=== PATIENT | male | born 1935 | race Caucasian/White ===

== ENCOUNTER → 2016-07-02 | Outpatient (CLI) | payer OTHER ==
[~2016-07-02] MED LIST: ACET-1256 PO; AMOX500C3 PO; AMOX500T PO; ASCO10003 PO; ASPI81TA28 PO; ATOR-26 PO; CALC600T9 PO; CHOL100010 PO; CHOL2000 PO; DIGO0.1267 PO; DOCU-94 PO; DOXY-300 PO; FURO-85 PO; GABA-112 PO; GABA1CAP4 PO; HMLI7525 SC; INSDGI SC; INSU50IN SC; LEVO112T4 PO; LEVO1TAB33 PO; LNX125 PO; LSN20 PO; METO1TAB70 PO; MULT-506 PO; NTRGSL/4 SL; NVLGI SC; POLY335019 PO; RIVA1.5T PO; SULF-183 PO; SULF800T23 PO; TRAM-10 PO; ULT50X PO; VITA400C15 PO; VITACAP37 PO; ZNTT/150 PO; [UNRECOGNIZED DRUG - CODE] PO
[2016-07-02 19:12] LABS: BLOOD UREA NITROGEN 65 mg/dl (7-18); BUN/CREATININE RATIO 19.7 (10-20); CALCIUM 9.1 mg/dl (8.5-10.1); CARBON DIOXIDE 27 mmol/L (21-32); CHLORIDE 98 mmol/L (98-107); GLUCOSE 299 mg/dl (70-99); POTASSIUM 4.6 mmol/L (3.5-5.1); SODIUM 136 mmol/L (136-145)
== END | disposition home or self-care (01) ==
LOC: C.LABBFT 11:56
PROVIDERS: ATTEND Internal Medicine Nephrology
DX: I12.9 Hypertensive chronic kidney disease with stage 1 through stage 4 chronic kidney disease, or unspecified chronic kidney disease (principal); R80.9 Proteinuria, unspecified; E55.9 Vitamin D deficiency, unspecified; N18.4 Chronic kidney disease, stage 4 (severe); R60.9 Edema, unspecified

== ENCOUNTER → 2016-07-29 | Outpatient (CLI) | payer OTHER ==
[2016-07-29 12:13] LABS: HEMATOCRIT 38.2 % (42-52); MEAN CORPUSCULAR HEMOGLOBIN 31.9 pg (25-34); MEAN CORPUSCULAR HGB CONC 33.2 g/dl (32-36); MEAN PLATELET VOLUME 10.5 fL (7.4-10.4); PLATELET COUNT 162 K/uL (130-400); RED BLOOD COUNT 3.98 M/uL (4.7-6.1); WHITE BLOOD COUNT 6.11 K/uL (4.8-10.8)
[2016-07-29 12:30] LABS: ESTIMATED AVERAGE GLUCOSE 246 mg/dl; HA1C FLAG Normal (Normal)
[2016-07-29 12:47] LABS: ALT/SGPT 27 U/L (12-78); BLOOD UREA NITROGEN 43 mg/dl (7-18); BUN/CREATININE RATIO 15.5 (10-20); CALCIUM 9.2 mg/dl (8.5-10.1); CARBON DIOXIDE 29 mmol/L (21-32); CHLORIDE 97 mmol/L (98-107); CHOLESTEROL 128 mg/dl (0-200); GLUCOSE 469 mg/dl (70-99); HDL CHOLESTEROL 32 mg/dl; LDL CHOLESTEROL CALCULATED 60 mg/dl; PHOSPHORUS 3.3 mg/dl (2.5-4.9); POTASSIUM 5.1 mmol/L (3.5-5.1); SODIUM 133 mmol/L (136-145); TRIGLYCERIDES 181 mg/dl (0-150); VERY LOW DENSITY LIPOPROT CALC 36 mg/dl
[2016-07-29 13:01] LABS: BETA-HYDROXYBUTYRATE 2.13 mg/dL (0.2-2.81)
== END | disposition home or self-care (01) ==
LOC: C.LAB 11:36
PROVIDERS: ATTEND Internal Medicine Endocrinology, Diabetes & Metabolism
DX: E11.9 Type 2 diabetes mellitus without complications (principal); I12.9 Hypertensive chronic kidney disease with stage 1 through stage 4 chronic kidney disease, or unspecified chronic kidney disease; I42.9 Cardiomyopathy, unspecified; E55.9 Vitamin D deficiency, unspecified; N18.4 Chronic kidney disease, stage 4 (severe); R60.9 Edema, unspecified

== ENCOUNTER → 2016-09-22 | Outpatient (CLI) | payer OTHER ==
[~2016-09-22] MED LIST changes: +CEPH500C PO; -FURO-85 PO; -INSDGI SC; +METO-648 PO; -METO1TAB70 PO
--- NOTE | 2016-09-22 15:11 | DIAGNOSTIC IMAGING REPORT ---
TEMPORAL BONE CT WITHOUT CONTRAST HISTORY: H90.5 Asymmetric SNHL (sensorineural hearing loss)PATIENT WITH L TECHNIQUE: Multiaxial CT images of the temporal bones were performed and reformatted in the coronal plane. COMPARISON STUDY: Head CT 05/19/2016. FINDINGS: On the right, the external auditory canal is patent. The middle ear cavity and mastoid air cells are clear. The ossicles are well aligned. The tympanic membrane demonstrates a normal position and thickness. The 7th cranial nerve describes a normal course. No evidence for inner ear dysplasia. The study is technically inadequate to evaluate for an internal auditory canal mass. However, no definite masses identified. On the left, the external auditory canal is patent. The middle ear cavity and mastoid air cells are clear. The ossicles are well aligned. The tympanic membrane demonstrates a normal position and thickness. The 7th cranial nerve describes a normal course. No evidence for inner ear dysplasia. The study is technically inadequate to evaluate for an internal auditory canal mass. However, no definite masses identified. Fluid level with near complete opacification of the left maxillary sinus and left anterior ethmoid air cells. Heterogeneity within the bones of the skull base may be due to osteoporosis. This remains unchanged. IMPRESSION: 1. Normal bilateral temporal bones. The study is technically inadequate to evaluate for an internal auditory canal mass. However, no definite masses identified. 2. Fluid levels within the near complete opacification of the left maxillary sinus and left anterior ethmoid air cells consistent with acute sinusitis. 3. Stable heterogeneity within the bones of the skull base. Given the stability this favors osteoporosis. Multiple myeloma could also have a similar appearance in the appropriate clinical setting. Electronically signed by: Alek Dennis M.D. 09/22/2016 3:10 PM Dictated Date/Time: 09/22/2016 2:58 PM
== END | disposition home or self-care (01) ==
LOC: C.CTS 12:50
DX: H90.5 Unspecified sensorineural hearing loss (principal); R93.0 Abnormal findings on diagnostic imaging of skull and head, not elsewhere classified

== ENCOUNTER 2016-09-27 10:23 | Emergency (ER) | payer OTHER ==
[~2016-09-27] VITALS: Ht 171.5 cm; Wt 112.1 kg
[~2016-09-27 10:23] MED LIST changes: -AMOX500T PO; -CEPH500C PO; -CHOL2000 PO; -GABA1CAP4 PO; -INSU50IN SC; -LEVO1TAB33 PO; -LNX125 PO; -SULF-183 PO; -TRAM-10 PO; -VITACAP37 PO
[2016-09-27 10:33] VITALS: TEMP 36.5; Ht 171.5 cm; Wt 112.1 kg
[2016-09-27] MEDS ORDERED: INSU50IN SC ×2 (11:16)
[2016-09-27] MEDS ORDERED: LEVO1TAB33 PO (11:16)
[2016-09-27] MEDS ORDERED: CHOL2000 PO (11:16)
[2016-09-27] MEDS ORDERED: LNX125 PO (11:16)
[2016-09-27] MEDS ORDERED: TRAM-10 PO (11:16)
[2016-09-27] MEDS ORDERED: SULF-183 PO (11:16)
[2016-09-27] MEDS ORDERED: VITACAP37 PO (11:16)
[2016-09-27] MEDS ORDERED: GABA1CAP4 PO (11:16)
--- NOTE | 2016-09-27 11:41 | DIAGNOSTIC IMAGING REPORT ---
CHEST 2 VIEWS ROUTINE CLINICAL HISTORY: Cough. COMPARISON STUDY: Chest radiograph May 09, 2014. FINDINGS: There are median sternotomy wires, mediastinal surgical clips and a left subclavian biventricular pacer/AICD. Cardiomediastinal silhouette is stable. There is no evidence of pulmonary edema. There is no consolidation to suggest pneumonia. A calcified right midlung nodule is again noted. IMPRESSION: No acute cardiopulmonary findings. Electronically signed by: Neto Aguilar M.D. 09/27/2016 11:39 AM Dictated Date/Time: 09/27/2016 11:38 AM
--- NOTE | 2016-09-27 12:32 | EMERGENCY ROOM VISIT NOTE ---
ED Visit Note First contact with patient: 10:42 81-year-old male with sinus drainage was fully evaluated by Octavio Stinson PA-C. I also independently evaluated the patient. The patient is currently on multiple antibiotics. The patient is to follow-up in wound care center tomorrow and further evaluation of the appropriate medications will be discussed at that appointment. The patient was felt safe to return home at this time.
[2016-09-27 12:50] VITALS: BP 131/69; PULSE 71; O2SAT 97
--- NOTE | 2016-10-03 07:31 | EMERGENCY ROOM VISIT NOTE ---
History First contact with patient: 10:42 Chief Complaint: COUGH Stated Complaint: COUGHING, SOB Nursing Triage Summary: Patient ambulatory to triage using cane, states he didn't sleep a wink last night due to "phlegm in my throat". Coughing but can't always clear his throat. Patient states cough began 2-3 days ago. Pt states patient has had cough intermittently x 1 month. Blood tinged sputum when he blows his nose. DM wound on right lower. Being treated. History of Present Illness The patient is a 81 year old white male who presents to the Emergency Room with complaints of persistent cough and some shortness of breath. He states he has had a cough for the last 3 days. There has been present intermittently for the last month. He has seen his PCP and was placed on an antibiotic for sinusitis. He states last night he felt as though he couldn't breathe when he laid down. This was because of thick phlegm in his throat. He complains of drainage down his throat from his sinuses. Cough is occasionally productive, but also occasionally nonproductive. He denies any chest pain. No fevers, chills, or sweats. No nausea or vomiting. No abdominal pain. He does complain of rhinorrhea that is occasionally blood-tinged. No other complaints. Of note, he is a diabetic and states he has a wound on his right lower leg that is being treated by the wound care center. He is on 2 additional antibiotics because of his leg wound. He is not seeking treatment for that here at this time. Review of Systems REVIEW OF SYSTEM: HEENT: No dizziness, visual problems, hearing loss, or tinnitus. There is no difficulty swallowing and no oral lesions are present. LYMPH: No adenopathy. PULMONARY: No hemoptysis. Positive cough, short of breath, and phlegm production. CARDIOVASCULAR: No chest pain, palpitations, or peripheral edema. GASTROINTESTINAL: No diarrhea, constipation, nausea, vomiting, or abdominal pain. GENITOURINARY: No dysuria, frequency, urgency or nocturia. NEUROLOGIC: No weakness, muscle tenderness, epilepsy or history of neurological problems. MUSCULOSKELETAL: No history of joint tenderness/swelling. Positive history of arthritis and arthralgias. SKIN: No rashes or lesions. PSYCHIATRIC: No history of depression or mental illness. ENDOCRINE: No history of thyroid disorders, or abnormal hair growth. Past Medical/Surgical History Medical Problems: (1) Coronary artery disease (2) Diabetes mellitus type 2, insulin dependent (3) Hypercholesterolemia (4) Hypertension (5) Kidney disease (6) Pacemaker (7) Prostate cancer (8) UTI (urinary tract infection) Surgical Problems: (1) H/O right knee surgery (2) Hx of CABG Family History Diabetes mellitus FHx: heart disease Hypertension Social History Smoking Status: Former Smoker Smokeless Tobacco Use: No Alcohol Use: none Drug Use: none Marital Status: Housing Status: lives with family Occupation Status: retired Current/Historical Medications Scheduled Ascorbic Acid (Vitamin C), 1,000 MG PO BID Aspirin (Aspirin Ec), 81 MG PO DAILY Atorvastatin (Lipitor), 80 MG PO DAILY Calcium Carbonate-Vitamin D (Calcium + D), 600 MG PO DAILY Cholecalciferol (Vitamin D3), 1 CAP PO DAILY Digoxin (Digoxin), 0.125 MG PO DAILY Docusate Sodium (Colace), 1 CAP PO BID Fexofenadine HCl (Aller-Ease Allergy), 1 TAB PO DAILY Gabapentin (Gabapentin), 600 MG PO BID Insulin Lispro Protamine & Lis (Humalog Mix 50/50), 100 UNITS SC QAM Insulin Lispro Protamine & Lis (Humalog Mix 50/50), 70 UNITS SC QPM Levofloxacin (Levaquin), 500 MG PO DAILY Levothyroxine Sodium (Levothyroxine Sodium), 112 MCG PO DAILY Lisinopril (Lisinopril), 20 MG PO DAILY Metoprolol Succinate (Toprol Xl), 200 MG PO DAILY Multivitamin (Multivitamin), 1 TAB PO DAILY Nitroglycerin (Nitrostat), 0.4 MG SL PRN Ranitidine (Zantac), 150 MG PO DAILY Rivaroxaban (Xarelto), 15 MG PO HS Sulfa/Trimethoprim (Bactrim Ds 800MG/160MG), 1 TAB PO BID Vitamin E (E-400), 400 UNITS PO DAILY Scheduled PRN Polyethylene Glycol 3350 (Miralax), 17 GM PO DAILY PRN for Constipation Tramadol (Ultram), 50 MG PO Q8H PRN for Pain Allergies Coded Allergies: No Known Allergies (Verified , 09/27/16) Physical Exam Vital Signs Date Time Temp Pulse Resp B/P Pulse Ox O2 Delivery O2 Flow Rate FiO2 09/27/16 12:50 71 131/69 97 4/9/17 10:33 36.5 86 17 118/66 100 Room Air Pain Rating (0-10): 0 Physical Exam Gen.: Well-developed, well-nourished, elderly white male, in no acute distress. Sitting on a bed. Alert and oriented. Skin:Warm and dry with fair turgor. No rashes or lesions. No ecchymosis or erythema. The patient is not diaphoretic. No abrasions. HEENT: Normocephalic atraumatic. Eyes PERRLA, EOMI. No conjunctiva or scleral injection. Ears TMs intact bilaterally with good light reflexes. No erythema or bulging. No hemotympanum. Canals are patent. Wax is present. Nares patent bilaterally without turbinate enlargement. Clear nasal drainage. No epistaxis. Oropharynx without erythema or exudate. Uvula midline, oral mucosa moist. No lesions present. Postnasal drip is noted. Lymphatics are palpated without anterior or posterior chain enlargement or tenderness. Heart: Heart RRR. No MGR. Peripheral pulses are 2+. Lungs: Lungs are clear to auscultation. No crackles rhonchi or wheezing. Good air movement. The patient is able to take a deep breath. Abdomen: Abdomen was inspected, auscultated, and palpated. Obese. Bowel sounds present x 4. Soft, nontender to palpation. No hepato-splenomegaly. No masses noted. Musculoskeletal: Gross motor function of the upper and lower extremities is intact and unremarkable. Medical Decision & Procedures ER Provider Diagnostic Interpretation: Chest x-ray obtained today was read by radiology as negative for acute cardiopulmonary findings. No evidence of pulmonary edema or consolidation. He does have a calcified right midlung nodule consistent with previous films. ED Course Patient and his were educated regarding today's findings. Conservative care measures were discussed. Chest x-ray was obtained. He was reassured that I do not suspect pneumonia or CHF. I'm concerned that he is on too many antibiotics and will end up with C. difficile colitis. He has an appointment with the wound care center tomorrow. I asked him to talk with them about consolidating his antibiotics. He is already on Levaquin for his sinuses. He should continue with this. A cool mist humidifier at home may improve his symptoms. He may also take a prolonged hot shower or breath steam to loosen his nasal mucus. He may require slight elevation in sleeping. He can also try a Heather pot if desired. Return to the ED for any other concerns Patient was seen in conjunction with Dr. Scales, who also evaluated the patient and concurred with today's diagnosis and treatment plan. Medical Decision Patient was reassured that I do not suspect pneumonia, CHF, strep pharyngitis, or upper airway obstruction. Impression Primary Impression: Sinusitis, acute maxillary Additional Impression: Cough Departure Information Dispostion Home / Self-Care Referrals Raymond Lara, DO Forms HOME CARE DOCUMENTATION FORM, COOL MIST HUMIDIFIER, IMPORTANT VISIT INFORMATION Patient Instructions Sinusitis Acute, My [facility] Additional Instructions Continue with your Levjesuuin Talk to the wound care center tomorrow about consolidating your antibiotics Use a cool mist humidifier at home Breathing steam or taking a prolonged hot shower may also loosen the nasal mucus Sleep with your head slightly elevated to improve breathing You may try a Heather pot to improve sinus drainage Return to the ED for any other concerns Problem Qualifiers
[2017-03-16] MEDS ORDERED: AMOX500T PO (09:52)
[2017-05-03] MEDS ORDERED: CEPH500C PO (08:57)
== END 2016-09-27 12:50 | disposition home or self-care (01) ==
LOC: C.EDB 10:24
DX: J01.00 Acute maxillary sinusitis, unspecified (principal); L97.919 Non-pressure chronic ulcer of unspecified part of right lower leg with unspecified severity; E11.9 Type 2 diabetes mellitus without complications; I25.10 Atherosclerotic heart disease of native coronary artery without angina pectoris; E78.00 Pure hypercholesterolemia, unspecified; I10 Essential (primary) hypertension; Z95.0 Presence of cardiac pacemaker; Z87.440 Personal history of urinary (tract) infections; Z80.42 Family history of malignant neoplasm of prostate; Z95.1 Presence of aortocoronary bypass graft; Z83.3 Family history of diabetes mellitus; Z82.49 Family history of ischemic heart disease and other diseases of the circulatory system; Z87.891 Personal history of nicotine dependence; Z79.82 Long term (current) use of aspirin; Z79.899 Other long term (current) drug therapy; Z79.4 Long term (current) use of insulin

== ENCOUNTER → 2016-10-28 | Outpatient (CLI) | payer OTHER ==
[~2016-10-28] MED LIST changes: -ACET-1256 PO; -AMOX500C3 PO; +AMOX500T PO; +CEPH500C PO; -CHOL100010 PO; +CHOL2000 PO; -DIGO0.1267 PO; -DOXY-300 PO; -GABA-112 PO; +GABA1CAP4 PO; -HMLI7525 SC; +INSU50IN SC; +LNX125 PO; -NVLGI SC; -SULF800T23 PO; +TRAM-10 PO; -ULT50X PO; -VITA400C15 PO; +VITACAP37 PO
[2016-10-28 14:40] LABS: ESTIMATED AVERAGE GLUCOSE 203 mg/dl; HA1C FLAG Normal (Normal)
--- NOTE | 2016-11-02 11:14 | CODING QUERY MEDICAL NECESSITY ---
CQSUPPORTING DIAGNOSIS NEEDED A supporting diagnosis is required for the test/procedure performed on this patient in order for us to be reimbursed by the patient's insurance. Please provide a supporting diagnosis for the following test/procedure listed below next to the test name along with your signature. *If there is no additional diagnosis for this patient that would support the following test/procedure please document that below next to the test/procedure. Test(s)/Procedure(s) that require a supporting diagnosis: TERRENCE 10/28/16 VITAMIN B12 TEST Provider Signature: Date: Thank you Perla Ruiz Health Information Management Once completed, please kindly fax back to [phone] For questions please call [phone]
== END | disposition home or self-care (01) ==
LOC: C.LAB1850 13:35
PROVIDERS: ATTEND Physician Assistant
DX: Z00.00 Encounter for general adult medical examination without abnormal findings (principal); R41.81 Age-related cognitive decline; E11.9 Type 2 diabetes mellitus without complications

== ENCOUNTER → 2016-12-30 | Outpatient (CLI) | payer OTHER ==
[~2016-12-30] MED LIST changes: -CEPH500C PO; -METO-648 PO; +METO1TAB70 PO
[2016-12-30 12:38] LABS: HEMATOCRIT 36.9 % (42-52); MEAN CELL VOLUME 94.6 fL (80-100); MEAN CORPUSCULAR HGB CONC 31.7 g/dl (32-36); MEAN PLATELET VOLUME 10.7 fL (7.4-10.4); PLATELET COUNT 174 K/uL (130-400); WHITE BLOOD COUNT 6.65 K/uL (4.8-10.8)
[2016-12-30 12:45] LABS: URINE APPEARANCE CLEAR (CLEAR); URINE BILIRUBIN NEG (NEG); URINE COLOR YELLOW; URINE NITRITE NEG (NEG); URINE SPECIFIC GRAVITY 1.012 (1.000-1.030); UROBILINOGEN NEG (NEG)
[2016-12-30 12:46] LABS: MANUAL MICROSCOPIC REQUIRED? NO; REVIEW REQ? NO
[2016-12-30 12:48] LABS: BLOOD UREA NITROGEN 38 mg/dl (7-18); BUN/CREATININE RATIO 13.1 (10-20); CALCIUM 8.7 mg/dl (8.5-10.1); CARBON DIOXIDE 29 mmol/L (21-32); CHLORIDE 100 mmol/L (98-107); GLUCOSE 272 mg/dl (70-99); INR 1.3 (0.9-1.1); PARTIAL THROMBOPLASTIN RATIO 1.4; POTASSIUM 4.6 mmol/L (3.5-5.1); PROTHROMBIN TIME (PATIENT) 14.2 SECONDS (9.0-12.0); SODIUM 137 mmol/L (136-145)
[2016-12-30 12:49] LABS: PHOSPHORUS 3.2 mg/dl (2.5-4.9)
[2016-12-30 13:12] LABS: URINE PROTIEN/CREAT RATIO 0.6 (0-0.2); URINE TOTAL PROTEIN 38.9 mg/dl (0-11.9)
== END | disposition home or self-care (01) ==
LOC: C.LABBFT 09:46
PROVIDERS: ATTEND Internal Medicine Nephrology
DX: Z01.818 Encounter for other preprocedural examination (principal); I12.9 Hypertensive chronic kidney disease with stage 1 through stage 4 chronic kidney disease, or unspecified chronic kidney disease; R80.9 Proteinuria, unspecified; N25.81 Secondary hyperparathyroidism of renal origin; E55.9 Vitamin D deficiency, unspecified; N18.4 Chronic kidney disease, stage 4 (severe); R60.9 Edema, unspecified; I48.91 Unspecified atrial fibrillation; Z51.81 Encounter for therapeutic drug level monitoring; Z79.899 Other long term (current) drug therapy

== ENCOUNTER → 2017-01-13 | Outpatient (CLI) | payer OTHER ==
[2017-01-13 18:15] LABS: BLOOD UREA NITROGEN 38 mg/dl (7-18); CALCIUM 8.6 mg/dl (8.5-10.1); CARBON DIOXIDE 31 mmol/L (21-32); CHLORIDE 102 mmol/L (98-107); GLUCOSE 215 mg/dl (70-99); PHOSPHORUS 3.4 mg/dl (2.5-4.9); POTASSIUM 5.1 mmol/L (3.5-5.1); SODIUM 137 mmol/L (136-145)
== END | disposition home or self-care (01) ==
LOC: C.LABBFT 16:45
PROVIDERS: ATTEND Internal Medicine Nephrology
DX: I12.9 Hypertensive chronic kidney disease with stage 1 through stage 4 chronic kidney disease, or unspecified chronic kidney disease (principal); R80.9 Proteinuria, unspecified; N18.4 Chronic kidney disease, stage 4 (severe); E55.9 Vitamin D deficiency, unspecified

== ENCOUNTER 2017-01-20 06:11 | Day surgery (SDC) | payer OTHER ==
[~2017-01-20] VITALS: Ht 171.5 cm; Wt 115.0 kg
[~2017-01-20 06:11] MED LIST changes: -AMOX500T PO; +SODIUM CHLORIDE 0.9% 1000ML IV SCH
[2017-01-20 06:50] VITALS: BP 160/84; PULSE 80; TEMP 36.5; O2SAT 96; Ht 171.5 cm; Wt 115.0 kg
--- NOTE | 2017-01-20 07:47 | Procedure Note ---
Pre-Mod Sedation Assessment General Date of Moderate Sedation: Jan 20, 2017. Vital Signs: Vital Signs Past 12 Hours Date Time Temp Pulse Resp B/P (MAP) Pulse Ox O2 Delivery O2 Flow Rate FiO2 01/20/17 06:50 36.5 80 20 160/84 (109) 96 Room Air Review Cardiovascular: regular rate, rhythm, no edema, + systolic murmur Abdomen: normal bowel sounds, non tender Lungs: chest non-tender, lungs clear Airway Class: III Pre-Sedation Airway Assessment Oral Cavity: Dentures Able to Visualize Vocal Cords: No Short Thick Neck: Yes Hx of Sleep Apnea: No Smoking Status: Former Smoker Mallampati Classification: Class III ASA Classification: Class II Procedure Planning Contraindications-for Mod Sed: None Yes Notes The planned sedation has been discussed with the patient and consent obtained. I have identified the patient, determined the appropriateness of sedation and have assessed the patient immediately prior to the procedure. All medicine(s) and interventions are by my order.
--- NOTE | 2017-01-20 07:48 | History & Physical Bridge Note ---
H&P Re-Evaluation Bridge Note: I have examined the patient, reviewed the History & Physical and in the interval since the performance of the History & Physical I have noted the following changes of clinical significance: No changes noted
[2017-01-20] MEDS ORDERED: LIDOCAINE HCL 1% 20 ML VIAL ONE (07:52)
[2017-01-20] MEDS ORDERED: LIDOCAINE/EPINEPHRINE 1% INJ 50 ML VIAL ONE (07:52)
[2017-01-20] MEDS ORDERED: FENTANYL CITRATE INJ 50 MCG/1 ML 2 ML VIAL ONE (07:53)
[2017-01-20] MEDS ORDERED: SODIUM BICARB 8.4% INJ 50 MEQ/50 ML SYR IV ONE (07:53)
[2017-01-20] MEDS ORDERED: MIDAZOLAM HCL 1 MG/ML 2ML VIAL ONE (07:53)
[2017-01-20 08:10] VITALS: BP 160/84; PULSE 80; TEMP 36.5; O2SAT 96
[2017-01-20] MEDS ORDERED: LIDOCAINE HCL 1% 20 ML VIAL INJ ONE (09:10)
--- NOTE | 2017-01-20 09:41 | Procedure Note ---
Post-Mod Sedation Assessment General Date of Moderate Sedation Jan 20, 2017. Vital Signs: Vital Signs Past 12 Hours Date Time Temp Pulse Resp B/P (MAP) Pulse Ox O2 Delivery O2 Flow Rate FiO2 01/20/17 08:10 36.5 80 20 160/84 96 Room Air 01/20/17 06:50 36.5 80 20 160/84 (109) 96 Room Air Review - Discharge Criteria Vital Signs Stable: Yes Alert/Oriented/Conversant: Yes Returned to Baseline Mental St: Yes Nausea Absent/Minimal: Yes Pain/Discomfort/Absent/Minimal: Yes Normal/Baseline Respirations: Yes Active Bleeding?: No Pt Received D/C Instructions: Yes Prescriptions Given: None Specific Proced. D/C Criteria Distal Pulses Present (Cardiac: Yes Groin site assessed-Card Cath: N/A Voided Prior To Discharge: N/A Discharged Patients Adult Escort/Transportation: Yes
[2017-01-20] MEDS ORDERED: ORM MISCELLANEOUS MED XX ONE (09:43)
--- NOTE | 2017-01-20 09:44 | [facility] Operative Report ---
Operative Report Operative Date Jan 20, 2017. Pre-Operative Diagnosis chronic venous insufficiency Post-Operative Diagnosis Chronic venous insufficiency Procedure(s) Performed Right GSV RF ablation Surgeon Dr. Owusu Tube Pusher Surgeon(s) none Estimated Blood Loss 3 ml Findings Dilated Right GSV with varicosities Specimens none Drains None Anesthesia 1% lidocaine Complication(s) None Disposition Recovery Room / PACU Indications CVI, Venous ulcers Description of Procedure US guided access Right GSV below the knee. Catheter inserted, 3cm from SFJ. Tumescent injected. US confirmed not in deep system. 3:00,10 cycles of RFA right GSV. No complications. Patient tolerated well. US confirmed no DVT post procedure. I attest to the content of the Intraoperative Record and any orders documented therein. Any exceptions are noted below.
--- NOTE | 2017-01-20 09:49 | Discharge Instructions ---
Discharge Instructions Procedure Procedure Date: Jan 20, 2017. Reason for Visit: Venous Ulcer. Discharge Discharge Date: Jan 20, 2017. Discharge Diagnosis: Chronic venous insufficiency Last Recorded Wt (Kilograms): 115 Instructions Activity Recommendations: limitations as noted below Recommended Home Diet: resume previous diet Allergies: Coded Allergies: No Known Allergies (Verified , 01/20/17) Follow Up Additional Instructions: Follow instructions on paperwork from Dr. Owusu' office Follow-up with: Follow-up ultrasound at Dr. Owusu' office on Wednesday [facility] Recommendations: Call your doctor if: * Temperature above 101 degrees * Pain not relieved by pain medicine ordered * There is increased drainage or redness from any incision * You have any unanswered questions or concerns. Your Doctors Instructions noted above were prepared by provider Juno Owusu. Patient Signature Section: Patient Instructions Signature Page Lance Holder Patient (or Guardian) Signature/Date: I have read and understand the instructions given to me by my caregivers. Caregiver/RN/Doctor Signature/Date: The above-named patient and/or guardian has received patient instructions on this date. + Original Patient Signature Page (only) stays with chart. Please make copy for patient.
[2017-01-20 09:55] VITALS: BP 159/77; PULSE 63; TEMP 36.8; O2SAT 99
[2017-01-20 10:25] VITALS: BP 170/90; PULSE 62; TEMP 36.6; O2SAT 100
[2017-01-20 10:55] VITALS: BP 154/74; PULSE 60; TEMP 36.6; O2SAT 98
[2017-03-16] MEDS ORDERED: AMOX500T PO (09:52)
== END 2017-01-20 11:15 | disposition home or self-care (01) ==
LOC: C.ACU 06:11
PROVIDERS: ATTEND Internal Medicine Interventional Cardiology
DX: I87.2 Venous insufficiency (chronic) (peripheral) (principal); L97.909 Non-pressure chronic ulcer of unspecified part of unspecified lower leg with unspecified severity; I50.22 Chronic systolic (congestive) heart failure; I48.91 Unspecified atrial fibrillation; Z79.01 Long term (current) use of anticoagulants

== ENCOUNTER → 2017-02-10 | Day surgery (SDC) | payer OTHER ==
[~2017-02-10] VITALS: Ht 171.5 cm; Wt 115.5 kg
[~2017-02-10] MED LIST changes: +AMOX500T PO; +FENTANYL CITRATE INJ 50 MCG/1 ML 2 ML VIAL ONE; +LIDOCAINE HCL 1% 20 ML VIAL INJ ONE; +LIDOCAINE HCL 1% 20 ML VIAL ONE; +LIDOCAINE/EPINEPHRINE 1% INJ 50 ML VIAL ONE; +MIDAZOLAM HCL 1 MG/ML 2ML VIAL ONE; +ORM MISCELLANEOUS MED XX ONE; +SODIUM BICARB 8.4% INJ 50 MEQ/50 ML SYR IV ONE
[2017-02-10 06:56] VITALS: BP 161/77; PULSE 84; TEMP 36.7; O2SAT 96; Ht 171.5 cm; Wt 115.5 kg
[2017-02-10 07:27] VITALS: BP 161/77; PULSE 84; TEMP 36.7; O2SAT 96
[2017-02-10 08:08] VITALS: BP 161/77; PULSE 84; TEMP 36.7; O2SAT 96
--- NOTE | 2017-02-10 08:08 | Procedure Note ---
Pre-Mod Sedation Assessment General Date of Moderate Sedation: Feb 10, 2017. Vital Signs: Vital Signs Past 12 Hours Date Time Temp Pulse Resp B/P (MAP) Pulse Ox O2 Delivery O2 Flow Rate FiO2 02/10/17 07:27 36.7 84 22 161/77 96 Room Air 02/10/17 06:56 36.7 84 22 161/77 (105) 96 Room Air Review Cardiovascular: regular rate, rhythm, no edema Abdomen: normal bowel sounds, non tender Lungs: chest non-tender, lungs clear Airway Class: III Pre-Sedation Airway Assessment Oral Cavity: Dentures Able to Visualize Vocal Cords: No Short Thick Neck: No Hx of Sleep Apnea: No Smoking Status: Former Smoker Mallampati Classification: Class III ASA Classification: Class III Procedure Planning Contraindications-for Mod Sed: None Yes Notes The planned sedation has been discussed with the patient and consent obtained. I have identified the patient, determined the appropriateness of sedation and have assessed the patient immediately prior to the procedure. All medicine(s) and interventions are by my order.
--- NOTE | 2017-02-10 08:14 | History and Physical ---
History & Physical Date Feb 10, 2017. History of Present Illness Mr. Holder is an 82-year-old male with a medical history significant for atrial fibrillation, coronary artery disease s/p CABG, cardiomyopathy, chronic systolic CHF, left bundle branch block and CKD who was followed by the wound clinic for nonhealing lower extremity ulcerations. He returns today for R SSV RF ablation Patient has had bilateral lower extremity ulceration for more than 1 year. These have been slow to heal despite advanced wound care, compression stockings , diuretics. He had recent venous reflux ultrasound study which showed a right GSV that was dilated with reflux as well as a right SSV that was dilated with reflux. He underwent successful R GSV RF ablation on 01/20/2017. Past Medical/Surgical History Medical Problems: (1) Coronary artery disease (2) Diabetes mellitus type 2, insulin dependent (3) Hypercholesterolemia (4) Hypertension (5) Kidney disease (6) Pacemaker (7) Prostate cancer (8) UTI (urinary tract infection) Surgical Problems: (1) H/O right knee surgery (2) Hx of CABG Additional History Hepatic Disease: No Endocrine Disorder: No Kidney Disease: Yes Hypertension: Yes Heart Disease: Yes Bleeding Tendencies: No Infectious Diseases: No Allergies Coded Allergies: No Known Allergies (Verified , 02/10/17) Home Medications Scheduled Ascorbic Acid (Vitamin C), 1,000 MG PO BID Aspirin (Aspirin Ec), 81 MG PO DAILY Atorvastatin (Lipitor), 80 MG PO DAILY Calcium Carbonate-Vitamin D (Calcium + D), 600 MG PO DAILY Cholecalciferol (Vitamin D3), 1 CAP PO DAILY Digoxin (Digoxin), 0.125 MG PO DAILY Docusate Sodium (Colace), 1 CAP PO BID Fexofenadine HCl (Aller-Ease Allergy), 1 TAB PO DAILY Gabapentin (Gabapentin), 600 MG PO BID Insulin Lispro Protamine & Lis (Humalog Mix 50/50), 100 UNITS SC QAM Insulin Lispro Protamine & Lis (Humalog Mix 50/50), 80 UNITS SC QPM Levothyroxine Sodium (Levothyroxine Sodium), 112 MCG PO DAILY Lisinopril (Lisinopril), 20 MG PO DAILY Metoprolol Succinate (Toprol Xl), 200 MG PO DAILY Multivitamin (Multivitamin), 1 TAB PO DAILY Nitroglycerin (Nitrostat), 0.4 MG SL PRN Ranitidine (Zantac), 150 MG PO DAILY Rivaroxaban (Xarelto), 15 MG PO HS Vitamin E (E-400), 400 UNITS PO DAILY Scheduled PRN Polyethylene Glycol 3350 (Miralax), 17 GM PO DAILY PRN for Constipation Tramadol (Ultram), 50 MG PO Q8H PRN for Pain Physical Examination Skin: warm/dry Eyes: normal inspection ENT: normal ENT inspection Neck: supple Respiratory/Chest: lungs clear Cardiovascular: regular rate, rhythm, no murmur Abdomen / GI: normal bowel sounds Back: normal inspection Extremities: + pertinent finding (edema, dressing in place) Neurologic/Psych: no motor/sensory deficits Diagnosis Chronic venous insufficiency Venous ulcerations ASA Classification: ASA Class III Plan of Treatment Right SSV RF ablation.
--- NOTE | 2017-02-10 09:32 | Procedure Note ---
Post-Mod Sedation Assessment General Date of Moderate Sedation Feb 10, 2017. Vital Signs: Vital Signs Past 12 Hours Date Time Temp Pulse Resp B/P (MAP) Pulse Ox O2 Delivery O2 Flow Rate FiO2 02/10/17 08:08 36.7 84 22 161/77 96 Room Air 02/10/17 07:27 36.7 84 22 161/77 96 Room Air 02/10/17 06:56 36.7 84 22 161/77 (105) 96 Room Air Review - Discharge Criteria Vital Signs Stable: Yes Alert/Oriented/Conversant: Yes Returned to Baseline Mental St: Yes Nausea Absent/Minimal: Yes Pain/Discomfort/Absent/Minimal: Yes Normal/Baseline Respirations: Yes Active Bleeding?: No Pt Received D/C Instructions: Yes Prescriptions Given: None Specific Proced. D/C Criteria Distal Pulses Present (Cardiac: N/A Groin site assessed-Card Cath: N/A Voided Prior To Discharge: N/A Discharged Patients Adult Escort/Transportation: Yes
--- NOTE | 2017-02-10 09:35 | [facility] Operative Report ---
Operative Report Operative Date Feb 10, 2017. Pre-Operative Diagnosis Venous insufficiency Post-Operative Diagnosis Venous insufficiency Procedure(s) Performed Right SSV RF ablation Surgeon Umer Councilperson Surgeon(s) Marivel Estimated Blood Loss 4 Findings Dilated SSV proximally Drains None Anesthesia Local Complication(s) None Disposition Recovery Room / PACU Description of Procedure US guided access Right SSV above ankle/current wound. Catheter inserted, 3cm from junction with popliteal (below the knee) Tumescent injected. US confirmed not in deep system. 1:40, 5 cycles of RFA right SSV. No complications. Patient tolerated well. US confirmed no DVT post procedure. I attest to the content of the Intraoperative Record and any orders documented therein. Any exceptions are noted below.
--- NOTE | 2017-02-10 09:37 | Discharge Instructions ---
Discharge Instructions Procedure Procedure Date: Feb 10, 2017. Reason for Visit: Right Leg Venous Ulcer. Discharge Discharge Date: Feb 10, 2017. Discharge Diagnosis: Venous insufficiency Last Recorded Wt (Kilograms): 115.5 Anesthesia Post Anesthesia Instructions: If you have had General Anesthesia or IV Sedation: * Do not drive today. * Resume driving when surgeon permits. * Do not make important decisions or sign legal documents today. * Call surgeon for: 1. Temperature elevations greater than 101 degrees F. 2. Uncontrollable pain. 3. Excessive bleeding. 4. Persistent nausea and vomiting. 5. Medication intolerance (nausea, vomiting or rash). * For nausea and vomiting use only clear liquids such as: tea, soda, bouillon until nausea subsides, then gradually increase diet as tolerated. * If you have any concerns or questions, call your surgeon's office. If physician is unavailable and it is an emergency, call 911 or go to the nearest emergency room. Instructions Activity Recommendations: resume regular activity Recommended Home Diet: resume previous diet Allergies: Coded Allergies: No Known Allergies (Verified , 02/10/17) Follow Up Additional Instructions: LINSEY wrap until Wednesday wound clinic follow-up Follow up Ultrasound as scheduled. Any severe pain, present to the emergency room concerned about DVT. Follow-up with: Dr. Lara on Wednesday Dr. Owusu as scheduled De[facility]y Recommendations: Call your doctor if: * Temperature above 101 degrees * Pain not relieved by pain medicine ordered * There is increased drainage or redness from any incision * You have any unanswered questions or concerns. Your Doctors Instructions noted above were prepared by provider Juno Owusu. Patient Signature Section: Patient Instructions Signature Page Lance Holder Patient (or Guardian) Signature/Date: I have read and understand the instructions given to me by my caregivers. Caregiver/RN/Doctor Signature/Date: The above-named patient and/or guardian has received patient instructions on this date. + Original Patient Signature Page (only) stays with chart. Please make copy for patient.
[2017-02-10 09:45] VITALS: BP 141/68; PULSE 60; TEMP 36.6; O2SAT 96
[2017-02-10 10:15] VITALS: BP 136/67; PULSE 60; TEMP 36.6; O2SAT 98
== END | disposition home or self-care (01) ==
LOC: C.ACU 06:09
PROVIDERS: ATTEND Internal Medicine Interventional Cardiology
DX: I87.2 Venous insufficiency (chronic) (peripheral) (principal); I48.91 Unspecified atrial fibrillation; I25.10 Atherosclerotic heart disease of native coronary artery without angina pectoris; I44.7 Left bundle-branch block, unspecified; I42.9 Cardiomyopathy, unspecified; E11.22 Type 2 diabetes mellitus with diabetic chronic kidney disease; I13.0 Hypertensive heart and chronic kidney disease with heart failure and stage 1 through stage 4 chronic kidney disease, or unspecified chronic kidney disease; I50.22 Chronic systolic (congestive) heart failure; N18.9 Chronic kidney disease, unspecified; E78.00 Pure hypercholesterolemia, unspecified; Z85.46 Personal history of malignant neoplasm of prostate; Z95.1 Presence of aortocoronary bypass graft; Z95.0 Presence of cardiac pacemaker; Z79.82 Long term (current) use of aspirin; Z79.4 Long term (current) use of insulin; Z79.899 Other long term (current) drug therapy

== ENCOUNTER → 2017-03-16 | Outpatient (CLI) | payer OTHER ==
[~2017-03-16] MED LIST changes: -FENTANYL CITRATE INJ 50 MCG/1 ML 2 ML VIAL ONE; -LIDOCAINE HCL 1% 20 ML VIAL INJ ONE; -LIDOCAINE HCL 1% 20 ML VIAL ONE; -LIDOCAINE/EPINEPHRINE 1% INJ 50 ML VIAL ONE; -MIDAZOLAM HCL 1 MG/ML 2ML VIAL ONE; -ORM MISCELLANEOUS MED XX ONE; -SODIUM BICARB 8.4% INJ 50 MEQ/50 ML SYR IV ONE; -SODIUM CHLORIDE 0.9% 1000ML IV SCH
[2017-03-16 18:13] LABS: BASO % 0.5 %; BASO ABS # 0.03 K/uL (0-0.2); COMPLETE YES; EOS % 2.6 %; HEMATOCRIT 33.6 % (42-52); IG% 0.9 %; LYMPH ABS # 1.12 K/uL (1.2-3.4); MEAN CELL VOLUME 93.6 fL (80-100); MEAN CORPUSCULAR HEMOGLOBIN 30.1 pg (25-34); MEAN CORPUSCULAR HGB CONC 32.1 g/dl (32-36); MEAN PLATELET VOLUME 10.8 fL (7.4-10.4); MONO % 7.9 %; NEUT % 71.1 %; PLATELET COUNT 183 K/uL (130-400); RED BLOOD COUNT 3.59 M/uL (4.7-6.1); WHITE BLOOD COUNT 6.57 K/uL (4.8-10.8)
[2017-03-16 18:44] LABS: URINE APPEARANCE CLEAR (CLEAR); URINE BILIRUBIN NEG (NEG); URINE COLOR YELLOW; URINE EPITHELIAL CELL AUTO 0-5 /lpf (0-5); URINE NITRITE NEG (NEG); URINE SPECIFIC GRAVITY 1.017 (1.000-1.030); UROBILINOGEN NEG (NEG)
[2017-03-16 18:49] LABS: MANUAL MICROSCOPIC REQUIRED? NO; REVIEW REQ? NO
[2017-03-16 18:57] LABS: URINE PROTIEN/CREAT RATIO 0.5 (0-0.2); URINE TOTAL PROTEIN 32.8 mg/dl (0-11.9)
[2017-03-16 19:20] LABS: BLOOD UREA NITROGEN 62 mg/dl (7-18); BUN/CREATININE RATIO 18.3 (10-20); CALCIUM 8.6 mg/dl (8.5-10.1); CARBON DIOXIDE 24 mmol/L (21-32); CHLORIDE 99 mmol/L (98-107); PHOSPHORUS 3.7 mg/dl (2.5-4.9); POTASSIUM 5.3 mmol/L (3.5-5.1); SODIUM 133 mmol/L (136-145)
[2017-03-16 19:21] LABS: GLUCOSE 499 mg/dl (70-99)
[2017-03-16 19:35] LABS: BETA-HYDROXYBUTYRATE 2.15 mg/dL (0.2-2.81)
[2017-03-17 06:18] LABS: ESTIMATED AVERAGE GLUCOSE 226 mg/dl; HA1C FLAG Normal (Normal)
== END | disposition home or self-care (01) ==
LOC: C.LABBFT 15:17
PROVIDERS: ATTEND Internal Medicine Nephrology
DX: I12.9 Hypertensive chronic kidney disease with stage 1 through stage 4 chronic kidney disease, or unspecified chronic kidney disease (principal); R80.9 Proteinuria, unspecified; E55.9 Vitamin D deficiency, unspecified; N18.4 Chronic kidney disease, stage 4 (severe); R60.9 Edema, unspecified; E11.9 Type 2 diabetes mellitus without complications

== ENCOUNTER → 2017-04-15 | Outpatient (CLI) | payer OTHER ==
[~2017-04-15] MED LIST changes: -AMOX500T PO; +METO-648 PO; -METO1TAB70 PO
[2017-04-15 12:37] LABS: BLOOD UREA NITROGEN 52 mg/dl (7-18); BUN/CREATININE RATIO 17.7 (10-20); CALCIUM 8.9 mg/dl (8.5-10.1); CARBON DIOXIDE 27 mmol/L (21-32); CHLORIDE 102 mmol/L (98-107); CREATININE 2.91 mg/dl (0.60-1.40); GLUCOSE 176 mg/dl (70-99); POTASSIUM 4.6 mmol/L (3.5-5.1); SODIUM 136 mmol/L (136-145)
[2017-04-15 12:38] LABS: PHOSPHORUS 3.5 mg/dl (2.5-4.9)
== END | disposition home or self-care (01) ==
LOC: C.LABBFT 11:05
PROVIDERS: ATTEND Internal Medicine Nephrology
DX: N17.9 Acute kidney failure, unspecified (principal); R80.9 Proteinuria, unspecified; N25.81 Secondary hyperparathyroidism of renal origin; R60.9 Edema, unspecified; N18.4 Chronic kidney disease, stage 4 (severe); E55.9 Vitamin D deficiency, unspecified; D64.9 Anemia, unspecified

== ENCOUNTER → 2017-07-09 | Outpatient (CLI) | payer OTHER ==
[2017-07-09 16:33] LABS: BASO % 0.4 %; BASO ABS # 0.03 K/uL (0-0.2); COMPLETE YES; EOS % 3.6 %; EOS ABS # 0.25 K/uL (0-0.5); HEMATOCRIT 37.6 % (42-52); IG# 0.02 K/uL (0.00-0.02); IG% 0.3 %; LYMPH % 14.8 %; LYMPH ABS # 1.02 K/uL (1.2-3.4); MEAN CORPUSCULAR HGB CONC 31.9 g/dl (32-36); MEAN PLATELET VOLUME 11.3 fL (7.4-10.4); MONO % 9.3 %; MONO ABS # 0.64 K/uL (0.11-0.59); NEUT % 71.6 %; NEUT ABS # 4.91 K/uL (1.4-6.5); PLATELET COUNT 156 K/uL (130-400); RED CELL DISTRIBUTION WIDTH CV 14.2 % (11.5-14.5); RED CELL DISTRIBUTION WIDTH SD 48.4 fL (36.4-46.3); WHITE BLOOD COUNT 6.87 K/uL (4.8-10.8)
[2017-07-09 16:54] LABS: ALBUMIN 3.2 gm/dl (3.4-5.0); ALT/SGPT 32 U/L (12-78); AST/SGOT 31 U/L (15-37); BLOOD UREA NITROGEN 63 mg/dl (7-18); BUN/CREATININE RATIO 19.1 (10-20); CALCIUM 8.8 mg/dl (8.5-10.1); CARBON DIOXIDE 28 mmol/L (21-32); CHLORIDE 101 mmol/L (98-107); CREATININE 3.29 mg/dl (0.60-1.40); EstGFR CKD-E AfrAm 19.3; EstGFR CKD-E NON AfrAm 16.7; POTASSIUM 4.4 mmol/L (3.5-5.1); SODIUM 135 mmol/L (136-145)
[2017-07-09 16:54] LABS: GLUCOSE 206 mg/dl (70-99)
[2017-07-09 16:58] LABS: URINE APPEARANCE CLEAR (CLEAR); URINE BACTERIA AUTO NEG (NEG); URINE BILIRUBIN NEG (NEG); URINE BLOOD HGB NEG (NEG); URINE COLOR YELLOW; URINE GLUCOSE(DIPSTICK) NEG (NEG); URINE HYALINE CAST (AUTO) 0 /lpf (0-5); URINE KETONES NEG (NEG); URINE LEUKOCYTE ESTERASE MODERATE (NEG); URINE NITRITE NEG (NEG); URINE PH 5.5 (4.5-7.5); URINE PROTEIN(DIPSTICK) 1+ (NEG); URINE RBC AUTO 0-4 /hpf (0-4); URINE SPECIFIC GRAVITY 1.015 (1.000-1.030); UROBILINOGEN NEG (NEG)
[2017-07-09 16:58] LABS: ZZUR CULT IF INDIC CLEAN CATCH YES
[2017-07-09 17:05] LABS: ALB/GLOB RATIO 0.9 (0.9-2); ALKALINE PHOSPHATASE 148 U/L (45-117); TOTAL PROTEIN 6.9 gm/dl (6.4-8.2)
[2017-07-09 17:18] LABS: MANUAL MICROSCOPIC REQUIRED? NO; REVIEW REQ? NO
[2017-07-09 17:53] LABS: VITAMIN B12** 680 pg/mL (211-911)
== END | disposition home or self-care (01) ==
LOC: C.LABBFT 11:25
DX: E11.65 Type 2 diabetes mellitus with hyperglycemia (principal); I10 Essential (primary) hypertension; D64.9 Anemia, unspecified; E03.9 Hypothyroidism, unspecified; E11.29 Type 2 diabetes mellitus with other diabetic kidney complication; Z79.01 Long term (current) use of anticoagulants; R41.81 Age-related cognitive decline

== ENCOUNTER 2017-07-12 16:14 | Emergency (ER) | payer OTHER ==
[~2017-07-12] VITALS: Ht 170.2 cm; Wt 110.0 kg
[~2017-07-12 16:14] MED LIST changes: +CEPH500C2 PO; -METO-648 PO; +METO200T31 PO
[2017-07-12 16:56] VITALS: TEMP 36.6; Ht 170.2 cm; Wt 110.0 kg
[2017-07-12] MEDS ORDERED: INSU50IN SQ (17:11)
[2017-07-12] MEDS ORDERED: OXYMETAZOLINE HCL 0.05% NA SPR 15 ML BTL ONE (17:45)
--- NOTE | 2017-07-12 19:00 | EMERGENCY ROOM VISIT NOTE ---
ED Visit Note First contact with patient: 17:12 I have seen and examined this patient with Nestor Ortega and generally agree with the treatment plan as discussed. Patient with no active bleeding on bedside exam. Additional questions answered. Patient and family comfortable with plan for discharge. Discussed symptoms to watch and return for.
[2017-07-12 19:15] VITALS: BP 135/77; PULSE 63; O2SAT 97
--- NOTE | 2017-07-13 15:52 | EMERGENCY ROOM VISIT NOTE ---
History First contact with patient: 17:12 Chief Complaint: NOSE BLEED (MINOR) Stated Complaint: NOSE BLEED History of Present Illness The patient is a 82 year old male who presents to the Emergency Room with complaints of intermittent nose bleeding off and on today. The patient does not have injury or trauma that he knows of. He is on Xarelto, and has been for several years for cardiac concerns. The patient has been using propane heat in the home, and recently turned on a humidifier because of the dryness in the house. The patient has not had fever or chills. No headache, neck pain, or chest pains. He does not have other complaints. He rates his current discomfort a 0/10. Review of Systems More than 10 systems were reviewed and otherwise negative with the exception of history of present illness. Past Medical/Surgical History Medical Problems: (1) Coronary artery disease (2) Diabetes mellitus type 2, insulin dependent (3) Hypercholesterolemia (4) Hypertension (5) Kidney disease (6) Pacemaker (7) Prostate cancer (8) UTI (urinary tract infection) Surgical Problems: (1) H/O right knee surgery (2) Hx of CABG Family History Diabetes mellitus FHx: heart disease Hypertension Social History Smoking Status: Never Smoker Alcohol Use: none Drug Use: none Marital Status: Housing Status: lives with family Occupation Status: retired Current/Historical Medications Scheduled Ascorbic Acid (Vitamin C), 1,000 MG PO BID Aspirin (Aspirin Ec), 81 MG PO DAILY Atorvastatin (Lipitor), 80 MG PO HS Calcium Carbonate-Vitamin D (Calcium + D), 600 MG PO QAM Cephalexin Monohydrate (Keflex), 500 MG PO TID Cholecalciferol (Vitamin D3), 1 CAP PO QAM Digoxin (Digoxin), 0.125 MG PO QAM Docusate Sodium (Colace), 1 CAP PO BID Fexofenadine HCl (Aller-Ease Allergy), 1 TAB PO QAM Gabapentin (Gabapentin), 600 MG PO BID Insulin Lispro Protamine & Lis (Humalog Mix 50/50), 100 UNITS SC QAM Insulin Lispro Protamine & Lis (Humalog Mix 50/50), 85 UNITS SC NOON Insulin Lispro Protamine & Lis (Humalog Mix 50/50), 0 SQ 1730 Levothyroxine Sodium (Levothyroxine Sodium), 112 MCG PO QAM Lisinopril (Lisinopril), 20 MG PO QAM Metoprolol Succinate (Toprol Xl), 200 MG PO QAM Multivitamin (Multivitamin), 1 TAB PO QAM Nitroglycerin (Nitrostat), 0.4 MG SL PRN Ranitidine (Zantac), 150 MG PO QAM Rivaroxaban (Xarelto), 15 MG PO QAM Vitamin E (E-400), 400 UNITS PO QAM Scheduled PRN Polyethylene Glycol 3350 (Miralax), 17 GM PO DAILY PRN for Constipation Tramadol (Ultram), 50 MG PO Q8H PRN for Pain Physical Exam Vital Signs Date Time Temp Pulse Resp B/P (MAP) Pulse Ox O2 Delivery O2 Flow Rate FiO2 07/12/17 19:15 63 18 135/77 97 07/12/17 16:56 36.6 63 18 135/77 97 Room Air Physical Exam VITALS: Vitals are noted on the nurse's note and reviewed by myself. Vital signs stable. GENERAL: Well-developed, well-nourished, white male, who is in no acute distress and resting comfortably. Patient is cooperative with the examination. HEAD: Normocephalic atraumatic. EARS: External ear normal. External auditory canals clear, tympanic membranes pearly edge without erythema or effusion bilaterally. EYES: Pupils equal round and reactive to light and accommodation. Conjunctivae without injection, sclerae without icterus. Extraocular movements intact. NOSE: Patent, turbinates without inflammation or discharge. There is dried blood in the right side nares anteriorly with small clot. No active bleeding noted. MOUTH: Mucous membranes moist. Tonsils are not enlarged. Pharynx without erythema, blood, or exudate. Uvula midline. Airway patent. NECK: Supple without nuchal rigidity. No lymphadenopathy. No thyromegaly. Cervical spine is nontender. HEART: Regular rate and rhythm without murmurs gallops or rubs. LUNGS: Clear to auscultation bilaterally without wheezes, rales or rhonchi. No retractions or accessory muscle use. Medical Decision & Procedures ED Course Physical exam and history were performed. Nursing notes, EMR, and Medication List were personally reviewed. Patient appears to have had intermittent episodes of epistaxis today. On examination the patient appears without active bleeding. The patient was monitored here in the ER for recurrent bleeding. The case was discussed with my attending physician, Dr. Gongora, who also evaluated the patient. The patient continued to be without symptoms here in the department and more aggressive intervention was not necessary. He is not hypertensive and is without other symptoms. The patient will be given Afrin to use at home if he has another bleed. He is also given a nasal clamp. The patient is to follow with his primary care physician or ENT. He was otherwise invited back to the ER with any new, worsening, or concerning symptoms. The chart was completed utilizing [employer] Speech Voice Recognition Software. Grammatical errors, random word insertions, pronoun errors, and incomplete sentences are an occasional consequence of this system due to software limitations, ambient noise, and hardware issues. Any formal questions or concerns about the content, text, or information contained within the body of this dictation should be directly addressed to the provider for clarification. . Medical Decision Differential diagnosis: Etiologies such as anterior epistaxis, coagulopathy, traumatic injury, fracture , septal hematoma, posterior epistaxis as well as other pathologies were entertained. Medication Reconcilliation Current Medication List: was personally reviewed by me Blood Pressure Screening Patient's blood pressure: Normal blood pressure Impression Primary Impression: Bleeding nose Departure Information Dispostion Home / Self-Care Condition GOOD Forms HOME CARE DOCUMENTATION FORM, IMPORTANT VISIT INFORMATION Patient Instructions My [facility] Additional Instructions You were seen and evaluated today on an emergency basis only. This is not a substitute for, or an effort to provide, complete comprehensive medical care. It is not possible to recognize and treat all injuries or illnesses in a single emergency department visit. For this reason it is recommended that you followup with your primary care physician in the next 2-3 days for recheck. If the nose rebleeds please use Afrin nasal spray into each nostril then apply the nasal clamp. If bleeding continues for more than 30 minutes afterwards please return to the ER. Avoid touching the inside of the nose You are welcome to return to the emergency department anytime with new, worsening, or concerning symptoms.
== END 2017-07-12 19:15 | disposition home or self-care (01) ==
LOC: C.EDB 16:15 → C.EDD 19:15
DX: R04.0 Epistaxis (principal); I25.10 Atherosclerotic heart disease of native coronary artery without angina pectoris; E11.9 Type 2 diabetes mellitus without complications; E78.00 Pure hypercholesterolemia, unspecified; I10 Essential (primary) hypertension; N28.9 Disorder of kidney and ureter, unspecified; C61 Malignant neoplasm of prostate; Z79.01 Long term (current) use of anticoagulants; Z79.82 Long term (current) use of aspirin; Z79.4 Long term (current) use of insulin; Z95.1 Presence of aortocoronary bypass graft; Z95.0 Presence of cardiac pacemaker; Z83.3 Family history of diabetes mellitus; Z82.49 Family history of ischemic heart disease and other diseases of the circulatory system

== ENCOUNTER → 2017-08-03 | Outpatient (CLI) | payer OTHER ==
[~2017-08-03] MED LIST changes: +GABA-113 PO; -GABA1CAP4 PO; +INSU50IN SQ; +RANI150T85 PO; -ZNTT/150 PO
--- NOTE | 2017-08-03 16:03 | DIAGNOSTIC IMAGING REPORT ---
HEAD WITHOUT CONTRAST (CT) CT DOSE: 800.40 mGycm HISTORY: Mental status change F09 Cognitive [id number] TECHNIQUE: Multiaxial CT images of the head were performed without the use of intravenous contrast. A dose lowering technique was utilized adhering to the principles of ALARA. Comparison: 05/19/2016 Findings: The paranasal sinuses and mastoid air cells are clear. The calvarium and skull base are intact. The ventricles and sulci are within normal limits. There is no mass, hematoma, midline shift, or acute infarct. Calcified meningioma left frontal region unchanged in size. There is no new or interval process. Impression: Chronic and age-related change. Stable left frontal meningioma. No acute or interval process. The above report was generated using voice recognition software. It may contain grammatical, syntax or spelling errors. Electronically signed by: Raymond Romero M.D. 08/03/2017 4:02 PM Dictated Date/Time: 08/03/2017 4:00 PM
== END | disposition home or self-care (01) ==
LOC: C.CTS 15:36
PROVIDERS: ATTEND Internal Medicine Geriatric Medicine
DX: F09 Unspecified mental disorder due to known physiological condition (principal)

== ENCOUNTER → 2017-08-09 | Outpatient (CLI) | payer OTHER ==
[~2017-08-09] MED LIST changes: +MUPIOIN4 NAE
[2017-08-09 12:41] LABS: HEMATOCRIT 37.3 % (42-52); HEMOGLOBIN 12.1 g/dL (14.0-18.0); MEAN CELL VOLUME 92.1 fL (80-100); MEAN CORPUSCULAR HEMOGLOBIN 29.9 pg (25-34); MEAN CORPUSCULAR HGB CONC 32.4 g/dl (32-36); MEAN PLATELET VOLUME 10.7 fL (7.4-10.4); PLATELET COUNT 167 K/uL (130-400); RED CELL DISTRIBUTION WIDTH CV 14.4 % (11.5-14.5); RED CELL DISTRIBUTION WIDTH SD 48.5 fL (36.4-46.3); WHITE BLOOD COUNT 6.63 K/uL (4.8-10.8)
[2017-08-09 13:04] LABS: HEMOGLOBIN A1C 8.9 % (4.5-5.6)
[2017-08-09 14:32] LABS: ALBUMIN 3.3 gm/dl (3.4-5.0); BLOOD UREA NITROGEN 54 mg/dl (7-18); CALCIUM 9.2 mg/dl (8.5-10.1); CARBON DIOXIDE 30 mmol/L (21-32); CREATININE 3.39 mg/dl (0.60-1.40); GLUCOSE 365 mg/dl (70-99); PHOSPHORUS 4.3 mg/dl (2.5-4.9); POTASSIUM 4.6 mmol/L (3.5-5.1); SODIUM 134 mmol/L (136-145)
== END | disposition home or self-care (01) ==
LOC: C.LABBFT 09:50
PROVIDERS: ATTEND Internal Medicine Geriatric Medicine
DX: I12.9 Hypertensive chronic kidney disease with stage 1 through stage 4 chronic kidney disease, or unspecified chronic kidney disease (principal); D64.9 Anemia, unspecified; N25.81 Secondary hyperparathyroidism of renal origin; R60.9 Edema, unspecified; N18.4 Chronic kidney disease, stage 4 (severe); E55.9 Vitamin D deficiency, unspecified; E03.9 Hypothyroidism, unspecified; I48.2 Chronic atrial fibrillation

== ENCOUNTER 2017-08-13 15:44 | Emergency (ER) | payer OTHER ==
[~2017-08-13] VITALS: Ht 170.2 cm; Wt 113.0 kg
[~2017-08-13 15:44] MED LIST changes: -MUPIOIN4 NAE
[2017-08-13 16:00] VITALS: Ht 170.2 cm; Wt 113.0 kg
--- NOTE | 2017-08-13 16:25 | EMERGENCY ROOM VISIT NOTE ---
History First contact with patient: 16:10 Chief Complaint: NOSE BLEED (MINOR) Stated Complaint: NOSE BLEED History of Present Illness The patient is a 82 year old male who presents to the Emergency Room with complaints of epistaxis that started approximately 1 hour ago. The patient reports it is coming from the left nostril. He was recently started on Xarelto for his "heart." He denies any nausea. he denies any blood in the back of his throat. No chest pain, difficulty breathing or dizziness. Review of Systems 6 system review negative. Please see pertinent positives in the history of present illness section. Past Medical/Surgical History Medical Problems: (1) Coronary artery disease (2) Diabetes mellitus type 2, insulin dependent (3) Hypercholesterolemia (4) Hypertension (5) Kidney disease (6) Pacemaker (7) Prostate cancer (8) UTI (urinary tract infection) Surgical Problems: (1) H/O right knee surgery (2) Hx of CABG Family History Diabetes mellitus FHx: heart disease Hypertension Social History Smoking Status: Former Smoker Alcohol Use: none Drug Use: none Marital Status: Housing Status: lives with family Occupation Status: retired Current/Historical Medications Scheduled Ascorbic Acid (Vitamin C), 1,000 MG PO BID Aspirin (Aspirin Ec), 81 MG PO DAILY Atorvastatin (Lipitor), 80 MG PO HS Calcium Carbonate-Vitamin D (Calcium + D), 600 MG PO QAM Cephalexin Monohydrate (Keflex), 500 MG PO TID Cholecalciferol (Vitamin D3), 1 CAP PO QAM Digoxin (Digoxin), 0.125 MG PO QAM Docusate Sodium (Colace), 1 CAP PO BID Fexofenadine HCl (Aller-Ease Allergy), 1 TAB PO QAM Gabapentin (Neurontin), 300 MG PO QAM Gabapentin (Neurontin), 600 MG PO HS Insulin Lispro Protamine & Lis (Humalog Mix 50/50), 100 UNITS SC QAM Insulin Lispro Protamine & Lis (Humalog Mix 50/50), 85 UNITS SC NOON Insulin Lispro Protamine & Lis (Humalog Mix 50/50), 0 SQ 1730 Levothyroxine Sodium (Levothyroxine Sodium), 112 MCG PO QAM Lisinopril (Lisinopril), 20 MG PO QAM Metoprolol Succinate (Toprol Xl), 200 MG PO QAM Multivitamin (Multivitamin), 1 TAB PO QAM Mupirocin Calcium (Bactroban Nasal), 1 GM CELESTINO BID Nitroglycerin (Nitrostat), 0.4 MG SL PRN Ranitidine (Zantac), 150 MG PO QAM Rivaroxaban (Xarelto), 15 MG PO QAM Vitamin E (E-400), 400 UNITS PO QAM Scheduled PRN Polyethylene Glycol 3350 (Miralax), 17 GM PO DAILY PRN for Constipation Physical Exam Vital Signs Date Time Temp Pulse Resp B/P (MAP) Pulse Ox O2 Delivery O2 Flow Rate FiO2 08/13/17 17:27 36.3 71 18 130/60 95 08/13/17 16:00 36.3 71 18 130/60 95 Room Air Physical Exam VITALS: Vitals are noted on the nurse's note and reviewed by myself. Vital signs stable. GENERAL: 82-year-old male, in no acute distress, SKIN: The skin was without rashes, erythema, edema, or bruising. HEAD: Normocephalic atraumatic. NOSE: Patent, friable area noted in the left anterior septum. No active bleeding. Nares are patent bilaterally. MOUTH: No blood noted in the oropharynx MUSCULOSKELETAL: Strength 5/5 throughout. NEURO: Patient was alert and oriented to person place and time. Normal sensation to touch. No focal neurological deficits. Medical Decision & Procedures Medications Administered Medications (Trade) Dose Ordered Sig/Danial Route Start Time Stop Time Status Last Admin Dose Admin Oxymetazoline HCl (Afrin 0.05% Nasal [place]) 1 sprays NOW ONCE NA 08/13/17 16:30 08/13/17 16:32 DC 08/13/17 16:30 1 SPRAYS ED Course The patient was seen and examined Afrin was applied to the nares bilaterally. A clip was then applied. The patient was observed for 30 minutes. The patient did not have any further bleeding. He was also seen and examined by my supervising physician who is in agreement with my plan Discharge instructions were reviewed, and the patient was discharged in good condition Medical Decision Differential diagnosis: Anterior versus posterior epistaxis, coagulopathy, hypertension This patient is an 82-year-old male that presents to emergency department with bleeding from the left nare. He is on Xarelto. On exam, he had a friable area in the anterior septum. There wasn't however any active bleeding. Afrin nasal clip was applied. He had no further bleeding. The patient was given the Afrin and nasal clip to go. He was also prescribed Bactroban to apply to the nose twice daily. I advised him to run a humidifier in his bedroom at night. He was comfortable with this plan. He will follow-up with his primary care physician, and agrees to return to the emergency department with any uncontrolled bleeding. This chart was completed in part utilizing [employer] Speech Voice Recognition software. Attempts were made to minimize the grammatical errors, random word insertions, pronoun errors and incomplete sentences. Any formal questions or concerns about the content, text or information contained within the body of this dictation should be directly addressed to the provider for clarification. Medication Reconcilliation Current Medication List: was personally reviewed by me Blood Pressure Screening Patient's blood pressure: Normal blood pressure Impression Primary Impression: Epistaxis Departure Information Dispostion Home / Self-Care Condition GOOD Prescriptions Mupirocin Calcium (BACTROBAN NASAL) 2 % Oin 1 GM CELESTINO BID, #1 TUBE Prov: Bobbi Amos PA-C 08/13/17 Referrals Yaniv Prado M.D. (PCP) Patient Instructions ED Epistaxis Ch, My [facility] Additional Instructions You had been evaluated in the emergency department for a nosebleed. This is likely due to your blood thinner. If the bleeding returns, please blow all of the clots out of your nose and immediately apply 2 sprays of Afrin to each nostril followed by the nasal clip. A sit in an upright position for 30 minutes. If this does not control the bleeding, please return to the emergency department. To help prevent further nosebleeds, please apply Bactroban ointments to the nostrils twice daily. Please also running humidifier in the house. Do not hesitate to return to the emergency department with any new or concerning symptoms It was a pleasure participating in your care today
[2017-08-13] MEDS ORDERED: OXYMETAZOLINE HCL 0.05% NA SPR 15 ML BTL ONE (16:30)
--- NOTE | 2017-08-13 17:11 | EMERGENCY ROOM VISIT NOTE ---
ED Visit Note First contact with patient: 17:10 The patient was seen and examined with PA. I agree with the history, physical and findings. Please see the note for disposition and details.
[2017-08-13] MEDS ORDERED: MUPIOIN4 NAE (17:12)
[2017-08-13 17:27] VITALS: BP 130/60; PULSE 71; TEMP 36.3; O2SAT 95
== END 2017-08-13 17:28 | disposition home or self-care (01) ==
LOC: C.EDB 15:45 → C.EDD 17:28
DX: R04.0 Epistaxis (principal); I10 Essential (primary) hypertension; I25.10 Atherosclerotic heart disease of native coronary artery without angina pectoris; E11.9 Type 2 diabetes mellitus without complications; E78.00 Pure hypercholesterolemia, unspecified; Z79.4 Long term (current) use of insulin; Z79.82 Long term (current) use of aspirin; Z95.1 Presence of aortocoronary bypass graft; Z95.0 Presence of cardiac pacemaker; Z85.46 Personal history of malignant neoplasm of prostate; Z87.891 Personal history of nicotine dependence; Z83.3 Family history of diabetes mellitus; Z82.49 Family history of ischemic heart disease and other diseases of the circulatory system

== ENCOUNTER → 2017-10-22 | Outpatient (CLI) | payer OTHER ==
[~2017-10-22] MED LIST changes: -CEPH500C2 PO; +MUPIOIN4 NAE; -TRAM-10 PO
[2017-10-22 17:07] LABS: HEMATOCRIT 36.9 % (42-52); HEMOGLOBIN 12.1 g/dL (14.0-18.0); MEAN CELL VOLUME 93.7 fL (80-100); MEAN CORPUSCULAR HEMOGLOBIN 30.7 pg (25-34); MEAN CORPUSCULAR HGB CONC 32.8 g/dl (32-36); MEAN PLATELET VOLUME 10.8 fL (7.4-10.4); PLATELET COUNT 171 K/uL (130-400); RED CELL DISTRIBUTION WIDTH CV 14.1 % (11.5-14.5); RED CELL DISTRIBUTION WIDTH SD 47.9 fL (36.4-46.3); WHITE BLOOD COUNT 8.07 K/uL (4.8-10.8)
[2017-10-22 17:18] LABS: ALBUMIN 3.4 gm/dl (3.4-5.0); ALT/SGPT 27 U/L (12-78); AST/SGOT 32 U/L (15-37); BLOOD UREA NITROGEN 56 mg/dl (7-18); CARBON DIOXIDE 26 mmol/L (21-32); CREATININE 3.13 mg/dl (0.60-1.40); GLUCOSE 249 mg/dl (70-99); POTASSIUM 3.8 mmol/L (3.5-5.1); SODIUM 134 mmol/L (136-145)
[2017-10-22 17:21] LABS: ALKALINE PHOSPHATASE 134 U/L (45-117)
== END | disposition home or self-care (01) ==
LOC: C.LABBFT 11:54
PROVIDERS: ATTEND Internal Medicine Nephrology
DX: I12.9 Hypertensive chronic kidney disease with stage 1 through stage 4 chronic kidney disease, or unspecified chronic kidney disease (principal); D64.9 Anemia, unspecified; R60.9 Edema, unspecified; N18.4 Chronic kidney disease, stage 4 (severe); I42.9 Cardiomyopathy, unspecified; E55.9 Vitamin D deficiency, unspecified; N17.9 Acute kidney failure, unspecified

== ENCOUNTER → 2018-01-11 | Outpatient (CLI) | payer OTHER ==
[~2018-01-11] MED LIST changes: +FEXO1TAB49 PO; -INSU50IN SC; -INSU50IN SQ; +INSU70IN2 SC; +LISI-726 PO; -LSN20 PO; -MUPIOIN4 NAE; -[UNRECOGNIZED DRUG - CODE] PO
[2018-01-12 06:03] LABS: HEMOGLOBIN A1C 7.2 % (4.5-5.6)
== END | disposition home or self-care (01) ==
LOC: C.LABBFT 14:39
PROVIDERS: ATTEND Physician Assistant
DX: E11.9 Type 2 diabetes mellitus without complications (principal); E03.9 Hypothyroidism, unspecified

== ENCOUNTER 2018-11-08 13:18 | Inpatient (IN) ==
--- NOTE | 2018-11-08 13:53 | XRay Report ---
XR chest 1V portable HISTORY: 83 years-old Male weakness acute weakness COMPARISON: Chest radiograph 10/31/2018 TECHNIQUE: Portable AP view of the chest FINDINGS: Cardiac silhouette is mildly enlarged, unchanged. Prior median sternotomy. Left subclavian pacer/AICD is unchanged. 5 mm calcified granuloma of the lateral right midlung again noted. No pneumothorax, pl eural effusion, focal airspace consolidation or overt pulmonary edema. Degenerative changes of the sh oulders and spine. IMPRESSION: No acute process. The above report was generated using voice recognition software. It may contain grammatical, syntax o r spelling errors. Electronically signed by: Joselo Govea M.D. 11/08/2018 1:51 PM
--- NOTE | 2018-11-08 14:27 | CT Scan Report ---
CT head/brain wo con CLINICAL HISTORY: Confusion CHANGE IN MENTAL STATUS COMPARISON STUDY: 10/31/2018 TECHNIQUE: Axial CT of the brain is performed from the vertex to the skull base. IV contrast was not administered for this examination. A dose lowering technique was utilized adhering to the principles of ALARA. CT DOSE: 614.27 mGy.cm FINDINGS: There is a stable 13 mm hyperdense left frontal dural based lesion likely representing a meningioma. There is no CT evidence of acute cortical infarction. There is no evidence of midline shift. There is no evidence of acute hemorrhage. There are patchy white matter hypodensities likely on a small vessel basis. There is no evidence of pathologic ventricular dilatation. There is no evidence of acute sinusitis IMPRESSION: 1. No acute intracranial findings 2. Stable 13 mm hyperdense left frontal dural based lesion consistent with a meningioma. Electronically signed by: Raoul Roa M.D. 11/08/2018 2:26 PM
[2018-11-08 15:02] LABS: Basophils # (auto) 0.03 K/uL (0-0.2); Basophils % (auto) 0.4 %; Eosinophils # (auto) 0.28 K/uL (0-0.5); Eosinophils % (auto) 3.4 %; Hematocrit (blood only) 32.5 % (42-52); Hemoglobin 10.1 g/dL (14.0-18.0); Immature Granulocytes # (auto) 0.03 K/uL (0.00-0.02); Immature Granulocytes % (auto) 0.4 %; Lymphocytes # (auto) 0.95 K/uL (1.2-3.4); Lymphocytes % (auto) 11.6 %; Mean Corpuscular Hgb Conc 31.1 g/dL (32-36); Mean Corpuscular Volume 89.5 fL (80-100); Mean Platelet Volume 9.3 fL (7.4-10.4); Neutrophils # (auto) 6.01 K/uL (1.4-6.5); Neutrophils % (auto) 73.2 %; Platelet Count 202 K/uL (130-400); RDW Coefficient of Variation 16.6 % (11.5-14.5); RDW Standard Deviation 54.3 fL (36.4-46.3); Red Blood Count 3.63 M/uL (4.7-6.1)
[2018-11-08 15:06] LABS: INR 1.3 (0.9-1.1); Prothrombin Time 13.2 Seconds (9.0-12.0)
[2018-11-08 15:24] LABS: Albumin Globulin Ratio 0.8 (0.9-2); BUN Creatinine Ratio 19.6 (10-20); Bilirubin,Total 0.7 mg/dl (0.2-1); Calcium 9.3 mg/dl (8.5-10.1); Creatinine Clr Calc Pharmacy 13.1 ml/min; Est GFR (African American) 10.6; Est GFR (Non-African American) 9.2; Globulin 3.9 gm/dl (2.5-4.0); Magnesium 2.7 mg/dl (1.8-2.4); Potassium 5.6 mmol/L (3.5-5.1); Total Protein 6.9 gm/dl (6.4-8.2); Troponin I 0.019 ng/ml (0-0.045)
[2018-11-08 16:50] LABS: Appearance Urine Clear (Clear); Bacteria Urine Automated Negative (Negative); Bilirubin Urine Negative (Negative); Blood Urine Negative (Negative); Color Urine Yellow; Glucose Urine UA Negative (Negative); Ketones Urine Negative (Negative); Leukocyte Esterase Urine Negative (Negative); Nitrite Urine Negative (Negative); Protein Urine 1+ (Negative); RBC Urine Automated 0-4 /hpf (0-4); Specific Gravity Urine 1.016 (1.000-1.030); Urobilinogen Urine Negative (Negative); WBC Urine Automated 0 /hpf (0-5)
[2018-11-08] MEDS ORDERED: DAPTOmycin 350 MG in SYRINGE 0 ML IV ONE (17:26)
[2018-11-08] MEDS ORDERED: PIPERACILL/TAZOBAC CONSULT ACTIVE PRN ×2 (17:26→20:03)
[2018-11-08] MEDS ORDERED: PIPERACILLIN/TAZOBACTAM 4.5 GM/120 ML BAG IV ONE (17:26)
--- NOTE | 2018-11-08 18:33 | Emergency Department Note ---
Entered by Mirta Baugh acting as a scribe for Lance Meyer MD ED Provider Note CHIEF COMPLAINT: Altered Mental Status HISTORY OF PRESENT ILLNESS: The patient is an 83 year old male who presents to the Emergency Department with complaints of an altered mental status. The patient was brought to the ED by his because he has been confused and not his normal self. She notes that the confusion has been persistent for several years now but recently it became worse. She stated that last week the patient wandered out of the house in the middle of the night saying he was going to camp. The noted that the patient was at [facility] yesterday to prepare for dialysis. She noted that the patient has skin on his leg that was peeling off, he was cleaned and wrapped but is due for a change and there has been leaking from the bandages. The patient stated that he currently has a slight headache. The notes that the patient has a pacemaker, chronic kidney disease, history of a bypass surgery, diabetes, and is chronically incontinent. Pt denies LOC, fevers, chills, diaphoresis, visual changes, neck pain, chest pain, breathing difficulties, nausea, vomiting, abdominal pain, back pain, melena, hematochezia, numbness, weakness, lymphadenopathy, rash, or other complaints. REVIEW OF SYSTEMS: See HPI for pertinent positives and negatives. A total of ten systems were reviewed and were otherwise negative. PMHx/PSHx: CAD, CABG, Prostate cancer SOCIAL HISTORY: Patient lives at home. PHYSICAL EXAM: GENERAL: Awake, alert, tired appearing. HENT: Normocephalic, atraumatic. Oropharynx unremarkable. EYES: PERRL. Normal conjunctiva. Sclera non-icteric. NECK: Inspection normal. Non-tender. Supple. No nuchal rigidity. FROM. No masses. RESPIRATORY: Clear to auscultation. No wheezes. No rales. Normal respiratory effort. CARDIAC: Normal rate. Normal rhythm. No murmurs. No rubs. Extremities warm and well perfused. Pulses equal. No JVD. GI: Soft, non-distended. No tenderness to palpation. No rebound or guarding. No masses. RECTAL: Deferred. MUSCULOSKELETAL: Atraumatic. Chest examination reveals no tenderness. The back is symmetrical on inspection without obvious abnormality. There is no CVA tenderness to palpation. No joint edema. LOWER EXTREMITIES: Lower extremity edema. The patient has wraps around both legs. NEURO: Oriented to person only. Altered sensorium. SKIN: No rash or jaundice noted. EMERGENCY DEPARTMENT COURSE: 1339: Past medical records reviewed. The patient was evaluated in room B5, and a complete history and physical examination were performed. 1725: I undressed the patient's wounds. He has significant ulcerative wounds on both of his legs, righter greater than left. They are foul-smelling, erythematous, and purulent in appearance. 1731: I discussed the patient's case with Dr. Nalini Chen who will evaluate the patient for further management. 1736: I discussed the patient's case with Dr. Celis-Nephrology. MEDICAL DECISION MAKING: Prior records/ancillary studies reviewed. Nursing notes reviewed and agree them. Additional history obtained from family. The patient's history was concerning for confusion, lower extremity wounds, pending dialysis, weakness. Differential diagnosis: Etiologies such as metabolic, infection, hypo/hyperglycemia, electrolyte abnormalities, cardiac sources, intracerebral event, toxicologic, neurologic, as well as others were entertained. Physical examination: As above. ER treatment provided: IV Lock IV daptomycin IV Zosyn On reassessment the patient felt better. Diagnostics interpretation by me: ECG: No acute ischemic change. No dysrhythmia. The labs revealed no leukocytosis but mild anemia on CBC. Lactate negative. Troponin and TSH were negative. INR was subtherapeutic at 1.3. The patient had a negative urinalysis. Chest x-ray was negative for acute disease. His chemistry panel did reveal a potassium of 5.6 and a creatinine of 5.3. These are slightly worse than prior. Wound cultures done of the lower extremities. Imaging studies: Chest x-ray done and negative. CT scan of the head negative. The patient has significant lower extremity wounds. He was started on antibiotics after cultures. His renal function is worsening. He will need further treatment. Consultation: Consultation was placed with nephrology. They recommended admission and evaluation for dialysis. A consultation was placed with the hospitalist. The case was discussed and diagnostics were reviewed. The patient was evaluated in the ER for further treatment. IMPRESSION: AMS, infected wounds lower extremities, chronic renal failure, hyperkalemia PLAN: Being evaluated by hospitalist The scribe's documentation has been prepared under my direction and personally reviewed by me in its entirety. I confirm that the note above accurately reflects all work, treatment, procedures, and medical decision making performed by me. Impression & Plan Altered mental status, Infected wound, Chronic kidney failure, Hyperkalemia Past Med/Surg History Medical History Actinic keratitis (Acute) Fistula (Acute) Spinal stenosis (Acute) Atrial fibrillation ON RIVAROXABAN (SWITCHED FROM ELIQUIS 2/2 KIDNEY DISEASE) Chronic kidney disease, stage IV (severe) PROPHYLACTIC AVF PLACEMENT FOR POTENTIAL FUTURE DIALYSIS Coronary artery disease S/P CABG X 4 (10+ YEARS AGO) DJD (degenerative joint disease) Diabetes IDDM Diabetes mellitus type 2 in nonobese GERD (gastroesophageal reflux disease) CONTROLLED H/O prostate cancer HTN (hypertension) History of kidney stones History of left bundle branch block (LBBB) PER CARDIO RECORDS Hypercholesteremia Hypothyroid ICD (implantable cardioverter-defibrillator) battery depletion PPM/ICD IMPLANTED 2013; [employer] LAST PACER CHECK 08/01/18 Ischemic cardiomyopathy Obesity Surgical History H/O cardiac pacemaker 2013 H/O four vessel coronary artery bypass graft CABG X 4 (10+ YEARS AGO) H/O total knee replacement RIGHT History of surgical removal of pilonidal cyst Hx of hemorrhoidectomy Social History Preferred Language: Chinese Communication Ability: Effective Visual Impairment: Limited Hearing Ability: Normal Beliefs That Will Affect Care: None marital status: Current Living Situation: Spouse current occupational status: retired Feels Safe at Home: Yes Smoking Status: Former smoker Tobacco Type: cigarettes Second Hand Exposure: No Hx Alcohol Use: Yes Hx Substance Use: No Results & Data Vital Signs Vital Signs - 24 hr 11/08/18 13:28 11/08/18 17:00 11/08/18 18:06 Temperature 36.4 C L Temperature Source Oral Sepsis Recent Fever Within 48 Hours No Sepsis Action Taken by Nursing No Action Required Pulse Rate - Lying 60 Pulse Rate - Sitting 68 Pulse Rate - Standing 63 Pulse Rate 63 60 Pulse Rate [Apical] 60 60 Pulse Rhythm Regular Pulse Rhythm [Apical] Regular Regular Pulse Strength [Apical] Normal Normal Respiratory Rate 18 20 20 Respiratory Effort / Characteristics Non-Labored Spontaneous Non-Labored Respiratory Depth Normal Normal Respiratory Pattern Regular Regular Blood Pressure - Lying 100/54 L Blood Pressure - Sitting 123/59 L Blood Pressure- Standing 108/55 L Blood Pressure 94/51 L Blood Pressure [Right Arm] 100/54 L 114/56 L Blood Pressure Mean 65 Blood Pressure Mean [Right Arm] 69 75 Blood Pressure Position [Right Arm] Lying Lying Pulse Oximetry 96 100 98 Oxygen Delivery Method Room Air Room Air Room Air Home Medications Current Medication List: was personally reviewed by me Laboratory Data Attestation: I reviewed the patient's lab results. Result diagrams: 11/08/18 14:34 11/08/18 14:34 Lab Results 11/08/18 11/08/18 11/08/18 Range/Units 14:34 14:34 14:34 WBC 8.20 (4.8-10.8) K/uL RBC 3.63 L (4.7-6.1) M/uL Hgb 10.1 L (14.0-18.0) g/dL Hct 32.5 L (42-52) % MCV 89.5 (80-100) fL MCH 27.8 (25-34) pg MCHC 31.1 L (32-36) g/dL RDW Std Deviation 54.3 H (36.4-46.3) fL RDW Coeff of Virginie 16.6 H (11.5-14.5) % Plt Count 202 (130-400) K/uL MPV 9.3 (7.4-10.4) fL Immature Gran % (Auto) 0.4 % Neut % (Auto) 73.2 % Lymph % (Auto) 11.6 % White % (Auto) 11.0 % Eos % (Auto) 3.4 % Baso % (Auto) 0.4 % Immature Gran # (Auto) 0.03 H (0.00-0.02) K/uL Neut # (Auto) 6.01 (1.4-6.5) K/uL Lymph # (Auto) 0.95 L (1.2-3.4) K/uL White # (Auto) 0.90 H (0.11-0.59) K/uL Eos # (Auto) 0.28 (0-0.5) K/uL Baso # (Auto) 0.03 (0-0.2) K/uL PT 13.2 H (9.0-12.0) Seconds INR 1.3 H (0.9-1.1) Sodium 138 (136-145) mmol/L Potassium 5.6 H (3.5-5.1) mmol/L Chloride 102 (98-107) mmol/L Carbon Dioxide 28 (21-32) mmol/L Anion Gap 8.0 (3-11) BUN 104 H (7-18) mg/dl Creatinine 5.35 H* (0.6-1.4) mg/dl Est Cr Clr Drug Dosing 13.1 ml/min Est GFR ( Amer) 10.6 Est GFR (Non-Af Amer) 9.2 BUN/Creatinine Ratio 19.6 (10-20) Glucose 122 H (70-99) mg/dl POC Lactic Acid Chi (0.90-1.70) mmol/L Calcium 9.3 (8.5-10.1) mg/dl Magnesium 2.7 H (1.8-2.4) mg/dl Total Bilirubin 0.7 (0.2-1) mg/dl AST 39 H (15-37) U/L ALT 33 (12-78) U/L Alkaline Phosphatase 126 H (45-117) U/L Troponin I 0.019 (0-0.045) ng/ml Total Protein 6.9 (6.4-8.2) gm/dl Albumin 3.0 L (3.4-5.0) gm/dl Globulin 3.9 (2.5-4.0) gm/dl Albumin/Globulin Ratio 0.8 L (0.9-2) TSH 2.700 (0.300-4.500) uIu/ml Urine Color Urine Appearance (Clear) Urine pH (4.5-7.5) Ur Specific [place] (1.000-1.030) Urine Protein (Negative) Urine Glucose (UA) (Negative) Urine Ketones (Negative) Urine Blood (Negative) Urine Nitrite (Negative) Urine Bilirubin (Negative) Urine Urobilinogen (Negative) Ur Leukocyte Esterase (Negative) Urine WBC (Auto) (0-5) /hpf Urine RBC (Auto) (0-4) /hpf U Hyaline Cast (Auto) (0-5) /lpf U Epithel Cells (Auto) (0-5) /lpf Urine Bacteria (Auto) (Negative) 11/08/18 11/08/18 Range/Units 14:50 Unknown WBC (4.8-10.8) K/uL RBC (4.7-6.1) M/uL Hgb (14.0-18.0) g/dL Hct (42-52) % MCV (80-100) fL MCH (25-34) pg MCHC (32-36) g/dL RDW Std Deviation (36.4-46.3) fL RDW Coeff of Virginie (11.5-14.5) % Plt Count (130-400) K/uL MPV (7.4-10.4) fL Immature Gran % (Auto) % Neut % (Auto) % Lymph % (Auto) % White % (Auto) % Eos % (Auto) % Baso % (Auto) % Immature Gran # (Auto) (0.00-0.02) K/uL Neut # (Auto) (1.4-6.5) K/uL Lymph # (Auto) (1.2-3.4) K/uL White # (Auto) (0.11-0.59) K/uL Eos # (Auto) (0-0.5) K/uL Baso # (Auto) (0-0.2) K/uL PT (9.0-12.0) Seconds INR (0.9-1.1) Sodium (136-145) mmol/L Potassium (3.5-5.1) mmol/L Chloride (98-107) mmol/L Carbon Dioxide (21-32) mmol/L Anion Gap (3-11) BUN (7-18) mg/dl Creatinine (0.6-1.4) mg/dl Est Cr Clr Drug Dosing ml/min Est GFR ( Amer) Est GFR (Non-Af Amer) BUN/Creatinine Ratio (10-20) Glucose (70-99) mg/dl POC Lactic Acid Chi 1.18 (0.90-1.70) mmol/L Calcium (8.5-10.1) mg/dl Magnesium (1.8-2.4) mg/dl Total Bilirubin (0.2-1) mg/dl AST (15-37) U/L ALT (12-78) U/L Alkaline Phosphatase (45-117) U/L Troponin I (0-0.045) ng/ml Total Protein (6.4-8.2) gm/dl Albumin (3.4-5.0) gm/dl Globulin (2.5-4.0) gm/dl Albumin/Globulin Ratio (0.9-2) TSH (0.300-4.500) uIu/ml Urine Color Yellow Urine Appearance Clear (Clear) Urine pH 5.0 (4.5-7.5) Ur Specific [place] 1.016 (1.000-1.030) Urine Protein 1+ H (Negative) Urine Glucose (UA) Negative (Negative) Urine Ketones Negative (Negative) Urine Blood Negative (Negative) Urine Nitrite Negative (Negative) Urine Bilirubin Negative (Negative) Urine Urobilinogen Negative (Negative) Ur Leukocyte Esterase Negative (Negative) Urine WBC (Auto) 0 (0-5) /hpf Urine RBC (Auto) 0-4 (0-4) /hpf U Hyaline Cast (Auto) 1-5 (0-5) /lpf U Epithel Cells (Auto) 5-10 H (0-5) /lpf Urine Bacteria (Auto) Negative (Negative) Administered Medications Discontinued Medications Piperacillin Sod/Tazobactam Sod (Zosyn) 4.5 gm in 120 mls @ 240 mls/hr IV NOW ONE Stop: 11/08/18 17:55 Last Admin: 11/08/18 18:22 Dose: 240 mls/hr Documented by: [id number] Daptomycin 350 mg/ Syringe 7 mls @ 3.5 mls/min IV NOW ONE; Protocol Stop: 11/08/18 17:27 Last Admin: 11/08/18 18:22 Dose: 3.5 mls/min Documented by: [id number] Imaging Data Radiologist's Impression: Radiology results as stated below per my review and the radiologist's interpretation: XR chest 1V portable HISTORY: 83 years-old Male weakness acute weakness COMPARISON: Chest radiograph 10/31/2018 TECHNIQUE: Portable AP view of the chest FINDINGS: Cardiac silhouette is mildly enlarged, unchanged. Prior median sternotomy. Left subclavian pacer/AICD is unchanged. 5 mm calcified granuloma of the lateral right midlung again noted. No pneumothorax, pleural effusion, focal airspace consolidation or overt pulmonary edema. Degenerative changes of the shoulders and spine. IMPRESSION: No acute process. The above report was generated using voice recognition software. It may contain grammatical, syntax or spelling errors. Electronically signed by: Joselo Govea M.D. 11/08/2018 1:[address] head/brain wo con CLINICAL HISTORY: Confusion CHANGE IN MENTAL STATUS COMPARISON STUDY: 10/31/2018 TECHNIQUE: Axial CT of the brain is performed from the vertex to the skull base. IV contrast was not administered for this examination. A dose lowering tyler hnique was utilized adhering to the principles of ALARA. CT DOSE: 614.27 mGy.cm FINDINGS: There is a stable 13 mm hyperdense left frontal dural based lesion likely representing a meningioma. There is no CT evidence of acute cortical infarction. There is no evidence of midline shift. There is no evidence of acute hemorrhage. There are patchy white matter hypodensities likely on a small vessel basis. There is no evidence of pathologic ventricular dilatation. There is no evidence of acute sinusitis IMPRESSION: 1. No acute intracranial findings 2. Stable 13 mm hyperdense left frontal dural based lesion consistent with a meningioma. Electronically signed by: Raoul Roa M.D. 11/08/2018 2:26 PM Blood Pressure Blood Pressure Findings: Low blood pressure Blood Pressure Disposition: further management by hospitalist Discharge Plan Visit Data Chief Complaint: Confusion Stated Complaint: LEG WOUNDS, RECTAL PAIN Other Complaint: Leg Injury/Pain ED Provider: Lance Meyer Discharge Problem: Altered mental status, Infected wound, Chronic kidney failure, Hyperkalemia Patient Disposition: Being Evaluated by Hospitalist Forms Stand Alone Forms: [facility] Prescriptions Prescriptions: No Action aspirin [Adult Aspirin Regimen] 81 mg tablet,delayed release (DR/EC) 81 mg PO QAM RF: 0 atorvastatin [Lipitor] 80 mg tablet 80 mg PO QDD RF: 0 docusate sodium [Colace] 100 mg capsule 100 mg PO BIDM RF: 0 gabapentin 300 mg capsule 300 mg PO BIDM RF: 0 metoprolol succinate [Toprol XL] 200 mg tablet extended release 24 hr 200 mg PO QAM RF: 0 multivitamin,[id number]-euoebcki [Complete Multivitamin] tablet 1 tab PO QAM RF: 0 nitroglycerin [Nitrostat] 0.4 mg tablet, sublingual 0.4 mg SL Q5M PRN (Reason: Chest Pain) RF: 0 polyethylene glycol 3350 [Miralax] 17 gram/dose powder 17 gm PO DAILY PRN (Reason: Constipation) RF: 0 ranitidine HCl [Zantac] 150 mg tablet 150 mg PO QAM RF: 0 cephalexin [Keflex] 500 mg capsule 500 mg PO qid Qty: 40 RF: 0 Novolin 70/30 U-100 Insulin 100 unit/mL (70-30) Suspension 90 unit SUBCUT QDD RF: 0 lisinopril 10 mg tablet 10 mg PO QAM RF: 0 ascorbic acid (vitamin C) [Vitamin C] 1,000 mg Tablet 1,000 mg PO QAM RF: 0 Novolin 70/30 U-100 Insulin 100 unit/mL (70-30) Suspension 90 units subcut QDB RF: 0 Novolin 70/30 U-100 Insulin 100 unit/mL (70-30) Suspension 19 unit SUBCUT QDL RF: 0 acetaminophen [Tylenol Extra Strength] 500 mg Tablet 1,000 mg PO TID PRN (Reason: Pain) RF: 0 Calcium 600 + D(3) 600 mg calcium- 200 unit Capsule 1 tab PO QAM RF: 0 cholecalciferol (vitamin D3) [Vitamin D3] 1,000 unit Tablet 1,000 unit PO QAM RF: 0 GenTeal Tears Mild 0.1-0.3 % Drops 1 drp ophthalmic (eye) DAILY PRN (Reason: Dry Eye(S)) RF: 0 bumetanide 1 mg tablet 2 mg PO BIDM RF: 0 levothyroxine 100 mcg Tablet 100 mcg PO DAILYBB RF: 0 Eliquis 2.5 mg Tablet 2.5 mg PO BIDM RF: 0 Referrals Referrals: Lexii Aguilar MD [Primary Care Provider] - Discharge Problem: Altered mental status Qualifiers: Altered mental status type: unspecified Qualified Code(s): R41.82 - Altered mental status, unspecified Chronic kidney failure Qualifiers: Chronic kidney disease stage: unspecified stage Qualified Code(s): N18.9 - Chronic kidney disease, unspecified The scribe's documentation has been prepared under my direction and personally reviewed by me in its entirety. I confirm that the note above accurately reflects all work, treatment, procedures, and medical decision making performed by me.
[2018-11-08] MEDS ORDERED: ARTIFICIAL TEARS OP PRN (20:03)
[2018-11-08] MEDS ORDERED: DOCUSATE SODIUM 100 MG CAP PO PRN (20:03)
[2018-11-08] MEDS ORDERED: GLUCOSE 10 TABS/TUBE PO PRN (20:03)
[2018-11-08] MEDS ORDERED: GLUCAGON FOR INJ 1 MG VIAL SQ PRN (20:03)
[2018-11-08] MEDS ORDERED: DEXTROSE 50% 50 ML SYRINGE IV PRN (20:03)
[2018-11-08] MEDS ORDERED: GLUCOSE 40% GEL 15 GM TUBE PO PRN (20:03)
[2018-11-08] MEDS ORDERED: ACETAMINOPHEN 500 MG TAB PO PRN (20:03)
[2018-11-08] MEDS ORDERED: ONDANSETRON INJ 2 MG/ML 2 ML VIAL IV PRN (20:03)
[2018-11-08] MEDS ORDERED: POLYETHYLENE (MIRALAX) 17 GM PACK PO PRN (20:03)
[2018-11-08] MEDS: INSULIN ASPART 100 UNITS/ML 3 ML PEN SC SCH (21:30)
--- NOTE | 2018-11-08 22:55 | History & Physical Report ---
Date of Service November 08, 2018 Assessment & Plan (1) Altered mental status: Somnolence, confusion. Ddx to include worsening renal function, possible infection. CT head negative -Admit to medical floor -Delirium prevention strategies Present on Admission?: Yes (2) Chronic kidney failure: Worsening renal function, ?uremia contributing to AMS -Nephrology consultation --Avoid nephrotoxic agents. Renal dosing where appropriate Present on Admission?: Yes (3) Infected wound: Bilateral LE wounds, dressing placed in ER -Daptomycin and Zosyn administered -Continue Zosyn with renal dosing -Daptomycin to be given q 48 hours d/t renal compromise -Wound care Present on Admission?: Yes (4) Left arm swelling: s/p fistula placement with subsequent fistulogram and revision at [facility] -Obtain records. -Neurovascular checks q shift Present on Admission?: Yes (5) Ischemic dilated cardiomyopathy: Patient appears euvolemic -Continue home medications (6) Hypertension: Stable, chronic -Continue home medications Present on Admission?: Yes (7) Hypercholesterolemia: Chronic, stable -Continue Lipitor (8) Diabetes mellitus type 2, insulin dependent: Lantus ISS (9) Coronary artery disease: Stable. Chronic. No CP -Continue Metoprolol, Lisinopril, ASA (10) Atrial fibrillation: Hold Eliquis for now for possible line placement, temporary HD cath, in AM Continue Metoprolol (11) Hemorrhoid: Preparation H (12) GERD (gastroesophageal reflux disease): Continue ranitidine (13) Hypothyroid: Continue Synthroid History of Present Illness Chief Complaint: AMS Primary Care Provider: Lexii Aguilar MD Mr. Holder is an 83yo C male with multiple medical problems to include CAD, HTN, HLP, DM, AF on anticoagulation with Eliquis, CKD, ICM and GERD. Patient presents to [facility] today with altered mental status, somnolence and confusion. History provided by patient as well as family at bedside. Report increased confusion for the last day. Patient also complaining of perirectal pain and hemorrhoids. Patient with chronic wounds on bilateral LE. He follows routinely at wound clinic and has been on Keflex but has had worsening of weeping wounds, foul smelling discharge. Patient with CKD nearing dialysis dependence. He had LUE AV fistula placed by Dr. Acosta in August 2018 with subsequent edema of the LUE. A fistulogram was performed on 10/07/18 with no stenosis noted and patent anastamosis. Patient had subsequent revision of the fistula at [facility] by Dr. Ly (stated that he suspects fistula will be mature and ready for use in 3-4 weeks per family). He is expected to start HD soon. Patient offers no complaints at this time. No fevers, chills, nausea, vomiting, diarrhea or constipation. He reports that he still makes an adequate amount of urine ER Course: Daptomycin, Zosyn Allergies Allergy/AdvReac Type Severity Reaction Status Date / Time No Known Allergies Allergy Verified 11/08/18 16:00 Home Medications Home Medications Medication Instructions Recorded Confirmed Type aspirin 81 mg tablet,delayed 81 mg PO QAM 06/09/18 11/08/18 History release atorvastatin 80 mg tablet 80 mg PO QDD 06/09/18 11/08/18 History docusate sodium 100 mg capsule 100 mg PO BIDM 06/09/18 11/08/18 History gabapentin 300 mg capsule 300 mg PO BIDM cap 06/09/18 11/08/18 History metoprolol succinate ER 200 mg 200 mg PO QAM 06/09/18 11/08/18 History tablet,extended release 24 hr multivitamin,[id number] 1 tab PO QAM 06/09/18 11/08/18 History tablet nitroglycerin 0.4 mg sublingual 0.4 mg SL Q5M PRN 06/09/18 11/08/18 History tablet polyethylene glycol 3350 17 17 gm PO DAILY PRN gm 06/09/18 11/08/18 History gram/dose oral powder ranitidine 150 mg tablet 150 mg PO QAM 06/09/18 11/08/18 History Calcium 600 + D(3) 1 tab PO QAM 06/16/18 11/08/18 History GenTeal Tears Mild 1 drp OPHTHALMIC (EYE) DAILY PRN 06/16/18 11/08/18 History Novolin 70/30 U-100 Insulin 19 unit SUBCUT QDL 06/16/18 11/08/18 History Novolin 70/30 U-100 Insulin 90 units SUBCUT QDB 06/16/18 11/08/18 History acetaminophen [Tylenol Extra 1,000 mg PO TID PRN 06/16/18 11/08/18 History Strength] ascorbic acid (vitamin C) [Vitamin 1,000 mg PO QAM 06/16/18 11/08/18 History C] cholecalciferol (vitamin D3) 1,000 unit PO QAM 06/16/18 11/08/18 History [Vitamin D3] lisinopril 10 mg PO QAM 06/16/18 11/08/18 History Eliquis 2.5 mg PO BIDM 09/16/18 11/08/18 History levothyroxine 100 mcg PO DAILYBB 09/16/18 11/08/18 History bumetanide 1 mg tablet 2 mg PO BIDM tab 10/04/18 11/08/18 History cephalexin 500 mg capsule 500 mg PO qid #40 cap 11/04/18 11/08/18 Rx insulin NPH and regular human 90 unit SUBCUT QDD 11/08/18 11/08/18 History [Novolin 70/30 U-100 Insulin] Past Med/Surg History Medical History Actinic keratitis (Acute) Fistula (Acute) Spinal stenosis (Acute) Atrial fibrillation ON RIVAROXABAN (SWITCHED FROM ELIQUIS 2/2 KIDNEY DISEASE) Chronic kidney disease, stage IV (severe) PROPHYLACTIC AVF PLACEMENT FOR POTENTIAL FUTURE DIALYSIS Coronary artery disease S/P CABG X 4 (10+ YEARS AGO) DJD (degenerative joint disease) Diabetes IDDM Diabetes mellitus type 2 in nonobese GERD (gastroesophageal reflux disease) CONTROLLED H/O prostate cancer HTN (hypertension) History of kidney stones History of left bundle branch block (LBBB) PER CARDIO RECORDS Hypercholesteremia Hypothyroid ICD (implantable cardioverter-defibrillator) battery depletion PPM/ICD IMPLANTED 2013; [employer] LAST PACER CHECK 08/01/18 Ischemic cardiomyopathy Obesity Surgical History H/O cardiac pacemaker 2013 H/O four vessel coronary artery bypass graft CABG X 4 (10+ YEARS AGO) H/O total knee replacement RIGHT History of surgical removal of pilonidal cyst Hx of hemorrhoidectomy Social History Preferred Language: Mongolian Communication Ability: Effective Visual Impairment: Limited Hearing Ability: Normal Rotary [employer] Operator Required: Yes Beliefs That Will Affect Care: None marital status: Current Living Situation: Spouse current occupational status: retired Other Information That Helps Us Care for You: No Feels Safe at Home: Yes Safety Concerns: Feels Safe At This Time Smoking Status: Never smoker Tobacco Type: cigarettes Second Hand Exposure: No Hx Alcohol Use: No Hx Substance Use: No Review of Systems Review of Systems: All systems reviewed & are unremarkable except as noted in HPI & below Difficult to obtain accurate ROS due to patient somnolence Physical Exam Physical Exam: General: patient somnolent but arousable, answers questions appropriately and follows commands, chronically ill in appearance, oriented x 4 Skin: warm, dry, wounds of bilateral LEs with fresh dressings in place, no foul smell appreciated HEENT: NC/AT, PERRL, EOMI, anicteric sclera, conjunctiva without injection, external ear normal to inspection and nontender, nares patent, moist mucus membranes, dentition intact, no oropharyngeal lesions, neck supple, trachea midline, no LAD, no thyromegaly, no JVD Heart: +S1/S2, regular, no m/r/g, AICD in place Lungs: equal air entry bilaterally, no rales/rhonchi/wheezes Abd: +BS, soft, NT/ND, no masses/organomegaly/ascites, +External hemorrhoids, brown stool, no tenderness Ext: LUE slightly cooler than right, pink with adequate capillary refill, 2+ pulses in UE/LE bilaterally, no clubbing/cyanosis or edema, Neuro: nonfocal, patient AA&O x 4, speech intact, no facial droop, moving all extremities on command with equal strength 5/5 Results & Data Vital Signs (Past 12 Hours) Vital Signs Temp Pulse Pulse Pulse Resp BP BP 11/08/18 20:00 36.4 C L 64 18 129/77 11/08/18 19:32 60 16 120/64 11/08/18 19:30 60 16 11/08/18 19:00 61 21 105/59 L 11/08/18 18:30 60 14 118/53 L 11/08/18 18:06 60 60 20 114/56 L 11/08/18 18:00 60 17 114/56 L 11/08/18 17:30 60 15 111/56 L 11/08/18 17:02 66 20 108/55 L 11/08/18 17:01 63 22 11/08/18 17:00 60 20 100/54 L 11/08/18 16:59 66 22 123/59 L 11/08/18 16:58 60 27 H 100/54 L 11/08/18 16:30 60 16 11/08/18 16:00 60 18 11/08/18 15:30 65 17 11/08/18 15:00 60 22 11/08/18 14:43 60 15 11/08/18 13:28 36.4 C L 63 18 94/51 L Pulse Ox 11/08/18 20:00 100 11/08/18 19:32 100 11/08/18 19:30 95 11/08/18 19:00 89 L 11/08/18 18:30 100 11/08/18 18:06 98 11/08/18 18:00 100 11/08/18 17:30 100 11/08/18 17:02 11/08/18 17:01 11/08/18 17:00 100 11/08/18 16:59 11/08/18 16:58 11/08/18 16:30 100 11/08/18 16:00 97 11/08/18 15:30 100 11/08/18 15:00 11/08/18 14:43 11/08/18 13:28 96 Laboratory Results Lab Results 11/08/18 11/08/18 11/08/18 Range/Units 14:34 14:34 14:34 WBC 8.20 (4.8-10.8) K/uL RBC 3.63 L (4.7-6.1) M/uL Hgb 10.1 L (14.0-18.0) g/dL Hct 32.5 L (42-52) % MCV 89.5 (80-100) fL MCH 27.8 (25-34) pg MCHC 31.1 L (32-36) g/dL RDW Std Deviation 54.3 H (36.4-46.3) fL RDW Coeff of Virginie 16.6 H (11.5-14.5) % Plt Count 202 (130-400) K/uL MPV 9.3 (7.4-10.4) fL Immature Gran % (Auto) 0.4 % Neut % (Auto) 73.2 % Lymph % (Auto) 11.6 % Alfalfa % (Auto) 11.0 % Eos % (Auto) 3.4 % Baso % (Auto) 0.4 % Immature Gran # (Auto) 0.03 H (0.00-0.02) K/uL Neut # (Auto) 6.01 (1.4-6.5) K/uL Lymph # (Auto) 0.95 L (1.2-3.4) K/uL Alfalfa # (Auto) 0.90 H (0.11-0.59) K/uL Eos # (Auto) 0.28 (0-0.5) K/uL Baso # (Auto) 0.03 (0-0.2) K/uL PT 13.2 H (9.0-12.0) Seconds INR 1.3 H (0.9-1.1) Sodium 138 (136-145) mmol/L Potassium 5.6 H (3.5-5.1) mmol/L Chloride 102 (98-107) mmol/L Carbon Dioxide 28 (21-32) mmol/L Anion Gap 8.0 (3-11) BUN 104 H (7-18) mg/dl Creatinine 5.35 H* (0.6-1.4) mg/dl Est Cr Clr Drug Dosing 13.1 ml/min Est GFR ( Amer) 10.6 Est GFR (Non-Af Amer) 9.2 BUN/Creatinine Ratio 19.6 (10-20) Glucose 122 H (70-99) mg/dl POC Glucose (70-99) POC Lactic Acid Chi (0.90-1.70) mmol/L Calcium 9.3 (8.5-10.1) mg/dl Phosphorus (2.5-4.9) mg/dl Magnesium 2.7 H (1.8-2.4) mg/dl Total Bilirubin 0.7 (0.2-1) mg/dl AST 39 H (15-37) U/L ALT 33 (12-78) U/L Alkaline Phosphatase 126 H (45-117) U/L Troponin I 0.019 (0-0.045) ng/ml Total Protein 6.9 (6.4-8.2) gm/dl Albumin 3.0 L (3.4-5.0) gm/dl Globulin 3.9 (2.5-4.0) gm/dl Albumin/Globulin Ratio 0.8 L (0.9-2) TSH 2.700 (0.300-4.500) uIu/ml Urine Color Urine Appearance (Clear) Urine pH (4.5-7.5) Ur Specific [place] (1.000-1.030) Urine Protein (Negative) Urine Glucose (UA) (Negative) Urine Ketones (Negative) Urine Blood (Negative) Urine Nitrite (Negative) Urine Bilirubin (Negative) Urine Urobilinogen (Negative) Ur Leukocyte Esterase (Negative) Urine WBC (Auto) (0-5) /hpf Urine RBC (Auto) (0-4) /hpf U Hyaline Cast (Auto) (0-5) /lpf U Epithel Cells (Auto) (0-5) /lpf Urine Bacteria (Auto) (Negative) 11/08/18 11/08/18 11/08/18 Range/Units 14:34 14:50 20:13 WBC (4.8-10.8) K/uL RBC (4.7-6.1) M/uL Hgb (14.0-18.0) g/dL Hct (42-52) % MCV (80-100) fL MCH (25-34) pg MCHC (32-36) g/dL RDW Std Deviation (36.4-46.3) fL RDW Coeff of Virginie (11.5-14.5) % Plt Count (130-400) K/uL MPV (7.4-10.4) fL Immature Gran % (Auto) % Neut % (Auto) % Lymph % (Auto) % Alfalfa % (Auto) % Eos % (Auto) % Baso % (Auto) % Immature Gran # (Auto) (0.00-0.02) K/uL Neut # (Auto) (1.4-6.5) K/uL Lymph # (Auto) (1.2-3.4) K/uL Alfalfa # (Auto) (0.11-0.59) K/uL Eos # (Auto) (0-0.5) K/uL Baso # (Auto) (0-0.2) K/uL PT (9.0-12.0) Seconds INR (0.9-1.1) Sodium (136-145) mmol/L Potassium (3.5-5.1) mmol/L Chloride (98-107) mmol/L Carbon Dioxide (21-32) mmol/L Anion Gap (3-11) BUN (7-18) mg/dl Creatinine (0.6-1.4) mg/dl Est Cr Clr Drug Dosing ml/min Est GFR ( Amer) Est GFR (Non-Af Amer) BUN/Creatinine Ratio (10-20) Glucose (70-99) mg/dl POC Glucose 84 (70-99) POC Lactic Acid Chi 1.18 (0.90-1.70) mmol/L Calcium (8.5-10.1) mg/dl Phosphorus 4.5 (2.5-4.9) mg/dl Magnesium (1.8-2.4) mg/dl Total Bilirubin (0.2-1) mg/dl AST (15-37) U/L ALT (12-78) U/L Alkaline Phosphatase (45-117) U/L Troponin I (0-0.045) ng/ml Total Protein (6.4-8.2) gm/dl Albumin (3.4-5.0) gm/dl Globulin (2.5-4.0) gm/dl Albumin/Globulin Ratio (0.9-2) TSH (0.300-4.500) uIu/ml Urine Color Urine Appearance (Clear) Urine pH (4.5-7.5) Ur Specific [place] (1.000-1.030) Urine Protein (Negative) Urine Glucose (UA) (Negative) Urine Ketones (Negative) Urine Blood (Negative) Urine Nitrite (Negative) Urine Bilirubin (Negative) Urine Urobilinogen (Negative) Ur Leukocyte Esterase (Negative) Urine WBC (Auto) (0-5) /hpf Urine RBC (Auto) (0-4) /hpf U Hyaline Cast (Auto) (0-5) /lpf U Epithel Cells (Auto) (0-5) /lpf Urine Bacteria (Auto) (Negative) 11/08/18 Range/Units Unknown WBC (4.8-10.8) K/uL RBC (4.7-6.1) M/uL Hgb (14.0-18.0) g/dL Hct (42-52) % MCV (80-100) fL MCH (25-34) pg MCHC (32-36) g/dL RDW Std Deviation (36.4-46.3) fL RDW Coeff of Virginie (11.5-14.5) % Plt Count (130-400) K/uL MPV (7.4-10.4) fL Immature Gran % (Auto) % Neut % (Auto) % Lymph % (Auto) % Alfalfa % (Auto) % Eos % (Auto) % Baso % (Auto) % Immature Gran # (Auto) (0.00-0.02) K/uL Neut # (Auto) (1.4-6.5) K/uL Lymph # (Auto) (1.2-3.4) K/uL Alfalfa # (Auto) (0.11-0.59) K/uL Eos # (Auto) (0-0.5) K/uL Baso # (Auto) (0-0.2) K/uL PT (9.0-12.0) Seconds INR (0.9-1.1) Sodium (136-145) mmol/L Potassium (3.5-5.1) mmol/L Chloride (98-107) mmol/L Carbon Dioxide (21-32) mmol/L Anion Gap (3-11) BUN (7-18) mg/dl Creatinine (0.6-1.4) mg/dl Est Cr Clr Drug Dosing ml/min Est GFR ( Amer) Est GFR (Non-Af Amer) BUN/Creatinine Ratio (10-20) Glucose (70-99) mg/dl POC Glucose (70-99) POC Lactic Acid Chi (0.90-1.70) mmol/L Calcium (8.5-10.1) mg/dl Phosphorus (2.5-4.9) mg/dl Magnesium (1.8-2.4) mg/dl Total Bilirubin (0.2-1) mg/dl AST (15-37) U/L ALT (12-78) U/L Alkaline Phosphatase (45-117) U/L Troponin I (0-0.045) ng/ml Total Protein (6.4-8.2) gm/dl Albumin (3.4-5.0) gm/dl Globulin (2.5-4.0) gm/dl Albumin/Globulin Ratio (0.9-2) TSH (0.300-4.500) uIu/ml Urine Color Yellow Urine Appearance Clear (Clear) Urine pH 5.0 (4.5-7.5) Ur Specific [place] 1.016 (1.000-1.030) Urine Protein 1+ H (Negative) Urine Glucose (UA) Negative (Negative) Urine Ketones Negative (Negative) Urine Blood Negative (Negative) Urine Nitrite Negative (Negative) Urine Bilirubin Negative (Negative) Urine Urobilinogen Negative (Negative) Ur Leukocyte Esterase Negative (Negative) Urine WBC (Auto) 0 (0-5) /hpf Urine RBC (Auto) 0-4 (0-4) /hpf U Hyaline Cast (Auto) 1-5 (0-5) /lpf U Epithel Cells (Auto) 5-10 H (0-5) /lpf Urine Bacteria (Auto) Negative (Negative) Diagnostic Findings CT head/brain wo con CLINICAL HISTORY: Confusion CHANGE IN MENTAL STATUS COMPARISON STUDY: 10/31/2018 TECHNIQUE: Axial CT of the brain is performed from the vertex to the skull base. IV contrast was not administered for this examination. A dose lowering technique was utilized adhering to the principles of ALARA. CT DOSE: 614.27 mGy.cm FINDINGS: There is a stable 13 mm hyperdense left frontal dural based lesion likely representing a meningioma. There is no CT evidence of acute cortical infarction. There is no evidence of midline shift. There is no evidence of acute hemorrhage. There are patchy white matter hypodensities likely on a small vessel basis. There is no evidence of pathologic ventricular dilatation. There is no evidence of acute sinusitis IMPRESSION: 1. No acute intracranial findings 2. Stable 13 mm hyperdense left frontal dural based lesion consistent with a meningioma. Electronically signed by: Raoul Roa M.D. 11/08/2018 2:26 PM Dictated: 11/08/18 1424 Transcribed: 11/08/18 1424 XR chest 1V portable HISTORY: 83 years-old Male weakness acute weakness COMPARISON: Chest radiograph 10/31/2018 TECHNIQUE: Portable AP view of the chest FINDINGS: Cardiac silhouette is mildly enlarged, unchanged. Prior median sternotomy. Left subclavian pacer/AICD is unchanged. 5 mm calcified granuloma of the lateral right midlung again noted. No pneumothorax, pleural effusion, focal airspace consolidation or overt pulmonary edema. Degenerative changes of the shoulders and spine. IMPRESSION: No acute process. The above report was generated using voice recognition software. It may contain grammatical, syntax or spelling errors. Electronically signed by: Joselo Govea M.D. 11/08/2018 1:51 PM Dictated: 11/08/18 1349 Transcribed: 11/08/18 1349 ECG Additional Comments: V-paced, no ischemia Code Status & VTE Plan Code Status full VTE Prophylaxis Plan VTE Prophylaxis will be ordered: Yes Critical Care Time Critical Care Time: No (1) Chronic kidney failure Chronic kidney disease stage: unspecified stage Qualified Code(s): N18.9 - Chronic kidney disease, unspecified (2) Altered mental status Altered mental status type: unspecified Qualified Code(s): R41.82 - Altered mental status, unspecified
[2018-11-08] MEDS ORDERED: ANUSOL SUPP 1 EA PR PRN (23:22)
[2018-11-09] MEDS ORDERED: PIPERACILLIN/TAZOBACTAM 3.375 GM in DEXTROSE 5% 100 ML IV SCH (02:00)
[2018-11-09] MEDS: LEVOTHYROXINE SODIUM 100 MCG TABLET PO SCH (05:48)
[2018-11-09 06:12] LABS: Estimated Average Glucose 177 mg/dl; Hemoglobin A1C 7.8 % (4.5-5.6)
[2018-11-09] MEDS: CARBOHYDRATES FOR HYPOGLYCEMIA PO PRN ×2 (07:30→07:45)
[2018-11-09 07:47] LABS: Basophils # (auto) 0.03 K/uL (0-0.2); Basophils % (auto) 0.4 %; Eosinophils # (auto) 0.29 K/uL (0-0.5); Eosinophils % (auto) 3.7 %; Hematocrit (blood only) 31.4 % (42-52); Hemoglobin 9.8 g/dL (14.0-18.0); Immature Granulocytes # (auto) 0.02 K/uL (0.00-0.02); Immature Granulocytes % (auto) 0.3 %; Lymphocytes # (auto) 0.93 K/uL (1.2-3.4); Lymphocytes % (auto) 11.7 %; Mean Corpuscular Hgb Conc 31.2 g/dL (32-36); Mean Platelet Volume 9.8 fL (7.4-10.4); Monocytes # (auto) 0.85 K/uL (0.11-0.59); Monocytes % (auto) 10.7 %; Neutrophils # (auto) 5.82 K/uL (1.4-6.5); Neutrophils % (auto) 73.2 %; Platelet Count 203 K/uL (130-400); RDW Coefficient of Variation 16.8 % (11.5-14.5); RDW Standard Deviation 54.6 fL (36.4-46.3); Red Blood Count 3.53 M/uL (4.7-6.1); White Blood Count 7.94 K/uL (4.8-10.8)
[2018-11-09] MEDS: ASPIRIN 81 MG ECTAB PO SCH (08:15)
[2018-11-09] MEDS: INSULIN ASPART 100 UNITS/ML 3 ML PEN SC SCH ×4 (08:15→20:53)
[2018-11-09] MEDS: METOPROLOL SUCC 50MG EXT REL TAB PO SCH (08:15)
[2018-11-09] MEDS: DOCUSATE SODIUM 100 MG CAP PO SCH ×2 (08:16→16:02)
[2018-11-09] MEDS: CALCIUM 600MG + VIT D 400 IU TAB PO SCH (08:16)
[2018-11-09] MEDS: BUMETANIDE 1 MG TAB PO SCH ×2 (08:16→16:02)
[2018-11-09 08:37] LABS: BUN Creatinine Ratio 19.4 (10-20); Calcium 8.8 mg/dl (8.5-10.1); Creatinine Clr Calc Pharmacy 13.1 ml/min; Est GFR (African American) 10.9; Est GFR (Non-African American) 9.4
[2018-11-09] MEDS ORDERED: LISINOPRIL 10 MG TAB PO SCH (09:00)
--- NOTE | 2018-11-09 10:08 | Nephrology Consultation ---
Date of Consultation November 09, 2018 Assessment & Plan (1) TASHA (acute kidney injury): 83 y o Male with baseline stage 5 CKD, getting close to needing dialysis, baseline creatinine 4.0-4.5. 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 Admitted to the hospital with change in mental status and found to have acute kidney injury and hyperkalemia. Received IV normal saline which currently stopped. Hyperkalemia resolved and kidney function staying relatively stable. Has chronic bilateral lower extremity venous insufficiency ulcer currently wrapped in dressing and started on Zosyn and daptomycin empirically. Blood pressure well control, volume status acceptable, non-oliguric. Change in mental status could be due to underlying chronic infection, advanced CKD and acute kidney injury. --no acute indication for dialysis at this time as electrolyte abnormality resolved and renal function staying relatively stable, volume status acceptable --monitor renal function closely while fistula resting and wait for swelling to improve --dose medications for GFR <10 --check PTH, phos, iron panel Will follow Thank you for allowing me to participate in your patient's care. It was a pleasure to see Lance (2) Stage 5 chronic kidney disease: (3) Hyperkalemia: (4) Acute confusion: (5) Left arm swelling: (6) Secondary hyperparathyroidism of renal origin: (7) Anemia: History of Present Illness Reason for Consultation: Tasha, hyperkalemia with history of advanced CKD. Attending Physician: Adali Arrington MD History of Present Illness Lance Holder is a 83-year-old male past medical history significant for stage IV CKD hypertension, diabetes, CAD s/p CABG CHF, history of prostate cancer admitted to the hospital with change in mental status contacted kidney injury and hyperkalemia and bilateral lower extremity chronic wound. Nephrology consult was requested to manage acute kidney injury and hyperkalemia and assess for need for urgent dialysis. Lance has stage V CKD with baseline creatinine has been around 4-4.5 has proteinuria 1 g per 24 urine. Chronic kidney disease most likely secondary to diabetic nephropathy and microvascular and had left brachiocephalic AV fistula placed in August 2018, now mature and ready to be used soon. However he has been having left upper extremity swelling and had a fistulogram on 09/27/2018 showing good blood flow without any stenosis. Was seen by vascular surgery on 10/26/2018 for possible fistulogram as left upper extremity swelling has been worsening since last fistulogram. Was brought to the emergency room yesterday by family with change in mental status over last 3 days. There was also report of increased somnolence over last few weeks. The patient was found to have acute kidney injury creatinine was 5.4 with hyper[address]. On admission CT head was unremarkable. Chest x-ray was unremarkable. Has chronic bilateral lower extremity venous insufficiency ulcer, follows with wound center, currently wrapped in dressing and started on Zosyn and daptomycin empirically. He was on IV normal saline since admission which is currently stopped. Blood pressure stable. Currently he denies any symptoms but still seem to be somewhat confused. Has been having decent urine output. Allergies Allergy/AdvReac Type Severity Reaction Status Date / Time No Known Allergies Allergy Verified 11/08/18 16:00 Home Medications Home Medications Medication Instructions Recorded Confirmed Type aspirin 81 mg tablet,delayed 81 mg PO QAM 06/09/18 11/08/18 History release atorvastatin 80 mg tablet 80 mg PO QDD 06/09/18 11/08/18 History docusate sodium 100 mg capsule 100 mg PO BIDM 06/09/18 11/08/18 History gabapentin 300 mg capsule 300 mg PO BIDM cap 06/09/18 11/08/18 History metoprolol succinate ER 200 mg 200 mg PO QAM 06/09/18 11/08/18 History tablet,extended release 24 hr multivitamin,[id number] 1 tab PO QAM 06/09/18 11/08/18 History tablet nitroglycerin 0.4 mg sublingual 0.4 mg SL Q5M PRN 06/09/18 11/08/18 History tablet polyethylene glycol 3350 17 17 gm PO DAILY PRN gm 06/09/18 11/08/18 History gram/dose oral powder ranitidine 150 mg tablet 150 mg PO QAM 06/09/18 11/08/18 History Calcium 600 + D(3) 1 tab PO QAM 06/16/18 11/08/18 History GenTeal Tears Mild 1 drp OPHTHALMIC (EYE) DAILY PRN 06/16/18 11/08/18 History Novolin 70/30 U-100 Insulin 19 unit SUBCUT QDL 06/16/18 11/08/18 History Novolin 70/30 U-100 Insulin 90 units SUBCUT QDB 06/16/18 11/08/18 History acetaminophen [Tylenol Extra 1,000 mg PO TID PRN 06/16/18 11/08/18 History Strength] ascorbic acid (vitamin C) [Vitamin 1,000 mg PO QAM 06/16/18 11/08/18 History C] cholecalciferol (vitamin D3) 1,000 unit PO QAM 06/16/18 11/08/18 History [Vitamin D3] lisinopril 10 mg PO QAM 06/16/18 11/08/18 History Eliquis 2.5 mg PO BIDM 09/16/18 11/08/18 History levothyroxine 100 mcg PO DAILYBB 09/16/18 11/08/18 History bumetanide 1 mg tablet 2 mg PO BIDM tab 10/04/18 11/08/18 History cephalexin 500 mg capsule 500 mg PO qid #40 cap 11/04/18 11/08/18 Rx insulin NPH and regular human 90 unit SUBCUT QDD 11/08/18 11/08/18 History [Novolin 70/30 U-100 Insulin] Patient History Medical History Actinic keratitis (Acute) Fistula (Acute) Spinal stenosis (Acute) Atrial fibrillation ON RIVAROXABAN (SWITCHED FROM ELIQUIS 2/2 KIDNEY DISEASE) Chronic kidney disease, stage IV (severe) PROPHYLACTIC AVF PLACEMENT FOR POTENTIAL FUTURE DIALYSIS Coronary artery disease S/P CABG X 4 (10+ YEARS AGO) DJD (degenerative joint disease) Diabetes IDDM Diabetes mellitus type 2 in nonobese GERD (gastroesophageal reflux disease) CONTROLLED H/O prostate cancer HTN (hypertension) History of kidney stones History of left bundle branch block (LBBB) PER CARDIO RECORDS Hypercholesteremia Hypothyroid ICD (implantable cardioverter-defibrillator) battery depletion PPM/ICD IMPLANTED 2013; [employer] LAST PACER CHECK 08/01/18 Ischemic cardiomyopathy Obesity Surgical History H/O cardiac pacemaker 2013 H/O four vessel coronary artery bypass graft CABG X 4 (10+ YEARS AGO) H/O total knee replacement RIGHT History of surgical removal of pilonidal cyst Hx of hemorrhoidectomy Social History Preferred Language: Vietnamese Communication Ability: Effective Visual Impairment: Limited Hearing Ability: Normal Music Engineer Required: Yes Beliefs That Will Affect Care: None marital status: Current Living Situation: Spouse current occupational status: retired Other Information That Helps Us Care for You: No Feels Safe at Home: Yes Safety Concerns: Feels Safe At This Time Smoking Status: Never smoker Tobacco Type: cigarettes Second Hand Exposure: No Hx Alcohol Use: No Hx Substance Use: No Physical Exam Physical Exam: GENERAL: elderly male, Awake, alert, not in any distress. HEENT: Atraumatic, normocephalic. NECK: Supple, no JVD, no carotid bruit appreciated. ENT: No sinus tenderness MOUTH and THROAT: Moist oral mucosa, RESPIRATORY: Normal breathing efforts, clear to auscultation bilaterally, no wheezes or rales. CARDIOVASCULAR: S1, S2 normal, rate rhythm regular. ABDOMEN: Soft, nontender, positive bowel sound. MUSCULOSKELETAL: No CVA tenderness. No joint swelling, erythema or tenderness. Normal range of motion. SKIN: No skin rash EXTREMITY: b/l lower extremity wrapped in dressing, left upper extremity swelling, brachiocephalic AV fistula with decent thrill and bruit. NEURO: No gross focal neurological deficit, speech fluent, somewhat confused. PSYCHIATRY: Normal mood Results & Data Vital Signs (Past 12 Hours) Vital Signs Temp Pulse Pulse Resp BP Pulse Ox 11/09/18 07:18 36.8 C 60 18 102/62 98 11/09/18 04:09 36.9 C 58 L 18 123/67 98 11/08/18 23:35 61 11/08/18 23:00 36.5 C 62 20 112/69 99
[2018-11-09] MEDS ORDERED: PHARMACY GLYCEMIC MGMT CONSULT PRN (12:44)
[2018-11-09] MEDS ORDERED: DAPTOMYCIN CONSULT ACTIVE PRN (12:45)
--- NOTE | 2018-11-09 13:02 | Hospitalist Progress Note ---
Date of Service November 09, 2018 Assessment & Plan (1) Altered mental status: Somnolence, confusion. Likely secondary to uremia and infection of the legs. CT head negative -Following renal function and no urgent dialysis needed today -Delirium prevention strategies -Treating infection as below (2) Chronic kidney failure: CKD stage 5 with acute kidney injury superimposed -Nephrology consultation --Avoid nephrotoxic agents. Renal dosing where appropriate -Hold lisinopril -Continue Bumex to encourage urine output Follow daily BMP Planning on dialysis-no urgent dialysis needed today, has AV fistula in left upper extremity that should be mature in the next few weeks (3) Infected wound: Bilateral LE wounds, dressings changed today by wound care He basically has denuded skin for a large portion of the anterior right tibia according to wound pictures, and a wound in the left distal tibia medially as well as a toe wound Afebrile here -Continue daptomycin and Zosyn for broad-spectrum coverage, renally dosed -Wound care consult appreciated (4) Left arm swelling: s/p fistula placement with subsequent fistulogram and revision at [facility] -Obtain records. -Neurovascular checks q shift -Elevate with pillow and will place orthotics consult for compression wrap as per patient's 's request which was recommended to her by vascular surgeon (5) Ischemic dilated cardiomyopathy: Patient appears euvolemic -Continue home medications (6) Hypertension: Stable, chronic -Continue home medications of metoprolol succinate 2 mg daily -Holding lisinopril due to acute kidney injury (7) Hypercholesterolemia: Chronic, stable -Continue Lipitor (8) Diabetes mellitus type 2, insulin dependent: Hemoglobin A1c 7.1% [id number] With hypoglycemia this morning, secondary to significantly high home doses of insulin in the setting of acute kidney injury Hypoglycemia may have also been contributing to his mental status changes at home Holding all insulin from home -Sliding scale insulin only right now is recommended by me-apparently a pharmacy consult was placed under my name and they gave him NPH 40 units this evening -Caution with long-acting insulin at this time (9) Coronary artery disease: Stable. Chronic. No CP, history of ischemic cardiomyopathy, CABG -Continue Metoprolol, ASA (10) Atrial fibrillation: Eliquis was on hold upon admission for possible line placement, temporary HD cath but no plans for this currently -Restart Eliquis Continue Metoprolol (11) Hemorrhoid: Preparation H-no longer complaining of pain from this (12) GERD (gastroesophageal reflux disease): Continue ranitidine (13) Hypothyroid: TSH normal here at 2.7 Continue Synthroid (14) Hyperkalemia: Potassium 5.6 on admission and now improved to 5.0 -Low potassium diet -Follow lytes carefully -No need for urgent dialysis at this time (15) Pacemaker: Noted, paced rhythm on telemetry (16) Anemia: Anemia of chronic renal disease, hemoglobin stable at 9.8 -Checking iron studies in the morning (17) DVT prophylaxis: Restarting Eliquis, has compression wraps on legs Disposition-remain hospitalized Subjective Patient still confused, but knows he is at [facility]. reports he has been very sleepy the last week or so but the real reason she brought him to the hospital yesterday was because his leg wounds were looking worse. He has been steadily declining from a mental status standpoint she says over the last 6 months but worse in the last couple of weeks. Patient is barely eating she said. He complains of pain in the legs. He had his compression wraps redone today by wound care. Telemetry with paced rhythm with PVCs with rates in the 60s. He did have a 5 beat run of V. tach. Review of Systems Review of Systems: All systems reviewed & are unremarkable except as noted in HPI & below (Denies chest pain or shortness of breath, denies headache or lightheadedness, denies abdominal pain.) Physical Exam Constitutional: + ill appearing and + obese; no acute distress Eyes: PERRL, conjunctivae normal, anicteric sclerae ENMT: external ear and nose normal, oropharynx normal Neck: trachea midline, no thyromegaly Respiratory: normal respiratory effort, lungs clear to auscultation Cardiovascular: Rate/Rhythm: regular rate and regular rhythm Extremities: + edema (Trace pitting edema of the feet, compression wraps in place to the knees and not removed) and + AV fistula (Left brachiocephalic with dressing in place, mild edema in left upper extremity into the hand) Gastrointestinal (Abdomen): normal bowel sounds, soft, nontender, no hepatosplenomegaly Musculoskeletal: Extremities: no cyanosis and no clubbing Skin: no rashes, warm and dry Neurologic: moves all extremities and awake; no focal motor deficits Psychiatric: Orientation: oriented to person, oriented to place and cooperative; + not alert (Drowsy but does wake up and answer questions) and + not oriented to time Eye Contact: + fair eye contact Results & Data Vital Signs (Past 12 Hours) Vital Signs Temp Pulse Resp BP Pulse Ox 11/09/18 11:21 36.4 C L 65 18 131/74 99 11/09/18 07:18 36.8 C 60 18 102/62 98 11/09/18 04:09 36.9 C 58 L 18 123/67 98 Laboratory Results 11/09/18 11/09/18 11/09/18 Range/Units 20:21 16:25 11:19 WBC (4.8-10.8) K/uL RBC (4.7-6.1) M/uL Hgb (14.0-18.0) g/dL Hct (42-52) % MCV (80-100) fL MCH (25-34) pg MCHC (32-36) g/dL RDW Std Deviation (36.4-46.3) fL RDW Coeff of Virginie (11.5-14.5) % Plt Count (130-400) K/uL MPV (7.4-10.4) fL Immature Gran % (Auto) % Neut % (Auto) % Lymph % (Auto) % Davis % (Auto) % Eos % (Auto) % Baso % (Auto) % Immature Gran # (Auto) (0.00-0.02) K/uL Neut # (Auto) (1.4-6.5) K/uL Lymph # (Auto) (1.2-3.4) K/uL Davis # (Auto) (0.11-0.59) K/uL Eos # (Auto) (0-0.5) K/uL Baso # (Auto) (0-0.2) K/uL Sodium (136-145) mmol/L Potassium (3.5-5.1) mmol/L Chloride (98-107) mmol/L Carbon Dioxide (21-32) mmol/L Anion Gap (3-11) BUN (7-18) mg/dl Creatinine (0.6-1.4) mg/dl Est Cr Clr Drug Dosing ml/min Est GFR ( Amer) Est GFR (Non-Af Amer) BUN/Creatinine Ratio (10-20) Glucose (70-99) mg/dl POC Glucose 135 H 160 H 197 H (70-99) Calcium (8.5-10.1) mg/dl 11/09/18 11/09/18 11/09/18 Range/Units 08:04 07:45 07:45 WBC (4.8-10.8) K/uL RBC (4.7-6.1) M/uL Hgb (14.0-18.0) g/dL Hct (42-52) % MCV (80-100) fL MCH (25-34) pg MCHC (32-36) g/dL RDW Std Deviation (36.4-46.3) fL RDW Coeff of Virginie (11.5-14.5) % Plt Count (130-400) K/uL MPV (7.4-10.4) fL Immature Gran % (Auto) % Neut % (Auto) % Lymph % (Auto) % Davis % (Auto) % Eos % (Auto) % Baso % (Auto) % Immature Gran # (Auto) (0.00-0.02) K/uL Neut # (Auto) (1.4-6.5) K/uL Lymph # (Auto) (1.2-3.4) K/uL Davis # (Auto) (0.11-0.59) K/uL Eos # (Auto) (0-0.5) K/uL Baso # (Auto) (0-0.2) K/uL Sodium (136-145) mmol/L Potassium (3.5-5.1) mmol/L Chloride (98-107) mmol/L Carbon Dioxide (21-32) mmol/L Anion Gap (3-11) BUN (7-18) mg/dl Creatinine (0.6-1.4) mg/dl Est Cr Clr Drug Dosing ml/min Est GFR ( Amer) Est GFR (Non-Af Amer) BUN/Creatinine Ratio (10-20) Glucose (70-99) mg/dl POC Glucose 70 58 L* 61 L* (70-99) Calcium (8.5-10.1) mg/dl 11/09/18 11/09/18 11/09/18 Range/Units 07:30 07:29 07:11 WBC (4.8-10.8) K/uL RBC (4.7-6.1) M/uL Hgb (14.0-18.0) g/dL Hct (42-52) % MCV (80-100) fL MCH (25-34) pg MCHC (32-36) g/dL RDW Std Deviation (36.4-46.3) fL RDW Coeff of Virginie (11.5-14.5) % Plt Count (130-400) K/uL MPV (7.4-10.4) fL Immature Gran % (Auto) % Neut % (Auto) % Lymph % (Auto) % Davis % (Auto) % Eos % (Auto) % Baso % (Auto) % Immature Gran # (Auto) (0.00-0.02) K/uL Neut # (Auto) (1.4-6.5) K/uL Lymph # (Auto) (1.2-3.4) K/uL Davis # (Auto) (0.11-0.59) K/uL Eos # (Auto) (0-0.5) K/uL Baso # (Auto) (0-0.2) K/uL Sodium 138 (136-145) mmol/L Potassium 5.0 (3.5-5.1) mmol/L Chloride 105 (98-107) mmol/L Carbon Dioxide 25 (21-32) mmol/L Anion Gap 8.0 (3-11) BUN 102 H (7-18) mg/dl Creatinine 5.25 H* (0.6-1.4) mg/dl Est Cr Clr Drug Dosing 13.1 ml/min Est GFR ( Amer) 10.9 Est GFR (Non-Af Amer) 9.4 BUN/Creatinine Ratio 19.4 (10-20) Glucose 50 L* (70-99) mg/dl POC Glucose 68 L* 65 L* (70-99) Calcium 8.8 (8.5-10.1) mg/dl 11/09/18 Range/Units 07:11 WBC 7.94 (4.8-10.8) K/uL RBC 3.53 L (4.7-6.1) M/uL Hgb 9.8 L (14.0-18.0) g/dL Hct 31.4 L (42-52) % MCV 89.0 (80-100) fL MCH 27.8 (25-34) pg MCHC 31.2 L (32-36) g/dL RDW Std Deviation 54.6 H (36.4-46.3) fL RDW Coeff of Virginie 16.8 H (11.5-14.5) % Plt Count 203 (130-400) K/uL MPV 9.8 (7.4-10.4) fL Immature Gran % (Auto) 0.3 % Neut % (Auto) 73.2 % Lymph % (Auto) 11.7 % Davis % (Auto) 10.7 % Eos % (Auto) 3.7 % Baso % (Auto) 0.4 % Immature Gran # (Auto) 0.02 (0.00-0.02) K/uL Neut # (Auto) 5.82 (1.4-6.5) K/uL Lymph # (Auto) 0.93 L (1.2-3.4) K/uL Davis # (Auto) 0.85 H (0.11-0.59) K/uL Eos # (Auto) 0.29 (0-0.5) K/uL Baso # (Auto) 0.03 (0-0.2) K/uL Sodium (136-145) mmol/L Potassium (3.5-5.1) mmol/L Chloride (98-107) mmol/L Carbon Dioxide (21-32) mmol/L Anion Gap (3-11) BUN (7-18) mg/dl Creatinine (0.6-1.4) mg/dl Est Cr Clr Drug Dosing ml/min Est GFR ( Amer) Est GFR (Non-Af Amer) BUN/Creatinine Ratio (10-20) Glucose (70-99) mg/dl POC Glucose (70-99) Calcium (8.5-10.1) mg/dl (1) Altered mental status Altered mental status type: unspecified Qualified Code(s): R41.82 - Altered mental status, unspecified (2) Chronic kidney failure Chronic kidney disease stage: unspecified stage Qualified Code(s): N18.9 - Chronic kidney disease, unspecified
[2018-11-09] MEDS: PIPERACILLIN/TAZOBACTAM 4.5 GM in DEXTROSE 5% 100 ML IV SCH (13:31)
--- NOTE | 2018-11-09 14:05 | Pharmacy Report ---
Glycemic Control Consultation - Date of Service November 09, 2018 - Scope Scope: Glycemic Pharmacist consulted by Dr. Arrington on 11/09/18 for glycemic control and to write orders per [facility] inpatient glycemic control protocol - Objective Weight: 114.3 kg Accuchecks BSG (last 24hrs): 11/08/18 11/08/18 11/09/18 14:34 20:13 07:11 Glucose 122 H 50 L* POC Glucose 84 11/09/18 11/09/18 11/09/18 07:29 07:30 07:45 Glucose POC Glucose 65 L* 68 L* 61 L* 11/09/18 11/09/18 11/09/18 07:45 08:04 11:19 Glucose POC Glucose 58 L* 70 197 H Laboratory Data (last 24hrs): 11/08/18 11/09/18 14:34 07:11 Potassium 5.6 H 5.0 Carbon Dioxide 28 25 Anion Gap 8.0 8.0 Creatinine 5.35 H* 5.25 H* Est Cr Clr Drug Dosing 13.1 13.1 HbA1c: 7.8 % (4.5-5.6) H 11/08/18 14:34 - Recent Pertinent Medications Outpatient Anti-diabetic Regimen: * Novolin 70/30: 90 units with breakfast, 19 units with lunch and 90 units with dinner. Regimen confirmed with who is responsible for managing outpatient regimen. * A1c = 7.8 % 11/08/18 The patient is currently receiving: * Basal insulin: None * Correctional Insulin: Novolog Correction per scale ACHS Goal Range: Low 80 mg/dL - High 140 mg/dL Correction Factor: 15 mg/dL/unit * Prandial insulin: Per carb ratio of 1 unit per 7 grams CHO consumed Risk Factors for Insulin Resistance: * Infection: Receiving Zosyn and Vancomycin for bilateral LE wounds * Diet: T2DM - Assessment & Plan Assessment & Plan: ASSESSMENT: * Mr. Holder is a 83 yo M admitted to [facility] on 11/08 with an altered mental status * PMH includes type II diabetes. Last A1c 7.8% (11/08). * Patient follows with Dr. Pelayo as an outpatient. states that patient's Novolin 70/30 dose was decreased approximately two weeks ago due to AM hypoglycemia. * Per [employer], patient's diet at home is carb heavy. Would expect the patient's overall insulin needs to be lower while inpatient due to change in diet. PLAN FOR INPATIENT GLYCEMIC CONTROL * Basal insulin - will give ~70% of home dose as needs are expected to be less * NPH with dinner per following scale: * 40 units if BSG below 200 mg/dl * 50 units if BSG 200 mg/dl or greater * Bolus insulin -tightened * NovoLog per scale ACHS or Q6hrs while NPO * Goal Range: Low 110 mg/dL - High 140 mg/dL * Correction Factor: 12 mg/dL/unit * Nutritional / Prandial insulin per carb ratio of 1 unit per 4 grams CHO consumed * Please note that the plan above was derived based on current level of insulin resistance and hospital stress. These recommendations are appropriate for inpatient admission only. Plan of care upon discharge will need to be reassessed to avoid potential outpatient hypo/hyperglycemia. Thank you.
[2018-11-09] MEDS: ATORVASTATIN 40 MG TAB PO SCH (16:01)
[2018-11-09] MEDS: TRAMADOL HCL 50 MG TABLET PO PRN (16:19)
[2018-11-09] MEDS ORDERED: INSULIN HUMAN NPH SC SCH (17:00)
[2018-11-09] MEDS ORDERED: MICONAZOLE NITRATE POWDER 43 GM EXT PRN (19:18)
[2018-11-10] MEDS: PIPERACILLIN/TAZOBACTAM 4.5 GM in DEXTROSE 5% 100 ML IV SCH ×2 (04:11→14:23)
[2018-11-10] MEDS: LEVOTHYROXINE SODIUM 100 MCG TABLET PO SCH (05:28)
[2018-11-10] MEDS: CARBOHYDRATES FOR HYPOGLYCEMIA PO PRN (07:49)
[2018-11-10] MEDS: CALCIUM 600MG + VIT D 400 IU TAB PO SCH (07:52)
[2018-11-10] MEDS: DOCUSATE SODIUM 100 MG CAP PO SCH ×2 (07:52→16:41)
[2018-11-10] MEDS: BUMETANIDE 1 MG TAB PO SCH ×2 (07:52→16:42)
[2018-11-10] MEDS: ASPIRIN 81 MG ECTAB PO SCH (07:52)
[2018-11-10] MEDS: METOPROLOL SUCC 50MG EXT REL TAB PO SCH (07:52)
[2018-11-10 07:57] LABS: Albumin Level 2.6 gm/dl (3.4-5.0); BUN Creatinine Ratio 20.4 (10-20); Calcium 8.4 mg/dl (8.5-10.1); Creatinine Clr Calc Pharmacy 13.1 ml/min; Est GFR (African American) 10.9; Est GFR (Non-African American) 9.4; Ferritin 35.6 ng/ml (8-388); Phosphorus 4.7 mg/dl (2.5-4.9); Potassium 4.5 mmol/L (3.5-5.1)
[2018-11-10] MEDS ORDERED: INSULIN HUMAN NPH SC SCH ×3 (08:00→16:30)
[2018-11-10] MEDS: GABAPENTIN 300 MG CAP PO SCH (08:36)
[2018-11-10] MEDS: APIXABAN 2.5 MG TAB PO SCH ×2 (08:36→16:41)
[2018-11-10] MEDS: INSULIN ASPART 100 UNITS/ML 3 ML PEN SC SCH ×4 (09:07→20:36)
[2018-11-10] MEDS: CALCITRIOL 0.25 MCG CAPSULE PO SCH (09:43)
--- NOTE | 2018-11-10 09:52 | Nephrology Progress Note ---
Date of Service November 10, 2018 Assessment & Plan (1) TASHA (acute kidney injury): 83 y o Male with baseline stage 5 CKD, getting close to needing dialysis, baseline creatinine 4.0-4.5. 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 Admitted to the hospital with change in mental status and found to have acute kidney injury and hyperkalemia. Received IV normal saline which currently stopped. Hyperkalemia resolved and kidney function staying relatively stable. Has chronic bilateral lower extremity venous insufficiency ulcer currently wrapped in dressing and started on Zosyn and daptomycin empirically. Blood pressure well controlled, volume status acceptable, non-oliguric. Change in mental status could be due to underlying chronic infection, azotemia or others -- electrolyte abnormality resolved ,, volume status acceptable, however BUN has been rising, unclear whether dialyis will help improve mental status --monitor renal function closely , if BUN continues to rise, will consider starting on HD tomorrow --dose medications for GFR <10 --start venofer and calcitriol Will follow Thank you for allowing me to participate in your patient's care. It was a pleasure to see Lance (2) Stage 5 chronic kidney disease: (3) Hyperkalemia: (4) Acute confusion: (5) Left arm swelling: (6) Secondary hyperparathyroidism of renal origin: (7) Anemia: Subjective Damien was seen examined his room this morning. He continues to be confused however, awake, alert, otherwise asymptomatic. Blood pressure has been stable. Remain non-oliguric, volume status acceptable. Electrolyte acceptable although no further improvement in renal function, BUN 107 Physical Exam Constitutional: WD/WN, vitals as above awake, alert, confused. Respiratory: normal respiratory effort, lungs clear to auscultation Cardiovascular: RRR, no murmur, no edema Extremities: + pedal edema (b/l LE wrapped in dressing) Neurologic: moves all extremities and awake Psychiatric: A+Ox3, euthymic affect Results & Data Vital Signs (Past 12 Hours) Vital Signs Temp Pulse Pulse Resp BP Pulse Ox 11/10/18 08:00 65 11/10/18 07:00 36.4 C L 60 19 120/70 97 11/10/18 04:00 36.6 C 60 20 115/63 96 11/09/18 23:42 36.6 C 71 20 120/70 98
[2018-11-10] MEDS: IRON SUCROSE 200 MG in 0.9 % SODIUM CHLORIDE 100 ML IV SCH (11:13)
--- NOTE | 2018-11-10 14:03 | Pharmacy Report ---
Glycemic Control Progress Note - Date of Service November 10, 2018 - Scope Glycemic Pharmacist consulted for glycemic control to write orders per [facility] inpatient glycemic control protocol. - Objective Accuchecks BSG(last 24 hours):: 11/09/18 11/09/18 11/10/18 16:25 20:21 06:31 Glucose 47 L* POC Glucose 160 H 135 H 11/10/18 11/10/18 11/10/18 07:34 07:36 08:08 Glucose POC Glucose 58 L* 56 L* 71 11/10/18 11/10/18 09:05 11:17 Glucose POC Glucose 96 97 HbA1c:: 7.8 % (4.5-5.6) H 11/08/18 14:34 - Recent Pertinent Medications The patient is currently receiving: * Basal insulin: NPH 40 units x 1 at dinner units * Correctional Insulin: Novolog Correction per scale ACHS Goal Range: Low 110 mg/dL - High 140 mg/dL Correction Factor: 12 mg/dL/unit * Prandial insulin: Per carb ratio of 1 unit per 4 grams CHO consumed - Outpatient Anti-Diabetic Meds Novolin 70/30 - 90 units with breakfast and dinner; 17 units with lunch - Assessment & Plan ASSESSMENT: * See progress note from 11/09/18 for more background info, in short: * Pt receiving SQ basal bolus insulin regimen for hyperglycemia secondary to baseline DM (outpatient regimen on hold). * Patient is currently receiving an average of 53 units of insulin per day * 40 units of basal insulin * 13 units of prandial/correctional insulin * BSGs ranging 65 - 197 mg/dl over the past 24hrs * Changes needed to insulin regimen: * AM Fasting BSG = 47 mg/dl. This is below goal range for patient based on inpatient targets and co-morbidities. Therefore Basal insulin will be decreased. NPH 40 units was already a decreased dose for the patient. HOWEVER, it appears that he is very lethargic and has a drastically different diet. Therefore reduced to 20 units this morning. Have a 10 unit dose if patient is above 200 mg/dL at dinner. * Post-prandial BSGs are lower. Loosen to weight-based stress of 1-2. * Total daily dose = <50 units. PLAN FOR INPATIENT GLYCEMIC CONTROL: * Decreasing NPH to 10 units if above 140 mg/dl and 10 units with dinner if above 200 mg/dL * LOOSENING correction factor to 30 mg/dl/unit * LOOSENING carb ratio to 1 unit per 10 grams CHO consumed * Continuing goal range to Low 110 mg/dL - High 140 mg/dL RECOMMENDATIONS FOR DISCHARGE: * Awaiting to see hospital course. * Please note that the plan above was derived based on current level of insulin resistance and hospital stress. These recommendations are appropriate for inpatient admission only. Plan of care upon discharge will need to be reassessed to avoid potential outpatient hypo/hyperglycemia. Thank you.
[2018-11-10] MEDS: ATORVASTATIN 40 MG TAB PO SCH (16:41)
[2018-11-10] MEDS ORDERED: DAPTOmycin 350 MG in SYRINGE 0 ML IV SCH (18:00)
--- NOTE | 2018-11-10 19:51 | Hospitalist Progress Note ---
Date of Service November 10, 2018 Assessment & Plan (1) Altered mental status: Acute metabolic encephalopathy with somnolence, confusion worsening over the 1 to 2 weeks prior to admission. Likely secondary to uremia and infection of the legs. CT head negative Mildly improved today which may be a reflection of treating the leg wound infections as below -renal function stable and making urine-no urgent dialysis needed today -Delirium prevention strategies -Treating infection as below (2) Chronic kidney failure: CKD stage 5 with acute kidney injury superimposed-renal function stable today, continues to make urine Is uremic, with encephalopathy as above -Nephrology consultation appreciated-considering starting dialysis perhaps tomorrow --Avoid nephrotoxic agents. Renal dosing where appropriate -Holding lisinopril -Continue Bumex to encourage urine output Follow daily BMP -has AV fistula in left upper extremity that should be mature in the next few weeks -Started on calcitriol today by nephrology (3) Infected wound: Bilateral LE wounds, dressings changed on 11/09 by wound care He basically has denuded skin for a large portion of the anterior right tibia according to wound pictures, and a wound in the left distal tibia medially as well as a toe wound Afebrile here Wound care nurse says that the legs look improved from previous Left leg wound is growing Proteus-sensitivities pending Right wound culture is growing MSSA -Continue daptomycin and Zosyn for broad-spectrum coverage, renally dosed-can likely switch to oral antibiotics in the next 1 to 2 days -Wound care consult appreciated -Continue tramadol as needed for pain in the legs (4) Left arm swelling: s/p fistula placement with [place] [facility] [place] fistula has good thrill on examination -Elevate with pillow and orthotics consult appreciated for compression wrap of left upper extremity which was recommended by vascular surgery as per (5) Ischemic dilated cardiomyopathy: Patient appears euvolemic -Continue home medications with Bumex, metoprolol succinate 200 mg once daily -DC'd lisinopril due to acute kidney injury (6) Hypertension: Stable, chronic -Continue home medications of metoprolol succinate, Bumex -Holding lisinopril due to acute kidney injury (7) Hypercholesterolemia: Chronic, stable -Will hold Lipitor while on daptomycin (8) Diabetes mellitus type 2, insulin dependent: Hemoglobin A1c 7.1% [id number] as an outpatient With persistent severe morning hypoglycemia into the 40s-50s for the last 2 days, secondary to significantly high doses of insulin in the setting of acute kidney injury Hypoglycemia may have also been contributing to his mental status changes at home Holding all insulin from home -Sliding scale insulin only right now unless blood sugar greater than 200-we will give NPH 10 units in the evening and 10 units in the morning if blood sugar greater than 140 -Caution with long-acting insulin at this time (9) Coronary artery disease: Stable. Chronic. No CP, history of ischemic cardiomyopathy, CABG -Continue Metoprolol, ASA -Holding Lipitor while on daptomycin (10) Atrial fibrillation: -Continue Eliquis for anticoagulation-would hold if is going to have temporary dialysis catheter placed Continue Metoprolol -He is mostly in paced rhythm on telemetry (11) Hemorrhoid: Preparation H-no longer complaining of pain from this (12) GERD (gastroesophageal reflux disease): Continue ranitidine (13) Hypothyroid: TSH normal here at 2.7 Continue Synthroid (14) Hyperkalemia: Potassium 5.6 on admission and now improved to 4.5 -Continue low potassium diet -Follow lytes carefully -No need for urgent dialysis at this time (15) Pacemaker: Noted, paced rhythm on telemetry (16) Anemia: Anemia of chronic renal disease, hemoglobin stable at 9.8 -Iron studies show significant iron deficiency with ferritin 35, serum iron 32, iron saturation 9% -Started IV Venofer as per nephrology (17) DVT prophylaxis: [place], has compression wraps on legs Disposition-remain hospitalized Subjective Patient more alert and conversational when I saw him this evening. Denies pain in the legs. Denies chest pain or shortness of breath. He was again severely hypoglycemic this morning. Insulin has been adjusted and discussed the case with the pharmacist who is managing his blood glucose. Telemetry with paced rhythm in the 60s Review of Systems Review of Systems: All systems reviewed & are unremarkable except as noted in HPI & below Physical Exam Constitutional: + ill appearing and + obese; no acute distress Eyes: PERRL, conjunctivae normal, anicteric sclerae ENMT: external ear and nose normal, oropharynx normal Neck: trachea midline, no thyromegaly Respiratory: normal respiratory effort, lungs clear to auscultation Cardiovascular: Rate/Rhythm: regular rate and regular rhythm Extremities: + edema (Trace pitting edema of the feet, compression wraps in place to the knees and not removed) and + AV fistula (Left brachiocephalic with dressing in place, mild edema in left upper extremity into the hand) Gastrointestinal (Abdomen): normal bowel sounds, soft, nontender, no hepatosplenomegaly Musculoskeletal: Extremities: no cyanosis and no clubbing Skin: no rashes, warm and dry Neurologic: moves all extremities and awake; no focal motor deficits Psychiatric: Orientation: alert, oriented to person, oriented to place and cooperative Results & Data Vital Signs (Past 12 Hours) Vital Signs Temp Pulse Pulse Resp BP Pulse Ox 11/10/18 19:17 36.6 C 61 20 141/70 H 95 11/10/18 14:55 36.6 C 79 21 133/77 92 11/10/18 11:37 36.5 C 60 18 139/66 100 11/10/18 08:00 65 Laboratory Results 11/11/18 11/11/18 11/10/18 Range/Units 05:17 01:56 20:20 Sodium 137 (136-145) mmol/L Potassium 4.7 (3.5-5.1) mmol/L Chloride 103 (98-107) mmol/L Carbon Dioxide 26 (21-32) mmol/L Anion Gap 9.0 (3-11) BUN 108 H (7-18) mg/dl Creatinine 5.30 H* (0.6-1.4) mg/dl Est Cr Clr Drug Dosing 13.0 ml/min Est GFR ( Amer) 10.8 Est GFR (Non-Af Amer) 9.3 BUN/Creatinine Ratio 19.6 (10-20) Glucose 102 H (70-99) mg/dl POC Glucose 136 H 95 (70-99) Calcium 8.7 (8.5-10.1) mg/dl Phosphorus 4.8 (2.5-4.9) mg/dl Iron (35-175) mcg/dl Transferrin (200-360) mg/dl Transferrin % Sat (20-50) % Ferritin (8-388) ng/ml Total Creatine Kinase (39-308) U/L Albumin 2.4 L (3.4-5.0) gm/dl PTH Intact (18.4-80.1) pg/ml 11/10/18 11/10/18 11/10/18 Range/Units 16:13 11:17 09:05 Sodium (136-145) mmol/L Potassium (3.5-5.1) mmol/L Chloride (98-107) mmol/L Carbon Dioxide (21-32) mmol/L Anion Gap (3-11) BUN (7-18) mg/dl Creatinine (0.6-1.4) mg/dl Est Cr Clr Drug Dosing ml/min Est GFR ( Amer) Est GFR (Non-Af Amer) BUN/Creatinine Ratio (10-20) Glucose (70-99) mg/dl POC Glucose 100 H 97 96 (70-99) Calcium (8.5-10.1) mg/dl Phosphorus (2.5-4.9) mg/dl Iron (35-175) mcg/dl Transferrin (200-360) mg/dl Transferrin % Sat (20-50) % Ferritin (8-388) ng/ml Total Creatine Kinase (39-308) U/L Albumin (3.4-5.0) gm/dl PTH Intact (18.4-80.1) pg/ml 11/10/18 11/10/18 11/10/18 Range/Units 08:08 07:36 07:34 Sodium (136-145) mmol/L Potassium (3.5-5.1) mmol/L Chloride (98-107) mmol/L Carbon Dioxide (21-32) mmol/L Anion Gap (3-11) BUN (7-18) mg/dl Creatinine (0.6-1.4) mg/dl Est Cr Clr Drug Dosing ml/min Est GFR ( Amer) Est GFR (Non-Af Amer) BUN/Creatinine Ratio (10-20) Glucose (70-99) mg/dl POC Glucose 71 56 L* 58 L* (70-99) Calcium (8.5-10.1) mg/dl Phosphorus (2.5-4.9) mg/dl Iron (35-175) mcg/dl Transferrin (200-360) mg/dl Transferrin % Sat (20-50) % Ferritin (8-388) ng/ml Total Creatine Kinase (39-308) U/L Albumin (3.4-5.0) gm/dl PTH Intact (18.4-80.1) pg/ml 11/10/18 11/10/18 Range/Units 06:31 06:31 Sodium 137 (136-145) mmol/L Potassium 4.5 (3.5-5.1) mmol/L Chloride 104 (98-107) mmol/L Carbon Dioxide 26 (21-32) mmol/L Anion Gap 7.0 (3-11) BUN 108 H (7-18) mg/dl Creatinine 5.26 H* (0.6-1.4) mg/dl Est Cr Clr Drug Dosing 13.1 ml/min Est GFR ( Amer) 10.9 Est GFR (Non-Af Amer) 9.4 BUN/Creatinine Ratio 20.4 H (10-20) Glucose 47 L* (70-99) mg/dl POC Glucose (70-99) Calcium 8.4 L (8.5-10.1) mg/dl Phosphorus 4.7 (2.5-4.9) mg/dl Iron 32 L (35-175) mcg/dl Transferrin 248 (200-360) mg/dl Transferrin % Sat 9 L (20-50) % Ferritin 35.6 (8-388) ng/ml Total Creatine Kinase 172 (39-308) U/L Albumin 2.6 L (3.4-5.0) gm/dl PTH Intact 167.3 H (18.4-80.1) pg/ml (1) Altered mental status Altered mental status type: unspecified Qualified Code(s): R41.82 - Altered mental status, unspecified (2) Chronic kidney failure Chronic kidney disease stage: unspecified stage Qualified Code(s): N18.9 - Chronic kidney disease, unspecified
[2018-11-11] MEDS ORDERED: INSULIN ASPART 100 UNITS/ML 3 ML PEN SC SCH (02:00)
[2018-11-11] MEDS: PIPERACILLIN/TAZOBACTAM 4.5 GM in DEXTROSE 5% 100 ML IV SCH (02:12)
[2018-11-11] MEDS: LEVOTHYROXINE SODIUM 100 MCG TABLET PO SCH (05:42)
[2018-11-11 06:27] LABS: Albumin Level 2.4 gm/dl (3.4-5.0); BUN Creatinine Ratio 19.6 (10-20); Calcium 8.7 mg/dl (8.5-10.1); Est GFR (African American) 10.8; Est GFR (Non-African American) 9.3; Phosphorus 4.8 mg/dl (2.5-4.9); Potassium 4.7 mmol/L (3.5-5.1)
[2018-11-11] MEDS ORDERED: INSULIN HUMAN NPH SC SCH ×3 (07:30→13:30)
[2018-11-11] MEDS: DOCUSATE SODIUM 100 MG CAP PO SCH ×2 (07:55→16:45)
[2018-11-11] MEDS: GABAPENTIN 300 MG CAP PO SCH (07:55)
[2018-11-11] MEDS: METOPROLOL SUCC 50MG EXT REL TAB PO SCH (07:56)
[2018-11-11] MEDS: CALCITRIOL 0.25 MCG CAPSULE PO SCH (07:56)
[2018-11-11] MEDS: APIXABAN 2.5 MG TAB PO SCH ×2 (07:56→16:45)
[2018-11-11] MEDS: ASPIRIN 81 MG ECTAB PO SCH (07:56)
[2018-11-11] MEDS: BUMETANIDE 1 MG TAB PO SCH ×2 (07:56→16:45)
[2018-11-11] MEDS: CALCIUM 600MG + VIT D 400 IU TAB PO SCH (07:56)
[2018-11-11] MEDS: INSULIN ASPART 100 UNITS/ML 3 ML PEN SC SCH ×4 (07:58→20:50)
--- NOTE | 2018-11-11 08:28 | Nephrology Progress Note ---
Date of Service November 11, 2018 Assessment & Plan (1) TASHA (acute kidney injury): 83 y o Male with baseline stage 5 CKD, getting close to needing dialysis, baseline creatinine 4.0-4.5. 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 Admitted to the hospital with change in mental status and found to have acute kidney injury and hyperkalemia. Received IV normal saline which currently stopped. Hyperkalemia resolved and kidney function staying relatively stable. Has chronic bilateral lower extremity venous insufficiency ulcer currently wrapped in dressing and started on Zosyn and daptomycin empirically. Blood pressure well controlled, volume status acceptable, non-oliguric. Change in mental status could be due to underlying chronic infection, azotemia or others -- electrolyte abnormality resolved ,, volume status acceptable, BUN/creatinine remained elevated without any further changes unclear whether dialyis will help improve mental status. AV fistula has decent thrill and bruit but not mature enough to be Used yet --monitor renal function closely, no acute indication for dialysis today. if dialysis is needed in next few days, we may have to get a temporary access for dialysis --dose medications for GFR <10 --start venofer and calcitriol Will follow Thank you for allowing me to participate in your patient's care. It was a pleasure to see Lance (2) Stage 5 chronic kidney disease: (3) Hyperkalemia: (4) Acute confusion: (5) Left arm swelling: (6) Secondary hyperparathyroidism of renal origin: (7) Anemia: Lidia Quezada was seen and examined this morning, he is awake, alert but continues to be somewhat confused. Renal function electrolyte remain stable without any significant changes. Blood pressure well control, has decent urine output. Denies shortness of breath or chest pain. Physical Exam Constitutional: WD/WN, vitals as above Respiratory: normal respiratory effort, lungs clear to auscultation Cardiovascular: RRR, no murmur, no edema Extremities: + pedal edema (b/l LE wrapped in dressing) and + AV fistula (Left brachiocephalic AV fistula with thrill and bruit, some edema) Neurologic: moves all extremities and awake Psychiatric: A+Ox3, euthymic affect Results & Data Vital Signs (Past 12 Hours) Vital Signs Temp Pulse Pulse Resp BP Pulse Ox 11/11/18 07:19 36.4 C L 61 18 125/76 100 05/24/19 04:00 36.8 C 57 L 20 120/67 98 11/10/18 23:30 62 11/10/18 23:00 36.7 C 60 20 112/67 98
[2018-11-11] MEDS: cephALEXin 250 MG CAP PO SCH (09:22)
[2018-11-11] MEDS: TRAMADOL HCL 50 MG TABLET PO PRN (12:38)
--- NOTE | 2018-11-11 13:49 | Pharmacy Report ---
Pharmacy Glycemic Short Note 2 - Date of Service November 11, 2018 - Glycemic Short BSG Results (Last 24 hours): 11/10/18 11/10/18 11/11/18 16:13 20:20 01:56 Glucose POC Glucose 100 H 95 136 H 11/11/18 11/11/18 11/11/18 05:17 07:50 12:15 Glucose 102 H POC Glucose 89 208 H OUTPATIENT ANTIDIABETIC REGIMEN: * Novolin 70/30 - 90 units with breakfast and dinner; 19 units with lunch * Total daily outpatient dose: 199 units/day ASSESSMENT: 11/11: * AM fasting BSG = 89 mg/dl. Patient did not receive NPH last evening. * Patient remains confused and lethargic; most likely due to uremia * Patient received 23 units of insulin yesterday; this is a 50% decrease from day prior due to AM hypoglycemia on 11/10 * 20 units of basal insulin * 3 units of prandial/correctional insulin * Changes needed to insulin regimen: * Eliminate NPH administration in the evening due to patient's AM hypoglycemia PLAN FOR INPATIENT GLYCEMIC CONTROL: * Basal insulin - decreased * NPH units 10 units x1 today @1330 in response to 208 mg/dl BSG at lunch * Initiate 10 units QAM starting tomorrow 11/12 * Bolus insulin * NovoLog per scale ACHS or Q6hrs while NPO * Goal Range: Low 120 mg/dL - High 160 mg/dL * Correction Factor: 30 mg/dL/unit * Nutritional / Prandial insulin per carb ratio of 1 unit per 10 grams CHO consumed PLAN FOR DISCHARGE: *
--- NOTE | 2018-11-11 15:25 | Hospitalist Progress Note ---
Date of Service November 11, 2018 Assessment & Plan (1) Altered mental status: Acute metabolic encephalopathy with somnolence, confusion worsening over the 1 to 2 weeks prior to admission. Likely secondary to uremia and infection of the legs. CT head negative Now much improved which may be a reflection of treating the leg wound infections as below Obviously, some of his alteration is due to uremia and worsening renal function -renal function stable and continues to be making urine-no urgent dialysis needed today -Delirium prevention strategies -Treating infection as below (2) Chronic kidney failure: CKD stage 5 with acute kidney injury superimposed-renal function stable today, continues to make urine Is uremic, with encephalopathy as above -Nephrology consultation appreciated-no dialysis at this time, but will continue to follow through the weekend -If dialysis is needed, would need temporary dialysis catheter-vascular surgery is unavailable here but critical care doctor could place dialysis line if urgent --Avoid nephrotoxic agents. Renal dosing where appropriate -Holding lisinopril -Continue Bumex to encourage urine output Follow daily BMP -has AV fistula in left upper extremity that should be mature in the next few weeks -Started on calcitriol by nephrology (3) Infected wound: Bilateral LE wounds, dressings changed on 11/11 by wound care He basically has denuded skin for a large portion of the anterior right tibia according to wound pictures, and a wound in the left distal tibia medially as well as a toe wound Afebrile here Wound care nurse says that the legs look improved from previous Left leg wound is growing Proteus-pansensitive Right wound culture is growing MSSA -Received daptomycin and Zosyn for broad-spectrum coverage, today we will switch to Keflex renally dosed -Wound care consult appreciated -Continue tramadol and Tylenol as needed for pain in the legs (4) Left arm swelling: s/p fistula placement with [place] [facility] [place] AV fistula has good thrill on examination -Elevate with pillow and orthotics consult appreciated for compression wrap of left upper extremity which was recommended by vascular surgery as per (5) Ischemic dilated cardiomyopathy: Patient appears euvolemic -Continue home medications with Bumex, metoprolol succinate 200 mg once daily -DC'd lisinopril due to acute kidney injury (6) Hypertension: Stable, chronic -Continue home medications of metoprolol succinate, Bumex -Holding lisinopril due to acute kidney injury (7) Hypercholesterolemia: Chronic, stable -Okay to restart Lipitor now that off daptomycin (8) Diabetes mellitus type 2, insulin dependent: Hemoglobin A1c 7.1% [id number] as an outpatient With persistent severe morning hypoglycemia into the 40s-50s for the first 2 days of admission, secondary to significantly high doses of insulin in the setting of acute kidney injury This morning blood sugar improved to 100 Hypoglycemia may have also been contributing to his mental status changes at home Holding all insulin from home -Sliding scale insulin only right now unless blood sugar greater than 200-we will give NPH 10 units in the evening and 10 units in the morning if blood sugar greater than 140 -Caution with long-acting insulin at this time -Continue gabapentin 300 mg once daily for neuropathy (9) Coronary artery disease: Stable. Chronic. No CP, history of ischemic cardiomyopathy, CABG -Continue Metoprolol, ASA -Restarting Lipitor as above (10) Atrial fibrillation: -Continue Eliquis for anticoagulation-would hold if is going to have temporary dialysis catheter placed Continue Metoprolol -He is mostly in paced rhythm on telemetry (11) Hemorrhoid: Preparation H-no longer complaining of pain from this (12) GERD (gastroesophageal reflux disease): Continue ranitidine (13) Hypothyroid: TSH normal here at 2.7 Continue Synthroid (14) Hyperkalemia: Potassium 5.6 on admission and now improved -Continue low potassium diet -Follow lytes carefully -No need for urgent dialysis at this time (15) Pacemaker: Noted, paced rhythm on telemetry (16) Anemia: Anemia of chronic renal disease, hemoglobin stable at 9.8 -Iron studies show significant iron deficiency with ferritin 35, serum iron 32, iron saturation 9% -Started IV Venofer as per nephrology every 2 days with first dose on 11/10 (17) DVT prophylaxis: Bob, has compression wraps on legs Disposition-remain hospitalized likely through the weekend to continue to closely monitor his renal function PT/OT consults placed Will likely need rehab placement Subjective Patient more alert and interactive today. His and [id number] are at the bedside and report improved but not yet back to baseline with his mental status. They report he is joking around today more which is more his norm. He denies chest pain or shortness of breath, denies abdominal pain. Reports he has some pain in the right leg but not severe. I discussed his case with nephrology today. Telemetry with paced rhythm with rates in the 60s. Review of Systems Review of Systems: All systems reviewed & are unremarkable except as noted in HPI & below Physical Exam Constitutional: + ill appearing and + obese; no acute distress Eyes: PERRL, conjunctivae normal, anicteric sclerae Neck: trachea midline, no thyromegaly Respiratory: normal respiratory effort, lungs clear to auscultation Cardiovascular: Rate/Rhythm: regular rate and regular rhythm Extremities: + edema (Trace pitting edema of the feet, compression wraps in place to the knees and not removed) and + AV fistula (Left brachiocephalic with palpable thrill) Gastrointestinal (Abdomen): normal bowel sounds, soft, nontender, no hepatosplenomegaly Musculoskeletal: Extremities: no cyanosis and no clubbing Neurologic: moves all extremities and awake; no focal motor deficits Psychiatric: Orientation: alert, oriented to person, oriented to place and cooperative Results & Data Vital Signs (Past 12 Hours) Vital Signs Temp Pulse Pulse Resp BP Pulse Ox 11/11/18 12:00 36.8 C 60 18 108/55 L 97 11/11/18 08:00 64 11/11/18 07:19 36.4 C L 61 18 125/76 100 11/11/18 04:00 36.8 C 57 L 20 120/67 98 Laboratory Results 11/11/18 11/11/18 11/11/18 Range/Units 20:10 16:18 12:15 Sodium (136-145) mmol/L Potassium (3.5-5.1) mmol/L Chloride (98-107) mmol/L Carbon Dioxide (21-32) mmol/L Anion Gap (3-11) BUN (7-18) mg/dl Creatinine (0.6-1.4) mg/dl Est Cr Clr Drug Dosing ml/min Est GFR ( Amer) Est GFR (Non-Af Amer) BUN/Creatinine Ratio (10-20) Glucose (70-99) mg/dl POC Glucose 169 H 152 H 208 H (70-99) Calcium (8.5-10.1) mg/dl Phosphorus (2.5-4.9) mg/dl Albumin (3.4-5.0) gm/dl 11/11/18 11/11/18 11/11/18 Range/Units 07:50 05:17 01:56 Sodium 137 (136-145) mmol/L Potassium 4.7 (3.5-5.1) mmol/L Chloride 103 (98-107) mmol/L Carbon Dioxide 26 (21-32) mmol/L Anion Gap 9.0 (3-11) BUN 108 H (7-18) mg/dl Creatinine 5.30 H* (0.6-1.4) mg/dl Est Cr Clr Drug Dosing 13.0 ml/min Est GFR ( Amer) 10.8 Est GFR (Non-Af Amer) 9.3 BUN/Creatinine Ratio 19.6 (10-20) Glucose 102 H (70-99) mg/dl POC Glucose 89 136 H (70-99) Calcium 8.7 (8.5-10.1) mg/dl Phosphorus 4.8 (2.5-4.9) mg/dl Albumin 2.4 L (3.4-5.0) gm/dl (1) Altered mental status Altered mental status type: unspecified Qualified Code(s): R41.82 - Altered mental status, unspecified (2) Chronic kidney failure Chronic kidney disease stage: unspecified stage Qualified Code(s): N18.9 - Chronic kidney disease, unspecified
[2018-11-11] MEDS: ATORVASTATIN 40 MG TAB PO SCH (16:45)
--- NOTE | 2018-11-12 04:23 | Progress Note ---
Date of Service November 12, 2018 Subjective RN called around 1:15am with concern of pt's pacer spike being in QRS complex twice on telemetry Pt is confused as baseline, not complaining of any symptoms per RN Dr. Velez called - advised to obtain EKG as sometimes an artifact 12 lead EKG unchanged from EKG on 11/08 and pacer spikes in proper placement Results & Data Vital Signs (Past 12 Hours) Vital Signs Temp Pulse Pulse Pulse Resp BP Pulse Ox 11/12/18 04:09 36.5 C 60 18 138/82 97 11/11/18 23:26 67 11/11/18 23:19 36.6 C 61 18 131/79 98 11/11/18 19:05 36.6 C 92 H 19 124/74 91 Resident Activity Tracking Resident Involvement: Resident Care Provided Care Provided: Adult Hospital Medicine
[2018-11-12] MEDS: LEVOTHYROXINE SODIUM 100 MCG TABLET PO SCH (06:20)
[2018-11-12 07:06] LABS: Basophils # (auto) 0.07 K/uL (0-0.2); Basophils % (auto) 0.9 %; Eosinophils # (auto) 0.28 K/uL (0-0.5); Eosinophils % (auto) 3.5 %; Hematocrit (blood only) 30.8 % (42-52); Immature Granulocytes # (auto) 0.07 K/uL (0.00-0.02); Immature Granulocytes % (auto) 0.9 %; Lymphocytes # (auto) 1.41 K/uL (1.2-3.4); Lymphocytes % (auto) 17.8 %; Mean Corpuscular Hgb Conc 32.5 g/dL (32-36); Mean Corpuscular Volume 87.7 fL (80-100); Mean Platelet Volume 9.3 fL (7.4-10.4); Monocytes # (auto) 0.82 K/uL (0.11-0.59); Monocytes % (auto) 10.4 %; Neutrophils # (auto) 5.27 K/uL (1.4-6.5); Neutrophils % (auto) 66.5 %; Platelet Count 206 K/uL (130-400); RDW Coefficient of Variation 16.7 % (11.5-14.5); RDW Standard Deviation 53.5 fL (36.4-46.3); Red Blood Count 3.51 M/uL (4.7-6.1); White Blood Count 7.92 K/uL (4.8-10.8)
[2018-11-12 08:02] LABS: Albumin Level 2.7 gm/dl (3.4-5.0); BUN Creatinine Ratio 20.1 (10-20); Calcium 9.1 mg/dl (8.5-10.1); Creatinine Clr Calc Pharmacy 12.9 ml/min; Est GFR (African American) 10.8; Est GFR (Non-African American) 9.3; Phosphorus 4.3 mg/dl (2.5-4.9); Potassium 4.6 mmol/L (3.5-5.1)
[2018-11-12] MEDS: BUMETANIDE 1 MG TAB PO SCH ×2 (08:53→17:26)
[2018-11-12] MEDS: ASPIRIN 81 MG ECTAB PO SCH (08:54)
[2018-11-12] MEDS: DOCUSATE SODIUM 100 MG CAP PO SCH ×2 (08:54→17:27)
[2018-11-12] MEDS: METOPROLOL SUCC 50MG EXT REL TAB PO SCH (08:54)
[2018-11-12] MEDS: GABAPENTIN 300 MG CAP PO SCH (08:54)
[2018-11-12] MEDS: CALCIUM 600MG + VIT D 400 IU TAB PO SCH (08:54)
[2018-11-12] MEDS: cephALEXin 250 MG CAP PO SCH (08:54)
[2018-11-12] MEDS: APIXABAN 2.5 MG TAB PO SCH ×2 (08:54→17:27)
[2018-11-12] MEDS: INSULIN ASPART 100 UNITS/ML 3 ML PEN SC SCH ×4 (08:58→20:15)
[2018-11-12] MEDS ORDERED: INSULIN HUMAN NPH SC SCH ×2 (09:00)
--- NOTE | 2018-11-12 10:29 | Nephrology Progress Note ---
Date of Service November 12, 2018 Assessment & Plan (1) TASHA (acute kidney injury): -- Creatinine stable at 5.3 mg/dL -- Non-oliguric -- Electrolytes acceptable -- Suspect rise in creatinine maybe associated with progression of CKD (2) Stage 5 chronic kidney disease: -- No absolute indication to start dialysis at this time: electrolytes acceptable and volume status appropriate -- Patient will likely benefit from [employer]ODUCTION [employer]ODUCTION [employer] in the near future -- Unfortunately, AVF has not matured for appropriate use -- AVF was placed in July by Dr. Acosta -- Dr. Ly at [facility] performed fistulogram and venoplasty of the L subclavian vein on 11/07 -- L arm edema has been attributed in part to increased venous pressures associated with pacer wires -- Unfortunately, I do not believe that we have a surgeon at [facility] to place an HD permcath -- I do not feel strongly that Lance's mental status will improve with dialysis but we need a plan for moving -- I will have the dialysis nurse re-evaluate the AVF today -- If AVF does not mature, the patient will likely need the fistula ligated and a new AVF placed -- I would suggest that the compression stocking be removed from the arm, the arm should be kept elevated to assist with edema, Lance should be provided an exercise ball to help with maturation (3) Hyperkalemia: -- Low K diet -- Improved with medical management -- Tolerating loop diuretic therapy (4) Acute confusion: -- Azotemic but not clearly uremic -- Baseline mental status unknown to me (5) Left arm swelling: (6) Secondary hyperparathyroidism of renal origin: -- Calcitriol 0.25 mcg QMEF (7) Anemia: -- Venofer 200 mg daily x 5 doses ordered for DILCIA (8) Atrial fibrillation: -- Elquis dose appropriate for kidney dysfunction (9) Pacemaker: (10) Diabetic ulcer of toe of right foot associated with type 2 diabetes mellitus: -- Remains on Keflex Subjective Lance was sitting comfortably in his bedside chair this morning. He did not recall why he was in the hospital. When I asked about his kidney function, he told me that he is planning to start dialysis. He is oriented to person. He was not able to tell me the day, month, or year. He was able to tell me that he is in the hospital but could not recall the name of the hospital. I asked Lance where he lives and he told me, "put me on a bus and send me that way." He ate ~50% of his breakfast. He states that his appetite is good and he denies GI symptoms. Lance denies dyspnea or pain. He denies fevers or chills. He has a compression sleeve on his left arm. There is an IV in the left arm. The legs are wrapped. Review of Systems Review of Systems: All systems reviewed & are unremarkable except as noted in HPI & below Physical Exam Constitutional: well developed and + obese; no acute distress Eyes: no scleral abnormality and no corneal abnormality ENMT: Mouth: no oral mucosal abnormality and oral mucous membranes not dry Neck: normal visual inspection and trachea midline Respiratory: normal respiratory effort Auscultation: lungs clear to auscultation bilaterally and + rales (few basilar) Cardiovascular: RRR, no murmur, no edema Extremities: + pedal edema (b/l LE wrapped in dressing) and + AV fistula (Left brachiocephalic AV fistula with thrill and bruit, some edema) Gastrointestinal (Abdomen): Inspection/Auscultation: + abdomen distended Percussion/Palpation: abdomen soft; abdomen nontender Musculoskeletal: Extremities: no cyanosis and no clubbing Skin: no rashes Neurologic: Motor/Sensory: no tremor and no asterixis Psychiatric: slightly confused: able to recall Dr. Bah. Not able to recall Dr. Patel. Not aware of the reason for hospitalization. Not clearly oriented to place or time (this is different from A&Ox3 documentation noted yestserday). Baseline is unclear to me. Results & Data Vital Signs (Past 12 Hours) Vital Signs Temp Pulse Pulse Pulse Resp BP Pulse Ox 11/12/18 08:00 60 11/12/18 07:42 36.3 C L 63 20 147/81 H 94 11/12/18 04:09 36.5 C 60 18 138/82 97 11/11/18 23:26 67 11/11/18 23:19 36.6 C 61 18 131/79 98 Laboratory Results Laboratory Results - last 24 hr 11/11/18 11/11/18 11/11/18 12:15 16:18 20:10 WBC RBC Hgb Hct MCV MCH MCHC RDW Std Deviation RDW Coeff of Virginie Plt Count MPV Immature Gran % (Auto) Neut % (Auto) Lymph % (Auto) [place] % (Auto) Eos % (Auto) Baso % (Auto) Immature Gran # (Auto) Neut # (Auto) Lymph # (Auto) [place] # (Auto) Eos # (Auto) Baso # (Auto) Sodium Potassium Chloride Carbon Dioxide Anion Gap BUN Creatinine Est Cr Clr Drug Dosing Est GFR ( Amer) Est GFR (Non-Af Amer) BUN/Creatinine Ratio Glucose POC Glucose 208 H 152 H 169 H Calcium Phosphorus Albumin 11/12/18 11/12/18 11/12/18 06:54 06:54 07:54 WBC 7.92 RBC 3.51 L Hgb 10.0 L Hct 30.8 L MCV 87.7 MCH 28.5 MCHC 32.5 RDW Std Deviation 53.5 H RDW Coeff of Virginie 16.7 H Plt Count 206 MPV 9.3 Immature Gran % (Auto) 0.9 Neut % (Auto) 66.5 Lymph % (Auto) 17.8 [place] % (Auto) 10.4 Eos % (Auto) 3.5 Baso % (Auto) 0.9 Immature Gran # (Auto) 0.07 H Neut # (Auto) 5.27 Lymph # (Auto) 1.41 [place] # (Auto) 0.82 H Eos # (Auto) 0.28 Baso # (Auto) 0.07 Sodium 137 Potassium 4.6 Chloride 102 Carbon Dioxide 25 Anion Gap 10.0 BUN 108 H Creatinine 5.30 H* Est Cr Clr Drug Dosing 12.9 Est GFR ( Amer) 10.8 Est GFR (Non-Af Amer) 9.3 BUN/Creatinine Ratio 20.1 H Glucose 133 H POC Glucose 143 H Calcium 9.1 Phosphorus 4.3 Albumin 2.7 L
[2018-11-12] MEDS: IRON SUCROSE 200 MG in 0.9 % SODIUM CHLORIDE 100 ML IV SCH (12:02)
--- NOTE | 2018-11-12 14:24 | Hospitalist Progress Note ---
Date of Service November 12, 2018 Assessment & Plan (1) Altered mental status: Acute metabolic encephalopathy with somnolence, confusion worsening over the 1 to 2 weeks prior to admission. Likely secondary to uremia and infection of the legs. CT head negative Now moderately improved which may be a reflection of treating the leg wound infections as below Obviously, some of his alteration is due to uremia and worsening renal function -renal function stable and continues to be making urine-no urgent dialysis needed today -Delirium prevention strategies -Treating infection as below (2) Chronic kidney failure: CKD stage 5 with acute kidney injury superimposed-renal function continues to be stable today, continues to make urine Is azotemic and likely uremic, with encephalopathy as above -Nephrology consultation appreciated-no dialysis at this time, but will continue to follow through the weekend-dialysis nurse to assess his AV fistula today to see if usable-if not, need to make plans to transfer somewhere for permanent dialysis catheter placement as no vascular surgery is available at this time here -If dialysis is needed emergently, critical care doctor could place temporary dialysis catheter --Avoid nephrotoxic agents. Renal dosing where appropriate -Holding lisinopril -Continue Bumex to encourage urine output Follow daily BMP -has AV fistula in left upper extremity that should be mature in the next few weeks -Started on calcitriol by nephrology (3) Infected wound: Bilateral LE wounds, dressings changed on 11/11 by wound care He basically has denuded skin for a large portion of the anterior right tibia according to wound pictures, and a wound in the left distal tibia medially as well as a toe wound Afebrile here Wound care nurse says that the legs look improved from previous Left leg wound is growing Proteus-pansensitive Right wound culture is growing MSSA -Received daptomycin and Zosyn for broad-spectrum coverage, then switched to Keflex renally dosed on 11/11 -Wound care consult appreciated -Continue tramadol and Tylenol as needed for pain in the legs (4) Left arm swelling: s/p fistula placement with subsequent fistulogram and revision at [facility]. AV fistula has good thrill on examination -Elevate with pillow and nephrology today recommends removal of compression wrap which was placed for upper extremity edema previously (5) Ischemic dilated cardiomyopathy: Patient appears euvolemic -Continue home medications with Bumex, metoprolol succinate 200 mg once daily -DC'd lisinopril due to acute kidney injury (6) Hypertension: Stable, chronic, mildly elevated here -Continue home medications of metoprolol succinate, Bumex -Holding lisinopril due to acute kidney injury -Consider adding amlodipine or hydralazine as needed for better blood pressure control (7) Hypercholesterolemia: Chronic, stable -Continue Lipitor (8) Diabetes mellitus type 2, insulin dependent: Hemoglobin A1c 7.1% [id number] as an outpatient With persistent severe morning hypoglycemia into the 40s-50s for the first 2 days of admission, secondary to significantly high doses of insulin in the setting of acute kidney injury Hypoglycemia may have also been contributing to his mental status changes at home Hypoglycemia is finally improving today without any long-acting insulin for several days. He is receiving NovoLog with meals and at bedtime Holding all insulin from home -Continue sliding scale insulin only right now unless blood sugar greater than 200-we will give NPH 10 units in the evening and 10 units in the morning if blood sugar greater than 140 -Caution with long-acting insulin at this time -Continue gabapentin 300 mg once daily for neuropathy (9) Coronary artery disease: Stable. Chronic. No CP, history of ischemic cardiomyopathy, CABG -Continue Metoprolol, ASA -Continue Lipitor (10) Atrial fibrillation: -Continue Eliquis for anticoagulation-would hold if is going to have temporary dialysis catheter placed Continue Metoprolol -He is mostly in paced rhythm on telemetry (11) Hemorrhoid: Preparation H-no longer complaining of pain from this (12) GERD (gastroesophageal reflux disease): Continue ranitidine (13) Hypothyroid: TSH normal here at 2.7 Continue Synthroid (14) Hyperkalemia: Potassium 5.6 on admission and now improved and stable -Continue low potassium diet -Follow lytes carefully -No need for urgent dialysis at this time (15) Pacemaker: Noted, paced rhythm on telemetry (16) Anemia: Anemia of chronic renal disease, hemoglobin stable at 10.0 -Iron studies show significant iron deficiency with ferritin 35, serum iron 32, iron saturation 9% -Started IV Venofer as per nephrology every 2 days with first dose on 11/10 (17) DVT prophylaxis: Eliquis, has compression wraps on legs Disposition-remain hospitalized likely through the weekend to continue to closely monitor his renal function and possible transition to starting hemodialysis PT/OT consults placed Will likely need rehab placement versus transfer to another outside facility for permanent dialysis catheter placement Subjective Patient is complaint of feeling like air is flowing in his right ear. Otherwise denies shortness of breath or chest pain. Family reports he did eat his whole hamburger last night, but not eating as much today. He denies abdominal pain or leg pain. Telemetry with paced rhythm with rates in the 60s Review of Systems Review of Systems: All systems reviewed & are unremarkable except as noted in HPI & below Physical Exam Constitutional: + ill appearing and + obese; no acute distress Eyes: PERRL, conjunctivae normal, anicteric sclerae ENMT: external ear and nose normal, oropharynx normal Ears: + hearing impairment and + EAC abnormality (Right EAC completely occluded with impacted cerumen, left EAC with some cerumen but TM visualized and is normal) Neck: trachea midline, no thyromegaly Respiratory: normal respiratory effort, lungs clear to auscultation Cardiovascular: Rate/Rhythm: regular rate and regular rhythm Extremities: + edema (Trace pitting edema of the feet, compression wraps in place to the knees and not removed) and + AV fistula (Left brachiocephalic with palpable thrill) Gastrointestinal (Abdomen): normal bowel sounds, soft, nontender, no hepatosplenomegaly Musculoskeletal: Extremities: no cyanosis and no clubbing Skin: no rashes, warm and dry Neurologic: moves all extremities and awake; no focal motor deficits Psychiatric: Orientation: alert, oriented to person, oriented to place and cooperative Results & Data Vital Signs (Past 12 Hours) Vital Signs Temp Pulse Pulse Pulse Resp BP Pulse Ox 11/12/18 11:00 36.4 C L 62 20 160/79 H 99 11/12/18 08:00 60 11/12/18 07:42 36.3 C L 63 20 147/81 H 94 11/12/18 04:09 36.5 C 60 18 138/82 97 Laboratory Results 11/12/18 11/12/18 11/12/18 Range/Units 12:05 07:54 06:54 WBC 7.92 (4.8-10.8) K/uL RBC 3.51 L (4.7-6.1) M/uL Hgb 10.0 L (14.0-18.0) g/dL Hct 30.8 L (42-52) % MCV 87.7 (80-100) fL MCH 28.5 (25-34) pg MCHC 32.5 (32-36) g/dL RDW Std Deviation 53.5 H (36.4-46.3) fL RDW Coeff of Virginie 16.7 H (11.5-14.5) % Plt Count 206 (130-400) K/uL MPV 9.3 (7.4-10.4) fL Immature Gran % (Auto) 0.9 % Neut % (Auto) 66.5 % Lymph % (Auto) 17.8 % [place] % (Auto) 10.4 % Eos % (Auto) 3.5 % Baso % (Auto) 0.9 % Immature Gran # (Auto) 0.07 H (0.00-0.02) K/uL Neut # (Auto) 5.27 (1.4-6.5) K/uL Lymph # (Auto) 1.41 (1.2-3.4) K/uL [place] # (Auto) 0.82 H (0.11-0.59) K/uL Eos # (Auto) 0.28 (0-0.5) K/uL Baso # (Auto) 0.07 (0-0.2) K/uL Sodium (136-145) mmol/L Potassium (3.5-5.1) mmol/L Chloride (98-107) mmol/L Carbon Dioxide (21-32) mmol/L Anion Gap (3-11) BUN (7-18) mg/dl Creatinine (0.6-1.4) mg/dl Est Cr Clr Drug Dosing ml/min Est GFR ( Amer) Est GFR (Non-Af Amer) BUN/Creatinine Ratio (10-20) Glucose (70-99) mg/dl POC Glucose 164 H 143 H (70-99) Calcium (8.5-10.1) mg/dl Phosphorus (2.5-4.9) mg/dl Albumin (3.4-5.0) gm/dl 11/12/18 11/11/18 11/11/18 Range/Units 06:54 20:10 16:18 WBC (4.8-10.8) K/uL RBC (4.7-6.1) M/uL Hgb (14.0-18.0) g/dL Hct (42-52) % MCV (80-100) fL MCH (25-34) pg MCHC (32-36) g/dL RDW Std Deviation (36.4-46.3) fL RDW Coeff of Virginie (11.5-14.5) % Plt Count (130-400) K/uL MPV (7.4-10.4) fL Immature Gran % (Auto) % Neut % (Auto) % Lymph % (Auto) % [place] % (Auto) % Eos % (Auto) % Baso % (Auto) % Immature Gran # (Auto) (0.00-0.02) K/uL Neut # (Auto) (1.4-6.5) K/uL Lymph # (Auto) (1.2-3.4) K/uL [place] # (Auto) (0.11-0.59) K/uL Eos # (Auto) (0-0.5) K/uL Baso # (Auto) (0-0.2) K/uL Sodium 137 (136-145) mmol/L Potassium 4.6 (3.5-5.1) mmol/L Chloride 102 (98-107) mmol/L Carbon Dioxide 25 (21-32) mmol/L Anion Gap 10.0 (3-11) BUN 108 H (7-18) mg/dl Creatinine 5.30 H* (0.6-1.4) mg/dl Est Cr Clr Drug Dosing 12.9 ml/min Est GFR ( Amer) 10.8 Est GFR (Non-Af Amer) 9.3 BUN/Creatinine Ratio 20.1 H (10-20) Glucose 133 H (70-99) mg/dl POC Glucose 169 H 152 H (70-99) Calcium 9.1 (8.5-10.1) mg/dl Phosphorus 4.3 (2.5-4.9) mg/dl Albumin 2.7 L (3.4-5.0) gm/dl (1) Altered mental status Altered mental status type: unspecified Qualified Code(s): R41.82 - Altered mental status, unspecified (2) Chronic kidney failure Chronic kidney disease stage: unspecified stage Qualified Code(s): N18.9 - Chronic kidney disease, unspecified
[2018-11-12] MEDS: CARBAMIDE PEROXIDE 6.5% 15 ML BTL OT SCH (17:25)
[2018-11-12] MEDS: ATORVASTATIN 40 MG TAB PO SCH (17:26)
[2018-11-13] MEDS: LEVOTHYROXINE SODIUM 100 MCG TABLET PO SCH (06:08)
[2018-11-13 07:23] LABS: Albumin Level 2.7 gm/dl (3.4-5.0); BUN Creatinine Ratio 20.8 (10-20); Calcium 9.1 mg/dl (8.5-10.1); Creatinine Clr Calc Pharmacy 13.7 ml/min; Est GFR (African American) 11.7; Est GFR (Non-African American) 10.1; Phosphorus 4.4 mg/dl (2.5-4.9); Potassium 4.3 mmol/L (3.5-5.1)
[2018-11-13] MEDS: GABAPENTIN 300 MG CAP PO SCH (08:40)
[2018-11-13] MEDS: BUMETANIDE 1 MG TAB PO SCH ×2 (08:40→17:17)
[2018-11-13] MEDS: DOCUSATE SODIUM 100 MG CAP PO SCH ×2 (08:40→17:17)
[2018-11-13] MEDS: APIXABAN 2.5 MG TAB PO SCH ×2 (08:40→17:18)
[2018-11-13] MEDS: METOPROLOL SUCC 50MG EXT REL TAB PO SCH (08:40)
[2018-11-13] MEDS: CARBAMIDE PEROXIDE 6.5% 15 ML BTL OT SCH (08:41)
[2018-11-13] MEDS: ASPIRIN 81 MG ECTAB PO SCH (08:41)
[2018-11-13] MEDS: CALCIUM 600MG + VIT D 400 IU TAB PO SCH (08:41)
[2018-11-13] MEDS: cephALEXin 250 MG CAP PO SCH (08:41)
[2018-11-13] MEDS: INSULIN HUMAN NPH SC SCH ×2 (08:47→17:26)
[2018-11-13] MEDS: INSULIN ASPART 100 UNITS/ML 3 ML PEN SC SCH ×4 (08:49→20:32)
--- NOTE | 2018-11-13 10:40 | Nephrology Progress Note ---
Date of Service November 13, 2018 Assessment & Plan (1) TASHA (acute kidney injury): -- Creatinine stable, significant recovery is not expected -- Non-oliguric -- Electrolytes acceptable -- No emergent need for dialysis (2) Stage 5 chronic kidney disease: -- LUE edema has improved, AVF evaluated by myself and HD nurse yesterday (2nd nurse to evaluate this admission): bruit is good but unfortunately the vessel has not matured to a caliber sufficient for hemodialysis -- At this time, I suggest HD permcath placement be arranged within the next week -- Unfortunately, permcath placement at [facility] is not possible at this time -- Plan of care discussed with Dr. Arrington -- Dr. Ly at [facility] performed fistulogram and venoplasty of the L subclavian vein on 11/07: AVF placed by Dr. Acosta in July -- L arm edema has been attributed in part to increased venous pressures associated with pacer wires -- If AVF does not mature, the patient will likely need the fistula ligated and a new AVF placed: certainly vascular surgery follow up will be necessary in the near future -- The left arm should be kept elevated to assist with edema, Lance should be provided an exercise ball to help with maturation (3) Hyperkalemia: -- Low K diet -- Improved with medical management -- Tolerating loop diuretic therapy (4) Acute confusion: -- Azotemic but not clearly uremic -- Baseline mental status unknown to me (5) Left arm swelling: (6) Secondary hyperparathyroidism of renal origin: -- Calcitriol 0.25 mcg QMWF (7) Anemia: -- Venofer 200 mg daily x 5 doses ordered for DILCIA (8) Atrial fibrillation: -- Elquis dose appropriate for kidney dysfunction (9) Pacemaker: (10) Diabetic ulcer of toe of right foot associated with type 2 diabetes mellitus: -- Remains on Keflex Subjective Lance was sitting comfortably in his bedside chair this morning. He did tell me that he is in the hospital because of "not thinking clearly." When I asked about his kidney function, he told me that he is planning to start dialysis. However, he could not recall any specifics of what dialysis is. He is oriented to person. He again was not able to tell me the day, month, or year. Appetite remains fair. Lance denies dyspnea or pain. He denies fevers or chills. He has a compression sleeve on his left arm. There is an IV in the left arm. The legs are wrapped. Review of Systems Review of Systems: All systems reviewed & are unremarkable except as noted in HPI & below Physical Exam Constitutional: well developed and + obese; no acute distress Eyes: no scleral abnormality and no corneal abnormality ENMT: Mouth: no oral mucosal abnormality and oral mucous membranes not dry Neck: normal visual inspection and trachea midline Respiratory: normal respiratory effort Auscultation: lungs clear to auscultation bilaterally Cardiovascular: RRR, no murmur, no edema Extremities: + pedal edema (b/l LE wrapped in dressing) and + AV fistula (Left brachiocephalic AV fistula with thrill and bruit, some edema) Gastrointestinal (Abdomen): Inspection/Auscultation: + abdomen distended Percussion/Palpation: abdomen soft; abdomen nontender Musculoskeletal: Extremities: no cyanosis and no clubbing Skin: no rashes Neurologic: Motor/Sensory: no tremor and no asterixis Psychiatric: Apperance: appropriately groomed Results & Data Vital Signs (Past 12 Hours) Vital Signs Temp Pulse Pulse Resp BP Pulse Ox 11/13/18 08:53 36.4 C L 60 16 152/69 H 98 11/13/18 04:40 36.4 C L 60 18 133/73 99 11/12/18 23:47 36.4 C L 60 20 147/82 H 98 11/12/18 23:22 60 Laboratory Results Laboratory Results - last 24 hr 11/12/18 11/12/18 11/12/18 12:05 16:55 20:11 Sodium Potassium Chloride Carbon Dioxide Anion Gap BUN Creatinine Est Cr Clr Drug Dosing Est GFR ( Amer) Est GFR (Non-Af Amer) BUN/Creatinine Ratio Glucose POC Glucose 164 H 173 H 176 H Calcium Phosphorus Albumin 11/13/18 11/13/18 06:26 07:52 Sodium 136 Potassium 4.3 Chloride 100 Carbon Dioxide 26 Anion Gap 10.0 BUN 103 H Creatinine 4.96 H* D Est Cr Clr Drug Dosing 13.7 Est GFR ( Amer) 11.7 Est GFR (Non-Af Amer) 10.1 BUN/Creatinine Ratio 20.8 H Glucose 162 H POC Glucose 180 H Calcium 9.1 Phosphorus 4.4 Albumin 2.7 L
--- NOTE | 2018-11-13 14:55 | Pharmacy Report ---
Pharmacy Glycemic Short Note 2 - Date of Service November 13, 2018 - Glycemic Short BSG Results (Last 24 hours): 11/12/18 11/12/18 11/13/18 16:55 20:11 06:26 Glucose 162 H POC Glucose 173 H 176 H 11/13/18 11/13/18 07:52 11:40 Glucose POC Glucose 180 H 281 H OUTPATIENT ANTIDIABETIC REGIMEN: * Novolin 70/30 - 90 units with breakfast and dinner; 19 units with lunch * Total daily outpatient dose: 199 units/day ASSESSMENT: * Patient has been receiving significantly reduced outpatient insulin dosing for admission. Pt uses ~200 units of insulin per day at home and has been only requiring ~ 20 units/day for admission. BSGs starting to trend upwards now as insulin has been held/reduced. Will continue to titrate upwards conservatively. * AM fasting BSG = 180 mg/dl -> will increase AM NPH slightly and add conservative PM scale of NPH as pt takes NPH 3x daily at home (increasing to BID today) * Post-prandial BSGs elevated @ 281mg/dl --> will tighten CR PLAN FOR INPATIENT GLYCEMIC CONTROL: * Basal insulin - increase * Increase AM NPH from 13 units to 16 units * Add PM dose of NPH - dose based on BSG * BSG below 140 mg/dl --> 0 units * BSG 140-180mg/dl --> 10 units * BSG above 180mg/dl --> 15 units * Bolus insulin: tighten CR * NovoLog per scale ACHS or Q6hrs while NPO * Goal Range: Low 120 mg/dL - High 160 mg/dL * Correction Factor: 30 mg/dL/unit * Nutritional / Prandial insulin per carb ratio of 1 unit per 6 grams CHO consumed PLAN FOR DISCHARGE: * [place] with [facility] [place]. Patient can continue to have insulin titrated by their office, but I would recommend a significant dose reduction upon discharge.
--- NOTE | 2018-11-13 16:47 | Hospitalist Progress Note ---
Date of Service November 13, 2018 Assessment & Plan (1) Altered mental status: Acute metabolic encephalopathy with somnolence, confusion worsening over the 1 to 2 weeks prior to admission but overall gradual decline in mentation over 6 months as per . Likely secondary to uremia and infection of the legs contributing CT head negative Now mild-moderately improved which may be a reflection of treating the leg wound infections as below Some of his AMS is due to uremia and worsening renal function -renal function stable now for several days and continues to be making urine-no urgent dialysis needed today -Delirium prevention strategies -continue treating infection as below (2) Chronic kidney failure: CKD stage 5 with acute kidney injury superimposed-renal function continues to be stable today, continues to make urine Is azotemic and likely uremic, with encephalopathy as above -Nephrology consultation appreciated-no dialysis at this time, but will continue to follow through the weekend His LUE edema has improved, AVF evaluated by Nephrology and HD nurse and report that the bruit is good but the vessel has not matured to a caliber sufficient for hemodialysis -needs HD permcath placement be arranged within the next week as an outpatient as Vascular Surgery not available here at this time -- Dr. Ly at [facility] [place] performed fistulogram and venoplasty of the L subclavian vein on 11/07: AVF placed by Dr. Acosta in July -- L arm edema has been attributed in part to increased venous pressures associated with pacer wires -- If AVF does not mature, the patient will likely need the fistula ligated and a new AVF placed: certainly vascular surgery follow up will be necessary in the near future -- The left arm should be kept elevated to assist with edema,Nephro recommends an exercise ball to help with maturation-ordered --Avoid nephrotoxic agents. Renal dosing where appropriate -continue holding lisinopril -Continue Bumex to encourage urine output -Follow daily BMP -Started on calcitriol by nephrology (3) Infected wound: Bilateral LE wounds, dressings changed on 11/11 by wound care and reported as stable from previous, with granulation tissue, no surrounding erythema, with serous drainage He basically has denuded skin for a large portion of the anterior right tibia according to wound pictures, and a wound in the left distal tibia medially as well as a toe wound Remains afebrile here Wound care nurse says that the legs look improved from previous Left leg wound is growing Proteus-pansensitive Right wound culture is growing MSSA -Received daptomycin and Zosyn for broad-spectrum coverage, then switched to Keflex renally dosed on 11/11-would continue for total 10 days-last dose 11/18/18 -Wound care consult appreciated-recommends ONLY [employer] change dressings/compression wraps and dressings on leg wounds 2-3x/week -Continue tramadol and Tylenol as needed for pain in the legs (4) Left arm swelling: s/p fistula placement with subsequent fistulogram and revision at [facility] [place]. AV fistula has good thrill on examination Edema is improved from previous Is secondary increased venous pressures associated with pacer wires -Elevate with pillow (5) Ischemic dilated cardiomyopathy: Patient appears euvolemic -Continue home medications with Bumex, metoprolol succinate 200 mg once daily -DC'd lisinopril due to acute kidney injury (6) Hypertension: BPs improved today -Continue home medications of metoprolol succinate, Bumex -Holding lisinopril due to acute kidney injury (7) Hypercholesterolemia: Chronic, stable -Continue Lipitor (8) Diabetes mellitus type 2, insulin dependent: Hemoglobin A1c 7.1% [id number] as an outpatient With persistent severe morning hypoglycemia into the 40s-50s for the first 2 days of admission, secondary to significantly high doses of insulin in the setting of acute kidney injury Hypoglycemia may have also been contributing to his mental status changes at home Hypoglycemia now resolved after not getting long-acting insulin for several days. Now developing hyperglycemia Holding all insulin from home (NPH 90/19/90 units) Pharmacy managing--> added on NPH 16 units AM and sliding scale NPH at bedtime, continue SSI -Continue gabapentin 300 mg once daily for neuropathy (9) Coronary artery disease: Stable. Chronic. No CP, history of ischemic cardiomyopathy, CABG -Continue Metoprolol, ASA -Continue Lipitor (10) Atrial fibrillation: -Continue Eliquis for anticoagulation-would hold for at least 24 hours prior if is going to have dialysis catheter placed Continue Metoprolol -He is mostly in paced rhythm on telemetry (11) Hemorrhoid: Preparation H-no longer complaining of pain from this (12) GERD (gastroesophageal reflux disease): Continue ranitidine (13) Hypothyroid: TSH normal here at 2.7 Continue Synthroid (14) Hyperkalemia: Potassium 5.6 on admission and now improved and stable -Continue low potassium diet -Follow lytes carefully -No need for urgent dialysis at this time (15) Pacemaker: Noted, paced rhythm on telemetry (16) Anemia: Anemia of chronic renal disease, hemoglobin stable at 10.0 -Iron studies show significant iron deficiency with ferritin 35, serum iron 32, iron saturation 9% -Started IV Venofer as per nephrology every 2 days with first dose on 11/10-now s/p receiving 2 doses (17) DVT prophylaxis: Bob, has compression wraps on legs Disposition-remain hospitalized likely through the weekend to continue to closely monitor his renal function and possible transition to starting hemodialysis PT/OT consults placed Will likely need rehab placement on Wednesday if insurance auth approved--> will then need close outpt f/u of renal function and arrangements for Perm cath placement as outpt perhaps at [place] or [facility] Pt had to be shaken gently and with loud verbal stimulus to get him to wake up today. After he woke, he continued to be fairly confused and was not answering questions appropriately. His family apparently left early today because he was confused and it was upsetting to them. He was incontinent of large amount of urine on the floor last night as per RN notes. Continues to set off bed alarm by trying ot get out of bed without ringing for RN. Denies pain in legs Tele with paced rhythm, rates in the 60s Review of Systems Review of Systems: Unobtainable due to cognitive status Physical Exam Constitutional: + ill appearing, + obese and + lethargic; no acute distress Eyes: + anicteric sclerae ENMT: Ears: + hearing impairment Neck: trachea midline, no thyromegaly Respiratory: normal respiratory effort, lungs clear to auscultation Cardiovascular: Rate/Rhythm: regular rate and regular rhythm Extremities: + edema (Trace pitting edema of the feet, compression wraps in place to the knees and not removed) and + AV fistula (Left brachiocephalic with palpable thrill) Gastrointestinal (Abdomen): normal bowel sounds, soft, nontender, no hep atosplenomegaly Musculoskeletal: Extremities: no cyanosis and no clubbing Skin: no rashes, warm and dry Neurologic: moves all extremities Psychiatric: Eye Contact: + fair eye contact Results & Data Vital Signs (Past 12 Hours) Vital Signs Temp Pulse Resp BP Pulse Ox 11/13/18 15:57 36.6 C 61 20 101/54 L 98 11/13/18 08:53 36.4 C L 60 16 152/69 H 98 Laboratory Results 11/13/18 11/13/18 11/13/18 Range/Units 20:15 16:59 11:40 Sodium (136-145) mmol/L Potassium (3.5-5.1) mmol/L Chloride (98-107) mmol/L Carbon Dioxide (21-32) mmol/L Anion Gap (3-11) BUN (7-18) mg/dl Creatinine (0.6-1.4) mg/dl Est Cr Clr Drug Dosing ml/min Est GFR ( Amer) Est GFR (Non-Af Amer) BUN/Creatinine Ratio (10-20) Glucose (70-99) mg/dl POC Glucose 276 H 230 H 281 H (70-99) Calcium (8.5-10.1) mg/dl Phosphorus (2.5-4.9) mg/dl Albumin (3.4-5.0) gm/dl 11/13/18 11/13/18 Range/Units 07:52 06:26 Sodium 136 (136-145) mmol/L Potassium 4.3 (3.5-5.1) mmol/L Chloride 100 (98-107) mmol/L Carbon Dioxide 26 (21-32) mmol/L Anion Gap 10.0 (3-11) BUN 103 H (7-18) mg/dl Creatinine 4.96 H* D (0.6-1.4) mg/dl Est Cr Clr Drug Dosing 13.7 ml/min Est GFR ( Amer) 11.7 Est GFR (Non-Af Amer) 10.1 BUN/Creatinine Ratio 20.8 H (10-20) Glucose 162 H (70-99) mg/dl POC Glucose 180 H (70-99) Calcium 9.1 (8.5-10.1) mg/dl Phosphorus 4.4 (2.5-4.9) mg/dl Albumin 2.7 L (3.4-5.0) gm/dl (1) Altered mental status Altered mental status type: unspecified Qualified Code(s): R41.82 - Altered mental status, unspecified (2) Chronic kidney failure Chronic kidney disease stage: unspecified stage Qualified Code(s): N18.9 - Chronic kidney disease, unspecified
[2018-11-13] MEDS: ATORVASTATIN 40 MG TAB PO SCH (17:17)
[2018-11-14] MEDS: LEVOTHYROXINE SODIUM 100 MCG TABLET PO SCH (06:16)
[2018-11-14 06:31] LABS: Albumin Level 2.6 gm/dl (3.4-5.0); BUN Creatinine Ratio 23.7 (10-20); Calcium 8.8 mg/dl (8.5-10.1); Creatinine Clr Calc Pharmacy 14.5 ml/min; Est GFR (African American) 12.5; Est GFR (Non-African American) 10.7; Phosphorus 4.1 mg/dl (2.5-4.9); Potassium 4.1 mmol/L (3.5-5.1)
[2018-11-14] MEDS: METOPROLOL SUCC 50MG EXT REL TAB PO SCH (08:16)
[2018-11-14] MEDS: cephALEXin 250 MG CAP PO SCH (08:16)
[2018-11-14] MEDS: GABAPENTIN 300 MG CAP PO SCH (08:17)
[2018-11-14] MEDS: DOCUSATE SODIUM 100 MG CAP PO SCH ×2 (08:17→17:23)
[2018-11-14] MEDS: BUMETANIDE 1 MG TAB PO SCH ×2 (08:17→17:23)
[2018-11-14] MEDS: CARBAMIDE PEROXIDE 6.5% 15 ML BTL OT SCH (08:18)
[2018-11-14] MEDS: CALCIUM 600MG + VIT D 400 IU TAB PO SCH (08:19)
[2018-11-14] MEDS: CALCITRIOL 0.25 MCG CAPSULE PO SCH (08:19)
[2018-11-14] MEDS: APIXABAN 2.5 MG TAB PO SCH ×2 (08:19→17:24)
[2018-11-14] MEDS: INSULIN ASPART 100 UNITS/ML 3 ML PEN SC SCH ×5 (08:21→21:30)
[2018-11-14] MEDS: INSULIN HUMAN NPH SC SCH ×2 (08:21→17:21)
[2018-11-14] MEDS: ASPIRIN 81 MG ECTAB PO SCH (08:25)
--- NOTE | 2018-11-14 09:07 | Pharmacy Report ---
Pharmacy Glycemic Short Note 2 - Date of Service November 14, 2018 - Glycemic Short BSG Results (Last 24 hours): 11/13/18 11/13/18 11/13/18 11:40 16:59 20:15 Glucose POC Glucose 281 H 230 H 276 H 11/14/18 11/14/18 05: 07:40 Glucose 134 H POC Glucose 151 H OUTPATIENT ANTIDIABETIC REGIMEN: * Novolin 70/30 - 90 units with breakfast and dinner; 19 units with lunch * Total daily outpatient dose: 199 units/day ASSESSMENT: 11/14 * Mr. Holder received 57 units of insulin yesterday (31 of this was basal) * Fasting BSG is much improved with additional basal on board. I'm hesitant to adjust the PM scale of NPH until we get a better idea of true needs. * Postprandial BSGs were increased yesterday; however, CR was just tightened with dinner last night so I would like to see how well this works before adjusting further. Since pre-lunch was elevated at 224 mg/dL today, will tighten CR just slightly. We may eventually see improvement with the higher basal doses on board and this can be backed off. 11/13 * Patient has been receiving significantly reduced outpatient insulin dosing for admission. Pt uses ~200 units of insulin per day at home and has been only requiring ~ 20 units/day for admission. BSGs starting to trend upwards now as insulin has been held/reduced. Will continue to titrate upwards conservatively. * AM fasting BSG = 180 mg/dl -> will increase AM NPH slightly and add conservative PM scale of NPH as pt takes NPH 3x daily at home (increasing to BID today) * Post-prandial BSGs elevated @ 281mg/dl --> will tighten CR PLAN FOR INPATIENT GLYCEMIC CONTROL: * Basal insulin - no change * Continue AM NPH dose of 16 units * Continue PM dose of NPH - dose based on BSG * BSG below 140 mg/dl --> 0 units * BSG 140-180mg/dl --> 10 units * BSG above 180mg/dl --> 15 units * Bolus insulin: tighten CR * NovoLog per scale ACHS or Q6hrs while NPO * Goal Range: Low 120 mg/dL - High 160 mg/dL * Correction Factor: 30 mg/dL/unit * Nutritional / Prandial insulin per carb ratio of 1 unit per 5 grams CHO consumed
--- NOTE | 2018-11-14 10:19 | Nephrology Progress Note ---
Date of Service November 14, 2018 Assessment & Plan (1) TASHA (acute kidney injury): -- Creatinine stable, significant recovery is not expected -- Non-oliguric -- Electrolytes acceptable -- No emergent need for dialysis (2) Stage 5 chronic kidney disease: -- AVF not mature for use -- Lance will require permcath placement while waiting for vascular surgery follow up -- Unfortunately, permcath placement at [facility] is not possible at this time -- The left arm should be kept elevated to assist with edema, Lance should be provided an exercise ball to help with maturation (3) Hyperkalemia: -- Low K diet -- Improved with medical management -- Tolerating loop diuretic therapy (4) Acute confusion: -- Baseline mental status unknown to me but patient remains altered (5) Left arm swelling: (6) Secondary hyperparathyroidism of renal origin: -- Calcitriol 0.25 mcg QMWF (7) Anemia: -- Venofer 200 mg daily x 5 doses ordered for DILCIA (8) Atrial fibrillation: -- Elquis dose appropriate for kidney dysfunction (9) Pacemaker: (10) Diabetic ulcer of toe of right foot associated with type 2 diabetes mellitus: -- Remains on Keflex Subjective Lance is sitting comfortably in his bedside chair this morning. Appetite remains good. Lance remains significantly confused. He denies pain. He denies dyspnea. No fevers or chills. Not oriented to place or time. Lance does not remember me. He does not recall prior discussions regarding hemodialysis. Review of Systems Review of Systems: All systems reviewed & are unremarkable except as noted in HPI & below Physical Exam Constitutional: well developed and + obese; no acute distress Eyes: no scleral abnormality and no corneal abnormality ENMT: Mouth: no oral mucosal abnormality and oral mucous membranes not dry Neck: normal visual inspection and trachea midline Respiratory: normal respiratory effort Auscultation: lungs clear to auscultation bilaterally Cardiovascular: RRR, no murmur, no edema Extremities: + pedal edema (b/l LE wrapped in dressing) and + AV fistula (Left brachiocephalic AV fistula with thrill and bruit, some edema) Gastrointestinal (Abdomen): Inspection/Auscultation: + abdomen distended Percussion/Palpation: abdomen soft; abdomen nontender Musculoskeletal: Extremities: no cyanosis and no clubbing Skin: no rashes Neurologic: Motor/Sensory: no tremor and no asterixis Psychiatric: Cognition: + recent memory not intact Insight: + poor insight Results & Data Vital Signs (Past 12 Hours) Vital Signs Temp Pulse Pulse Resp BP Pulse Ox 11/14/18 07:22 60 11/14/18 04:46 36.6 C 61 18 121/66 98 11/13/18 23:58 36.7 C 62 18 129/71 97 11/13/18 23:36 60 Laboratory Results Laboratory Results - last 24 hr 11/13/18 11/13/18 11/13/18 11:40 16:59 20:15 Sodium Potassium Chloride Carbon Dioxide Anion Gap BUN Creatinine Est Cr Clr Drug Dosing Est GFR ( Amer) Est GFR (Non-Af Amer) BUN/Creatinine Ratio Glucose POC Glucose 281 H 230 H 276 H Calcium Phosphorus Albumin 11/14/18 11/14/18 05:27 07:40 Sodium 137 Potassium 4.1 Chloride 100 Carbon Dioxide 30 Anion Gap 7.0 BUN 112 H Creatinine 4.70 H* Est Cr Clr Drug Dosing 14.5 Est GFR ( Amer) 12.5 Est GFR (Non-Af Amer) 10.7 BUN/Creatinine Ratio 23.7 H Glucose 134 H POC Glucose 151 H Calcium 8.8 Phosphorus 4.1 Albumin 2.6 L
[2018-11-14] MEDS: IRON SUCROSE 200 MG in 0.9 % SODIUM CHLORIDE 100 ML IV SCH (11:16)
--- NOTE | 2018-11-14 12:17 | Hospitalist Progress Note ---
Date of Service November 14, 2018 Assessment & Plan (1) Altered mental status: Confusion worsening over the 1 to 2 weeks prior to admission but overall gradual decline in mentation over 6 months as per . - Likely dementia with possibly some amount secondary to uremia and infection of the legs. - Continue delirium prevention strategies (2) Chronic kidney failure: CKD stage 5 with baseline Cr ~5 and eGFR ~10. - Continues to make urine - Nephrology consultation appreciated - no urgent dialysis at this time, but will need it in medium term. - Plan for outpatient Permacath placement & waiting for AV fistula to mature. - Dr. Ly at [facility] [place] performed fistulogram and venoplasty of the L subclavian vein on 11/07: AVF placed by Dr. Acosta in July - L arm edema has been attributed in part to increased venous pressures associated with pacer wires - If AVF does not mature, the patient will likely need the fistula ligated and a new AVF placed: certainly vascular surgery follow up will be necessary in the near future - The left arm should be kept elevated to assist with edema. Nephro recommends an exercise ball to help with maturation. - Continue Bumex to encourage urine output - Started on calcitriol by nephrology (3) Infected wound: Bilateral LE wounds, dressings changed on 11/11 by wound care and reported as stable from previous, with granulation tissue, no surrounding erythema, with serous drainage. 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 AV fistula has good thrill on examination. - Is secondary increased venous pressures associated with pacer wires. - Elevate with pillow - Improving (5) Ischemic dilated cardiomyopathy: Patient appears euvolemic. - Continue home medications with Bumex, metoprolol succinate 200 mg once daily - Holding lisinopril due to acute kidney injury (6) Hypertension: BPs within acceptable range in the last 24 hours. - Continue home medications of metoprolol succinate, Bumex - Holding lisinopril due to acute kidney injury (7) Hypercholesterolemia: Chronic, stable. - Continue Lipitor (8) Diabetes mellitus type 2, insulin dependent: Hemoglobin A1c 7.1% [id number] as an outpatient. He had persistent severe morning hypoglycemia into the 40s-50s for the first 2 days of admission, secondary to significantly high doses of insulin in the setting of acute kidney injury. Hypoglycemia may have also been contributing to his mental status changes at home. Hypoglycemia now resolved after not getting long-acting insulin for several days. - Holding all insulin from home (NPH 90/19/90 units) - Pharmacy managing--> added on NPH 16 units AM and sliding scale NPH at bedtime, continue SSI. - Continue gabapentin 300 mg once daily for neuropathy (9) Coronary artery disease: Stable. Chronic. No CP, history of ischemic cardiomyopathy, CABG. - Continue Metoprolol, ASA - Continue Lipitor (10) Atrial fibrillation: Permanent. He is mostly in paced rhythm on telemetry. - Continue Eliquis for anticoagulation - would hold for at least 24 hours prior if is going to have dialysis catheter placed - Continue Metoprolol for rate control (11) GERD (gastroesophageal reflux disease): Continue ranitidine (12) Hypothyroid: TSH normal here at 2.7. - Continue Synthroid (13) Pacemaker: Noted, paced rhythm on telemetry (14) Anemia: Anemia of chronic renal disease, hemoglobin stable at 10.0. - Iron studies show significant iron deficiency with ferritin 35, serum iron 32, iron saturation 9% - Started IV Venofer as per nephrology every 2 days with first dose on 11/10-now s/p receiving 2 doses (15) DVT prophylaxis: Bob, has compression wraps on legs. Subjective Feels well today. No complaints. Does not know why he's in the hospital. Review of Systems Review of Systems: All systems reviewed & are unremarkable except as noted in HPI & below Physical Exam Constitutional: WD/WN, vitals as above Eyes: EOM intact bilaterally; no conjunctival abnormality ENMT: external ear and nose normal, oropharynx normal Neck: trachea midline, no thyromegaly normal visual inspection Respiratory: normal respiratory effort, lungs clear to auscultation no respiratory distress Cardiovascular: RRR, no murmur, no edema Gastrointestinal (Abdomen): Inspection/Auscultation: abdomen normal to inspection; abdomen not distended Musculoskeletal: no cyanosis or clubbing, extremities motor strength 5/5 Skin: no rashes, warm and dry Neurologic: moves all extremities and awake Psychiatric: Orientation: alert, oriented to person and cooperative; + not oriented to place and + not oriented to time Results & Data Vital Signs (Past 12 Hours) Vital Signs Temp Pulse Pulse Resp BP Pulse Ox 11/14/18 07:22 60 11/14/18 04:46 36.6 C 61 18 121/66 98 (1) Altered mental status Altered mental status type: unspecified Qualified Code(s): R41.82 - Altered mental status, unspecified (2) Chronic kidney failure Chronic kidney disease stage: unspecified stage Qualified Code(s): N18.9 - Chronic kidney disease, unspecified
[2018-11-14] MEDS: ATORVASTATIN 40 MG TAB PO SCH (17:22)
[2018-11-15] MEDS: LEVOTHYROXINE SODIUM 100 MCG TABLET PO SCH (06:10)
[2018-11-15 06:37] LABS: Albumin Level 2.7 gm/dl (3.4-5.0); BUN Creatinine Ratio 22.1 (10-20); Calcium 9.2 mg/dl (8.5-10.1); Creatinine Clr Calc Pharmacy 13.7 ml/min; Est GFR (African American) 11.8; Est GFR (Non-African American) 10.1; Phosphorus 4.2 mg/dl (2.5-4.9); Potassium 4.2 mmol/L (3.5-5.1)
[2018-11-15] MEDS: INSULIN ASPART 100 UNITS/ML 3 ML PEN SC SCH ×4 (08:15→21:25)
[2018-11-15] MEDS: INSULIN HUMAN NPH SC SCH ×2 (08:16→17:46)
[2018-11-15] MEDS: APIXABAN 2.5 MG TAB PO SCH ×2 (08:19→17:45)
[2018-11-15] MEDS: METOPROLOL SUCC 50MG EXT REL TAB PO SCH (08:19)
[2018-11-15] MEDS: DOCUSATE SODIUM 100 MG CAP PO SCH ×2 (08:19→17:45)
[2018-11-15] MEDS: BUMETANIDE 1 MG TAB PO SCH ×2 (08:19→17:44)
[2018-11-15] MEDS: cephALEXin 250 MG CAP PO SCH (08:19)
[2018-11-15] MEDS: GABAPENTIN 300 MG CAP PO SCH (08:20)
[2018-11-15] MEDS: CARBAMIDE PEROXIDE 6.5% 15 ML BTL OT SCH (08:20)
[2018-11-15] MEDS: ASPIRIN 81 MG ECTAB PO SCH (08:20)
[2018-11-15] MEDS: CALCIUM 600MG + VIT D 400 IU TAB PO SCH (08:20)
[2018-11-15] MEDS ORDERED: INSULIN HUMAN NPH SC ONE (08:30)
--- NOTE | 2018-11-15 10:05 | Nephrology Progress Note ---
Date of Service November 15, 2018 Assessment & Plan (1) TASHA (acute kidney injury): -- Significant renal recovery is not expected -- Non-oliguric -- Electrolytes acceptable (2) Stage 5 chronic kidney disease: -- AVF not mature for use -- Discussed with Dr. Salgado this morning: will try to coordinate tunneled dialysis catheter placement at an outside facility while inpatient -- Once dialysis catheter has been placed, will start hemodialysis (3) Hyperkalemia: -- Low potassium diet (4) Acute confusion: -- Baseline mental status unknown to me but patient remains altered (5) Left arm swelling: (6) Secondary hyperparathyroidism of renal origin: -- Calcitriol 0.25 mcg QMWF (7) Anemia: -- Venofer provided for DILCIA (8) Atrial fibrillation: -- Elquis dose appropriate for kidney dysfunction (9) Pacemaker: (10) Diabetic ulcer of toe of right foot associated with type 2 diabetes mellitus: -- Remains on Keflex Subjective Lance remains confused. He was sleeping when I evaluated him this morning. He denies any pain. No fevers or chills. He is breathing comfortably. Review of Systems Review of Systems: All systems reviewed & are unremarkable except as noted in HPI & below Physical Exam Constitutional: well developed and + obese; no acute distress Eyes: no scleral abnormality and no corneal abnormality ENMT: Mouth: no oral mucosal abnormality and oral mucous membranes not dry Neck: normal visual inspection and trachea midline Respiratory: normal respiratory effort Auscultation: lungs clear to auscultation bilaterally Cardiovascular: RRR, no murmur, no edema Extremities: + pedal edema (b/l LE wrapped in dressing) and + AV fistula (Left brachiocephalic AV fistula with thrill and bruit, some edema) Gastrointestinal (Abdomen): Inspection/Auscultation: + abdomen distended Percussion/Palpation: abdomen soft; abdomen nontender Musculoskeletal: Extremities: no cyanosis and no clubbing Skin: no rashes Neurologic: Motor/Sensory: no tremor and no asterixis Psychiatric: Apperance: appropriately groomed Cognition: + recent memory not intact Insight: + poor insight Results & Data Vital Signs (Past 12 Hours) Vital Signs Temp Pulse Resp BP Pulse Ox 11/15/18 07:37 36.5 C 60 16 134/77 96 11/15/18 04:20 36.8 C 63 20 136/75 97 11/14/18 23:52 36.7 C 59 L 20 99/59 L 99 Laboratory Results Laboratory Results - last 24 hr 11/14/18 11/14/18 11/14/18 11:51 16:35 20:44 Sodium Potassium Chloride Carbon Dioxide Anion Gap BUN Creatinine Est Cr Clr Drug Dosing Est GFR ( Amer) Est GFR (Non-Af Amer) BUN/Creatinine Ratio Glucose POC Glucose 224 H 204 H 233 H Calcium Phosphorus Albumin 11/15/18 11/15/18 05:33 07:50 Sodium 139 Potassium 4.2 Chloride 100 Carbon Dioxide 28 Anion Gap 11.0 BUN 109 H Creatinine 4.93 H* Est Cr Clr Drug Dosing 13.7 Est GFR ( Amer) 11.8 Est GFR (Non-Af Amer) 10.1 BUN/Creatinine Ratio 22.1 H Glucose 200 H POC Glucose 227 H Calcium 9.2 Phosphorus 4.2 Albumin 2.7 L
--- NOTE | 2018-11-15 13:45 | Hospitalist Progress Note ---
Date of Service November 15, 2018 Assessment & Plan (1) Altered mental status: Confusion worsening over the 1 to 2 weeks prior to admission but overall gradual decline in mentation over 6 months as per . - Likely dementia with possibly some amount secondary to uremia and infection of the legs. - Continue delirium prevention strategies (2) Chronic kidney failure: CKD stage 5 with baseline Cr ~5 and eGFR ~10. - Continues to make urine - Nephrology consultation appreciated - no urgent dialysis at this time, but will need it in medium term. - Dr. Ly at [facility] performed fistulogram and venoplasty of the L subclavian vein on 11/07: AVF placed by Dr. Acosta in July - L arm edema has been attributed in part to increased venous pressures associated with pacer wires - If AVF does not mature, the patient will likely need the fistula ligated and a new AVF placed: certainly vascular surgery follow up will be necessary in the near future - The left arm should be kept elevated to assist with edema. Nephro recommends an exercise ball to help with maturation. - Continue Bumex to encourage urine output - Started on calcitriol by nephrology - Attempting to get Permacath placed as Dr. Celis believes HD while inpatient is important. Attempting transfer to [place] vs. providers here in the hospital. (3) Infected wound: Bilateral LE wounds, dressings changed on 11/11 by wound care and reported as stable from previous, with granulation tissue, no surrounding erythema, with serous drainage. He basically has denuded skin for a large portion of the anterior right tibia according to wound pictures, and a wound in the left distal tibia medially as well as a toe wound. - Left leg wound is growing Proteus-pansensitive - Right wound culture is growing MSSA - Received daptomycin and Zosyn for broad-spectrum coverage, then switched to Keflex renally dosed on 11/11 - would continue for total 10 days-last dose 11/18/18 - Wound care consult appreciated-recommends ONLY CHEMI[employer] MEMBER change dressings/compression wraps and dressings on leg wounds 2-3x/week - Continue tramadol and Tylenol as needed for pain in the legs (4) Left arm swelling: S/p fistula placement with subsequent fistulogram and revision at [facility]. AV fistula has good thrill on examination. - Is secondary to increased venous pressures associated with pacer wires. - Elevate with pillow - Improving (5) Ischemic dilated cardiomyopathy: Patient appears euvolemic. - Continue home medications with Bumex, metoprolol succinate 200 mg once daily - Holding lisinopril due to acute kidney injury (6) Hypertension: BPs within acceptable range in the last 24 hours. - Continue home medications of metoprolol succinate, Bumex - Holding lisinopril due to acute kidney injury (7) Hypercholesterolemia: Chronic, stable. - Continue Lipitor (8) Diabetes mellitus type 2, insulin dependent: Hemoglobin A1c 7.1% [id number] as an outpatient. He had persistent severe morning hypoglycemia into the 40s-50s for the first 2 days of admission, secondary to significantly high doses of insulin in the setting of acute kidney injury. Hypoglycemia may have also been contributing to his mental status changes at home. Hypoglycemia now resolved after not getting long-acting insulin for several days. - Holding all insulin from home (NPH 90/19/90 units) - Pharmacy managing--> added on NPH 16 units AM and sliding scale NPH at bedtime, continue SSI. - Continue gabapentin 300 mg once daily for neuropathy (9) Coronary artery disease: Stable. Chronic. No CP, history of ischemic cardiomyopathy, CABG. - Continue Metoprolol, ASA - Continue Lipitor (10) Atrial fibrillation: Permanent. He is mostly in paced rhythm on telemetry. - Continue Eliquis for anticoagulation - would hold for at least 24 hours prior if is going to have dialysis catheter placed - Continue Metoprolol for rate control (11) GERD (gastroesophageal reflux disease): Continue ranitidine (12) Hypothyroid: TSH normal here at 2.7. - Continue Synthroid (13) Pacemaker: Noted, paced rhythm on telemetry (14) Anemia: Anemia of chronic renal disease, hemoglobin stable at 10.0. - Iron studies show significant iron deficiency with ferritin 35, serum iron 32, iron saturation 9% - Started IV Venofer as per nephrology every 2 days with first dose on 11/10-now s/p receiving 2 doses (15) DVT prophylaxis: Bob, has compression wraps on legs. Subjective In worse mood today. Says no one comes to see him and that he is just rotting here. Does not remember his family's visit or my visit yesterday. Review of Systems Review of Systems: All systems reviewed & are unremarkable except as noted in HPI & below Physical Exam Constitutional: WD/WN, vitals as above Eyes: EOM intact bilaterally; no conjunctival abnormality ENMT: external ear and nose normal, oropharynx normal Neck: trachea midline, no thyromegaly normal visual inspection Respiratory: normal respiratory effort, lungs clear to auscultation no respiratory distress Cardiovascular: RRR, no murmur, no edema Gastrointestinal (Abdomen): Inspection/Auscultation: abdomen normal to inspection; abdomen not distended Musculoskeletal: no cyanosis or clubbing, extremities motor strength 5/5 Skin: + wound (Bilateral greene wounds. Seen with wound RN.) Neurologic: moves all extremities and awake Psychiatric: Orientation: alert, oriented to person and cooperative Results & Data Vital Signs (Past 12 Hours) Vital Signs Temp Pulse Resp BP Pulse Ox 11/15/18 07:37 36.5 C 60 16 134/77 96 11/15/18 04:20 36.8 C 63 20 136/75 97 (1) Altered mental status Altered mental status type: unspecified Qualified Code(s): R41.82 - Altered mental status, unspecified (2) Chronic kidney failure Chronic kidney disease stage: unspecified stage Qualified Code(s): N18.9 - Chronic kidney disease, unspecified
--- NOTE | 2018-11-15 15:35 | Pharmacy Report ---
Pharmacy Glycemic Short Note 2 - Date of Service November 15, 2018 - Glycemic Short BSG Results (Last 24 hours): 11/14/18 11/14/18 11/15/18 16:35 20:44 05:33 Glucose 200 H POC Glucose 204 H 233 H 11/15/18 11/15/18 07:50 11:58 Glucose POC Glucose 227 H 267 H OUTPATIENT ANTIDIABETIC REGIMEN: * Novolin 70/30 - 90 units with breakfast and dinner; 19 units with lunch * Total daily outpatient dose: 199 units/day ASSESSMENT: 11/15 * Patient received a total of 63 units yesterday (31 was basal) * Morning [id number]. Another 10 units of NPH was ordered in addition to the 16 units already given. Nurse delayed administration for over 4 hours, so patient's lunch BSG was elevated at 267. * Postprandial BSGs still elevated, so CF tightened to 20 and an overnight check at 0200 was added. * Lantus HS scale almost doubled from previous evening to hopefully get BSGs below 200s. 11/14 * Mr. Holder received 57 units of insulin yesterday (31 of this was basal) * Fasting BSG is much improved with additional basal on board. I'm hesitant to adjust the PM scale of NPH until we get a better idea of true needs. * Postprandial BSGs were increased yesterday; however, CR was just tightened with dinner last night so I would like to see how well this works before adjusting further. Since pre-lunch was elevated at 224 mg/dL today, will tighten CR just slightly. We may eventually see improvement with the higher basal doses on board and this can be backed off. 11/13 * Patient has been receiving significantly reduced outpatient insulin dosing for admission. Pt uses ~200 units of insulin per day at home and has been only requiring ~ 20 units/day for admission. BSGs starting to trend upwards now as insulin has been held/reduced. Will continue to titrate upwards conservatively. * AM fasting BSG = 180 mg/dl -> will increase AM NPH slightly and add conservative PM scale of NPH as pt takes NPH 3x daily at home (increasing to BID today) * Post-prandial BSGs elevated @ 281mg/dl --> will tighten CR PLAN FOR INPATIENT GLYCEMIC CONTROL: * Basal insulin - * Continue AM NPH dose of 16 units * Change scale for PM dose of NPH - dose based on BSG * BSG below 140 mg/dl --> 15 units * BSG 140-180mg/dl --> 20 units * BSG above 180mg/dl --> 25 units * Bolus insulin: tighten CR * NovoLog per scale ACHS or Q6hrs while NPO * Goal Range: Low 120 mg/dL - High 160 mg/dL * Correction Factor: 20 mg/dL/unit * Nutritional / Prandial insulin per carb ratio of 1 unit per 5 grams CHO consumed
[2018-11-15] MEDS: ATORVASTATIN 40 MG TAB PO SCH (17:42)
[2018-11-16] MEDS ORDERED: INSULIN ASPART 100 UNITS/ML 3 ML PEN SC SCH (02:00)
[2018-11-16] MEDS: LEVOTHYROXINE SODIUM 100 MCG TABLET PO SCH (05:41)
[2018-11-16 06:53] LABS: Albumin Level 2.8 gm/dl (3.4-5.0); BUN Creatinine Ratio 22.8 (10-20); Calcium 9.4 mg/dl (8.5-10.1); Creatinine Clr Calc Pharmacy 14.7 ml/min; Est GFR (African American) 12.8; Phosphorus 3.9 mg/dl (2.5-4.9); Potassium 3.8 mmol/L (3.5-5.1)
[2018-11-16] MEDS ORDERED: INSULIN HUMAN NPH SC SCH ×2 (08:00→17:00)
[2018-11-16] MEDS: INSULIN ASPART 100 UNITS/ML 3 ML PEN SC SCH ×4 (08:30→21:01)
[2018-11-16] MEDS: BUMETANIDE 1 MG TAB PO SCH ×2 (08:40→17:59)
[2018-11-16] MEDS: METOPROLOL SUCC 50MG EXT REL TAB PO SCH (08:45)
[2018-11-16] MEDS: ASPIRIN 81 MG ECTAB PO SCH (08:46)
[2018-11-16] MEDS: GABAPENTIN 300 MG CAP PO SCH (08:46)
[2018-11-16] MEDS: CARBAMIDE PEROXIDE 6.5% 15 ML BTL OT SCH (08:47)
[2018-11-16] MEDS: APIXABAN 2.5 MG TAB PO SCH ×2 (08:47→17:30)
[2018-11-16] MEDS: CALCITRIOL 0.25 MCG CAPSULE PO SCH (08:48)
[2018-11-16] MEDS: cephALEXin 250 MG CAP PO SCH (08:48)
[2018-11-16] MEDS: IRON SUCROSE 200 MG in 0.9 % SODIUM CHLORIDE 100 ML IV SCH (09:18)
--- NOTE | 2018-11-16 10:07 | Nephrology Progress Note ---
Date of Service November 16, 2018 Assessment & Plan (1) TASHA (acute kidney injury): -- Significant renal recovery is not expected -- Non-oliguric -- Electrolytes acceptable (2) Stage 5 chronic kidney disease: -- AVF not mature for use -- Tunneled dialysis catheter to be coordinated possibly at [facility] -- Once dialysis catheter has been placed, will start hemodialysis (3) Hyperkalemia: -- Low potassium diet (4) Acute confusion: -- Baseline mental status unknown to me but patient remains altered (5) Left arm swelling: (6) Secondary hyperparathyroidism of renal origin: -- Calcitriol 0.25 mcg QMWF (7) Anemia: -- Venofer provided for DILCIA (8) Atrial fibrillation: -- Elquis held for dialysis catheter placement (9) Pacemaker: (10) Diabetic ulcer of toe of right foot associated with type 2 diabetes mellitus: -- Remains on Keflex Subjective Lance remains confused. No acute events overnight. Breathing comfortably. Appetite fair. No fevers or chills. Review of Systems Review of Systems: All systems reviewed & are unremarkable except as noted in HPI & below Physical Exam Constitutional: well developed and + obese; no acute distress Eyes: no scleral abnormality and no corneal abnormality ENMT: Mouth: no oral mucosal abnormality and oral mucous membranes not dry Neck: normal visual inspection and trachea midline Respiratory: normal respiratory effort Auscultation: lungs clear to auscultation bilaterally Cardiovascular: RRR, no murmur, no edema Extremities: + pedal edema (b/l LE wrapped in dressing) and + AV fistula (Left brachiocephalic AV fistula with thrill and bruit, some edema) Gastrointestinal (Abdomen): Inspection/Auscultation: + abdomen distended Percussion/Palpation: abdomen soft; abdomen nontender Musculoskeletal: Extremities: no cyanosis and no clubbing Skin: no rashes Neurologic: Motor/Sensory: no tremor and no asterixis Psychiatric: Apperance: appropriately groomed Cognition: + recent memory not intact Insight: + poor insight Results & Data Vital Signs (Past 12 Hours) Vital Signs Temp Pulse Resp BP Pulse Ox 11/16/18 07:52 36.4 C L 60 18 112/69 97 11/15/18 23:49 36.4 C L 63 18 135/72 97 Laboratory Results Laboratory Results - last 24 hr 11/15/18 11/15/1811/15/19 11:58 16:40 20:40 Sodium Potassium Chloride Carbon Dioxide Anion Gap BUN Creatinine Est Cr Clr Drug Dosing Est GFR ( Amer) Est GFR (Non-Af Amer) BUN/Creatinine Ratio Glucose POC Glucose 267 H 196 H 203 H Calcium Phosphorus Albumin 11/16/18 11/16/18 11/16/18 01:40 05:45 07:32 Sodium 139 Potassium 3.8 Chloride 100 Carbon Dioxide 28 Anion Gap 10.0 BUN 105 H Creatinine 4.60 H* D Est Cr Clr Drug Dosing 14.7 Est GFR ( Amer) 12.8 Est GFR (Non-Af Amer) 11.0 BUN/Creatinine Ratio 22.8 H Glucose 153 H POC Glucose 172 H 174 H Calcium 9.4 Phosphorus 3.9 Albumin 2.8 L 11/16/18 08:42 Sodium Potassium Chloride Carbon Dioxide Anion Gap BUN Creatinine Est Cr Clr Drug Dosing Est GFR ( Amer) Est GFR (Non-Af Amer) BUN/Creatinine Ratio Glucose POC Glucose 158 H Calcium Phosphorus Albumin
--- NOTE | 2018-11-16 12:30 | Hospitalist Progress Note ---
Date of Service November 16, 2018 Assessment & Plan (1) Chronic kidney failure: CKD stage 5 with baseline Cr ~5 and eGFR ~10. - Continues to make urine - Dr. Ly at [facility] performed fistulogram and venoplasty of the L subclavian vein on 11/07: AVF placed by Dr. Acosta in July - L arm edema has been attributed in part to increased venous pressures associated with pacer wires - If AVF does not mature, the patient will likely need the fistula ligated and a new AVF placed: certainly vascular surgery follow up will be necessary in the near future - The left arm should be kept elevated to assist with edema. Nephro recommends an exercise ball to help with maturation. - Continue Bumex to encourage urine output - Started on calcitriol by nephrology - Will go to [facility] today for Permacath. Will discuss with Dr. Celis HD needs after. (2) Altered mental status: Confusion worsening over the 1 to 2 weeks prior to admission but overall gradual decline in mentation over 6 months as per . - Likely dementia with possibly some amount secondary to uremia and infection of the legs. - Continue delirium prevention strategies (3) Infected wound: Bilateral LE wounds, dressings changed on 11/11 by wound care and reported as stable from previous, with granulation tissue, no surrounding erythema, with serous drainage. He basically has denuded skin for a large portion of the anterior right tibia according to wound pictures, and a wound in the left distal tibia medially as well as a toe wound. - Left leg wound is growing Proteus-pansensitive - Right wound culture is growing MSSA - Wound care consult appreciated-recommends ONLY PT SITTER change dressings/compression wraps and dressings on leg wounds 2-3x/week - Continue tramadol and Tylenol as needed for pain in the legs - Legs examined on 11/15 with Ms. Cervantes. Significantly improving with some bleeding, but no infectious signs and small islands of normal tissue growing. - Received daptomycin and Zosyn for broad-spectrum coverage, then switched to Keflex renally dosed on 11/11 - would continue for total 10 days-last dose 11/18/18 (4) Left arm swelling: S/p fistula placement with subsequent fistulogram and revision at [facility]. AV fistula has good thrill on examination. - Is secondary to increased venous pressures associated with pacer wires. - Elevate with pillow - Improving - Per notes, AVF will be matured ~December 19 and could potentially be used after that. (5) Ischemic dilated cardiomyopathy: Patient appears euvolemic. - Continue home medications with Bumex, metoprolol succinate 200 mg once daily - Holding lisinopril due to acute kidney injury - Will restart once he's on HD (6) Hypertension: BPs within acceptable range in the last 24 hours. - Continue home medications of metoprolol succinate, Bumex - Holding lisinopril due to acute kidney injury (7) Hypercholesterolemia: Chronic, stable. - Continue Lipitor (8) Diabetes mellitus type 2, insulin dependent: Hemoglobin A1c 7.1% [id number] as an outpatient. He had persistent severe morning hypoglycemia into the 40s-50s for the first 2 days of admission, secondary to significantly high doses of insulin in the setting of acute kidney injury. Hypoglycemia may have also been contributing to his mental status changes at home. Hypoglycemia now resolved after not getting long-acting insulin for several days. - Holding all insulin from home (NPH 90/19/90 units) - Pharmacy managing--> added on NPH 16 units AM and sliding scale NPH at bedtime, continue SSI. - Continue gabapentin 300 mg once daily for neuropathy (9) Coronary artery disease: Stable. Chronic. No CP, history of ischemic cardiomyopathy, CABG. - Continue Metoprolol, ASA - Continue Lipitor (10) Atrial fibrillation: Permanent. He is mostly in paced rhythm on telemetry. - Continue Eliquis for anticoagulation - would hold for at least 24 hours prior if is going to have dialysis catheter placed - Continue Metoprolol for rate control (11) GERD (gastroesophageal reflux disease): Continue ranitidine (12) Hypothyroid: TSH normal here at 2.7. - Continue Synthroid (13) Pacemaker: Noted, paced rhythm on telemetry (14) Anemia: Anemia of chronic renal disease, hemoglobin stable at 10.0. - Iron studies show significant iron deficiency with ferritin 35, serum iron 32, iron saturation 9% - Started IV Venofer as per nephrology every 2 days with first dose on 11/10-now s/p receiving 2 doses (15) DVT prophylaxis: Eliquis, has compression wraps on legs. Subjective Feels ok today. Awoke from sleep. Does not recall our prior conversations about a Permacath or hemodialysis. Review of Systems Review of Systems: Unobtainable due to cognitive status Physical Exam Constitutional: WD/WN, vitals as above Eyes: EOM intact bilaterally; no conjunctival abnormality ENMT: external ear and nose normal, oropharynx normal Neck: trachea midline, no thyromegaly normal visual inspection Respiratory: normal respiratory effort, lungs clear to auscultation no respiratory distress Cardiovascular: RRR, no murmur, no edema Gastrointestinal (Abdomen): Inspection/Auscultation: abdomen normal to inspection; abdomen not distended Musculoskeletal: no cyanosis or clubbing, extremities motor strength 5/5 Skin: no rashes, warm and dry + wound (Bilateral greene wounds under compression stockings.) Neurologic: moves all extremities and awake Psychiatric: Orientation: alert, oriented to person and cooperative; + not oriented to place and + not oriented to time Results & Data Vital Signs (Past 12 Hours) Vital Signs Temp Pulse Resp BP Pulse Ox 11/16/18 11:52 36.3 C L 74 20 119/74 100 11/16/18 07:52 36.4 C L 60 18 112/69 97 (1) Altered mental status Altered mental status type: unspecified Qualified Code(s): R41.82 - Altered mental status, unspecified (2) Chronic kidney failure Chronic kidney disease stage: unspecified stage Qualified Code(s): N18.9 - Chronic kidney disease, unspecified
[2018-11-16] MEDS: CALCIUM 600MG + VIT D 400 IU TAB PO SCH (14:24)
[2018-11-16] MEDS: DOCUSATE SODIUM 100 MG CAP PO SCH ×2 (14:24→17:31)
--- NOTE | 2018-11-16 14:32 | Pharmacy Report ---
Pharmacy Glycemic Short Note 2 - Date of Service November 16, 2018 - Glycemic Short BSG Results (Last 24 hours): 11/15/18 11/15/18 11/16/18 16:40 20:40 01:40 Glucose POC Glucose 196 H 203 H 172 H 11/16/18 11/16/18 11/16/18 05:45 07:32 08:42 Glucose 153 H POC Glucose 174 H 158 H 11/16/18 10:58 Glucose POC Glucose 190 H OUTPATIENT ANTIDIABETIC REGIMEN: * Novolin 70/30 - 90 units with breakfast and dinner; 19 units with lunch * Total daily outpatient dose: 199 units/day ASSESSMENT: 11/16 * Patient to temporarily go to [place] for permacath placement today per RN (Unique). Dr. Salgado noted to hold AM NPH for NPO/procedure * Patient anticipated back prior to dinner, and po diet / T2DM ordered with dinner. OK to resume NPH at that time * Per Dr. Salgado, earliest anticipated HD will be tomorrow. Patient will require significant adjustment in regimen when HD initiated therefore will not schedule basal insulin for tomorrow 11/15 * Patient received a total of 63 units yesterday (31 was basal) * Morning [id number]. Another 10 units of NPH was ordered in addition to the 16 units already given but administration was delayed, so patient's lunch BSG was elevated at 267 * Postprandial BSGs still elevated, so CF tightened to 20 and an overnight check at 0200 was added. * Lantus HS scale almost doubled from previous evening to hopefully get BSGs below 200s. PLAN FOR INPATIENT GLYCEMIC CONTROL: * Basal insulin - * AM NPH dose was held for NPO/procedure * Change scale for PM dose of NPH - dose based on BSG * BSG below 140 mg/dl --> 20 units * BSG 140-180mg/dl --> 25 units * BSG above 180mg/dl --> 30 units * Bolus insulin: tighten CR * NovoLog per scale ACHS or Q6hrs while NPO * Goal Range: Low 120 mg/dL - High 160 mg/dL * Correction Factor: 20 mg/dL/unit * Nutritional / Prandial insulin per carb ratio of 1 unit per 5 grams CHO consumed
[2018-11-16] MEDS: ATORVASTATIN 40 MG TAB PO SCH (17:59)
[2018-11-17] MEDS ORDERED: INSULIN ASPART 100 UNITS/ML 3 ML PEN SC ONE (02:00)
[2018-11-17] MEDS: LEVOTHYROXINE SODIUM 100 MCG TABLET PO SCH (06:13)
[2018-11-17 06:15] LABS: Hematocrit (blood only) 33.7 % (42-52); Hemoglobin 10.7 g/dL (14.0-18.0); Mean Corpuscular Hgb Conc 31.8 g/dL (32-36); Mean Corpuscular Volume 89.6 fL (80-100); Mean Platelet Volume 9.3 fL (7.4-10.4); Platelet Count 196 K/uL (130-400); RDW Coefficient of Variation 17.4 % (11.5-14.5); RDW Standard Deviation 55.4 fL (36.4-46.3); Red Blood Count 3.76 M/uL (4.7-6.1); White Blood Count 8.45 K/uL (4.8-10.8)
[2018-11-17 07:00] LABS: Albumin Level 2.8 gm/dl (3.4-5.0); BUN Creatinine Ratio 25.3 (10-20); Calcium 9.1 mg/dl (8.5-10.1); Creatinine Clr Calc Pharmacy 13.9 ml/min; Est GFR (African American) 12.7; Magnesium 2.3 mg/dl (1.8-2.4); Phosphorus 4.1 mg/dl (2.5-4.9); Potassium 3.9 mmol/L (3.5-5.1)
[2018-11-17] MEDS: BUMETANIDE 1 MG TAB PO SCH ×2 (07:36→18:19)
[2018-11-17] MEDS: ASPIRIN 81 MG ECTAB PO SCH (07:36)
[2018-11-17] MEDS: CALCIUM 600MG + VIT D 400 IU TAB PO SCH (07:36)
[2018-11-17] MEDS: METOPROLOL SUCC 50MG EXT REL TAB PO SCH (08:16)
[2018-11-17] MEDS: cephALEXin 250 MG CAP PO SCH (08:16)
[2018-11-17] MEDS: GABAPENTIN 300 MG CAP PO SCH (08:16)
[2018-11-17] MEDS: INSULIN ASPART 100 UNITS/ML 3 ML PEN SC SCH ×4 (08:25→21:05)
[2018-11-17] MEDS ORDERED: INSULIN HUMAN NPH SC SCH ×2 (09:00→16:30)
--- NOTE | 2018-11-17 11:40 | Nephrology Progress Note ---
Date of Service November 17, 2018 Assessment & Plan (1) Stage 5 chronic kidney disease: -- AVF not mature for use -- Tunneled dialysis catheter to be coordinated at another facility -- Once dialysis catheter has been placed, will start hemodialysis (2) Left arm swelling: (3) Secondary hyperparathyroidism of renal origin: -- Calcitriol 0.25 mcg QMWF (4) Anemia: -- Venofer provided for DILCIA Subjective Lance remains confused. No acute events overnight. Breathing comfortably. Appetite fair. No fevers or chills. Review of Systems Review of Systems: All systems reviewed & are unremarkable except as noted in HPI & below Physical Exam Constitutional: well developed and + obese; no acute distress Eyes: no scleral abnormality and no corneal abnormality ENMT: Mouth: no oral mucosal abnormality and oral mucous membranes not dry Neck: normal visual inspection and trachea midline Respiratory: normal respiratory effort Auscultation: lungs clear to auscultation bilaterally Cardiovascular: RRR, no murmur, no edema Extremities: + pedal edema (b/l LE wrapped in dressing) and + AV fistula (Left brachiocephalic AV fistula with thrill and bruit, some edema) Gastrointestinal (Abdomen): Inspection/Auscultation: + abdomen distended Percussion/Palpation: abdomen soft; abdomen nontender Musculoskeletal: Extremities: no cyanosis and no clubbing Skin: no rashes Neurologic: Motor/Sensory: no tremor and no asterixis Psychiatric: Apperance: appropriately groomed Cognition: + recent memory not intact Insight: + poor insight Results & Data Vital Signs (Past 12 Hours) Vital Signs Temp Pulse Resp BP Pulse Ox 11/17/18 07:46 36.4 C L 60 20 127/73 99 11/17/18 00:00 36.7 C 61 20 118/69 94
[2018-11-17] MEDS: DOCUSATE SODIUM 100 MG CAP PO SCH ×2 (11:42→18:37)
[2018-11-17] MEDS: APIXABAN 2.5 MG TAB PO SCH ×2 (11:42→18:29)
--- NOTE | 2018-11-17 12:02 | Pharmacy Report ---
Pharmacy Glycemic Short Note 2 - Date of Service November 17, 2018 - Glycemic Short BSG Results (Last 24 hours): 11/16/18 11/16/18 11/16/18 10:58 16:15 20:31 Glucose POC Glucose 190 H 198 H 206 H 11/17/18 11/17/18 11/17/18 01:25 05:46 08:09 Glucose 113 H POC Glucose 171 H 131 H OUTPATIENT ANTIDIABETIC REGIMEN: * Novolin 70/30 - 90 units with breakfast and dinner; 19 units with lunch * Total daily outpatient dose: 199 units/day ASSESSMENT: 11/17: * Patient received total of 42 units of insulin yesterday, of which 30 units were NPH (he was NPO for part of the day) * Fasting BSG 113 mg/dL - per nurse plan yesterday had been to try an place permacath, however were unsuccessful with placement. Not clear if they will try again - Will give NPH 20 units this morning x 1. Days prior required about 70 units of insulin which appeared to not be enough since BSGs still elevated. Anticipate total daily units closer to 80 units. Decided with 20 units this morning as plan for another permcath not clear yet and concern for BSGs to trend down with dialysis. * Lunchtime BSG trending up to 273 mg/dL - will tighten CF/CR for lunchtime. Had discussion with provider and plan is to have palliative care talk with patient this afternoon to discuss goals. If plan is to continue and proceed with dialysis patient will likely need to be transferred to [place]. * Will add scale for Lantus on for dinner time based upon BSG 11/16 * Patient to temporarily go to [place] for permacath placement today per RN (Unique). Dr. Salgado noted to hold AM NPH for NPO/procedure * Patient anticipated back prior to dinner, and po diet / T2DM ordered with dinner. OK to resume NPH at that time * Per Dr. Salgado, earliest anticipated HD will be tomorrow. Patient will require significant adjustment in regimen when HD initiated therefore will not schedule basal insulin for tomorrow 11/15 * Patient received a total of 63 units yesterday (31 was basal) * Morning [id number]. Another 10 units of NPH was ordered in addition to the 16 units already given but administration was delayed, so patient's lunch BSG was elevated at 267 * Postprandial BSGs still elevated, so CF tightened to 20 and an overnight check at 0200 was added. * Lantus HS scale almost doubled from previous evening to hopefully get BSGs below 200s. PLAN FOR INPATIENT GLYCEMIC CONTROL: * Basal insulin - * 20 units QAM * Change scale for PM dose of NPH - dose based on BSG * BSG below 140 mg/dl --> 15 units * BSG 140-180mg/dl --> 20 units * BSG above 180mg/dl --> 25 units * Bolus insulin: tighten * NovoLog per scale ACHS or Q6hrs while NPO * Goal Range: Low 120 mg/dL - High 160 mg/dL * Correction Factor: 15 mg/dL/unit * Nutritional / Prandial insulin per carb ratio of 1 unit per 4 grams CHO consumed
--- NOTE | 2018-11-17 16:37 | Palliative Care Consultation ---
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 fib on Eliquis, and a history of prostate cancer who presented to the hospital on 11/08 with altered mental status. Patient's potassium on admission was 5.6 and his creatinine was 5.35. Patient has been medically managed by nephrology with improvement in his creatinine to 4.62 and his potassium to 3.9. Patient also has mild dementia. Patient with significant lower extremity edema-weeping -improved with aggressive diuresis and compression wraps. Met with family including patient's , daughter and [id number] along with attending physician Dr. Salgado and gut cleaner Dr. Celis to discuss options at this point. Patient had an AV fistula placed in the left upper extremity-the fistula is not adequate to use for dialysis. Patient was sent to [facility] to look for other access-was not successful. Presented options to the family including transfer to [place] [facility] to see if vascular access can be obtained as well as medical management with goal to return home. Patient has been having incre ased weakness, is unable to care for him at home at this time, family and patient are interested in some rehab to see if he can regain some strength and return home with his as his primary caregiver. Also discussed that if access cannot be obtained, having patient return home under hospice care. Dr. Celis to contact [facility] regarding possible transfer. -CKD stage V-patient will likely require dialysis to manage fluid as well as electrolytes-no adequate vascular access at this time. Patient will be referred to [facility] to see if they can establish access. Patient and family would like to continue to pursue aggressive care if possible. Family understands that access may be difficult, risky or even not obtainable. -CAD-status post CABG x4-atherosclerosis contributing to difficult vascular access -Diabetes with neuropathy-recent A1c was 7.8-continue on insulin and Neurontin -CHF-NYHA class III-patient did respond to aggressive diuresis-but will require dialysis to further manage -Atrial fib-metoprolol for rate control, pacemaker Will continue to follow and assist with medical decision making and provide support to both patient and family. (2) Stage 5 chronic kidney disease: -Patient's current fistula not adequate for dialysis-in order to receive dialysis patient would require vascular access Patient and family aware of the increased risk in obtaining vascular access- wants to give him that chance. (3) Altered mental status: Underlying dementia, slightly improved with treatment of electrolyte imbalance Altered mental status type: unspecified Qualified Code(s): R41.82 - Altered mental status, unspecified (4) Coronary artery disease: -Atherosclerosis-contributing to difficult vascular access (5) CHF (congestive heart failure), NYHA class III: -Patient aggressively diuresed, will likely require dialysis to help manage fluid status (6) Diabetes mellitus type 2, insulin dependent: -Fair control, continue current insulin (7) Atrial fibrillation: -On high-dose metoprolol for rate control, primarily paced rhythm History of Present Illness Reason for Consultation: Discussed goals of care with patient and family Requesting Physician: Dr. 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 fib on Eliquis, and a history of prostate cancer who presented to the hospital on 11/08 with altered mental status. Patient's potassium on admission was 5.6 and his creatinine was 5.35. Patient has been medically managed by nephrology with improvement in his creatinine to 4.62 and his potassium to 3.9. Patient also has mild dementia. Patient with significant lower extremity edema-weeping -improved with aggressive diuresis and compression wraps. Met with family including patient's , daughter and [id number] along with attending physician Dr. Salgado and gut cleaner Dr. Celis to discuss options at this point. Patient had an AV fistula placed in the left upper extremity-the fistula is not adequate to use for dialysis. Patient was sent to [facility] to look for other access-was not successful. Presented options to the family including transfer to [facility] to see if vascular access can be obtained as well as medical management with goal to return home. Patient has been having increased weakness, is unable to care for him at home at this time, family and patient are interested in some rehab to see if he can regain some strength and return home with his as his primary caregiver. Also discussed that if access cannot be obtained, having patient return home under hospice care. Dr. Celis to contact [facility] regarding possible transfer. Allergies Allergy/AdvReac Type Severity Reaction Status Date / Time No Known Allergies Allergy Verified 11/08/18 16:00 Home Medications Home Medications Medication Instructions Recorded Confirmed Type aspirin 81 mg tablet,delayed 81 mg PO QAM 06/09/18 11/08/18 History release atorvastatin 80 mg tablet 80 mg PO QDD 06/09/18 11/08/18 History docusate sodium 100 mg capsule 100 mg PO BIDM 06/09/18 11/08/18 History gabapentin 300 mg capsule 300 mg PO BIDM cap 06/09/18 11/08/18 History metoprolol succinate ER 200 mg 200 mg PO QAM 06/09/18 11/08/18 History tablet,extended release 24 hr multivitamin,[id number]-[id number] 1 tab PO QAM 06/09/18 11/08/18 History tablet nitroglycerin 0.4 mg sublingual 0.4 mg SL Q5M PRN 06/09/18 11/08/18 History tablet polyethylene glycol 3350 17 17 gm PO DAILY PRN gm 06/09/18 11/08/18 History gram/dose oral powder ranitidine 150 mg tablet 150 mg PO QAM 06/09/18 11/08/18 History Calcium 600 + D(3) 1 tab PO QAM 06/16/18 11/08/18 History GenTeal Tears Mild 1 drp OPHTHALMIC (EYE) DAILY PRN 06/16/18 11/08/18 History Novolin 70/30 U-100 Insulin 19 unit SUBCUT QDL 06/16/18 11/08/18 History Novolin 70/30 U-100 Insulin 90 units SUBCUT QDB 06/16/18 11/08/18 History acetaminophen [Tylenol Extra 1,000 mg PO TID PRN 06/16/18 11/08/18 History Strength] ascorbic acid (vitamin C) [Vitamin 1,000 mg PO QAM 06/16/18 11/08/18 History C] cholecalciferol (vitamin D3) 1,000 unit PO QAM 06/16/18 11/08/18 History [Vitamin D3] lisinopril 10 mg PO QAM 06/16/18 11/08/18 History Eliquis 2.5 mg PO BIDM 09/16/18 11/08/18 History levothyroxine 100 mcg PO DAILYBB 09/16/18 11/08/18 History bumetanide 1 mg tablet 2 mg PO BIDM tab 10/04/18 11/08/18 History cephalexin 500 mg capsule 500 mg PO qid #40 cap 11/04/18 11/08/18 Rx insulin NPH and regular human 90 unit SUBCUT QDD 11/08/18 11/08/18 History [Novolin 70/30 U-100 Insulin] Patient History Medical History Actinic keratitis (Acute) Fistula (Acute) Spinal stenosis (Acute) Atrial fibrillation ON RIVAROXABAN (SWITCHED FROM ELIQUIS 2/2 KIDNEY DISEASE) Chronic kidney disease, stage IV (severe) PROPHYLACTIC AVF PLACEMENT FOR POTENTIAL FUTURE DIALYSIS Coronary artery disease S/P CABG X 4 (10+ YEARS AGO) DJD (degenerative joint disease) Diabetes IDDM Diabetes mellitus type 2 in nonobese GERD (gastroesophageal reflux disease) CONTROLLED H/O prostate cancer HTN (hypertension) History of kidney stones History of left bundle branch block (LBBB) PER CARDIO RECORDS Hypercholesteremia Hypothyroid ICD (implantable cardioverter-defibrillator) battery depletion PPM/ICD IMPLANTED 2013; [employer] LAST PACER CHECK 08/01/18 Ischemic cardiomyopathy Obesity Surgical History H/O cardiac pacemaker 2013 H/O four vessel coronary artery bypass graft CABG X 4 (10+ YEARS AGO) H/O total knee replacement RIGHT History of surgical removal of pilonidal cyst Hx of hemorrhoidectomy Social History Preferred Language: Zimbabwean Communication Ability: sleeping Visual Impairment: Limited Hearing Ability: Normal Delivery Professional Required: Yes Beliefs That Will Affect Care: None marital status: Current Living Situation: Spouse current occupational status: retired Other Information That Helps Us Care for You: No Feels Safe at Home: Yes Safety Concerns: Feels Safe At This Time Smoking Status: Never smoker Tobacco Type: cigarettes Second Hand Exposure: No Hx Alcohol Use: No Hx Substance Use: No Review of Systems Review of Systems: Patient denies pain, fever, chills, increased shortness of breath or abdominal pain Physical Exam Physical Exam: PE: No acute distress HEENT: EOMI, mild [place] Respiratory: Unlabored CV: Paced rhythm, rate controlled Abdomen: Distended, soft Extremities: 3+ edema-compression wraps in place Neuro: Mild cognitive deficits, able to participate in contribute to conversation and decision-making. Results & Data Vital Signs (Past 12 Hours) Vital Signs Temp Pulse Resp BP Pulse Ox 11/17/18 16:13 97.3 F L 60 18 151/89 H 98 11/17/18 07:46 97.5 F L 60 20 127/73 99 Time Spent Attending Total time spent 100 minutes with greater than 50% of the time spent at bedside discussing with patient and family treatment options, risks associated with different options as well as goals of care
--- NOTE | 2018-11-17 17:27 | Hospitalist Progress Note ---
Date of Service November 17, 2018 Assessment & Plan (1) Chronic kidney failure: CKD stage 5 with baseline Cr ~5 and eGFR ~10. - Continues to make urine - Dr. Ly at [facility] performed fistulogram and venoplasty of the L. subclavian vein on 11/07: AVF placed by Dr. Acosta in July. - L. arm edema has been attributed in part to increased venous pressures associated with pacer wires - If AVF does not mature, the patient will likely need the fistula ligated and a new AVF placed: certainly vascular surgery follow up will be necessary in the near future - The left arm should be kept elevated to assist with edema. Nephro recommends an exercise ball to help with maturation. - Continued Bumex to encourage urine output - Started on calcitriol by nephrology - Went to [facility] on 11/16 for Permacath, but could not be placed by IR. Transfer to [facility]. (2) Altered mental status: Confusion worsening over the 1 to 2 weeks prior to admission but overall gradual decline in mentation over 6 months as per . - Likely dementia with possibly some amount secondary to uremia and infection of the legs. - Continue delirium prevention strategies (3) Infected wound: Bilateral LE wounds, dressings changed on 11/11 by wound care and reported as stable from previous, with granulation tissue, no surrounding erythema, with serous drainage. He basically has denuded skin for a large portion of the anterior right tibia according to wound pictures, and a wound in the left distal tibia medially as well as a toe wound. - Wound care consult appreciated-recommends ONLY INTAKE COORDINATOR change dressings/compression wraps and dressings on leg wounds 2-3x/week - Continue tramadol and Tylenol as needed for pain in the legs - Legs examined on 11/15 with Ms. Cervantes (java development manager). Significantly improving with some bleeding, but no infectious signs and small islands of normal tissue growing. - Received daptomycin and Zosyn for broad-spectrum coverage, then switched to Keflex renally dosed on 11/11 - would continue for total 10 days-last dose 11/18/18. - Left leg wound is growing Proteus-pansensitive - Right wound culture is growing MSSA - As of 11/17, legs still improving. No erythema, purulence, or other infectious signs. (4) Left arm swelling: S/p fistula placement with subsequent fistulogram and revision at [facility]. AV fistula has good thrill on examination. - Is secondary to increased venous pressures associated with pacer wires. - Elevate with pillow - Improving - Per notes, AVF will be matured ~December 19 and could potentially be used after that. (5) Ischemic dilated cardiomyopathy: Patient appears euvolemic. - Continue home medications with Bumex, metoprolol succinate 200 mg once daily - Holding lisinopril due to acute kidney injury & hyperkalemia - Will restart once he's on HD (6) Hypertension: BPs within acceptable range in the last 24 hours. - Continue home medications of metoprolol succinate, Bumex - Holding lisinopril due to acute kidney injury & hyperkalemia (7) Hypercholesterolemia: Chronic, stable. - Continue Lipitor (8) Diabetes mellitus type 2, insulin dependent: Hemoglobin A1c 7.1% [id number] as an outpatient. He had persistent severe morning hypoglycemia into the 40s-50s for the first 2 days of admission, secondary to significantly high doses of insulin in the setting of acute kidney injury. Hypoglycemia may have also been contributing to his mental status changes at home. Hypoglycemia now resolved after not getting long-acting insulin for several days. - Holding all insulin from home (NPH 90/19/90 units) - Pharmacy managing--> added on NPH 20 units AM and sliding scale NPH at bedtime, continue SSI. - Continue gabapentin 300 mg once daily for neuropathy (9) Coronary artery disease: Stable. Chronic. No CP, history of ischemic cardiomyopathy, CABG. - Continue Metoprolol, ASA - Continue Lipitor (10) Atrial fibrillation: Permanent. He is mostly in paced rhythm on telemetry. - Continue Eliquis for anticoagulation - would hold for at least 24 hours prior if is going to have dialysis catheter placed - Continue Metoprolol for rate control (11) GERD (gastroesophageal reflux disease): Continue ranitidine (12) Hypothyroid: TSH normal here at 2.7. - Continue Synthroid (13) Pacemaker: Noted, paced rhythm on telemetry (14) Anemia: Anemia of chronic renal disease, hemoglobin stable at 10.0. - Iron studies show significant iron deficiency with ferritin 35, serum iron 32, iron saturation 9% - Started IV Venofer as per nephrology every 2 days with first dose on 11/10 (15) DVT prophylaxis: Eliquis, has compression wraps on legs. Subjective Pleasant today. No major pain or complaints. Review of Systems Review of Systems: All systems reviewed & are unremarkable except as noted in HPI & below Physical Exam Constitutional: WD/WN, vitals as above Eyes: EOM intact bilaterally; no conjunctival abnormality ENMT: external ear and nose normal, oropharynx normal Neck: trachea midline, no thyromegaly normal visual inspection Respiratory: normal respiratory effort, lungs clear to auscultation no respiratory distress Cardiovascular: RRR, no murmur, no edema Gastrointestinal (Abdomen): Inspection/Auscultation: abdomen normal to inspection; abdomen not distended Musculoskeletal: no cyanosis or clubbing, extremities motor strength 5/5 Skin: no rashes, warm and dry + wound (Bilateral greene wounds under compression stockings.) Neurologic: moves all extremities and awake Psychiatric: Orientation: alert, oriented to person and cooperative; + not oriented to place and + not oriented to time Results & Data Vital Signs (Past 12 Hours) Vital Signs Temp Pulse Resp BP Pulse Ox 11/17/18 16:13 36.3 C L 60 18 151/89 H 98 11/17/18 07:46 36.4 C L 60 20 127/73 99 (1) Chronic kidney failure Chronic kidney disease stage: unspecified stage Qualified Code(s): N18.9 - Chronic kidney disease, unspecified (2) Altered mental status Altered mental status type: unspecified Qualified Code(s): R41.82 - Altered mental status, unspecified
[2018-11-17] MEDS: ATORVASTATIN 40 MG TAB PO SCH (18:23)
[2018-11-18] MEDS ORDERED: INSULIN ASPART 100 UNITS/ML 3 ML PEN SC SCH
[2018-11-18] MEDS: LEVOTHYROXINE SODIUM 100 MCG TABLET PO SCH (06:26)
[2018-11-18] MEDS: cephALEXin 250 MG CAP PO SCH (07:46)
[2018-11-18] MEDS: ASPIRIN 81 MG ECTAB PO SCH (07:46)
[2018-11-18] MEDS: BUMETANIDE 1 MG TAB PO SCH ×2 (07:46→17:52)
[2018-11-18] MEDS: APIXABAN 2.5 MG TAB PO SCH ×2 (07:46→17:53)
[2018-11-18] MEDS: CALCIUM 600MG + VIT D 400 IU TAB PO SCH (07:46)
[2018-11-18] MEDS: GABAPENTIN 300 MG CAP PO SCH (07:47)
[2018-11-18] MEDS: CALCITRIOL 0.25 MCG CAPSULE PO SCH (07:47)
[2018-11-18] MEDS: METOPROLOL SUCC 50MG EXT REL TAB PO SCH (07:47)
[2018-11-18 07:52] LABS: Hematocrit (blood only) 34.1 % (42-52); Hemoglobin 10.9 g/dL (14.0-18.0); Mean Corpuscular Volume 88.8 fL (80-100); Mean Platelet Volume 9.4 fL (7.4-10.4); Platelet Count 175 K/uL (130-400); RDW Coefficient of Variation 17.7 % (11.5-14.5); RDW Standard Deviation 56.7 fL (36.4-46.3); Red Blood Count 3.84 M/uL (4.7-6.1); White Blood Count 7.83 K/uL (4.8-10.8)
[2018-11-18] MEDS ORDERED: INSULIN HUMAN NPH SC SCH ×3 (08:15→17:00)
[2018-11-18 08:25] LABS: Albumin Level 2.8 gm/dl (3.4-5.0); BUN Creatinine Ratio 24.6 (10-20); Calcium 9.1 mg/dl (8.5-10.1); Creatinine Clr Calc Pharmacy 15.5 ml/min; Est GFR (African American) 13.8; Est GFR (Non-African American) 11.9; Magnesium 2.2 mg/dl (1.8-2.4); Phosphorus 4.2 mg/dl (2.5-4.9); Potassium 3.8 mmol/L (3.5-5.1)
[2018-11-18] MEDS: INSULIN ASPART 100 UNITS/ML 3 ML PEN SC SCH ×4 (08:45→21:36)
--- NOTE | 2018-11-18 09:24 | Pharmacy Report ---
Pharmacy Glycemic Short Note 2 - Date of Service November 18, 2018 - Glycemic Short BSG Results (Last 24 hours): 11/17/18 11/17/18 11/17/18 11:34 16:53 20:30 Glucose POC Glucose 273 H 190 H 203 H 11/17/18 11/18/18 11/18/18 23:59 07:37 07:45 Glucose 132 H POC Glucose 149 H 136 H OUTPATIENT ANTIDIABETIC REGIMEN: * Novolin 70/30 - 90 units with breakfast and dinner; 19 units with lunch * Total daily outpatient dose: 199 units/day ASSESSMENT: 11/18: * Mr. Holder received 77 units of insulin yesterday (40 of which were basal) * Fasting = 132 mg/dL; this is comparable to yesterday and he received more NPH yesterday compared to the day prior so I initially did not plan to change basal. * Postprandial BSGs improved on 11/17 after Novolog parameters were tightened. These are fairly aggressive so I planned to continue but adjust goal range to allow for correctional to be given once BSG above 150 mg/dL instead of above 160 mg/dL. * Pre-lunch BSG was significantly higher today compared to yesterday and this was with tightened Novolog parameters. I tightened the CR further and had a recheck ~1400 -> only down to 221 mg/dL after 21 units of Novolog. * At this point, it seems like overall insulin needs are increasing due to improving SCr. Novolog parameters have already been adjusted today and are aggressive so will provide a scale for the NPH and get an overnight check to see if additional basal will need added in the morning. * Of note, patient has an impending [place] [facility] [place] 11/17: * Patient received total of 42 units of insulin yesterday, of which 30 units were NPH (he was NPO for part of the day) * Fasting BSG 113 mg/dL - per nurse plan yesterday had been to try an place permacath, however were unsuccessful with placement. Not clear if they will try again - Will give NPH 20 units this morning x 1. Days prior required about 70 units of insulin which appeared to not be enough since BSGs still elevated. Anticipate total daily units closer to 80 units. Decided with 20 units this morning as plan for another permcath not clear yet and concern for BSGs to trend down with dialysis. * Lunchtime BSG trending up to 273 mg/dL - will tighten CF/CR for lunchtime. Had discussion with provider and plan is to have palliative care talk with patient this afternoon to discuss goals. If plan is to continue and proceed with dial ysis patient will likely need to be transferred to [place]. * Will add scale for Lantus on for dinner time based upon BSG 11/16 * Patient to temporarily go to [place] for permacath placement today per RN ([facility]). Dr. Salgado noted to hold AM NPH for NPO/procedure * Patient anticipated back prior to dinner, and po diet / T2DM ordered with dinner. OK to resume NPH at that time * Per Dr. Salgado, earliest anticipated HD will be tomorrow. Patient will require significant adjustment in regimen when HD initiated therefore will not schedule basal insulin for tomorrow 11/15 * Patient received a total of 63 units yesterday (31 was basal) * Morning [id number]. Another 10 units of NPH was ordered in addition to the 16 units already given but administration was delayed, so patient's lunch BSG was elevated at 267 * Postprandial BSGs still elevated, so CF tightened to 20 and an overnight check at 0200 was added. * Lantus HS scale almost doubled from previous evening to hopefully get BSGs below 200s. PLAN FOR INPATIENT GLYCEMIC CONTROL: * Basal insulin - increase by 25% if BSG remains > 160 * NPH BID per the following scale: * 20 units for BSG < 160 * 25 units for BSG 160 or above * Bolus insulin: tighten goal range and carb ratio, may need to loosen once more basal on board * NovoLog per scale ACHS or Q6hrs while NPO * Goal Range: Low 110 mg/dL - High 150 mg/dL * Correction Factor: 15 mg/dL/unit * Nutritional / Prandial insulin per carb ratio of 1 unit per 4 grams CHO consumed Discharge Recommendations: * Expect insulin requirements to continue to change with changing renal function and plans for dialysis. Patient will still require reduced insulin doses compared to outpatient regimen of 199 units/day but more concrete plan will need to be determined after dialysis has been [place] at [facility]
--- NOTE | 2018-11-18 11:38 | Nephrology Progress Note ---
Date of Service November 18, 2018 Assessment & Plan (1) Stage 5 chronic kidney disease: -- I spoke to Dr. Ly (vascular surgeon at [facility]) yesterday, patient is awaiting transfer for evaluation of dialysis access -- BP and volume status remain appropriate -- Once dialysis catheter has been placed, will start hemodialysis -- Lance is expected to begin hemodialysis in the outpatient setting at [facility] post hospital discharge (2) Left arm swelling: (3) Secondary hyperparathyroidism of renal origin: -- Calcitriol 0.25 mcg QMWF (4) Anemia: -- Venofer provided for DILCIA Subjective No acute events overnight. Lance does not recall our meeting yesterday. He is not aware of the details of his care. Wound care wrapped his legs this morning. He believes they are looking better. Review of Systems Review of Systems: All systems reviewed & are unremarkable except as noted in HPI & below Physical Exam Constitutional: well developed and + obese; no acute distress Eyes: no scleral abnormality and no corneal abnormality ENMT: Mouth: no oral mucosal abnormality and oral mucous membranes not dry Neck: normal visual inspection and trachea midline Respiratory: normal respiratory effort Auscultation: lungs clear to auscultation bilaterally Cardiovascular: RRR, no murmur, no edema Extremities: + pedal edema (b/l LE wrapped in dressing) and + AV fistula (Left brachiocephalic AV fistula with thrill and bruit, some edema) Gastrointestinal (Abdomen): Inspection/Auscultation: + abdomen distended Percussion/Palpation: abdomen soft; abdomen nontender Musculoskeletal: Extremities: no cyanosis and no clubbing Skin: no rashes Neurologic: Motor/Sensory: no tremor and no asterixis Psychiatric: Apperance: appropriately groomed Cognition: + recent memory not intact Insight: + poor insight Results & Data Vital Signs (Past 12 Hours) Vital Signs Temp Pulse Resp BP Pulse Ox 11/18/18 07:30 36.4 C L 60 18 129/71 98 Laboratory Results Laboratory Results - last 24 hr 11/17/18 11/17/18 11/17/18 11:34 16:53 20:30 WBC RBC Hgb Hct MCV MCH MCHC RDW Std Deviation RDW Coeff of Virginie Plt Count MPV Sodium Potassium Chloride Carbon Dioxide Anion Gap BUN Creatinine Est Cr Clr Drug Dosing Est GFR ( Amer) Est GFR (Non-Af Amer) BUN/Creatinine Ratio Glucose POC Glucose 273 H 190 H 203 H Calcium Phosphorus Magnesium Albumin 11/17/18 11/18/18 11/18/18 23:59 07:37 07:37 WBC 7.83 RBC 3.84 L Hgb 10.9 L Hct 34.1 L MCV 88.8 MCH 28.4 MCHC 32.0 RDW Std Deviation 56.7 H RDW Coeff of Virginie 17.7 H Plt Count 175 MPV 9.4 Sodium 137 Potassium 3.8 Chloride 98 Carbon Dioxide 27 Anion Gap 12.0 H BUN 106 H Creatinine 4.32 H D Est Cr Clr Drug Dosing 15.5 Est GFR ( Amer) 13.8 Est GFR (Non-Af Amer) 11.9 BUN/Creatinine Ratio 24.6 H Glucose 132 H POC Glucose 149 H Calcium 9.1 Phosphorus 4.2 Magnesium 2.2 Albumin 2.8 L 11/18/18 07:45 WBC RBC Hgb Hct MCV MCH MCHC RDW Std Deviation RDW Coeff of Virginie Plt Count MPV Sodium Potassium Chloride Carbon Dioxide Anion Gap BUN Creatinine Est Cr Clr Drug Dosing Est GFR ( Amer) Est GFR (Non-Af Amer) BUN/Creatinine Ratio Glucose POC Glucose 136 H Calcium Phosphorus Magnesium Albumin
[2018-11-18] MEDS: IRON SUCROSE 200 MG in 0.9 % SODIUM CHLORIDE 100 ML IV SCH (12:02)
[2018-11-18] MEDS: DOCUSATE SODIUM 100 MG CAP PO SCH ×2 (12:02→17:51)
--- NOTE | 2018-11-18 15:31 | Discharge Summary ---
Date of Service November 18, 2018 Admission HPI Per Admitting Provider Mr. Holder is an 83yo C male with multiple medical problems to include CAD, HTN, HLP, DM, AF on anticoagulation with Eliquis, CKD, ICM and GERD. Patient presents to [facility] today with altered mental status, somnolence and confusion. History provided by patient as well as family at bedside. Report increased confusion for the last day. Patient also complaining of perirectal pain and hemorrhoids. Patient with chronic wounds on bilateral LE. He follows routinely at wound clinic and has been on Keflex but has had worsening of weeping wounds, foul smelling discharge. Patient with CKD nearing dialysis dependence. He had LUE AV fistula placed by Dr. Acosta in August 2018 with subsequent edema of the LUE. A fistulogram was performed on 10/07/18 with no stenosis noted and patent anastamosis. Patient had subsequent revision of the fistula at [facility] [place] Ly (stated that he suspects fistula will be mature and ready for use in 3-4 weeks per family). He is expected to start HD soon. Patient offers no complaints at this time. No fevers, chills, nausea, vomiting, diarrhea or constipation. He reports that he still makes an adequate amount of urine ER Course: Daptomycin, Zosyn Principal Diagnosis Hypervolemia and hyperkalemia due to CKD/ESRD Discharge Exam Constitutional WD/WN, vitals as above Eyes EOM intact bilaterally; no conjunctival abnormality ENMT external ear and nose normal, oropharynx normal Neck trachea midline, no thyromegaly normal visual inspection Respiratory normal respiratory effort, lungs clear to auscultation no respiratory distress Cardiovascular RRR, no murmur, no edema Gastrointestinal (Abdomen) Inspection/Auscultation: abdomen normal to inspection; abdomen not distended Musculoskeletal no cyanosis or clubbing, extremities motor strength 5/5 Skin no rashes, warm and dry + wound (Bilateral greene wounds under compression stockings.) Neurologic moves all extremities and awake Psychiatric Orientation: alert, oriented to person and cooperative; + not oriented to place and + not oriented to time Discharge Data Allergies Allergy/AdvReac Type Severity Reaction Status Date / Time No Known Allergies Allergy Verified 11/08/18 16:00 Consultations 11/08/18 17:26 ED Decision to Admit Stat 11/08/18 20:03 Consult Nephrology Routine 11/09/18 07:49 Consult Case Management - Discharge Planning Routine 11/17/18 08:06 Consult Palliative Care Routine Ordered Studies 11/08/18 13:40 CT head/brain wo con Stat Hospital Course (1) Chronic kidney failure: CKD stage 5 with baseline Cr ~5 and eGFR ~10. - Dr. Ly at [facility] performed fistulogram and venoplasty of the L. subclavian vein on 11/07: AVF placed by Dr. Acosta in July. - L. arm edema has been attributed in part to increased venous pressures associated with pacer wires - The left arm should be kept elevated to assist with edema. Nephro recommends an exercise ball to help with maturation. - Continued Bumex to encourage urine output - Continues to make small amounts of urine - Started on calcitriol by nephrology - It was decided by nephrology that the patient should initial hemodialysis as he was unlikely to be able to maintain volume status and electrolyte balance over the course of the next days/weeks without hemodialysis. - Went to [facility] on 11/16 for Permacath, but could not be placed by IR. - On 11/17, nephrology, palliative, and primary team had an extended discussion with , daughter, and d-i-l about whether to pursue dialysis at all given his age, comorbidities, and dementia. decided to pursue transfer to [place] for further evaluation and recs. (2) Altered mental status: Confusion worsening over the 1 to 2 weeks prior to admission but overall gradual decline in mentation over 6 months as per . - Likely dementia with possibly some amount secondary to uremia and infection of the legs. - Continue delirium prevention strategies (3) Infected wound: Has large areas of superficial skin deterioration from PVD. On admission, concern for wound infection. - Received daptomycin and Zosyn for broad-spectrum coverage, then switched to Keflex renally dosed on 11/11 - would continue for total 10 days-last dose 11/18/18. - Left leg wound is growing Proteus-pansensitive - Right wound culture is growing MSSA - Bilateral LE wounds, dressings changed on 11/11 by wound care and reported as stable from previous, with granulation tissue, no surrounding erythema, with serous drainage. - Legs examined on 11/15 with Ms. Cervantes (superintendent water and sewer systems). Significantly improving with some bleeding, but no infectious signs and small islands of normal tissue growing. - Continue tramadol and Tylenol as needed for pain in the legs - As of 11/18, legs still improving. No erythema, purulence, or other infectious signs. (4) Left arm swelling: S/p fistula placement with subsequent fistulogram and revision at [facility]. AV fistula has good thrill on examination. - Has some LUE edema secondary to increased venous pressures associated with pacer wires; improved since venoplasty by Dr. Ly. - Elevate with pillow - Per notes, AVF will be matured ~December 19 and could potentially be used after that. (5) Ischemic dilated cardiomyopathy: Patient appears euvolemic. - Continue Bumex, metoprolol succinate 200 mg once daily - Holding lisinopril due to acute kidney injury & hyperkalemia - Will restart once he's on HD (6) Hypertension: BPs within acceptable range in the last 24 hours. (~130/70). - Continue home medications of metoprolol succinate, Bumex - Holding lisinopril due to acute kidney injury & hyperkalemia (7) Hypercholesterolemia: Chronic, stable. - Continue Lipitor (8) Diabetes mellitus type 2, insulin dependent: Hemoglobin A1c 7.1% [id number] as an outpatient. He had persistent severe morning hypoglycemia into the 40s-50s for the first 2 days of admission, secondary to significantly high doses of insulin in the setting of acute kidney injury. Hypoglycemia may have also been contributing to his mental status changes at home. Hypoglycemia now resolved after not getting long-acting insulin for several days. - Holding all insulin from home (NPH 90/19/90 units) - Pharmacy managing--> added on NPH 20 units AM and sliding scale NPH at bedtime, continue SSI. - Continue gabapentin 300 mg once daily for neuropathy (9) Coronary artery disease: Stable. Chronic. No CP, history of ischemic cardiomyopathy, CABG. - Continue Metoprolol, ASA - Continue Lipitor (10) Atrial fibrillation: Permanent. He is mostly in paced rhythm on telemetry. - Continue Eliquis for anticoagulation - would hold for at least 24 hours prior if is going to have dialysis catheter placed - Continue Metoprolol for rate control (11) GERD (gastroesophageal reflux disease): Continue ranitidine (12) Hypothyroid: TSH normal here at 2.7. - Continue Synthroid (13) Pacemaker: Noted, paced rhythm on telemetry (14) Anemia: Anemia of chronic renal disease, hemoglobin stable at 10.0. - Iron studies show significant iron deficiency with ferritin 35, serum iron 32, iron saturation 9% - Started IV Venofer as per nephrology every 2 days with first dose on 11/10 (15) DVT prophylaxis: Eliquis, has compression wraps on legs. Total Time Total Time Spent Total Time Spent (In Minutes): 60 Total Time Includes: Examination of the Patient, Discharge Planning, Medication Reconciliation and Communication With Other Providers Discharge Plan Discharge Items Patient Disposition: Transfer Acute Care Hospital Reason For Visit: AMS Discharge Diagnosis: CKD merging into ESRD Discharge Goals: Decrease discomfort Activity: Resume your previous activity Non-emergency contact: Primary Care Provider Call non-emergency contact if: your symptoms worsen Follow-up/Referrals: Johan Bah MD [Physician] - Lexii Aguilar MD [Primary Care Provider] - Diet: Carb Consistent or DM2 and Dialysis Renal Addtl Provider Instructions: Prescriptions: New tramadol 50 mg Tablet 50 mg PO Q4H PRN (Reason: pain) Qty: 1 RF: 0 Novolog Flexpen U-100 Insulin 100 unit/mL (3 mL) Insulin Pen 1 unit SC ACHS Qty: 1 RF: 0 calcitriol 0.25 mcg Capsule 0.25 mcg PO MoWeFr@0900 Qty: 1 RF: 0 Continued aspirin [Adult Aspirin Regimen] 81 mg tablet,delayed release (DR/EC) 81 mg PO QAM RF: 0 atorvastatin [Lipitor] 80 mg tablet 80 mg PO QDD RF: 0 docusate sodium [Colace] 100 mg capsule 100 mg PO BIDM RF: 0 gabapentin 300 mg capsule 300 mg PO BIDM RF: 0 metoprolol succinate [Toprol XL] 200 mg tablet extended release 24 hr 200 mg PO QAM RF: 0 multivitamin,[id number]-ailsdlto [Complete Multivitamin] tablet 1 tab PO QAM RF: 0 polyethylene glycol 3350 [Miralax] 17 gram/dose powder 17 gm PO DAILY PRN (Reason: Constipation) RF: 0 ranitidine HCl [Zantac] 150 mg tablet 150 mg PO QAM RF: 0 cephalexin [Keflex] 500 mg capsule 500 mg PO qid Qty: 40 RF: 0 ascorbic acid (vitamin C) [Vitamin C] 1,000 mg Tablet 1,000 mg PO QAM RF: 0 acetaminophen [Tylenol Extra Strength] 500 mg Tablet 1,000 mg PO TID PRN (Reason: Pain) RF: 0 Calcium 600 + D(3) 600 mg calcium- 200 unit Capsule 1 tab PO QAM RF: 0 cholecalciferol (vitamin D3) [Vitamin D3] 1,000 unit Tablet 1,000 unit PO QAM RF: 0 GenTeal Tears Mild 0.1-0.3 % Drops 1 drp ophthalmic (eye) DAILY PRN (Reason: Dry Eye(S)) RF: 0 bumetanide 1 mg tablet 2 mg PO BIDM RF: 0 levothyroxine 100 mcg Tablet 100 mcg PO DAILYBB RF: 0 Eliquis 2.5 mg Tablet 2.5 mg PO BIDM RF: 0 Discontinued nitroglycerin [Nitrostat] 0.4 mg tablet, sublingual 0.4 mg SL Q5M PRN (Reason: Chest Pain) RF: 0 Novolin 70/30 U-100 Insulin 100 unit/mL (70-30) Suspension 90 unit SUBCUT QDD RF: 0 lisinopril 10 mg tablet 10 mg PO QAM RF: 0 Novolin 70/30 U-100 Insulin 100 unit/mL (70-30) Suspension 90 units subcut QDB RF: 0 Novolin 70/30 U-100 Insulin 100 unit/mL (70-30) Suspension 19 unit SUBCUT QDL RF: 0 Stand-Alone Forms: [facility] Discharge Orders: Discharge Order (Routine); Ordered 11/18/18 Ordered By: Floyd Salgado Admission Data Admit Date/Time: 11/08/18 19:22 Attending Provider: Floyd Salgado Admit Provider: Anika Garcia Primary Care Provider: Lexii Aguilar Other Providers: Anika Garcia ; Johan Bah ; Cristopher Oliver ; Lydia Fountain ; Aliza Patel ; Homar Celis ; IRB Approved Study,No ; Serena Morgan Service: Medical
[2018-11-18] MEDS: ATORVASTATIN 40 MG TAB PO SCH (17:53)
[2018-11-19] MEDS ORDERED: INSULIN ASPART 100 UNITS/ML 3 ML PEN SC ONE (02:00)
== END 2018-11-19 01:15 | disposition short-term general hospital (02) | DRG 682 ==
LOC: ED 13:18 → 2N 19:22 → SUATTDRO 19:22 → 2N 19:48 → 4E 11-17 03:30

== ENCOUNTER 2019-05-25 12:31 | Inpatient (IN) ==
--- NOTE | 2019-05-25 09:12 | History & Physical Report ---
Date of Service May 25, 2019 History of Present Illness Primary Care Provider: Lexii Aguilar MD View Report History Print [facility] [address] History & Physical Report Signed Patient: ANSHUL STERN Admit Date: 04/27/19 MR#: [id number] Att Phy: Rex Acosta M.D. Acct ID:[id number] Liz Phy: Lexii Aguilar MD Date: 1935 Fam Phy: Age: 84 Location: U Sex: M Room/Bed: cc: ~ *NOTICE TO RECEIVING LIBERTARIAN/AGENCY This information is strictly Confidential and protected under [place] law. [place] law prohibits you from making any further disclosure of this information unless further disclosure is expressly permitted by the written consent of the person to whom it pertains or is authorized by law. A general authorization for the release of medical or other information is not sufficient for this purpose. Hospital accepts no responsibility if the information is made available to any other person, INCLUDING THE PATIENT. Date of Service May 07, 2019 Assessment & Plan (1) Dialysis AV fistula malfunction: Patient is admitted at this time for fistulogram with possible intervention. I have discussed the risks options and benefits of the procedure with the patient. The patient understands the risks options and benefits and agrees to the procedure. History of Present Illness Chief Complaint: Malfunctioning left arm fistula. Primary Care Provider: Lexii Aguilar MD Patient is an 84-year-old male with a left arm fistula in place. There have difficulty in running the fistula. Fistulogram was recommended. Patient admitted this time for fistulogram and possible intervention. Allergies Allergy/AdvReac Type Severity Reaction Status Date / Time clindamycin Allergy Mild Nausea Verified 05/05/19 10:44 Home Medications Home Medications Medication Instructions Recorded Confirmed Type aspirin 81 mg tablet,delayed 81 mg PO QAM 06/09/18 05/05/19 History release atorvastatin 80 mg tablet 0 mg PO QDD 06/09/18 05/05/19 History docusate sodium 100 mg capsule 100 mg PO BIDM 06/09/18 05/05/19 History metoprolol succinate 200 mg 200 mg PO QAM 06/09/18 05/05/19 History tablet,extended release 24 hr multivitamin,ga-szzu-wnwxrkwb 1 tab PO QAM 06/09/18 05/05/19 History polyethylene glycol 3350 17 17 gm PO DAILY PRN gm 06/09/18 05/05/19 History gram/dose oral powder Calcium 600 + D(3) 1 tab PO QAM 06/16/18 05/05/19 History GenTeal Tears Mild 1 drp OPHTHALMIC (EYE) DAILY PRN 06/16/18 05/05/19 History acetaminophen [Tylenol Extra 1,000 mg PO TID PRN 06/16/18 05/05/19 History Strength] ascorbic acid (vitamin C) [Vitamin 1,000 mg PO QAM 06/16/18 05/05/19 History C] Eliquis 2.5 mg PO BIDM 09/16/18 05/05/19 History nitroglycerin 0.4 mg sublingual 0.4 mg SL UD PRN #25 tab 01/02/19 05/05/19 History tablet capsaicin 0.025 % topical cream 1 appln TOPICAL QID #1 gm 01/11/19 05/05/19 History cholecalciferol (vitamin D3) 25 1,000 units PO QAM 01/11/19 05/05/19 History mcg (1,000 unit) tablet gabapentin 300 mg capsule 300 mg PO BID cap 01/11/19 05/05/19 History insulin human U-100 NPH-regulr 0 units SUBCUT DIRECTED ml 01/23/19 05/05/19 History 70-30 mix 100 unit/mL subcutaneous susp insulin NPH and regular human 0 unit SUBCUT DAILYBD 03/01/19 05/05/19 History insulin NPH and regular human 0 unit SUBCUT DAILYBL 03/01/19 05/05/19 History lisinopril 0 mg PO QAM 03/01/19 05/05/19 History levothyroxine 100 mcg tablet 100 mcg PO DAILY #90 tab 03/10/19 05/05/19 Rx bumetanide 1 mg tablet 2 mg PO BID #360 tab 03/29/19 05/05/19 Rx famotidine 10 mg tablet 10 mg PO DAILY #30 tab 04/13/19 05/05/19 Rx mupirocin 2 % topical ointment 1 appln TOP BID #15 gm 05/05/19 05/05/19 Rx Past Med/Surg History Medical History Actinic keratitis ARMS - SCALY; LEGS DEVELOPED OPEN WOUNDS STILL HAS SOME OPEN AREAS ON LEGS Age-related cognitive decline Chronic kidney disease, stage IV (severe) [facility] Compression fracture of lumbar vertebra Coronary artery disease S/P CABG X 4 (~2002) Dementia Diabetes IDDM DJD (degenerative joint disease) GERD (gastroesophageal reflux disease) CONTROLLED H/O prostate cancer brachytherapy treatment. Hemodialysis patient FISTULA LEFT ARM. receiving diaylsis Wednesday, & Wednesday @ [facility]ney [facility] History of brachytherapy History of kidney stones History of left bundle branch block (LBBB) HTN (hypertension) Hypercholesteremia Hypothyroid Ischemic cardiomyopathy s/p insertion of pacer/icd 2013. Stable. EF 55-60% 09/2017 echo. Obesity Permanent atrial fibrillation Asymptomatic per cardio 10/24/18. Rate controlled on BB, anticoagulated with Eliquis. Secondary hyperparathyroidism Sleep apnea NO LONGER USES CPAP Spinal stenosis Venous stasis Surgical History H/O four vessel coronary artery bypass graft CABG X 4 (~2002) H/O total knee replacement RIGHT History of cardioversion unsuccessful History of colonoscopy History of surgical removal of pilonidal cyst Hx of hemorrhoidectomy Presence of implantable cardioverter-defibrillator (ICD) PPM/ICD IMPLANTED 2013; [employer] LAST PACER CHECK S/P arteriovenous (AV) fistula creation left arm. Needs to start dialysis, but fistula swollen and unusable currently. Family History Sister Kidney stones Son Kidney stones Mother Diabetes Hypertension Heart disease Aunt Colon cancer Social History Preferred Language: Sami Communication Ability: Effective Visual Impairment: Limited Hearing Ability: Normal Professor Of Philosophy Required: No Beliefs That Will Affect Care: None marital status: Current Living Situation: Spouse current occupational status: retired Feels Safe at Home: Yes Smoking Status: Former smoker Tobacco Type: cigarettes ; Second Hand Exposure: No ; Hx Alcohol Use: No Hx Substance Use: No Review of Systems All systems reviewed & are unremarkable except as noted in HPI & below Physical Exam Physical Exam: The patient is awake, alert, oriented, follows command, does not appear to be in distress. The patient has no swelling in his left upper extremity. Left arm fistula has a good thrill and bruit. The patient does have a well-healed scar over his left chest wall where his pacemaker was implanted. Lungs are clear. Cor had a RRR. Abdominal exam is benign. The patient has a palpable radial and brachial pulse in the left upper extremity. The patient has weakness in his left index finger and is unable to completely flex it. The patient has some numbness and tingling at the tips of the left hand. No open wounds or ulcers are noted on his hands. Signed By: <Electronically signed by Rex Acosta MD> 05/07/19 0858 Created: 05/07/19 0850 The status of this report is Signed. Draft = Not yet reviewed or approved by Medical Physician. Signed = Reviewed and approved by Medical Physician. Allergies Allergy/AdvReac Type Severity Reaction Status Date / Time clindamycin AdvReac Mild Nausea Verified 05/24/19 14:24 Home Medications Home Medications Medication Instructions Recorded Confirmed Type aspirin 81 mg tablet,delayed 81 mg PO QAM 06/09/18 05/25/19 History release docusate sodium 100 mg capsule 100 mg PO BIDM 06/09/18 05/25/19 History metoprolol succinate 200 mg 200 mg PO QAM 06/09/18 05/25/19 History tablet,extended release 24 hr multivitamin,cl-zbpw-yrwirjrt 1 tab PO QAM 06/09/18 05/25/19 History polyethylene glycol 3350 17 17 gm PO DAILY PRN gm 06/09/18 05/25/19 History gram/dose oral powder Calcium 600 + D(3) 1 tab PO QAM 06/16/18 05/25/19 History GenTeal Tears Mild 1 drp OPHTHALMIC (EYE) DAILY PRN 06/16/18 05/25/19 History acetaminophen [Tylenol Extra 1,000 mg PO TID PRN 06/16/18 05/25/19 History Strength] ascorbic acid (vitamin C) [Vitamin 1,000 mg PO QAM 06/16/18 05/25/19 History C] nitroglycerin 0.4 mg sublingual 0.4 mg SL UD PRN #25 tab 01/02/19 05/25/19 History tablet cholecalciferol (vitamin D3) 25 1,000 units PO QAM 01/11/19 05/25/19 History mcg (1,000 unit) tablet gabapentin 300 mg capsule 300 mg PO BID cap 01/11/19 05/25/19 History insulin human U-100 NPH-regulr 50 units SUBCUT BID ml 01/23/19 05/25/19 History 70-30 mix 100 unit/mL subcutaneous susp bumetanide 1 mg tablet 2 mg PO BID #360 tab 03/29/19 05/25/19 Rx apixaban 2.5 mg tablet 2.5 mg PO BIDM #180 tab 05/17/19 05/25/19 Rx atorvastatin [Lipitor] 80 mg PO QPM 05/24/19 05/25/19 History levothyroxine 100 mcg PO QAM 05/24/19 05/25/19 History ranitidine HCl 150 mg PO QAM 05/24/19 05/25/19 History Past Med/Surg History Social History Preferred Language: Sami Communication Ability: Effective Visual Impairment: Limited Hearing Ability: Normal Professor Of Philosophy Required: No Beliefs That Will Affect Care: None marital status: Current Living Situation: Spouse current occupational status: retired Other Information That Helps Us Care for You: No Feels Safe at Home: Yes Safety Concerns: Feels Safe At This Time Smoking Status: Former smoker Tobacco Type: cigarettes ; Second Hand Exposure: No ; Hx Alcohol Use: No Hx Substance Use: No
[2019-05-25] MEDS ORDERED: CLINDAMYCIN 600 MG/54 ML BAG IV SCH (13:00)
[2019-05-25] MEDS ORDERED: CLINDAMYCIN 600 MG/54 ML D5W IV ONE (13:03)
[2019-05-25] MEDS ORDERED: D5W AND 1/4NSS 1,000 ML IV SCH (13:25)
[2019-05-25] MEDS ORDERED: CEFAZOLIN 2000MG 2,000 MG/15 ML SYR IV SCH (15:30)
--- NOTE | 2019-05-25 15:36 | History & Physical Bridge Note ---
Date of Service May 25, 2019 History & Physical Bridge Note Patient has infiltration of his left arm fistula yesterday and now can not be used for dialysis due to the swelling. Will need a permcath placed today. I have discussed the risks options and benefits of the procedure with the patient. The patient understands the risks options and benefits and agrees to the procedure. I have examined the patient, reviewed the History & Physical and in the interval since the performance of the History & Physical I have noted the following changes of clinical significance: no changes noted
[2019-05-25] MEDS ORDERED: fentaNYL citrate 100 MCG/2 ML VIAL ONE (15:38)
[2019-05-25] MEDS ORDERED: MIDAZOLAM HCL 1 MG/ML 2ML VIAL ONE (15:39)
--- NOTE | 2019-05-25 15:40 | Pre Anesthesia Assessment ---
Date of Service May 25, 2019 Pre Sedation Assessment Vital Signs Temp Pulse Resp BP Pulse Ox 05/25/19 13:06 36.6 C 86 20 125/89 95 Cardiovascular RRR, no murmur, no edema Respiratory normal respiratory effort, lungs clear to auscultation Pre-Sedation Airway Assessment Smoking Status: Former smoker Hx Sleep Apnea: Yes (does not use cpap) Short, Thick Neck: No Thyromental Distance: > or= 3.5 Finger Breadths Oral Cavity: + WNL Mallampati Class: II ASA: ASA3 NPO Status Date of Last Intake of Fluids: 05/24/19 Time of Last Intake of Fluids: 20:00 Date of Last Intake of Solid Food: 05/24/19 Time of Last Intake of Solid Foods: 20:00 Procedure Planning Contraindications for Sedation: none Current Medications Reviewed: Yes Notes The planned sedation has been discussed with the patient. Informed Consent was obtained. I have identified the patient, determined the appropriateness of sedation and have assessed the patient immediately prior to the procedure. All medicine(s) and interventions are by my order.
[2019-05-25] MEDS ORDERED: LIDOCAINE HCL 1% 20 ML VIAL ONE (15:44)
[2019-05-25] MEDS ORDERED: HEPARIN SOD (PORCINE) 5,000 UNITS/ML VIAL ONE ×2 (15:44→15:57)
--- NOTE | 2019-05-25 16:21 | Procedure Note ---
Angiogram Post Procedure Fluoroscopy Time (minutes): 0.1 Conscious Sedation Time (minutes): 15.53 Radiation (mGy): 2 Contrast: 0 Post Operative Report Pre & Post Diagnosis Operation Date: 05/25/19 13:50 Pre-Op Diagnosis: Malfunctioning Fistula Post-Op Diagnosis: Malfunctioning Fistula Procedure Operation Date: 05/25/19 13:50 Actual Procedures p Insertion of Perm Catheter, Right Internal Jugular Approach, Ultrasound Localization of Right Internal Jugular Vein, Fluoroscopy for Positioning; Moderate Sedation From 1353 to (Right) - Rex Acosta MD Surgeon Rex Acosta MD Nonprofit Director Radha Morrow MD Estimated Blood Loss 5 Findings Consistent with Post-Op Diagnosis Specimens none Drains none Anesthesia Type RN Sedation Complications none Disposition Accompanied Patient To Recovery: No Disposition: Recovery Room Indications Need for HD access Description of Procedure Patient was taken to the angio suite and placed in the supine position. The right IJ was examined using ultrasound and noted to be diminutive and inadequate. Thus we chose to place the Permcath in the right groin. The right groin was prepped and draped in a sterile manner. The patient was identified and a timeout performed. Local anesthesia was then administered to the appropriate areas of the right groin. Ultrasound was then used to locate the right femoral vein. The vein compressed easily, had no filing defects, and was patent. The vein was then punctured under direct ultrasound imaging. A guidewire was then passed centrally under fluoroscopic imaging. A stab wound was then made in the right anterior thigh and a 35 cm permcath was passed from the stab wound on the thigh to the puncture site in the groin. The puncture site was then dilated till the 14Fr peel away sheath was inserted. The permcath was then inserted through the sheath to a central position in the inferior vena cava. The peel away sheath was then removed. The catheter was then sutured in place using nylon sutures. The puncture was then closed using a 4-0 Vicryl subcuticular suture. Dermabond was used for a dressing on the puncture site. Both ports aspirated and flushed easily and were then packed with heparin. A sterile dress ing was applied to the catheter. The patient left the angio suite in good condition and tolerated the procedure well. Dr. Acosta was present and scrubbed for the entire procedure. I attest to the content of the Intraoperative Record and any orders documented therein. Any exceptions are noted below.
--- NOTE | 2019-05-25 16:24 | Post Operative Brief Note ---
Immediate Post Op Note v1 Date of Surgery May 25, 2019 Pre & Post Diagnosis Operation Date: 05/25/19 13:50 Pre-Op Diagnosis: Malfunctioning Fistula Post-Op Diagnosis: Malfunctioning Fistula I identified the patient and participated in the time-out.: Yes Procedure Operation Date: 05/25/19 13:50 Actual Procedures p Insertion of Perm Catheter, Right Femoral Approach, Ultrasound Localization of Right Femoral Vein, Fluoroscopy for Positioning; Moderate Sedation From 1553 to 1626(Right) - Rex Acosta MD Surgeon Rex Acosta MD Paint Mixer Hand MD Santiago Estimated Blood Loss 5 Findings Consistent with Post-Op Diagnosis Anesthesia Type RN Sedation Complications none Disposition Accompanied Patient To Recovery: No Disposition: Recovery Room
--- NOTE | 2019-05-25 16:29 | Post Anesthesia Assessment ---
Date of Service May 25, 2019 Post Sedation Assessment Vital Signs Temp Pulse Pulse Resp BP Pulse Ox 05/25/19 16:26 72 20 126/74 93 05/25/19 16:21 106 H 20 126/85 94 05/25/19 16:20 97 H 20 126/85 100 05/25/19 16:15 112 H 24 139/75 100 05/25/19 16:10 82 20 157/73 H 100 05/25/19 16:05 85 20 142/60 H 100 05/25/19 15:55 78 28 H 121/73 100 05/25/19 15:52 86 28 H 142/61 H 100 05/25/19 13:06 36.6 C 86 20 125/89 95 Recovery Score Activity: Moves 4 extremities Respiration: Deep Breath/Cough Circulation: +/-20% PreAnes Value Consciousness: Fully Awake Oxygen Saturation: > 92% On Room Air Post Anesthesia Score: 10 Discharge Sedation Level of Care: Fast Track Phase II Post Sedation Plan On clinical assessment, the patient appears to have tolerated the sedation without complications. Patient is recovering as anticipated. Patient will continue to be monitored by nursing and may be discharged when sedation discharge criteria are met per below protocol. Upon Completions of procedure up to 15 minutes continue every 5 minute vital signs and the P.A.R. score; then discharge to a Phase I or Fast Track to Phase II per the following guidelines: * Discharge Patient to appropriate Phase II area if PAR is 8 or greater or return to pre- procedure baseline. The post - procedure orders will be as directed. * If PAR score is less than 8 or not return to pre-procedure baseline then patient will follow Phase I monitoring till PAR is reached for Phase II. The Phase I may be done in procedure room or may call to secure a Phase I area. * If naloxone or flumazenil are used for reversal, hold in Phase I for continued monitoring from when last reversal dose was given for a minimum of 60 minutes or longer pending the nurse and/or physician discretion of patient condition before discharge to Phase II. Please call the Sedation Physician to re-evaluate and complete post-note for discharge to Phase II area. Do NOT discharge from procedure sedation or Phase 1 until post- sedation evaluation note is complete by procedure /sedation MD Sedation Discharge Instructions to be given to the patient at discharge to home.
--- NOTE | 2019-05-25 17:16 | History & Physical Report ---
Date of Service May 25, 2019 Assessment & Plan (1) Chronic kidney disease, stage IV (severe): -Admit to [facility] for observation -Dialysis scheduled for tomorrow, nephro consulted, will ensure permacath functions properly (2) Central venous catheter in place: -Right femoral (3) Hematoma: -Secondary to IV dialysis, puncture of AV fistula (4) Hemorrhage of arteriovenous fistula: -S/P permacath insertion by Dr. Acosta completed today -Vascular surgery on board -US of aVF reviewed from 05/24/2019, no active hemorrhage at this time. -Continue Eliquis 2.5 BID, ASA 81 mg (5) Coronary artery disease: -Continue antihypertensives including metoprolol succinate 200 daily, ASA 81 mg daily, Bumex 2 mg BID -BP well controlled at 126/74 (6) Atrial fibrillation: -Anticoagulated with Eliquis (7) Ischemic dilated cardiomyopathy: (8) Pacemaker: (9) Hypertension: - Antihypertensives as above (10) Hypercholesterolemia: - Not on statin therapy (11) Diabetes mellitus type 2, insulin dependent: - ISS with accuchecks ACHS - Hold NPH 70/30 while impatient - A1c = 8.3 on 03/22/2019, no need to recheck (12) Diabetic ulcer of toe of right foot associated with type 2 diabetes mellitus: -Consult wound (13) Chronic venous insufficiency: (14) LBBB (left bundle branch block): - Stable, will (15) Anemia: -Chronic, hemoglobin was 9.0 as of 05/24/2019. -Follow a.m. CBC (16) Hypothyroid: -Continue levothyroxine 100 mcg every morning (17) GERD (gastroesophageal reflux disease): -Holding ranitidine secondary to recall and limited hospital supply. (18) Obesity (BMI 30-39.9): -Diet and exercise to be encouraged upon discharge -BMI = 37.8 (19) Sleep apnea: -Patient noncompliant, does not wear CPAP (20) DVT prophylaxis: -Bob Harrell CODE STATUS: Full code Disposition: Patient from home, PT/OT, CM to assist with discharge planning, likely discharge tomorrow morning History of Present Illness Primary Care Provider: Lexii Aguilar MD This is a 84 yo M with PMHx of CAD, afib on eliquis, HTN, HLD, CKD stage V on hemodialysis (T//WED), chronic anemia, Alzheimer's dementia, osteoarthritis, GERD, hypothyroidism, peripheral neuropathy. The patient was evaluated and underwent permacath placement today, by Dr. Acosta on 05/25/2019 as patient had previously had aVF hematoma formed due to puncture during dialysis. Patient has left upper extremity fistula, significant arm swelling and ecchymosis. His notes that he took about 1 hour to get into the car early this morning before his permacath placement. He denies any pain currently. Patient has difficulty providing specific regarding his health due to dementia and is intermittently joking during our conversation. His , daughter and [id number] are present at bedside, they are requesting referral be made to [facility] if rehab is required. Allergies Allergy/AdvReac Type Severity Reaction Status Date / Time clindamycin AdvReac Mild Nausea Verified 05/25/19 12:53 Home Medications Home Medications Medication Instructions Recorded Confirmed Type aspirin 81 mg tablet,delayed 81 mg PO QAM 06/09/18 05/25/19 History release docusate sodium 100 mg capsule 100 mg PO BIDM 06/09/18 05/25/19 History metoprolol succinate 200 mg 200 mg PO QAM 06/09/18 05/25/19 History tablet,extended release 24 hr multivitamin,pb-jywc-[id number] 1 tab PO QAM 06/09/18 05/25/19 History polyethylene glycol 3350 17 17 gm PO DAILY PRN gm 06/09/18 05/25/19 History gram/dose oral powder Calcium 600 + D(3) 1 tab PO QAM 06/16/18 05/25/19 History GenTeal Tears Mild 1 drp OPHTHALMIC (EYE) DAILY PRN 06/16/18 05/25/19 History acetaminophen [Tylenol Extra 1,000 mg PO TID PRN 06/16/18 05/25/19 History Strength] ascorbic acid (vitamin C) [Vitamin 1,000 mg PO QAM 06/16/18 05/25/19 History C] nitroglycerin 0.4 mg sublingual 0.4 mg SL UD PRN #25 tab 01/02/19 05/25/19 History tablet cholecalciferol (vitamin D3) 25 1,000 units PO QAM 01/11/19 05/25/19 History mcg (1,000 unit) tablet gabapentin 300 mg capsule 600 mg PO BID cap 01/11/19 05/25/19 History insulin human U-100 NPH-regulr 50 units SUBCUT BID ml 01/23/19 05/25/19 History 70-30 mix 100 unit/mL subcutaneous susp bumetanide 1 mg tablet 2 mg PO BID #360 tab 03/29/19 05/25/19 Rx apixaban 2.5 mg tablet 2.5 mg PO BIDM #180 tab 05/17/19 05/25/19 Rx atorvastatin [Lipitor] 80 mg PO QPM 05/24/19 05/25/19 History levothyroxine 100 mcg PO QAM 05/24/19 05/25/19 History ranitidine HCl 150 mg PO QAM 05/24/19 05/25/19 History Past Med/Surg History Social History Preferred Language: [place] Communication Ability: Effective Visual Impairment: Limited Hearing Ability: Normal Digital Strategist Required: No Beliefs That Will Affect Care: None marital status: Current Living Situation: Spouse current occupational status: retired Other Information That Helps Us Care for You: No Feels Safe at Home: Yes Safety Concerns: Feels Safe At This Time Smoking Status: Former smoker Tobacco Type: cigarettes ; Do You Dip or Chew Tobacco: No ; Second Hand Exposure: No ; Tobacco Cessation Education Requested by Patient: No Hx Alcohol Use: No Hx Substance Use: No Review of Systems Review of Systems: Constitutional: No fever, sweats or chills Eyes: No diplopia, no worsening or blurred vision ENT: normal hearing, no trouble swallowing Respiratory: No cough, sputum, dyspnea at rest or on exertion Cardiovascular: No chest pain, tightness or palpitations Abdomen: No pain, nausea, vomiting, diarrhea or constipation Musculoskeletal: + Left upper arm swelling and bruising, otherwise no joint pain, calf pain, swelling Neurologic: No weakness, numbness/tingling, or balance problems Psychiatric: No anxiety or depression Skin: No rash or itch Physical Exam Physical Exam: General: awake, alert, no apparent distress, + obese Head: Normocephalic, atraumatic ENT: PERRL, EOMI, no pharyngeal exudate, mucous membranes moist Chest: Clear to auscultation, on room air, no adventitious breath sounds Cardiac: Regular rate and rhythm, no murmur, no JVD, normal peripheral pulses, good capillary refill Abdominal: NABS x 4 quadrants, soft, nondistended, nontender to palpation, no rebound, guarding or tenderness Extremities: Left upper extremity with ecchymosis and edema, permacath insertion right femoral, + multiple ulcerations over BLE, erythema BLE, chronic venous insufficiency BLE, + dry skin, + 1+ pitting peripheral edema BLE, calfs nontender to palpation Psych: Normal mood and affect Neuro: AAO x 3, no gross motor deficits, speech is clear, no peripheral sensory deficits Results & Data Vital Signs (Past 12 Hours) Vital Signs Temp Pulse Pulse Resp BP Pulse Ox 05/25/19 16:26 72 20 126/74 93 05/25/19 16:21 106 H 20 126/85 94 05/25/19 16:20 97 H 20 126/85 100 05/25/19 16:15 112 H 24 139/75 100 05/25/19 16:10 82 20 157/73 H 100 05/25/19 16:05 85 20 142/60 H 100 05/25/19 15:55 78 28 H 121/73 100 05/25/19 15:52 86 28 H 142/61 H 100 05/25/19 13:06 36.6 C 86 20 125/89 95 Supervising Physician Co-Signing Physician Notes Patient seen and examined, chart reviewed, case discussed with CATHIE Peace and I agree with her assessment and plan as documented above. PG Care Time/CCT Total # of Minutes Spent Total Time Spent with Patient: Total time spent is greater than 50% in coordination of care (as documented) at patient's floor/unit and/or counseling patient: (1) Hemorrhage of arteriovenous fistula Encounter type: initial encounter Qualified Code(s): T82.838A - Hemorrhage due to vascular prosthetic devices, implants and grafts, initial encounter
[2019-05-25] MEDS ORDERED: ONDANSETRON INJ 2 MG/ML 2 ML VIAL IV PRN (19:35)
[2019-05-25] MEDS ORDERED: GLUCAGON FOR INJ 1 MG VIAL SQ PRN (19:35)
[2019-05-25] MEDS ORDERED: GLUCOSE 10 TABS/TUBE PO PRN (19:35)
[2019-05-25] MEDS ORDERED: ACETAMINOPHEN 500 MG TAB PO PRN (19:35)
[2019-05-25] MEDS ORDERED: NITROGLYCERIN SL 0.4 MG/TAB TAB SL PRN (19:35)
[2019-05-25] MEDS ORDERED: GLUCOSE 40% GEL 15 GM TUBE PO PRN (19:35)
[2019-05-25] MEDS ORDERED: POLYETHYLENE (MIRALAX) 17 GM PACK PO PRN (19:35)
[2019-05-25] MEDS ORDERED: DEXTROSE 50% 50 ML SYRINGE IV PRN (19:35)
[2019-05-25] MEDS ORDERED: CARBOHYDRATES FOR HYPOGLYCEMIA PO PRN (19:35)
[2019-05-25] MEDS ORDERED: ARTIFICIAL TEARS OP PRN (19:55)
[2019-05-25] MEDS: GABAPENTIN 600 MG TAB PO SCH (20:22)
[2019-05-25] MEDS: ATORVASTATIN 40 MG TAB PO SCH (20:22)
[2019-05-25] MEDS: INSULIN ASPART 100 UNITS/ML 3 ML PEN SC SCH (21:00)
[2019-05-25] MEDS ORDERED: SODIUM POLYSTYRENE SULFONATE 15G/60ML SUSP PO STA (21:57)
[2019-05-26] MEDS: LEVOTHYROXINE SODIUM 100 MCG TABLET PO SCH (05:45)
[2019-05-26] MEDS ORDERED: SODIUM CHLORIDE 0.9% 1000ML 1,000 ML IV PRN (07:00)
[2019-05-26 07:26] LABS: Hematocrit (blood only) 26.4 % (42-52); Hemoglobin 8.5 g/dL (14.0-18.0); Mean Corpuscular Hemoglobin 34.4 pg (25-34); Mean Corpuscular Hgb Conc 32.2 g/dL (32-36); Mean Corpuscular Volume 106.9 fL (80-100); Mean Platelet Volume 10.3 fL (7.4-10.4); Nucleated RBC # (auto) 0.06 K/uL (0-0); Nucleated RBC % (auto) 0.7 %; Platelet Count 167 K/uL (130-400); RDW Coefficient of Variation 15.2 % (11.5-14.5); RDW Standard Deviation 58.5 fL (36.4-46.3); Red Blood Count 2.47 M/uL (4.7-6.1); White Blood Count 8.05 K/uL (4.8-10.8)
[2019-05-26] MEDS: CHOLECALCIFEROL 1,000 UNITS TAB PO SCH (07:33)
[2019-05-26] MEDS: ASCORBIC ACID 500 MG TAB PO SCH (07:33)
[2019-05-26] MEDS: GABAPENTIN 600 MG TAB PO SCH ×2 (07:34→21:06)
[2019-05-26] MEDS: MULTIVITAMIN TAB PO SCH (07:34)
[2019-05-26] MEDS: METOPROLOL SUCC 50MG EXT REL TAB PO SCH (07:34)
[2019-05-26] MEDS: ASPIRIN 81 MG ECTAB PO SCH (07:34)
[2019-05-26] MEDS: BUMETANIDE 1 MG TAB PO SCH ×2 (07:34→18:18)
[2019-05-26] MEDS: CALCIUM 600MG + VIT D 400 IU TAB PO SCH (07:34)
[2019-05-26] MEDS: DOCUSATE SODIUM 100 MG CAP PO SCH ×2 (07:35→18:19)
[2019-05-26] MEDS: APIXABAN 2.5 MG TAB PO SCH ×2 (07:35→18:19)
[2019-05-26] MEDS: INSULIN ASPART 100 UNITS/ML 3 ML PEN SC SCH ×4 (08:32→21:06)
[2019-05-26 08:34] LABS: Albumin Globulin Ratio 0.8 (0.9-2); Albumin Level 2.7 gm/dl (3.4-5.0); BUN Creatinine Ratio 11.3 (10-20); Bilirubin,Total 1.2 mg/dl (0.2-1); Calcium 8.5 mg/dl (8.5-10.1); Est GFR (African American) 10.1; Est GFR (Non-African American) 8.7; Globulin 3.3 gm/dl (2.5-4.0); Potassium 5.1 mmol/L (3.5-5.1)
--- NOTE | 2019-05-26 13:41 | Nephrology Consultation ---
Date of Consultation May 26, 2019 Assessment & Plan (1) Central venous catheter in place: -Right femoral (2) Hemorrhage of arteriovenous fistula: Patient is on chronic anticoagulation. Hemato the stoma and extravasation do not appear to be extending at this time. Ultrasound was reviewed the plan of care at this point is to rest the fistula for the next 2 weeks and I will edema to improve before using for dialysis. The femoral dialysis catheter will be used in the interim. (3) Coronary artery disease: (4) Ischemic dilated cardiomyopathy: (5) Hypertension: (6) Diabetes mellitus type 2, insulin dependent: (7) Anemia: Iron will be provided with his dialysis treatment. The patient is maintained on [facility] as an outpatient. His hemoglobin was 10.5 at the end of April. He has had acute blood loss. This will be closely monitored with perspective labs. (8) ESRD (end stage renal disease) on dialysis: TTS schedule as an outpatient. The patient missed his scheduled treatment yesterday. For management of his volume status as well as hyperkalemia hemodialysis will be provided today. Orders were entered into the EMR discussed with the dialysis nurse donor center technician. The patient's prescription is 4 hours on a 180 Optiflux. He maintained a blood flow 450 with his fistula. His estimated dry weight is 108 kg. He typically dialyzes on a 3 potassium bath. Recent complications with dialysis include progressive dementia requiring frequent reorientation and Lance often moving his arm during treatment. It appears that Lance can become confused which likely resulted in infiltration of his fistula which was complicated by his anticoagulation. Overall this is a difficult situation. I discussed this at length with the patient's the risks and benefits of anticoagulation moving forward need to be considered. Additionally it is questionable whether or not the patient is going to be able to return home. At this point given his limited ability to walk and as well as his limited use of his left arm I suspect he will at least need at least some short- term placement for assistance. Patient's is understanding of this. History of Present Illness Reason for Consultation: ESRD Requesting Physician: Adali Arrington MD Attending Physician: Adali Arrington MD History of Present Illness Lance Holder is an 84-year-old male with end-stage renal disease attributed to diabetic nephropathy and hypertensive nephrosclerosis. Lance is on hemodialysis in center at [facility]. He dialyzes on a Wednesday schedule. The patient was evaluated during dialysis by Dr. Bah on May 23. Unfortunately during this treatment the patient moved his arm and infiltrated his left brachiocephalic AV fistula. When he returned to the dialysis unit for his treatment yesterday the arm was significantly edematous with a large hematoma. Staff were unable to use the arm for dialysis and the patient was brought in for dialysis catheter placement by Dr. Acosta yesterday. A right femoral tunneled catheter was placed without complications. Potassium was noted to be slightly elevated. Patient was then admitted for observation. It is noted that the patient's has concerns about her ability to take care of Lance at home. His functional status has been declining. His dementia seems to be worsening. He has use of his left arm is now significantly limited. He is having difficulty sitting up in bed due to some discomfort from the newly placed dialysis catheter. I saw and evaluated the patient this morning with his at the bedside. We coordinated a dialysis treatment for him as an inpatient today. The patient's hemoglobin is noted to be low. It had been 10.5 on May 15 as an outpatient. There are no current signs of active bleeding. There is notable ecchymosis and a large hematoma as well as significant swelling of the left upper extremity. Lance denies significant pain in the arm. The Due to dementia the patient's ability to provide medical history is limited and we obtain much of the history from review of his records as well as discussion with his . Allergies Allergy/AdvReac Type Severity Reaction Status Date / Time clindamycin AdvReac Mild Nausea Verified 05/25/19 12:53 Home Medications Home Medications Medication Instructions Recorded Confirmed Type aspirin 81 mg tablet,delayed 81 mg PO QAM 06/09/18 05/25/19 History release docusate sodium 100 mg capsule 100 mg PO BIDM 06/09/18 05/25/19 History metoprolol succinate 200 mg 200 mg PO QAM 06/09/18 05/25/19 History tablet,extended release 24 hr multivitamin,ih-[id number] 1 tab PO QAM 06/09/18 05/25/19 History polyethylene glycol 3350 17 17 gm PO DAILY PRN gm 06/09/18 05/25/19 History gram/dose oral powder Calcium 600 + D(3) 1 tab PO QAM 06/16/18 05/25/19 History GenTeal Tears Mild 1 drp OPHTHALMIC (EYE) DAILY PRN 06/16/18 05/25/19 History acetaminophen [Tylenol Extra 1,000 mg PO TID PRN 06/16/18 05/25/19 History Strength] ascorbic acid (vitamin C) [Vitamin 1,000 mg PO QAM 06/16/18 05/25/19 History C] nitroglycerin 0.4 mg sublingual 0.4 mg SL UD PRN #25 tab 01/02/19 05/25/19 History tablet cholecalciferol (vitamin D3) 25 1,000 units PO QAM 01/11/19 05/25/19 History mcg (1,000 unit) tablet gabapentin 300 mg capsule 600 mg PO BID cap 01/11/19 05/25/19 History insulin human U-100 NPH-regulr 50 units SUBCUT BID ml 01/23/19 05/25/19 History 70-30 mix 100 unit/mL subcutaneous susp bumetanide 1 mg tablet 2 mg PO BID #360 tab 03/29/19 05/25/19 Rx apixaban 2.5 mg tablet 2.5 mg PO BIDM #180 tab 05/17/19 05/25/19 Rx atorvastatin [Lipitor] 80 mg PO QPM 05/24/19 05/25/19 History levothyroxine 100 mcg PO QAM 05/24/19 05/25/19 History ranitidine HCl 150 mg PO QAM 05/24/19 05/25/19 History Patient History Medical History Actinic keratitis ARMS - SCALY; LEGS DEVELOPED OPEN WOUNDS STILL HAS SOME OPEN AREAS ON LEGS Age-related cognitive decline Broken shoulder (Acute) left shoulder feb 2019 Chronic kidney disease, stage IV (severe) [facility] ([place]) Compression fracture of lumbar vertebra Coronary artery disease S/P CABG X 4 (~2002) Dementia Diabetes IDDM DJD (degenerative joint disease) GERD (gastroesophageal reflux disease) CONTROLLED H/O prostate cancer brachytherapy treatment. Hemodialysis patient FISTULA LEFT ARM. receiving diaylsis Wednesday, & Wednesday @ [facility] History of brachytherapy History of kidney stones History of left bundle branch block (LBBB) HTN (hypertension) Hypercholesteremia Hypothyroid Ischemic cardiomyopathy s/p insertion of pacer/icd 2013. Stable. EF 55-60% 09/2017 echo. Obesity Permanent atrial fibrillation Asymptomatic per cardio 10/24/18. Rate controlled on BB, anticoagulated with Eliquis. Secondary hyperparathyroidism Sleep apnea NO LONGER USES CPAP Spinal stenosis Venous stasis Surgical History H/O four vessel coronary artery bypass graft CABG X 4 (~2002) H/O total knee replacement RIGHT History of cardioversion unsuccessful History of colonoscopy History of surgical removal of pilonidal cyst Hx of hemorrhoidectomy Presence of implantable cardioverter-defibrillator (ICD) PPM/ICD IMPLANTED 2013; [employer] LAST PACER CHECK S/P arteriovenous (AV) fistula creation left arm. Needs to start dialysis, but fistula swollen and unusable currently. Family History Sister Kidney stones Son Kidney stones Mother Diabetes Hypertension Heart disease Aunt Colon cancer Social History Preferred Language: [place] Communication Ability: Effective Visual Impairment: Limited Hearing Ability: Normal Hat Block Maker Required: No Beliefs That Will Affect Care: None marital status: Current Living Situation: Spouse current occupational status: retired Other Information That Helps Us Care for You: No Feels Safe at Home: Yes Safety Concerns: Feels Safe At This Time Smoking Status: Former smoker Tobacco Type: cigarettes ; Do You Dip or Chew Tobacco: No ; Second Hand Exposure: No ; Tobacco Cessation Education Requested by Patient: No Hx Alcohol Use: No Hx Substance Use: No Review of Systems Review of Systems: All systems reviewed & are unremarkable except as noted in HPI & below Physical Exam Constitutional: + obese and + disheveled; no acute distress Eyes: no scleral abnormality and no corneal abnormality ENMT: Mouth: no oral mucosal abnormality and oral mucous membranes not dry Neck: normal visual inspection and trachea midline Respiratory: normal respiratory effort Auscultation: lungs clear to auscultation bilaterally and + rales Cardiovascular: Rate/Rhythm: regular rate Heart Sounds: normal S1 and normal S2 Extremities: + AV fistula; no edema Musculoskeletal: Extremities: no cyanosis and no clubbing Noted ecchymosis and edema of the left upper extremity. Skin: normal turgor; no lesions Neurologic: Motor/Sensory: no tremor and no asterixis Psychiatric: Orientation: alert and oriented x 3 Results & Data Vital Signs (Past 12 Hours) Vital Signs Temp Pulse Pulse Pulse Resp BP BP 05/26/19 13:20 81 112/55 L 05/26/19 13:05 36.9 C 74 05/26/19 11:32 36.7 C 73 16 113/58 L 05/26/19 07:19 37.0 C 71 16 94/47 L 05/26/19 03:49 37.2 C 76 17 109/56 L Pulse Ox 05/26/19 13:20 05/26/19 13:05 05/26/19 11:32 96 05/26/19 07:19 95 05/26/19 03:49 95 Laboratory Results Laboratory Results - last 24 hr 05/25/19 05/25/19 05/26/19 16:45 20:54 07:02 WBC 8.05 RBC 2.47 L Hgb 8.5 L Hct 26.4 L MCV 106.9 H MCH 34.4 H MCHC 32.2 RDW Std Deviation 58.5 H RDW Coeff of Virginie 15.2 H Plt Count 167 MPV 10.3 Absolute Nucleated RBC 0.06 H Nucleated RBC % (auto) 0.7 Sodium Potassium Chloride Carbon Dioxide Anion Gap BUN Creatinine Est Cr Clr Drug Dosing Est GFR ( Amer) Est GFR (Non-Af Amer) BUN/Creatinine Ratio Glucose POC Glucose 276 H 271 H Calcium Total Bilirubin AST ALT Alkaline Phosphatase Total Protein Albumin Globulin Albumin/Globulin Ratio 05/26/19 05/26/19 05/26/19 07:02 07:29 11:48 WBC RBC Hgb Hct MCV MCH MCHC RDW Std Deviation RDW Coeff of Virginie Plt Count MPV Absolute Nucleated RBC Nucleated RBC % (auto) Sodium 136 Potassium 5.1 Chloride 100 Carbon Dioxide 26 Anion Gap 10.0 BUN 64 H D Creatinine 5.55 H* D Est Cr Clr Drug Dosing 12.0 Est GFR ( Amer) 10.1 Est GFR (Non-Af Amer) 8.7 BUN/Creatinine Ratio 11.3 Glucose 251 H POC Glucose 268 H 250 H Calcium 8.5 Total Bilirubin 1.2 H AST 23 ALT 17 Alkaline Phosphatase 163 H Total Protein 6.0 L Albumin 2.7 L Globulin 3.3 Albumin/Globulin Ratio 0.8 L PG Care Time/CCT Total # of Minutes Spent Total Time Spent with Patient: Total time spent is greater than 50% in coordination of care (as documented) at patient's floor/unit and/or counseling patient: (1) Hemorrhage of arteriovenous fistula Encounter type: initial encounter Qualified Code(s): T82.838A - Hemorrhage due to vascular prosthetic devices, implants and grafts, initial encounter
--- NOTE | 2019-05-26 16:44 | Hospitalist Progress Note ---
Date of Service May 26, 2019 Assessment & Plan (1) Chronic kidney disease, stage IV (severe): - Stage IV CKD requiring hemodialysis (ESRD) - HD on //Sat at home; last session on Wednesday. - S/p permacath placement on 05/[address] cAosta. - Nephro consulted, received HD today. - Monitor renal function daily. - Continue home Bumex 2 mg PO BID. (2) Central venous catheter in place: - Right femoral; placed on 05/[address] Acosta. - Monitor for bleeding. (3) Hemorrhage of arteriovenous fistula: - S/p permacath insertion by Dr. Acosta on 05/25. - US of aVF reviewed from 05/24/2019, no active hemorrhage at this time. - Continue Eliquis 2.5 BID, ASA 81 mg. (4) Coronary artery disease: - Continue Metoprolol, Eliquis, statin and ASA as prescribed. (5) Atrial fibrillation: - Continue Eliquis and beta alice as prescribed. (6) Ischemic dilated cardiomyopathy: - Monitored; continue home meds. (7) Pacemaker: - Followed as outpt, no indication for interrogation. (8) Hypertension: - Continue Metoprolol 200 mg qAM, Bumex 2 mg PO BID as prescribed. - BP has been intermittently low -- held beta alice this morning. (9) Hypercholesterolemia: - Continue statin as prescribed. (10) Diabetes mellitus type 2, insulin dependent: - A1C 8.3 in Mar 2019. - SSI coverage; will also add Lantus 11 units qhs due to uncontrolled levels. (11) Diabetic ulcer of toe of right foot associated with type 2 diabetes mellitus: - Consulted wound care. (12) Chronic venous insufficiency: - Continue home meds. - Followed as outpatient. (13) LBBB (left bundle branch block): - Monitored by cardiology. (14) Anemia: - Hgb trending down, was 8.5 this morning. - Continue to trend daily. (15) Hypothyroid: - Continue levothyroxine 100 mcg daily. - TSH was 1.59. (16) GERD (gastroesophageal reflux disease): - Holding Ranitidine. (17) Obesity (BMI 30-39.9): - BMI 38; encourage weight loss and exercise. (18) Sleep apnea: - Does not wear CPAP. (19) DVT prophylaxis: - Continue home Eliquis. Dispo: Med/surg with tele; discharge to rehab pending placement. Supervising Physician Co-Signing Physician Notes PA Supervision Note: I did not personally see or examine the patient today, but I verified all harris points of CATHIE Sun's assessment and plan with the following exceptions/additions: None Subjective Pt. is very weak, has difficulty ambulating. Does c/o SOB with exertion, mild non productive cough over last 3-4 days. Denies chest pain, N/V, diarrhea or constipation. Family has requested placement at discharge, would prefer [facility]. Review of Systems Review of Systems: All systems reviewed & are unremarkable except as noted in HPI & below Constitutional: + fatigue, + weakness and + anorexia; no fever and no chills Respiratory: + cough, + dyspnea, + dyspnea on exertion and + sputum production; no wheezing Cardiovascular: no chest pain, no palpitations and no edema Gastrointestinal: no abdominal pain, no nausea and no constipation Genitourinary: no difficulty urinating Musculoskeletal: no back pain and no joint pain Integumentary: no non-healing lesions Physical Exam Physical Exam: General: Resting comfortably HEENT: NC/AT; PERRLA with EOMI; [place] conjunctiva, MMM. No erythema of posterior pharynx Neck: Supple and nontender Cardiac: RRR Lungs: on room air; mild crackles and rhonchi noted in bilat lower lung moreno. Abdomen: Bowel normoactive X 4; Nontender to palpation Extremities: Warm. No edema present Neuro: No focal weakness Skin: Ecchymosis noted on LUE with mild edema. Results & Data Vital Signs (Past 12 Hours) Vital Signs Temp Pulse Pulse Pulse Resp BP BP 05/26/19 16:20 77 122/63 05/26/19 16:00 78 118/42 L 05/26/19 15:40 76 112/59 L 05/26/19 15:20 78 119/69 05/26/19 15:00 79 129/50 L 05/26/19 14:40 76 114/45 L 05/26/19 14:20 81 110/60 05/26/19 14:00 78 105/60 05/26/19 13:40 77 104/57 L 05/26/19 13:20 81 112/55 L 05/26/19 13:05 36.9 C 74 05/26/19 11:32 36.7 C 73 16 113/58 L 05/26/19 07:19 37.0 C 71 16 94/47 L Pulse Ox 05/26/19 16:20 05/26/19 16:00 05/26/19 15:40 05/26/19 15:20 05/26/19 15:00 05/26/19 14:40 05/26/19 14:20 05/26/19 14:00 05/26/19 13:40 05/26/19 13:20 05/26/19 13:05 05/26/19 11:32 96 05/26/19 07:19 95 Laboratory Results 05/26/19 05/26/19 05/26/19 Range/Units 11:48 07:29 07:02 WBC (4.8-10.8) K/uL RBC (4.7-6.1) M/uL Hgb (14.0-18.0) g/dL Hct (42-52) % MCV (80-100) fL MCH (25-34) pg MCHC (32-36) g/dL RDW Std Deviation (36.4-46.3) fL RDW Coeff of Virginie (11.5-14.5) % Plt Count (130-400) K/uL MPV (7.4-10.4) fL Absolute Nucleated RBC (0-0) K/uL Nucleated RBC % (auto) % Sodium 136 (136-145) mmol/L Potassium 5.1 (3.5-5.1) mmol/L Chloride 100 (98-107) mmol/L Carbon Dioxide 26 (21-32) mmol/L Anion Gap 10.0 (3-11) BUN 64 H D (7-18) mg/dl Creatinine 5.55 H* D (0.6-1.4) mg/dl Est Cr Clr Drug Dosing 12.0 ml/min Est GFR ( Amer) 10.1 Est GFR (Non-Af Amer) 8.7 BUN/Creatinine Ratio 11.3 (10-20) Glucose 251 H (70-99) mg/dl POC Glucose 250 H 268 H (70-99) Calcium 8.5 (8.5-10.1) mg/dl Total Bilirubin 1.2 H (0.2-1) mg/dl AST 23 (15-37) U/L ALT 17 (12-78) U/L Alkaline Phosphatase 163 H (45-117) U/L Total Protein 6.0 L (6.4-8.2) gm/dl Albumin 2.7 L (3.4-5.0) gm/dl Globulin 3.3 (2.5-4.0) gm/dl Albumin/Globulin Ratio 0.8 L (0.9-2) 05/26/19 05/25/19 05/25/19 Range/Units 07:02 20:54 16:45 WBC 8.05 (4.8-10.8) K/uL RBC 2.47 L (4.7-6.1) M/uL Hgb 8.5 L (14.0-18.0) g/dL Hct 26.4 L (42-52) % MCV 106.9 H (80-100) fL MCH 34.4 H (25-34) pg MCHC 32.2 (32-36) g/dL RDW Std Deviation 58.5 H (36.4-46.3) fL RDW Coeff of Virginie 15.2 H (11.5-14.5) % Plt Count 167 (130-400) K/uL MPV 10.3 (7.4-10.4) fL Absolute Nucleated RBC 0.06 H (0-0) K/uL Nucleated RBC % (auto) 0.7 % Sodium (136-145) mmol/L Potassium (3.5-5.1) mmol/L Chloride (98-107) mmol/L Carbon Dioxide (21-32) mmol/L Anion Gap (3-11) BUN (7-18) mg/dl Creatinine (0.6-1.4) mg/dl Est Cr Clr Drug Dosing ml/min Est GFR ( Amer) Est GFR (Non-Af Amer) BUN/Creatinine Ratio (10-20) Glucose (70-99) mg/dl POC Glucose 271 H 276 H (70-99) Calcium (8.5-10.1) mg/dl Total Bilirubin (0.2-1) mg/dl AST (15-37) U/L ALT (12-78) U/L Alkaline Phosphatase (45-117) U/L Total Protein (6.4-8.2) gm/dl Albumin (3.4-5.0) gm/dl Globulin (2.5-4.0) gm/dl Albumin/Globulin Ratio (0.9-2) PG Care Time/CCT Total # of Minutes Spent Total Time Spent with Patient: Total time spent is greater than 50% in coordination of care (as documented) at patient's floor/unit and/or counseling patient: (1) Hemorrhage of arteriovenous fistula Encounter type: initial encounter Qualified Code(s): T82.838A - Hemorrhage due to vascular prosthetic devices, implants and grafts, initial encounter
[2019-05-26] MEDS: INSULIN GLARGINE SOLOSTAR 100 UNITS/ML 3 ML PEN SC SCH (21:05)
[2019-05-26] MEDS: ATORVASTATIN 40 MG TAB PO SCH (21:07)
[2019-05-27] MEDS: LEVOTHYROXINE SODIUM 100 MCG TABLET PO SCH (05:25)
[2019-05-27] MEDS ORDERED: SODIUM CHLORIDE 0.9% 1000ML 1,000 ML IV PRN (07:00)
[2019-05-27 07:35] LABS: Hematocrit (blood only) 28.5 % (42-52); Hemoglobin 9.2 g/dL (14.0-18.0); Mean Corpuscular Hemoglobin 34.2 pg (25-34); Mean Corpuscular Hgb Conc 32.3 g/dL (32-36); Mean Corpuscular Volume 105.9 fL (80-100); Mean Platelet Volume 10.3 fL (7.4-10.4); Platelet Count 139 K/uL (130-400); RDW Coefficient of Variation 15.4 % (11.5-14.5); RDW Standard Deviation 57.7 fL (36.4-46.3); Red Blood Count 2.69 M/uL (4.7-6.1); White Blood Count 8.92 K/uL (4.8-10.8)
[2019-05-27] MEDS: DOCUSATE SODIUM 100 MG CAP PO SCH ×2 (07:58→18:00)
[2019-05-27] MEDS: CALCIUM 600MG + VIT D 400 IU TAB PO SCH (07:59)
[2019-05-27] MEDS: APIXABAN 2.5 MG TAB PO SCH ×2 (07:59→18:01)
[2019-05-27] MEDS: METOPROLOL SUCC 50MG EXT REL TAB PO SCH (07:59)
[2019-05-27] MEDS: GABAPENTIN 600 MG TAB PO SCH ×2 (07:59→21:45)
[2019-05-27] MEDS: BUMETANIDE 1 MG TAB PO SCH ×2 (07:59→18:01)
[2019-05-27] MEDS: MULTIVITAMIN TAB PO SCH (07:59)
[2019-05-27] MEDS: ASPIRIN 81 MG ECTAB PO SCH (07:59)
[2019-05-27] MEDS: ASCORBIC ACID 500 MG TAB PO SCH (08:00)
[2019-05-27] MEDS: CHOLECALCIFEROL 1,000 UNITS TAB PO SCH (08:00)
[2019-05-27] MEDS: INSULIN ASPART 100 UNITS/ML 3 ML PEN SC SCH ×4 (08:04→21:43)
[2019-05-27 08:11] LABS: Albumin Globulin Ratio 0.8 (0.9-2); Albumin Level 2.7 gm/dl (3.4-5.0); BUN Creatinine Ratio 10.3 (10-20); Bilirubin,Total 1.6 mg/dl (0.2-1); Calcium 8.8 mg/dl (8.5-10.1); Creatinine Clr Calc Pharmacy 16.5 ml/min; Est GFR (African American) 15.2; Est GFR (Non-African American) 13.1; Globulin 3.6 gm/dl (2.5-4.0); Potassium 4.3 mmol/L (3.5-5.1); Total Protein 6.3 gm/dl (6.4-8.2)
--- NOTE | 2019-05-27 12:29 | Dialysis Progress Note ---
Date of Service May 27, 2019 Assessment & Plan (1) Central venous catheter in place: -Right femoral (2) Hemorrhage of arteriovenous fistula: Patient is on chronic anticoagulation. Hemato the stoma and extravasation do not appear to be extending at this time. Ultrasound was reviewed the plan of care at this point is to rest the fistula for the next 2 weeks and I will edema to improve before using for dialysis. The femoral dialysis catheter will be used in the interim. (3) Coronary artery disease: (4) Ischemic dilated cardiomyopathy: (5) Hypertension: (6) Diabetes mellitus type 2, insulin dependent: (7) Anemia: Iron will be provided with his dialysis treatment. The patient is maintained on [facility] as an [facility]. His hemoglobin was 10.5 at the end of April. He has had acute blood loss. This will be closely monitored with perspective labs. (8) ESRD (end stage renal disease) on dialysis: End-stage renal disease on hemodialysis TTS schedule as an outpatient. Currently has a tunneled catheter for dialysis while left upper extremity is resting from recent infiltration and significant swelling. He has a baseline and dimension confusion which lately seems to be worsening and he will possibly need placement to a long-term care facility. --will plan for dialysis today as his regular schedule and then continue on a Wednesday schedule --dose meds for GFR < 10 --continue on Epogen and phosphate binder Will follow Subjective Lance was seen and examined during dialysis this morning. Denies any shortness breath or chest pain. Blood pressure relatively low but asymptomatic. Continues to have significant left upper extremity swelling. Review of Systems Review of Systems: All systems reviewed & are unremarkable except as noted in HPI & below Physical Exam Constitutional: well developed and well nourished; no acute distress Respiratory: normal respiratory effort, lungs clear to auscultation Cardiovascular: Rate/Rhythm: regular rate and regular rhythm Heart Sounds: normal S1 and normal S2 Extremities: + edema (Bilateral lower extremity and left upper extremity) Neurologic: moves all extremities and awake; not confused Psychiatric: A+Ox3, euthymic affect Results & Data Vital Signs (Past 12 Hours) Vital Signs Temp Pulse Pulse Pulse Resp BP BP 05/27/19 12:00 84 92/53 L 05/27/19 11:40 82 114/60 05/27/19 11:20 69 91/39 L 05/27/19 11:00 80 110/61 05/27/19 10:40 73 105/49 L 05/27/19 10:20 78 103/60 05/27/19 10:11 79 05/27/19 10:00 76 86/57 L 05/27/19 09:40 80 127/61 05/27/19 09:18 36.9 C 84 84 104/48 L 05/27/19 07:24 36.7 C 86 18 128/62 05/27/19 04:09 36.7 C 71 18 126/88 05/27/19 03:06 87 Pulse Ox 05/27/19 12:00 05/27/19 11:40 05/27/19 11:20 05/27/19 11:00 05/27/19 10:40 05/27/19 10:20 05/27/19 10:11 05/27/19 10:00 05/27/19 09:40 05/27/19 09:18 05/27/19 07:24 97 05/27/19 04:09 98 05/27/19 03:06 (1) Hemorrhage of arteriovenous fistula Encounter type: initial encounter Qualified Code(s): T82.838A - Hemorrhage due to vascular prosthetic devices, implants and grafts, initial encounter
--- NOTE | 2019-05-27 15:09 | Hospitalist Progress Note ---
Date of Service May 27, 2019 Assessment & Plan (1) Chronic kidney disease, stage IV (severe): - Stage IV CKD requiring hemodialysis (ESRD) - HD on //Sat at home; received HD today, continue current schedule. - S/p permacath placement on 05/[address] cAosta. Will need to rest fistula for ~2 weeks.. - Nephro consulted, appreciate input. - Monitor renal function daily. - Continue home Bumex 2 mg PO BID. (2) Central venous catheter in place: - Right femoral; placed on 05/[address] Acosta. - Monitor for bleeding. (3) Hemorrhage of arteriovenous fistula: - S/p permacath insertion by Dr. Acosta on 05/25. - US of aVF reviewed from 05/24/2019, no active hemorrhage at this time. - Continue Eliquis 2.5 BID, ASA 81 mg. (4) Elevated bilirubin: - T. bili trending up, was 1.6 today (acute elevation). - Alk phos also elevated, was 179 (chronically elevated at home) - Will continue to monitor LFTs - consider RUQ US for evaluation. (5) Coronary artery disease: - Continue Metoprolol, Eliquis, statin and ASA as prescribed. (6) Atrial fibrillation: - Continue Eliquis and beta alice as prescribed. (7) Ischemic dilated cardiomyopathy: - Monitored; continue home meds. (8) Pacemaker: - Followed as outpt, no indication for interrogation. (9) Hypertension: - Continue Metoprolol 200 mg qAM, Bumex 2 mg PO BID as prescribed. (10) Hypercholesterolemia: - Continue statin as prescribed. (11) Diabetes mellitus type 2, insulin dependent: - A1C 8.3 in Mar 2019. - SSI coverage; added Lantus 11 units qhs, titrate if needed for hyperglycemia. (12) Diabetic ulcer of toe of right foot associated with type 2 diabetes mellitus: - Consulted wound care. (13) Chronic venous insufficiency: - Continue home meds. - Followed as outpatient. (14) LBBB (left bundle branch block): - Monitored by cardiology. (15) Anemia: - Hgb is currently at baseline, monitor intermittently. (16) Hypothyroid: - Continue levothyroxine 100 mcg daily. - TSH was 1.59. (17) GERD (gastroesophageal reflux disease): - Holding Ranitidine. (18) Obesity (BMI 30-39.9): - BMI 38; encourage weight loss and exercise. (19) Sleep apnea: - Does not wear CPAP. (20) DVT prophylaxis: - Continue home Eliquis. Dispo: Med/surg with tele; discharge to rehab pending placement - family has [facility]. Supervising Physician Co-Signing Physician Notes PA Supervision Note: I did not personally see or examine the patient today, but I verified all harris points of CATHIE Sun's assessment and plan with the following exceptions/additions: None Subjective Pt. reports being fatigued and weak -- PT/OT recommending rehab. Denies chest pain, SOB, or LE edema. LUE swelling/bruising is improving. Review of Systems Review of Systems: All systems reviewed & are unremarkable except as noted in HPI & below Constitutional: + fatigue and + weakness; no fever, no chills and no anorexia Respiratory: no cough, no dyspnea, no dyspnea on exertion and no wheezing Cardiovascular: no chest pain and no palpitations Gastrointestinal: no abdominal pain, no nausea and no constipation Genitourinary: no difficulty urinating Physical Exam Physical Exam: General: Resting comfortably HEENT: NC/AT; PERRLA with EOMI; [place] conjunctiva, MMM. No erythema of posterior pharynx Neck: Supple and nontender Cardiac: RRR Lungs: on room air; CTA throughout. Abdomen: Bowel normoactive X 4; Nontender to palpation Extremities: Warm. No edema present Neuro: No focal weakness Skin: Ecchymosis and mild LUE edema. Results & Data Vital Signs (Past 12 Hours) Vital Signs Temp Pulse Pulse Pulse Resp BP BP 05/27/19 14:55 36.7 C 88 20 124/72 05/27/19 13:18 37.1 C 69 114/68 05/27/19 13:00 92 H 101/68 05/27/19 12:40 67 140/98 05/27/19 12:20 81 110/60 05/27/19 12:00 84 92/53 L 05/27/19 11:40 82 114/60 05/27/19 11:20 69 91/39 L 05/27/19 11:00 80 110/61 05/27/19 10:40 73 105/49 L 05/27/19 10:20 78 103/60 05/27/19 10:11 79 05/27/19 10:00 76 86/57 L 05/27/19 09:40 80 127/61 05/27/19 09:18 36.9 C 84 84 104/48 L 05/27/19 07:24 36.7 C 86 18 128/62 05/27/19 04:09 36.7 C 71 18 126/88 05/27/19 03:06 87 Pulse Ox 05/27/19 14:55 94 05/27/19 13:18 05/27/19 13:00 05/27/19 12:40 05/27/19 12:20 05/27/19 12:00 05/27/19 11:40 05/27/19 11:20 05/27/19 11:00 05/27/19 10:40 05/27/19 10:20 05/27/19 10:11 05/27/19 10:00 05/27/19 09:40 05/27/19 09:18 05/27/19 07:24 97 05/27/19 04:09 98 05/27/19 03:06 Laboratory Results 05/27/19 05/27/19 05/27/19 Range/Units 13:21 07:19 07:19 WBC 8.92 (4.8-10.8) K/uL RBC 2.69 L (4.7-6.1) M/uL Hgb 9.2 L (14.0-18.0) g/dL Hct 28.5 L (42-52) % MCV 105.9 H (80-100) fL MCH 34.2 H (25-34) pg MCHC 32.3 (32-36) g/dL RDW Std Deviation 57.7 H (36.4-46.3) fL RDW Coeff of Virginie 15.4 H (11.5-14.5) % Plt Count 139 (130-400) K/uL MPV 10.3 (7.4-10.4) fL Sodium 136 (136-145) mmol/L Potassium 4.3 D (3.5-5.1) mmol/L Chloride 102 (98-107) mmol/L Carbon Dioxide 25 (21-32) mmol/L Anion Gap 9.0 (3-11) BUN 41 H (7-18) mg/dl Creatinine 3.97 H D (0.6-1.4) mg/dl Est Cr Clr Drug Dosing 16.5 ml/min Est GFR ( Amer) 15.2 Est GFR (Non-Af Amer) 13.1 BUN/Creatinine Ratio 10.3 (10-20) Glucose 197 H (70-99) mg/dl POC Glucose 176 H (70-99) Calcium 8.8 (8.5-10.1) mg/dl Total Bilirubin 1.6 H (0.2-1) mg/dl AST 32 (15-37) U/L ALT 16 (12-78) U/L Alkaline Phosphatase 179 H (45-117) U/L Total Protein 6.3 L (6.4-8.2) gm/dl Albumin 2.7 L (3.4-5.0) gm/dl Globulin 3.6 (2.5-4.0) gm/dl Albumin/Globulin Ratio 0.8 L (0.9-2) 05/27/19 05/26/19 05/26/19 Range/Units 07:18 20:52 18:15 WBC (4.8-10.8) K/uL RBC (4.7-6.1) M/uL Hgb (14.0-18.0) g/dL Hct (42-52) % MCV (80-100) fL MCH (25-34) pg MCHC (32-36) g/dL RDW Std Deviation (36.4-46.3) fL RDW Coeff of Virginie (11.5-14.5) % Plt Count (130-400) K/uL MPV (7.4-10.4) fL Sodium (136-145) mmol/L Potassium (3.5-5.1) mmol/L Chloride (98-107) mmol/L Carbon Dioxide (21-32) mmol/L Anion Gap (3-11) BUN (7-18) mg/dl Creatinine (0.6-1.4) mg/dl Est Cr Clr Drug Dosing ml/min Est GFR ( Amer) Est GFR (Non-Af Amer) BUN/Creatinine Ratio (10-20) Glucose (70-99) mg/dl POC Glucose 191 H 213 H 181 H (70-99) Calcium (8.5-10.1) mg/dl Total Bilirubin (0.2-1) mg/dl AST (15-37) U/L ALT (12-78) U/L Alkaline Phosphatase (45-117) U/L Total Protein (6.4-8.2) gm/dl Albumin (3.4-5.0) gm/dl Globulin (2.5-4.0) gm/dl Albumin/Globulin Ratio (0.9-2) PG Care Time/CCT Total # of Minutes Spent Total Time Spent with Patient: Total time spent is greater than 50% in coordination of care (as documented) at patient's floor/unit and/or counseling patient: (1) Hemorrhage of arteriovenous fistula Encounter type: initial encounter Qualified Code(s): T82.838A - Hemorrhage due to vascular prosthetic devices, implants and grafts, initial encounter
--- NOTE | 2019-05-27 18:17 | Communication Note ---
Date of Service: May 27, 2019 Pt. fell this evening -- he is confused, cannot recall falling but was found at bedside by nursing staff. Bedside nurse reports she found patient lying supine on the ground, his legs underneath the bed. The patient states he was "trying to move furniture", thus the reason he was getting out of bed. He denies hitting his head but his history is not completely accurate. Pt. has developed increased confusion during this admission, likely related to hospital delirium. Physical exam was benign for acute injuries with exception of abrasion on left knee with mild bleeding. Plan: Will order CT head without contrast to evaluate for acute hemorrhage in setting of fall on anticoagulation. U/a also pending in setting of acute confusion to rule out infection.
--- NOTE | 2019-05-27 18:41 | CT Scan Report ---
CT head/brain wo con CLINICAL HISTORY: 84 years-old Male with Fall, on anticoagulation. Acute head injury status post fal l TECHNIQUE: Multiple axial CT images of the head were obtained without contrast. A dose lowering tech nique was utilized adhering to the principles of ALARA. CT DOSE: 1621.66 mGy.cm COMPARISON: Head CT 03/01/2019 FINDINGS: No acute intracranial hemorrhage, midline shift, intra-axial mass, hydrocephalus, territorial ischemi a or abnormal extra-axial collection. Unchanged 1.3 cm calcified extra-axial mass adjacent to left fr ontal lobe suggestive of a meningioma. Age-related involutional changes redemonstrated. Cerebral vasc ular calcifications are noted. The calvarium is intact. Mastoid air cells are clear. Minimal mucosal thickening of the left maxilla ry sinus. Prior bilateral cataract repair. Soft tissues are within normal limits. IMPRESSION: No acute intracranial abnormality or calvarial fracture. The above report was generated using voice recognition software. It may contain grammatical, syntax o r spelling errors. Electronically signed by: Joselo Govea M.D. 05/27/2019 6:40 PM
[2019-05-27] MEDS: INSULIN GLARGINE SOLOSTAR 100 UNITS/ML 3 ML PEN SC SCH (21:44)
[2019-05-27] MEDS: ATORVASTATIN 40 MG TAB PO SCH (21:45)
[2019-05-27 22:43] LABS: Appearance Urine Clear (Clear); Bacteria Urine Automated Negative (Negative); Bilirubin Urine Negative (Negative); Blood Urine Trace (Negative); Color Urine Dark Yellow; Glucose Urine UA Negative (Negative); Ketones Urine Trace (Negative); Leukocyte Esterase Urine Trace (Negative); Nitrite Urine Negative (Negative); Protein Urine 1+ (Negative); Specific Gravity Urine 1.015 (1.000-1.030); Urobilinogen Urine Negative (Negative)
[2019-05-28] MEDS: LEVOTHYROXINE SODIUM 100 MCG TABLET PO SCH (06:04)
[2019-05-28 06:45] LABS: Hemoglobin 8.8 g/dL (14.0-18.0); Mean Corpuscular Hemoglobin 33.8 pg (25-34); Mean Corpuscular Hgb Conc 32.6 g/dL (32-36); Mean Corpuscular Volume 103.8 fL (80-100); Mean Platelet Volume 10.1 fL (7.4-10.4); Nucleated RBC # (auto) 0.05 K/uL (0-0); Nucleated RBC % (auto) 0.5 %; Platelet Count 143 K/uL (130-400); RDW Coefficient of Variation 15.4 % (11.5-14.5); RDW Standard Deviation 55.2 fL (36.4-46.3); White Blood Count 9.38 K/uL (4.8-10.8)
[2019-05-28 07:22] LABS: Albumin Level 2.5 gm/dl (3.4-5.0); BUN Creatinine Ratio 11.2 (10-20); Bilirubin Direct 0.5 mg/dl (0-0.2); Calcium 8.3 mg/dl (8.5-10.1); Creatinine Clr Calc Pharmacy 18.8 ml/min; Est GFR (African American) 17.7; Est GFR (Non-African American) 15.2; Potassium 3.8 mmol/L (3.5-5.1)
[2019-05-28 07:25] LABS: Albumin Globulin Ratio 0.7 (0.9-2); Bilirubin,Total 1.4 mg/dl (0.2-1); Globulin 3.4 gm/dl (2.5-4.0); Total Protein 5.9 gm/dl (6.4-8.2)
[2019-05-28] MEDS: GABAPENTIN 600 MG TAB PO SCH ×2 (07:27→21:58)
[2019-05-28] MEDS: ASPIRIN 81 MG ECTAB PO SCH (07:27)
[2019-05-28] MEDS: CHOLECALCIFEROL 1,000 UNITS TAB PO SCH (07:27)
[2019-05-28] MEDS: BUMETANIDE 1 MG TAB PO SCH ×2 (07:27→17:26)
[2019-05-28] MEDS: METOPROLOL SUCC 50MG EXT REL TAB PO SCH (07:27)
[2019-05-28] MEDS: ASCORBIC ACID 500 MG TAB PO SCH (07:27)
[2019-05-28] MEDS: MULTIVITAMIN TAB PO SCH (07:27)
[2019-05-28] MEDS: CALCIUM 600MG + VIT D 400 IU TAB PO SCH (07:27)
[2019-05-28] MEDS: DOCUSATE SODIUM 100 MG CAP PO SCH ×2 (07:28→17:26)
[2019-05-28] MEDS: APIXABAN 2.5 MG TAB PO SCH ×2 (07:28→17:26)
[2019-05-28] MEDS: INSULIN ASPART 100 UNITS/ML 3 ML PEN SC SCH ×4 (08:13→21:54)
[2019-05-28] MEDS: INSULIN GLARGINE SOLOSTAR 100 UNITS/ML 3 ML PEN SC SCH ×2 (08:14→21:56)
--- NOTE | 2019-05-28 10:46 | Hospitalist Progress Note ---
Date of Service May 28, 2019 Assessment & Plan (1) Chronic kidney disease, stage IV (severe): - Stage IV CKD requiring hemodialysis (ESRD) - HD on //Sat at home; most recent treatment on Wednesday, continue current schedule. - S/p permacath placement on 05/[address] Acosta. Will need to rest fistula for ~2 weeks.. - Nephro consulted, appreciate input. - Monitor renal function daily. - Continue home Bumex 2 mg PO BID - monitor volume status, has been intermitttently hypotensive. (2) Fall: - Pt. fell last evening - reports he was "trying to move furniture" and was found at bedside lying supine with his legs under the bed. - Minor knee abrasion noted, otherwise no acute injuries. - Head CT was negative for acute hemorrhage; does have acute confusion likely related to hospital delirium. - PT/OT -- recommending inpatient rehab at discharge. - Fall precautions. (3) Dementia: - Memory loss issues at home; has increasing confusion during this admission. - U/a negative; CT head on 05/27 following fall was also negative. - Acute issues likely related to hospital delirium. - Re-orient patient frequently. (4) Central venous catheter in place: - Right femoral; placed on 05/[address] Acosta. - No evidence of acute bleeding noted at this time. (5) Hemorrhage of arteriovenous fistula: - S/p permacath insertion by Dr. Acosta on 05/25. - US of aVF reviewed from 05/24/2019, no active hemorrhage at this time. - Continue Eliquis 2.5 BID, ASA 81 mg. (6) Elevated bilirubin: - T. bili trending up, peaked at 1.6 and now trending down. - Alk phos also elevated (chronically elevated at home) - Will continue to monitor LFTs; denies abd pain. Will hold RUQ US imaging. (7) Coronary artery disease: - Continue Metoprolol, Eliquis, statin and ASA as prescribed. (8) Atrial fibrillation: - Continue Eliquis and beta alice as prescribed. (9) Ischemic dilated cardiomyopathy: - Most recent echo showed normal EF, now resolved. (10) Pacemaker: - Followed as outpt, no indication for interrogation. (11) Hypertension: - Continue Metoprolol 200 mg qAM, Bumex 2 mg PO BID as prescribed. - Has been intermittently hypotensive, will monitor. (12) Hypercholesterolemia: - Continue statin as prescribed. 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 - SSI coverage; BG >200's, convert to Lantus to 6 mg BID and titrate as needed. (14) Diabetic ulcer of toe of right foot associated with type 2 diabetes mellitus: - Consulted wound care. (15) Chronic venous insufficiency: - Continue home meds. - Followed as outpatient. (16) LBBB (left bundle branch block): - Monitored by cardiology. (17) Anemia: - Hgb is currently at baseline, monitor frequently. - Receives iron infusions during HD. (18) Hypothyroid: - Continue levothyroxine 100 mcg daily. - TSH was 1.59. (19) GERD (gastroesophageal reflux disease): - Holding Ranitidine. (20) Obesity (BMI 30-39.9): - BMI 38; encourage weight loss and exercise. (21) Sleep apnea: - Does not wear CPAP. (22) DVT prophylaxis: - Continue home Eliquis. Dispo: Med/surg with tele; discharge to rehab pending placement - family has requested [facility]. Supervising Physician Co-Signing Physician Notes PA Supervision Note: I did not personally see or examine the patient today, but I verified all harris points of CATHIE Sun's assessment and plan with the following exceptions/additions: None Subjective Pt. is confused this morning, does not remember events from last evening (falling to ground, knee abrasion). Does have chronic memory issues, likely dementia, and is developing acute hospital delirium. U/a was negative for infection. Head CT post fall also negative. He denies chest pain, SOB. Plan for placement pending acceptance, hopefully over next 24-48 hours. Review of Systems Review of Systems: All systems reviewed & are unremarkable except as noted in HPI & below Constitutional: + fatigue and + weakness; no fever, no chills and no anorexia Respiratory: no cough, no dyspnea, no dyspnea on exertion and no wheezing Cardiovascular: no chest pain, no palpitations and no edema Gastrointestinal: + constipation; no abdominal pain and no nausea Genitourinary: no difficulty urinating Musculoskeletal: no back pain and no joint pain Integumentary: + wounds (Left knee abrasion) Physical Exam Physical Exam: General: Resting comfortably, no acute distress. HEENT: NC/AT; PERRLA with EOMI; Sumrall conjunctiva, MMM. No erythema of posterior pharynx Neck: Supple and nontender Cardiac: RRR Lungs: on room air; CTA throughout. Abdomen: Bowel normoactive X 4; Nontender to palpation Extremities: Warm. Edema in LUE as noted below. Neuro: Periods of confusion but is alert to person and place, remainder of neuro exam is benign. Skin: Ecchymosis and edema noted in LUE 2/2 fistula/hemorrhage. Results & Data Vital Signs (Past 12 Hours) Vital Signs Temp Pulse Pulse Resp BP Pulse Ox 05/28/19 07:49 36.5 C 80 18 115/62 98 05/28/19 04:01 36.8 C 74 18 112/58 L 95 05/28/19 02:21 82 05/28/19 00:24 36.4 C L 78 17 152/76 H 93 Laboratory Results 05/28/19 05/28/19 05/28/19 Range/Units 07:32 06:21 06:21 WBC 9.38 (4.8-10.8) K/uL RBC 2.60 L (4.7-6.1) M/uL Hgb 8.8 L (14.0-18.0) g/dL Hct 27.0 L (42-52) % MCV 103.8 H (80-100) fL MCH 33.8 (25-34) pg MCHC 32.6 (32-36) g/dL RDW Std Deviation 55.2 H (36.4-46.3) fL RDW Coeff of Virginie 15.4 H (11.5-14.5) % Plt Count 143 (130-400) K/uL MPV 10.1 (7.4-10.4) fL Absolute Nucleated RBC 0.05 H (0-0) K/uL Nucleated RBC % (auto) 0.5 % Sodium 134 L (136-145) mmol/L Potassium 3.8 (3.5-5.1) mmol/L Chloride 100 (98-107) mmol/L Carbon Dioxide 29 (21-32) mmol/L Anion Gap 5.0 (3-11) BUN 39 H (7-18) mg/dl Creatinine 3.50 H D (0.6-1.4) mg/dl Est Cr Clr Drug Dosing 18.8 ml/min Est GFR ( Amer) 17.7 Est GFR (Non-Af Amer) 15.2 BUN/Creatinine Ratio 11.2 (10-20) Glucose 164 H (70-99) mg/dl POC Glucose 183 H (70-99) Calcium 8.3 L (8.5-10.1) mg/dl Total Bilirubin 1.4 H (0.2-1) mg/dl Direct Bilirubin 0.5 H (0-0.2) mg/dl AST 35 (15-37) U/L ALT 19 (12-78) U/L Alkaline Phosphatase 170 H (45-117) U/L Total Protein 5.9 L (6.4-8.2) gm/dl Albumin 2.5 L (3.4-5.0) gm/dl Globulin 3.4 (2.5-4.0) gm/dl Albumin/Globulin Ratio 0.7 L (0.9-2) Urine Color Urine Appearance (Clear) Urine pH (4.5-7.5) Ur Specific Melvin (1.000-1.030) Urine Protein (Negative) Urine Glucose (UA) (Negative) Urine Ketones (Negative) Urine Blood (Negative) Urine Nitrite (Negative) Urine Bilirubin (Negative) Urine Urobilinogen (Negative) Ur Leukocyte Esterase (Negative) Urine WBC (Auto) (0-5) /hpf Urine RBC (Auto) (0-4) /hpf U Hyaline Cast (Auto) (0-5) /lpf U Epithel Cells (Auto) (0-5) /lpf Urine Bacteria (Auto) (Negative) 05/27/19 05/27/19 05/27/19 Range/Units 21:52 20:37 16:17 WBC (4.8-10.8) K/uL RBC (4.7-6.1) M/uL Hgb (14.0-18.0) g/dL Hct (42-52) % MCV (80-100) fL MCH (25-34) pg MCHC (32-36) g/dL RDW Std Deviation (36.4-46.3) fL RDW Coeff of Virginie (11.5-14.5) % Plt Count (130-400) K/uL MPV (7.4-10.4) fL Absolute Nucleated RBC (0-0) K/uL Nucleated RBC % (auto) % Sodium (136-145) mmol/L Potassium (3.5-5.1) mmol/L Chloride (98-107) mmol/L Carbon Dioxide (21-32) mmol/L Anion Gap (3-11) BUN (7-18) mg/dl Creatinine (0.6-1.4) mg/dl Est Cr Clr Drug Dosing ml/min Est GFR ( Amer) Est GFR (Non-Af Amer) BUN/Creatinine Ratio (10-20) Glucose (70-99) mg/dl POC Glucose 273 H 242 H (70-99) Calcium (8.5-10.1) mg/dl Total Bilirubin (0.2-1) mg/dl Direct Bilirubin (0-0.2) mg/dl AST (15-37) U/L ALT (12-78) U/L Alkaline Phosphatase (45-117) U/L Total Protein (6.4-8.2) gm/dl Albumin (3.4-5.0) gm/dl Globulin (2.5-4.0) gm/dl Albumin/Globulin Ratio (0.9-2) Urine Color Dark Yellow Urine Appearance Clear (Clear) Urine pH 5.0 (4.5-7.5) Ur Specific Melvin 1.015 (1.000-1.030) Urine Protein 1+ H (Negative) Urine Glucose (UA) Negative (Negative) Urine Ketones Trace H (Negative) Urine Blood Trace H (Negative) Urine Nitrite Negative (Negative) Urine Bilirubin Negative (Negative) Urine Urobilinogen Negative (Negative) Ur Leukocyte Esterase Trace H (Negative) Urine WBC (Auto) 1-5 (0-5) /hpf Urine RBC (Auto) 5-10 H (0-4) /hpf U Hyaline Cast (Auto) 5-10 H (0-5) /lpf U Epithel Cells (Auto) 5-10 H (0-5) /lpf Urine Bacteria (Auto) Negative (Negative) 05/27/19 Range/Units 13:21 WBC (4.8-10.8) K/uL RBC (4.7-6.1) M/uL Hgb (14.0-18.0) g/dL Hct (42-52) % MCV (80-100) fL MCH (25-34) pg MCHC (32-36) g/dL RDW Std Deviation (36.4-46.3) fL RDW Coeff of Virginie (11.5-14.5) % Plt Count (130-400) K/uL MPV (7.4-10.4) fL Absolute Nucleated RBC (0-0) K/uL Nucleated RBC % (auto) % Sodium (136-145) mmol/L Potassium (3.5-5.1) mmol/L Chloride (98-107) mmol/L Carbon Dioxide (21-32) mmol/L Anion Gap (3-11) BUN (7-18) mg/dl Creatinine (0.6-1.4) mg/dl Est Cr Clr Drug Dosing ml/min Est GFR ( Amer) Est GFR (Non-Af Amer) BUN/Creatinine Ratio (10-20) Glucose (70-99) mg/dl POC Glucose 176 H (70-99) Calcium (8.5-10.1) mg/dl Total Bilirubin (0.2-1) mg/dl Direct Bilirubin (0-0.2) mg/dl AST (15-37) U/L ALT (12-78) U/L Alkaline Phosphatase (45-117) U/L Total Protein (6.4-8.2) gm/dl Albumin (3.4-5.0) gm/dl Globulin (2.5-4.0) gm/dl Albumin/Globulin Ratio (0.9-2) Urine Color Urine Appearance (Clear) Urine pH (4.5-7.5) Ur Specific Melvin (1.000-1.030) Urine Protein (Negative) Urine Glucose (UA) (Negative) Urine Ketones (Negative) Urine Blood (Negative) Urine Nitrite (Negative) Urine Bilirubin (Negative) Urine Urobilinogen (Negative) Ur Leukocyte Esterase (Negative) Urine WBC (Auto) (0-5) /hpf Urine RBC (Auto) (0-4) /hpf U Hyaline Cast (Auto) (0-5) /lpf U Epithel Cells (Auto) (0-5) /lpf Urine Bacteria (Auto) (Negative) PG Care Time/CCT Total # of Minutes Spent Total Time Spent with Patient: Total time spent is greater than 50% in coordination of care (as documented) at patient's floor/unit and/or counseling patient: (1) Hemorrhage of arteriovenous fistula Encounter type: initial encounter Qualified Code(s): T82.838A - Hemorrhage due to vascular prosthetic devices, implants and grafts, initial encounter
--- NOTE | 2019-05-28 11:01 | Nephrology Progress Note ---
Date of Service May 28, 2019 Assessment & Plan (1) Central venous catheter in place: -Right femoral (2) Hemorrhage of arteriovenous fistula: Patient is on chronic anticoagulation. Hemato the stoma and extravasation do not appear to be extending at this time. Ultrasound was reviewed the plan of care at this point is to rest the fistula for the next 2 weeks and I will edema to improve before using for dialysis. The femoral dialysis catheter will be used in the interim. (3) Coronary artery disease: (4) Ischemic dilated cardiomyopathy: (5) Hypertension: (6) Diabetes mellitus type 2, insulin dependent: (7) Anemia: Iron will be provided with his dialysis treatment. The patient is maintained on [facility] as an outpatient. His hemoglobin was 10.5 at the end of April. He has had acute blood loss. This will be closely monitored with perspective labs. (8) ESRD (end stage renal disease) on dialysis: End-stage renal disease on hemodialysis TTS schedule as an outpatient. Currently has a tunneled catheter for dialysis while left upper extremity is resting from recent infiltration and significant swelling. He has a baseline and dimension confusion which lately seems to be worsening and he will possibly need placement to a long-term care facility. Waiting for snf placement to [facility] Currently blood pressure, volume status and electrolyte acceptable. Had dialysis yesterday. --next dialysis Wednesday as his regular schedule via tunneled dialysis catheter while AV fistula being rested for recent infiltration and swelling. --dose meds for GFR < 10 --continue on Epogen and phosphate binder Will follow Subjective Lance was seen and examined this morning. He was sleepy but easily arousable however continues to be somewhat confused. Denies any shortness breath or chest pain. Blood pressure well controlled.. Continues to have significant left upper extremity swelling. Review of Systems Review of Systems: Unobtainable due to mental health condition Physical Exam Constitutional: well developed and well nourished; no acute distress Respiratory: normal respiratory effort, lungs clear to auscultation Cardiovascular: Rate/Rhythm: regular rate and regular rhythm Heart Sounds: normal S1 and normal S2 Extremities: + edema (Bilateral lower extremity and left upper extremity) Neurologic: moves all extremities and awake; not confused Psychiatric: A+Ox3, euthymic affect Results & Data Vital Signs (Past 12 Hours) Vital Signs Temp Pulse Pulse Resp BP Pulse Ox 05/28/19 10:44 36.7 C 68 18 124/75 96 05/28/19 07:49 36.5 C 80 18 115/62 98 05/28/19 04:01 36.8 C 74 18 112/58 L 95 05/28/19 02:21 82 05/28/19 00:24 36.4 C L 78 17 152/76 H 93 PG Care Time/CCT Total # of Minutes Spent Total Time Spent with Patient: Total time spent is greater than 50% in coordination of care (as documented) at patient's floor/unit and/or counseling patient: (1) Hemorrhage of arteriovenous fistula Encounter type: initial encounter Qualified Code(s): T82.838A - Hemorrhage due to vascular prosthetic devices, implants and grafts, initial encounter
[2019-05-28] MEDS: ATORVASTATIN 40 MG TAB PO SCH (21:58)
[2019-05-29] MEDS: LEVOTHYROXINE SODIUM 100 MCG TABLET PO SCH (06:20)
[2019-05-29 07:19] LABS: Hematocrit (blood only) 27.7 % (42-52); Hemoglobin 9.1 g/dL (14.0-18.0); Mean Corpuscular Hemoglobin 34.5 pg (25-34); Mean Corpuscular Hgb Conc 32.9 g/dL (32-36); Mean Corpuscular Volume 104.9 fL (80-100); Mean Platelet Volume 9.6 fL (7.4-10.4); Nucleated RBC # (auto) 0.04 K/uL (0-0); Nucleated RBC % (auto) 0.5 %; Platelet Count 165 K/uL (130-400); RDW Coefficient of Variation 15.5 % (11.5-14.5); RDW Standard Deviation 57.2 fL (36.4-46.3); Red Blood Count 2.64 M/uL (4.7-6.1); White Blood Count 8.71 K/uL (4.8-10.8)
[2019-05-29] MEDS: APIXABAN 2.5 MG TAB PO SCH ×2 (07:47→18:15)
[2019-05-29] MEDS: DOCUSATE SODIUM 100 MG CAP PO SCH ×2 (07:47→18:16)
[2019-05-29] MEDS: CALCIUM 600MG + VIT D 400 IU TAB PO SCH (07:48)
[2019-05-29] MEDS: MULTIVITAMIN TAB PO SCH (07:48)
[2019-05-29] MEDS: ASPIRIN 81 MG ECTAB PO SCH (07:48)
[2019-05-29] MEDS: ASCORBIC ACID 500 MG TAB PO SCH (07:49)
[2019-05-29] MEDS: GABAPENTIN 600 MG TAB PO SCH ×2 (07:49→21:19)
[2019-05-29] MEDS: BUMETANIDE 1 MG TAB PO SCH ×2 (07:50→18:15)
[2019-05-29] MEDS: CHOLECALCIFEROL 1,000 UNITS TAB PO SCH (07:50)
[2019-05-29] MEDS: METOPROLOL SUCC 50MG EXT REL TAB PO SCH (07:51)
[2019-05-29 08:09] LABS: BUN Creatinine Ratio 13.9 (10-20); Calcium 8.3 mg/dl (8.5-10.1); Creatinine Clr Calc Pharmacy 13.7 ml/min; Est GFR (African American) 12.1; Est GFR (Non-African American) 10.4
[2019-05-29 08:10] LABS: Albumin Level 2.4 gm/dl (3.4-5.0)
[2019-05-29] MEDS: INSULIN ASPART 100 UNITS/ML 3 ML PEN SC SCH ×4 (08:14→21:20)
[2019-05-29] MEDS: INSULIN GLARGINE SOLOSTAR 100 UNITS/ML 3 ML PEN SC SCH ×2 (08:15→21:20)
--- NOTE | 2019-05-29 11:18 | Nephrology Progress Note ---
Date of Service May 29, 2019 Assessment & Plan (1) ESRD (end stage renal disease) on dialysis: End-stage renal disease on hemodialysis TTS schedule as an outpatient. Currently has a tunneled catheter for dialysis while left upper extremity is resting from recent infiltration and significant swelling. He has a baseline and dimension confusion which lately seems to be worsening and he will possibly need placement to a long-term care facility. Waiting for snf placement to [facility] -- Volume status and electrolyte balance acceptable at this time. No acute indication for HD today -- Will schedule next HD for am using femoral catheter (2) Central venous catheter in place: -- R femoral THC in place (3) Hemorrhage of arteriovenous fistula: -- Patient is on chronic anticoagulation due to atrial fibrillation (4) Anemia: -- Will provide DERRICK w/ HD (5) Ischemic dilated cardiomyopathy: (6) Hypertension: (7) Diabetes mellitus type 2, insulin dependent: Subjective Mr. Holder was seen & examined in his hospital room this morning. He was alert and oriented to self and place but not month. He voiced no medical concerns. Review of Systems Constitutional: + weakness; no fever Eyes: no worsening vision and no problem reported Ear, Nose, Mouth, Throat: no problem reported Respiratory: no cough and no dyspnea Cardiovascular: no chest pain, no palpitations and no edema Gastrointestinal: no abdominal pain, no nausea, no vomiting and no diarrhea/loose stools Genitourinary: no hematuria Musculoskeletal: no back pain Integumentary: no rash Neurologic: + confusion Physical Exam Constitutional: + frail appearing Eyes: PERRL, conjunctivae normal, anicteric sclerae ENMT: external ear and nose normal, oropharynx normal Neck: trachea midline, no thyromegaly Respiratory: normal respiratory effort, lungs clear to auscultation Cardiovascular: Rate/Rhythm: regular rate and regular rhythm Extremities: + edema (L arm w/ large hematoma surrounding AVF. Fistula has + bruit) Gastrointestinal (Abdomen): normal bowel sounds, soft, nontender, no hepatosplenomegaly Skin: no rashes, warm and dry Neurologic: awake and + confused Results & Data Vital Signs (Past 12 Hours) Vital Signs Temp Pulse Pulse Resp BP Pulse Ox 05/29/19 07:56 37.0 C 73 18 115/65 98 05/29/19 07:54 82 173/50 H 12/09/19 04:01 36.8 C 88 20 127/62 93 05/29/19 03:40 74 05/29/19 00:18 36.8 C 90 19 159/72 H 90 Laboratory Results Laboratory Tests 05/29/19 05/29/19 07:07 07:07 WBC 8.71 Hgb 9.1 L Hct 27.7 L Plt Count 165 Sodium 134 L Potassium 4.0 Chloride 100 Carbon Dioxide 24 BUN 67 H D Creatinine 4.80 H* D Glucose 178 H PG Care Time/CCT Total # of Minutes Spent Total Time Spent with Patient: Total time spent is greater than 50% in coordination of care (as documented) at patient's floor/unit and/or counseling patient: (1) Hemorrhage of arteriovenous fistula Encounter type: initial encounter Qualified Code(s): T82.838A - Hemorrhage due to vascular prosthetic devices, implants and grafts, initial encounter
--- NOTE | 2019-05-29 17:12 | Hospitalist Progress Note ---
Date of Service May 29, 2019 Assessment & Plan (1) Chronic kidney disease, stage IV (severe): - Stage IV CKD requiring hemodialysis (ESRD) - HD on //Sat at home; most recent treatment on Wednesday, continue current schedule. - S/p permacath placement on 05/[address] Acosta. Will need to rest fistula for ~2 weeks.. - Nephro consulted, appreciate input. - Monitor renal function daily. - Continue home Bumex 2 mg PO BID - monitor volume status, hypotension episodes have improved (2) Fall: - Pt. fell 05/27 - reports he was "trying to move furniture" and was found at bedside lying supine with his legs under the bed. - Minor knee abrasion noted, otherwise no acute injuries. - Head CT was negative for acute hemorrhage; does have acute confusion likely related to hospital delirium - oriented x 3 today with confusion - PT/OT -- recommending inpatient rehab at discharge. - Fall precautions. (3) Dementia: - Memory loss issues at home; has increasing confusion during this admission. - U/a negative; CT head on 05/27 following fall was also negative. - Acute issues likely related to hospital delirium. - Re-orient patient frequently. (4) Central venous catheter in place: - Right femoral; placed on 05/[address] Acosta. - No evidence of acute bleeding noted at this time. (5) Hemorrhage of arteriovenous fistula: - S/p permacath insertion by Dr. Acosta on 05/25. - US of aVF reviewed from 05/24/2019, no active hemorrhage at this time, hgb has been stable - Continue Eliquis 2.5 BID, ASA 81 mg. - keep arm elevated due to edema - discussed case with [facility] - generally these type of hematomas are not drained unless patient is having undue pain as chances of infection and access point scarring increase with intervention. This type of hematoma is usually allowed to drain on it's own. Will continue to evaluate patient's comfort level but at this point he is not having pain and is not having difficulty with range of motion so will not pursue intervention (6) Elevated bilirubin: - T. bili peaked at 1.6 and now trending down. - Alk phos also elevated (chronically elevated at home) - Will continue to monitor LFTs; denies abd pain. Will hold RUQ US imaging. (7) Coronary artery disease: - Continue Metoprolol, Eliquis, statin and ASA as prescribed. (8) Atrial fibrillation: - Continue Eliquis and beta alice as prescribed. (9) Ischemic dilated cardiomyopathy: - Most recent echo showed normal EF, now resolved. (10) Pacemaker: - Followed as outpt, no indication for interrogation. (11) Hypertension: - Continue Metoprolol 200 mg qAM, Bumex 2 mg PO BID as prescribed. (12) Hypercholesterolemia: - Continue statin as prescribed. 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 - SSI coverage; BG >200's, increase Lantus to 8 mg BID for elevated bsgs (14) Diabetic ulcer of toe of right foot associated with type 2 diabetes mellitus: - Consulted wound care. (15) Chronic venous insufficiency: - Continue home meds. - Followed as outpatient. (16) LBBB (left bundle branch block): - Monitored by cardiology. (17) Anemia: - Hgb is currently at baseline, monitor frequently. - Receives iron infusions during HD. (18) Hypothyroid: - Continue levothyroxine 100 mcg daily. - TSH was 1.59. (19) GERD (gastroesophageal reflux disease): - Holding Ranitidine. (20) Obesity (BMI 30-39.9): - BMI 38; encourage weight loss and exercise. (21) Sleep apnea: - Does not wear CPAP. (22) DVT prophylaxis: - Continue home Eliquis. Dispo: Med/surg with tele; discharge to rehab pending placement - family has requested [facility]. Subjective Mr. Holder has no complaints. Per nursing the edema in his left arm is improving though still quite swollen. ROS Constitutional: no chills, aches, sweats or fever Respiratory: no sob,cough, sputum, or wheezing Cardiac: no chest pain, palpitations, edema, orthopnea or lightheadedness GI: no abdominal pain, nausea, vomiting, diarrhea or constipation : no dysuria or hesitancy Extremities: no joint pain or weakness Skin: no rash All other systems reviewed and negative Physical Exam Physical Exam: General: no distress Eyes: normal inspection, PERLL Respiratory: chest non tender, clear to auscultation, normal breath sounds, no respiratory distress, no accessory muscle use Cardiac: regular rate and rhythm, no rub or gallop, no murmur, left arm edematous hand to shoulder GI/: active bowel sounds, no abd pain or tenderness, soft, non distended Extremities: normal range of motion, normal strength, non tender Neuro/Psych: alert and oriented x 3 with some confusion, normal mood and affect Skin: normal color, dry Results & Data Vital Signs (Past 12 Hours) Vital Signs Temp Pulse Pulse Resp BP Pulse Ox 05/29/19 16:23 69 05/29/19 15:29 36.8 C 75 19 122/66 97 05/29/19 11:42 36.7 C 69 17 102/72 98 05/29/19 07:56 37.0 C 73 18 115/65 98 05/29/19 07:54 82 173/50 H PG Care Time/CCT Total # of Minutes Spent Total Time Spent with Patient: Total time spent is greater than 50% in coordina tion of care (as documented) at patient's floor/unit and/or counseling patient: (1) Hemorrhage of arteriovenous fistula Encounter type: initial encounter Qualified Code(s): T82.838A - Hemorrhage due to vascular prosthetic devices, implants and grafts, initial encounter
[2019-05-29] MEDS: ATORVASTATIN 40 MG TAB PO SCH (21:19)
[2019-05-30] MEDS: LEVOTHYROXINE SODIUM 100 MCG TABLET PO SCH (05:43)
[2019-05-30] MEDS ORDERED: EPOETIN ALFA 10,000 UNITS/ML VIAL IV ONE (07:00)
[2019-05-30] MEDS ORDERED: SODIUM CHLORIDE 0.9% 1000ML 1,000 ML IV PRN (07:00)
[2019-05-30 07:34] LABS: Hematocrit (blood only) 27.7 % (42-52); Hemoglobin 9.1 g/dL (14.0-18.0); Mean Corpuscular Hgb Conc 32.9 g/dL (32-36); Mean Corpuscular Volume 103.4 fL (80-100); Mean Platelet Volume 9.8 fL (7.4-10.4); Nucleated RBC # (auto) 0.04 K/uL (0-0); Nucleated RBC % (auto) 0.5 %; Platelet Count 185 K/uL (130-400); RDW Coefficient of Variation 15.8 % (11.5-14.5); RDW Standard Deviation 56.6 fL (36.4-46.3); Red Blood Count 2.68 M/uL (4.7-6.1); White Blood Count 8.58 K/uL (4.8-10.8)
[2019-05-30 08:19] LABS: Albumin Globulin Ratio 0.7 (0.9-2); Albumin Level 2.5 gm/dl (3.4-5.0); BUN Creatinine Ratio 16.6 (10-20); Calcium 8.3 mg/dl (8.5-10.1); Creatinine Clr Calc Pharmacy 12.6 ml/min; Est GFR (African American) 10.9; Est GFR (Non-African American) 9.4; Globulin 3.5 gm/dl (2.5-4.0)
[2019-05-30] MEDS: APIXABAN 2.5 MG TAB PO SCH (08:32)
[2019-05-30] MEDS: METOPROLOL SUCC 50MG EXT REL TAB PO SCH (08:32)
[2019-05-30] MEDS: CALCIUM 600MG + VIT D 400 IU TAB PO SCH (08:32)
[2019-05-30] MEDS: BUMETANIDE 1 MG TAB PO SCH (08:32)
[2019-05-30] MEDS: ASPIRIN 81 MG ECTAB PO SCH (08:32)
[2019-05-30] MEDS: DOCUSATE SODIUM 100 MG CAP PO SCH (08:32)
[2019-05-30] MEDS: GABAPENTIN 600 MG TAB PO SCH (08:32)
[2019-05-30] MEDS: MULTIVITAMIN TAB PO SCH (08:32)
[2019-05-30] MEDS: ASCORBIC ACID 500 MG TAB PO SCH (08:32)
[2019-05-30] MEDS: CHOLECALCIFEROL 1,000 UNITS TAB PO SCH (08:32)
[2019-05-30] MEDS: INSULIN GLARGINE SOLOSTAR 100 UNITS/ML 3 ML PEN SC SCH (08:33)
[2019-05-30] MEDS: INSULIN ASPART 100 UNITS/ML 3 ML PEN SC SCH ×2 (08:33→14:21)
--- NOTE | 2019-05-30 11:01 | Nephrology Progress Note ---
Date of Service May 30, 2019 Assessment & Plan (1) ESRD (end stage renal disease) on dialysis: End-stage renal disease on hemodialysis TTS schedule as an outpatient. Currently has a tunneled catheter for dialysis while left upper extremity is resting from recent infiltration and significant swelling. He has a baseline and dimension confusion which lately seems to be worsening and he will possibly need placement to a long-term care facility. Waiting for snf placement to [facility] -- Volume status and electrolyte balance acceptable at this time. Orders for HD today placed in EMR and HD RN notified -- Plan to rest AVF and use femoral tunneled catheter for access x 2weeks (2) Central venous catheter in place: -- R femoral THC in place (3) Hemorrhage of arteriovenous fistula: -- Patient is on chronic anticoagulation due to atrial fibrillation (4) Anemia: -- Will provide DERRICK w/ HD (5) Ischemic dilated cardiomyopathy: (6) Hypertension: (7) Diabetes mellitus type 2, insulin dependent: Subjective Mr. Holder was seen & examined in his hospital room this morning. He is alert and oriented to self and place only. He voices no new medical concerns. Review of Systems Constitutional: + weakness; no fever Eyes: no worsening vision and no problem reported Ear, Nose, Mouth, Throat: no problem reported Respiratory: no cough and no dyspnea Cardiovascular: no chest pain, no palpitations and no edema Gastrointestinal: no abdominal pain, no nausea, no vomiting and no diarrhea/loose stools Genitourinary: no dysuria, no urinary hesitancy and no hematuria Musculoskeletal: no back pain Integumentary: no rash Neurologic: + confusion Physical Exam Constitutional: + frail appearing Eyes: PERRL, conjunctivae normal, anicteric sclerae ENMT: external ear and nose normal, oropharynx normal Neck: trachea midline, no thyromegaly Respiratory: normal respiratory effort, lungs clear to auscultation Cardiovascular: Rate/Rhythm: regular rate and regular rhythm Extremities: + edema (L arm w/ large hematoma surrounding AVF. Fistula has + bruit) Gastrointestinal (Abdomen): normal bowel sounds, soft, nontender, no hepatosplenomegaly Skin: no rashes, warm and dry Neurologic: awake and + confused Results & Data Vital Signs (Past 12 Hours) Vital Signs Temp Pulse Pulse Pulse Resp BP BP 05/30/19 10:40 61 114/52 L 05/30/19 10:20 65 118/54 L 05/30/19 10:00 63 117/53 L 05/30/19 09:40 64 118/52 L 05/30/19 09:26 36.5 C 61 61 120/56 L 05/30/19 07:15 36.8 C 75 16 99/59 L 05/30/19 03:06 36.2 C L 67 18 122/83 Pulse Ox 05/30/19 10:40 05/30/19 10:20 05/30/19 10:00 05/30/19 09:40 05/30/19 09:26 05/30/19 07:15 94 05/30/19 03:06 98 Laboratory Results Laboratory Tests 05/30/19 05/30/19 07:05 07:05 WBC 8.58 Hgb 9.1 L Hct 27.7 L Plt Count 185 Sodium 132 L Potassium 4.0 Chloride 98 Carbon Dioxide 22 BUN 89 H Creatinine 5.22 H* D Glucose 167 H PG Care Time/CCT Total # of Minutes Spent Total Time Spent with Patient: Total time spent is greater than 50% in coordination of care (as documented) at patient's floor/unit and/or counseling patient: (1) Hemorrhage of arteriovenous fistula Encounter type: initial encounter Qualified Code(s): T82.838A - Hemorrhage due to vascular prosthetic devices, implants and grafts, initial encounter
--- NOTE | 2019-05-30 13:20 | Discharge Summary ---
Date of Service May 30, 2019 Admission HPI Per Admitting Provider This is a 84 yo M with PMHx of CAD, afib on eliquis, HTN, HLD, CKD stage V on hemodialysis (//WED), chronic anemia, Alzheimer's dementia, osteoarthritis, GERD, hypothyroidism, peripheral neuropathy. The patient was evaluated and underwent permacath placement today, by Dr. Acosta on 05/25/2019 as patient had previously had aVF hematoma formed due to puncture during dialysis. Patient has left upper extremity fistula, significant arm swelling and ecchymosis. His notes that he took about 1 hour to get into the car early this morning before his permacath placement. He denies any pain currently. Patient has difficulty providing specific regarding his health due to dementia and is intermittently joking during our conversation. His , daughter and [id number] are present at bedside, they are requesting referral be made to [facility] if rehab is required. Principal Diagnosis AV fistual hemorrhage Discharge Exam Constitutional WD/WN, vitals as above Respiratory normal respiratory effort, lungs clear to auscultation Cardiovascular Rate/Rhythm: regular rate and regular rhythm Heart Sounds: normal S1 and normal S2 left arm edema Gastrointestinal (Abdomen) Inspection/Auscultation: abdomen normal to inspection and normal bowel sounds; abdomen not distended Percussion/Palpation: abdomen soft; abdomen nontender Musculoskeletal no cyanosis or clubbing, extremities motor strength 5/5 left fingers able to go through rom, no pain Skin no rashes, warm and dry Neurologic moves all extremities and awake Psychiatric Orientation: alert and oriented to person Discharge Data Allergies Allergy/AdvReac Type Severity Reaction Status Date / Time clindamycin AdvReac Mild Nausea Verified 05/25/19 12:53 Consultations 05/25/19 16:16 Consult Hospitalist Routine 05/25/19 17:49 Consult Nephrology Routine 05/25/19 19:35 Consult Case Management - Discharge Planning Routine Procedures Performed Operation Date: 05/25/19 13:50 Actual Procedures p Insertion of Perm Catheter, Right Internal Jugular Approach, Ultrasound Localization of Right Internal Jugular Vein, Fluoroscopy for Positioning; Moderate Sedation From 1553 to 1626.(Right) - Rex Acosta MD Ordered Studies 05/25/19 12:50 EV cvc insrt tunnel wo prt/volunteer services manager Routine 05/27/19 17:49 CT head/brain wo con Urgent Hospital Course (1) Chronic kidney disease, stage IV (severe): - Stage IV CKD requiring hemodialysis (ESRD) - HD on //Sat at home; most recent treatment on Wednesday, continue current schedule. - S/p permacath placement on 05/[address] Acosta. Will need to rest fistula for ~2 weeks.. - Nephro consulted, appreciate input. - Monitor renal function daily. - Continue home Bumex 2 mg PO BID - monitor volume status, hypotension episodes have improved (2) Fall: - Pt. fell 05/27 - reports he was "trying to move furniture" and was found at bedside lying supine with his legs under the bed. - Minor knee abrasion noted, otherwise no acute injuries. - Head CT was negative for acute hemorrhage; does have acute confusion likely related to hospital delirium - PT/OT - Fall precautions. (3) Dementia: - Memory loss issues at home; has increasing confusion during this admission. - U/a negative; CT head on 05/27 following fall was also negative. - Acute issues likely related to hospital delirium. - Re-orient patient frequently. (4) Central venous catheter in place: - Right femoral; placed on 05/[address] Acosta. - No evidence of acute bleeding noted at this time. (5) Hemorrhage of arteriovenous fistula: - S/p permacath insertion by Dr. Acosta on 05/25. - US of aVF reviewed from 05/24/2019, no active hemorrhage at this time, hgb has been stable - Continue Eliquis 2.5 BID, ASA 81 mg. - keep arm elevated due to edema - discussed case with [facility] - generally these type of hematomas are not drained unless patient is having undue pain as chances of infection and access point scarring increase with intervention. This type of hematoma is usually allowed to drain on it's own. Will continue to evaluate patient's comfort level but at this point he is not having pain and is not having difficulty with range of motion so will not pursue intervention (6) Elevated bilirubin: - T. bili peaked at 1.6 and now resolved - Alk phos also elevated (chronically elevated at home) (7) Coronary artery disease: - Continue Metoprolol, Eliquis, statin and ASA as prescribed. (8) Atrial fibrillation: - Continue Eliquis and beta alice as prescribed. (9) Ischemic dilated cardiomyopathy: - Most recent echo showed normal EF, now resolved. (10) Pacemaker: - Followed as outpt, no indication for interrogation. (11) Hypertension: - Continue Metoprolol 200 mg qAM, Bumex 2 mg PO BID as prescribed. (12) Hypercholesterolemia: - Continue statin as prescribed. 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 - SSI coverage; BG >200's, increase Lantus to 8 mg BID for elevated bsgs - will resume home dosing at discharge but may need further titrating outpatient (14) Diabetic ulcer of toe of right foot associated with type 2 diabetes mellitus: - Consulted wound care. (15) Chronic venous insufficiency: - Continue home meds. - Followed as outpatient. (16) LBBB (left bundle branch block): - Monitored by cardiology. (17) Anemia: - Hgb is currently at baseline, monitor frequently. - Receives iron infusions during HD. (18) Hypothyroid: - Continue levothyroxine 100 mcg daily. - TSH was 1.59. (19) GERD (gastroesophageal reflux disease): - Holding Ranitidine. (20) Obesity (BMI 30-39.9): - BMI 38; encourage weight loss and exercise. (21) Sleep apnea: - Does not wear CPAP. (22) DVT prophylaxis: - Continue home Eliquis. Dispo: Med/surg with tele; discharge to rehab pending placement - family has requested [facility] [employer]. Total Time Total Time Spent Total Time Spent (In Minutes): greater than 30 minutes Discharge Plan Discharge Items Patient Disposition: Transfer [facility] Reason For Visit: AVF HEMATOMA,S/P PERMACATH PLACEMENT Discharge Diagnosis: AVF hematoma, s/p perm cath placement Activity: Resume your previous activity Non-emergency contact: Primary Care Provider Call non-emergency contact if: you have any medication questions Follow-up/Referrals: Lexii Aguilar MD [Primary Care Provider] - Diet: Carb Consistent or DM2 Addtl Attending Provider Instructions: (1) Chronic kidney disease, stage IV (severe): - Stage IV CKD requiring hemodialysis (ESRD) - hemodialysis on //Sat at home; most recent treatment on today 05/30 - S/p permacath placement on 05/[address] Acosta. Will need to rest fistula for about 2 weeks.. - Continue home Bumex 2 mg PO BID (2) Fall: - Pt. fell 05/27 inpatient - Minor knee abrasion noted, otherwise no acute injuries. - Head CT was negative for acute hemorrhage - PT/OT - Fall precautions. (3) Cognitive Decline - Memory loss issues at home; has had increasing confusion during this admission. - Urinalysis negative; CT head on 05/27 following fall was also negative. - Acute issues likely related to hospital delirium. - Re-orient patient frequently. (4) Hemorrhage of arteriovenous fistula: - An ultrasound of the arterovenous fisutal was reviewed on 05/24 with no active hemorrhage,hemoglobin has been stable - Continue Eliquis 2.5 BID, ASA 81 mg. - keep arm elevated due to edema (5) Elevated bilirubin: - T. bili peaked at 1.6 and trended back to within normal limits - Alk phos also elevated (chronically elevated at home) (6) Coronary artery disease, atrial fibrillation, ischemic dilated cardiomyopathy, pacemaker, hypertension, hypercholesterolemia: - Continue Metoprolol, Eliquis, statin, Bumex, and aspirin as prescribed. (7) Diabetes mellitus type 2, insulin dependent: - A1C 8.3 in Mar 2019. - continue home regimen (8) Diabetic ulcer of toe of right foot associated with type 2 diabetes mellitus: - Consulted wound care - cleanse daily and cover with optifoam (9) Anemia: - Hgb is currently at baseline - Receives iron infusions during HD. (10) Hypothyroid: - Continue levothyroxine 100 mcg daily. - TSH was 1.59. Pending Studies at Discharge: No Stand-Alone Forms: [facility] Skilled Items Patient informed of condition?: Yes DNR: No Discharge Level of Care: Skilled Communicable Disease: No Discharge Prognosis: Stable Lines: None Urinary Catheter: No Medications and DC Order Prescriptions: Continued aspirin [Adult Aspirin Regimen] 81 mg tablet,delayed release (DR/EC) 81 mg PO QAM RF: 0 docusate sodium [Colace] 100 mg capsule 100 mg PO BIDM RF: 0 metoprolol succinate [Toprol XL] 200 mg tablet extended release 24 hr 200 mg PO QAM RF: 0 multivitamin,[id number] [Complete Multivitamin] tablet 1 tab PO QAM RF: 0 polyethylene glycol 3350 [Miralax] 17 gram/dose powder 17 gm PO DAILY PRN (Reason: Constipation) RF: 0 bumetanide 1 mg tablet 2 mg PO BID Qty: 360 RF: 3 Eliquis 2.5 mg tablet 2.5 mg PO BIDM Qty: 180 RF: 3 nitroglycerin 0.4 mg tablet, sublingual 0.4 mg SL UD PRN (Reason: Chest Pain) Qty: 25 RF: 0 cholecalciferol (vitamin D3) 1,000 unit tablet 1,000 units PO QAM RF: 0 gabapentin 300 mg capsule 600 mg PO BID RF: 0 ranitidine HCl 150 mg tablet 150 mg PO QAM RF: 0 atorvastatin [Lipitor] 80 mg tablet 80 mg PO QPM RF: 0 levothyroxine 100 mcg tablet 100 mcg PO QAM RF: 0 ascorbic acid (vitamin C) [Vitamin C] 1,000 mg Tablet 1,000 mg PO QAM RF: 0 acetaminophen [Tylenol Extra Strength] 500 mg Tablet 1,000 mg PO TID PRN (Reason: Pain) RF: 0 Calcium 600 + D(3) 600 mg calcium- 200 unit Capsule 1 tab PO QAM RF: 0 GenTeal Tears Mild 0.1-0.3 % Drops 1 drp ophthalmic (eye) DAILY PRN (Reason: Dry Eye(S)) RF: 0 Novolin 70/30 U-100 Insulin 100 unit/mL (70-30) suspension 50 units SUBCUT BID RF: 0 Discharge Orders: Discharge Order (Routine); Ordered 05/30/19 Ordered By: Eliana Prado Admission Data Admit Date/Time: 05/25/19 17:41 Attending Provider: Floyd Salgado Admit Provider: Anika Garcia Primary Care Provider: Lexii Aguilar Other Providers: Macario Padilla ; Ava Birch ; Margo Gupta ; Yousuf Yuen ; Lv Block ; Danita García Thomas E. ; Victorino Lynn ; Bill Das ; Adali Arrington ; Keke Velazquez ; Lissy Peace ; Karsten Sanchez ; Anika Garcia ; Floyd Salgado ; Rios Flores ; Ava Orellana ; Francesco Erickson ; Eliana Prado ; Suman Pisano ; Juno Alatorre ; Yousuf Davies ; Nu Mcdonald ; Peace Rebolledo ; Dano Haley ; Brian Walter ; Ajay Payan ; Donald Pastor ; Sid Ansari ; Johan Bah ; Cari Brewer at [place] ; [place] Other Interventions: Discharge Summary Assessment (RN) Last Done: 05/30/19 14:08 DC Date/Time DO NOT enter until pt leaves facility: 05/30/19 17:20 Supervising Physician Co-Signing Physician Notes I supervised Eliana Prado NP on this patient's care. I examined the patient today independently of her. I discussed the plan of care with her with the plan being as written in her note except for any following changes/exceptions: None. No pain in the left arm, though still swollen. Overall, doing well.
== END 2019-05-30 17:20 | DRG 314 ==
LOC: ASU 12:31 → SUATTDRO 17:41 → 2N 17:41

== ENCOUNTER 2019-09-21 21:02 | Inpatient (IN) ==
[2019-09-21 21:32] LABS: Basophils # (auto) 0.02 K/uL (0-0.2); Basophils % (auto) 0.3 %; Eosinophils # (auto) 0.12 K/uL (0-0.5); Eosinophils % (auto) 1.9 %; Hematocrit (blood only) 32.7 % (42-52); Immature Granulocytes # (auto) 0.11 K/uL (0.00-0.02); Immature Granulocytes % (auto) 1.7 %; Lymphocytes # (auto) 0.82 K/uL (1.2-3.4); Mean Corpuscular Hemoglobin 32.5 pg (25-34); Mean Corpuscular Hgb Conc 30.6 g/dL (32-36); Mean Corpuscular Volume 106.2 fL (80-100); Mean Platelet Volume 10.1 fL (7.4-10.4); Monocytes # (auto) 0.66 K/uL (0.11-0.59); Monocytes % (auto) 10.5 %; Neutrophils # (auto) 4.57 K/uL (1.4-6.5); Neutrophils % (auto) 72.6 %; Nucleated RBC # (auto) 0.03 K/uL (0-0); Nucleated RBC % (auto) 0.5 %; Platelet Count 145 K/uL (130-400); RDW Standard Deviation 67.2 fL (36.4-46.3); Red Blood Count 3.08 M/uL (4.7-6.1)
--- NOTE | 2019-09-21 21:33 | XRay Report ---
XR chest 1V portable CLINICAL HISTORY: ams dyspnea COMPARISON STUDY: 2018 FINDINGS: Catheters and bipolar cardiac pacemaker unchanged. Lungs are considered clear. Diaphragms a re smooth. IMPRESSION: No acute process. ACT 112: Negative or not required by law. The above report was generated using voice recognition software. It may contain grammatical, syntax or spelling errors. Electronically signed by: Raymond Romero M.D. 09/21/2019 9:31 PM
--- NOTE | 2019-09-21 21:34 | XRay Report ---
XR pelvis 1-2V routine CLINICAL HISTORY: fall trauma. Pain. COMPARISON: 08/08/2015 DISCUSSION: Generalized degenerative change. Right femoral catheter is in position. No well-defined acute bony abnormality. There is no evidence for soft tissue swelling. IMPRESSION: Degenerative and postoperative change. No acute process. ACT 112: Negative or not required by law. The above report was generated using voice recognition software. It may contain grammatical, syntax or spelling errors. Electronically signed by: Raymond Romero M.D. 09/21/2019 9:32 PM
--- NOTE | 2019-09-21 21:42 | CT Scan Report ---
CT head/brain wo con CT DOSE: 537.48 mGy.cm HISTORY: Mental status change ams TECHNIQUE: Multiaxial CT images of the head were performed without the use of intravenous contrast. A dose lowering technique was utilized adhering to the principles of ALARA. Comparison: 05/27/2019 Findings: The paranasal sinuses and mastoid air cells are clear. The calvarium and skull base are int act. The ventricles and sulci are within normal limits. There is no mass, hematoma, midline shift, or acute infarct. There is a stable 1.3 cm calcified left frontal meningioma. Impression: No acute intracranial abnormality. ACT 112: Negative or not required by law. The above report was generated using voice recognition software. It may contain grammatical, syntax or spelling errors. Electronically signed by: Raymond Romero M.D. 09/21/2019 9:41 PM
[2019-09-21 21:43] LABS: INR 1.3 (0.9-1.1); Partial Thromboplastin Ratio 1.4; Partial Thromboplastin Time 40.4 Seconds (21.0-31.0); Prothrombin Time 13.3 Seconds (9.0-12.0)
[2019-09-21 21:49] LABS: Alanine Aminotransferase 27 U/L (12-78); Albumin Level 2.6 gm/dl (3.4-5.0); Aspartate Aminotransferase 31 U/L (15-37); BUN Creatinine Ratio 9.4 (10-20); Bilirubin Direct < 0.1 mg/dl (0-0.2); Blood Urea Nitrogen 36 mg/dl (7-18); Calcium 8.2 mg/dl (8.5-10.1); Carbon Dioxide 31 mmol/L (21-32); Chloride 100 mmol/L (98-107); Est GFR (African American) 15.8; Est GFR (Non-African American) 13.7; Glucose 299 mg/dl (70-99); Lipase 274 U/L (73-393); Magnesium 2.3 mg/dl (1.8-2.4); Potassium 5.4 mmol/L (3.5-5.1); Sodium 136 mmol/L (136-145)
[2019-09-21 21:54] LABS: Alkaline Phosphatase 149 U/L (45-117); Bilirubin,Total 0.4 mg/dl (0.2-1); NT Pro B Type Natriuretic Pept 7110 pg/ml (0-1800); Total Protein 6.5 gm/dl (6.4-8.2); Troponin I < 0.015 ng/ml (0-0.045)
[2019-09-21] MEDS ORDERED: SODIUM CHLORIDE 0.9% 1000ML 250 ML IV ONE (22:31)
[2019-09-21] MEDS ORDERED: SODIUM CHLORIDE 0.9% 1000ML 500 ML IV ONE (22:32)
[2019-09-21 22:44] LABS: Appearance Urine Clear (Clear); Bacteria Urine Automated Negative (Negative); Bilirubin Urine Negative (Negative); Blood Urine 2+ (Negative); Color Urine Dark Yellow; Epithelial Cell Urine Auto 0-5 /lpf (0-5); Glucose Urine UA Negative (Negative); Ketones Urine Trace (Negative); Leukocyte Esterase Urine Trace (Negative); Nitrite Urine Negative (Negative); Protein Urine Trace (Negative); RBC Urine Automated 0-4 /hpf (0-4); Specific Gravity Urine 1.019 (1.000-1.030); Urobilinogen Urine Negative (Negative)
[2019-09-21 22:51] LABS: Influenza A virus by PCR Neg for Influ A (Neg); Influenza B virus by PCR Neg for Influ B (Neg)
[2019-09-21 22:54] LABS: Base Excess VBG 2.6 mEq/L; HCO3 VBG 30 mmol/L; PCO2 VBG 63 mmHg (38-50); PO2 VBG 21 mmHg
[2019-09-21 22:57] LABS: Oxygen Saturation VBG < 60.0 %
[2019-09-21] MEDS ORDERED: VANCOMYCIN HCL 2,250 MG in SODIUM CHLORIDE 0.9% 500 ML IV ONE (23:20)
[2019-09-21] MEDS ORDERED: VANCOMYCIN CONSULT ACTIVE PRN (23:20)
[2019-09-21] MEDS ORDERED: CEFEPIME 2,000 MG/20 ML VIAL IV STA (23:20)
--- NOTE | 2019-09-22 00:06 | Emergency Department Note ---
History of Present Illness General Chief complaint: Altered Mental Status Time Seen by Provider: 09/21/19 21:05 History of Present Illness Provider complaint: Altered mental status Onset (ago): hour(s) 7 84-year-old Wednesday hemodialysis patient from half-way presents to the emergency department for altered mental status. Per EMS the half-way staff stated the patient's altered mental status began at about 2 PM after dialysis. They state he is normally alert and oriented and talking. Patient is currently confused and arousable to noxious stimuli. Patient is a full code. Home Medications Home Medications Medication Instructions Recorded Confirmed Type acetaminophen [Tylenol Extra 1,000 mg PO Q8 PRN 09/21/19 09/21/19 History Strength] acetaminophen [Tylenol] 650 mg PO Q4 PRN 09/21/19 09/21/19 History amino ac-protein hydr-whey pro 1 ea PO BID 09/21/19 09/21/19 History [ProSource] apixaban [Eliquis] 2.5 mg PO BID 09/21/19 09/21/19 History ascorbic acid (vitamin C) [Vitamin 1,000 mg PO QAM 09/21/19 09/21/19 History C] aspirin [Aspir-81] 81 mg PO DAILY 09/21/19 09/21/19 History atorvastatin [Lipitor] 80 mg PO HS 09/21/19 09/21/19 History bumetanide 2 mg PO BID 09/21/19 09/21/19 History calcium carbonate-vitamin D3 1 cap PO DAILY 09/21/19 09/21/19 History [Calcium 600 + D(3)] cephalexin 500 mg PO DAILY 09/21/19 09/21/19 History cholecalciferol (vitamin D3) 25 mcg PO DAILY 09/21/19 09/21/19 History [Vitamin D3] dextran 70-hypromellose [GenTeal 1 drp OPHTHALMIC (EYE) DAILY 09/21/19 09/21/19 History Tears Mild] docusate sodium [Colace] 100 mg PO BID 09/21/19 09/21/19 History escitalopram oxalate [Lexapro] 7.5 mg PO QAM 09/21/19 09/21/19 History famotidine 10 mg PO 3XWK 09/21/19 09/21/19 History gabapentin [Neurontin] 600 mg PO BID 09/21/19 09/21/19 History insulin aspart U-100 [Novolog 5 unit SUBCUT TIDM 09/21/19 09/21/19 History U-100 Insulin aspart] insulin glargine [Basaglar KwikPen 25 unit SUBCUT Q12 09/21/19 09/21/19 History U-100 Insulin] ipratropium-albuterol 3 ml INHALATION Q6 PRN 09/21/19 09/21/19 History levofloxacin [Levaquin] 500 mg PO Q OTHER DAY 09/21/19 09/21/19 History levothyroxine 100 mcg PO DAILY 09/21/19 09/21/19 History metoprolol succinate [Toprol XL] 100 mg PO BID 09/21/19 09/21/19 History multivitamin 1 tab PO DAILY 09/21/19 09/21/19 History nitroglycerin [Nitrostat] 0.4 mg SUBLINGUAL UD PRN 09/21/19 09/21/19 History oxymetazoline [Afrin Sinus 2 spray INTRANASAL Q8 PRN 09/21/19 09/21/19 History (oxymetazoline)] polyethylene glycol 3350 [Miralax] 17 g PO DAILY PRN 09/21/19 09/21/19 History Allergies Allergy/AdvReac Type Severity Reaction Status Date / Time clindamycin AdvReac Mild Nausea Verified 09/21/19 22:06 Past Med/Surg History Medical History Actinic keratitis ARMS - SCALY; LEGS DEVELOPED OPEN WOUNDS STILL HAS SOME OPEN AREAS ON LEGS Age-related cognitive decline Alzheimer's dementia Broken shoulder (Acute) left shoulder feb 2019 Chronic kidney disease, stage IV (severe) [facility] Compression fracture of lumbar vertebra Coronary artery disease S/P CABG X 4 (~2002) Dementia Diabetes IDDM DJD (degenerative joint disease) GERD (gastroesophageal reflux disease) CONTROLLED H/O prostate cancer brachytherapy treatment. Hemodialysis patient FISTULA LEFT ARM. [facility] Wednesday[facility] History of brachytherapy History of kidney stones History of left bundle branch block (LBBB) HTN (hypertension) Hypercholesteremia Hypothyroid Ischemic cardiomyopathy s/p insertion of pacer/icd 2013. Stable. EF 55-60% 09/2017 echo. Obesity Permanent atrial fibrillation Asymptomatic per cardio 10/24/18. Rate controlled on BB, anticoagulated with Eliquis. Secondary hyperparathyroidism Sleep apnea NO LONGER USES CPAP Spinal stenosis Venous stasis Surgical History H/O four vessel coronary artery bypass graft CABG X 4 (~2002) H/O total knee replacement RIGHT History of cardioversion unsuccessful History of colonoscopy History of surgical removal of pilonidal cyst Hx of hemorrhoidectomy Presence of implantable cardioverter-defibrillator (ICD) PPM/ICD IMPLANTED 2013; [employer] LAST PACER CHECK S/P arteriovenous (AV) fistula creation left arm. Needs to start dialysis, but fistula swollen and unusable currently. Family History Sister Kidney stones Son Kidney stones Mother Diabetes Hypertension Heart disease Aunt Colon cancer Denies family history of Ovarian cancer Prostate cancer Myocardial infarction Breast cancer Social History Preferred Language: Tamazight Communication Ability: Effective Visual Impairment: Limited Hearing Ability: Normal Manager Compensation Required: No Beliefs That Will Affect Care: None marital status: Current Living Situation: [facility] current occupational status: retired Feels Safe at Home: Yes Smoking Status: Former smoker Tobacco Type: cigarettes ; Second Hand Exposure: No ; Hx Alcohol Use: No Hx Substance Use: No Review of Systems Unobtainable due to cognitive status Physical Exam Vital Signs Vital Signs - 24 hr 09/21/19 21:06 09/21/19 21:16 09/21/19 21:22 Temperature 36.3 C L Temperature Source Rectal Pulse Rate 72 76 71 Pulse Rate [Right Finger] Pulse Rate from SpO2 Sensor 71 69 Pulse Rhythm Regular Pulse Rhythm [Right Finger] Pulse Strength Normal Pulse Strength [Right Finger] Respiratory Rate 17 17 15 Respiratory Effort / Characteristics Non-Labored SOB on Exertion Respiratory Depth Normal Blood Pressure 93/47 L 96/72 L 81/39 L Blood Pressure [Right Arm] Blood Pressure Mean 62 77 48 Blood Pressure Mean [Right Arm] Blood Pressure Position Lying Blood Pressure Position [Right Arm] Pulse Oximetry 97 90 99 Oxygen Delivery Method Room Air Room Air Room Air Sepsis Recent Fever Within 48 Hours No Sepsis Action Taken by Nursing No Action Required 09/21/19 21:40 09/21/19 21:45 09/21/19 22:03 Temperature Temperature Source Pulse Rate 107 H 69 60 Pulse Rate [Right Finger] Pulse Rate from SpO2 Sensor 77 65 60 Pulse Rhythm Pulse Rhythm [Right Finger] Pulse Strength Pulse Strength [Right Finger] Respiratory Rate 21 15 16 Respiratory Effort / Characteristics Respiratory Depth Blood Pressure 79/52 L 92/50 L 101/63 Blood Pressure [Right Arm] Blood Pressure Mean 57 59 80 Blood Pressure Mean [Right Arm] Blood Pressure Position Blood Pressure Position [Right Arm] Pulse Oximetry 94 100 100 Oxygen Delivery Method Room Air Room Air Room Air Sepsis Recent Fever Within 48 Hours Sepsis Action Taken by Nursing 09/21/19 22:15 09/21/19 22:26 09/21/19 22:30 Temperature Temperature Source Pulse Rate 67 70 63 Pulse Rate [Right Finger] Pulse Rate from SpO2 Sensor 67 70 68 Pulse Rhythm Pulse Rhythm [Right Finger] Pulse Strength Pulse Strength [Right Finger] Respiratory Rate 24 21 21 Respiratory Effort / Characteristics Respiratory Depth Blood Pressure 106/64 104/52 L Blood Pressure [Right Arm] Blood Pressure Mean 72 61 Blood Pressure Mean [Right Arm] Blood Pressure Position Blood Pressure Position [Right Arm] Pulse Oximetry 98 97 91 Oxygen Delivery Method Sepsis Recent Fever Within 48 Hours Sepsis Action Taken by Nursing 09/21/19 23:15 Temperature Temperature Source Pulse Rate Pulse Rate [Right Finger] 60 Pulse Rate from SpO2 Sensor Pulse Rhythm Pulse Rhythm [Right Finger] Regular Pulse Strength Pulse Strength [Right Finger] Normal Respiratory Rate 18 Respiratory Effort / Characteristics Respiratory Depth Normal Blood Pressure Blood Pressure [Right Arm] 104/47 L Blood Pressure Mean Blood Pressure Mean [Right Arm] 66 Blood Pressure Position Blood Pressure Position [Right Arm] Lying Pulse Oximetry 98 Oxygen Delivery Method Room Air Sepsis Recent Fever Within 48 Hours Sepsis Action Taken by Nursing Physical Exam EYES: Conjunctivae and EOM are normal. Pupils are equal, round, and reactive to light. Right eye exhibits no discharge. Left eye exhibits no discharge. No scleral icterus. NECK: Neck supple. CV: Normal rate, regular rhythm, normal heart sounds and intact distal pulses. There is no peripheral edema. Palpable radial pulses bue. PULM/CHEST: Rhonchi bilaterally. ABD: The abdomen is soft. Extremities: Left upper extremity AV fistula with palpable thrill. NEURO: GCS eye subscore is 3. GCS verbal subscore is 4. GCS motor subscore is 5. SKIN: Multiple healing wounds of the bilateral lower extremities. Permacath in the right groin PSYCH: He has a normal mood and affect. Behavior is normal. Judgment and thought content normal. Course Course 2100: The patient was evaluated in room A1. A complete history and physical exam was performed. 0: Patient hypotensive. Will give judicious small fluid boluses given the patient is a dialysis patient. 2300: Vital signs improved status post fluid boluses. Labs show mild lactic acidemia of 2.3. Patient will be treated for presumed empiric line sepsis which would explain the patient's altered mental status and hypotension. Broad- spectrum antibiotics given in the emergency department. Patient will be admitted to the [facility] system Dr. Parker notified. Administered Medications Vancomycin HCl 2,250 mg/ (Sodium Chloride) 545 mls @ 200 mls/hr IV NOW ONE Stop: 09/22/19 02:03 Last Admin: 09/21/19 23:37 Dose: 200 mls/hr Documented by: [id number] Discontinued Medications Sodium Chloride (Nss 1000ml) 250 mls @ 999 mls/hr IV .Q16M ONE Stop: 09/21/19 22:46 Last Infusion: 09/21/19 21:31 Dose: 0 mls/hr Documented by: [id number] Admin: 09/21/19 21:15 Dose: 999 mls/hr Documented by: [id number] Sodium Chloride (Nss 1000ml) 500 mls @ 999 mls/hr IV .Q31M ONE Stop: 09/21/19 23:02 Last Infusion: 09/21/19 22:35 Dose: 0 mls/hr Documented by: [id number] Admin: 09/21/19 21:45 Dose: 999 mls/hr Documented by: [id number] Cefepime HCl (Maxipime) 2,000 mg in 20 mls @ 5 mls/min IV NOW STA; Protocol Stop: 09/21/19 23:23 Last Admin: 09/21/19 23:26 Dose: 5 mls/min Documented by: [id number] Critical Care Time Critical Care Time: Yes Total Critical Care Time: 61 I have personally spent greater than 61 minutes of critical care time in the direct management of this patient. This includes bedside care, interpretation of diagnostic studies, and testing, discussion with consultants, patient, and family members, and other required patient management activities. This 61 minutes is in excess of all separately billable procedures. Medical Decision Making Laboratory Data Result diagrams: 09/21/19 20:50 09/21/19 20:50 Lab Results 09/21/19 09/21/19 09/21/19 Range/Units 20:50 20:50 20:50 WBC 6.30 (4.8-10.8) K/uL RBC 3.08 L (4.7-6.1) M/uL Hgb 10.0 L (14.0-18.0) g/dL Hct 32.7 L (42-52) % MCV 106.2 H (80-100) fL MCH 32.5 (25-34) pg MCHC 30.6 L (32-36) g/dL RDW Std Deviation 67.2 H (36.4-46.3) fL RDW Coeff of Virginie 18.0 H (11.5-14.5) % Plt Count 145 (130-400) K/uL MPV 10.1 (7.4-10.4) fL Immature Gran % (Auto) 1.7 % Neut % (Auto) 72.6 % Lymph % (Auto) 13.0 % Brule % (Auto) 10.5 % Eos % (Auto) 1.9 % Baso % (Auto) 0.3 % Immature Gran # (Auto) 0.11 H (0.00-0.02) K/uL Neut # (Auto) 4.57 (1.4-6.5) K/uL Lymph # (Auto) 0.82 L (1.2-3.4) K/uL Brule # (Auto) 0.66 H (0.11-0.59) K/uL Eos # (Auto) 0.12 (0-0.5) K/uL Baso # (Auto) 0.02 (0-0.2) K/uL Absolute Nucleated RBC 0.03 H (0-0) K/uL Nucleated RBC % (auto) 0.5 % PT 13.3 H (9.0-12.0) Seconds INR 1.3 H (0.9-1.1) APTT 40.4 H (21.0-31.0) Seconds PTT Ratio 1.4 VBG pH (7.36-7.41) VBG pCO2 (38-50) mmHg VBG pO2 mmHg VBG HCO3 mmol/L VBG O2 Saturation % VBG Base Excess mEq/L Barometric Pressure mm/Hg Sodium 136 (136-145) mmol/L Potassium 5.4 H (3.5-5.1) mmol/L Chloride 100 (98-107) mmol/L Carbon Dioxide 31 (21-32) mmol/L Anion Gap 5.0 (3-11) BUN 36 H (7-18) mg/dl Creatinine 3.83 H (0.6-1.4) mg/dl Est Cr Clr Drug Dosing Not Reportable Est GFR ( Amer) 15.8 Est GFR (Non-Af Amer) 13.7 BUN/Creatinine Ratio 9.4 L (10-20) Glucose 299 H (70-99) mg/dl POC Glucose (70-99) mg/dl Lactate (0.4-2.0) mmol/L Calcium 8.2 L (8.5-10.1) mg/dl Magnesium 2.3 (1.8-2.4) mg/dl Total Bilirubin 0.4 (0.2-1) mg/dl Direct Bilirubin < 0.1 (0-0.2) mg/dl AST 31 (15-37) U/L ALT 27 (12-78) U/L Alkaline Phosphatase 149 H (45-117) U/L Ammonia (11-32) umol/L Troponin I < 0.015 (0-0.045) ng/ml NT-Pro-B Natriuret Pep 7110 H (0-1800) pg/ml Total Protein 6.5 (6.4-8.2) gm/dl Albumin 2.6 L (3.4-5.0) gm/dl Lipase 274 (73-393) U/L Urine Color Urine Appearance (Clear) Urine pH (4.5-7.5) Ur Specific [place] (1.000-1.030) Urine Protein (Negative) Urine Glucose (UA) (Negative) Urine Ketones (Negative) Urine Blood (Negative) Urine Nitrite (Negative) Urine Bilirubin (Negative) Urine Urobilinogen (Negative) Ur Leukocyte Esterase (Negative) Urine WBC (Auto) (0-5) /hpf Urine RBC (Auto) (0-4) /hpf U Hyaline Cast (Auto) (0-5) /lpf U Epithel Cells (Auto) (0-5) /lpf Urine Bacteria (Auto) (Negative) Influenza Type A (PCR) (Neg) Influenza Type B (PCR) (Neg) 09/21/19 09/21/19 09/21/19 Range/Units 21:44 22:00 22:09 WBC (4.8-10.8) K/uL RBC (4.7-6.1) M/uL Hgb (14.0-18.0) g/dL Hct (42-52) % MCV (80-100) fL MCH (25-34) pg MCHC (32-36) g/dL RDW Std Deviation (36.4-46.3) fL RDW Coeff of Virginie (11.5-14.5) % Plt Count (130-400) K/uL MPV (7.4-10.4) fL Immature Gran % (Auto) % Neut % (Auto) % Lymph % (Auto) % Brule % (Auto) % Eos % (Auto) % Baso % (Auto) % Immature Gran # (Auto) (0.00-0.02) K/uL Neut # (Auto) (1.4-6.5) K/uL Lymph # (Auto) (1.2-3.4) K/uL Brule # (Auto) (0.11-0.59) K/uL Eos # (Auto) (0-0.5) K/uL Baso # (Auto) (0-0.2) K/uL Absolute Nucleated RBC (0-0) K/uL Nucleated RBC % (auto) % PT (9.0-12.0) Seconds INR (0.9-1.1) APTT (21.0-31.0) Seconds PTT Ratio VBG pH (7.36-7.41) VBG pCO2 (38-50) mmHg VBG pO2 mmHg VBG HCO3 mmol/L VBG O2 Saturation % VBG Base Excess mEq/L Barometric Pressure mm/Hg Sodium (136-145) mmol/L Potassium (3.5-5.1) mmol/L Chloride (98-107) mmol/L Carbon Dioxide (21-32) mmol/L Anion Gap (3-11) BUN (7-18) mg/dl Creatinine (0.6-1.4) mg/dl Est Cr Clr Drug Dosing Est GFR ( Amer) Est GFR (Non-Af Amer) BUN/Creatinine Ratio (10-20) Glucose (70-99) mg/dl POC Glucose 306 H* (70-99) mg/dl Lactate (0.4-2.0) mmol/L Calcium (8.5-10.1) mg/dl Magnesium (1.8-2.4) mg/dl Total Bilirubin (0.2-1) mg/dl Direct Bilirubin (0-0.2) mg/dl AST (15-37) U/L ALT (12-78) U/L Alkaline Phosphatase (45-117) U/L Ammonia 33.1 H (11-32) umol/L Troponin I (0-0.045) ng/ml NT-Pro-B Natriuret Pep (0-1800) pg/ml Total Protein (6.4-8.2) gm/dl Albumin (3.4-5.0) gm/dl Lipase (73-393) U/L Urine Color Urine Appearance (Clear) Urine pH (4.5-7.5) Ur Specific [place] (1.000-1.030) Urine Protein (Negative) Urine Glucose (UA) (Negative) Urine Ketones (Negative) Urine Blood (Negative) Urine Nitrite (Negative) Urine Bilirubin (Negative) Urine Urobilinogen (Negative) Ur Leukocyte Esterase (Negative) Urine WBC (Auto) (0-5) /hpf Urine RBC (Auto) (0-4) /hpf U Hyaline Cast (Auto) (0-5) /lpf U Epithel Cells (Auto) (0-5) /lpf Urine Bacteria (Auto) (Negative) Influenza Type A (PCR) Neg for Influ A (Neg) Influenza Type B (PCR) Neg for Influ B (Neg) 09/21/19 09/21/19 09/21/19 Range/Units 22:09 22:15 22:41 WBC (4.8-10.8) K/uL RBC (4.7-6.1) M/uL Hgb (14.0-18.0) g/dL Hct (42-52) % MCV (80-100) fL MCH (25-34) pg MCHC (32-36) g/dL RDW Std Deviation (36.4-46.3) fL RDW Coeff of Virginie (11.5-14.5) % Plt Count (130-400) K/uL MPV (7.4-10.4) fL Immature Gran % (Auto) % Neut % (Auto) % Lymph % (Auto) % Brule % (Auto) % Eos % (Auto) % Baso % (Auto) % Immature Gran # (Auto) (0.00-0.02) K/uL Neut # (Auto) (1.4-6.5) K/uL Lymph # (Auto) (1.2-3.4) K/uL Brule # (Auto) (0.11-0.59) K/uL Eos # (Auto) (0-0.5) K/uL Baso # (Auto) (0-0.2) K/uL Absolute Nucleated RBC (0-0) K/uL Nucleated RBC % (auto) % PT (9.0-12.0) Seconds INR (0.9-1.1) APTT (21.0-31.0) Seconds PTT Ratio VBG pH 7.30 L (7.36-7.41) VBG pCO2 63 H (38-50) mmHg VBG pO2 21 mmHg VBG HCO3 30 mmol/L VBG O2 Saturation < 60.0 % VBG Base Excess 2.6 mEq/L Barometric Pressure 728.9 mm/Hg Sodium (136-145) mmol/L Potassium (3.5-5.1) mmol/L Chloride (98-107) mmol/L Carbon Dioxide (21-32) mmol/L Anion Gap (3-11) BUN (7-18) mg/dl Creatinine (0.6-1.4) mg/dl Est Cr Clr Drug Dosing Est GFR ( Amer) Est GFR (Non-Af Amer) BUN/Creatinine Ratio (10-20) Glucose (70-99) mg/dl POC Glucose (70-99) mg/dl Lactate 2.3 H* (0.4-2.0) mmol/L Calcium (8.5-10.1) mg/dl Magnesium (1.8-2.4) mg/dl Total Bilirubin (0.2-1) mg/dl Direct Bilirubin (0-0.2) mg/dl AST (15-37) U/L ALT (12-78) U/L Alkaline Phosphatase (45-117) U/L Ammonia (11-32) umol/L Troponin I (0-0.045) ng/ml NT-Pro-B Natriuret Pep (0-1800) pg/ml Total Protein (6.4-8.2) gm/dl Albumin (3.4-5.0) gm/dl Lipase (73-393) U/L Urine Color Dark Yellow Urine Appearance Clear (Clear) Urine pH 5.0 (4.5-7.5) Ur Specific [place] 1.019 (1.000-1.030) Urine Protein Trace H (Negative) Urine Glucose (UA) Negative (Negative) Urine Ketones Trace H (Negative) Urine Blood 2+ H (Negative) Urine Nitrite Negative (Negative) Urine Bilirubin Negative (Negative) Urine Urobilinogen Negative (Negative) Ur Leukocyte Esterase Trace H (Negative) Urine WBC (Auto) 1-5 (0-5) /hpf Urine RBC (Auto) 0-4 (0-4) /hpf U Hyaline Cast (Auto) 1-5 (0-5) /lpf U Epithel Cells (Auto) 0-5 (0-5) /lpf Urine Bacteria (Auto) Negative (Negative) Influenza Type A (PCR) (Neg) Influenza Type B (PCR) (Neg) Imaging Data Radiologist's Impression: XR pelvis 1-2V routine CLINICAL HISTORY: fall trauma. Pain. COMPARISON: 08/08/2015 DISCUSSION: Generalized degenerative change. Right femoral catheter is in position. No well-defined acute bony abnormality. There is no evidence for soft tissue swelling. IMPRESSION: Degenerative and postoperative change. No acute process. ACT 112: Negative or not required by law. The above report was generated using voice recognition software. It may contain grammatical, syntax or spelling errors. Electronically signed by: Raymond Romero M.D. 09/21/2019 9:32 PM Dictated: 09/21/192131 Transcribed: 09/21/192131 CT head/brain wo con CT DOSE: 537.48 mGy.cm HISTORY: Mental status change ams TECHNIQUE: Multiaxial CT images of the head were performed without the use of intravenous contrast. A dose lowering technique was utilized adhering to the principles of ALARA. Comparison: 05/27/2019 Findings: The paranasal sinuses and mastoid air cells are clear. The calvarium and skull base are intact. The ventricles and sulci are within normal limits. There is no mass, hematoma, midline shift, or acute infarct. There is a stable 1.3 cm calcified left frontal meningioma. Impression: No acute intracranial abnormality. ACT 112: Negative or not required by law. The above report was generated using voice recognition software. It may contain grammatical, syntax or spelling errors. Electronically signed by: Raymond Romero M.D. 09/21/2019 9:41 PM Dictated: 09/21/192138 Transcribed: 09/21/192138 XR chest 1V portable CLINICAL HISTORY: ams dyspnea COMPARISON STUDY: 2018 FINDINGS: Catheters and bipolar cardiac pacemaker unchanged. Lungs are considered clear. Diaphragms are smooth. IMPRESSION: No acute process. ACT 112: Negative or not required by law. The above report was generated using voice recognition software. It may contain grammatical, syntax or spelling errors. Electronically signed by: Raymond Romero M.D. 09/21/2019 9:31 PM Dictated: 09/21/192129 Transcribed: 09/21/192129 ECG Data Additional Comments: Paced rhythm with a rate of 76. QRS interval 146. QTc 508. No ectopy. MDM Narrative 2100: The patient was evaluated in room A1. A complete history and physical exam was performed. 2129: Patient hypotensive. Will give judicious small fluid boluses given the patient is a dialysis patient. 2299: Vital signs improved status post fluid boluses. Labs show mild lactic acidemia of 2.3. Patient will be treated for presumed empiric line sepsis which would explain the patient's altered mental status and hypotension. Broad- spectrum antibiotics given in the emergency department. Patient will be admitted to the [facility] system Dr. Parker notified. Impression & Plan Sepsis associated hypotension Discharge Plan Visit Data Chief Complaint: Altered Mental Status ED Provider: Jorge Alberto Garrett Discharge Problem: Sepsis associated hypotension Forms Stand Alone Forms: My [facility] Prescriptions Prescriptions: No Action atorvastatin [Lipitor] 80 mg tablet 80 mg PO HS RF: 0 ascorbic acid (vitamin C) [Vitamin C] 1,000 mg Tablet 1,000 mg PO QAM RF: 0 acetaminophen [Tylenol] 325 mg Tablet 650 mg PO Q4 PRN (Reason: ALL LEVELS OF PAIN/TEMP>100) RF: 0 gabapentin [Neurontin] 600 mg tablet 600 mg PO BID RF: 0 ipratropium-albuterol 0.5 mg-3 mg(2.5 mg base)/3 mL solution for nebulization 3 ml INHALATION Q6 PRN (Reason: COUGH, WHEEZING , DYSPENIA) RF: 0 bumetanide 2 mg tablet 2 mg PO BID RF: 0 famotidine 10 mg Tablet 10 mg PO 3XWK RF: 0 polyethylene glycol 3350 [Miralax] 17 gram Powder In Packet 17 g PO DAILY PRN (Reason: Constipation) RF: 0 metoprolol succinate [Toprol XL] 100 mg tablet extended release 24 hr 100 mg PO BID RF: 0 aspirin [Aspir-81] 81 mg Tablet,Delayed Release (Dr/Ec) 81 mg PO DAILY RF: 0 levothyroxine 100 mcg tablet 100 mcg PO DAILY RF: 0 insulin aspart U-100 [Novolog U-100 Insulin aspart] 100 unit/mL solution 5 unit subcut TIDM RF: 0 cephalexin 500 mg capsule 500 mg PO DAILY RF: 0 nitroglycerin [Nitrostat] 0.4 mg Tablet, Sublingual 0.4 mg sublingual UD PRN (Reason: Chest Pain) RF: 0 docusate sodium [Colace] 100 mg Capsule 100 mg PO BID RF: 0 levofloxacin [Levaquin] 500 mg tablet 500 mg PO Q OTHER DAY RF: 0 oxymetazoline [Afrin Sinus (oxymetazoline)] 0.05 % Virgil,Non-Aerosol 2 spray INTRANASAL Q8 PRN (Reason: Nasal Congestion) RF: 0 escitalopram oxalate [Lexapro] 5 mg tablet 7.5 mg PO QAM RF: 0 multivitamin Tablet,Chewable 1 tab PO DAILY RF: 0 Calcium 600 + D(3) 600 mg calcium- 200 unit Capsule 1 cap PO DAILY RF: 0 Basaglar KwikPen U-100 Insulin 100 unit/mL (3 mL) insulin pen 25 unit SUBCUT Q12 RF: 0 GenTeal Tears Mild 0.1-0.3 % Drops 1 drp OPHTHALMIC (EYE) DAILY RF: 0 ProSource 10-100 gram-kcal/30 mL Liquid 1 ea PO BID RF: 0 Eliquis 2.5 mg tablet 2.5 mg PO BID RF: 0 acetaminophen [Tylenol Extra Strength] 500 mg Tablet 1,000 mg PO Q8 PRN (Reason: Pain) RF: 0 cholecalciferol (vitamin D3) [Vitamin D3] 25 mcg (1,000 unit) Tablet 25 mcg PO DAILY RF: 0 Referrals Referrals: Cari Brewer at [place] [Primary Care Provider] -
--- NOTE | 2019-09-22 00:40 | History & Physical Report ---
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 Presumed Line Sepsis -likely explaining pt's AMS and hypotension -Cont IV Vanc/Zosyn -blood cx pending. Holding off on ID consult until results -LA on admission 2.3. Repeat 2.2, 1.5 -Careful IVF bolus as this is a HD pt. Received 750 cc in ED. Will give Albumin and cont with judicious small fluid boluses as needed -Will additionally order ECHO over concern for possible endocarditis CKD IV -requiring hemodialysis (ESRD) on //Wed at [facility]; most recent treatment today on -pt with permacath placement on 05/25/[address] Acosta -Daily BMP -Holding home Bumex 2 mg PO BID for now as we monitor volume status -Nephro consult appreciated AMS/Alzheimer's Dementia -baseline memory loss issues. Noted increasing confusion after dialysis today likely 2/2 being volume depleted -U/A without concern for acute UTI. Ammonia high end normal. CXR with no acute process. Head CT with no acute intracranial abnormality. Flu neg -history of hospital associated delirium. Will re-orient patient frequently. 1:1 sitter ordered. Fall precautions ordered 2/2 history of falls -will order speech eval. Start off with pureed diet. Aspiration precautions CAD/Afib/HTN/HLD -Cont Eliquis, statin and ASA as prescribed -holding Metoprolol, Bumex until BP improves Insulin Dependent DM 2/Diabetic Ulcers/Neuropathy -Last A1C 8.3 in Mar 2019. Will repeat in AM -Hold home regimen. SSI. Appreciate pharmacy glycemic management consult -Consulted wound care for ongoing management. Last visit 09/04/19 with Margo Gupta -pt on Keflex and Levaquin from Dr. Manuel, will hold for now -cont Gabapentin Hypothyroidism -TSH pending -Cont levothyroxine 100 mcg daily Anemia -hgb 10 on admit, currently at baseline -Receives iron infusions during HD -daily CBC FEN/GI: Pureed Diet, pending Speech Eval. DVT Prophylaxis: Eliquis Full Code Dispo: Med Tele. Pt from [facility]. CM consulted to assist in d/c planning. PT/OT while here. 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 History limited 2/2 pt's cognitive status, no family present at time of my evaluation. AMS started earlier in day around 2PM, occurred after pt had finished dialysis. At baseline, pt is normally A&O and very talkative. When EMS picked pt up, noted to be hypotensive and confused. CXR: No acute process. Head CT: No acute intracranial abnormality. Pelvis XR: Degenerative and postoperative change. No acute process. Pertinent Labs: hgb 10, K 5.4, Cr 3.83, Cvb511, LA 2.3, Alk Phos 149, BNP 7110, Albumin 2.6, Flu A/B neg. UA w/o concern for UTI. VBG: pH 7.3, CO2 63 ER Course: IV Cefepime/Vanc, NSS 250+500ml Allergies Allergy/AdvReac Type Severity Reaction Status Date / Time clindamycin AdvReac Mild Nausea Verified 09/21/19 22:06 Home Medications Home Medications Medication Instructions Recorded Confirmed Type Calcium 600 + D(3) 1 cap PO DAILY 09/21/19 09/21/19 History Eliquis 2.5 mg PO BID 09/21/19 09/21/19 History GenTeal Tears Mild 1 drp OPHTHALMIC (EYE) DAILY 09/21/19 09/21/19 History ProSource 1 ea PO BID 09/21/19 09/21/19 History acetaminophen [Tylenol Extra 1,000 mg PO Q8 PRN 09/21/19 09/21/19 History Strength] acetaminophen [Tylenol] 650 mg PO Q4 PRN 09/21/19 09/21/19 History ascorbic acid (vitamin C) [Vitamin 1,000 mg PO QAM 09/21/19 09/21/19 History C] aspirin [Aspir-81] 81 mg PO DAILY 09/21/19 09/21/19 History atorvastatin [Lipitor] 80 mg PO HS 09/21/19 09/21/19 History bumetanide 2 mg PO BID 09/21/19 09/21/19 History cephalexin 500 mg PO DAILY 09/21/19 09/21/19 History cholecalciferol (vitamin D3) 25 mcg PO DAILY 09/21/19 09/21/19 History [Vitamin D3] docusate sodium [Colace] 100 mg PO BID 09/21/19 09/21/19 History escitalopram oxalate [Lexapro] 7.5 mg PO QAM 09/21/19 09/21/19 History famotidine 10 mg PO 3XWK 09/21/19 09/21/19 History gabapentin [Neurontin] 600 mg PO BID 09/21/19 09/21/19 History insulin aspart U-100 [Novolog 5 unit SUBCUT TIDM 09/21/19 09/21/19 History U-100 Insulin aspart] ipratropium-albuterol 3 ml INHALATION Q6 PRN 09/21/19 09/21/19 History levofloxacin [Levaquin] 500 mg PO Q OTHER DAY 09/21/19 09/21/19 History levothyroxine 100 mcg PO DAILY 09/21/19 09/21/19 History metoprolol succinate [Toprol XL] 100 mg PO BID 09/21/19 09/21/19 History multivitamin 1 tab PO DAILY 09/21/19 09/21/19 History nitroglycerin [Nitrostat] 0.4 mg SUBLINGUAL UD PRN 09/21/19 09/21/19 History oxymetazoline [Afrin Sinus 2 spray INTRANASAL Q8 PRN 09/21/19 09/21/19 History (oxymetazoline)] polyethylene glycol 3350 [Miralax] 17 g PO DAILY PRN 09/21/19 09/21/19 History midodrine 10 mg PO UD #30 tab 09/24/19 Rx insulin glargine [Lantus Solostar 35 units SQ QPM #15 ml 09/25/19 Rx U-100 Insulin] Past Med/Surg History Medical History (Updated 09/24/19 @ 15:15 by Yousuf Davies MD) Actinic keratitis ARMS - SCALY; LEGS DEVELOPED OPEN WOUNDS STILL HAS SOME OPEN AREAS ON LEGS Age-related cognitive decline Alzheimer's dementia Anemia in chronic kidney disease (CKD) Broken shoulder (Acute) left shoulder feb 2019 Chronic kidney disease, stage IV (severe) [facility] ([place]) Compression fracture of lumbar vertebra Coronary artery disease S/P CABG X 4 (~2002) Dementia Diabetes IDDM DJD (degenerative joint disease) GERD (gastroesophageal reflux disease) CONTROLLED H/O prostate cancer brachytherapy treatment. Hemodialysis patient FISTULA LEFT ARM. receiving diaylsis Wednesday, & Wednesday @ [facility] History of brachytherapy History of kidney stones History of left bundle branch block (LBBB) HTN (hypertension) Hypercholesteremia Hypothyroid Ischemic cardiomyopathy s/p insertion of pacer/icd 2013. Stable. EF 55-60% 09/2017 echo. Obesity Permanent atrial fibrillation Asymptomatic per cardio 10/24/18. Rate controlled on BB, anticoagulated with Eliquis. Secondary hyperparathyroidism Sleep apnea NO LONGER USES CPAP Spinal stenosis Venous stasis Surgical History H/O four vessel coronary artery bypass graft CABG X 4 (~2002) H/O total knee replacement RIGHT History of cardioversion unsuccessful History of colonoscopy History of surgical removal of pilonidal cyst Hx of hemorrhoidectomy Presence of implantable cardioverter-defibrillator (ICD) PPM/ICD IMPLANTED 2013; [employer] LAST PACER CHECK S/P arteriovenous (AV) fistula creation left arm. Needs to start dialysis, but fistula swollen and unusable currently. Family History Sister Kidney stones Son Kidney stones Mother Diabetes Hypertension Heart disease Aunt Colon cancer Denies family history of Ovarian cancer Prostate cancer Myocardial infarction Breast cancer Social History Preferred Language: Macedonian Communication Ability: Impaired Visual Impairment: Limited Hearing Ability: Normal Flask Cleaner Required: No Beliefs That Will Affect Care: None marital status: Current Living Situation: Longterm current occupational status: retired Feels Safe at Home: Yes Smoking Status: Former smoker Tobacco Type: cigarettes ; Second Hand Exposure: No ; Hx Alcohol Use: No Hx Substance Use: No Review of Systems Review of Systems: Unobtainable due to cognitive status Physical Exam Constitutional: WD/WN, vitals as above + obese and + altered mental status (h/o dementia at baseline) Eyes: PERRL, conjunctivae normal, anicteric sclerae Respiratory: normal respiratory effort; no respiratory distress Auscultation: + rhonchi (diffuse throughout) Cardiovascular: RRR, no murmur, no edema Gastrointestinal (Abdomen): normal bowel sounds, soft, nontender, no hepatosplenomegaly Skin: + ulcer (lcer of right, left heel) diffuse ecchymosis UE Venous stasis ulcers of both lower extremities AVF LUE, bandaged over Permacath in the right groin Psychiatric: Orientation: alert (oriented to name only) Results & Data Results & Data ([facility]) Vital Signs (Past 12 Hours) Vital Signs Temp Pulse Pulse Resp BP BP Pulse Ox 09/21/19 23:15 60 18 104/47 L 98 09/21/19 22:30 63 21 91 09/21/19 22:26 70 21 104/52 L 97 09/21/19 22:15 67 24 106/64 98 09/21/19 22:03 60 16 101/63 100 09/21/19 21:45 69 15 92/50 L 100 09/21/19 21:40 107 H 21 79/52 L 94 09/21/19 21:22 71 15 81/39 L 99 09/21/19 21:16 76 17 96/72 L 90 09/21/19 21:06 36.3 C L 72 17 93/47 L 97 Code Status & VTE Plan Code Status FULL Supervising Physician Co-Signing Physician Notes Attending addendum: I have physically seen this patient, have supervised the medical residents activities, and agree with the H&P unless as otherwise noted. Assessment and Plan: Altered mental status/metabolic encephalopathy/presumed line sepsis/hypotension improved after 750 cc of normal saline in the ED- Vancomycin IV and Zosyn IV per pharmacokinetic monitoring. Gentle IV fluid rehydration. Echocardiogram to assess for endocarditis and position of line. CAD/hypertension/A. fib- Hold metoprolol and Bumex due to low blood pressure. Continue Eliquis and aspirin. CKD on HD on Wednesday//Wednesday- Consult nephrology. Follow serial BMP and magnesium levels. Remainder of orders and notations as noted. Resident Activity Tracking Resident Involvement: Resident Care Provided Care Provided: Adult Hospital Medicine
[2019-09-22] MEDS ORDERED: PIPERACILL/TAZOBAC CONSULT ACTIVE PRN (02:28)
[2019-09-22] MEDS ORDERED: GLUCOSE 10 TABS/TUBE PO PRN (02:28)
[2019-09-22] MEDS ORDERED: GLUCAGON FOR INJ 1 MG VIAL SQ PRN (02:28)
[2019-09-22] MEDS ORDERED: OXYMETAZOLINE 0.05% 30 ML BTL PRN (02:28)
[2019-09-22] MEDS ORDERED: GLUCOSE 40% GEL 15 GM TUBE PO PRN (02:28)
[2019-09-22] MEDS ORDERED: ALBUMIN 25% 50 ML IV ONE (02:28)
[2019-09-22] MEDS ORDERED: CARBOHYDRATES FOR HYPOGLYCEMIA PO PRN (02:28)
[2019-09-22] MEDS ORDERED: ACETAMINOPHEN 500 MG TAB PO PRN (02:28)
[2019-09-22] MEDS ORDERED: ACETAMINOPHEN 325 MG TAB PO PRN (02:28)
[2019-09-22] MEDS ORDERED: POLYETHYLENE (MIRALAX) 17 GM PACK PO PRN (02:28)
[2019-09-22] MEDS ORDERED: ONDANSETRON INJ 2 MG/ML 2 ML VIAL IV PRN (02:28)
[2019-09-22] MEDS ORDERED: VANCOMYCIN CONSULT ACTIVE PRN (02:28)
[2019-09-22] MEDS ORDERED: VANCOMYCIN HCL 1,000 MG in SODIUM CHLORIDE 0.9% 250 ML IV SCH (02:28)
[2019-09-22] MEDS ORDERED: ALUMINUM/MAGNESIUM SUSP 30 ML UDC PO PRN (02:28)
[2019-09-22] MEDS ORDERED: DEXTROSE 50% 50 ML SYRINGE IV PRN (02:28)
[2019-09-22] MEDS ORDERED: PHARMACY GLYCEMIC MGMT CONSULT PRN (03:24)
[2019-09-22] MEDS ORDERED: SODIUM CHLORIDE 0.9% 1000ML 250 ML IV ONE ×2 (03:31→06:23)
[2019-09-22] MEDS ORDERED: PIPERACILLIN/TAZOBACTAM 3.375 GM in DEXTROSE 5% 100 ML IV ONE (04:00)
[2019-09-22] MEDS ORDERED: PIPERACILLIN/TAZOBACTAM 4.5 GM in DEXTROSE 5% 100 ML IV ONE (04:00)
[2019-09-22] MEDS ORDERED: ALBUMIN 5% 250 ML IV ONE (04:49)
[2019-09-22] MEDS: INSULIN ASPART 100 UNITS/ML 3 ML PEN SC SCH ×5 (04:55→22:22)
[2019-09-22 05:32] LABS: Basophils # (auto) 0.03 K/uL (0-0.2); Basophils % (auto) 0.4 %; Eosinophils # (auto) 0.19 K/uL (0-0.5); Eosinophils % (auto) 2.6 %; Hematocrit (blood only) 31.2 % (42-52); Hemoglobin 9.6 g/dL (14.0-18.0); Immature Granulocytes # (auto) 0.13 K/uL (0.00-0.02); Immature Granulocytes % (auto) 1.8 %; Lymphocytes % (auto) 13.9 %; Mean Corpuscular Hemoglobin 32.8 pg (25-34); Mean Corpuscular Hgb Conc 30.8 g/dL (32-36); Mean Corpuscular Volume 106.5 fL (80-100); Mean Platelet Volume 9.7 fL (7.4-10.4); Monocytes # (auto) 0.69 K/uL (0.11-0.59); Monocytes % (auto) 9.6 %; Neutrophils # (auto) 5.14 K/uL (1.4-6.5); Neutrophils % (auto) 71.7 %; Nucleated RBC # (auto) 0.06 K/uL (0-0); Nucleated RBC % (auto) 0.8 %; Platelet Count 123 K/uL (130-400); RDW Standard Deviation 69.1 fL (36.4-46.3); Red Blood Count 2.93 M/uL (4.7-6.1); White Blood Count 7.18 K/uL (4.8-10.8)
[2019-09-22] MEDS: LEVOTHYROXINE SODIUM 100 MCG TABLET PO SCH (05:35)
[2019-09-22 05:51] LABS: BUN Creatinine Ratio 10.5 (10-20); Calcium 8.2 mg/dl (8.5-10.1); Creatinine Clr Calc Pharmacy 15.8 ml/min; Est GFR (African American) 14.3; Est GFR (Non-African American) 12.4; Estimated Average Glucose 126 mg/dl; Potassium 5.5 mmol/L (3.5-5.1)
[2019-09-22 06:01] LABS: Thyroid Stimulating Hormone 3.17 uIu/ml (0.300-4.500)
[2019-09-22] MEDS: ARTIFICIAL TEARS OP SCH (08:17)
[2019-09-22] MEDS: CALCIUM 600MG + VIT D 400 IU TAB PO SCH (08:17)
[2019-09-22] MEDS: DOCUSATE SODIUM 100 MG CAP PO SCH ×2 (08:18→19:58)
[2019-09-22] MEDS: ASPIRIN 81 MG ECTAB PO SCH (08:18)
[2019-09-22] MEDS: APIXABAN 2.5 MG TAB PO SCH ×2 (08:18→19:54)
[2019-09-22] MEDS: INSULIN GLARGINE SOLOSTAR 100 UNITS/ML 3 ML PEN SC SCH ×2 (08:19→22:23)
[2019-09-22] MEDS: ESCITALOPRAM OXALATE ORAL SOLN 5 MG/5 ML PO SCH (08:19)
[2019-09-22] MEDS: MULTIVITAMIN TAB PO SCH (08:20)
[2019-09-22] MEDS: GABAPENTIN 600 MG TAB PO SCH ×2 (08:20→19:55)
[2019-09-22] MEDS: CHOLECALCIFEROL 1,000 UNITS 25 MCG TAB PO SCH (08:21)
[2019-09-22] MEDS: ASCORBIC ACID 500 MG TAB PO SCH (08:21)
[2019-09-22] MEDS ORDERED: PROSOURCE NO CARB 30 ML/PKT PO SCH (09:00)
[2019-09-22] MEDS ORDERED: INSULIN GLARGINE SOLOSTAR 100 UNITS/ML 3 ML PEN SC SCH (09:00)
[2019-09-22] MEDS ORDERED: SODIUM POLYSTYRENE SULFONATE 15G/60ML SUSP PO ONE (09:30)
--- NOTE | 2019-09-22 10:39 | Nephrology Consultation ---
Date of Consultation September 22, 2019 Assessment & Plan (1) ESRD (end stage renal disease) on dialysis: ESRD On hemodialysis Wednesday, , Wednesday. Admitted with change in mental status, unclear etiology as workup otherwise unremarkable. No sign of sepsis, no fever, leukocytosis. Blood culture was drawn which is currently pending and started empirically on vancomycin and Zosyn. Given gentle hydration on admission and clinically improved. Potassium remains slightly elevated. --low-potassium diet, avoid any potassium supplement, give Kayexalate 30 grams p.o. x 1 dose --plan for dialysis tomorrow, if patient remain inpatient, will do dialysis here however, if patient clinically otherwise stable and plan to discharge this afternoon, he can have dialysis at outpatient dialysis facility tomorrow as his regular schedule. --dose medications for GFR less than 10 Will follow Thank you for allowing me to participate in your patient's care. It was a pleasure to see Lance (2) AMS (altered mental status): (3) Anemia in chronic kidney disease (CKD): History of Present Illness Reason for Consultation: End-stage renal disease on hemodialysis. Attending Physician: Yousuf Davies MD History of Present Illness Lance Holder is an 84-year-old male with end-stage renal disease on hemodialysis, admitted to the hospital yesterday with change in mental status. Nephrology consult was requested to manage hemodialysis while inpatient. Electronic medical records including labs and imaging are reviewed in detail during patient's visit. 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 He had hemodialysis yesterday as his regular schedule and dialysis session was uneventful. After dialysis he [place] [facility]. Later in the afternoon at the [place] [facility] he was found to have some change in mental status and was sent to ER for further evaluation. In ER he was hemodynamically stable, blood pressure was slightly low which is not unusual for him and he was given some gentle hydration with improvement in his clinical status. Workup including chest x-ray, CT scan of head was otherwise unremarkable. Potassium was noted to be slightly elevated at 5.7 which slightly improved to 5.5 this morning. No fever, chills or leukocytosis. Blood culture was drawn which is currently pending. He was empirically started on vancomycin and Zosyn. He is feeling much better today, seems to be at his baseline, awake, alert and having breakfast. He denied any symptom or concern. Potassium remained elevated at 5.5. Volume status, blood pressure acceptable. Allergies Allergy/AdvReac Type Severity Reaction Status Date / Time clindamycin AdvReac Mild Nausea Verified 09/21/19 22:06 Home Medications Home Medications Medication Instructions Recorded Confirmed Type acetaminophen [Tylenol Extra 1,000 mg PO Q8 PRN 09/21/19 09/21/19 History Strength] acetaminophen [Tylenol] 650 mg PO Q4 PRN 09/21/19 09/21/19 History amino ac-protein hydr-whey pro 1 ea PO BID 09/21/19 09/21/19 History [ProSource] apixaban [Eliquis] 2.5 mg PO BID 09/21/19 09/21/19 History ascorbic acid (vitamin C) [Vitamin 1,000 mg PO QAM 09/21/19 09/21/19 History C] aspirin [Aspir-81] 81 mg PO DAILY 09/21/19 09/21/19 History atorvastatin [Lipitor] 80 mg PO HS 09/21/19 09/21/19 History bumetanide 2 mg PO BID 09/21/19 09/21/19 History calcium carbonate-vitamin D3 1 cap PO DAILY 09/21/19 09/21/19 History [Calcium 600 + D(3)] cephalexin 500 mg PO DAILY 09/21/19 09/21/19 History cholecalciferol (vitamin D3) 25 mcg PO DAILY 09/21/19 09/21/19 History [Vitamin D3] dextran 70-hypromellose [GenTeal 1 drp OPHTHALMIC (EYE) DAILY 09/21/19 09/21/19 History Tears Mild] docusate sodium [Colace] 100 mg PO BID 09/21/19 09/21/19 History escitalopram oxalate [Lexapro] 7.5 mg PO QAM 09/21/19 09/21/19 History famotidine 10 mg PO 3XWK 09/21/19 09/21/19 History gabapentin [Neurontin] 600 mg PO BID 09/21/19 09/21/19 History insulin aspart U-100 [Novolog 5 unit SUBCUT TIDM 09/21/19 09/21/19 History U-100 Insulin aspart] insulin glargine [Basaglar KwikPen 25 unit SUBCUT Q12 09/21/19 09/21/19 History U-100 Insulin] ipratropium-albuterol 3 ml INHALATION Q6 PRN 09/21/19 09/21/19 History levofloxacin [Levaquin] 500 mg PO Q OTHER DAY 09/21/19 09/21/19 History levothyroxine 100 mcg PO DAILY 09/21/19 09/21/19 History metoprolol succinate [Toprol XL] 100 mg PO BID 09/21/19 09/21/19 History multivitamin 1 tab PO DAILY 09/21/19 09/21/19 History nitroglycerin [Nitrostat] 0.4 mg SUBLINGUAL UD PRN 09/21/19 09/21/19 History oxymetazoline [Afrin Sinus 2 spray INTRANASAL Q8 PRN 09/21/19 09/21/19 History (oxymetazoline)] polyethylene glycol 3350 [Miralax] 17 g PO DAILY PRN 09/21/19 09/21/19 History Patient History Medical History Actinic keratitis ARMS - SCALY; LEGS DEVELOPED OPEN WOUNDS STILL HAS SOME OPEN AREAS ON LEGS Age-related cognitive decline Alzheimer's dementia Broken shoulder (Acute) left shoulder feb 2019 Chronic kidney disease, stage IV (severe) [facility] [place] ([place]) Compression fracture of lumbar vertebra Coronary artery disease S/P CABG X 4 (~2002) Dementia Diabetes IDDM DJD (degenerative joint disease) GERD (gastroesophageal reflux disease) CONTROLLED H/O prostate cancer brachytherapy treatment. Hemodialysis patient FISTULA LEFT ARM. receiving diaylsis Wednesday, & Wednesday @ [facility] [place] History of brachytherapy History of kidney stones History of left bundle branch block (LBBB) HTN (hypertension) Hypercholesteremia Hypothyroid Ischemic cardiomyopathy s/p insertion of pacer/icd 2013. Stable. EF 55-60% 09/2017 echo. Obesity Permanent atrial fibrillation Asymptomatic per cardio 10/24/18. Rate controlled on BB, anticoagulated with Eliquis. Secondary hyperparathyroidism Sleep apnea NO LONGER USES CPAP Spinal stenosis Venous stasis Surgical History H/O four vessel coronary artery bypass graft CABG X 4 (~2002) H/O total knee replacement RIGHT History of cardioversion unsuccessful History of colonoscopy History of surgical removal of pilonidal cyst Hx of hemorrhoidectomy Presence of implantable cardioverter-defibrillator (ICD) PPM/ICD IMPLANTED 2013; [employer] LAST PACER CHECK S/P arteriovenous (AV) fistula creation left arm. Needs to start dialysis, but fistula swollen and unusable currently. Family History Sister Kidney stones Son Kidney stones Mother Diabetes Hypertension Heart disease Aunt Colon cancer Denies family history of Ovarian cancer Prostate cancer Myocardial infarction Breast cancer Social History Preferred Language: Mauritanian Communication Ability: Impaired Communication Ability Comment: pt lives at [facility] at this time Visual Impairment: Limited Hearing Ability: Normal Historiography Teacher Required: No Beliefs That Will Affect Care: None marital status: Current Living Situation: [employer] current occupational status: retired Other Information That Helps Us Care for You: No Feels Safe at Home: Yes Safety Concerns: Feels Safe At This Time Smoking Status: Former smoker Tobacco Type: cigarettes ; Second Hand Exposure: No ; Hx Alcohol Use: No Hx Substance Use: No Review of Systems Review of Systems: All systems reviewed & are unremarkable except as noted in HPI & below Physical Exam Constitutional: WD/WN, vitals as above well developed and well nourished; no acute distress Eyes: PERRL, conjunctivae normal, anicteric sclerae ENMT: external ear and nose normal, oropharynx normal Ears: no hearing impairment Neck: trachea midline Respiratory: normal respiratory effort, lungs clear to auscultation no cough Auscultation: no crackles, no rales and no wheezes Cardiovascular: RRR, no murmur, no edema Gastrointestinal (Abdomen): normal bowel sounds, soft, nontender, no hepatosplenomegaly Percussion/Palpation: abdomen nontender, no guarding and abdomen not rigid Musculoskeletal: Extremities: extremities normal to inspection Gait: normal gait Skin: no rashes, warm and dry Neurologic: awake; no focal motor deficits and not confused Psychiatric: A+Ox3, euthymic affect Results & Data Vital Signs (Past 12 Hours) Vital Signs Temp Pulse Pulse Resp BP BP Pulse Ox 09/22/19 08:00 36.5 C 61 20 102/66 100 09/22/19 06:13 59 L 90/55 L 04/03/20 04:47 36.4 C L 69 18 94/49 L 99 09/22/19 02:42 36.9 C 62 20 99/49 L 98 09/22/19 01:49 60 16 97/47 L 100 09/22/19 00:51 66 16 97/55 L 99 09/21/19 23:15 60 18 104/47 L 98 PG Care Time/CCT Total # of Minutes Spent Total Time Spent with Patient: Total time spent is greater than 50% in coordination of care (as documented) at patient's floor/unit and/or counseling patient: Coding Level of Care Code 08699 Inpt Consult Level 5 Diagnoses ESRD (end stage renal disease) on dialysis N18.6; Z99.2 AMS (altered mental status) R41.82 Anemia in chronic kidney disease (CKD) N18.9; D63.1
--- NOTE | 2019-09-22 11:59 | Pharmacy Report ---
Pharmacy Abx Initial Consult - Date of Service September 22, 2019 - Pharmacy Dosing Scope Date of Consult: 09/21/19 Consultation requested by: Dr. Correa Pharmacy is consulted to initiate Vancomycin + Zosyn IV dosing therapy, order appropriate labs and adjust drug dose/frequency. - Subjective The patient is a 84 year old M admitted on 09/22/19 01:24. - Objective Height: 5 ft 7 in Weight: 108 kg Vital Signs (Past 12hrs): Vital Signs Temp Pulse Pulse Resp BP BP Pulse Ox 09/22/19 11:34 36.3 C L 60 18 93/54 L 100 09/22/19 08:00 36.5 C 61 20 102/66 100 09/22/19 06:13 59 L 90/55 L 09/22/19 04:47 36.4 C L 69 18 94/49 L 99 09/22/19 02:42 36.9 C 62 20 99/49 L 98 09/22/19 01:49 60 16 97/47 L 100 09/22/19 00:51 66 16 97/55 L 99 Lab Results (24hrs): Laboratory Tests (24 Hours) 09/22/19 09/22/19 09/21/19 05:23 05:23 20:50 WBC 7.18 Neut # (Auto) 5.14 Creatinine 4.16 H D 3.83 H Est Cr Clr Drug Dosing 15.8 Not Reportable 09/21/19 20:50 WBC 6.30 Neut # (Auto) 4.57 Creatinine Est Cr Clr Drug Dosing Micro Results: 09/21/19 22:45 Aerobic Blood Culture - Pending Blood Anaerobic Blood Culture - Pending 09/21/19 22:09 Aerobic Blood Culture - Pending Blood Anaerobic Blood Culture - Pending - Risk Factors for Resistance * Resident in a alf or extended-care facility * Chronic dialysis within the past 30 days * Antimicrobial use within the last 90 days Levaquin & Keflex for DM ulcers - Assessment & Plan Assessment 84 year old M adm for AMS - presumed line sepsis vs endocarditis 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 Plan Vancomycin IV * Estimated PK Parameters: N/A; on HD. * Loading dose: 2250 mg (20 mg/kg) * Maintenance dose: 500-1000 mg IV based on pre-HD level per protocol * Goal trough level for Bacteremia/Endocarditis : 15 to 20 mcg/mL * Random level ordered for 09/23/19 prior to HD * Will dose based on pre-HD level to maintain random levels in goal trough range Piperacillin/tazobactam * 4.5 g bolus administered over 30 minutes, then 4.5 g IV extended infusion hunter ry12 hours for CrCl 20 mL/min or less and dialysis. * Aggressive dosing selected due to BMI 35 or more Pharmacy will continue to follow and will adjust dose/frequency as necessary. Thank you.
--- NOTE | 2019-09-22 13:04 | Pharmacy Report ---
Glycemic Control Consultation - Date of Service September 22, 2019 - Scope Scope: Glycemic Pharmacist consulted for glycemic control and to write orders per [facility] inpatient glycemic control protocol. - Objective Weight: 108 kg Accuchecks BSG (last 24hrs): 09/21/19 09/21/19 09/22/19 20:50 21:44 03:12 Glucose 299 H POC Glucose 306 H* 180 H 09/22/19 09/22/19 09/22/19 05:23 07:44 11:32 Glucose 160 H POC Glucose 165 H 246 H Laboratory Data (last 24hrs): 09/21/19 09/22/19 20:50 05:23 Potassium 5.4 H 5.5 H Carbon Dioxide 31 26 Anion Gap 5.0 4.0 Creatinine 3.83 H 4.16 H D Est Cr Clr Drug Dosing Not Reportable 15.8 HbA1c: Hemoglobin A1c 6.0 % (4.5-5.6) H 09/22/19 05:23 * However, this result is likely somewhat unreliable in ESRD patients d/t interactions between the A1c analyzing technique and high levels of urea in ESRD, reduced RBC life span, iron deficiency anemia, and EPO administration. HbA1c > 7.5% in ESRD patient may overestimate the extent of hyperglycemia in ESRD patients. - Recent Pertinent Medications Outpatient Anti-diabetic Regimen: * Lantus 25 units SQ BID * NovoLog 5 units SQ TIDM Risk Factors for Insulin Resistance: * Infection * Diet - Assessment & Plan Assessment & Plan: ASSESSMENT: * 84yo T2DM male admitted for possible line sepsis; r/o endocarditis? * Pt with DM related complications including: Chronic Diabetic Ulcers, Neuropathy, Nephropathy/CKD/HD 2x/week (, , ) * A1c difficult to interpret d/t CKD/HD * Pt is maintained on SQ basal bolus insulin dosing regimen as an outpatient. However, outpatient dosing is heavily weighted towards basal insulin (total daily dose 65 units; 50 units of that is basal) * Will attempt to re-distribute regimen more equally for inpatient use - that way hypoglycemia does not occur with changes in PO intake and too much basal insulin on board. * Goal is to maintain BSGs <200 mg/dl (ideally <150 mg/dl) to prevent infectious complications * Chronic DM Ulcers: Could consider any of the treatment modalities below to promote wound healing * Zinc: 50 mg elemental zinc (e.g., 220 mg zinc sulfate) PO three times per day until wound healed. * Vitamin C: 500-3000mg/day depending on whether it causes soft stool, then back off * Protein: may consult dietary for protein supplement recommendation. Could consider boost glucose control supplement PLAN FOR INPATIENT GLYCEMIC CONTROL: re-distribute outpatient regimen to even distribution of basal:prandial and titrate based on BSG trends * Basal insulin * Start with Lantus 18 units SQ BID , then titrate based on BSG trends * BSG below 140 mg/dl --> 10 units * BSG 140 - 180 mg/dl--> 18 units * BSG > 180 mg/dl --> 27 units * Bolus insulin * NovoLog per scale ACHS or Q6hrs while NPO * Goal Range: Low 120 mg/dL - High 150 mg/dL * Correction Factor: 20 mg/dL/unit * Nutritional / Prandial insulin per carb ratio of 1 unit per 7 grams CHO consumed * Please note that the plan above was derived based on current level of insulin resistance and hospital stress. These recommendations are appropriate for inpatient admission only. Plan of care upon discharge will need to be reassessed to avoid potential outpatient hypo/hyperglycemia. Thank you.
[2019-09-22] MEDS: PIPERACILLIN/TAZOBACTAM 4.5 GM in DEXTROSE 5% 100 ML IV SCH (13:25)
--- NOTE | 2019-09-22 14:35 | XCELERA ---
[id number] [id number]
--- NOTE | 2019-09-22 14:46 | Electrocardiogram Report ---
Test Reason : Blood Pressure : / mmHG Vent. Rate : 076 BPM Atrial Rate : 090 BPM P-R Int : 000 ms QRS Dur : 146 ms QT Int : 452 ms P-R-T Axes : 000 245 063 degrees QTc Int : 508 ms Ventricular-paced rhythm with occasional supraventricular complexes Abnormal ECG When compared with ECG of 21-APR-2019 12:15, Vent. rate has increased BY 16 BPM Confirmed by Vladimir Combs ([id number]) on 09/22/2019 2:45:55 PM Referred By: Cari waters [facility] Confirmed By:Vladimir Combs
--- NOTE | 2019-09-22 19:53 | Hospitalist Progress Note ---
Date of Service September 22, 2019 Assessment & Plan (1) AMS (altered mental status): GCS 12 in ER. Currently 15 although remains confused as per family discussion this is likely his baseline. Unclear altered mental state but given after dialysis suspect just hypotension related. However BP normal provided on [facility] documentation and asymptomatic with low blood pressures in the office from prior documentation.Will restart on home meds to make sure he is able to tolerate home medication regimen prior to discharge. Unclear diagnosis made of sepsis on admission as patient did not have a WBC, HR 72 and was afebrile. Will continue on broad spectrum antibiotics given improvement until blood cultures negative although unclear if this really resolved his symptoms. By history has similar episodes with high and low glucose levels and glucose 306 on admission. Although he is a high risk of infection with his foot ulcers they do not appear to be acutely worse than previous pictures. Multiple prior organisms grown which were reviewed. Last BM may be contributing although none recorded since and he appears to be back to his baseline. Kayexalate should help with this. TTE unremarkable, U/A without concern for acute UTI. Ammonia high end normal - unlikely contributory. CXR with no acute process. Head CT with no acute intracranial abnormality. Flu neg (2) Dementia: baseline confusion history of delirium (3) Hyperkalemia: Secondary to ESRD on dialysis. Management by nephrology with dialysis planned for tomorrow. Kayexalate as prescribed by nephrology (4) ESRD (end stage renal disease) on dialysis: ESRD On hemodialysis Wednesday, , Wednesday. Appreciate nephrology management of this. (5) Anemia in chronic kidney disease (CKD): Stable. Management by nephrology. (6) Peripheral arterial disease: Not for vascular interventions as per recent vascular outpatient note. (7) Diabetic ulcer of left heel: Chronic ulcers looked after by wound clinic. Currently on Keflex and Levaquin as per prior cultures. 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 HbA1C 6.0 suggesting overtreatment although not particularly accurate in dialysis patients (11) Hypothyroid: TSH WNL. Continue levothyroxine 100 mcg PO daily (12) DVT prophylaxis: Continue home dose of Eliquis Admission and Anticipated Discharge Date Admission Date: September 22, 2019 Unable to contact KENNETH today to discuss discharge planning. Will try again tomorrow. Subjective Unable to get history from patient. Clear dementia/delirium but sitting calmly in the chair; just wants to argue with me whether he is in hospital or not and asks how I am going to joaquin him. Reviewed records from [facility]. He denies any pain but questionable comprehension. Tried calling his (KENNETH) but engaged on multiple occasions. Called his daughter ?in-law Nya and updated over the phone. She reports he is mostly at his baseline at this time. Gets more confused when moved from [facility] to the hospital. Argues a lot when he is more confused. He currently lives at [facility] but had planned to transfer to [facility] but delayed due to current pandemic. She confirms that his is KENNETH and wants him to be full code. She reports he is usually confused when his glucose low or very high. Review of Systems Review of Systems: Unobtainable due to cognitive status Physical Exam Constitutional: well developed, + obese and + altered mental status (h/o dementia at baseline); + not well nourished and no acute distress Eyes: EOM intact bilaterally (grossly normal) and + pinpoint pupils; sclerae not anicteric ENMT: Ears: no hearing impairment Neck: trachea midline; no tracheal deviation Respiratory: normal respiratory effort; no respiratory distress and no cough Auscultation: + rhonchi (mild throughout); no crackles, no rales and no wheezes Cardiovascular: Rate/Rhythm: regular rate and regular rhythm Heart Sounds: no murmur Vessels: no JVD Extremities: normal capillary refill and + pedal edema (1+ equal b/l); no calf tenderness Gastrointestinal (Abdomen): Inspection/Auscultation: normal bowel sounds Percussion/Palpation: abdomen soft; abdomen nontender, no guarding and abdomen not rigid Skin: + ulcer (bilateral heel ulcers with odor, no pus, no surrounding cellulitis) Neurologic: awake; not confused Psychiatric: Orientation: alert and oriented to person (self); + not oriented to place, + not oriented to time and + uncooperative Eye Contact: good eye contact Results & Data Results & Data ([facility]) Vital Signs (Past 12 Hours) Vital Signs Temp Pulse Resp BP Pulse Ox 09/22/19 15:39 36.6 C 62 20 114/61 95 09/22/19 11:34 36.3 C L 60 18 93/54 L 100 09/22/19 08:00 36.5 C 61 20 102/66 100 PG Care Time/CCT Total # of Minutes Spent Total Time Spent with Patient: Total time spent is greater than 50% in coordination of care (as documented) at patient's floor/unit and/or counseling patient: Coding Level of Care Code 63118 Subseq Hosp Care Lvl 3 Diagnoses AMS (altered mental status) R40.4 Altered mental status type: transient alteration of awareness Dementia F03.91 Dementia behavioral disturbance: with behavioral disturbance Dementia type: unspecified type Hyperkalemia E87.5 ESRD (end stage renal disease) on dialysis N18.6; Z99.2 Anemia in chronic kidney disease (CKD) N18.9; D63.1 Peripheral arterial disease I73.9 Diabetic ulcer of left heel E11.621; L97.429 Diabetes mellitus type: type 2 Non-pressure ulcer stage: unspecified non-pressure ulcer stage Diabetic ulcer of right heel E11.621; L97.419 Diabetes mellitus type: type 2 Non-pressure ulcer stage: unspecified non-pressure ulcer stage Coronary artery disease I25.10 Diabetes mellitus type 2, insulin dependent E11.9; Z79.4 Hypothyroid E03.9 Hypothyroidism type: unspecified DVT prophylaxis Z29.9 (1) Dementia Dementia behavioral disturbance: with behavioral disturbance Dementia type: unspecified type Qualified Code(s): F03.91 - Unspecified dementia with behavioral disturbance (2) Hypothyroid Hypothyroidism type: unspecified Qualified Code(s): E03.9 - Hypothyroidism, unspecified (3) AMS (altered mental status) Altered mental status type: transient alteration of awareness Qualified Code(s): R40.4 - Transient alteration of awareness (4) Diabetic ulcer of right heel Diabetes mellitus type: type 2 Non-pressure ulcer stage: unspecified non- pressure ulcer stage Qualified Code(s): E11.621 - Type 2 diabetes mellitus with foot ulcer; L97.419 - Non-pressure chronic ulcer of right heel and midfoot with unspecified severity (5) Diabetic ulcer of left heel Diabetes mellitus type: type 2 Non-pressure ulcer stage: unspecified non- pressure ulcer stage Qualified Code(s): E11.621 - Type 2 diabetes mellitus with foot ulcer; L97.429 - Non-pressure chronic ulcer of left heel and midfoot with unspecified severity
[2019-09-22] MEDS: PROSOURCE NO CARB 30 ML/PKT PO SCH (19:57)
[2019-09-22] MEDS: ATORVASTATIN 40 MG TAB PO SCH (19:58)
[2019-09-22] MEDS ORDERED: FAMOTIDINE 10 MG TABLET PO SCH (21:00)
[2019-09-22] MEDS: METOPROLOL SUCC 50MG EXT REL TAB PO SCH (22:24)
[2019-09-22] MEDS: BUMETANIDE 1 MG TAB PO SCH (22:24)
[2019-09-23] MEDS: PIPERACILLIN/TAZOBACTAM 4.5 GM in DEXTROSE 5% 100 ML IV SCH ×2 (01:56→15:06)
[2019-09-23] MEDS: LEVOTHYROXINE SODIUM 100 MCG TABLET PO SCH (05:46)
[2019-09-23 06:27] LABS: Basophils # (auto) 0.02 K/uL (0-0.2); Basophils % (auto) 0.2 %; Eosinophils % (auto) 2.5 %; Hematocrit (blood only) 28.7 % (42-52); Hemoglobin 8.9 g/dL (14.0-18.0); Immature Granulocytes # (auto) 0.09 K/uL (0.00-0.02); Immature Granulocytes % (auto) 1.1 %; Lymphocytes # (auto) 1.04 K/uL (1.2-3.4); Lymphocytes % (auto) 12.9 %; Mean Corpuscular Hemoglobin 32.6 pg (25-34); Mean Corpuscular Volume 105.1 fL (80-100); Mean Platelet Volume 9.5 fL (7.4-10.4); Monocytes % (auto) 12.4 %; Neutrophils # (auto) 5.73 K/uL (1.4-6.5); Neutrophils % (auto) 70.9 %; Platelet Count 114 K/uL (130-400); RDW Coefficient of Variation 17.8 % (11.5-14.5); RDW Standard Deviation 67.8 fL (36.4-46.3); Red Blood Count 2.73 M/uL (4.7-6.1); White Blood Count 8.08 K/uL (4.8-10.8)
[2019-09-23] MEDS ORDERED: SODIUM CHLORIDE 0.9% 1000ML 1,000 ML IV PRN (07:00)
[2019-09-23 07:23] LABS: Albumin Globulin Ratio 0.8 (0.9-2); Albumin Level 2.6 gm/dl (3.4-5.0); BUN Creatinine Ratio 11.1 (10-20); Bilirubin,Total 0.6 mg/dl (0.2-1); Calcium 7.9 mg/dl (8.5-10.1); Creatinine Clr Calc Pharmacy 12.3 ml/min; Est GFR (African American) 10.4; Globulin 3.4 gm/dl (2.5-4.0); Potassium 5.3 mmol/L (3.5-5.1)
[2019-09-23] MEDS: ARTIFICIAL TEARS OP SCH (09:11)
[2019-09-23] MEDS: INSULIN ASPART 100 UNITS/ML 3 ML PEN SC SCH ×4 (09:11→21:52)
[2019-09-23] MEDS: BUMETANIDE 1 MG TAB PO SCH ×2 (09:11→21:50)
[2019-09-23] MEDS: ASPIRIN 81 MG ECTAB PO SCH (09:12)
[2019-09-23] MEDS: MULTIVITAMIN TAB PO SCH (09:12)
[2019-09-23] MEDS: APIXABAN 2.5 MG TAB PO SCH ×2 (09:12→21:50)
[2019-09-23] MEDS: CALCIUM 600MG + VIT D 400 IU TAB PO SCH (09:12)
[2019-09-23] MEDS: DOCUSATE SODIUM 100 MG CAP PO SCH ×2 (09:12→21:50)
[2019-09-23] MEDS: ESCITALOPRAM OXALATE ORAL SOLN 5 MG/5 ML PO SCH (09:12)
[2019-09-23] MEDS: ASCORBIC ACID 500 MG TAB PO SCH (09:13)
[2019-09-23] MEDS: GABAPENTIN 600 MG TAB PO SCH ×2 (09:13→21:49)
[2019-09-23] MEDS: PROSOURCE NO CARB 30 ML/PKT PO SCH ×2 (09:13→21:49)
[2019-09-23] MEDS: CHOLECALCIFEROL 1,000 UNITS 25 MCG TAB PO SCH (09:13)
[2019-09-23] MEDS: METOPROLOL SUCC 50MG EXT REL TAB PO SCH ×2 (09:13→21:52)
[2019-09-23] MEDS ORDERED: MIDODRINE HCL 10 MG TAB PO STA (09:21)
[2019-09-23 09:36] LABS: Folate (Folic Acid) 18.63 ng/ml (>5.38)
--- NOTE | 2019-09-23 12:59 | Nephrology Progress Note ---
Date of Service September 23, 2019 Assessment & Plan (1) ESRD (end stage renal disease) on dialysis: TTS schedule. Qb adequate A via femoral TDC and return via UE AVF. 2K bath for hyperkalemia. Adequate clearance. Orders reviewed with nurse. I discussed the patient's status with the dialysis nurse from [facility] as well. 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 UF limited, current goal 2 L. He is breathing comfortably. He has some chronic LE and dependent edema. Fluid restriction is being enforced. BP chronically low during treatment. Midodrine provided per Rx. Renal diet enforced. No additional changes at this time. BP and volume status overall appear acceptable. (2) AMS (altered mental status): Mental status appears to have returned to baseline. Afebrile. Blood cultures no growth to date. Urine microscopy acellular on admission. Gross hematuria via Bad[place] currently. Maintained on Eliquis. Heparin held with HD. (3) Anemia in chronic kidney disease (CKD): Will monitor. Maintained on Micera as outpatient. Subjective Lance was seen and evaluate during hemodialysis today. He was tolerating HD well. No fevers noted. Lance responds to questions. He is oriented to person but does not demonstrate the ability to process new information. Current mental status consistent with baseline that I have seen as an outpatient at the dialysis unit. Oozing noted around arterial needle. No infiltration noted. Switched to femoral catheter. Review of Systems Review of Systems: Unobtainable due to cognitive status Lance denies pain or dyspnea. No fevers. Physical Exam Constitutional: well developed, no ill appearing, no acute distress Cardiovascular: Extremities: + AV fistula Femoral catheter set for arterial pull, Qb adequate. Access and return pressures acceptable, some oozing from AVF noted as well as chronic ecchymosis Genitourinary: Badillo draining gross hematuria with clots Results & Data Vital Signs (Past 12 Hours) Vital Signs Temp Pulse Pulse Pulse Resp BP BP 09/23/19 12:20 63 70/39 L 09/23/19 12:00 64 75/38 L 09/23/19 11:40 56 L 71/43 L 09/23/19 11:33 62 69/38 L 09/23/19 11:28 62 68/36 L 09/23/19 11:00 63 82/41 L 09/23/19 10:40 61 85/49 L 09/23/19 10:26 63 85/48 L 09/23/19 10:20 52 L 68/45 L 09/23/19 10:14 60 88/30 L 09/23/19 10:03 36.6 C 62 09/23/19 07:50 36.4 C L 60 20 96/61 L 09/23/19 06:13 91/54 L 09/23/19 04:34 36.7 C 64 18 76/42 L Pulse Ox 09/23/19 12:20 09/23/19 12:00 09/23/19 11:40 09/23/19 11:33 09/23/19 11:28 09/23/19 11:00 09/23/19 10:40 09/23/19 10:26 09/23/19 10:20 09/23/19 10:14 09/23/19 10:03 09/23/19 07:50 97 09/23/19 06:13 09/23/19 04:34 100 PG Care Time/CCT Total # of Minutes Spent Total Time Spent with Patient: Total time spent is greater than 50% in coordination of care (as documented) at patient's floor/unit and/or counseling patient: Coding Level of Care Code 48361 Subseq Hosp Care Lvl 3 Diagnoses ESRD (end stage renal disease) on dialysis N18.6; Z99.2 AMS (altered mental status) R40.4 Altered mental status type: transient alteration of awareness Anemia in chronic kidney disease (CKD) N18.9; D63.1 (1) AMS (altered mental status) Altered mental status type: transient alteration of awareness Qualified Code(s): R40.4 - Transient alteration of awareness
--- NOTE | 2019-09-23 14:50 | Pharmacy Report ---
Pharmacy Glycemic Short Note 2 - Date of Service September 23, 2019 - Glycemic Short BSG Results (Last 24 hours): 09/22/19 09/22/19 09/23/19 16:24 21:00 06:07 Glucose 68 L POC Glucose 144 H 148 H 09/23/19 09/23/19 09/23/19 07:16 07:18 07:48 Glucose POC Glucose 66 L* 62 L* 120 H 09/23/19 09/23/19 08:33 08:57 Glucose POC Glucose 93 95 OUTPATIENT ANTIDIABETIC REGIMEN: * Lantus 25 units SQ BID * Novolog 5 units TID with meals * A1c = 6% (09/22/19) ASSESSMENT: * 84 yo T2DM with chronic Diabetic Ulcers, Neuropathy, Nephropathy/CKD/HD 2x/week (, , ) * Goal is to maintain BSGs <200 mg/dl (ideally <150 mg/dl) to prevent infectious complications * Pt received 54 units of insulin yesterday * 36 units of basal and 18 units of bolus * BSGs ranged from 144 - 246 mg/dL * AM hypoglycemia despite decrease in basal insulin compared to home usage. Held Lantus this morning. Decrease Lantus scale for this evening. * No changes to Novolog orders PLAN FOR INPATIENT GLYCEMIC CONTROL: * Basal insulin - decrease * Hold 4/ AM, then: * Lantus 10-18 units SQ BID 10 units for BSG < 140 14 units for BSG 140-180 18 units for BSG > 180 * Bolus insulin * NovoLog per scale ACHS or Q6hrs while NPO * Goal Range: Low 120 mg/dL - High 150 mg/dL * Correction Factor: 20 mg/dL/unit * Nutritional / Prandial insulin per carb ratio of 1 unit per 6 grams CHO consumed PLAN FOR DISCHARGE: * A1c = 6% * However, this result is likely somewhat unreliable in ESRD patients d/t interactions between the A1c analyzing technique and high levels of urea in ESRD, reduced RBC life span, iron deficiency anemia, and EPO administration. HbA1c > 7.5% in ESRD patient may overestimate the extent of hyperglycemia in ESRD patients. Chronic DM Ulcers: Could consider any of the treatment modalities below to promo te wound healing * Zinc: 50 mg elemental zinc (e.g., 220 mg zinc sulfate) PO three times per day until wound healed. * Vitamin C: 500-3000mg/day depending on whether it causes soft stool, then back off * Protein: may consult dietary for protein supplement recommendation. Could consider boost glucose control supplement Thank you.
[2019-09-23] MEDS ORDERED: VANCOMYCIN HCL 500 MG in SODIUM CHLORIDE 0.9% 250 ML IV SCH (16:00)
--- NOTE | 2019-09-23 17:43 | Hospitalist Progress Note ---
Date of Service September 23, 2019 Assessment & Plan (1) AMS (altered mental status): GCS 12 in ER. Main presentation at halfway was really unresponsiveness. Currently 15 although remains confused as per family discussion this is likely his baseline. Unclear etiology of decreased mental state although his glucose readings here being labile suggests this may have been the cause. Unclear diagnosis made of sepsis on admission as patient did not have a WBC, HR 72 and was afebrile. Will continue on broad spectrum antibiotics given improvement until blood cultures negative although unclear if this really resolved his symptoms. Although he is a high risk of infection with his foot ulcers they do not appear to be acutely worse than previous pictures. Multiple prior organisms grown which were reviewed. Last BM may be contributing although none recorded since and he appears to be back to his baseline. Kayexalate should help with this. TTE unremarkable, U/A without concern for acute UTI. Ammonia high end normal - unlikely contributory. CXR with no acute process. Head CT with no acute intracranial abnormality. Flu neg (2) Hypoglycemia: Possible cause of above. Will likely need insulin adjustments on discharge. (3) Dementia: baseline confusion history of delirium (4) Hyperkalemia: Secondary to ESRD on dialysis. Management by nephrology with dialysis planned for tomorrow. Kayexalate as prescribed by nephrology (5) ESRD (end stage renal disease) on dialysis: ESRD On hemodialysis Wednesday, , Wednesday. Dialysis performed today. Appreciate nephrology management of this. (6) Anemia in chronic kidney disease (CKD): Stable. Management by nephrology. (7) Peripheral arterial disease: Not for vascular interventions as per recent vascular outpatient note. (8) Diabetic ulcer of left heel: Chronic ulcers looked after by wound clinic. Currently on Keflex and Levaquin as per prior cultures. Appreciate wound care management of this (9) Diabetic ulcer of right heel: as above (10) Coronary artery disease: - Cont Eliquis, statin and ASA as prescribed - restarted on home meds bumex and metoprolol after discussion with Dr Celis (11) Diabetes mellitus type 2, insulin dependent: Appreciate pharmacy glycemic control. HbA1C 6.0 suggesting overtreatment although not particularly accurate in dialysis patients (12) Hypothyroid: TSH WNL. Continue levothyroxine 100 mcg PO daily (13) DVT prophylaxis: Continue home dose of Eliquis Admission and Anticipated Discharge Date Admission Date: September 22, 2019 Plan for discharge back to [facility] if blood cultures after 48 hours negative, will switch back to outpatient antibiotics. Anticipated date of discharge: 09/24/19 Subjective Patient seen after dialysis. He remains about the same amount of confusion as yesterday. Unaware he is in hospital. Had hypoglycemic episode this morning but apparently was awake at that time. Discussed with his over the phone and she reports Daniella were unable to wake the patient up. Unknown glucose level but Discussed with Dr Celis who reports concern from his dialysis nurses that he has been deteriorating for some time and generally not doing well with dialysis. Planned for family meeting next week with Dr Bah. Review of Systems Review of Systems: Unobtainable due to cognitive status Physical Exam Constitutional: well developed, + obese and + altered mental status (h/o dementia, suspected to be at baseline); + not well nourished and no acute distress Eyes: EOM intact bilaterally (grossly normal) and + pinpoint pupils; sclerae not anicteric ENMT: Ears: no hearing impairment Neck: trachea midline; no tracheal deviation Respiratory: normal respiratory effort; no respiratory distress and no cough Auscultation: + rhonchi (mild throughout); no crackles, no rales and no wheezes Cardiovascular: Rate/Rhythm: regular rate and regular rhythm Heart Sounds: no murmur Vessels: no JVD Extremities: normal capillary refill and + pedal edema (1+ equal b/l); no calf tenderness Gastrointestinal (Abdomen): Inspection/Auscultation: normal bowel sounds Percussion/Palpation: abdomen soft; abdomen nontender, no guarding and abdomen not rigid Skin: No cellulitis around permacath site Neurologic: awake; not confused Psychiatric: Orientation: alert and oriented to person (self); + not oriented to place, + not oriented to time and + uncooperative Eye Contact: good eye contact Results & Data Results & Data ([facility]) Vital Signs (Past 12 Hours) Vital Signs Temp Pulse Pulse Pulse Resp BP BP 09/23/19 15:11 36.4 C L 61 20 87/50 L 09/23/19 14:50 36.8 C 60 80/46 L 09/23/19 14:20 61 83/38 L 09/23/19 14:00 60 71/50 L 09/23/19 13:40 60 83/44 L 09/23/19 13:20 64 80/41 L 09/23/19 13:00 61 79/39 L 09/23/19 12:40 58 L 65/48 L 09/23/19 12:20 63 70/39 L 09/23/19 12:00 64 75/38 L 09/23/19 11:40 56 L 71/43 L 09/23/19 11:33 62 69/38 L 09/23/19 11:28 62 68/36 L 09/23/19 11:00 63 82/41 L 09/23/19 10:40 61 85/49 L 09/23/19 10:26 63 85/48 L 09/23/19 10:20 52 L 68/45 L 09/23/19 10:14 60 88/30 L 09/23/19 10:03 36.6 C 62 09/23/19 07:50 36.4 C L 60 20 96/61 L 09/23/19 06:13 91/54 L Pulse Ox 09/23/19 15:11 99 09/23/19 14:50 09/23/19 14:20 09/23/19 14:00 09/23/19 13:40 09/23/19 13:20 09/23/19 13:00 09/23/19 12:40 09/23/19 12:20 09/23/19 12:00 09/23/19 11:40 09/23/19 11:33 09/23/19 11:28 09/23/19 11:00 09/23/19 10:40 09/23/19 10:26 09/23/19 10:20 09/23/19 10:14 09/23/19 10:03 09/23/19 07:50 97 09/23/19 06:13 PG Care Time/CCT Total # of Minutes Spent Total Time Spent with Patient: Total time spent is greater than 50% in coordination of care (as documented) at patient's floor/unit and/or counseling patient: Coding Level of Care Code 98790 Subseq Hosp Care Lvl 2 Diagnoses AMS (altered mental status) R40.4 Altered mental status type: transient alteration of awareness Hypoglycemia E16.2 Dementia F03.91 Dementia behavioral disturbance: with behavioral disturbance Dementia type: unspecified type Hyperkalemia E87.5 ESRD (end stage renal disease) on dialysis N18.6; Z99.2 Anemia in chronic kidney disease (CKD) N18.9; D63.1 Peripheral arterial disease I73.9 Diabetic ulcer of left heel E11.621; L97.429 Diabetes mellitus type: type 2 Non-pressure ulcer stage: unspecified non-pressure ulcer stage Diabetic ulcer of right heel E11.621; L97.419 Diabetes mellitus type: type 2 Non-pressure ulcer stage: unspecified non-pressure ulcer stage Coronary artery disease I25.10 Diabetes mellitus type 2, insulin dependent E11.9; Z79.4 Hypothyroid E03.9 Hypothyroidism type: unspecified DVT prophylaxis Z29.9 (1) Dementia Dementia behavioral disturbance: with behavioral disturbance Dementia type: unspecified type Qualified Code(s): F03.91 - Unspecified dementia with behavioral disturbance (2) Hypothyroid Hypothyroidism type: unspecified Qualified Code(s): E03.9 - Hypothyroidism, unspecified (3) AMS (altered mental status) Altered mental status type: transient alteration of awareness Qualified Code(s): R40.4 - Transient alteration of awareness (4) Diabetic ulcer of right heel Diabetes mellitus type: type 2 Non-pressure ulcer stage: unspecified non- pressure ulcer stage Qualified Code(s): E11.621 - Type 2 diabetes mellitus with foot ulcer; L97.419 - Non-pressure chronic ulcer of right heel and midfoot with unspecified severity (5) Diabetic ulcer of left heel Diabetes mellitus type: type 2 Non-pressure ulcer stage: unspecified non- pressure ulcer stage Qualified Code(s): E11.621 - Type 2 diabetes mellitus with foot ulcer; L97.429 - Non-pressure chronic ulcer of left heel and midfoot with unspecified severity
[2019-09-23] MEDS: INSULIN GLARGINE SOLOSTAR 100 UNITS/ML 3 ML PEN SC SCH (21:50)
[2019-09-23] MEDS: ATORVASTATIN 40 MG TAB PO SCH (21:50)
[2019-09-24] MEDS: PIPERACILLIN/TAZOBACTAM 4.5 GM in DEXTROSE 5% 100 ML IV SCH (01:51)
[2019-09-24] MEDS: LEVOTHYROXINE SODIUM 100 MCG TABLET PO SCH (06:31)
[2019-09-24] MEDS: ASPIRIN 81 MG ECTAB PO SCH (08:10)
[2019-09-24] MEDS: ASCORBIC ACID 500 MG TAB PO SCH (08:11)
[2019-09-24] MEDS: CALCIUM 600MG + VIT D 400 IU TAB PO SCH (08:11)
[2019-09-24] MEDS: PROSOURCE NO CARB 30 ML/PKT PO SCH ×2 (08:11→20:19)
[2019-09-24] MEDS: GABAPENTIN 600 MG TAB PO SCH ×2 (08:11→20:19)
[2019-09-24] MEDS: DOCUSATE SODIUM 100 MG CAP PO SCH ×2 (08:11→20:20)
[2019-09-24] MEDS: METOPROLOL SUCC 50MG EXT REL TAB PO SCH ×2 (08:11→20:21)
[2019-09-24] MEDS: APIXABAN 2.5 MG TAB PO SCH ×2 (08:11→20:20)
[2019-09-24] MEDS: ESCITALOPRAM OXALATE ORAL SOLN 5 MG/5 ML PO SCH (08:11)
[2019-09-24] MEDS: MULTIVITAMIN TAB PO SCH (08:11)
[2019-09-24] MEDS: CHOLECALCIFEROL 1,000 UNITS 25 MCG TAB PO SCH (08:11)
[2019-09-24] MEDS: BUMETANIDE 1 MG TAB PO SCH ×2 (08:12→20:19)
[2019-09-24] MEDS: ARTIFICIAL TEARS OP SCH (08:13)
[2019-09-24] MEDS: INSULIN ASPART 100 UNITS/ML 3 ML PEN SC SCH ×4 (08:16→20:22)
[2019-09-24] MEDS ORDERED: levoFLOXacin 500 MG TAB PO ONE (11:00)
--- NOTE | 2019-09-24 11:09 | Pharmacy Report ---
Pharmacy Glycemic Short Note 2 - Date of Service September 24, 2019 - Glycemic Short BSG Results (Last 24 hours): 09/23/19 09/23/19 09/23/19 16:22 16:23 16:46 POC Glucose 54 L* 59 L* 79 09/23/19 09/24/19 20:36 07:09 POC Glucose 117 H 87 OUTPATIENT ANTIDIABETIC REGIMEN: * Lantus 25 units SQ BID * Novolog 5 units TID with meals * A1c = 6% (09/22/19) ASSESSMENT: * 84 yo T2DM with chronic Diabetic Ulcers, Neuropathy, Nephropathy/CKD/HD 2x/week (, , ) * Goal is to maintain BSGs <200 mg/dl (ideally <150 mg/dl) to prevent infectious complications * Pt received 0 units of insulin yesterday (decreased from 54 units on 09/21) * BSGs ranged from 54- 117 mg/dL * Fasting BSG remains below goal (last dose of Lantus was 09/21 PM) * I contacted Daniella at [facility] to confirm insulin doses prior to admission. Per Nae, documentation shows that patient was getting Lantus 25 units q12h plus Novolog TID with meals in addition to SS. Fasting BSGs around 100 mg/dL and post prandials in the 200s. * Cause of decreased inpatient insulin needs are unknown. Patient did not eat much on 09/22 (only 20 grams of carbs all day). This may be contributing to decreased needs. I will resume basal insulin at very conservative doses. PLAN FOR INPATIENT GLYCEMIC CONTROL: * Basal insulin - decrease * Lantus 5 units x 1, then SQ BID per scale: 0 units for BSG < 140 5 units for BSG 140-180 10 units for BSG > 180 * Bolus insulin - decrease * NovoLog per scale ACHS or Q6hrs while NPO * Goal Range: Low 120 mg/dL - High 150 mg/dL * Correction Factor: 25 mg/dL/unit * Nutritional / Prandial insulin per carb ratio of 1 unit per 7 grams CHO consumed PLAN FOR DISCHARGE: * A1c = 6% * However, this result is likely somewhat unreliable in ESRD patients d/t interactions between the A1c analyzing technique and high levels of urea in ESRD, reduced RBC life span, iron deficiency anemia, and EPO administration. HbA1c > 7.5% in ESRD patient may overestimate the extent of hyperglycemia in ESRD patients. * 09/23: Uncertain of insulin needs at this point per patient received no insulin over the past 24 hours. May have a better idea on 09/24 once Lantus is resumed. Chronic DM Ulcers: Could consider any of the treatment modalities below to promote wound healing * Zinc: 50 mg elemental zinc (e.g., 220 mg zinc sulfate) PO three times per day until wound healed. * Vitamin C: 500-3000mg/day depending on whether it causes soft stool, then back off * Protein: may consult dietary for protein supplement recommendation. Could consider boost glucose control supplement Thank you.
[2019-09-24] MEDS: INSULIN GLARGINE SOLOSTAR 100 UNITS/ML 3 ML PEN SC SCH ×2 (12:04→20:21)
--- NOTE | 2019-09-24 13:59 | Nephrology Progress Note ---
Date of Service September 24, 2019 Assessment & Plan (1) ESRD (end stage renal disease) on dialysis: TTS schedule. BP and volume status acceptable. Tolerated HD reasonably well yesterday. No complications with treatment. UF 1.4 L with permissive hypotension. Midodrine continued for BP support. Clearance acceptable. TDC remains intact. AVF with good thrill and bruit. Will continue to use AVF as able. Plan next treatment for Wednesday and resume outpatient Rx without changes post discharge. No changes at this time. Subjective No acute events overnight. Lance was resting comfortably in bed this morning. Tolerated HD well yesterday. No dyspnea. No fevers or chills. Review of Systems Review of Systems: Unobtainable due to cognitive status limited but patient denies pain. no fevers or chills. Physical Exam Physical Exam: Direct exam deferred due to COVID pandemic. Lance was comfortable and in no distress. Breathing unlabored. AVF with adequate thrill and bruit per report. Results & Data Vital Signs (Past 12 Hours) Vital Signs Temp Pulse Pulse Resp BP Pulse Ox 09/24/19 12:09 36.7 C 82 20 94/59 L 95 09/24/19 07:49 36.5 C 71 22 99/64 L 96 09/24/19 04:17 37.2 C 72 20 84/50 L 97 PG Care Time/CCT Total # of Minutes Spent Total Time Spent with Patient: Total time spent is greater than 50% in coordination of care (as documented) at patient's floor/unit and/or counseling patient: Coding Level of Care Code 89048 Subseq Hosp Care Lvl 3 Diagnoses ESRD (end stage renal disease) on dialysis N18.6; Z99.2
[2019-09-24] MEDS ORDERED: INSULIN GLARGINE SOLOSTAR 100 UNITS/ML 3 ML PEN SC ONE (14:00)
--- NOTE | 2019-09-24 15:23 | Hospitalist Progress Note ---
Date of Service September 24, 2019 Assessment & Plan (1) AMS (altered mental status): GCS 12 in ER. [facility]. Currently 15 although remains confused as per family discussion this is likely his baseline. Suspect cause from glucose lability (elevated when EMS arrived) and hypotension (although no significantly different from his usual). Unclear diagnosis made of sepsis on admission as patient did not have a WBC, HR 72 and was afebrile. Blood cultures negative @ 48 hours therefore antibiotics switched back to his usual oral chronic suppression with levaquin and keflex. TTE unremarkable, U/A without concern for acute UTI. Ammonia high end normal - unlikely contributory. CXR with no acute process. Head CT with no acute intracranial abnormality. Flu neg (2) Hypoglycemia: Lability of glucose as possible cause of above. Will likely need insulin adjustments on discharge but will defer this until discharge tomorrow. Likely lability due Appreciate pharmacy glycemic control and discussed ongoing regimen with PharmD Danita Lackey (3) Dementia: baseline confusion history of delirium (4) Hyperkalemia: Secondary to ESRD on dialysis. Management by nephrology with dialysis and Kayexalate PRN. (5) ESRD (end stage renal disease) on dialysis: ESRD On hemodialysis Wednesday, , Wednesday. Wednesday dialysis performed here. Appreciate nephrology management of this. (6) Anemia in chronic kidney disease (CKD): Stable. Management by nephrology. (7) Peripheral arterial disease: Not for vascular interventions as per recent vascular outpatient note. Continue Eliquis and atorvastatin (8) Diabetic ulcer of left heel: Chronic ulcers looked after by wound clinic. Currently on Keflex and Levaquin as per prior cultures. Appreciate wound care management of this (9) Diabetic ulcer of right heel: as above (10) Coronary artery disease: - Cont Eliquis, statin and ASA as prescribed - Continue home meds bumex and metoprolol after discussion with Dr Celis (11) Diabetes mellitus type 2, insulin dependent: Appreciate pharmacy glycemic control. Very labile glucose levels suspect due to changes in his diet. Changes in altered mental state likely related to these labile glucose values. HbA1C not accurate in dialysis patients. (12) Hypothyroid: TSH WNL. Continue levothyroxine 100 mcg PO daily (13) DVT prophylaxis: Continue home dose of Eliquis (14) Goals of care, counseling/discussion: Patient to remain full resuscitation while admitted. Goals of care discussion planned with Dr Bah next week as outpatient. Admission and Anticipated Discharge Date Admission Date: September 22, 2019 Planned discharge today however [facility] unable to accept transfer at this time. He is medically stable for discharge. Insulin adjustments on discharge to be made tomorrow pending further information from glucose values. Anticipated date of discharge: 09/25/19 Subjective No acute events overnight. Discussed going back to [facility]iella today and patient is keen to be discharged. No concerns or questions at this time. Continues to not be orientated to time, place or person other than self. Poorly attempts to confabulate. No lethargy, reduced GCS episodes for which he was admitted have occurred while inpatient. Discussed with his in more detail regarding his full code status. Patient continues to lack capacity into any of his medical issues therefore his currently making medical decisions as POA. I expressed my concern that resuscitation at the end of his life would likely just cause pain and would be almost certainly futile given his extensive medical issues. Encouraged further discussions with his PCP. As per discussion with Dr Celis yesterday he has an upcoming goals meeting with Dr Bah in the near future. He will remain for full resuscitation while admitted as per his 's wishes. Given his labile blood pressures and glucose with lack of reversible etiology I also expressed my concern that he is very likely to keep coming back to hospital which given his increased confusion when he is moved may also be something to consider in the future. Review of Systems Review of Systems: Unobtainable due to cognitive status Physical Exam Constitutional: well developed, + obese and + altered mental status (h/o dementia, suspected to be at baseline); + not well nourished and no acute distress Eyes: EOM intact bilaterally (grossly normal) and + pinpoint pupils; sclerae not anicteric ENMT: Ears: no hearing impairment Neck: trachea midline; no tracheal deviation Respiratory: normal respiratory effort; no respiratory distress and no cough Auscultation: + rhonchi (mild throughout); no crackles, no rales and no wheezes Cardiovascular: Rate/Rhythm: regular rate and regular rhythm Heart Sounds: no murmur Vessels: no JVD Extremities: normal capillary refill and + pedal edema (1+ equal b/l); no calf tenderness Gastrointestinal (Abdomen): Inspection/Auscultation: normal bowel sounds Percussion/Palpation: abdomen soft; abdomen nontender, no guarding and abdomen not rigid Skin: Ulcers not inspected. [facility] C/D/I Neurologic: awake; not confused Psychiatric: Orientation: alert and oriented to person (self); + not oriented to place, + not oriented to time and + uncooperative Eye Contact: good eye contact Results & Data Results & Data ([facility]) Vital Signs (Past 12 Hours) Vital Signs Temp Pulse Pulse Resp BP Pulse Ox 09/24/19 15:02 36.7 C 74 16 91/54 L 98 09/24/19 12:09 36.7 C 82 20 94/59 L 95 09/24/19 07:49 36.5 C 71 22 99/64 L 96 09/24/19 04:17 37.2 C 72 20 84/50 L 97 PG Care Time/CCT Total # of Minutes Spent Total Time Spent with Patient: Total time spent is greater than 50% in coordination of care (as documented) at patient's floor/unit and/or counseling patient: Coding Level of Care Code 35615 Subseq Hosp Care Lvl 2 Diagnoses AMS (altered mental status) R40.4 Altered mental status type: transient alteration of awareness Hypoglycemia E16.2 Dementia F03.91 Dementia type: unspecified type Dementia behavioral disturbance: with behavioral disturbance Hyperkalemia E87.5 ESRD (end stage renal disease) on dialysis N18.6; Z99.2 Anemia in chronic kidney disease (CKD) N18.9; D63.1 Peripheral arterial disease I73.9 Diabetic ulcer of left heel E11.621; L97.429 Diabetes mellitus type: type 2 Non-pressure ulcer stage: unspecified non-pressure ulcer stage Diabetic ulcer of right heel E11.621; L97.419 Diabetes mellitus type: type 2 Non-pressure ulcer stage: unspecified non-pressure ulcer stage Coronary artery disease I25.10 Diabetes mellitus type 2, insulin dependent E11.9; Z79.4 Hypothyroid E03.9 Hypothyroidism type: unspecified DVT prophylaxis Z29.9 Goals of care, counseling/discussion Z71.89 (1) AMS (altered mental status) Altered mental status type: transient alteration of awareness Qualified Code(s): R40.4 - Transient alteration of awareness (2) Dementia Dementia type: unspecified type Dementia behavioral disturbance: with behavioral disturbance Qualified Code(s): F03.91 - Unspecified dementia with be havioral disturbance (3) Diabetic ulcer of left heel Diabetes mellitus type: type 2 Non-pressure ulcer stage: unspecified non- pressure ulcer stage Qualified Code(s): E11.621 - Type 2 diabetes mellitus with foot ulcer; L97.429 - Non-pressure chronic ulcer of left heel and midfoot with unspecified severity (4) Diabetic ulcer of right heel Diabetes mellitus type: type 2 Non-pressure ulcer stage: unspecified non- pressure ulcer stage Qualified Code(s): E11.621 - Type 2 diabetes mellitus with foot ulcer; L97.419 - Non-pressure chronic ulcer of right heel and midfoot with unspecified severity (5) Hypothyroid Hypothyroidism type: unspecified Qualified Code(s): E03.9 - Hypothyroidism, unspecified
[2019-09-24] MEDS: ATORVASTATIN 40 MG TAB PO SCH (20:20)
[2019-09-25 06:05] LABS: Hematocrit (blood only) 28.7 % (42-52); Hemoglobin 8.9 g/dL (14.0-18.0); Mean Corpuscular Hemoglobin 32.6 pg (25-34); Mean Corpuscular Volume 105.1 fL (80-100); Mean Platelet Volume 9.7 fL (7.4-10.4); Nucleated RBC # (auto) 0.02 K/uL (0-0); Nucleated RBC % (auto) 0.2 %; Platelet Count 109 K/uL (130-400); RDW Coefficient of Variation 17.4 % (11.5-14.5); RDW Standard Deviation 67.3 fL (36.4-46.3); Red Blood Count 2.73 M/uL (4.7-6.1); White Blood Count 6.83 K/uL (4.8-10.8)
[2019-09-25] MEDS: LEVOTHYROXINE SODIUM 100 MCG TABLET PO SCH (06:09)
[2019-09-25 06:45] LABS: BUN Creatinine Ratio 9.6 (10-20); Creatinine Clr Calc Pharmacy 11.3 ml/min; Est GFR (African American) 9.4; Est GFR (Non-African American) 8.1; Potassium 4.7 mmol/L (3.5-5.1)
[2019-09-25] MEDS: ASPIRIN 81 MG ECTAB PO SCH (09:13)
[2019-09-25] MEDS: DOCUSATE SODIUM 100 MG CAP PO SCH (09:13)
[2019-09-25] MEDS: GABAPENTIN 600 MG TAB PO SCH (09:14)
[2019-09-25] MEDS: CHOLECALCIFEROL 1,000 UNITS 25 MCG TAB PO SCH (09:14)
[2019-09-25] MEDS: ASCORBIC ACID 500 MG TAB PO SCH (09:14)
[2019-09-25] MEDS: PROSOURCE NO CARB 30 ML/PKT PO SCH (09:15)
[2019-09-25] MEDS: MULTIVITAMIN TAB PO SCH (09:15)
[2019-09-25] MEDS: CALCIUM 600MG + VIT D 400 IU TAB PO SCH (09:15)
[2019-09-25] MEDS: APIXABAN 2.5 MG TAB PO SCH (09:15)
[2019-09-25] MEDS: METOPROLOL SUCC 50MG EXT REL TAB PO SCH (09:15)
[2019-09-25] MEDS: ESCITALOPRAM OXALATE ORAL SOLN 5 MG/5 ML PO SCH (09:15)
[2019-09-25] MEDS: INSULIN ASPART 100 UNITS/ML 3 ML PEN SC SCH ×2 (09:16→13:15)
[2019-09-25] MEDS: BUMETANIDE 1 MG TAB PO SCH (09:16)
[2019-09-25] MEDS: INSULIN GLARGINE SOLOSTAR 100 UNITS/ML 3 ML PEN SC SCH (09:16)
[2019-09-25] MEDS: ARTIFICIAL TEARS OP SCH (09:17)
--- NOTE | 2019-09-25 10:26 | Pharmacy Report ---
Pharmacy Glycemic Short Note 2 - Date of Service September 25, 2019 - Glycemic Short BSG Results (Last 24 hours): 09/24/19 09/24/19 09/24/19 11:16 16:23 20:17 Glucose POC Glucose 220 H 181 H 181 H 09/25/19 09/25/19 05:44 07:13 Glucose 129 H POC Glucose 131 H OUTPATIENT ANTIDIABETIC REGIMEN: * Lantus 25 units SQ BID * Novolog 5 units TID with meals * A1c = 6% (09/22/19) ASSESSMENT: 09/24: * Patient received 27 units of insulin yesterday, 10 units basal & 17 units bolus * BSGs yesterday ranging 87-220 mg/dL * Fasting BSG this AM was 131 mg/dL * Not scheduled for HD until tomorrow, SCr 5.89 mg/dL today * Will increase basal insulin slightly given improvement in eating 09/23: * 84 yo T2DM with chronic Diabetic Ulcers, Neuropathy, Nephropathy/CKD/HD 2x/week (, , ) * Goal is to maintain BSGs <200 mg/dl (ideally <150 mg/dl) to prevent infectious complications * Pt received 0 units of insulin yesterday (decreased from 54 units on 09/21) * BSGs ranged from 54- 117 mg/dL * Fasting BSG remains below goal (last dose of Lantus was 09/21 PM) PLAN FOR INPATIENT GLYCEMIC CONTROL: * Basal insulin - increase * Lantus SQ BID per scale: 5 units for BSG < 140 10 units for BSG 140 or above * Bolus insulin - no change * NovoLog per scale ACHS or Q6hrs while NPO * Goal Range: Low 120 mg/dL - High 150 mg/dL * Correction Factor: 25 mg/dL/unit * Nutritional / Prandial insulin per carb ratio of 1 unit per 7 grams CHO consumed PLAN FOR DISCHARGE: * A1c = 6% * However, this result is likely somewhat unreliable in ESRD patients d/t interactions between the A1c analyzing technique and high levels of urea in ESRD, reduced RBC life span, iron deficiency anemia, and EPO administration. HbA1c > 7.5% in ESRD patient may overestimate the extent of hyperglycemia in ESRD patients. * 09/24: Believe patient will require a decrease in outpatient insulin needs. Would consider once daily Lantus administration as an outpatient given renal function and HD on , , Sa. Would consider a 30% reduction in outpatient Lantus dose to 35 units SQ once daily. Continue Novolog 5 units SQ TIDM with accuchecks ACHS. Chronic DM Ulcers: Could consider any of the treatment modalities below to promote wound healing * Zinc: 50 mg elemental zinc (e.g., 220 mg zinc sulfate) PO three times per day until wound healed. * Vitamin C: 500-3000mg/day depending on whether it causes soft stool, then back off * Protein: may consult dietary for protein supplement recommendation. Could consider boost glucose control supplement Thank you.
--- NOTE | 2019-09-25 11:21 | Nephrology Progress Note ---
Date of Service September 25, 2019 Assessment & Plan (1) ESRD (end stage renal disease) on dialysis: TTS schedule. BP and volume status appear to remain acceptable. Discharge anticipated to [facility] today. Lance will resume his prior outpatient Rx at [facility] post discharge. We will continue to provide monitoring and adjust plan of care as needed in the outpatient setting. If Lance remains inpatient, dialysis will be coordinated as inpatient for tomorrow. Midodrine continued for BP support. Femoral TDC remains intact. AVF has worked well in the outpatient setting. If AVF functions well for future treatments, Dr. Acosta will be notified for removal of catheter. If Lance remains inpatient, this could be coordinated as needed. If Lance is discharged, Dr. Acosta is able to schedule as indicated as an outpatient. Medications are appropriate for kidney function. No changes at this time. Subjective No acute events overnight. No fevers or chills. No respiratory concerns. I discussed the patient's status with the bedside nurse, Dr. Acosta, and Dr. Haley this morning. Review of Systems Review of Systems: Unobtainable due to cognitive status Limited due to mental status. Physical Exam Physical Exam: physical exam was deferred due to COVID 19 pandemic Cardiovascular: Extremities: + AV fistula Results & Data Vital Signs (Past 12 Hours) Vital Signs Temp Pulse Pulse Resp BP Pulse Ox 09/25/19 07:00 36.5 C 62 16 108/68 94 09/25/19 03:10 36.5 C 70 19 90/57 L 96 Laboratory Results Laboratory Results - last 24 hr 09/24/19 09/24/19 09/25/19 16:23 20:17 05:44 WBC 6.83 RBC 2.73 L Hgb 8.9 L Hct 28.7 L MCV 105.1 H MCH 32.6 MCHC 31.0 L RDW Std Deviation 67.3 H RDW Coeff of Virginie 17.4 H Plt Count 109 L MPV 9.7 Absolute Nucleated RBC 0.02 H Nucleated RBC % (auto) 0.2 Sodium Potassium Chloride Carbon Dioxide Anion Gap BUN Creatinine Est Cr Clr Drug Dosing Est GFR ( Amer) Est GFR (Non-Af Amer) BUN/Creatinine Ratio Glucose POC Glucose 181 H 181 H Calcium 09/25/19 09/25/19 05:44 07:13 WBC RBC Hgb Hct MCV MCH MCHC RDW Std Deviation RDW Coeff of Virginie Plt Count MPV Absolute Nucleated RBC Nucleated RBC % (auto) Sodium 136 Potassium 4.7 Chloride 100 Carbon Dioxide 27 Anion Gap 9.0 BUN 57 H Creatinine 5.89 H* D Est Cr Clr Drug Dosing 11.3 Est GFR ( Amer) 9.4 Est GFR (Non-Af Amer) 8.1 BUN/Creatinine Ratio 9.6 L Glucose 129 H POC Glucose 131 H Calcium 8.0 L PG Care Time/CCT Total # of Minutes Spent Total Time Spent with Patient: Total time spent is greater than 50% in coordination of care (as documented) at patient's floor/unit and/or counseling patient: Coding Level of Care Code 69337 Subseq Hosp Care Lvl 3 Diagnoses ESRD (end stage renal disease) on dialysis N18.6; Z99.2
--- NOTE | 2019-09-25 12:45 | Discharge Summary ---
Date of Service September 25, 2019 Admission HPI Per Admitting Provider 84 yo M with PMH of CAD, Afib on eliquis, HTN, HLD, CHF, Pacemaker, CKD IV on hemodialysis (//WED), chronic anemia, Alzheimer's dementia, osteoarthritis, GERD, hypothyroidism, DM2 w/ peripheral neuropathy presents from [facility] with concerns of AMS and hypotension. History limited 2/2 pt's cognitive status, no family present at time of my evaluation. AMS started earlier in day around 2PM, occurred after pt had finished dialysis. At baseline, pt is normally A&O and very talkative. When EMS picked pt up, noted to be hypotensive and confused. CXR: No acute process. Head CT: No acute intracranial abnormality. Pelvis XR: Degenerative and postoperative change. No acute process. Pertinent Labs: hgb 10, K 5.4, Cr 3.83, Fra208, LA 2.3, Alk Phos 149, BNP 7110, Albumin 2.6, Flu A/B neg. UA w/o concern for UTI. VBG: pH 7.3, CO2 63 ER Course: IV Cefepime/Vanc, NSS 250+500ml Principal Diagnosis Altered mental status Discharge Exam Constitutional: well developed, + obese and + altered mental status (h/o dementia, suspected to be at baseline); + not well nourished and no acute distress Eyes: EOM intact bilaterally (grossly normal) and + pinpoint pupils; sclerae not anicteric ENMT: Ears: no hearing impairment Neck: trachea midline; no tracheal deviation Respiratory: normal respiratory effort; no respiratory distress and no cough Auscultation: no crackles, no rales and no wheezes Cardiovascular: Rate/Rhythm: regular rate and regular rhythm Heart Sounds: no murmur Vessels: no JVD Extremities: normal capillary refill and + pedal edema (1+ equal b/l); no calf tenderness Gastrointestinal (Abdomen): Inspection/Auscultation: normal bowel sounds Percussion/Palpation: abdomen soft; abdomen nontender, no guarding and abdomen not rigid Skin: Ulcers not inspected. [facility] site C/D/I Neurologic: awake; not confused Psychiatric: Orientation: alert and oriented to person (self); + not oriented to place, + not oriented to time and + uncooperative Eye Contact: good eye contact Discharge Data Allergies Allergy/AdvReac Type Severity Reaction Status Date / Time clindamycin AdvReac Mild Nausea Verified 09/21/19 22:06 Consultations 09/21/19 23:04 ED Decision to Admit Stat 09/22/19 02:28 Consult Case Management - Discharge Planning Routine Consult Nephrology Routine Ordered Studies 09/21/19 21:06 CT head/brain wo con Stat Hospital Course (1) AMS (altered mental status): GCS 12 in ER. Main presentation at group home was really unresponsiveness. Currently 15 although remains confused as per family discussion this is likely his baseline. Suspect cause from glucose lability (elevated when EMS arrived) and hypotension (although no significantly different from his usual). Unclear diagnosis made of sepsis on admission as patient did not have a WBC, HR 72 and was afebrile. Blood cultures negative @ 48 hours therefore antibiotics switched back to his usual oral chronic suppression with levaquin and keflex. TTE unremarkable, U/A without concern for acute UTI. Ammonia high end normal - unlikely contributory. CXR with no acute process. Head CT with no acute intracranial abnormality. Flu neg Family was updated. Patient has returned to his baseline or close to it. Will have patient discharged to a SNF. (2) Hypoglycemia: Lability of glucose as possible cause of above. Will likely need insulin adjustments on discharge but will defer this until discharge tomorrow. Likely lability due Appreciate pharmacy glycemic control and discussed ongoing regimen with PharmD Danita Lackey (3) Dementia: baseline confusion history of delirium (4) Hyperkalemia: Secondary to ESRD on dialysis. Management by nephrology with dialysis and Kayexalate PRN. (5) ESRD (end stage renal disease) on dialysis: ESRD On hemodialysis Wednesday, , Wednesday. Wednesday dialysis performed here. Appreciate nephrology management of this. (6) Anemia in chronic kidney disease (CKD): Stable. Management by nephrology. (7) Peripheral arterial disease: Not for vascular interventions as per recent vascular outpatient note. Continue Eliquis and atorvastatin (8) Diabetic ulcer of left heel: Chronic ulcers looked after by wound clinic. Currently on Keflex and Levaquin as per prior cultures. Appreciate wound care management of this (9) Diabetic ulcer of right heel: as above (10) Coronary artery disease: - Cont Eliquis, statin and ASA as prescribed - Continue home meds bumex and metoprolol after discussion with Dr Celis (11) Diabetes mellitus type 2, insulin dependent: Appreciate pharmacy glycemic control. Very labile glucose levels suspect due to changes in his diet. Changes in altered mental state likely related to these labile glucose values. HbA1C not accurate in dialysis patients. (12) Hypothyroid: TSH WNL. Continue levothyroxine 100 mcg PO daily (13) DVT prophylaxis: Continue home dose of Eliquis (14) Goals of care, counseling/discussion: Patient to remain full resuscitation while admitted. Goals of care discussion planned with Dr Bah next week as outpatient. Total Time Total Time Spent Total Time Spent (In Minutes): 35 Discharge Plan Discharge Items Patient Disposition: Transfer Shelter Fac Reason For Visit: Altered mental state Discharge Diagnosis: Altered mental state Hypoglycemia Activity: Resume your previous activity Non-emergency contact: Primary Care Provider Call non-emergency contact if: you have any medication questions, your symptoms worsen and you have a fever Follow-up/Referrals: Cari Brewer [place] [Primary Care Provider] - Diet: Carb Consistent or DM2 and Low Potassium (2gm) Addtl Attending Provider Instructions: Will get femoral cath removed this week by Dr. Gold. Will go back to [facility] TOMORROW. You were admitted to [facility] from September 21 to2019 due to altered mental state and difficulty to wake up after dialysis that day. On admission there was concern for infection causing his symptoms due to hypotension, immunocompromised state and chronic ulcers on heels. He was initially treated with IV broad spectrum antibiotics however these were discontinued after blood cultures were negative at 48 hours and no new source of infection found. He has had a problem with labile glucose values and required much less insulin during his inpatient stay. However on admission his glucose values were elevated. Unknown exact etiology for altered mental state but suspect most likely combination low blood pressure after dialysis of post prandial fatigue with rapid change of glucose. This is likely to reoccur as discussed with his . To try and help with the low blood pressure after dialysis however recommend using midodrine 1-3 hours prior to dialysis. Given peripheral artery disease with non healing ulcers He received his routine dialysis here on Wednesday and should resume his usual schedule on discharge. I did discuss his resuscitation status with his over the phone. She notes her has always said he would like everything done. However certainly when assessed here he does not have the capacity to make this decision and I am unsure if this would be his decision knowing his multiple co-morbidities. Any attempt at resuscitation would likely be futile or at best temporary before further cardiac arrests. I recommended to his to discuss this further with his primary care physician and understand a family meeting is to take place with Dr Bah in approximately 1 week. I emphasized to his that do not resuscitate is different from withdrawal of care and would just be in the circumstance of a cardiac or respiratory arrest. He remains for full resuscitation as per his 's wishes at present. Pending Studies at Discharge: No Stand-Alone Forms: My [facility] Skilled Items Patient informed of condition?: Yes DNR: No (given patient ongoing decline recommend discussed in family meeting) Discharge Level of Care: Skilled Communicable Disease: No Discharge Prognosis: Stable Lines: None Urinary Catheter: No Medications and DC Order Prescriptions: New midodrine 10 mg tablet 10 mg PO UD Qty: 30 RF: 0 Lantus Solostar U-100 Insulin 100 unit/mL (3 mL) insulin pen 35 units SQ QPM Qty: 15 RF: 0 Continued atorvastatin [Lipitor] 80 mg tablet 80 mg PO HS RF: 0 ascorbic acid (vitamin C) [Vitamin C] 1,000 mg Tablet 1,000 mg PO QAM RF: 0 acetaminophen [Tylenol] 325 mg Tablet 650 mg PO Q4 PRN (Reason: ALL LEVELS OF PAIN/TEMP>100) RF: 0 gabapentin [Neurontin] 600 mg tablet 600 mg PO BID RF: 0 ipratropium-albuterol 0.5 mg-3 mg(2.5 mg base)/3 mL solution for nebulization 3 ml INHALATION Q6 PRN (Reason: COUGH, WHEEZING , DYSPENIA) RF: 0 bumetanide 2 mg tablet 2 mg PO BID RF: 0 famotidine 10 mg Tablet 10 mg PO 3XWK RF: 0 polyethylene glycol 3350 [Miralax] 17 gram Powder In Packet 17 g PO DAILY PRN (Reason: Constipation) RF: 0 metoprolol succinate [Toprol XL] 100 mg tablet extended release 24 hr 100 mg PO BID RF: 0 aspirin [Aspir-81] 81 mg Tablet,Delayed Release (Dr/Ec) 81 mg PO DAILY RF: 0 levothyroxine 100 mcg tablet 100 mcg PO DAILY RF: 0 insulin aspart U-100 [Novolog U-100 Insulin aspart] 100 unit/mL solution 5 unit subcut TIDM RF: 0 cephalexin 500 mg capsule 500 mg PO DAILY RF: 0 nitroglycerin [Nitrostat] 0.4 mg Tablet, Sublingual 0.4 mg sublingual UD PRN (Reason: Chest Pain) RF: 0 docusate sodium [Colace] 100 mg Capsule 100 mg PO BID RF: 0 levofloxacin [Levaquin] 500 mg tablet 500 mg PO Q OTHER DAY RF: 0 oxymetazoline [Afrin Sinus (oxymetazoline)] 0.05 % Mcbrides,Non-Aerosol 2 spray INTRANASAL Q8 PRN (Reason: Nasal Congestion) RF: 0 escitalopram oxalate [Lexapro] 5 mg tablet 7.5 mg PO QAM RF: 0 multivitamin Tablet,Chewable 1 tab PO DAILY RF: 0 Calcium 600 + D(3) 600 mg calcium- 200 unit Capsule 1 cap PO DAILY RF: 0 GenTeal Tears Mild 0.1-0.3 % Drops 1 drp OPHTHALMIC (EYE) DAILY RF: 0 ProSource 10-100 gram-kcal/30 mL Liquid 1 ea PO BID RF: 0 Eliquis 2.5 mg tablet 2.5 mg PO BID RF: 0 acetaminophen [Tylenol Extra Strength] 500 mg Tablet 1,000 mg PO Q8 PRN (Reason: Pain) RF: 0 cholecalciferol (vitamin D3) [Vitamin D3] 25 mcg (1,000 unit) Tablet 25 mcg PO DAILY RF: 0 Discontinued Basaglar KwikPen U-100 Insulin 100 unit/mL (3 mL) insulin pen 25 unit SUBCUT Q12 RF: 0 Discharge Orders: Discharge Order (Routine); Ordered 09/25/19 Ordered By: Dano Haley Admission Data Admit Date/Time: 09/22/19 01:24 Attending Provider: Dano Haley Admit Provider: Issac Correa Primary Care Provider: Cari Brewer [place] Other Providers: Aliza Patel Kevin C. Other Interventions: Discharge Summary Assessment (RN) Last Done: 09/25/19 15:21 DC Date/Time DO NOT enter until pt leaves facility: 09/25/19 16:08 Coding Level of Care Code D/C Day Management >30 mins Diagnoses AMS (altered mental status) R40.4 Altered mental status type: transient alteration of awareness Hypoglycemia E16.2 Dementia F03.91 Dementia behavioral disturbance: with behavioral disturbance Dementia type: unspecified type Hyperkalemia E87.5 ESRD (end stage renal disease) on dialysis N18.6; Z99.2 Anemia in chronic kidney disease (CKD) N18.9; D63.1 Peripheral arterial disease I73.9 Diabetic ulcer of left heel E11.621; L97.429 Diabetes mellitus type: type 2 Non-pressure ulcer stage: unspecified non-pressure ulcer stage Diabetic ulcer of right heel E11.621; L97.419 Diabetes mellitus type: type 2 Non-pressure ulcer stage: unspecified non-pressure ulcer stage Coronary artery disease I25.10 Diabetes mellitus type 2, insulin dependent E11.9; Z79.4 Hypothyroid E03.9 Hypothyroidism type: unspecified DVT prophylaxis Z29.9 Goals of care, counseling/discussion Z71.89 Time Spent (min) 35
--- NOTE | 2019-09-26 02:34 | Billing Data ---
Date of Service September 26, 2019 Coding Level of Care Code 63189 Initial Inpt Care Lvl 3
== END 2019-09-25 16:08 | DRG 638 ==
LOC: ED 21:02 → 2S 09-22 01:24 → SUATTDRO 09-22 01:24 → 2S 09-22 01:49
DX: E03.9 Hypothyroidism, unspecified; E11.649 Type 2 diabetes mellitus with hypoglycemia without coma; E11.22 Type 2 diabetes mellitus with diabetic chronic kidney disease; I48.91 Unspecified atrial fibrillation; Z79.4 Long term (current) use of insulin; Z79.899 Other long term (current) drug therapy; F02.80 Dementia in other diseases classified elsewhere, unspecified severity, without behavioral disturbance, psychotic disturbance, mood disturbance, and anxiety; Z83.3 Family history of diabetes mellitus; M19.90 Unspecified osteoarthritis, unspecified site; Z82.49 Family history of ischemic heart disease and other diseases of the circulatory system; E87.5 Hyperkalemia; I50.9 Heart failure, unspecified; Z79.2 Long term (current) use of antibiotics; R31.0 Gross hematuria; Z99.2 Dependence on renal dialysis; L97.419 Non-pressure chronic ulcer of right heel and midfoot with unspecified severity; I95.3 Hypotension of hemodialysis; G30.9 Alzheimer's disease, unspecified; Z79.01 Long term (current) use of anticoagulants; D63.1 Anemia in chronic kidney disease; Z88.1 Allergy status to other antibiotic agents; E11.42 Type 2 diabetes mellitus with diabetic polyneuropathy; N18.6 End stage renal disease; E11.621 Type 2 diabetes mellitus with foot ulcer; Z79.82 Long term (current) use of aspirin; L97.429 Non-pressure chronic ulcer of left heel and midfoot with unspecified severity; I13.2 Hypertensive heart and chronic kidney disease with heart failure and with stage 5 chronic kidney disease, or end stage renal disease; E11.51 Type 2 diabetes mellitus with diabetic peripheral angiopathy without gangrene; E78.5 Hyperlipidemia, unspecified; Z95.0 Presence of cardiac pacemaker; I25.10 Atherosclerotic heart disease of native coronary artery without angina pectoris; Z87.891 Personal history of nicotine dependence; K21.9 Gastro-esophageal reflux disease without esophagitis

== ENCOUNTER 2019-11-24 23:30 | Observation (INO) ==
[2019-11-25 00:15] LABS: Basophils # (auto) 0.01 K/uL (0-0.2); Basophils % (auto) 0.2 %; Eosinophils # (auto) 0.12 K/uL (0-0.5); Eosinophils % (auto) 2.1 %; Hematocrit (blood only) 37.3 % (42-52); Hemoglobin 11.6 g/dL (14.0-18.0); Immature Granulocytes # (auto) 0.05 K/uL (0.00-0.02); Immature Granulocytes % (auto) 0.9 %; Lymphocytes # (auto) 1.17 K/uL (1.2-3.4); Lymphocytes % (auto) 20.2 %; Mean Corpuscular Hemoglobin 31.8 pg (25-34); Mean Corpuscular Hgb Conc 31.1 g/dL (32-36); Mean Corpuscular Volume 102.2 fL (80-100); Mean Platelet Volume 10.6 fL (7.4-10.4); Monocytes # (auto) 0.56 K/uL (0.11-0.59); Monocytes % (auto) 9.7 %; Neutrophils # (auto) 3.88 K/uL (1.4-6.5); Neutrophils % (auto) 66.9 %; Platelet Count 118 K/uL (130-400); RDW Coefficient of Variation 16.2 % (11.5-14.5); RDW Standard Deviation 60.1 fL (36.4-46.3); Red Blood Count 3.65 M/uL (4.7-6.1); White Blood Count 5.79 K/uL (4.8-10.8)
[2019-11-25] MEDS ORDERED: SODIUM CHLORIDE 0.9% 500 ML IV ONE (00:24)
[2019-11-25 00:26] LABS: INR 1.3 (0.9-1.1); Partial Thromboplastin Ratio 1.4; Prothrombin Time 13.3 Seconds (9.0-12.0)
[2019-11-25 00:56] LABS: Albumin Globulin Ratio 0.7 (0.9-2); Albumin Level 2.5 gm/dl (3.4-5.0); BUN Creatinine Ratio 11.6 (10-20); Bilirubin,Total 0.4 mg/dl (0.2-1); Calcium 8.7 mg/dl (8.5-10.1); Creatinine Clr Calc Pharmacy 7.6 ml/min; Est GFR (African American) 6.7; Est GFR (Non-African American) 5.7; Globulin 3.7 gm/dl (2.5-4.0); Magnesium 2.7 mg/dl (1.8-2.4); Potassium 5.5 mmol/L (3.5-5.1); Total Protein 6.2 gm/dl (6.4-8.2)
[2019-11-25 01:02] LABS: Appearance Urine Cloudy (Clear); Bacteria Urine Automated Negative (Negative); Blood Urine 2+ (Negative); Cast Urine Automated 0 /lpf (0-5); Color Urine Orange; Epithelial Cell Urine Auto 0-5 /lpf (0-5); Glucose Urine UA Trace (Negative); Ketones Urine Trace (Negative); Leukocyte Esterase Urine 2+ (Negative); Nitrite Urine Positive (Negative); Protein Urine Trace (Negative); Specific Gravity Urine 1.023 (1.000-1.030); Urobilinogen Urine Negative (Negative)
[2019-11-25 01:08] LABS: Bilirubin Urine Negative (Negative); Ictotest Urine Negative (Negative)
[2019-11-25 01:25] LABS: RBC Urine Automated >30 /hpf (0-4)
[2019-11-25] MEDS ORDERED: IMIPENEM/CILASTATIN SODIUM 500 MG in DEXTROSE 5% 100 ML IV STA (02:17)
[2019-11-25] MEDS ORDERED: DAPTOMYCIN CONSULT ACTIVE PRN ×2 (02:17→02:31)
[2019-11-25] MEDS ORDERED: IMIPENEM/CILASTATIN CONSULT ACTIVE PRN (02:17)
[2019-11-25] MEDS ORDERED: DAPTOmycin 500 MG VIAL IV STA (02:18)
[2019-11-25] MEDS ORDERED: DAPTOmycin 400 MG in SYRINGE 0 ML IV ONE (02:31)
--- NOTE | 2019-11-25 02:51 | Emergency Department Note ---
Impression & Plan Acute UTI, Altered mental status ED Provider Note NAME: ANSHUL STERN AGE: 84 SEX: M ARRIVES VIA: Ambulance INFORMANT: EMS ED PROVIDER(S): Emerita Nava DO CHIEF COMPLAINT: Altered mental status; positive blood cultures PLAN: [facility] Condition: Fair MEDICAL DECISION MAKING: This is an 84-year-old male patient from [facility] who was sent to the emergency department tonight for an altered mental status and positive blood cultures. Initially, the patient was thought to be septic. He was somewhat hypotensive and was bolused with normal saline solution. His urine was infected. He was empirically treated with daptomycin and Primaxin. Information was received from [facility] that his mental status had changed at dialysis and they had sent laboratory studies and blood cultures which had returned with gram-positive cocci is a preliminary finding he will need empiric treatment for this. This is passed along to the admitting team. The patient does suffer from dementia but seems at his mental status seems be worse than usual. This could be secondary to the urinary tract infection. Triage Nursing notes reviewed and agree them. Additional history obtained from staff from [facility] and EMS Prior medical records reviewed Vital Signs: reviewed and remarkable for hypotension Differential diagnosis: Sepsis, altered mental status, septic shock, bacteremia, UTI, pneumonia, wound infections ER treatment provided: IV normal saline bolus-500 mL IV daptomycin IV Primaxin Diagnostics interpreted by me: ECG: Ventricular paced rhythm at 87. No obvious ischemia or ectopy unchanged from previous EKGs. Cardiac Monitoring: Ventricular paced rhythm at 80 Laboratory studies: See below Imaging studies: No obvious pulmonary infiltrates or consolidations as per my interpretation HPI: 84/M arrives for evaluation of altered mental status. The patient suffers from dementia. The patient has wounds about his lower extremities and this was thought to be possibly a source of infection. The patient comes from [facility]. Apparently earlier today at dialysis, the patient was noted to have an altered mental status. At that time, laboratory studies were drawn and sent to the lab including blood cultures. The staff at [facility] were notified tonight that the patient has preliminary positive blood cultures for gram- positive cocci. ROS: See above HPI for pertinent positives & negatives. A total of 10 systems reviewed and were otherwise negative. PAST MEDICAL HISTORY:See Below PAST SURGICAL HISTORY:See Below FAMILY HISTORY:See Below SOCIAL HISTORY:See Below HOME MEDICATIONS:See Below ALLERGIES:See Below VITALS:See Below PHYSICAL EXAMINATION: General: The patient suffers from dementia but was able to answer some questions appropriately. HEENT: Head - normocephalic and atraumatic. Pupils are equal, round, and reactive to light. Extraocular eye muscles are intact, and sclera are anicteri c. Nose -dry nasal mucosa without discharge. Mouth -extremely dry buccal mucosa. Oropharynx is nonerythematous and there is no tonsillar exudate or edema noted. Neck: Supple; no JVD, nuchal rigidity, cervical lymphadenopathy. Heart: Regular rate and rhythm. There is a normal S1 and S2 with no murmurs, clicks, or gallops appreciated. Lungs: Clear to auscultation bilaterally with no wheezes, rales, or rhonchi. Abdomen: Soft, completely nontender but moderately distended with hypoactive bowel sounds. There are no palpable pulsatile masses or hepatosplenomegaly. There is no guarding, rigidity, or rebound noted. Extremities: The patient has wraps on his lower extremities. There is a dialys is catheter in his right mid thigh. There is a fistula in his left upper extremity. There is significant bruising to both upper extremities. Skin: Extremely dry with poor turgor ED COURSE: Times/Reassessments: [id number]: The patient was evaluated in room C9. A complete septic protocol was performed. An order was placed for continuous cardiac monitoring. The patient was in a normal sinus rhythm at a rate of 79. A twelve-lead EKG was obtained. Urine specimen was obtained appear to be infected. He was bolused with normal saline solution as he was thought to be septic. Blood cultures were obtained. He was treated empirically with Primaxin and daptomycin. Nursing staff were able to obtain additional information from the staff of [facility]. Apparently blood cultures from earlier today came back with a preliminary result of gram-positive cocci. This information was relayed to the admitting team. Emerita Nava DO Past Med/Surg History Medical History Actinic keratitis ARMS - SCALY; LEGS DEVELOPED OPEN WOUNDS STILL HAS SOME OPEN AREAS ON LEGS Age-related cognitive decline Alzheimer's dementia Anemia in chronic kidney disease (CKD) Broken shoulder left shoulder feb 2019 Chronic kidney disease, stage IV (severe) [facility] ([place]) Compression fracture of lumbar vertebra Coronary artery disease S/P CABG X 4 (~2002) Diabetes IDDM Dry eye syndrome of bilateral lacrimal glands GERD (gastroesophageal reflux disease) CONTROLLED H/O prostate cancer brachytherapy treatment. Hemodialysis patient FISTULA LEFT ARM. receiving diaylsis Wednesday, & Wednesday @ [facility] History of kidney stones History of left bundle branch block (LBBB) HTN (hypertension) Hypercholesteremia Hypothyroid Ischemic cardiomyopathy s/p insertion of pacer/icd 2013. Stable. EF 65-70% on 09/2019 echo. Lipoprotein deficiency Obesity Permanent atrial fibrillation Asymptomatic per cardio 10/24/18. Rate controlled on BB, anticoagulated with Eliquis. Secondary hyperparathyroidism Sleep apnea NO LONGER USES CPAP Spinal stenosis Venous stasis Surgical History H/O four vessel coronary artery bypass graft CABG X 4 (~2002) H/O total knee replacement RIGHT Hematoma LEFT ARM FISTULA History of brachytherapy History of cardioversion unsuccessful History of colonoscopy History of surgical removal of pilonidal cyst Hx of hemorrhoidectomy Presence of implantable cardioverter-defibrillator (ICD) PPM/ICD IMPLANTED 2013; [employer] LAST PACER CHECK S/P arteriovenous (AV) fistula creation LUE S/P dialysis catheter insertion Family History Sister Kidney stones Son Kidney stones Mother Diabetes Hypertension Heart disease Aunt Colon cancer Denies family history of Ovarian cancer Prostate cancer Myocardial infarction Breast cancer Social History Preferred Language: Beninese Communication Ability: Impaired Visual Impairment: Limited Hearing Ability: Normal Applications Support Lead Required: No Beliefs That Will Affect Care: None marital status: Current Living Situation: Care Home [facility] current occupational status: retired Feels Safe at Home: Yes Smoking Status: Unknown if ever smoked Hx Alcohol Use: No Hx Substance Use: No (unknown) Allergies Allergies Allergy/AdvReac Type Severity Reaction Status Date / Time clindamycin AdvReac Mild Nausea Verified 11/25/19 00:09 Home Meds Home Medications Medication Instructions Recorded Confirmed Calcium 600 + D(3) 1 cap PO QAM 09/21/19 11/25/19 acetaminophen [Tylenol Extra 1,000 mg PO Q8 PRN 09/21/19 11/25/19 Strength] acetaminophen [Tylenol] 650 mg PO Q4 PRN 09/21/19 11/25/19 ascorbic acid (vitamin C) [Vitamin 1,000 mg PO QAM 09/21/19 11/25/19 C] atorvastatin [Lipitor] 80 mg PO HS 09/21/19 11/25/19 bumetanide 2 mg PO BID 09/21/19 11/25/19 cholecalciferol (vitamin D3) 25 mcg PO QAM 09/21/19 11/25/19 [Vitamin D3] docusate sodium [Colace] 100 mg PO DAILY 09/21/19 11/25/19 escitalopram oxalate [Lexapro] 7.5 mg PO QAM 09/21/19 11/25/19 famotidine 10 mg PO 4XWK 09/21/19 11/25/19 insulin aspart U-100 [Novolog 5 unit SUBCUT TIDM 09/21/19 11/25/19 U-100 Insulin aspart] ipratropium-albuterol 3 ml INHALATION Q6 PRN 09/21/19 11/25/19 levothyroxine 100 mcg PO DAILY@0700 09/21/19 11/25/19 nitroglycerin [Nitrostat] 0.4 mg SUBLINGUAL UD PRN 09/21/19 11/25/19 oxymetazoline [Afrin Sinus 2 spray INTRANASAL Q8 PRN 09/21/19 11/25/19 (oxymetazoline)] polyethylene glycol 3350 [Miralax] 17 g PO DAILY PRN 09/21/19 11/25/19 Basaglar KwikPen U-100 Insulin 25 unit SUBCUT Q12 10/04/19 11/25/19 apixaban [Eliquis] 2.5 mg PO BID 11/16/19 11/25/19 cephalexin 500 mg PO DAILY 11/16/19 11/25/19 epoetin beta, methoxy peg [Mircera] 100 mcg IV UD 11/16/19 11/25/19 gabapentin 600 mg PO BID 11/16/19 11/25/19 iron sucrose 50 mg IV WK 11/16/19 11/25/19 bisacodyl [Dulcolax (bisacodyl)] 10 mg AK DIRECTED PRN 11/25/19 11/25/19 hydrocodone-acetaminophen [[place]] 1 tab PO Q6H PRN 11/25/19 11/25/19 insulin aspart U-100 5 unit SUBCUT 3XWK 11/25/19 11/25/19 ketoconazole 1 applic TOPICAL DAILY 11/25/19 11/25/19 metoprolol succinate 50 mg PO 3XWK 11/25/19 11/25/19 pediatric multivitamin 1 tab PO DAILY 11/25/19 11/25/19 sodium polystyrene sulfonate 120 ml PO DAILY 11/25/19 11/25/19 Results & Data (ED) Vital Signs Vital Signs - 24 hr 11/24/19 23:40 11/25/19 00:05 11/25/19 00:17 Temperature 37.7 C H Temperature Source Rectal Pulse Rate 85 77 Respiratory Rate 22 24 Respiratory Effort / Characteristics Non-Labored Spontaneous Respiratory Depth Normal Blood Pressure 90/58 L 98/56 L Blood Pressure Mean 68 73 Pulse Oximetry 98 98 100 Oxygen Delivery Method Room Air Room Air Sepsis Recent Fever Within 48 Hours No Sepsis New/Unexplained Change in Mental Status Yes Sepsis Action Taken by Nursing No Action Required 11/25/19 00:30 11/25/19 01:00 11/25/19 01:31 Temperature Temperature Source Pulse Rate 82 80 72 Respiratory Rate 22 18 18 Respiratory Effort / Characteristics Respiratory Depth Blood Pressure 91/62 L 93/53 L 100/50 L Blood Pressure Mean 82 67 57 Pulse Oximetry 97 96 99 Oxygen Delivery Method Sepsis Recent Fever Within 48 Hours Sepsis New/Unexplained Change in Mental Status Sepsis Action Taken by Nursing 11/25/19 02:00 11/25/19 02:30 11/25/19 03:00 Temperature Temperature Source Pulse Rate 75 79 105 H Respiratory Rate 22 18 20 Respiratory Effort / Characteristics Respiratory Depth Blood Pressure 96/59 L 107/49 L 92/50 L Blood Pressure Mean 72 68 61 Pulse Oximetry 97 97 97 Oxygen Delivery Method Sepsis Recent Fever Within 48 Hours Sepsis New/Unexplained Change in Mental Status Sepsis Action Taken by Nursing Laboratory Data Result diagrams: 11/25/19 00:00 11/25/19 00:00 Lab Results 11/24/19 11/25/19 11/25/19 Range/Units 23:54 00:00 00:00 WBC 5.79 (4.8-10.8) K/uL RBC 3.65 L (4.7-6.1) M/uL Hgb 11.6 L (14.0-18.0) g/dL Hct 37.3 L (42-52) % MCV 102.2 H (80-100) fL MCH 31.8 (25-34) pg MCHC 31.1 L (32-36) g/dL RDW Std Deviation 60.1 H (36.4-46.3) fL RDW Coeff of Virginie 16.2 H (11.5-14.5) % Plt Count 118 L (130-400) K/uL MPV 10.6 H (7.4-10.4) fL Immature Gran % (Auto) 0.9 % Neut % (Auto) 66.9 % Lymph % (Auto) 20.2 % [place] % (Auto) 9.7 % Eos % (Auto) 2.1 % Baso % (Auto) 0.2 % Immature Gran # (Auto) 0.05 H (0.00-0.02) K/uL Neut # (Auto) 3.88 (1.4-6.5) K/uL Lymph # (Auto) 1.17 L (1.2-3.4) K/uL Grainger # (Auto) 0.56 (0.11-0.59) K/uL Eos # (Auto) 0.12 (0-0.5) K/uL Baso # (Auto) 0.01 (0-0.2) K/uL PT 13.3 H (9.0-12.0) Seconds INR 1.3 H (0.9-1.1) APTT 38.0 H (21.0-31.0) Seconds PTT Ratio 1.4 Sodium (136-145) mmol/L Potassium (3.5-5.1) mmol/L Chloride (98-107) mmol/L Carbon Dioxide (21-32) mmol/L Anion Gap (3-11) BUN (7-18) mg/dl Creatinine (0.6-1.4) mg/dl Est Cr Clr Drug Dosing ml/min Est GFR ( Amer) Est GFR (Non-Af Amer) BUN/Creatinine Ratio (10-20) Glucose (70-99) mg/dl POC Glucose 201 H (70-99) mg/dl Lactate (0.4-2.0) mmol/L Calcium (8.5-10.1) mg/dl Magnesium (1.8-2.4) mg/dl Total Bilirubin (0.2-1) mg/dl AST (15-37) U/L ALT (12-78) U/L Alkaline Phosphatase (45-117) U/L Total Protein (6.4-8.2) gm/dl Albumin (3.4-5.0) gm/dl Globulin (2.5-4.0) gm/dl Albumin/Globulin Ratio (0.9-2) Urine Color Urine Appearance (Clear) Urine pH (4.5-7.5) Ur Specific [place] (1.000-1.030) Urine Protein (Negative) Urine Glucose (UA) (Negative) Urine Ketones (Negative) Urine Blood (Negative) Urine Nitrite (Negative) Urine Bilirubin (Negative) Urine Urobilinogen (Negative) Ur Leukocyte Esterase (Negative) Urine WBC (Auto) (0-5) /hpf Urine RBC (Auto) (0-4) /hpf U Hyaline Cast (Auto) (0-5) /lpf U Epithel Cells (Auto) (0-5) /lpf Urine Bacteria (Auto) (Negative) Urine Yeast 11/25/19 11/25/19 11/25/19 Range/Units 00:00 00:30 00:50 WBC (4.8-10.8) K/uL RBC (4.7-6.1) M/uL Hgb (14.0-18.0) g/dL Hct (42-52) % MCV (80-100) fL MCH (25-34) pg MCHC (32-36) g/dL RDW Std Deviation (36.4-46.3) fL RDW Coeff of Virginie (11.5-14.5) % Plt Count (130-400) K/uL MPV (7.4-10.4) fL Immature Gran % (Auto) % Neut % (Auto) % Lymph % (Auto) % Grainger % (Auto) % Eos % (Auto) % Baso % (Auto) % Immature Gran # (Auto) (0.00-0.02) K/uL Neut # (Auto) (1.4-6.5) K/uL Lymph # (Auto) (1.2-3.4) K/uL Grainger # (Auto) (0.11-0.59) K/uL Eos # (Auto) (0-0.5) K/uL Baso # (Auto) (0-0.2) K/uL PT (9.0-12.0) Seconds INR (0.9-1.1) APTT (21.0-31.0) Seconds PTT Ratio Sodium 136 (136-145) mmol/L Potassium 5.5 H (3.5-5.1) mmol/L Chloride 102 (98-107) mmol/L Carbon Dioxide 25 (21-32) mmol/L Anion Gap 10.0 (3-11) BUN 91 H (7-18) mg/dl Creatinine 7.85 H* (0.6-1.4) mg/dl Est Cr Clr Drug Dosing 7.6 ml/min Est GFR ( Amer) 6.7 Est GFR (Non-Af Amer) 5.7 BUN/Creatinine Ratio 11.6 (10-20) Glucose 157 H (70-99) mg/dl POC Glucose (70-99) mg/dl Lactate 1.5 (0.4-2.0) mmol/L Calcium 8.7 (8.5-10.1) mg/dl Magnesium 2.7 H (1.8-2.4) mg/dl Total Bilirubin 0.4 (0.2-1) mg/dl AST 60 H (15-37) U/L ALT 32 (12-78) U/L Alkaline Phosphatase 137 H (45-117) U/L Total Protein 6.2 L (6.4-8.2) gm/dl Albumin 2.5 L (3.4-5.0) gm/dl Globulin 3.7 (2.5-4.0) gm/dl Albumin/Globulin Ratio 0.7 L (0.9-2) Urine Color [place] Urine Appearance Cloudy A (Clear) Urine pH 5.0 (4.5-7.5) Ur Specific [place] 1.023 (1.000-1.030) Urine Protein Trace H (Negative) Urine Glucose (UA) Trace H (Negative) Urine Ketones Trace H (Negative) Urine Blood 2+ H (Negative) Urine Nitrite Positive A (Negative) Urine Bilirubin Negative (Negative) Urine Urobilinogen Negative (Negative) Ur Leukocyte Esterase 2+ H (Negative) Urine WBC (Auto) 1-5 (0-5) /hpf Urine RBC (Auto) >30 H (0-4) /hpf U Hyaline Cast (Auto) 0 (0-5) /lpf U Epithel Cells (Auto) 0-5 (0-5) /lpf Urine Bacteria (Auto) Negative (Negative) Urine Yeast Not Reportable Administered Medications Apixaban (Eliquis) 2.5 mg PO BID [facility] Stop: 12/25/19 08:59 Last Admin: 11/25/19 20:42 Dose: 2.5 mg Documented by: [id number] Admin: 11/25/19 09:43 Dose: 2.5 mg Documented by: [id number] Atorvastatin Calcium (Lipitor) 80 mg PO HS DANA Stop: 12/25/19 20:59 Last Admin: 11/25/19 20:42 Dose: 80 mg Documented by: [id number] Bumetanide (Bumex) 2 mg PO BID17 DANA Stop: 12/25/19 08:59 Last Admin: 11/25/19 17:13 Dose: 2 mg Documented by: [id number] Admin: 11/25/19 09:43 Dose: 2 mg Documented by: [id number] Docusate Sodium (Colace) 100 mg PO DAILY [facility] Stop: 12/25/19 08:59 Last Admin: 11/25/19 09:43 Dose: 100 mg Documented by: [id number] Escitalopram Oxalate (Lexapro Soln) 7.5 mg PO DAILY [facility] Stop: 12/25/19 08:59 Last Admin: 11/25/19 09:43 Dose: 7.5 mg Documented by: [id number] Gabapentin (Neurontin) 600 mg PO BID [facility] Stop: 12/25/19 08:59 Last Admin: 11/25/19 20:42 Dose: 600 mg Documented by: [id number] Admin: 11/25/19 09:43 Dose: 600 mg Documented by: [id number] Ceftriaxone Sodium 2,000 mg/ (Dextrose) 70 mls @ 100 mls/hr IV Q24H [facility]; Protocol Stop: 11/27/19 07:59 Last Infusion: 11/25/19 10:43 Dose: 0 mls/hr Documented by: [id number] Admin: 11/25/19 09:43 Dose: 100 mls/hr Documented by: [id number] Insulin Aspart (Novolog Flexpen) 0 units SC ACHS [facility] Stop: 12/25/19 07:29 Last Admin: 11/25/19 20:42 Dose: Not Given Documented by: [id number] Cosigned by: [id number] Admin: 11/25/19 16:59 Dose: Not Given Documented by: [id number] Cosigned by: [id number] Admin: 11/25/19 14:09 Dose: Not Given Documented by: [id number] Cosigned by: [id number] Admin: 11/25/19 10:42 Dose: Not Given Documented by: [id number] Cosigned by: [id number] Insulin Glargine (Lantus Solostar Pen) 18 units SQ Q12 [facility] Stop: 12/25/19 08:59 Last Admin: 11/25/19 20:41 Dose: 18 units Documented by: [id number] Cosigned by: [id number] Admin: 11/25/19 09:45 Dose: 18 units Documented by: [id number] Cosigned by: [id number] Ketoconazole (Nizoral 2%) 1 appln EXT DAILY DANA Stop: 12/05/19 08:59 Last Admin: 11/25/19 09:46 Dose: 1 appln Documented by: [id number] Levothyroxine Sodium (Synthroid) 100 mcg PO DAILY@0700 [facility] Stop: 12/25/19 06:59 Last Admin: 11/25/19 09:44 Dose: 100 mcg Documented by: [id number] Discontinued Medications Sodium Chloride (Nss) 500 mls @ 999 mls/hr IV .Q31M ONE Stop: 11/25/19 00:54 Last Infusion: 11/25/19 01:13 Dose: 0 mls/hr Documented by: [id number] Admin: 11/25/19 00:37 Dose: 999 mls/hr Documented by: [id number] Imipenem/Cilastatin Sodium 500 (mg/ Dextrose) 110 mls @ 100 mls/hr IV NOW STA Stop: 11/25/19 03:22 Last Infusion: 11/25/19 04:16 Dose: 0 mls/hr Documented by: [id number] Admin: 11/25/19 02:43 Dose: 100 mls/hr Documented by: [id number] Daptomycin 400 mg/ Syringe 8 mls @ 4 mls/min IV NOW ONE; Protocol Stop: 11/25/19 02:32 Last Admin: 11/25/19 03:45 Dose: 4 mls/min Documented by: [id number] Vancomycin HCl 2,000 mg/ (Sodium Chloride) 540 mls @ 200 mls/hr IV ONE ONE; Protocol Stop: 11/25/19 18:41 Last Infusion: 11/25/19 19:52 Dose: 0 mls/hr Documented by: [id number] Admin: 11/25/19 17:10 Dose: 200 mls/hr Documented by: [id number] Sodium Polystyrene Sulfonate (Kayexalate) 30 gm PO DAILY DANA Stop: 12/25/19 08:59 Last Admin: 11/25/19 09:45 Dose: 30 gm Documented by: [id number] Discharge Plan Visit Data *Final* Discharge Date/Time: 11/25/19 06:10 Chief Complaint: Altered Mental Status Stated Complaint: Mental status changes, septic ED Provider: Emerita Nava Discharge Problem: Acute UTI, Altered mental status Patient Disposition: Admitted As Inpatient Discharge Instructions Interventions: ED Discharge Assessment Last Done: 11/25/19 06:10 Discharge Problem: Altered mental status Qualifiers: Altered mental status type: unspecified Qualified Code(s): R41.82 - Altered mental status, unspecified
--- NOTE | 2019-11-25 03:58 | History & Physical Report ---
Date of Service November 25, 2019 Assessment & Plan (1) Bacteremia: Bacteremia with GPC reported from outside lab. Patient with elevated temperature, hypotensive on arrival, concern for developing sepsis -Admit to medical floor with telemetry -Follow cultures, concern for infection of HD catheter as source of bacteremia -Vancomycin for empiric coverage -MRSA nasal swab -Ceftriaxone -(pt with +UA, could be source as well) Present on Admission?: Yes (2) End-stage renal disease (ESRD): On HD through Perm cath right thigh. Mildly hyperkalemic at 5.5 now otherwise no indication for urgent HD. Last treatment today -Nephrology consultation -Repeat labs in AM -Renal dosing where needed Present on Admission?: Yes (3) Confusion: Most likely metabolic encephalopathy in setting of acute infection -Treatment of underlying medical conditions as appropriate -Frequent orientation for delirium prevention Present on Admission?: Yes (4) Nonischemic cardiomyopathy: Patient appears euvolemic at this time -Hold Metoprolol in setting of borderline hypotension -Continue Atorvastatin, Bumex Present on Admission?: Yes (5) Hyperkalemia: Repeat labs in AM, medical management if elevated -ESRD diet Present on Admission?: Yes (6) Hypothyroid: Chronic -Continue Synthroid Present on Admission?: Yes (7) GERD (gastroesophageal reflux disease): Chronic. -Continue Famotidine Present on Admission?: Yes (8) Coronary artery disease: Chronic. No evidence of active ischemia -Holding BB -Continue Atorvastatin Present on Admission?: Yes (9) Hypertension: Hypotension on arrival -Monitor, holding medications Present on Admission?: Yes (10) Hypercholesterolemia: Chronic -Continue Statin Present on Admission?: Yes (11) Atrial fibrillation: Rate controlled, anticoagulated on Eliquis -Holding BB as above -Continue Eliquis Present on Admission?: Yes (12) Diabetes mellitus type 2, insulin dependent: -Decrease Lantus to 18u BID -ISS -Continue to monitor F/E/N - [place]. Monitor electrolytes. Renal diet Ppx - Apixaban Code - DNR/DNI Dispo - Admit to med/tele Present on Admission?: Yes Admission and Anticipated Discharge Date Admission Date: 11/25/19 Anticipated date of discharge: 11/27/19 History of Present Illness Chief Complaint: lethargy Primary Care Provider: Daniella Alcala at [place] Lance Holder is an 84yo C male with history of ESRD on HD, Dementia, CHF presenting from [facility] with reports of lethargy. Patient unable to provide details of history due to underlying dementia and AMS - details obtained through review of chart and discussion with ER staff. Mr. Holder had HD performed today and was reportedly acting strange and lethargic and had a syncopal episode. Labs were sent from dialysis which suggested sepsis, blood cultures positive for GPC. VS from [facility] records with T=99.1, IS=884, BP=90/50. ER Course: Daptomycin, Imipenem, NSS x 500mL Allergies Allergy/AdvReac Type Severity Reaction Status Date / Time clindamycin AdvReac Mild Nausea Verified 11/25/19 00:09 Home Medications Home Medications Medication Instructions Recorded Confirmed Type Calcium 600 + D(3) 1 cap PO QAM 09/21/19 11/25/19 History acetaminophen [Tylenol Extra 1,000 mg PO Q8 PRN 09/21/19 11/25/19 History Strength] acetaminophen [Tylenol] 650 mg PO Q4 PRN 09/21/19 11/25/19 History ascorbic acid (vitamin C) [Vitamin 1,000 mg PO QAM 09/21/19 11/25/19 History C] atorvastatin [Lipitor] 80 mg PO HS 09/21/19 11/25/19 History bumetanide 2 mg PO BID 09/21/19 11/25/19 History cholecalciferol (vitamin D3) 25 mcg PO QAM 09/21/19 11/25/19 History [Vitamin D3] docusate sodium [Colace] 100 mg PO DAILY 09/21/19 11/25/19 History escitalopram oxalate [Lexapro] 7.5 mg PO QAM 09/21/19 11/25/19 History famotidine 10 mg PO 4XWK 09/21/19 11/25/19 History insulin aspart U-100 [Novolog 5 unit SUBCUT TIDM 09/21/19 11/25/19 History U-100 Insulin aspart] ipratropium-albuterol 3 ml INHALATION Q6 PRN 09/21/19 11/25/19 History levothyroxine 100 mcg PO DAILY@0700 09/21/19 11/25/19 History nitroglycerin [Nitrostat] 0.4 mg SUBLINGUAL UD PRN 09/21/19 11/25/19 History oxymetazoline [Afrin Sinus 2 spray INTRANASAL Q8 PRN 09/21/19 11/25/19 History (oxymetazoline)] polyethylene glycol 3350 [Miralax] 17 g PO DAILY PRN 09/21/19 11/25/19 History Basaglar KwikPen U-100 Insulin 25 unit SUBCUT Q12 10/04/19 11/25/19 History apixaban [Eliquis] 2.5 mg PO BID 11/16/19 11/25/19 History cephalexin 500 mg PO DAILY 11/16/19 11/25/19 History epoetin beta, methoxy peg [Mircera] 100 mcg IV UD 11/16/19 11/25/19 History gabapentin 600 mg PO BID 11/16/19 11/25/19 History iron sucrose 50 mg IV WK 11/16/19 11/25/19 History bisacodyl [Dulcolax (bisacodyl)] 10 mg GA DIRECTED PRN 11/25/19 11/25/19 History hydrocodone-acetaminophen [[place]] 1 tab PO Q6H PRN 11/25/19 11/25/19 History insulin aspart U-100 5 unit SUBCUT 3XWK 11/25/19 11/25/19 History ketoconazole 1 applic TOPICAL DAILY 11/25/19 11/25/19 History metoprolol succinate 50 mg PO 3XWK 11/25/19 11/25/19 History pediatric multivitamin 1 tab PO DAILY 11/25/19 11/25/19 History sodium polystyrene sulfonate 120 ml PO DAILY 11/25/19 11/25/19 History Past Med/Surg History Social History Preferred Language: Uz[place] Communication Ability: Impaired Visual Impairment: Limited Hearing Ability: Normal Nut Sorter Required: No Beliefs That Will Affect Care: None marital status: Current Living Situation: Half-Way Current Living Situation Comment: UNABLE TO ASSESS AT THIS TIME current occupational status: retired Feels Safe at Home: Yes Smoking Status: Unknown if ever smoked Hx Alcohol Use: No Hx Substance Use: No Review of Systems Review of Systems: Unobtainable due to cognitive status Physical Exam Physical Exam: General: patient somnolent, arousable, answers some questions, oriented to self only, follows commands Skin: warm, dry, multiple areas of dry skin, flaking, skin tears on forearms HEENT: NC/AT, pupils small, reactive bilaterally,anicteric sclera, conjunctiva without injection, external ear normal to inspection and nontender, nares patent, moist mucus membranes, dentition intact, no oropharyngeal lesions, neck supple, trachea midline, no LAD, no thyromegaly, no JVD Heart: +S1/S2, regular, no m/r/g Lungs: equal air entry bilaterally, no rales/rhonchi/wheezes Abd: +BS, soft, NT/ND, no masses/organomegaly/ascites Ext: warm, 2+ pulses in UE/LE bilaterally, no clubbing/cyanosis or edema, HD catheter in place right anterior thigh Neuro:somnolent, arousable, oriented x 1, moving all extremities Results & Data Results & Data ([facility]) Vital Signs (Past 12 Hours) Vital Signs Temp Pulse Resp BP Pulse Ox 11/25/19 02:30 79 18 107/49 L 97 11/25/19 02:00 75 22 96/59 L 97 11/25/19 01:31 72 18 100/50 L 99 11/25/19 01:00 80 18 93/53 L 96 11/25/19 00:30 82 22 91/62 L 97 11/25/19 00:17 77 24 98/56 L 100 11/25/19 00:05 98 11/24/19 23:40 37.7 C H 85 22 90/58 L 98 Laboratory Results Lab Results 11/24/19 11/25/19 11/25/19 Range/Units 23:54 00:00 00:00 WBC 5.79 (4.8-10.8) K/uL RBC 3.65 L (4.7-6.1) M/uL Hgb 11.6 L (14.0-18.0) g/dL Hct 37.3 L (42-52) % MCV 102.2 H (80-100) fL MCH 31.8 (25-34) pg MCHC 31.1 L (32-36) g/dL RDW Std Deviation 60.1 H (36.4-46.3) fL RDW Coeff of Virginie 16.2 H (11.5-14.5) % Plt Count 118 L (130-400) K/uL MPV 10.6 H (7.4-10.4) fL Immature Gran % (Auto) 0.9 % Neut % (Auto) 66.9 % Lymph % (Auto) 20.2 % [place] % (Auto) 9.7 % Eos % (Auto) 2.1 % Baso % (Auto) 0.2 % Immature Gran # (Auto) 0.05 H (0.00-0.02) K/uL Neut # (Auto) 3.88 (1.4-6.5) K/uL Lymph # (Auto) 1.17 L (1.2-3.4) K/uL [place] # (Auto) 0.56 (0.11-0.59) K/uL Eos # (Auto) 0.12 (0-0.5) K/uL Baso # (Auto) 0.01 (0-0.2) K/uL PT 13.3 H (9.0-12.0) Seconds INR 1.3 H (0.9-1.1) APTT 38.0 H (21.0-31.0) Seconds PTT Ratio 1.4 Sodium (136-145) mmol/L Potassium (3.5-5.1) mmol/L Chloride (98-107) mmol/L Carbon Dioxide (21-32) mmol/L Anion Gap (3-11) BUN (7-18) mg/dl Creatinine (0.6-1.4) mg/dl Est Cr Clr Drug Dosing ml/min Est GFR ( Amer) Est GFR (Non-Af Amer) BUN/Creatinine Ratio (10-20) Glucose (70-99) mg/dl POC Glucose 201 H (70-99) mg/dl Lactate (0.4-2.0) mmol/L Calcium (8.5-10.1) mg/dl Magnesium (1.8-2.4) mg/dl Total Bilirubin (0.2-1) mg/dl AST (15-37) U/L ALT (12-78) U/L Alkaline Phosphatase (45-117) U/L Total Protein (6.4-8.2) gm/dl Albumin (3.4-5.0) gm/dl Globulin (2.5-4.0) gm/dl Albumin/Globulin Ratio (0.9-2) Urine Color Urine Appearance (Clear) Urine pH (4.5-7.5) Ur Specific [place] (1.000-1.030) Urine Protein (Negative) Urine Glucose (UA) (Negative) Urine Ketones (Negative) Urine Blood (Negative) Urine Nitrite (Negative) Urine Bilirubin (Negative) Urine Urobilinogen (Negative) Ur Leukocyte Esterase (Negative) Urine WBC (Auto) (0-5) /hpf Urine RBC (Auto) (0-4) /hpf U Hyaline Cast (Auto) (0-5) /lpf U Epithel Cells (Auto) (0-5) /lpf Urine Bacteria (Auto) (Negative) Urine Yeast 11/25/19 11/25/19 11/25/19 Range/Units 00:00 00:30 00:50 WBC (4.8-10.8) K/uL RBC (4.7-6.1) M/uL Hgb (14.0-18.0) g/dL Hct (42-52) % MCV (80-100) fL MCH (25-34) pg MCHC (32-36) g/dL RDW Std Deviation (36.4-46.3) fL RDW Coeff of Virginie (11.5-14.5) % Plt Count (130-400) K/uL MPV (7.4-10.4) fL Immature Gran % (Auto) % Neut % (Auto) % Lymph % (Auto) % [place] % (Auto) % Eos % (Auto) % Baso % (Auto) % Immature Gran # (Auto) (0.00-0.02) K/uL Neut # (Auto) (1.4-6.5) K/uL Lymph # (Auto) (1.2-3.4) K/uL [place] # (Auto) (0.11-0.59) K/uL Eos # (Auto) (0-0.5) K/uL Baso # (Auto) (0-0.2) K/uL PT (9.0-12.0) Seconds INR (0.9-1.1) APTT (21.0-31.0) Seconds PTT Ratio Sodium 136 (136-145) mmol/L Potassium 5.5 H (3.5-5.1) mmol/L Chloride 102 (98-107) mmol/L Carbon Dioxide 25 (21-32) mmol/L Anion Gap 10.0 (3-11) BUN 91 H (7-18) mg/dl Creatinine 7.85 H* (0.6-1.4) mg/dl Est Cr Clr Drug Dosing 7.6 ml/min Est GFR ( Amer) 6.7 Est GFR (Non-Af Amer) 5.7 BUN/Creatinine Ratio 11.6 (10-20) Glucose 157 H (70-99) mg/dl POC Glucose (70-99) mg/dl Lactate 1.5 (0.4-2.0) mmol/L Calcium 8.7 (8.5-10.1) mg/dl Magnesium 2.7 H (1.8-2.4) mg/dl Total Bilirubin 0.4 (0.2-1) mg/dl AST 60 H (15-37) U/L ALT 32 (12-78) U/L Alkaline Phosphatase 137 H (45-117) U/L Total Protein 6.2 L (6.4-8.2) gm/dl Albumin 2.5 L (3.4-5.0) gm/dl Globulin 3.7 (2.5-4.0) gm/dl Albumin/Globulin Ratio 0.7 L (0.9-2) Urine Color [place] Urine Appearance Cloudy A (Clear) Urine pH 5.0 (4.5-7.5) Ur Specific [place] 1.023 (1.000-1.030) Urine Protein Trace H (Negative) Urine Glucose (UA) Trace H (Negative) Urine Ketones Trace H (Negative) Urine Blood 2+ H (Negative) Urine Nitrite Positive A (Negative) Urine Bilirubin Negative (Negative) Urine Urobilinogen Negative (Negative) Ur Leukocyte Esterase 2+ H (Negative) Urine WBC (Auto) 1-5 (0-5) /hpf Urine RBC (Auto) >30 H (0-4) /hpf U Hyaline Cast (Auto) 0 (0-5) /lpf U Epithel Cells (Auto) 0-5 (0-5) /lpf Urine Bacteria (Auto) Negative (Negative) Urine Yeast Not Reportable Diagnostic Findings CXR with ICD in place ECG Additional Comments: EKG V paced, 87bpm, no acute ischemic changes Code Status & VTE Plan Code Status DNR/DNI VTE Prophylaxis Plan VTE Prophylaxis will be ordered: Yes PG Care Time/CCT Total # of Minutes Spent Total Time Spent with Patient: Total time spent is greater than 50% in coordination of care (as documented) at patient's floor/unit and/or counseling patient: Coding Level of Care Code 22006 Initial Inpt Care Lvl 3 Diagnoses Bacteremia R78.81 End-stage renal disease (ESRD) N18.6 Confusion R41.0 Nonischemic cardiomyopathy I42.8 Hyperkalemia E87.5 Hypothyroid E03.9 Hypothyroidism type: unspecified GERD (gastroesophageal reflux disease) K21.9 Esophagitis presence: esophagitis presence not specified Coronary artery disease I25.10 Coronary Disease-Associated Artery/Lesion type: [place] artery [place] vs. transplanted heart: [place] heart Associated angina: without angina Hypertension I10 Hypertension type: unspecified Hypercholesterolemia E78.00 Atrial fibrillation I48.91 Atrial fibrillation type: unspecified Diabetes mellitus type 2, insulin dependent E11.9; Z79.4 (1) Hypothyroid Hypothyroidism type: unspecified Qualified Code(s): E03.9 - Hypothyroidism, unspecified (2) GERD (gastroesophageal reflux disease) Esophagitis presence: esophagitis presence not specified Qualified Code(s): K21.9 - Gastro-esophageal reflux disease without esophagitis (3) Coronary artery disease Coronary Disease-Associated Artery/Lesion type: [place] artery [place] vs. transplanted heart: [place] heart Associated angina: without angina Qualified Code(s): I25.10 - Atherosclerotic heart disease of [place] coronary artery without angina pectoris (4) Hypertension Hypertension type: unspecified Qualified Code(s): I10 - Essential (primary) hypertension (5) Atrial fibrillation Atrial fibrillation type: unspecified Qualified Code(s): I48.91 - Unspecified atrial fibrillation
[2019-11-25] MEDS ORDERED: VANCOMYCIN CONSULT ACTIVE PRN (06:38)
[2019-11-25] MEDS ORDERED: ACETAMINOPHEN 325 MG TAB PO PRN (06:38)
[2019-11-25] MEDS ORDERED: bisacodyL 10 MG SUPP PR PRN (06:38)
[2019-11-25] MEDS ORDERED: POLYETHYLENE (MIRALAX) 17 GM PACK PO PRN (06:38)
[2019-11-25] MEDS ORDERED: ALBUT/IPRATROP 3MG/0.5MG NEB 3 ML VIAL INH PRN (06:38)
--- NOTE | 2019-11-25 07:19 | XRay Report ---
XR chest 1V portable CLINICAL HISTORY: SEPSIS COMPARISON STUDY: 11/08/2019 FINDINGS: The heart is the upper limits of normal in size. There is a left subclavian pacer/defibrill ator. There is a left-sided central venous catheter. There is no failure. There is no focal pulmonary consolidation. There are no pleural effusions.[ IMPRESSION: No active disease in the chest. ACT 112: Negative or not required by law. Electronically signed by: Raoul Roa M.D. 11/25/2019 7:18 AM
[2019-11-25] MEDS ORDERED: SODIUM CHLORIDE 0.9% 1000ML 1,000 ML IV PRN (07:59)
[2019-11-25] MEDS ORDERED: SODIUM POLYSTYRENE SULFONATE 15G/60ML SUSP PO SCH (09:00)
--- NOTE | 2019-11-25 09:06 | Pharmacy Report ---
Pharmacy Abx Initial Consult - Date of Service November 25, 2019 - Pharmacy Dosing Scope Date of Consult: 11/25/19 Consultation requested by: Dr. Garcia Pharmacy is consulted to initiate Vancomycin IV dosing therapy, order appropriate labs and adjust drug dose/frequency. - Subjective The patient is a 84 year old M admitted on 11/25/19 03:15. - Objective Height: 5 ft 8 in Weight: 105 kg Vital Signs (Past 12hrs): Vital Signs Temp Pulse Pulse Pulse Resp BP BP 11/25/19 07:00 36.8 C 80 22 112/69 11/25/19 06:38 36.5 C 78 18 106/67 11/25/19 06:03 75 16 92/58 L 11/25/19 05:00 37.2 C 88 20 93/53 L 11/25/19 04:30 72 20 96/54 L 11/25/19 04:00 74 18 95/56 L 11/25/19 03:44 80 16 99/49 L 11/25/19 03:00 105 H 20 92/50 L 11/25/19 02:30 79 18 107/49 L 11/25/19 02:00 75 22 96/59 L 11/25/19 01:31 72 18 100/50 L 11/25/19 01:00 80 18 93/53 L 11/25/19 00:30 82 22 91/62 L 11/25/19 00:17 77 24 98/56 L 11/25/19 00:05 11/24/19 23:40 37.7 C H 85 22 90/58 L Pulse Ox 11/25/19 07:00 93 11/25/19 06:38 97 11/25/19 06:03 97 11/25/19 05:00 97 11/25/19 04:30 97 11/25/19 04:00 98 11/25/19 03:44 97 11/25/19 03:00 97 11/25/19 02:30 97 11/25/19 02:00 97 11/25/19 01:31 99 11/25/19 01:00 96 11/25/19 00:30 97 11/25/19 00:17 100 11/25/19 00:05 98 11/24/19 23:40 98 Lab Results (24hrs): Laboratory Tests (24 Hours) 11/25/19 11/25/19 00:00 00:00 WBC 5.79 Neut # (Auto) 3.88 Creatinine 7.85 H* Est Cr Clr Drug Dosing 7.6 Micro Results: 11/25/19 00:50 Urine Culture - Pending Urine,Straight Cath 11/25/19 00:30 Aerobic Blood Culture - Pending Blood Anaerobic Blood Culture - Pending 11/25/19 00:00 Aerobic Blood Culture - Pending Blood Anaerobic Blood Culture - Pending - Risk Factors for Resistance * Resident in a custodial or extended-care facility - [facility] * Hospitalization for 48 hours or more within the past 90 days - 09/21-09/25/19 * Chronic dialysis within the past 30 days - last dialysis was 11/23; HD ordered for *today* 11/24 * 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 Therefore, will give Vancomycin ~12 hours from last Daptomycin dose to make up for lower dose Plan Vancomycin IV * Loading dose: 2000 mg (~20 mg/kg) x 1 today this afternoon *after* dialysis * Goal trough level for bacteremia : 15 to 20 mcg/mL * Random level ordered for 11/26/19 with AM labs * Given ESRD on HD status, Vancomycin will be dosed prn random levels Pharmacy will continue to follow and will adjust dose/frequency as necessary. Thank you.
[2019-11-25] MEDS: cefTRIAXone SODIUM 2,000 MG in DEXTROSE 5% 50 ML IV SCH (09:43)
[2019-11-25] MEDS: DOCUSATE SODIUM 100 MG CAP PO SCH (09:43)
[2019-11-25] MEDS: BUMETANIDE 1 MG TAB PO SCH ×2 (09:43→17:13)
[2019-11-25] MEDS: APIXABAN 2.5 MG TAB PO SCH ×2 (09:43→20:42)
[2019-11-25] MEDS: GABAPENTIN 300 MG CAP PO SCH ×2 (09:43→20:42)
[2019-11-25] MEDS: ESCITALOPRAM OXALATE ORAL SOLN 5 MG/5 ML PO SCH (09:43)
[2019-11-25] MEDS: LEVOTHYROXINE SODIUM 100 MCG TABLET PO SCH (09:44)
[2019-11-25] MEDS: INSULIN GLARGINE SOLOSTAR 100 UNITS/ML 3 ML PEN SQ SCH ×2 (09:45→20:41)
[2019-11-25] MEDS: KETOCONAZOLE 2% CR 15 GM TUBE EXT SCH (09:46)
[2019-11-25] MEDS ORDERED: MICONAZOLE NITRATE POWDER 43 GM EXT PRN (10:22)
[2019-11-25] MEDS: INSULIN ASPART 100 UNITS/ML 3 ML PEN SC SCH ×4 (10:42→20:42)
--- NOTE | 2019-11-25 12:21 | Hospitalist Progress Note ---
Date of Service November 25, 2019 Assessment & Plan (1) Bacteremia: Lance Holder 84y/o M with PMH significant for dementia, ESRD on dialysis //Wednesday, and CHF; who presented to the hospital from [facility] Bacteremia of uncertain origin: - following hemodialysis on , blood is reported to have grown either gram-negative rods or gram-positive cocci from outside lab report - will await copy of final report for antibiotic narrowing - initially elevated temperature, hypotensive on arrival - Blood cultures x2 pending - urinalysis demonstrated trace protein, 2+ blood, + nitrite, and 2+ leuk esterase - Urine culture pending - concern for infection of HD catheter as source of bacteremia - continue vancomycin and Ceftriaxone - consider Palliative care for GOC discussion with family ESRD: - On HD //Wednesday through [facility] cath right thigh. - Mildly hyperkalemic at 5.5 now otherwise no indication for urgent HD. Last treatment ended an hour early - Nephrology consult: plan on HD again today - COVID-19 testing pending; patient is not a PUI Altered mental status: - patient with h/o dementia; baseline mental status is oriented to person - previous reported obtundation while at [facility] no longer present this AM - ?etiology 2/2 metabolic encephalopathy in setting of acute infection vs delirium - Frequent orientation for delirium prevention - treatment of underlying infection to be continued Nonischemic Cardiomyopathy: - continue to hold metoprolol at this time - continue home bumex Coronary Artery Disease: - continue to hold metoprolol at this time - continue home atorvastatin - continue to monitor on telemetry HTN: - holding home regimen in setting of hypotension on arrival and borderline low BP overnight with concern of bacteremia A. Fib: - h/o rate controlled A. fib, HR maintained between 72-103 overnight despite holding of metoprolol - continue holding metoprolol at this time - Continue Eliquis T2DM: - Lantus to 18u BID with SSI for continued correction - Continue to monitor Diet: Heart Healthy/Renal diet DVT PPx - Apixaban Code - DNR/DNI (2) End-stage renal disease (ESRD): (3) Confusion: (4) Nonischemic cardiomyopathy: (5) Hyperkalemia: (6) Hypothyroid: (7) GERD (gastroesophageal reflux disease): (8) Coronary artery disease: (9) Hypertension: (10) Hypercholesterolemia: (11) Atrial fibrillation: (12) Diabetes mellitus type 2, insulin dependent: Admission and Anticipated Discharge Date Admission Date: November 25, 2019 Anticipated date of discharge: 11/27/19 Supervising Physician Co-Signing Physician Notes Resident Physician Supervision Note: I independently interviewed and examined the patient and verified the harris history and physical, reviewed labs and image studies, discussed the case with the resident Dr. Santos and agree with the findings and care plan. Subjective Patient is awake and alert this morning, pleasantly unaware of current location or recent events. Able to express that he's hungry to nursing staff. Lab reports detailing blood cultures from previous hemodialysis appointment on have not arrived as of this morning. Review of Systems Review of Systems: Unobtainable due to cognitive status Physical Exam Constitutional: WD/WN, vitals as above Eyes: PERRL, conjunctivae normal, anicteric sclerae Respiratory: normal respiratory effort, lungs clear to auscultation Cardiovascular: Rate/Rhythm: regular rate Heart Sounds: no gallop, no murmur and no cardiac rub Vessels: no JVD Extremities: no edema Gastrointestinal (Abdomen): normal bowel sounds, soft, nontender, no hepatosplenomegaly Skin: + ulcer (chronic appearing venous stasis ulcers of extremities) and + wound (numerous punctate wounds over ) Neurologic: moves all extremities; no focal motor deficits Psychiatric: Orientation: alert, oriented to person and cooperative; + not oriented to place and + not oriented to time Eye Contact: good eye contact Motor Behavior: + abnormal motor movements Results & Data Results & Data ([facility]) Vital Signs (Past 12 Hours) Vital Signs Temp Pulse Pulse Pulse Resp BP BP 11/25/19 07:00 36.8 C 80 22 112/69 11/25/19 06:38 36.5 C 78 18 106/67 11/25/19 06:03 75 16 92/58 L 11/25/19 05:00 37.2 C 88 20 93/53 L 11/25/19 04:30 72 20 96/54 L 11/25/19 04:00 74 18 95/56 L 11/25/19 03:44 80 16 99/49 L 11/25/19 03:00 105 H 20 92/50 L 11/25/19 02:30 79 18 107/49 L 11/25/19 02:00 75 22 96/59 L 11/25/19 01:31 72 18 100/50 L 11/25/19 01:00 80 18 93/53 L 11/25/19 00:30 82 22 91/62 L 11/25/19 00:17 77 24 98/56 L 11/25/19 00:05 Pulse Ox 11/25/19 07:00 93 11/25/19 06:38 97 11/25/19 06:03 97 11/25/19 05:00 97 11/25/19 04:30 97 11/25/19 04:00 98 11/25/19 03:44 97 11/25/19 03:00 97 11/25/19 02:30 97 11/25/19 02:00 97 11/25/19 01:31 99 11/25/19 01:00 96 11/25/19 00:30 97 11/25/19 00:17 100 11/25/19 00:05 98 Laboratory Results 11/25/19 11/25/19 11/25/19 Range/Units 10:15 10:15 07:41 WBC (4.8-10.8) K/uL RBC (4.7-6.1) M/uL Hgb (14.0-18.0) g/dL Hct (42-52) % MCV (80-100) fL MCH (25-34) pg MCHC (32-36) g/dL RDW Std Deviation (36.4-46.3) fL RDW Coeff of Virginie (11.5-14.5) % Plt Count (130-400) K/uL MPV (7.4-10.4) fL Immature Gran % (Auto) % Neut % (Auto) % Lymph % (Auto) % [place] % (Auto) % Eos % (Auto) % Baso % (Auto) % Immature Gran # (Auto) (0.00-0.02) K/uL Neut # (Auto) (1.4-6.5) K/uL Lymph # (Auto) (1.2-3.4) K/uL [place] # (Auto) (0.11-0.59) K/uL Eos # (Auto) (0-0.5) K/uL Baso # (Auto) (0-0.2) K/uL PT (9.0-12.0) Seconds INR (0.9-1.1) APTT (21.0-31.0) Seconds PTT Ratio Sodium (136-145) mmol/L Potassium (3.5-5.1) mmol/L Chloride (98-107) mmol/L Carbon Dioxide (21-32) mmol/L Anion Gap (3-11) BUN (7-18) mg/dl Creatinine (0.6-1.4) mg/dl Est Cr Clr Drug Dosing ml/min Est GFR ( Amer) Est GFR (Non-Af Amer) BUN/Creatinine Ratio (10-20) Glucose (70-99) mg/dl POC Glucose 123 H (70-99) mg/dl Lactate (0.4-2.0) mmol/L Calcium (8.5-10.1) mg/dl Magnesium (1.8-2.4) mg/dl Total Bilirubin (0.2-1) mg/dl AST (15-37) U/L ALT (12-78) U/L Alkaline Phosphatase (45-117) U/L Total Protein (6.4-8.2) gm/dl Albumin (3.4-5.0) gm/dl Globulin (2.5-4.0) gm/dl Albumin/Globulin Ratio (0.9-2) Urine Color Urine Appearance (Clear) Urine pH (4.5-7.5) Ur Specific [place] (1.000-1.030) Urine Protein (Negative) Urine Glucose (UA) (Negative) Urine Ketones (Negative) Urine Blood (Negative) Urine Nitrite (Negative) Urine Bilirubin (Negative) Urine Urobilinogen (Negative) Ur Leukocyte Esterase (Negative) Urine WBC (Auto) (0-5) /hpf Urine RBC (Auto) (0-4) /hpf U Hyaline Cast (Auto) (0-5) /lpf U Epithel Cells (Auto) (0-5) /lpf Urine Bacteria (Auto) (Negative) Urine Yeast Nasal Screen MRSA (PCR) Negative (Negative) SARS-CoV-2 RNA (RT-PCR) Pending 11/25/19 11/25/19 11/25/19 Range/Units 00:50 00:30 00:00 WBC (4.8-10.8) K/uL RBC (4.7-6.1) M/uL Hgb (14.0-18.0) g/dL Hct (42-52) % MCV (80-100) fL MCH (25-34) pg MCHC (32-36) g/dL RDW Std Deviation (36.4-46.3) fL RDW Coeff of Virginie (11.5-14.5) % Plt Count (130-400) K/uL MPV (7.4-10.4) fL Immature Gran % (Auto) % Neut % (Auto) % Lymph % (Auto) % [place] % (Auto) % Eos % (Auto) % Baso % (Auto) % Immature Gran # (Auto) (0.00-0.02) K/uL Neut # (Auto) (1.4-6.5) K/uL Lymph # (Auto) (1.2-3.4) K/uL [place] # (Auto) (0.11-0.59) K/uL Eos # (Auto) (0-0.5) K/uL Baso # (Auto) (0-0.2) K/uL PT (9.0-12.0) Seconds INR (0.9-1.1) APTT (21.0-31.0) Seconds PTT Ratio Sodium 136 (136-145) mmol/L Potassium 5.5 H (3.5-5.1) mmol/L Chloride 102 (98-107) mmol/L Carbon Dioxide 25 (21-32) mmol/L Anion Gap 10.0 (3-11) BUN 91 H (7-18) mg/dl Creatinine 7.85 H* (0.6-1.4) mg/dl Est Cr Clr Drug Dosing 7.6 ml/min Est GFR ( Amer) 6.7 Est GFR (Non-Af Amer) 5.7 BUN/Creatinine Ratio 11.6 (10-20) Glucose 157 H (70-99) mg/dl POC Glucose (70-99) mg/dl Lactate 1.5 (0.4-2.0) mmol/L Calcium 8.7 (8.5-10.1) mg/dl Magnesium 2.7 H (1.8-2.4) mg/dl Total Bilirubin 0.4 (0.2-1) mg/dl AST 60 H (15-37) U/L ALT 32 (12-78) U/L Alkaline Phosphatase 137 H (45-117) U/L Total Protein 6.2 L (6.4-8.2) gm/dl Albumin 2.5 L (3.4-5.0) gm/dl Globulin 3.7 (2.5-4.0) gm/dl Albumin/Globulin Ratio 0.7 L (0.9-2) Urine Color [place] Urine Appearance Cloudy A (Clear) Urine pH 5.0 (4.5-7.5) Ur Specific [place] 1.023 (1.000-1.030) Urine Protein Trace H (Negative) Urine Glucose (UA) Trace H (Negative) Urine Ketones Trace H (Negative) Urine Blood 2+ H (Negative) Urine Nitrite Positive A (Negative) Urine Bilirubin Negative (Negative) Urine Urobilinogen Negative (Negative) Ur Leukocyte Esterase 2+ H (Negative) Urine WBC (Auto) 1-5 (0-5) /hpf Urine RBC (Auto) >30 H (0-4) /hpf U Hyaline Cast (Auto) 0 (0-5) /lpf U Epithel Cells (Auto) 0-5 (0-5) /lpf Urine Bacteria (Auto) Negative (Negative) Urine Yeast Not Reportable Nasal Screen MRSA (PCR) (Negative) SARS-CoV-2 RNA (RT-PCR) 11/25/19 11/25/19 11/24/19 Range/Units 00:00 00:00 23:54 WBC 5.79 (4.8-10.8) K/uL RBC 3.65 L (4.7-6.1) M/uL Hgb 11.6 L (14.0-18.0) g/dL Hct 37.3 L (42-52) % MCV 102.2 H (80-100) fL MCH 31.8 (25-34) pg MCHC 31.1 L (32-36) g/dL RDW Std Deviation 60.1 H (36.4-46.3) fL RDW Coeff of Virginie 16.2 H (11.5-14.5) % Plt Count 118 L (130-400) K/uL MPV 10.6 H (7.4-10.4) fL Immature Gran % (Auto) 0.9 % Neut % (Auto) 66.9 % Lymph % (Auto) 20.2 % [place] % (Auto) 9.7 % Eos % (Auto) 2.1 % Baso % (Auto) 0.2 % Immature Gran # (Auto) 0.05 H (0.00-0.02) K/uL Neut # (Auto) 3.88 (1.4-6.5) K/uL Lymph # (Auto) 1.17 L (1.2-3.4) K/uL [place] # (Auto) 0.56 (0.11-0.59) K/uL Eos # (Auto) 0.12 (0-0.5) K/uL Baso # (Auto) 0.01 (0-0.2) K/uL PT 13.3 H (9.0-12.0) Seconds INR 1.3 H (0.9-1.1) APTT 38.0 H (21.0-31.0) Seconds PTT Ratio 1.4 Sodium (136-145) mmol/L Potassium (3.5-5.1) mmol/L Chloride (98-107) mmol/L Carbon Dioxide (21-32) mmol/L Anion Gap (3-11) BUN (7-18) mg/dl Creatinine (0.6-1.4) mg/dl Est Cr Clr Drug Dosing ml/min Est GFR ( Amer) Est GFR (Non-Af Amer) BUN/Creatinine Ratio (10-20) Glucose (70-99) mg/dl POC Glucose 201 H (70-99) mg/dl Lactate (0.4-2.0) mmol/L Calcium (8.5-10.1) mg/dl Magnesium (1.8-2.4) mg/dl Total Bilirubin (0.2-1) mg/dl AST (15-37) U/L ALT (12-78) U/L Alkaline Phosphatase (45-117) U/L Total Protein (6.4-8.2) gm/dl Albumin (3.4-5.0) gm/dl Globulin (2.5-4.0) gm/dl Albumin/Globulin Ratio (0.9-2) Urine Color Urine Appearance (Clear) Urine pH (4.5-7.5) Ur Specific [place] (1.000-1.030) Urine Protein (Negative) Urine Glucose (UA) (Negative) Urine Ketones (Negative) Urine Blood (Negative) Urine Nitrite (Negative) Urine Bilirubin (Negative) Urine Urobilinogen (Negative) Ur Leukocyte Esterase (Negative) Urine WBC (Auto) (0-5) /hpf Urine RBC (Auto) (0-4) /hpf U Hyaline Cast (Auto) (0-5) /lpf U Epithel Cells (Auto) (0-5) /lpf Urine Bacteria (Auto) (Negative) Urine Yeast Nasal Screen MRSA (PCR) (Negative) SARS-CoV-2 RNA (RT-PCR) Medications Administered Current Inpatient Medications Acetaminophen (Tylenol) 650 mg PO Q4H PRN PRN Reason: pain/fever Stop: 12/25/19 06:37 Albuterol (Duoneb) 3 ml INH Q6 PRN PRN Reason: COUGH, WHEEZING , DYSPENIA Stop: 12/25/19 06:37 Apixaban (Eliquis) 2.5 mg PO BID [facility] Stop: 12/25/19 08:59 Last Admin: 11/25/19 09:43 Dose: 2.5 mg Documented by: Atorvastatin Calcium (Lipitor) 80 mg PO HS [facility] Stop: 12/25/19 20:59 Bisacodyl (Dulcolax) 10 mg [place] DAILY PRN PRN Reason: Constipation Stop: 12/25/19 06:37 Bumetanide (Bumex) 2 mg PO BID17 [facility] Stop: 12/25/19 08:59 Last Admin: 11/25/19 09:43 Dose: 2 mg Documented by: Docusate Sodium (Colace) 100 mg PO DAILY [facility] Stop: 12/25/19 08:59 Last Admin: 11/25/19 09:43 Dose: 100 mg Documented by: Escitalopram Oxalate (Lexapro Soln) 7.5 mg PO DAILY [facility] Stop: 12/25/19 08:59 Last Admin: 11/25/19 09:43 Dose: 7.5 mg Documented by: Famotidine (Pepcid) 10 mg PO SuMoWeFr@0900 [facility] Stop: 12/26/19 08:59 Gabapentin (Neurontin) 600 mg PO BID [facility] Stop: 12/25/19 08:59 Last Admin: 11/25/19 09:43 Dose: 600 mg Documented by: Vancomycin HCl 2,000 mg/ (Sodium Chloride) 540 mls @ 200 mls/hr IV ONE ONE; Protocol Stop: 11/25/19 18:41 Ceftriaxone Sodium 2,000 mg/ (Dextrose) 70 mls @ 100 mls/hr IV Q24H [facility]; Protocol Stop: 11/27/19 07:59 Last Infusion: 11/25/19 10:43 Dose: Infused Documented by: Sodium Chloride (Nss 1000ml) 1,000 mls @ 0 mls/hr IV .Q0M PRN PRN Reason: For Hemodialysis Use ONLY Stop: 11/25/19 13:58 Insulin Aspart (Novolog Flexpen) 0 units SC ACHS [facility] Stop: 12/25/19 07:29 Last Admin: 11/25/19 10:42 Dose: Not Given Documented by: Insulin Glargine (Lantus Solostar Pen) 18 units SQ Q12 DANA Stop: 12/25/19 08:59 Last Admin: 11/25/19 09:45 Dose: 18 units Documented by: Ketoconazole (Nizoral 2%) 1 appln EXT DAILY [facility] Stop: 12/05/19 08:59 Last Admin: 11/25/19 09:46 Dose: 1 appln Documented by: Levothyroxine Sodium (Synthroid) 100 mcg PO DAILY@0700 [facility] Stop: 12/25/19 06:59 Last Admin: 11/25/19 09:44 Dose: 100 mcg Documented by: Miconazole Nitrate (Desenex) 1 appln EXT PRN PRN PRN Reason: Affected Skin Folds Stop: 12/25/19 10:21 Miscellaneous Information (Consult) 1 ea N/A UD PRN PRN Reason: Consult Stop: 12/25/19 06:37 Polyethylene Glycol (Miralax Powder Packet) 17 gm PO DAILY PRN PRN Reason: Constipation Stop: 12/25/19 06:37 Sodium Polystyrene Sulfonate (Kayexalate) 30 gm PO DAILY [facility] Stop: 12/25/19 08:59 Last Admin: 11/25/19 09:45 Dose: 30 gm Documented by: Resident Activity Tracking Resident Involvement: Resident Care Provided Care Provided: Adult Hospital Medicine (1) Coronary artery disease Associated angina: without angina Coronary Disease-Associated Artery/Lesion type: [place] artery [place] vs. transplanted heart: [place] heart Qualified Code(s): I25.10 - Atherosclerotic heart disease of [place] coronary artery without angina pectoris (2) Atrial fibrillation Atrial fibrillation type: unspecified Qualified Code(s): I48.91 - Unspecified atrial fibrillation (3) Hypothyroid Hypothyroidism type: unspecified Qualified Code(s): E03.9 - Hypothyroidism, unspecified (4) GERD (gastroesophageal reflux disease) Esophagitis presence: esophagitis presence not specified Qualified Code(s): K21.9 - Gastro-esophageal reflux disease without esophagitis (5) Hypertension Hypertension type: unspecified Qualified Code(s): I10 - Essential (primary) hypertension
--- NOTE | 2019-11-25 12:40 | Nephrology Consultation ---
Date of Consultation November 25, 2019 Assessment & Plan (1) Bacteremia: Preliminary cultures obtained at [facility] on 11/23/19 have grown gram negative rods. I have requested a culture report to be sent to the patient's fci as well as [facility]. Follow up cultures pending. Currently on treatment with ceftriaxone and vancomycin. Abx dosed appropriately for kidney function. Vanco level may be checked pre-HD and redose as needed per pharmacy consult. Source of infection unclear. Multiple wounds, no GI symptoms, Femoral dialysis catheter. Will attempt to access AVF for HD today. Hopefully, if AVF functions well, TDC may be able to be removed within the next few days. (2) End-stage renal disease (ESRD): TTS at [facility] under the care of Dr. Bah as outpatient. Lance is at his EDW. Last treatment . Orders for HD today have been entered into the EMR and reviewed with the dialysis nurse. Low K bath for hyperkalemia. The patient's prescription is 4 hours on a 180 Optiflux. Today, we will try to use his fistula with a Qb goal of 400. His estimated dry weight is 105 kg. This is continually adjusted in accordance with recent weight loss. EDW had been 108 kg 1 month ago. He typically dialyzes on a 3 potassium bath. Recent complications with dialysis include progressive dementia requiring frequent reorientation and inability to express concerns during treatment. It appears that confusion likely resulted in infiltration of his fistula which was complicated by his anticoagulation. Overall this is a difficult situation. During a recent admission, I discussed this at length with the patient's the risks and benefits of anticoagulation moving forward need to be considered as well as overall goals of care. Dr. Bah had a follow up conversation regarding goals of care and overall prognosis yesterday. History of Present Illness Reason for Consultation: ESRD on HD Requesting Physician: Peace Rebolledo MD Attending Physician: Peace Rebolledo MD History of Present Illness Lance Holder is an 84-year-old male with end-stage renal disease attributed to diabetic nephropathy and hypertensive nephrosclerosis. Lance is on hemodialysis in center at [facility]. Dr. Bah is his primary product engineering manager. He dialyzes on a Wednesday schedule. The patient was evaluated during dialysis on . He presented to HD on 11/23/2019 with profound weakness and mental status changes. Symptoms noted for at least 24 hours pre report from the [facility] where [facility] resides. He had acute on chronic hypotension and a low grade fever of 99. Blood cultures were obtained during the dialysis. Late yesterday evening, I was contacted and informed that the preliminary culture findings demonstrated gram negative rods. Daniella Alcala was alerted and Lance was sent to [facility] for additional evaluation and management. He has been started on treatment with vanco and ceftriaxone. He is afebrile. Medical history is notable for dementia, ischemic cardiomyopathy, peripheral arterial disease, atrial fibrillation, diabetes mellitus II, and ESRD. Lance has multiple healing wounds for which he follows in the wound care clinic. He has been dialyzing through a left femoral TDC. Movement during dialysis recently infiltrated his left brachiocephalic AV fistula. The arm has head but swelling and pain limited use of the AVF. Due to dementia the patient's ability to provide medical history is limited and we obtain much of the history from review of his records as well as discussion with his . It is noted that Dr. Bah had a conversation reviewing goals of care with the patient's daughter (Bridgett) yesterday. Acknowledging Lance's multiple medical comorbidities and unfortunate declining health and overall poor prognosis, they had decided to continue with dialysis. Lance is a DNR/DNI. Allergies Allergy/AdvReac Type Severity Reaction Status Date / Time clindamycin AdvReac Mild Nausea Verified 11/25/19 00:09 Home Medications Home Medications Medication Instructions Recorded Confirmed Type Calcium 600 + D(3) 1 cap PO QAM 09/21/19 11/25/19 History acetaminophen [Tylenol Extra 1,000 mg PO Q8 PRN 09/21/19 11/25/19 History Strength] acetaminophen [Tylenol] 650 mg PO Q4 PRN 09/21/19 11/25/19 History ascorbic acid (vitamin C) [Vitamin 1,000 mg PO QAM 09/21/19 11/25/19 History C] atorvastatin [Lipitor] 80 mg PO HS 09/21/19 11/25/19 History bumetanide 2 mg PO BID 09/21/19 11/25/19 History cholecalciferol (vitamin D3) 25 mcg PO QAM 09/21/19 11/25/19 History [Vitamin D3] docusate sodium [Colace] 100 mg PO DAILY 09/21/19 11/25/19 History escitalopram oxalate [Lexapro] 7.5 mg PO QAM 09/21/19 11/25/19 History famotidine 10 mg PO 4XWK 09/21/19 11/25/19 History insulin aspart U-100 [Novolog 5 unit SUBCUT TIDM 09/21/19 11/25/19 History U-100 Insulin aspart] ipratropium-albuterol 3 ml INHALATION Q6 PRN 09/21/19 11/25/19 History levothyroxine 100 mcg PO DAILY@0700 09/21/19 11/25/19 History nitroglycerin [Nitrostat] 0.4 mg SUBLINGUAL UD PRN 09/21/19 11/25/19 History oxymetazoline [Afrin Sinus 2 spray INTRANASAL Q8 PRN 09/21/19 11/25/19 History (oxymetazoline)] polyethylene glycol 3350 [Miralax] 17 g PO DAILY PRN 09/21/19 11/25/19 History Basaglar KwikPen U-100 Insulin 25 unit SUBCUT Q12 10/04/19 11/25/19 History apixaban [Eliquis] 2.5 mg PO BID 11/16/19 11/25/19 History cephalexin 500 mg PO DAILY 11/16/19 11/25/19 History epoetin beta, methoxy peg [Mircera] 100 mcg IV UD 11/16/19 11/25/19 History gabapentin 600 mg PO BID 11/16/19 11/25/19 History iron sucrose 50 mg IV WK 11/16/19 11/25/19 History bisacodyl [Dulcolax (bisacodyl)] 10 mg UT DIRECTED PRN 11/25/19 11/25/19 History hydrocodone-acetaminophen [Quinter] 1 tab PO Q6H PRN 11/25/19 11/25/19 History insulin aspart U-100 5 unit SUBCUT 3XWK 11/25/19 11/25/19 History ketoconazole 1 applic TOPICAL DAILY 11/25/19 11/25/19 History metoprolol succinate 50 mg PO 3XWK 11/25/19 11/25/19 History pediatric multivitamin 1 tab PO DAILY 11/25/19 11/25/19 History sodium polystyrene sulfonate 120 ml PO DAILY 11/25/19 11/25/19 History Patient History Medical History Actinic keratitis ARMS - SCALY; LEGS DEVELOPED OPEN WOUNDS STILL HAS SOME OPEN AREAS ON LEGS Age-related cognitive decline Alzheimer's dementia Anemia in chronic kidney disease (CKD) Broken shoulder left shoulder feb 2019 Chronic kidney disease, stage IV (severe) [facility] Compression fracture of lumbar vertebra Coronary artery disease S/P CABG X 4 (~2002) Diabetes IDDM Dry eye syndrome of bilateral lacrimal glands GERD (gastroesophageal reflux disease) CONTROLLED H/O prostate cancer brachytherapy treatment. Hemodialysis patient FISTULA LEFT ARM. receiving diaylsis Wednesday, & Wednesday @ [facility] [place] [facility] History of kidney stones History of left bundle branch block (LBBB) HTN (hypertension) Hypercholesteremia Hypothyroid Ischemic cardiomyopathy s/p insertion of pacer/icd 2013. Stable. EF 65-70% on 09/2019 echo. Lipoprotein deficiency Obesity Permanent atrial fibrillation Asymptomatic per cardio 10/24/18. Rate controlled on BB, anticoagulated with Eliquis. Secondary hyperparathyroidism Sleep apnea NO LONGER USES CPAP Spinal stenosis Venous stasis Surgical History H/O four vessel coronary artery bypass graft CABG X 4 (~2002) H/O total knee replacement RIGHT Hematoma LEFT ARM FISTULA History of brachytherapy History of cardioversion unsuccessful History of colonoscopy History of surgical removal of pilonidal cyst Hx of hemorrhoidectomy Presence of implantable cardioverter-defibrillator (ICD) PPM/ICD IMPLANTED 2013; [employer] LAST PACER CHECK S/P arteriovenous (AV) fistula creation LUE S/P dialysis catheter insertion Family History Sister Kidney stones Son Kidney stones Mother Diabetes Hypertension Heart disease Aunt Colon cancer Denies family history of Ovarian cancer Prostate cancer Myocardial infarction Breast cancer Social History Preferred Language: Belarusian Communication Ability: Impaired Visual Impairment: Limited Hearing Ability: Normal Bulk Receiver Required: No Beliefs That Will Affect Care: None marital status: Current Living Situation: [facility] Current Living Situation Comment: [facility] current occupational status: retired Feels Safe at Home: Yes Smoking Status: Unknown if ever smoked Hx Alcohol Use: No Hx Substance Use: No (unknown) Review of Systems Review of Systems: Unobtainable due to cognitive status Physical Exam Constitutional: + ill appearing and + frail appearing; no acute distress Eyes: + anicteric sclerae ENMT: Mouth: + dry oral mucous membranes; no oral mucosal abnormality Neck: normal visual inspection and trachea midline Respiratory: normal respiratory effort Auscultation: + crackles Cardiovascular: Heart Sounds: normal S1, normal S2 and + murmur Extremities: + AV fistula L BC with thrill and bruit Gastrointestinal (Abdomen): Percussion/Palpation: abdomen soft; abdomen nontender Musculoskeletal: Extremities: no cyanosis and no clubbing R femoral HD catheter Skin: + wound, + ecchymosis and + excoriations Results & Data Vital Signs (Past 12 Hours) Vital Signs Temp Pulse Pulse Pulse Resp BP BP 11/25/19 07:00 36.8 C 80 22 112/69 11/25/19 06:38 36.5 C 78 18 106/67 11/25/19 06:03 75 16 92/58 L 11/25/19 05:00 37.2 C 88 20 93/53 L 11/25/19 04:30 72 20 96/54 L 11/25/19 04:00 74 18 95/56 L 11/25/19 03:44 80 16 99/49 L 11/25/19 03:00 105 H 20 92/50 L 11/25/19 02:30 79 18 107/49 L 11/25/19 02:00 75 22 96/59 L 11/25/19 01:31 72 18 100/50 L 11/25/19 01:00 80 18 93/53 L Pulse Ox 11/25/19 07:00 93 11/25/19 06:38 97 11/25/19 06:03 97 11/25/19 05:00 97 11/25/19 04:30 97 11/25/19 04:00 98 11/25/19 03:44 97 11/25/19 03:00 97 11/25/19 02:30 97 11/25/19 02:00 97 11/25/19 01:31 99 11/25/19 01:00 96 Laboratory Results Laboratory Results - last 24 hr 11/24/19 11/25/19 11/25/19 23:54 00:00 00:00 WBC 5.79 RBC 3.65 L Hgb 11.6 L Hct 37.3 L MCV 102.2 H MCH 31.8 MCHC 31.1 L RDW Std Deviation 60.1 H RDW Coeff of Virginie 16.2 H Plt Count 118 L MPV 10.6 H Immature Gran % (Auto) 0.9 Neut % (Auto) 66.9 Lymph % (Auto) 20.2 [place] % (Auto) 9.7 Eos % (Auto) 2.1 Baso % (Auto) 0.2 Immature Gran # (Auto) 0.05 H Neut # (Auto) 3.88 Lymph # (Auto) 1.17 L [place] # (Auto) 0.56 Eos # (Auto) 0.12 Baso # (Auto) 0.01 PT 13.3 H INR 1.3 H APTT 38.0 H PTT Ratio 1.4 Sodium Potassium Chloride Carbon Dioxide Anion Gap BUN Creatinine Est Cr Clr Drug Dosing Est GFR ( Amer) Est GFR (Non-Af Amer) BUN/Creatinine Ratio Glucose POC Glucose 201 H Lactate Calcium Magnesium Total Bilirubin AST ALT Alkaline Phosphatase Total Protein Albumin Globulin Albumin/Globulin Ratio Urine Color Urine Appearance Urine pH Ur Specific [place] Urine Protein Urine Glucose (UA) Urine Ketones Urine Blood Urine Nitrite Urine Bilirubin Urine Urobilinogen Ur Leukocyte Esterase Urine WBC (Auto) Urine RBC (Auto) U Hyaline Cast (Auto) U Epithel Cells (Auto) Urine Bacteria (Auto) Urine Yeast Nasal Screen MRSA (PCR) SARS-CoV-2 RNA (RT-PCR) 11/25/19 11/25/19 11/25/19 00:00 00:30 00:50 WBC RBC Hgb Hct MCV MCH MCHC RDW Std Deviation RDW Coeff of Virginie Plt Count MPV Immature Gran % (Auto) Neut % (Auto) Lymph % (Auto) [place] % (Auto) Eos % (Auto) Baso % (Auto) Immature Gran # (Auto) Neut # (Auto) Lymph # (Auto) [place] # (Auto) Eos # (Auto) Baso # (Auto) PT INR APTT PTT Ratio Sodium 136 Potassium 5.5 H Chloride 102 Carbon Dioxide 25 Anion Gap 10.0 BUN 91 H Creatinine 7.85 H* Est Cr Clr Drug Dosing 7.6 Est GFR ( Amer) 6.7 Est GFR (Non-Af Amer) 5.7 BUN/Creatinine Ratio 11.6 Glucose 157 H POC Glucose Lactate 1.5 Calcium 8.7 Magnesium 2.7 H Total Bilirubin 0.4 AST 60 H ALT 32 Alkaline Phosphatase 137 H Total Protein 6.2 L Albumin 2.5 L Globulin 3.7 Albumin/Globulin Ratio 0.7 L Urine Color [place] Urine Appearance Cloudy A Urine pH 5.0 Ur Specific [place] 1.023 Urine Protein Trace H Urine Glucose (UA) Trace H Urine Ketones Trace H Urine Blood 2+ H Urine Nitrite Positive A Urine Bilirubin Negative Urine Urobilinogen Negative Ur Leukocyte Esterase 2+ H Urine WBC (Auto) 1-5 Urine RBC (Auto) >30 H U Hyaline Cast (Auto) 0 U Epithel Cells (Auto) 0-5 Urine Bacteria (Auto) Negative Urine Yeast Not Reportable Nasal Screen MRSA (PCR) SARS-CoV-2 RNA (RT-PCR) 11/25/19 11/25/19 11/25/19 07:41 10:15 10:15 WBC RBC Hgb Hct MCV MCH MCHC RDW Std Deviation RDW Coeff of Virginie Plt Count MPV Immature Gran % (Auto) Neut % (Auto) Lymph % (Auto) [place] % (Auto) Eos % (Auto) Baso % (Auto) Immature Gran # (Auto) Neut # (Auto) Lymph # (Auto) [place] # (Auto) Eos # (Auto) Baso # (Auto) PT INR APTT PTT Ratio Sodium Potassium Chloride Carbon Dioxide Anion Gap BUN Creatinine Est Cr Clr Drug Dosing Est GFR ( Amer) Est GFR (Non-Af Amer) BUN/Creatinine Ratio Glucose POC Glucose 123 H Lactate Calcium Magnesium Total Bilirubin AST ALT Alkaline Phosphatase Total Protein Albumin Globulin Albumin/Globulin Ratio Urine Color Urine Appearance Urine pH Ur Specific [place] Urine Protein Urine Glucose (UA) Urine Ketones Urine Blood Urine Nitrite Urine Bilirubin Urine Urobilinogen Ur Leukocyte Esterase Urine WBC (Auto) Urine RBC (Auto) U Hyaline Cast (Auto) U Epithel Cells (Auto) Urine Bacteria (Auto) Urine Yeast Nasal Screen MRSA (PCR) Negative SARS-CoV-2 RNA (RT-PCR) Pending 11/25/19 12:42 WBC RBC Hgb Hct MCV MCH MCHC RDW Std Deviation RDW Coeff of Virginie Plt Count MPV Immature Gran % (Auto) Neut % (Auto) Lymph % (Auto) [place] % (Auto) Eos % (Auto) Baso % (Auto) Immature Gran # (Auto) Neut # (Auto) Lymph # (Auto) [place] # (Auto) Eos # (Auto) Baso # (Auto) PT INR APTT PTT Ratio Sodium Potassium Chloride Carbon Dioxide Anion Gap BUN Creatinine Est Cr Clr Drug Dosing Est GFR ( Amer) Est GFR (Non-Af Amer) BUN/Creatinine Ratio Glucose POC Glucose 145 H Lactate Calcium Magnesium Total Bilirubin AST ALT Alkaline Phosphatase Total Protein Albumin Globulin Albumin/Globulin Ratio Urine Color Urine Appearance Urine pH Ur Specific [place] Urine Protein Urine Glucose (UA) Urine Ketones Urine Blood Urine Nitrite Urine Bilirubin Urine Urobilinogen Ur Leukocyte Esterase Urine WBC (Auto) Urine RBC (Auto) U Hyaline Cast (Auto) U Epithel Cells (Auto) Urine Bacteria (Auto) Urine Yeast Nasal Screen MRSA (PCR) SARS-CoV-2 RNA (RT-PCR) PG Care Time/CCT Total # of Minutes Spent Total Time Spent with Patient: Total time spent is greater than 50% in coordination of care (as documented) at patient's floor/unit and/or counseling patient: Coding Level of Care Code 66612 Inpt Consult Level 4 Diagnoses Bacteremia R78.81 End-stage renal disease (ESRD) N18.6
[2019-11-25] MEDS ORDERED: VANCOMYCIN HCL 2,000 MG in SODIUM CHLORIDE 0.9% 500 ML IV ONE (16:00)
[2019-11-25] MEDS: ATORVASTATIN 40 MG TAB PO SCH (20:42)
--- NOTE | 2019-11-25 22:03 | Electrocardiogram Report ---
Test Reason : Blood Pressure : / mmHG Vent. Rate : 087 BPM Atrial Rate : 065 BPM P-R Int : 000 ms QRS Dur : 124 ms QT Int : 398 ms P-R-T Axes : 000 076 253 degrees QTc Int : 478 ms Ventricular-paced rhythm Atrial fibrillation Abnormal ECG When compared with ECG of 16-NOV-2019 13:44, Vent. rate has decreased BY 2 BPM Confirmed by Jeff Leonard ([id number]) on 11/25/2019 10:03:16 PM Referred By: [facility] Confirmed By:Jeff Leonard
[2019-11-26 06:07] LABS: Basophils # (auto) 0.01 K/uL (0-0.2); Basophils % (auto) 0.2 %; Eosinophils # (auto) 0.19 K/uL (0-0.5); Eosinophils % (auto) 3.5 %; Immature Granulocytes # (auto) 0.03 K/uL (0.00-0.02); Immature Granulocytes % (auto) 0.6 %; Lymphocytes # (auto) 0.95 K/uL (1.2-3.4); Lymphocytes % (auto) 17.5 %; Mean Corpuscular Hemoglobin 32.1 pg (25-34); Mean Corpuscular Hgb Conc 31.4 g/dL (32-36); Mean Platelet Volume 10.3 fL (7.4-10.4); Monocytes # (auto) 1.05 K/uL (0.11-0.59); Monocytes % (auto) 19.3 %; Neutrophils % (auto) 58.9 %; Platelet Count 126 K/uL (130-400); RDW Coefficient of Variation 16.2 % (11.5-14.5); RDW Standard Deviation 59.6 fL (36.4-46.3); Red Blood Count 3.43 M/uL (4.7-6.1); White Blood Count 5.43 K/uL (4.8-10.8)
[2019-11-26] MEDS: LEVOTHYROXINE SODIUM 100 MCG TABLET PO SCH (06:10)
[2019-11-26 06:50] LABS: BUN Creatinine Ratio 8.5 (10-20); Bilirubin Direct 0.1 mg/dl (0-0.2); Bilirubin,Total 0.5 mg/dl (0.2-1); Calcium 7.9 mg/dl (8.5-10.1); Creatinine Clr Calc Pharmacy 11.2 ml/min; Est GFR (African American) 9.4; Est GFR (Non-African American) 8.1; Phosphorus 5.2 mg/dl (2.5-4.9); Total Protein 5.5 gm/dl (6.4-8.2)
[2019-11-26] MEDS: KETOCONAZOLE 2% CR 15 GM TUBE EXT SCH (08:44)
[2019-11-26] MEDS: GABAPENTIN 300 MG CAP PO SCH ×2 (08:44→21:22)
[2019-11-26] MEDS: ESCITALOPRAM OXALATE ORAL SOLN 5 MG/5 ML PO SCH (08:44)
[2019-11-26] MEDS: FAMOTIDINE 10 MG TABLET PO SCH (08:44)
[2019-11-26] MEDS: APIXABAN 2.5 MG TAB PO SCH ×2 (08:44→21:20)
[2019-11-26] MEDS: BUMETANIDE 1 MG TAB PO SCH ×2 (08:44→17:51)
[2019-11-26] MEDS: DOCUSATE SODIUM 100 MG CAP PO SCH (08:44)
[2019-11-26] MEDS: INSULIN GLARGINE SOLOSTAR 100 UNITS/ML 3 ML PEN SQ SCH ×2 (08:45→21:24)
[2019-11-26] MEDS: INSULIN ASPART 100 UNITS/ML 3 ML PEN SC SCH ×4 (08:46→21:24)
[2019-11-26] MEDS: cefTRIAXone SODIUM 2,000 MG in DEXTROSE 5% 50 ML IV SCH (09:02)
--- NOTE | 2019-11-26 11:27 | Hospitalist Progress Note ---
Date of Service November 26, 2019 Assessment & Plan (1) Bacteremia: Lance Holder 84y/o M with PMH significant for dementia, ESRD on dialysis //Wednesday, and CHF; who presented to the hospital from [facility] Bacteremia of uncertain origin: - following hemodialysis on , blood is reported to have grown either gram-negative rods or gram-positive cocci from outside lab report - will await copy of final report for antibiotic narrowing; outpatient dialysis clinic closed on weekend so unable to receive records - Blood cultures x2 with no growth at 24hrs - urinalysis demonstrated trace protein, 2+ blood, + nitrite, and 2+ leuk esterase - Urine culture no growth at 24hrs - concern for infection of HD catheter as source of bacteremia; consulting vascular surgery for removal - continue vancomycin and Ceftriaxone ESRD: - On HD //Wednesday through Perm cath right thigh. - Mildly hyperkalemic at 4.0 now Last treatment ended an hour early - Nephrology consult: improved following completed dialysis from fistula, do not feel two access points needed at this point given concern for bacteremia - COVID-19 testing pending; patient is not a PUI Altered mental status: - patient with h/o dementia; continued improvement following completion of dialysis - previous reported obtundation while at [facility] - ?etiology 2/2 metabolic encephalopathy in setting of acute infection vs de lirium - Frequent orientation for delirium prevention - treatment of underlying infection to be continued Nonischemic Cardiomyopathy: - continue to hold metoprolol at this time - continue home bumex Coronary Artery Disease: - continue to hold metoprolol at this time - continue home atorvastatin - continue to monitor on telemetry HTN: - holding home regimen in setting of hypotension on arrival and borderline low BP overnight with concern of bacteremia A. Fib: - h/o rate controlled A. fib, HR maintained between 72-103 overnight despite holding of metoprolol - continue holding metoprolol at this time - Continue Eliquis T2DM: - Lantus to 18u BID with SSI for continued correction - Continue to monitor Diet: Heart Healthy/Renal diet DVT PPx: Apixaban Code: DNR/DNI Admission and Anticipated Discharge Date Admission Date: November 25, 2019 Anticipated date of discharge: 11/27/19 Supervising Physician Co-Signing Physician Notes Resident Physician Supervision Note: I independently interviewed and examined the patient and verified the harris history and physical, reviewed labs and image studies, discussed the case with the resident Dr. Santos and agree with the findings and care plan. Subjective Patient is awake and alert this morning, pleasantly unaware of recent events leading to being in the hospital. Able to express that he's hungry to nursing staff, and working with staff to eat. Denies fevers, chills, sweats, headaches, nausea, and vomiting. Review of Systems Review of Systems: All systems reviewed & are unremarkable except as noted in Subjective Physical Exam Constitutional: WD/WN, vitals as above Eyes: PERRL, conjunctivae normal, anicteric sclerae ENMT: external ear and nose normal, oropharynx normal Respiratory: normal respiratory effort, lungs clear to auscultation Cardiovascular: Rate/Rhythm: regular rate Heart Sounds: no gallop, no murmur and no cardiac rub Vessels: no JVD Extremities: no edema Gastrointestinal (Abdomen): normal bowel sounds, soft, nontender, no hepatosplenomegaly Skin: + ulcer (chronic appearing venous stasis ulcers of extremities) and + wound (numerous punctate wounds over ) Neurologic: moves all extremities; no focal motor deficits Psychiatric: Orientation: alert, oriented to person, oriented to place and cooperative; + not oriented to time Eye Contact: good eye contact Motor Behavior: + abnormal motor movements Results & Data Results & Data ([facility]) Vital Signs (Past 12 Hours) Vital Signs Temp Pulse Pulse Resp BP Pulse Ox 11/26/19 08:00 81 11/26/19 07:27 36.8 C 86 20 97/59 L 96 11/26/19 03:00 36.7 C 86 18 103/64 95 11/26/19 00:00 82 Laboratory Results 11/26/19 11/26/19 11/26/19 Range/Units 07:22 05:46 05:46 WBC (4.8-10.8) K/uL RBC (4.7-6.1) M/uL Hgb (14.0-18.0) g/dL Hct (42-52) % MCV (80-100) fL MCH (25-34) pg MCHC (32-36) g/dL RDW Std Deviation (36.4-46.3) fL RDW Coeff of Virginie (11.5-14.5) % Plt Count (130-400) K/uL MPV (7.4-10.4) fL Immature Gran % (Auto) % Neut % (Auto) % Lymph % (Auto) % [place] % (Auto) % Eos % (Auto) % Baso % (Auto) % Immature Gran # (Auto) (0.00-0.02) K/uL Neut # (Auto) (1.4-6.5) K/uL Lymph # (Auto) (1.2-3.4) K/uL [place] # (Auto) (0.11-0.59) K/uL Eos # (Auto) (0-0.5) K/uL Baso # (Auto) (0-0.2) K/uL Sodium 139 (136-145) mmol/L Potassium 4.0 D (3.5-5.1) mmol/L Chloride 103 (98-107) mmol/L Carbon Dioxide 27 (21-32) mmol/L Anion Gap 9.0 (3-11) BUN 50 H (7-18) mg/dl Creatinine 5.89 H* D (0.6-1.4) mg/dl Est Cr Clr Drug Dosing 11.2 ml/min Est GFR ( Amer) 9.4 Est GFR (Non-Af Amer) 8.1 BUN/Creatinine Ratio 8.5 L (10-20) Glucose 72 (70-99) mg/dl POC Glucose 84 (70-99) mg/dl Calcium 7.9 L (8.5-10.1) mg/dl Phosphorus 5.2 H (2.5-4.9) mg/dl Total Bilirubin 0.5 (0.2-1) mg/dl Direct Bilirubin 0.1 (0-0.2) mg/dl AST 57 H (15-37) U/L ALT 31 (12-78) U/L Alkaline Phosphatase 119 H (45-117) U/L Total Protein 5.5 L (6.4-8.2) gm/dl Albumin 2.0 L (3.4-5.0) gm/dl Nasal Screen MRSA (PCR) (Negative) Random Vancomycin 20.1 mcg/ml 11/26/19 11/25/19 11/25/19 Range/Units 05:46 20:04 16:37 WBC 5.43 (4.8-10.8) K/uL RBC 3.43 L (4.7-6.1) M/uL Hgb 11.0 L (14.0-18.0) g/dL Hct 35.0 L (42-52) % MCV 102.0 H (80-100) fL MCH 32.1 (25-34) pg MCHC 31.4 L (32-36) g/dL RDW Std Deviation 59.6 H (36.4-46.3) fL RDW Coeff of Virginie 16.2 H (11.5-14.5) % Plt Count 126 L (130-400) K/uL MPV 10.3 (7.4-10.4) fL Immature Gran % (Auto) 0.6 % Neut % (Auto) 58.9 % Lymph % (Auto) 17.5 % [place] % (Auto) 19.3 % Eos % (Auto) 3.5 % Baso % (Auto) 0.2 % Immature Gran # (Auto) 0.03 H (0.00-0.02) K/uL Neut # (Auto) 3.20 (1.4-6.5) K/uL Lymph # (Auto) 0.95 L (1.2-3.4) K/uL [place] # (Auto) 1.05 H (0.11-0.59) K/uL Eos # (Auto) 0.19 (0-0.5) K/uL Baso # (Auto) 0.01 (0-0.2) K/uL Sodium (136-145) mmol/L Potassium (3.5-5.1) mmol/L Chloride (98-107) mmol/L Carbon Dioxide (21-32) mmol/L Anion Gap (3-11) BUN (7-18) mg/dl Creatinine (0.6-1.4) mg/dl Est Cr Clr Drug Dosing ml/min Est GFR ( Amer) Est GFR (Non-Af Amer) BUN/Creatinine Ratio (10-20) Glucose (70-99) mg/dl POC Glucose 127 H 97 (70-99) mg/dl Calcium (8.5-10.1) mg/dl Phosphorus (2.5-4.9) mg/dl Total Bilirubin (0.2-1) mg/dl Direct Bilirubin (0-0.2) mg/dl AST (15-37) U/L ALT (12-78) U/L Alkaline Phosphatase (45-117) U/L Total Protein (6.4-8.2) gm/dl Albumin (3.4-5.0) gm/dl Nasal Screen MRSA (PCR) (Negative) Random Vancomycin mcg/ml 11/25/19 11/25/19 Range/Units 12:42 10:15 WBC (4.8-10.8) K/uL RBC (4.7-6.1) M/uL Hgb (14.0-18.0) g/dL Hct (42-52) % MCV (80-100) fL MCH (25-34) pg MCHC (32-36) g/dL RDW Std Deviation (36.4-46.3) fL RDW Coeff of Virginie (11.5-14.5) % Plt Count (130-400) K/uL MPV (7.4-10.4) fL Immature Gran % (Auto) % Neut % (Auto) % Lymph % (Auto) % [place] % (Auto) % Eos % (Auto) % Baso % (Auto) % Immature Gran # (Auto) (0.00-0.02) K/uL Neut # (Auto) (1.4-6.5) K/uL Lymph # (Auto) (1.2-3.4) K/uL [place] # (Auto) (0.11-0.59) K/uL Eos # (Auto) (0-0.5) K/uL Baso # (Auto) (0-0.2) K/uL Sodium (136-145) mmol/L Potassium (3.5-5.1) mmol/L Chloride (98-107) mmol/L Carbon Dioxide (21-32) mmol/L Anion Gap (3-11) BUN (7-18) mg/dl Creatinine (0.6-1.4) mg/dl Est Cr Clr Drug Dosing ml/min Est GFR ( Amer) Est GFR (Non-Af Amer) BUN/Creatinine Ratio (10-20) Glucose (70-99) mg/dl POC Glucose 145 H (70-99) mg/dl Calcium (8.5-10.1) mg/dl Phosphorus (2.5-4.9) mg/dl Total Bilirubin (0.2-1) mg/dl Direct Bilirubin (0-0.2) mg/dl AST (15-37) U/L ALT (12-78) U/L Alkaline Phosphatase (45-117) U/L Total Protein (6.4-8.2) gm/dl Albumin (3.4-5.0) gm/dl Nasal Screen MRSA (PCR) Negative (Negative) Random Vancomycin mcg/ml Medications Administered Current Inpatient Medications Acetaminophen (Tylenol) 650 mg PO Q4H PRN PRN Reason: pain/fever Stop: 12/25/19 06:37 Albuterol (Duoneb) 3 ml INH Q6 PRN PRN Reason: COUGH, WHEEZING , DYSPENIA Stop: 12/25/19 06:37 Apixaban (Eliquis) 2.5 mg PO BID DANA Stop: 12/25/19 08:59 Last Admin: 11/26/19 08:44 Dose: 2.5 mg Documented by: Atorvastatin Calcium (Lipitor) 80 mg PO HS [facility] Stop: 12/25/19 20:59 Last Admin: 11/25/19 20:42 Dose: 80 mg Documented by: Bisacodyl (Dulcolax) 10 mg CA DAILY PRN PRN Reason: Constipation Stop: 12/25/19 06:37 Bumetanide (Bumex) 2 mg PO BID17 [facility] Stop: 12/25/19 08:59 Last Admin: 11/26/19 08:44 Dose: 2 mg Documented by: Docusate Sodium (Colace) 100 mg PO DAILY [facility] Stop: 12/25/19 08:59 Last Admin: 11/26/19 08:44 Dose: 100 mg Documented by: Escitalopram Oxalate (Lexapro Soln) 7.5 mg PO DAILY [facility] Stop: 12/25/19 08:59 Last Admin: 11/26/19 08:44 Dose: 7.5 mg Documented by: Famotidine (Pepcid) 10 mg PO SuMoWeFr@0900 DANA Stop: 12/26/19 08:59 Last Admin: 11/26/19 08:44 Dose: 10 mg Documented by: Gabapentin (Neurontin) 600 mg PO BID [facility] Stop: 12/25/19 08:59 Last Admin: 11/26/19 08:44 Dose: 600 mg Documented by: Ceftriaxone Sodium 2,000 mg/ (Dextrose) 70 mls @ 100 mls/hr IV Q24H [facility]; Protocol Stop: 11/27/19 07:59 Last Infusion: 11/26/19 10:16 Dose: Infused Documented by: Insulin Aspart (Novolog Flexpen) 0 units SC ACHS [facility] Stop: 12/25/19 07:29 Last Admin: 11/26/19 08:46 Dose: Not Given Documented by: Insulin Glargine (Lantus Solostar Pen) 18 units SQ Q12 [facility] Stop: 12/25/19 08:59 Last Admin: 11/26/19 08:45 Dose: 18 units Documented by: Ketoconazole (Nizoral 2%) 1 appln EXT DAILY [facility] Stop: 12/05/19 08:59 Last Admin: 11/26/19 08:44 Dose: Not Given Documented by: Levothyroxine Sodium (Synthroid) 100 mcg PO DAILY@0700 [facility] Stop: 12/25/19 06:59 Last Admin: 11/26/19 06:10 Dose: 100 mcg Documented by: Miconazole Nitrate (Desenex) 1 appln EXT PRN PRN PRN Reason: Affected Skin Folds Stop: 12/25/19 10:21 Miscellaneous Information (Consult) 1 ea N/A UD PRN PRN Reason: Consult Stop: 12/25/19 06:37 Polyethylene Glycol (Miralax Powder Packet) 17 gm PO DAILY PRN PRN Reason: Constipation Stop: 12/25/19 06:37 Resident Activity Tracking Resident Involvement: Resident Care Provided Care Provided: Adult Hospital Medicine
--- NOTE | 2019-11-26 12:35 | Nephrology Progress Note ---
Date of Service November 26, 2019 Assessment & Plan (1) Bacteremia: Preliminary cultures obtained from the HD catheter at [facility] on 11/23/19 have grown gram negative rods. Unfortunately, micro results are not otherwise available at this time from [employer] labs. Hopefully speciation will be available tomorrow. Interestingly, cultures obtained at [facility] from peripheral draw were negative. AVF is functioning well. Ideally, I would like to have the dialysis catheter removed as soon as possible. Vascular surgery consulted. Lance remains on treatment with ceftriaxone and vancomycin. Wound culture +MRSA. Abx dosed appropriately for kidney function. Vanco level may be checked pre-HD. Source of infection unclear. Multiple wounds, no GI symptoms, Femoral dialysis catheter. Will attempt to access AVF for HD today. Hopefully, if AVF functions well, TDC may be able to be removed within the next few days. (2) End-stage renal disease (ESRD): TTS at [facility] under the care of Dr. Bah. EDW 105 kg. Tolerated a complete treatment yesterday. Volume status is acceptable. Recent complications with dialysis include progressive dementia requiring frequent reorientation and inability to express concerns during treatment. It appears that confusion likely resulted in infiltration of his fistula which was complicated by his anticoagulation. Overall this is a difficult situation. During a recent admission, I discussed this at length with the patient's the risks and benefits of anticoagulation moving forward need to be considered as well as overall goals of care. Dr. Bah had a follow up conversation regarding goals of care and overall prognosis yesterday. Admission and Anticipated Discharge Date Admission Date: November 25, 2019 Subjective Lance was much more awake this morning. Mental status appears to have returned to baseline. No fevers or chills. Tolerated HD well yesterday without com plications. AVF with excellent blood flow. General catheter exit site care provided. Review of Systems Review of Systems: All systems reviewed & are unremarkable except as noted in HPI & below Physical Exam Constitutional: + frail appearing; no acute distress and not ill appearing Eyes: + anicteric sclerae ENMT: Mouth: + dry oral mucous membranes; no oral mucosal abnormality Neck: normal visual inspection and trachea midline Respiratory: normal respiratory effort Cardiovascular: Extremities: + AV fistula R femoral HD catheter Gastrointestinal (Abdomen): Percussion/Palpation: abdomen soft; abdomen nontender Musculoskeletal: Extremities: no cyanosis and no clubbing Skin: + wound, + ecchymosis and + excoriations Results & Data ([facility]) Vital Signs (Past 12 Hours) Vital Signs Temp Pulse Pulse Pulse Resp BP Pulse Ox 11/26/19 11:35 36.3 C L 69 20 98/61 L 94 11/26/19 08:00 81 11/26/19 07:27 36.8 C 86 20 97/59 L 96 11/26/19 03:00 36.7 C 86 18 103/64 95 Laboratory Results Laboratory Results - last 24 hr 11/25/19 11/25/19 11/25/19 12:42 16:37 20:04 WBC RBC Hgb Hct MCV MCH MCHC RDW Std Deviation RDW Coeff of Virginie Plt Count MPV Immature Gran % (Auto) Neut % (Auto) Lymph % (Auto) [place] % (Auto) Eos % (Auto) Baso % (Auto) Immature Gran # (Auto) Neut # (Auto) Lymph # (Auto) [place] # (Auto) Eos # (Auto) Baso # (Auto) Sodium Potassium Chloride Carbon Dioxide Anion Gap BUN Creatinine Est Cr Clr Drug Dosing Est GFR ( Amer) Est GFR (Non-Af Amer) BUN/Creatinine Ratio Glucose POC Glucose 145 H 97 127 H Calcium Phosphorus Total Bilirubin Direct Bilirubin AST ALT Alkaline Phosphatase Total Protein Albumin Random Vancomycin 11/26/19 11/26/19 11/26/19 05:46 05:46 05:46 WBC 5.43 RBC 3.43 L Hgb 11.0 L Hct 35.0 L MCV 102.0 H MCH 32.1 MCHC 31.4 L RDW Std Deviation 59.6 H RDW Coeff of Virginie 16.2 H Plt Count 126 L MPV 10.3 Immature Gran % (Auto) 0.6 Neut % (Auto) 58.9 Lymph % (Auto) 17.5 [place] % (Auto) 19.3 Eos % (Auto) 3.5 Baso % (Auto) 0.2 Immature Gran # (Auto) 0.03 H Neut # (Auto) 3.20 Lymph # (Auto) 0.95 L [place] # (Auto) 1.05 H Eos # (Auto) 0.19 Baso # (Auto) 0.01 Sodium 139 Potassium 4.0 D Chloride 103 Carbon Dioxide 27 Anion Gap 9.0 BUN 50 H Creatinine 5.89 H* D Est Cr Clr Drug Dosing 11.2 Est GFR ( Amer) 9.4 Est GFR (Non-Af Amer) 8.1 BUN/Creatinine Ratio 8.5 L Glucose 72 POC Glucose Calcium 7.9 L Phosphorus 5.2 H Total Bilirubin 0.5 Direct Bilirubin 0.1 AST 57 H ALT 31 Alkaline Phosphatase 119 H Total Protein 5.5 L Albumin 2.0 L Random Vancomycin 20.1 11/26/19 11/26/19 07:22 11:28 WBC RBC Hgb Hct MCV MCH MCHC RDW Std Deviation RDW Coeff of Virginie Plt Count MPV Immature Gran % (Auto) Neut % (Auto) Lymph % (Auto) [place] % (Auto) Eos % (Auto) Baso % (Auto) Immature Gran # (Auto) Neut # (Auto) Lymph # (Auto) [place] # (Auto) Eos # (Auto) Baso # (Auto) Sodium Potassium Chloride Carbon Dioxide Anion Gap BUN Creatinine Est Cr Clr Drug Dosing Est GFR ( Amer) Est GFR (Non-Af Amer) BUN/Creatinine Ratio Glucose POC Glucose 84 118 H Calcium Phosphorus Total Bilirubin Direct Bilirubin AST ALT Alkaline Phosphatase Total Protein Albumin Random Vancomycin PG Care Time/CCT Total # of Minutes Spent Total Time Spent with Patient: Total time spent is greater than 50% in coordination of care (as documented) at patient's floor/unit and/or counseling patient: Coding Level of Care Code 85841 Subseq Hosp Care Lvl 3 Diagnoses Bacteremia R78.81 End-stage renal disease (ESRD) N18.6
--- NOTE | 2019-11-26 13:21 | Pharmacy Report ---
Pharmacy Abx Dose Short Note - Date of Service November 26, 2019 - Assessment & Plan Assessment 84 year old M receiving IV Vancomycin and Ceftriaxone (not a consult) for treatment of bacteremia (per lab at [facility] - Gram positive cocci) Day # 2 of antimicrobial therapy. * Received Vancomycin 2000mg (~20mg/kg) IV x 1 yesterday, 11/24 @ 1710 * Vancomycin being dosed prn random levels due to ESRD on HD status * Awaiting copy of outpatient microbiology; no growth in blood culture drawn at [facility]. 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 Plan Vancomycin * Random level of 20.1 mcg/mL is slightly above upper end of therapeutic range. Next HD not yet ordered, but likely will be Monday 11/27. It appears patient is producing a small amount of urine (250 mL was recorded yesterday). It is possible that he may clear some Vancomycin. Therefore, will recheck random level with labs tomorrow to determine if another dose is needed given severity of infection. *No repeat dose today as do not anticipate level will significantly drop to subtherapeutic range* * Goal trough level for bacteremia : 15 to 20 mcg/mL * Random level ordered for: 11/27/19 with AM labs Pharmacy will continue to follow and will adjust dose/frequency as necessary. Thank you.
[2019-11-26] MEDS: ATORVASTATIN 40 MG TAB PO SCH (21:21)
[2019-11-27] MEDS: LEVOTHYROXINE SODIUM 100 MCG TABLET PO SCH (06:35)
[2019-11-27 08:06] LABS: Basophils # (auto) 0.02 K/uL (0-0.2); Basophils % (auto) 0.3 %; Eosinophils # (auto) 0.28 K/uL (0-0.5); Eosinophils % (auto) 4.8 %; Hematocrit (blood only) 37.7 % (42-52); Hemoglobin 11.6 g/dL (14.0-18.0); Immature Granulocytes # (auto) 0.03 K/uL (0.00-0.02); Immature Granulocytes % (auto) 0.5 %; Lymphocytes # (auto) 1.07 K/uL (1.2-3.4); Lymphocytes % (auto) 18.2 %; Mean Corpuscular Hemoglobin 31.2 pg (25-34); Mean Corpuscular Hgb Conc 30.8 g/dL (32-36); Mean Corpuscular Volume 101.3 fL (80-100); Mean Platelet Volume 10.5 fL (7.4-10.4); Monocytes # (auto) 1.12 K/uL (0.11-0.59); Monocytes % (auto) 19.1 %; Neutrophils # (auto) 3.35 K/uL (1.4-6.5); Neutrophils % (auto) 57.1 %; Platelet Count 139 K/uL (130-400); RDW Coefficient of Variation 15.9 % (11.5-14.5); RDW Standard Deviation 58.5 fL (36.4-46.3); Red Blood Count 3.72 M/uL (4.7-6.1); White Blood Count 5.87 K/uL (4.8-10.8)
[2019-11-27] MEDS ORDERED: GABAPENTIN 300 MG CAP PO SCH (09:00)
[2019-11-27] MEDS: FAMOTIDINE 10 MG TABLET PO SCH (09:20)
[2019-11-27] MEDS: INSULIN ASPART 100 UNITS/ML 3 ML PEN SC SCH ×2 (09:20→13:15)
[2019-11-27] MEDS: DOCUSATE SODIUM 100 MG CAP PO SCH (09:22)
[2019-11-27] MEDS: BUMETANIDE 1 MG TAB PO SCH ×2 (09:22→17:01)
[2019-11-27] MEDS: KETOCONAZOLE 2% CR 15 GM TUBE EXT SCH (09:23)
--- NOTE | 2019-11-27 09:23 | Consultation ---
Date of Consultation November 27, 2019 Assessment & Plan (1) Bacteremia: Pt currently with bacteremia and R femoral permcath in place. Pt scheduled for permcath removal later this AM. His LUE AVF is functioning and is usable for access. Patient was seen, examined, and chart reviewed. Agree with exam and treatment plan of the Vascular PA. We will plan on PermCath removal today. I have discussed the risks options and benefits of the procedure with the patient's . The patient's understands the risks options and benefits and agrees to the procedure. History of Present Illness Reason for Consultation: infected permcath Attending Physician: Victorino Lynn DO History of Present Illness 84 yo m with multiple chronic medical problems, including ESRD on HD, dementia, A fib, cardiomyopathy, CAD, CHF, DMII, HTN, hypercholesterolemia, prostate ca, venous stasis, GERD, anemia, admitted with sepsis and found to have klebsiella bacteremia, seen in consultation today for removal of his permcath. Pt known to Dr Acosta's vascular practice for HD access, currently with a functioning LUE HeRO graft. This was infiltrated approx 3 months ago and pt developed a large hematoma which eventually required evacuation d/t necrosis, so he was undergoing HD through R femoral permcath in meantime. Pt with dementia and unable to give relevant hx. Denies any complaints. Allergies Allergy/AdvReac Type Severity Reaction Status Date / Time clindamycin AdvReac Mild Nausea Verified 11/25/19 00:09 Home Medications Home Medications Medication Instructions Recorded Confirmed Type Calcium 600 + D(3) 1 cap PO QAM 09/21/19 11/25/19 History acetaminophen [Tylenol Extra 1,000 mg PO Q8 PRN 09/21/19 11/25/19 History Strength] acetaminophen [Tylenol] 650 mg PO Q4 PRN 09/21/19 11/25/19 History ascorbic acid (vitamin C) [Vitamin 1,000 mg PO QAM 09/21/19 11/25/19 History C] atorvastatin [Lipitor] 80 mg PO HS 09/21/19 11/25/19 History bumetanide 2 mg PO BID 09/21/19 11/25/19 History cholecalciferol (vitamin D3) 25 mcg PO QAM 09/21/19 11/25/19 History [Vitamin D3] docusate sodium [Colace] 100 mg PO DAILY 09/21/19 11/25/19 History escitalopram oxalate [Lexapro] 7.5 mg PO QAM 09/21/19 11/25/19 History famotidine 10 mg PO 4XWK 09/21/19 11/25/19 History insulin aspart U-100 [Novolog 5 unit SUBCUT TIDM 09/21/19 11/25/19 History U-100 Insulin aspart] ipratropium-albuterol 3 ml INHALATION Q6 PRN 09/21/19 11/25/19 History levothyroxine 100 mcg PO DAILY@0700 09/21/19 11/25/19 History nitroglycerin [Nitrostat] 0.4 mg SUBLINGUAL UD PRN 09/21/19 11/25/19 History oxymetazoline [Afrin Sinus 2 spray INTRANASAL Q8 PRN 09/21/19 11/25/19 History (oxymetazoline)] polyethylene glycol 3350 [Miralax] 17 g PO DAILY PRN 09/21/19 11/25/19 History Basaglar KwikPen U-100 Insulin 25 unit SUBCUT Q12 10/04/19 11/25/19 History apixaban [Eliquis] 2.5 mg PO BID 11/16/19 11/25/19 History cephalexin 500 mg PO DAILY 11/16/19 11/25/19 History epoetin beta, methoxy peg [Mircera] 100 mcg IV UD 11/16/19 11/25/19 History gabapentin 600 mg PO BID 11/16/19 11/25/19 History iron sucrose 50 mg IV WK 11/16/19 11/25/19 History bisacodyl [Dulcolax (bisacodyl)] 10 mg GA DIRECTED PRN 11/25/19 11/25/19 History hydrocodone-acetaminophen [Trenary] 1 tab PO Q6H PRN 11/25/19 11/25/19 History insulin aspart U-100 5 unit SUBCUT 3XWK 11/25/19 11/25/19 History ketoconazole 1 applic TOPICAL DAILY 11/25/19 11/25/19 History metoprolol succinate 50 mg PO 3XWK 11/25/19 11/25/19 History pediatric multivitamin 1 tab PO DAILY 11/25/19 11/25/19 History sodium polystyrene sulfonate 120 ml PO DAILY 11/25/19 11/25/19 History Patient History Medical History Actinic keratitis ARMS - SCALY; LEGS DEVELOPED OPEN WOUNDS STILL HAS SOME OPEN AREAS ON LEGS Age-related cognitive decline Alzheimer's dementia Anemia in chronic kidney disease (CKD) Broken shoulder left shoulder feb 2019 Chronic kidney disease, stage IV (severe) [facility]) Compression fracture of lumbar vertebra Coronary artery disease S/P CABG X 4 (~2002) Diabetes IDDM Dry eye syndrome of bilateral lacrimal glands GERD (gastroesophageal reflux disease) CONTROLLED H/O prostate cancer brachytherapy treatment. Hemodialysis patient FISTULA LEFT ARM. receiving diaylsis Wednesday, & Wednesday @ [facility] History of kidney stones History of left bundle branch block (LBBB) HTN (hypertension) Hypercholesteremia Hypothyroid Ischemic cardiomyopathy s/p insertion of pacer/icd 2013. Stable. EF 65-70% on 09/2019 echo. Lipoprotein deficiency Obesity Permanent atrial fibrillation Asymptomatic per cardio 10/24/18. Rate controlled on BB, anticoagulated with Eliquis. Secondary hyperparathyroidism Sleep apnea NO LONGER USES CPAP Spinal stenosis Venous stasis Surgical History H/O four vessel coronary artery bypass graft CABG X 4 (~2002) H/O total knee replacement RIGHT Hematoma LEFT ARM FISTULA History of brachytherapy History of cardioversion unsuccessful History of colonoscopy History of surgical removal of pilonidal cyst Hx of hemorrhoidectomy Presence of implantable cardioverter-defibrillator (ICD) PPM/ICD IMPLANTED 2013; [employer] LAST PACER CHECK S/P arteriovenous (AV) fistula creation LUE S/P dialysis catheter insertion Family History Sister Kidney stones Son Kidney stones Mother Diabetes Hypertension Heart disease Aunt Colon cancer Denies family history of Ovarian cancer Prostate cancer Myocardial infarction Breast cancer Social History Preferred Language: Indonesian Communication Ability: Impaired Visual Impairment: Limited Hearing Ability: Normal Fire Protection Equipment Technician Required: No Beliefs That Will Affect Care: None marital status: Current Living Situation: Correction Current Living Situation Comment: [facility] current occupational status: retired Feels Safe at Home: Yes Smoking Status: Unknown if ever smoked Hx Alcohol Use: No Hx Substance Use: No (unknown) Review of Systems Review of Systems: Unobtainable due to cognitive status Physical Exam Constitutional: WD/WN, vitals as above + ill appearing, + obese, + disheveled and cooperative; not in distress Neck: trachea midline, no thyromegaly Respiratory: normal respiratory effort Auscultation: + diminished lung sounds Cardiovascular: Rate/Rhythm: + irregularly irregular Vessels: femoral pulses present and radial pulses present; + abnormal peripheral pulses, + posterior tibial pulses abnormal and + dorsalis pedis pulses abnormal Extremities: normal capillary refill, + pedal edema, + edema, + vascular access device (R thigh, nontender, no erythema) and + AV fistula (+thrill/bruit LUE) Gastrointestinal (Abdomen): normal bowel sounds, soft, nontender, no hepatosplenomegaly Musculoskeletal: Extremities: + abnormal strength (general weakness, nothing focal) Skin: no rashes, warm and dry + wound (L arm with shallow open wound, good granulation noted. no odor or erythema) Neurologic: moves all extremities and + confused; no focal motor deficits Psychiatric: Orientation: alert, oriented to person and cooperative; + not oriented to place and + not oriented to time Affect: euthymic affect Results & Data Vital Signs (Past 12 Hours) Vital Signs Temp Pulse Pulse Resp BP Pulse Ox 11/27/19 07:00 36.4 C L 68 20 117/71 100 11/27/19 03:00 36.5 C 73 20 109/62 100 11/26/19 22:49 36.4 C L 74 20 111/66 98
[2019-11-27] MEDS: ESCITALOPRAM OXALATE ORAL SOLN 5 MG/5 ML PO SCH (09:24)
[2019-11-27] MEDS: INSULIN GLARGINE SOLOSTAR 100 UNITS/ML 3 ML PEN SQ SCH (09:30)
[2019-11-27 09:36] LABS: Albumin Globulin Ratio 0.6 (0.9-2); Albumin Level 2.1 gm/dl (3.4-5.0); BUN Creatinine Ratio 9.4 (10-20); Bilirubin,Total 0.4 mg/dl (0.2-1); Calcium 7.8 mg/dl (8.5-10.1); Creatinine Clr Calc Pharmacy 8.6 ml/min; Est GFR (African American) 6.8; Est GFR (Non-African American) 5.8; Globulin 3.5 gm/dl (2.5-4.0); Potassium 4.2 mmol/L (3.5-5.1); Total Protein 5.6 gm/dl (6.4-8.2)
--- NOTE | 2019-11-27 10:36 | Nephrology Progress Note ---
Date of Service November 27, 2019 Assessment & Plan (1) Bacteremia: Cultures from HD catheter at [facility] on 11/23/19 have grown multidrug resistant klebesiella pneumonia. Intermediate susceptibility to gentamicin. Catheter to be removed today. Plan of care discussed with vascular surgery. Leathaquis held pending catheter removal. Lance remains on treatment with ceftriaxone and vancomycin. Wound culture +MRSA. Consider ID consultation regarding continued antibiotic therapy. AVF is functioning well at last HD. Abx dosed appropriately for kidney function. Vanco level may be checked pre-HD. Next HD tomorrow. (2) End-stage renal disease (ESRD): TTS at [facility]. EDW 105 kg. Volume status is acceptable. BP appropriate. Recent complications with dialysis include progressive dementia requiring frequent reorientation and inability to express concerns during treatment. It appears that confusion likely resulted in infiltration of his fistula which was complicated by his anticoagulation. Overall this is a difficult situation. Du ring a recent admission, I discussed this at length with the patient's the risks and benefits of anticoagulation moving forward need to be considered as well as overall goals of care. Dr. Bah had a follow up conversation regarding goals of care and overall prognosis last week. Admission and Anticipated Discharge Date Admission Date: November 25, 2019 Subjective No acute events overnight. Lance was more awake today. He denies any pain. No fevers or chills. Breathing comfortably. Review of Systems Review of Systems: Unobtainable due to mental health condition Physical Exam Constitutional: + frail appearing; no acute distress and not ill appearing Eyes: + anicteric sclerae ENMT: Mouth: + dry oral mucous membranes; no oral mucosal abnormality Neck: normal visual inspection and trachea midline Respiratory: normal respiratory effort Auscultation: + crackles Cardiovascular: Heart Sounds: normal S1, normal S2 and + murmur Extremities: + AV fistula Gastrointestinal (Abdomen): Percussion/Palpation: abdomen soft; abdomen nontender Musculoskeletal: Extremities: no cyanosis and no clubbing Skin: + wound, + ecchymosis and + excoriations Results & Data ([facility]) Vital Signs (Past 12 Hours) Vital Signs Temp Pulse Pulse Resp BP Pulse Ox 11/27/19 07:00 36.4 C L 68 20 117/71 100 11/27/19 03:00 36.5 C 73 20 109/62 100 11/26/19 22:49 36.4 C L 74 20 111/66 98 Laboratory Results Laboratory Results - last 24 hr 11/25/19 11/26/19 11/26/19 10:15 11:28 16:29 WBC RBC Hgb Hct MCV MCH MCHC RDW Std Deviation RDW Coeff of Virginie Plt Count MPV Immature Gran % (Auto) Neut % (Auto) Lymph % (Auto) Gilliam % (Auto) Eos % (Auto) Baso % (Auto) Immature Gran # (Auto) Neut # (Auto) Lymph # (Auto) Gilliam # (Auto) Eos # (Auto) Baso # (Auto) Sodium Potassium Chloride Carbon Dioxide Anion Gap BUN Creatinine Est Cr Clr Drug Dosing Est GFR ( Amer) Est GFR (Non-Af Amer) BUN/Creatinine Ratio Glucose POC Glucose 118 H 131 H Calcium Total Bilirubin AST ALT Alkaline Phosphatase Total Protein Albumin Globulin Albumin/Globulin Ratio Random Vancomycin COVID-19 PCR SARS-CoV-2 RNA (RT-PCR) NEGATIVE 11/26/19 11/27/19 11/27/19 20:18 05:53 06:00 WBC 5.87 RBC 3.72 L Hgb 11.6 L Hct 37.7 L MCV 101.3 H MCH 31.2 MCHC 30.8 L RDW Std Deviation 58.5 H RDW Coeff of Virginie 15.9 H Plt Count 139 MPV 10.5 H Immature Gran % (Auto) 0.5 Neut % (Auto) 57.1 Lymph % (Auto) 18.2 Gilliam % (Auto) 19.1 Eos % (Auto) 4.8 Baso % (Auto) 0.3 Immature Gran # (Auto) 0.03 H Neut # (Auto) 3.35 Lymph # (Auto) 1.07 L Gilliam # (Auto) 1.12 H Eos # (Auto) 0.28 Baso # (Auto) 0.02 Sodium Potassium Chloride Carbon Dioxide Anion Gap BUN Creatinine Est Cr Clr Drug Dosing Est GFR ( Amer) Est GFR (Non-Af Amer) BUN/Creatinine Ratio Glucose POC Glucose 213 H Calcium Total Bilirubin AST ALT Alkaline Phosphatase Total Protein Albumin Globulin Albumin/Globulin Ratio Random Vancomycin 15.9 COVID-19 PCR SARS-CoV-2 RNA (RT-PCR) 11/27/19 11/27/19 11/27/19 06:00 07:32 09:35 WBC RBC Hgb Hct MCV MCH MCHC RDW Std Deviation RDW Coeff of Virginie Plt Count MPV Immature Gran % (Auto) Neut % (Auto) Lymph % (Auto) Gilliam % (Auto) Eos % (Auto) Baso % (Auto) Immature Gran # (Auto) Neut # (Auto) Lymph # (Auto) Gilliam # (Auto) Eos # (Auto) Baso # (Auto) Sodium 134 L Potassium 4.2 Chloride 99 Carbon Dioxide 24 Anion Gap 11.0 BUN 72 H Creatinine 7.74 H* D Est Cr Clr Drug Dosing 8.6 Est GFR ( Amer) 6.8 Est GFR (Non-Af Amer) 5.8 BUN/Creatinine Ratio 9.4 L Glucose 121 H POC Glucose 114 H Calcium 7.8 L Total Bilirubin 0.4 AST 58 H ALT 40 Alkaline Phosphatase 121 H Total Protein 5.6 L Albumin 2.1 L Globulin 3.5 Albumin/Globulin Ratio 0.6 L Random Vancomycin COVID-19 PCR Pending SARS-CoV-2 RNA (RT-PCR) PG Care Time/CCT Total # of Minutes Spent Total Time Spent with Patient: Total time spent is greater than 50% in c oordination of care (as documented) at patient's floor/unit and/or counseling patient: Coding Level of Care Code 58741 Subseq Hosp Care Lvl 3 Diagnoses Bacteremia R78.81 End-stage renal disease (ESRD) N18.6
--- NOTE | 2019-11-27 11:39 | Operative Report ---
Post Operative Report Pre & Post Diagnosis Operation Date: 11/27/19 09:20 Pre-Op Diagnosis: Infected Perm Catheter Post-Op Diagnosis: Infected Perm Catheter I identified the patient and participated in the time-out.: Yes Procedure Operation Date: 11/27/19 09:20 Actual Procedures p Perm Catheter Removal - Rex Acosta MD Surgeon Rex Acosta MD Die Casting Machine Operator None Estimated Blood Loss 0 Findings Consistent with Post-Op Diagnosis Specimens Tip was sent for culture Complications none Disposition Accompanied Patient To Recovery: No Disposition: Recovery Room Indications This is an 84-year-old gentleman with an infected PermCath. He does have a functioning fistula in his arm. Remove the PermCath was recommended. I have discussed the risks options and benefits of the procedure with the patient's . The patient's understands the risks options and benefits and agrees to the procedure. Description of Procedure The patient was taken to the angio suite and placed in the supine position. The patient was identified and a timeout performed. The right groin and catheter were prepped and draped in a sterile manner. The permcath and cuff were completely removed. It slid out very easily due to the infection. Pressure was then applied and adequate hemostasis was obtained. A sterile dressing was then applied. The patient left the operation room in satisfactory condition and tolerated the procedure well. All needle and sponge counts were correct at the end of the procedure. I attest to the content of the Intraoperative Record and any orders documented therein. Any exceptions are noted below.
[2019-11-27] MEDS ORDERED: GENTAMICIN CONSULT ACTIVE PRN (12:32)
[2019-11-27] MEDS ORDERED: GENTAMICIN SULFATE 420 MG in DEXTROSE 5% 100 ML IV SCH (12:45)
[2019-11-27] MEDS ORDERED: [UNRECOGNIZED DRUG - REMARK] PRN (13:11)
[2019-11-27] MEDS ORDERED: SODIUM CHLORIDE 0.9% IV SCH (14:00)
[2019-11-27] MEDS ORDERED: CEFTAZIDIME AVIBACTAM IV SCH (14:00)
--- NOTE | 2019-11-27 14:19 | Pharmacy Report ---
Pharmacy Abx Dose Short Note - Date of Service November 27, 2019 - Assessment & Plan Assessment 84 year old M receiving Vancomycin and Avycaz for treatment of Skin & Soft Tissue infection and Bacteremia * R foot wound culture from 11/24/2019 grew MRSA with Vanc PANFILO = 1. * Although not viewable yet, Blood cultures from [facility] are growing Klebsiella pneumoniae which is resistant to all antibiotics; therefore, patient was started on avycaz this afternoon * Patient is afebrile and does not have any leukocytosis. Patient has ESRD on IHD Tue,Thur,Sat. Next scheduled HD session is tomorrow (11/27). Patient was taken to OR today to have dialysis catheter replaced. Catheter cultures are pending. * Following a 2000 mg Loading dose on 11/25/2019 at 1710, the patient had a random level of 20.1 mcg/mL on 11/26/2019 at 0546. Plan Vancomycin * Random level of 15.9 mcg/mL is therapeutic. Spoke with RN who states patient is anuric. Next HD session is scheduled for tomorrow and via patient specific kinetic calculations, I believe the trough will be < 15 mcg/mL by 1400 today. Will give a one time dose of 750 mg at 1430 today to ensure trough is maintained at > 15 mcg/mL given MRSA infection. * Goal trough remains 15 - 20 mcg/mL * Random level ordered for tomorrow AM as pre-HD level Avycaz * 0.94 gm IV every 24 hours is appropriate per renal function and indication Pharmacy will continue to follow and will adjust dose/frequency as necessary. Shawn orjas.
[2019-11-27] MEDS ORDERED: VANCOMYCIN HCL 750 MG in SODIUM CHLORIDE 0.9% 250 ML IV ONE (14:30)
--- NOTE | 2019-11-27 16:36 | Discharge Summary ---
Date of Service November 27, 2019 Admission HPI Per Admitting Provider Lance Holder is an 84yo C male with history of ESRD on HD, Dementia, CHF presenting from [facility] with reports of lethargy. Patient unable to provide details of history due to underlying dementia and AMS - details obtained through review of chart and discussion with ER staff. Mr. Holder had HD performed today and was reportedly acting strange and lethargic and had a syncopal episode. Labs were sent from dialysis which suggested sepsis, blood cultures positive for GPC. VS from [facility] records with T=99.1, PZ=283, BP=90/50. ER Course: Daptomycin, Imipenem, NSS x 500mL Admission Exam Per Admitting Provider General: patient somnolent, arousable, answers some questions, oriented to self only, follows commands Skin: warm, dry, multiple areas of dry skin, flaking, skin tears on forearms HEENT: NC/AT, pupils small, reactive bilaterally,anicteric sclera, conjunctiva without injection, external ear normal to inspection and nontender, nares patent, moist mucus membranes, dentition intact, no oropharyngeal lesions, neck supple, trachea midline, no LAD, no thyromegaly, no JVD Heart: +S1/S2, regular, no m/r/g Lungs: equal air entry bilaterally, no rales/rhonchi/wheezes Abd: +BS, soft, NT/ND, no masses/organomegaly/ascites Ext: warm, 2+ pulses in UE/LE bilaterally, no clubbing/cyanosis or edema, HD catheter in place right anterior thigh Neuro:somnolent, arousable, oriented x 1, moving all extremities Principal Diagnosis positive blood culture for MDR klebsiella Discharge Exam Constitutional WD/WN, vitals as above Eyes PERRL, conjunctivae normal, anicteric sclerae ENMT external ear and nose normal, oropharynx normal Neck normal visual inspection Respiratory normal respiratory effort, lungs clear to auscultation Cardiovascular Heart Sounds: no murmur and no cardiac rub Vessels: no JVD Gastrointestinal (Abdomen) normal bowel sounds, soft, nontender, no hepatosplenomegaly Skin + wound (lower extremity wounds with bandages that were c/d/i) Psychiatric Orientation: oriented to person; + not oriented to place and + not oriented to time Eye Contact: + fair eye contact Affect: euthymic affect Discharge Data Allergies Allergy/AdvReac Type Severity Reaction Status Date / Time clindamycin AdvReac Mild Nausea Verified 11/25/19 00:09 Consultations 11/25/19 02:38 ED Decision to Admit Stat 11/25/19 06:38 Consult Nephrology Routine 11/26/19 11:25 Consult Vascular Surgery Routine Procedures Performed Operation Date: 11/27/19 09:20 Actual Procedures p Perm Catheter Removal - Rex Acosta MD Hospital Course (1) AMS (altered mental status): GCS 12 in ER. Main presentation at retirement was really unresponsiveness. Currently 15 although remains confused as per family discussion this is likely his baseline. Suspect cause from glucose lability (elevated when EMS arrived) and hypotension (although no significantly different from his usual). Unclear diagnosis made of sepsis on admission as patient did not have a WBC, HR 72 and was afebrile. Blood cultures negative @ 48 hours therefore antibiotics switched back to his usual oral chronic suppression with levaquin and keflex. TTE unremarkable, U/A without concern for acute UTI. Ammonia high end normal - unlikely contributory. CXR with no acute process. Head CT with no acute intracranial abnormality. Flu neg Family was updated. Patient has returned to his baseline or close to it. Will have patient discharged to a SNF. (2) Hypoglycemia: Lability of glucose as possible cause of above. Will likely need insulin adjustments on discharge but will defer this until discharge tomorrow. Likely lability due Appreciate pharmacy glycemic control and discussed ongoing regimen with PharmD Danita Lackey (3) Dementia: baseline confusion history of delirium (4) Hyperkalemia: Secondary to ESRD on dialysis. Management by nephrology with dialysis and Kayexalate PRN. (5) ESRD (end stage renal disease) on dialysis: ESRD On hemodialysis Wednesday, , Wednesday. Wednesday dialysis performed here. Appreciate nephrology management of this. (6) Anemia in chronic kidney disease (CKD): Stable. Management by nephrology. (7) Peripheral arterial disease: Not for vascular interventions as per recent vascular outpatient note. Continue Eliquis and atorvastatin (8) Diabetic ulcer of left heel: Chronic ulcers looked after by wound clinic. Currently on Keflex and Levaquin as per prior cultures. Appreciate wound care management of this (9) Diabetic ulcer of right heel: as above (10) Coronary artery disease: - Cont Eliquis, statin and ASA as prescribed - Continue home meds bumex and metoprolol after discussion with Dr Celis (11) Diabetes mellitus type 2, insulin dependent: Appreciate pharmacy glycemic control. Very labile glucose levels suspect due to changes in his diet. Changes in altered mental state likely related to these labile glucose values. HbA1C not accurate in dialysis patients. (12) Hypothyroid: TSH WNL. Continue levothyroxine 100 mcg PO daily (13) DVT prophylaxis: Continue home dose of Eliquis (14) Goals of care, counseling/discussion: Patient to remain full resuscitation while admitted. Goals of care discussion planned with Dr Bah next week as outpatient. (15) Bacteremia: Lance Holder 84y/o M with PMH significant for dementia, ESRD on dialysis //Wednesday, with CHF; who presented to the hospital from [facility] with Bacteremia of uncertain origin, afebrile, normal heart rate, and no elevated WBC. Bacteremia - MDR Klebsiella - following hemodialysis on , blood is reported to have grown klebsiella pneumonia griffin resistant, patient was on empiric vancomycin and ceftriaxone these were discontinued since they were not covering for the klebsiella and he was clinically improving. - Blood cultures x2 with no growth at 48 hrs - concern for infection of HD catheter as source of bacteremia; consulted vascular surgery and catheter was removed on 11/26 - urinalysis demonstrated trace protein, 2+ blood, + nitrite, and 2+ leuk esterase - Urine culture no growth ESRD - On HD //Wednesday through left arm fistula. - Mildly hyperkalemic at 4.0 now - Nephrology consulted: improved following completed dialysis from fistula - patient will need dialysis tomorrow Wednesday11/28/2019 Altered mental status - patient with h/o dementia; continued improvement following completion of dialysis - previous reported obtundation while at [facility] - Frequent orientation for delirium prevention Nonischemic Cardiomyopathy - continue home bumex - Metoprolol was held due to hypotension during inpatient stay, reinitiate as an outpatient Coronary Artery Disease - continue home Metoprolol and Atorvastatin HTN - continue home medications Atrial fibrillation - h/o rate controlled A. fib, HR maintained between 70's-100's - restart Metoprolol - Continue Eliquis T2DM - continue home medications Total Time Total Time Spent Total Time Spent (In Minutes): >30 Discharge Plan Discharge Items Patient Disposition: Trans Resident Long-Term Care Reason For Visit: BACTEREMIA Discharge Diagnosis: Bacteremia Activity: Per Instructions section Non-emergency contact: Primary Care Provider Call non-emergency contact if: your symptoms worsen Follow-up/Referrals: Cari Brewer at [place] [Primary Care Provider] - Diet: Regular Addtl Attending Provider Instructions: Lance Holder 84y/o M with PMH significant for dementia, ESRD on dialysis //Wednesday, with CHF; who presented to the hospital from [facility] with Bacteremia of uncertain origin, afebrile, normal heart rate, and no elevated WBC. - following hemodialysis on , blood is reported to have grown klebsiella pneumonia griffin resistant, patient was on empiric vancomycin and ceftriaxone these were discontinued since they were not covering for the klebsiella and he was clinically improving. - Blood cultures x2 with no growth at 48 hrs - concern for infection of HD catheter as source of bacteremia; consulted vascular surgery and catheter was removed - urinalysis demonstrated trace protein, 2+ blood, + nitrite, and 2+ leuk esterase - Urine culture no growth ESRD: - On HD //Wednesday through left arm fistula. - Mildly hyperkalemic at 4.0 now - Nephrology consulted: improved following completed dialysis from fistula - patient will need dialysis tomorrow Wednesday11/28/2019 Altered mental status: - patient with h/o dementia; continued improvement following completion of dialysis - previous reported obtundation while at [facility] - Frequent orientation for delirium prevention Nonischemic Cardiomyopathy: - continue home bumex and metoprolol Coronary Artery Disease: - continue home Metoprolol and Atorvastatin HTN: - continue home medications A. Fib: - h/o rate controlled A. fib, HR maintained between 70's-100's - restart Metoprolol - Continue Eliquis T2DM: - continue home medications Pending Studies at Discharge: Yes Studies:: blood cultures Stand-Alone Forms: My [employer] Skilled Items Patient informed of condition?: Yes DNR: Yes Discharge Level of Care: Skilled Communicable Disease: No Discharge Prognosis: Improving Lines: None Urinary Catheter: No Medications and DC Order Prescriptions: Continued Basaglar KwikPen U-100 Insulin 100 unit/mL (3 mL) insulin pen 25 unit SUBCUT Q12 RF: 0 metoprolol succinate 50 mg Tablet Extended Release 24 Hr 50 mg PO 3XWK RF: 0 sodium polystyrene sulfonate 15 gram/60 mL Suspension 120 ml PO DAILY RF: 0 hydrocodone-acetaminophen [Gail] 5-325 mg Tablet 1 tab PO Q6H PRN (Reason: pain 7-10) RF: 0 insulin aspart U-100 100 unit/mL (3 mL) Insulin Pen 5 unit SUBCUT 3XWK RF: 0 ketoconazole 2 % Cream 1 applic TOPICAL DAILY RF: 0 bisacodyl [Dulcolax (bisacodyl)] 10 mg Suppository 10 mg SD DIRECTED PRN (Reason: Constipation) RF: 0 pediatric multivitamin Tablet,Chewable 1 tab PO DAILY RF: 0 atorvastatin [Lipitor] 80 mg tablet 80 mg PO HS RF: 0 ascorbic acid (vitamin C) [Vitamin C] 1,000 mg Tablet 1,000 mg PO QAM RF: 0 acetaminophen [Tylenol] 325 mg Tablet 650 mg PO Q4 PRN (Reason: ALL LEVELS OF PAIN/TEMP>100) RF: 0 ipratropium-albuterol 0.5 mg-3 mg(2.5 mg base)/3 mL solution for nebulization 3 ml INHALATION Q6 PRN (Reason: COUGH, WHEEZING , DYSPENIA) RF: 0 bumetanide 2 mg tablet 2 mg PO BID RF: 0 famotidine 10 mg Tablet 10 mg PO 4XWK RF: 0 polyethylene glycol 3350 [Miralax] 17 gram Powder In Packet 17 g PO DAILY PRN (Reason: Constipation) RF: 0 levothyroxine 100 mcg tablet 100 mcg PO DAILY@0700 RF: 0 insulin aspart U-100 [Novolog U-100 Insulin aspart] 100 unit/mL solution 5 unit subcut TIDM RF: 0 nitroglycerin [Nitrostat] 0.4 mg Tablet, Sublingual 0.4 mg sublingual UD PRN (Reason: Chest Pain) RF: 0 docusate sodium [Colace] 100 mg Capsule 100 mg PO DAILY RF: 0 oxymetazoline [Afrin Sinus (oxymetazoline)] 0.05 % [place],Non-Aerosol 2 spray INTRANASAL Q8 PRN (Reason: Nasal Congestion) RF: 0 escitalopram oxalate [Lexapro] 5 mg tablet 7.5 mg PO QAM RF: 0 Calcium 600 + D(3) 600 mg calcium- 200 unit Capsule 1 cap PO QAM RF: 0 acetaminophen [Tylenol Extra Strength] 500 mg Tablet 1,000 mg PO Q8 PRN (Reason: Pain) RF: 0 cholecalciferol (vitamin D3) [Vitamin D3] 25 mcg (1,000 unit) Tablet 25 mcg PO QAM RF: 0 cephalexin 500 mg Capsule 500 mg PO DAILY RF: 0 gabapentin 300 mg Capsule 600 mg PO BID RF: 0 iron sucrose 50 mg iron/2.5 mL Solution 50 mg IV WK RF: 0 Mircera 100 mcg/0.3 mL Syringe 100 mcg IV UD RF: 0 Eliquis 2.5 mg tablet 2.5 mg PO BID RF: 0 Discharge Orders: Discharge Order (Routine); Ordered 11/27/19 Ordered By: Jeremias Berger Admission Data Admit Date/Time: 11/25/19 03:15 Attending Provider: Victorino Lynn Admit Provider: Anika Garcia Primary Care Provider: Cari Brewer [place] Other Providers: Anika Garcia ; Homar Celis ; Rex Acosta Other Interventions: Discharge Summary Assessment (RN) Last Done: 11/27/19 16:51 DC Date/Time DO NOT enter until pt leaves facility: 11/27/19 17:00 Supervising Physician Co-Signing Physician Notes I personally examined the patient and verified all harris points of history and exam, discussed case, and agree with decision making with Dr Brewer. no meaningful HPI or ROS obtainable. case d/w nephrology. vitals noted nad laying in bed breathing unlabored no accessory muscles good effort. skin no rashes no pallor or icterus. multiple minor areas of bruising and some wounds dressed, no tracking erythema gram negative (MDR klebsiella) on blood culture prior to admission - due to delay in being able to get reliable information, he was on what amounted to ineffective treatment for the duration of his hospital stay, were the bacteria on blood culture from outpt truly an infection - however, clinically he improved/did not deteriorate/has shown no infectious-type sequellae. further, repeat blood cultures drawn at admission have been no growth to date. while literature was reviewed and medications such as IV fosfomycin, tigecycline, or avycaz could be considered should the infection be legitimate, it fits much more that this was a culture of colonization/false positive and not indicative of bacteremia - therefore treatment would be of more harm than good. stable for return to SNF, ongoing observation in that setting. otherwise as above. Resident Activity Tracking Resident Involvement: Resident Care Provided Care Provided: Adult [facility]
--- NOTE | 2019-11-27 16:55 | Billing Data ---
Date of Service November 27, 2019 Coding Level of Care Code D/C Day Management >30 mins
== END 2019-11-27 17:00 ==
LOC: ED 23:30 → INTOOBSV 11-25 03:15 → SUATTDRO 11-25 03:15 → 2W 11-25 03:15

== ENCOUNTER 2020-03-15 15:31 | Inpatient (IN) ==
[2020-03-15] MEDS ORDERED: SODIUM CHLORIDE 0.9% 1000ML 500 ML IV ONE (16:17)
--- NOTE | 2020-03-15 16:23 | Emergency Department Note ---
History of Present Illness General Chief complaint: Altered Mental Status Stated complaint: AMS, Time Seen by Provider: 03/15/20 16:03 Source: RN notes reviewed Mode of arrival: EMS Limitations: altered mental status History of Present Illness Provider complaint: Unresponsive/altered mental status The patient presents via ambulance altered/unresponsive. The patient provides no information. He resides at a local intermediate. He has history of A. fib, dialysis dependent renal failure, dementia as well as insulin-dependent diabetic. The patient has been reportedly lethargic for the past week. I did review the [facility] note that came with the patient by Suzanne Monge PA-C. Her note reports that the patient has been lethargic for about a week and more recently developed hematuria for the past 5 days. His urinalysis was grossly positive for a urinary tract infection. He produces very little urine due to his dialysis. The urine culture is growing Klebsiella pneumonia, that has sensitivity to avibactam. He also has a foot wound growing out MRSA. The patient was sent here for further evaluation as he has developed the new gross hematuria. He is reportedly a DNR. There is not been any vomiting or diarrhea. The note reports that the patient does have some ongoing lower abdominal pain for the past few days. His blood pressure is chronically low. He did not take any of his morning medications. Home Medications Home Medications Medication Instructions Recorded Confirmed Type Calcium 600 + D(3) 1 cap PO QAM 09/21/19 03/15/20 History acetaminophen [Tylenol Extra 1,000 mg PO Q8 PRN 09/21/19 03/15/20 History Strength] acetaminophen [Tylenol] 650 mg PO Q4 PRN MDD 3G 09/21/19 03/15/20 History ascorbic acid (vitamin C) [Vitamin 1,000 mg PO QAM 09/21/19 03/15/20 History C] atorvastatin [Lipitor] 80 mg PO HS 09/21/19 03/15/20 History cholecalciferol (vitamin D3) 25 mcg PO QAM 09/21/19 03/15/20 History [Vitamin D3] docusate sodium [Colace] 100 mg PO BID 09/21/19 03/15/20 History famotidine 10 mg PO 4XWK 09/21/19 03/15/20 History levothyroxine 100 mcg PO DAILY@0700 09/21/19 03/15/20 History nitroglycerin [Nitrostat] 0.4 mg SUBLINGUAL UD PRN 09/21/19 03/15/20 History oxymetazoline [Afrin Sinus 2 spray INTRANASAL Q8 PRN 09/21/19 03/15/20 History (oxymetazoline)] Basaglar KwikPen U-100 Insulin 18 unit SUBCUT Q12 10/04/19 03/15/20 History Eliquis 2.5 mg PO BID 11/16/19 03/15/20 History gabapentin 600 mg PO BID 11/16/19 03/15/20 History bisacodyl [Dulcolax (bisacodyl)] 10 mg GA DIRECTED PRN 11/25/19 03/15/20 History pediatric multivitamin 1 tab PO QPM 11/25/19 03/15/20 History calcium acetate 667 mg PO UD 02/21/20 03/15/20 History escitalopram oxalate [Lexapro] 7.5 mg PO QAM 02/21/20 03/15/20 History metoprolol succinate 12.5 mg PO BID 02/21/20 03/15/20 History polyethylene glycol 3350 17 g PO DAILY PRN 02/21/20 03/15/20 History oxycodone 5 mg PO Q8H PRN #20 tab 02/23/20 03/15/20 Rx insulin aspart U-100 [Novolog 1 sliding scale dose SUBCUT ACHS 03/15/20 03/15/20 History PenFill U-100 Insulin] insulin aspart U-100 [Novolog 5 unit SUBCUT .3XW/UD 03/15/20 03/15/20 History U-100 Insulin aspart] Allergies Allergy/AdvReac Type Severity Reaction Status Date / Time clindamycin AdvReac Mild Nausea Verified 03/15/20 17:40 Past Med/Surg History Medical History Actinic keratitis ARMS - SCALY; LEGS DEVELOPED OPEN WOUNDS STILL HAS SOME OPEN AREAS ON LEGS Age-related cognitive decline Alzheimer's dementia Anemia in chronic kidney disease (CKD) Atrial fibrillation Broken shoulder left shoulder feb 2019 Chronic kidney disease, stage IV (severe) [facility] ([place]) Compression fracture of lumbar vertebra Coronary artery disease S/P CABG X 4 (~2002) Dementia Diabetes IDDM Dry eye syndrome of bilateral lacrimal glands GERD (gastroesophageal reflux disease) CONTROLLED H/O prostate cancer brachytherapy treatment. Hemodialysis patient FISTULA LEFT ARM. receiving diaylsis Wednesday, & Wednesday @ [facility] History of kidney stones History of left bundle branch block (LBBB) HTN (hypertension) Hypercholesteremia Hypothyroid Ischemic cardiomyopathy s/p insertion of pacer/icd 2013. Stable. EF 65-70% on 09/2019 echo. Lipoprotein deficiency senior living resident Obesity Permanent atrial fibrillation Asymptomatic per cardio 10/24/18. Rate controlled on BB, anticoagulated with Eliquis. Secondary hyperparathyroidism Sleep apnea NO LONGER USES CPAP Spinal stenosis Venous stasis Surgical History H/O four vessel coronary artery bypass graft CABG X 4 (~2002) H/O total knee replacement RIGHT Hematoma LEFT ARM FISTULA History of brachytherapy History of cardioversion unsuccessful History of colonoscopy History of surgical removal of pilonidal cyst Hx of hemorrhoidectomy Presence of implantable cardioverter-defibrillator (ICD) PPM/ICD IMPLANTED 2013; [employer] LAST PACER CHECK S/P arteriovenous (AV) fistula creation LUE S/P dialysis catheter insertion Family History Sister Kidney stones Son Kidney stones Mother Diabetes Hypertension Heart disease Aunt Colon cancer Denies family history of Ovarian cancer Prostate cancer Myocardial infarction Breast cancer Social History Smoking Status: Former smoker Second Hand Exposure: No; Hx Alcohol Use: No Hx Substance Use: No Preferred Language: Yoruba Communication Ability: Effective Visual Impairment: Limited Hearing Ability: Normal Technical Information Specialist Required: No Beliefs That Will Affect Care: None marital status: Current Living Situation: Correction Current Living Situation Comment: [facility] current occupational status: retired Feels Safe at Home: Yes Assistive Devices: Denture - Upper Review of Systems Unobtainable due to cognitive status Physical Exam Vital Signs Vital Signs - 24 hr 03/15/20 15:31 03/15/20 15:45 03/15/20 15:58 Temperature 37.0 C Temperature Source Axillary Pulse Rate 87 88 82 Pulse Rate from SpO2 Sensor Pulse Rhythm Respiratory Rate 21 14 18 Respiratory Effort / Characteristics Non-Labored Spontaneous Respiratory Depth Normal Respiratory Pattern Regular Blood Pressure 83/52 L 89/49 L Blood Pressure Mean 62 59 Pulse Oximetry 100 Oxygen Delivery Method Room Air Sepsis Recent Fever Within 48 Hours Yes Sepsis New/Unexplained Change in Mental Status Yes Sepsis Action Taken by Nursing Physician Notified 03/15/20 16:00 03/15/20 16:01 03/15/20 16:09 Temperature Temperature Source Pulse Rate 77 90 93 H Pulse Rate from SpO2 Sensor 84 87 Pulse Rhythm Respiratory Rate 15 20 19 Respiratory Effort / Characteristics Respiratory Depth Respiratory Pattern Blood Pressure 87/50 L 90/47 L Blood Pressure Mean 70 69 Pulse Oximetry 90 90 Oxygen Delivery Method Sepsis Recent Fever Within 48 Hours Sepsis New/Unexplained Change in Mental Status Sepsis Action Taken by Nursing 03/15/20 16:15 03/15/20 16:26 03/15/20 16:46 Temperature Temperature Source Pulse Rate 88 90 73 Pulse Rate from SpO2 Sensor 86 72 Pulse Rhythm Regular Respiratory Rate 19 20 18 Respiratory Effort / Characteristics Respiratory Depth Respiratory Pattern Blood Pressure 78/42 L 90/51 L Blood Pressure Mean 57 62 Pulse Oximetry 92 100 94 Oxygen Delivery Method Room Air Sepsis Recent Fever Within 48 Hours Sepsis New/Unexplained Change in Mental Status Sepsis Action Taken by Nursing 03/15/20 17:00 03/15/20 17:05 03/15/20 17:15 Temperature Temperature Source Pulse Rate 75 83 88 Pulse Rate from SpO2 Sensor 81 82 85 Pulse Rhythm Respiratory Rate 18 19 16 Respiratory Effort / Characteristics Respiratory Depth Respiratory Pattern Blood Pressure 75/43 L 99/49 L 91/47 L Blood Pressure Mean 57 57 63 Pulse Oximetry 99 97 99 Oxygen Delivery Method Sepsis Recent Fever Within 48 Hours Sepsis New/Unexplained Change in Mental Status Sepsis Action Taken by Nursing 03/15/20 17:30 03/15/20 17:45 Temperature Temperature Source Pulse Rate 81 74 Pulse Rate from SpO2 Sensor 82 75 Pulse Rhythm Respiratory Rate 17 16 Respiratory Effort / Characteristics Respiratory Depth Respiratory Pattern Blood Pressure 92/52 L 98/49 L Blood Pressure Mean 66 60 Pulse Oximetry 99 99 Oxygen Delivery Method Sepsis Recent Fever Within 48 Hours Sepsis New/Unexplained Change in Mental Status Sepsis Action Taken by Nursing CONSTITUTIONAL/VITAL SIGNS: Reviewed / noted above. GENERAL: Non-toxic in appearance. INTEGUMENTARY: Warm, dry, and [place]. HEAD: Normocephalic. EYES: without scleral icterus or trauma. ENT/OROPHARYNX: clear and moist. LYMPHADENOPATHY/NECK: Is supple without lymphadenopathy or meningismus. RESPIRATORY: Lungs clear and equal but diminished. CARDIOVASCULAR: Regular rate and rhythm. GI/ABDOMEN: Soft and mild diffuse tenderness with deep palpation. EXTREMITIES: Warm and well perfused. NEUROLOGICAL: Patient does have some muscle tone in his upper extremities with movement. He also briefly responds to painful stimuli with groaning. At one point he was asked if he was hungry. He said "what do you got?", But then fell asleep. MUSCULOSKELETAL: Chronically ill-appearing TRIAGE NURSING DOCUMENTATION REVIEWED. Course Administered Medications Discontinued Medications Sodium Chloride (Nss 1000ml) 500 mls @ 999 mls/hr IV .Q31M ONE Stop: 03/15/20 16:47 Last Infusion: 03/15/20 17:34 Dose: 0 mls/hr Documented by: [id number] Admin: 03/15/20 16:50 Dose: 999 mls/hr Documented by: [id number] Ceftazidime/Avibactam 0.94 gm/ (Sodium Chloride) 54.512 mls @ 28 mls/hr IV NOW STA Stop: 03/15/20 18:23 Last Admin: 03/15/20 17:40 Dose: 28 mls/hr Documented by: [id number] Medical Decision Making Differential Diagnosis Differential includes acute coronary syndrome, myocardial infarction, CVA, TIA, anemia, infection, pneumonia, UTI, pyelonephritis, poor nutrition, dehydration, electrolyte disturbance,hypoglycemia. Medical Records Attestation: I reviewed the patient's medical records. Home Medications Current Medication List: was personally reviewed by me Laboratory Data Attestation: I reviewed the patient's lab results. Result diagrams: 03/15/20 16:00 03/15/20 16:00 Lab Results 03/15/20 03/15/20 03/15/20 Range/Units 16:00 16:00 16:00 WBC 7.91 (4.8-10.8) K/uL RBC 3.11 L (4.7-6.1) M/uL Hgb 9.4 L (14.0-18.0) g/dL Hct 32.5 L (42-52) % MCV 104.5 H (80-100) fL MCH 30.2 (25-34) pg MCHC 28.9 L (32-36) g/dL RDW Std Deviation 62.1 H (36.4-46.3) fL RDW Coeff of Virginie 16.3 H (11.5-14.5) % Plt Count 192 (130-400) K/uL MPV 10.1 (7.4-10.4) fL Immature Gran % (Auto) 0.9 % Neut % (Auto) 70.5 % Lymph % (Auto) 12.0 % [place] % (Auto) 14.5 % Eos % (Auto) 2.0 % Baso % (Auto) 0.1 % Neut # (Auto) 5.57 (1.4-6.5) K/uL Lymph # (Auto) 0.95 L (1.2-3.4) K/uL Hardin # (Auto) 1.15 H (0.11-0.59) K/uL Eos # (Auto) 0.16 (0-0.5) K/uL Baso # (Auto) 0.01 (0-0.2) K/uL Immature Gran # (Auto) 0.07 H (0.00-0.02) K/uL PT 14.2 H (9.0-12.0) Seconds INR 1.4 H (0.9-1.1) APTT 37.6 H (21.0-31.0) Seconds PTT Ratio 1.3 Sodium 139 (136-145) mmol/L Potassium 3.5 (3.5-5.1) mmol/L Chloride 98 (98-107) mmol/L Carbon Dioxide 33 H (21-32) mmol/L Anion Gap 8.0 (3-11) BUN 34 H (7-18) mg/dl Creatinine 5.10 H* (0.6-1.4) mg/dl Est Cr Clr Drug Dosing 12.8 ml/min Est GFR ( Amer) 11.1 Est GFR (Non-Af Amer) 9.6 BUN/Creatinine Ratio 6.6 L (10-20) Glucose 217 H (70-99) mg/dl Lactate (0.4-2.0) mmol/L Calcium 9.0 (8.5-10.1) mg/dl Magnesium 2.3 (1.8-2.4) mg/dl Total Bilirubin 0.5 (0.2-1) mg/dl AST 109 H (15-37) U/L ALT 27 (12-78) U/L Alkaline Phosphatase 202 H (45-117) U/L Ammonia (11-32) umol/L Troponin I 0.034 (0-0.045) ng/ml Total Protein 6.1 L (6.4-8.2) gm/dl Albumin 1.8 L (3.4-5.0) gm/dl Globulin 4.3 H (2.5-4.0) gm/dl Albumin/Globulin Ratio 0.4 L (0.9-2) 03/15/20 03/15/20 Range/Units 16:50 16:50 WBC (4.8-10.8) K/uL RBC (4.7-6.1) M/uL Hgb (14.0-18.0) g/dL Hct (42-52) % MCV (80-100) fL MCH (25-34) pg MCHC (32-36) g/dL RDW Std Deviation (36.4-46.3) fL RDW Coeff of Virginie (11.5-14.5) % Plt Count (130-400) K/uL MPV (7.4-10.4) fL Immature Gran % (Auto) % Neut % (Auto) % Lymph % (Auto) % Hard[place] % (Auto) % Eos % (Auto) % Baso % (Auto) % Neut # (Auto) (1.4-6.5) K/uL Lymph # (Auto) (1.2-3.4) K/uL Hardin # (Auto) (0.11-0.59) K/uL Eos # (Auto) (0-0.5) K/uL Baso # (Auto) (0-0.2) K/uL Immature Gran # (Auto) (0.00-0.02) K/uL PT (9.0-12.0) Seconds INR (0.9-1.1) APTT (21.0-31.0) Seconds PTT Ratio Sodium (136-145) mmol/L Potassium (3.5-5.1) mmol/L Chloride (98-107) mmol/L Carbon Dioxide (21-32) mmol/L Anion Gap (3-11) BUN (7-18) mg/dl Creatinine (0.6-1.4) mg/dl Est Cr Clr Drug Dosing ml/min Est GFR ( Amer) Est GFR (Non-Af Amer) BUN/Creatinine Ratio (10-20) Glucose (70-99) mg/dl Lactate 3.0 H* (0.4-2.0) mmol/L Calcium (8.5-10.1) mg/dl Magnesium (1.8-2.4) mg/dl Total Bilirubin (0.2-1) mg/dl AST (15-37) U/L ALT (12-78) U/L Alkaline Phosphatase (45-117) U/L Ammonia 14.6 (11-32) umol/L Troponin I (0-0.045) ng/ml Total Protein (6.4-8.2) gm/dl Albumin (3.4-5.0) gm/dl Globulin (2.5-4.0) gm/dl Albumin/Globulin Ratio (0.9-2) Imaging Data Radiologist's Impression: CT scan of the head: IMPRESSION: 1. No acute intracranial abnormality. 2. 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 ECG Data Attestation: I personally reviewed and interpreted this ECG as follows: Indication: + weakness Rate (beats per minute): 89 Rhythm: + other (Paced ventricular rhythm) ECG ST segments: no ST elevation ECG Findings: no PVCs MDM Narrative Patient presents as above and is mostly unresponsive other than painful stimuli. The patient has a recent hematuria and a recent urinalysis that shows Klebsiella pneumonia with limited sensitivities. He also has a MRSA infection of his foot. He provides no additional information. He was sent here for further evaluation and care from the intermediate where he resides. Details above. The patient's hemoglobin is 9.4. His white blood cell count was normal. His chemistry panel is unremarkable. Glucose is 217. BUN is 34 and creatinine is 5.1. He is dialysis dependent. Troponin is negative. Ammonia level is no rmal. The patient was treated with IV ceftazidime/Avibactam, 500 cc of normal saline IV as well as IV vancomycin 2 g. The patient will be seen by the hospitalist for further inpatient evaluation and care. Impression & Plan Altered mental status, Acute UTI Discharge Plan Visit Data Chief Complaint: Altered Mental Status Stated Complaint: AMS, ED Provider: Homar Ritchie Discharge Problem: Altered mental status, Acute UTI Patient Disposition: Being Evaluated by Hospitalist Forms Stand Alone Forms: [facility] Prescriptions Prescriptions: No Action Sergo Arndt U-100 Insulin 100 unit/mL (3 mL) insulin pen 18 unit SUBCUT Q12 RF: 0 bisacodyl [Dulcolax (bisacodyl)] 10 mg Suppository 10 mg GA DIRECTED PRN (Reason: Constipation) RF: 0 pediatric multivitamin Tablet,Chewable 1 tab PO QPM RF: 0 polyethylene glycol 3350 17 gram Powder In Packet 17 g PO DAILY PRN (Reason: Constipation) RF: 0 metoprolol succinate 25 mg Tablet Extended Release 24 Hr 12.5 mg PO BID RF: 0 escitalopram oxalate [Lexapro] 5 mg Tablet 7.5 mg PO QAM RF: 0 calcium acetate 667 mg Tablet 667 mg PO UD RF: 0 oxycodone 5 mg tablet 5 mg PO Q8H PRN (Reason: pain) Qty: 20 RF: 0 atorvastatin [Lipitor] 80 mg tablet 80 mg PO HS RF: 0 ascorbic acid (vitamin C) [Vitamin C] 1,000 mg Tablet 1,000 mg PO QAM RF: 0 acetaminophen [Tylenol] 325 mg Tablet 650 mg PO Q4 MDD 3G PRN (Reason: ALL LEVELS OF PAIN/TEMP>100) RF: 0 famotidine 10 mg Tablet 10 mg PO 4XWK RF: 0 levothyroxine 100 mcg tablet 100 mcg PO DAILY@0700 RF: 0 nitroglycerin [Nitrostat] 0.4 mg Tablet, Sublingual 0.4 mg sublingual UD PRN (Reason: Chest Pain) RF: 0 docusate sodium [Colace] 100 mg Capsule 100 mg PO BID RF: 0 oxymetazoline [Afrin Sinus (oxymetazoline)] 0.05 % [place],Non-Aerosol 2 spray INTRANASAL Q8 PRN (Reason: Nasal Congestion) RF: 0 Calcium 600 + D(3) 600 mg calcium- 200 unit Capsule 1 cap PO QAM RF: 0 acetaminophen [Tylenol Extra Strength] 500 mg Tablet 1,000 mg PO Q8 PRN (Reason: Pain) RF: 0 cholecalciferol (vitamin D3) [Vitamin D3] 25 mcg (1,000 unit) Tablet 25 mcg PO QAM RF: 0 gabapentin 300 mg Capsule 600 mg PO BID RF: 0 Eliquis 2.5 mg tablet 2.5 mg PO BID RF: 0 insulin aspart U-100 [Novolog PenFill U-100 Insulin] 100 unit/mL Cartridge 1 sliding scale dose SUBCUT ACHS RF: 0 insulin aspart U-100 [Novolog U-100 Insulin aspart] 100 unit/mL Solution 5 unit SUBCUT .3XW/UD RF: 0 Referrals Referrals: Cari Brewer Venetia [Primary Care Provider] -
[2020-03-15] MEDS ORDERED: CEFTAZIDIME AVIBACTAM IV STA (16:27)
[2020-03-15] MEDS ORDERED: SODIUM CHLORIDE 0.9% IV STA (16:27)
[2020-03-15] MEDS ORDERED: VANCOMYCIN HCL 2,000 MG in SODIUM CHLORIDE 0.9% 500 ML IV STA (16:29)
[2020-03-15 16:53] LABS: INR 1.4 (0.9-1.1); Partial Thromboplastin Ratio 1.3; Partial Thromboplastin Time 37.6 Seconds (21.0-31.0); Prothrombin Time 14.2 Seconds (9.0-12.0)
[2020-03-15 16:57] LABS: Albumin Globulin Ratio 0.4 (0.9-2); Albumin Level 1.8 gm/dl (3.4-5.0); BUN Creatinine Ratio 6.6 (10-20); Bilirubin,Total 0.5 mg/dl (0.2-1); Creatinine Clr Calc Pharmacy 12.8 ml/min; Est GFR (African American) 11.1; Est GFR (Non-African American) 9.6; Globulin 4.3 gm/dl (2.5-4.0); Magnesium 2.3 mg/dl (1.8-2.4); Potassium 3.5 mmol/L (3.5-5.1); Total Protein 6.1 gm/dl (6.4-8.2); Troponin I 0.034 ng/ml (0-0.045)
--- NOTE | 2020-03-15 17:00 | CT Scan Report ---
CT head/brain wo con CLINICAL HISTORY: 85 years-old Male with ams. Acutely altered mental status TECHNIQUE: Multiple axial CT images of the head were obtained without contrast. A dose lowering tech nique was utilized adhering to the principles of ALARA. CT DOSE: 614.27 mGy.cm COMPARISON: Head CT 11/16/2019 FINDINGS: No acute intracranial hemorrhage, midline shift, intra-axial mass, hydrocephalus, territorial ischemi a or abnormal extra-axial collection. 1.5 cm calcified meningioma adjacent to left frontal lobe is un changed. Age-related involutional changes. Mild patchy white matter hypodensities favor chronic micro vascular ischemic disease. Cerebral vascular calcifications. The calvarium is intact. Prior bilateral lens replacement. The paranasal sinuses, mastoid air cells, and middle ear cavities are clear. IMPRESSION: 1. No acute intracranial abnormality. 2. 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 ACT 112: Negative or not required by law. The above report was generated using voice recognition software. It may contain grammatical, syntax o r spelling errors. Electronically signed by: Joselo Govea M.D. 03/15/2020 4:59 PM
[2020-03-15 17:12] LABS: Basophils # (auto) 0.01 K/uL (0-0.2); Basophils % (auto) 0.1 %; Eosinophils # (auto) 0.16 K/uL (0-0.5); Hematocrit (blood only) 32.5 % (42-52); Hemoglobin 9.4 g/dL (14.0-18.0); Immature Granulocytes # (auto) 0.07 K/uL (0.00-0.02); Immature Granulocytes % (auto) 0.9 %; Lymphocytes # (auto) 0.95 K/uL (1.2-3.4); Mean Corpuscular Hemoglobin 30.2 pg (25-34); Mean Corpuscular Hgb Conc 28.9 g/dL (32-36); Mean Corpuscular Volume 104.5 fL (80-100); Mean Platelet Volume 10.1 fL (7.4-10.4); Monocytes # (auto) 1.15 K/uL (0.11-0.59); Monocytes % (auto) 14.5 %; Neutrophils # (auto) 5.57 K/uL (1.4-6.5); Neutrophils % (auto) 70.5 %; Platelet Count 192 K/uL (130-400); RDW Coefficient of Variation 16.3 % (11.5-14.5); RDW Standard Deviation 62.1 fL (36.4-46.3); Red Blood Count 3.11 M/uL (4.7-6.1); White Blood Count 7.91 K/uL (4.8-10.8)
--- NOTE | 2020-03-15 17:26 | XRay Report ---
XR chest 1V portable CLINICAL HISTORY: SEPSIS COMPARISON STUDY: Chest radiograph 11/25/2019. FINDINGS: A left internal jugular catheter, left subclavian by ventricular pacer and median sternotom y wires are noted. Lung volumes are mildly diminished. This is unchanged. There is no pneumothorax or pleural effusion. Cardiomegaly without evidence for pulmonary edema. Calcified nodules within the luis ngs are noted. There is no consolidation to suggest pneumonia. IMPRESSION: No acute cardiopulmonary findings. No change in appearance of the chest. ACT 112: Negative or not required by law. Electronically signed by: Neto Aguilar M.D. 03/15/2020 5:25 PM
--- NOTE | 2020-03-15 18:10 | History & Physical Report ---
Date of Service March 15, 2020 Assessment & Plan (1) Acute metabolic encephalopathy: (2) Complicated UTI (urinary tract infection): This is an 85yo M with a PMH of ESRD on HD, IDDM, dementia, chronic atrial fibrillation, CAD and other medical problems as below who presents from [facility] with lethargy x 1 week with multidrug-resistant Klebsiella urinary tract infection. -Outpatient UTI with 03/11 culture growing multidrug-resistant Klebsiella pneumonia -Was evaluated by Dr. Wood of ID via [employer] for assistance on multi drug resistant Klebsiella UTI. Recommendation made for ER and further treatment with IV antibiotics -Also concern for colonization of multidrug-resistant bacteria on culture due to very limited urine output with ESRD -Started on ceftazidime in the ED. Repeat UA and urine culture. Lactic acid initially elevated at 3 (downtrending to 2.5). Continue 500 ml of gentle IV fluids for a total of 1 L and trend lactic acid -Consulted [facility]. Appreciate further recommendations (3) Diabetic ulcer of left heel associated with diabetes mellitus due to underlying condition: (4) MRSA infection: Follows with wound care clinic for left heel ulcer, recent surgical debridement of L heel ulcer by Dr. Galdamez on 02/21/20 -Surgical wound culture grew MRSA. 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 Appreciate ID recommendation (5) Diabetes mellitus type 2, insulin dependent: Basal/bolus insulin while in-patient -BSG AC HS (6) ESRD (end stage renal disease) on dialysis: HD MWF. [facility] nephro consulted (7) Atrial fibrillation: Will continue IV Lopressor 2.5 mg every 6 hours overnight with hold parameters while n.p.o. Holding p.o. medication. Continue Eliquis in AM (8) Hypothyroidism: IV levothyroxine 50 mcg QAM while n.p.o. DVT Ppx: Eliquis Code status: DNR PCP: [facility] at [facility] Dispo: Ad[facility]. Discharge planning ordered. Patient seen in collaboration with Dr. Soto. Please see addendum. History of Present Illness Chief Complaint: Hematuria, lethargy Primary Care Provider: [facility] This is an 85yo M with a PMH of ESRD on HD, IDDM, dementia, chronic atrial fibrillation, CAD and other medical problems as below who presents from [facility] with lethargy x 1 week following surgical debridement of L heel ulcer. Has also developed gross hematuria over the past 5 days, per long term documentation. UA grossly positive for potential UTI with 03/11 culture growing multidrug-resistant Klebsiella pneumonia, carbon pending maze producing organism. Has very limited urine output due to end-stage renal disease. Per outpatient note, no fever, chills, vomiting or diarrhea but has had some lower abdominal pain for the past few days. Refused all medications this morning. BP low at baseline, 90s/50s. Unable to obtain ROS beyond that due to significant dementia. Was evaluated by Dr. Wood of infectious disease via Ask-a-Doc for assistance on multi drug resistant Klebsiella UTI. Patient also known to ID service due to history of MRSA in left lower extremity. Recommendation made for ER and further treatment with IV antibiotics. Allergies Allergy/AdvReac Type Severity Reaction Status Date / Time clindamycin AdvReac Mild Nausea Verified 03/15/20 17:40 Home Medications Home Medications Medication Instructions Recorded Confirmed Type Calcium 600 + D(3) 1 cap PO QAM 09/21/19 03/15/20 History acetaminophen [Tylenol Extra 1,000 mg PO Q8 PRN 09/21/19 03/15/20 History Strength] acetaminophen [Tylenol] 650 mg PO Q4 PRN MDD 3G 09/21/19 03/15/20 History ascorbic acid (vitamin C) [Vitamin 1,000 mg PO QAM 09/21/19 03/15/20 History C] atorvastatin [Lipitor] 80 mg PO HS 09/21/19 03/15/20 History cholecalciferol (vitamin D3) 25 mcg PO QAM 09/21/19 03/15/20 History [Vitamin D3] docusate sodium [Colace] 100 mg PO BID 09/21/19 03/15/20 History famotidine 10 mg PO 4XWK 09/21/19 03/15/20 History levothyroxine 100 mcg PO DAILY@0700 09/21/19 03/15/20 History nitroglycerin [Nitrostat] 0.4 mg SUBLINGUAL UD PRN 09/21/19 03/15/20 History oxymetazoline [Afrin Sinus 2 spray INTRANASAL Q8 PRN 09/21/19 03/15/20 History (oxymetazoline)] Basaglar KwikPen U-100 Insulin 18 unit SUBCUT Q12 10/04/19 03/15/20 History Eliquis 2.5 mg PO BID 11/16/19 03/15/20 History gabapentin 600 mg PO BID 11/16/19 03/15/20 History bisacodyl [Dulcolax (bisacodyl)] 10 mg DC DIRECTED PRN 11/25/19 03/15/20 History pediatric multivitamin 1 tab PO QPM 11/25/19 03/15/20 History calcium acetate 667 mg PO UD 02/21/20 03/15/20 History escitalopram oxalate [Lexapro] 7.5 mg PO QAM 02/21/20 03/15/20 History metoprolol succinate 12.5 mg PO BID 02/21/20 03/15/20 History polyethylene glycol 3350 17 g PO DAILY PRN 02/21/20 03/15/20 History oxycodone 5 mg PO Q8H PRN #20 tab 02/23/20 03/15/20 Rx insulin aspart U-100 [Novolog 1 sliding scale dose SUBCUT ACHS 03/15/20 03/15/20 History PenFill U-100 Insulin] insulin aspart U-100 [Novolog 5 unit SUBCUT .3XW/UD 03/15/20 03/15/20 History U-100 Insulin aspart] Past Med/Surg History Medical History (Updated 03/15/20 @ 20:26 by Iveth Garcia PA-C) Alzheimer's dementia Anemia in chronic kidney disease (CKD) Atrial fibrillation Coronary artery disease S/P CABG X 4 (~2002) Diabetes IDDM 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 Hemodialysis patient FISTULA LEFT ARM. receiving diaylsis Wednesday, & Wednesday @ [facility] History of kidney stones History of left bundle branch block (LBBB) HTN (hypertension) Hypercholesteremia Hypothyroidism Ischemic cardiomyopathy s/p insertion of pacer/icd 2013. Stable. EF 65-70% on 09/2019 echo. Lipoprotein deficiency halfway resident Obesity Permanent atrial fibrillation Asymptomatic per cardio 10/24/18. Rate controlled on BB, anticoagulated with Eliquis. Prostate cancer Secondary hyperparathyroidism Spinal stenosis Surgical History (Updated 03/15/20 @ 20:26 by Iveth Garcia PA-C) H/O four vessel coronary artery bypass graft CABG X 4 (~2002) H/O total knee replacement RIGHT Hematoma LEFT ARM FISTULA History of brachytherapy History of cardioversion unsuccessful History of surgical removal of pilonidal cyst Hx of hemorrhoidectomy Presence of implantable cardioverter-defibrillator (ICD) PPM/ICD IMPLANTED 2013; [employer] LAST PACER CHECK S/P arteriovenous (AV) fistula creation LUE S/P dialysis catheter insertion Family History Sister Kidney stones Son Kidney stones Mother Diabetes Hypertension Heart disease Aunt Colon cancer Denies family history of Ovarian cancer Prostate cancer Myocardial infarction Breast cancer Social History Smoking Status: Former smoker Second Hand Exposure: No; Hx Alcohol Use: No Hx Substance Use: No Preferred Language: Thai Communication Ability: Effective Visual Impairment: Limited Hearing Ability: Normal 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 Soto for physical exam. Results & Data Results & Data ([facility]) Vital Signs (Past 12 Hours) Vital Signs Temp Pulse Resp BP Pulse Ox 03/15/20 17:45 74 16 98/49 L 99 03/15/20 17:30 81 17 92/52 L 99 03/15/20 17:15 88 16 91/47 L 99 03/15/20 17:05 83 19 99/49 L 97 03/15/20 17:00 75 18 75/43 L 99 03/15/20 16:46 73 18 90/51 L 94 03/15/20 16:26 90 20 100 03/15/20 16:15 88 19 78/42 L 92 03/15/20 16:09 93 H 19 90/47 L 90 03/15/20 16:01 90 20 90 03/15/20 16:00 77 15 87/50 L 03/15/20 15:58 82 18 03/15/20 15:45 88 14 89/49 L 03/15/20 15:31 37.0 C 87 21 83/52 L 100 Laboratory Results Short CBC 03/15/20 03/15/20 03/15/20 Range/Units 16:00 16:00 16:00 WBC 7.91 (4.8-10.8) K/uL RBC 3.11 L (4.7-6.1) M/uL Hgb 9.4 L (14.0-18.0) g/dL Hct 32.5 L (42-52) % MCV 104.5 H (80-100) fL MCH 30.2 (25-34) pg MCHC 28.9 L (32-36) g/dL RDW Std Deviation 62.1 H (36.4-46.3) fL RDW Coeff of Virginie 16.3 H (11.5-14.5) % Plt Count 192 (130-400) K/uL MPV 10.1 (7.4-10.4) fL Immature Gran % (Auto) 0.9 % Neut % (Auto) 70.5 % Lymph % (Auto) 12.0 % [place] % (Auto) 14.5 % Eos % (Auto) 2.0 % Baso % (Auto) 0.1 % Neut # (Auto) 5.57 (1.4-6.5) K/uL Lymph # (Auto) 0.95 L (1.2-3.4) K/uL [place] # (Auto) 1.15 H (0.11-0.59) K/uL Eos # (Auto) 0.16 (0-0.5) K/uL Baso # (Auto) 0.01 (0-0.2) K/uL Immature Gran # (Auto) 0.07 H (0.00-0.02) K/uL PT 14.2 H (9.0-12.0) Seconds INR 1.4 H (0.9-1.1) APTT 37.6 H (21.0-31.0) Seconds PTT Ratio 1.3 Sodium 139 (136-145) mmol/L Potassium 3.5 (3.5-5.1) mmol/L Chloride 98 (98-107) mmol/L Carbon Dioxide 33 H (21-32) mmol/L Anion Gap 8.0 (3-11) BUN 34 H (7-18) mg/dl Creatinine 5.10 H* (0.6-1.4) mg/dl Est Cr Clr Drug Dosing 12.8 ml/min Est GFR ( Amer) 11.1 Est GFR (Non-Af Amer) 9.6 BUN/Creatinine Ratio 6.6 L (10-20) Glucose 217 H (70-99) mg/dl Lactate (0.4-2.0) mmol/L Calcium 9.0 (8.5-10.1) mg/dl Magnesium 2.3 (1.8-2.4) mg/dl Total Bilirubin 0.5 (0.2-1) mg/dl AST 109 H (15-37) U/L ALT 27 (12-78) U/L Alkaline Phosphatase 202 H (45-117) U/L Ammonia (11-32) umol/L Troponin I 0.034 (0-0.045) ng/ml Total Protein 6.1 L (6.4-8.2) gm/dl Albumin 1.8 L (3.4-5.0) gm/dl Globulin 4.3 H (2.5-4.0) gm/dl Albumin/Globulin Ratio 0.4 L (0.9-2) 03/15/20 03/15/20 Range/Units 16:50 16:50 WBC (4.8-10.8) K/uL RBC (4.7-6.1) M/uL Hgb (14.0-18.0) g/dL Hct (42-52) % MCV (80-100) fL MCH (25-34) pg MCHC (32-36) g/dL RDW Std Deviation (36.4-46.3) fL RDW Coeff of Virginie (11.5-14.5) % Plt Count (130-400) K/uL MPV (7.4-10.4) fL Immature Gran % (Auto) % Neut % (Auto) % Lymph % (Auto) % Laramie % (Auto) % Eos % (Auto) % Baso % (Auto) % Neut # (Auto) (1.4-6.5) K/uL Lymph # (Auto) (1.2-3.4) K/uL [place] # (Auto) (0.11-0.59) K/uL Eos # (Auto) (0-0.5) K/uL Baso # (Auto) (0-0.2) K/uL Immature Gran # (Auto) (0.00-0.02) K/uL PT (9.0-12.0) Seconds INR (0.9-1.1) APTT (21.0-31.0) Seconds PTT Ratio Sodium (136-145) mmol/L Potassium (3.5-5.1) mmol/L Chloride (98-107) mmol/L Carbon Dioxide (21-32) mmol/L Anion Gap (3-11) BUN (7-18) mg/dl Creatinine (0.6-1.4) mg/dl Est Cr Clr Drug Dosing ml/min Est GFR ( Amer) Est GFR (Non-Af Amer) BUN/Creatinine Ratio (10-20) Glucose (70-99) mg/dl Lactate 3.0 H* (0.4-2.0) mmol/L Calcium (8.5-10.1) mg/dl Magnesium (1.8-2.4) mg/dl Total Bilirubin (0.2-1) mg/dl AST (15-37) U/L ALT (12-78) U/L Alkaline Phosphatase (45-117) U/L Ammonia 14.6 (11-32) umol/L Troponin I (0-0.045) ng/ml Total Protein (6.4-8.2) gm/dl Albumin (3.4-5.0) gm/dl Globulin (2.5-4.0) gm/dl Albumin/Globulin Ratio (0.9-2) BMP 03/15/20 16:00 Sodium 139 Potassium 3.5 Chloride 98 Carbon Dioxide 33 H BUN 34 H Creatinine 5.10 H* Glucose 217 H Calcium 9.0 Cardiac Enzymes 03/15/20 Range/Units 16:00 Troponin I 0.034 (0-0.045) ng/ml Liver Function 03/15/20 Range/Units 16:00 Total Bilirubin 0.5 (0.2-1) mg/dl AST 109 H (15-37) U/L ALT 27 (12-78) U/L Alkaline Phosphatase 202 H (45-117) U/L Albumin 1.8 L (3.4-5.0) gm/dl Diagnostic Findings CT head: IMPRESSION: 1. No acute intracranial abnormality. 2. 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 CXR: IMPRESSION: No acute cardiopulmonary findings. No change in appearance of the chest. Supervising Physician Co-Signing Physician Notes Patient is an 85-year-old male with end-stage renal disease on dialysis, dementia and other medical problems presents with history of lethargy since 1 week duration. Patient currently is unable to provide any history. He repeats sentences when asked. Patient had surgical debridement of left heel ulcer recently and was noted to have hematuria as outpatient was thought to have urinary tract infection and so was sent to hospital for further management. History is currently limited due to reduced consciousness and dementia. Urinalysis pending. Lactate is elevated at 3.0. No known history of fever, chest pain, shortness of breath. CT head showed no acute findings. Chest x-ray is within normal limits. Normal ammonia levels noted. Please review HPI for complete details of presentation. Patient is admitted in November with multidrug- resistant Klebsiella bacteremia which was thought to be colonized. Patient presented with altered mental status during that admission as well and slowly improved. Physical Exam: Vitals signs as noted above General Appearance:Moderately built and nourished, no apparent distress, Chronic ill appearing Head: normocephalic, Atraumatic Eyes: normal inspection, EOMI, PERRL Neck: supple, Trachea midline Respiratory/Chest: Decreased breath sounds, Scattered crackles Cardiovascular: Paced rhythm, no murmur, +Pacemaker Abdomen/GI:Soft, Non tender, Bowel sounds present Extremities/Musculoskelatal:normal inspection, B/L LE wounds Neurologic/Psych: Decreased responsiveness, unable to perform complete neurological exam Skin: normal color, warm, + Vertical well healed surgical scar Acute metabolic encephalopathy Likely secondary to complicated UTI, rule out bacteremia, leg wound infection CT head showed no acute intracranial abnormality Started empirically on vancomycin, Avycaz Gentle IV fluids given history of ESRD, heart failure Trend lactate levels ID consulted Neuro checks N.p.o. until more awake Aspiration, fall precaution Consulted wound care I personally reviewed the record. Patient is interviewed and examined at bedside. Patient's care is coordinated with Iveth Garcia PA-C. Please refer to the documentation above for details of patient's presentation and for discussion of other issues. (1) Atrial fibrillation Atrial fibrillation type: unspecified Qualified Code(s): I48.91 - Unspecified atrial fibrillation (2) Diabetic ulcer of left heel associated with diabetes mellitus due to underlying condition Non-pressure ulcer stage: unspecified non-pressure ulcer stage Qualified Code(s): E08.621 - Diabetes mellitus due to underlying condition with foot ulcer; L97.429 - Non-pressure chronic ulcer of left heel and midfoot with unspecified severity
[2020-03-15] MEDS ORDERED: GLUCOSE 10 TABS/TUBE PO PRN (19:49)
[2020-03-15] MEDS ORDERED: GLUCOSE 40% GEL 15 GM TUBE PO PRN (19:49)
[2020-03-15] MEDS ORDERED: ACETAMINOPHEN 325 MG TAB PO PRN (19:49)
[2020-03-15] MEDS ORDERED: GLUCAGON FOR INJ 1 MG VIAL SQ PRN (19:49)
[2020-03-15] MEDS ORDERED: DEXTROSE 50% 50 ML SYRINGE IV PRN (19:49)
[2020-03-15] MEDS ORDERED: SODIUM CHLORIDE 0.9% 500 ML IV SCH (19:49)
[2020-03-15] MEDS ORDERED: POLYETHYLENE (MIRALAX) 17 GM PACK PO PRN (19:49)
[2020-03-15] MEDS ORDERED: CARBOHYDRATES FOR HYPOGLYCEMIA PO PRN (19:49)
[2020-03-15] MEDS ORDERED: INFLUENZA VACCINE HIGH DOSE 65+ 0.5 ML SYR IM ONE (20:12)
[2020-03-15] MEDS ORDERED: INFLUENZA ADMINISTRATION CHARGE ONE (20:12)
[2020-03-15] MEDS: INSULIN ASPART 100 UNITS/ML 3 ML PEN SC SCH ×3 (20:12→21:58)
[2020-03-15] MEDS ORDERED: CONSULT PHARMACY PRN (20:15)
[2020-03-15] MEDS: INSULIN GLARGINE SOLOSTAR 100 UNITS/ML 3 ML PEN SC SCH (21:51)
[2020-03-16] MEDS: METOPROLOL TARTRATE 1 MG/ML VIAL IV SCH ×2 (00:19→06:20)
[2020-03-16] MEDS: INSULIN ASPART 100 UNITS/ML 3 ML PEN SC SCH ×5 (00:31→21:13)
[2020-03-16] MEDS ORDERED: ALBUMIN 25% 50 ML IV ONE (00:45)
[2020-03-16 06:49] LABS: Appearance Urine Turbid (Clear); Blood Urine 3+ (Negative); Color Urine Brown; Glucose Urine UA Negative (Negative); Ketones Urine 1+ (Negative); Leukocyte Esterase Urine 3+ (Negative); Nitrite Urine Positive (Negative); Protein Urine 3+ (Negative); Urobilinogen Urine Positive (Negative)
[2020-03-16 06:50] LABS: Bilirubin Urine Negative (Negative); Ictotest Urine Negative (Negative)
[2020-03-16 07:03] LABS: Epithelial Cell Urine 0-5 /lpf (0-5); RBC Urine >30 /hpf (0-4); WBC Urine >30 /hpf (0-5)
[2020-03-16 07:04] LABS: Bacteria Urine 4+ (Negative)
[2020-03-16 08:00] LABS: Hematocrit (blood only) 31.3 % (42-52); Hemoglobin 9.4 g/dL (14.0-18.0); Mean Corpuscular Hemoglobin 30.8 pg (25-34); Mean Corpuscular Volume 102.6 fL (80-100); Mean Platelet Volume 9.8 fL (7.4-10.4); Platelet Count 172 K/uL (130-400); RDW Coefficient of Variation 16.2 % (11.5-14.5); RDW Standard Deviation 60.5 fL (36.4-46.3); Red Blood Count 3.05 M/uL (4.7-6.1); White Blood Count 7.01 K/uL (4.8-10.8)
[2020-03-16] MEDS ORDERED: VANCOMYCIN CONSULT ACTIVE PRN (08:15)
[2020-03-16] MEDS: INSULIN GLARGINE SOLOSTAR 100 UNITS/ML 3 ML PEN SC SCH ×2 (08:20→21:13)
[2020-03-16 08:37] LABS: BUN Creatinine Ratio 6.6 (10-20); Calcium 8.9 mg/dl (8.5-10.1); Creatinine Clr Calc Pharmacy 11.2 ml/min; Est GFR (African American) 9.4; Est GFR (Non-African American) 8.1; Magnesium 2.3 mg/dl (1.8-2.4); Phosphorus 2.1 mg/dl (2.5-4.9); Potassium 3.5 mmol/L (3.5-5.1)
--- NOTE | 2020-03-16 08:40 | Pharmacy Report ---
Pharmacy Abx Initial Consult - Date of Service March 16, 2020 - Pharmacy Dosing Scope Date of Consult: 03/15/2020 Consultation requested by: Iveth Garcia PA-C Pharmacy is consulted to initiate Vancomycin & Avycaz IV dosing therapy, order appropriate labs and adjust drug dose/frequency. - Subjective The patient is a 85 year old M admitted on 03/15/20 18:14. - Objective Height: 5 ft 10 in Weight: 101.2 kg Vital Signs (Past 12hrs): Vital Signs Temp Pulse Resp BP BP Pulse Ox 03/16/20 06:20 82 105/63 03/16/20 03:02 36.8 C 21 121/74 98 03/16/20 00:19 92 H 99/64 L 03/16/20 00:15 36.7 C 16 99/64 L 94 03/15/20 23:57 78 03/15/20 22:03 80 Lab Results (24hrs): Laboratory Tests (24 Hours) 03/16/20 03/16/20 03/16/20 07:27 07:27 07:27 WBC 7.01 Neut # (Auto) Creatinine 5.84 H* D Est Cr Clr Drug Dosing 11.2 Random Vancomycin 19.8 03/15/20 03/15/20 16:00 16:00 WBC 7.91 Neut # (Auto) 5.57 Creatinine 5.10 H* Est Cr Clr Drug Dosing 12.8 Random Vancomycin Micro Results: 03/16/20 06:20 Urine Culture - Pending Urine,Straight Cath 03/15/20 16:47 Aerobic Blood Culture - Pending Blood Anaerobic Blood Culture - Pending 03/15/20 16:00 Aerobic Blood Culture - Pending Blood Anaerobic Blood Culture - Pending - Risk Factors for Resistance * Resident in a [facility] or extended-care facility * Chronic dialysis within the past 30 days * History of infection with a multidrug-resistant organism: * MRSA R & L foot (December 2019) * ESBL K. pneumoniae L foot (December 2019) * Antimicrobial use within the last 90 days: * Cephalexin, Doxycycline, Bactrim, Ceftriaxone - Assessment & Plan Assessment 85 year old M admitted from [facility] secondary to lethargy x 1 week * PMHx significant for ESRD on HD TuThSa, IDDM, A Fib, dementia, CAD * Developed gross hematuria over the past 5 days and outpatient urine culture grew MDR K. pneumoniae (concern for colonization) * Diabetic ulcer of L heel has grown MRSA and ESBL K. pneumoniae earlier this year * Patient has been afebrile. No leukocytosis. Initial lactic acid was 3 but trending down (2.5 --> 1.7) * Nephrology and rKishan LEÓN consulted Plan Vancomycin & Avycaz for treatment of UTI and Diabetic Foot Ulcer Vancomycin IV * Loading dose: 2000 mg (20 mg/kg) * Goal trough level: 15 to 20 mcg/mL * Random level this AM was 19.8 mcg/mL (therapeutic). Will dose by level given ESRD on HD and await HD schedule from nephrology. * Will give 750 mg IV x 1 today (after dialysis if it is ordered). Random level will be ordered for tomorrow AM. Avycaz * 0.94 g IV every 24 hours - appropriate per indication and HD Pharmacy will continue to follow and will adjust dose/frequency as necessary. Thank you.
[2020-03-16] MEDS ORDERED: POTASSIUM PHOS 3 MMOL/1 ML INFUSION IV ONE (09:25)
[2020-03-16] MEDS ORDERED: POTASSIUM PHOSPHATE 15 MMOL in SODIUM CHLORIDE 0.9% 250 ML IV ONE (09:30)
[2020-03-16] MEDS: ESCITALOPRAM OXALATE ORAL SOLN 5 MG/5 ML PO SCH (10:42)
[2020-03-16] MEDS: APIXABAN 2.5 MG TAB PO SCH ×2 (10:42→21:11)
[2020-03-16] MEDS ORDERED: Nursing to Pharmacy Communication SCH (11:00)
--- NOTE | 2020-03-16 12:56 | Nephrology Consultation ---
Date of Consultation March 16, 2020 Assessment & Plan (1) ESRD (end stage renal disease) on dialysis: * ESRD due to diabetic nephropathy. Dialyzes at [facility] TTS 4hr, 2K 2Ca HCO3 32 Na 140 temp 37, F-180NR, EDW 99 * Patient appears clinically volume contracted and very weak. Electrolyte balance is acceptable. Will hold HD today and monitor volume status and electrolyte balance * AVF + bruit (2) Complicated UTI (urinary tract infection): * h/o ESBL Klebsiella UTI 01/07 * Await results of follow up cx (3) Venous stasis ulcers of both lower extremities: * Consider consultation w/ Ortho for further debridement * MRSA - given 2g IV Vanco while in ED 03/15/20 (4) Atrial fibrillation: * On Metoprolol & Apixaban (5) Alzheimer's dementia: * I had spoken w/ patient's 12/08 about his clinical decline. She indicated that she did not want to actively stop HD. Patient however was made DNR/DNI History of Present Illness Reason for Consultation: ESRD on HD Attending Physician: Charles Soto MD History of Present Illness Mr. Holder is an 85 year old white male who is seen at the request of Dr. Soto to provide HD during his hospitalization. Medical records in the EMR were reviewed today and are summarized as follows: Mr. Holder has ESRD due to diabetic nephropathy. He has been on HD since 12/07 and dialyzes at [facility] (TTS 4hr, 2K 2Ca HCO3 32 Na 140 temp 37, F-180NR, EDW 99). He has a functioning L upper arm AVF in place. Mr. Holder's medical history is significant for AODM, HTN, anemia, hypercholesterolemia, ASCVD s/p CABG x3 ([facility] 2002), atrial fibrillation (Apixaban), prostate CA s/p radioactive seed implants and progressive dementia. Mr. Holder is a resident at [facility]. He is now bedridden and has developed an ulcerative leions on both heels. He required surgical debridement earlier this month. Mr. Holder is now admitted w/ lethargy and gross hematuria. Evaluation has revealed MRSA involving the L heel ulcer and a h/o MDR Klebsiella UTI Allergies Allergy/AdvReac Type Severity Reaction Status Date / Time clindamycin AdvReac Mild Nausea Verified 03/15/20 17:40 Home Medications Home Medications Medication Instructions Recorded Confirmed Type Calcium 600 + D(3) 1 cap PO QAM 09/21/19 03/15/20 History acetaminophen [Tylenol Extra 1,000 mg PO Q8 PRN 09/21/19 03/15/20 History Strength] acetaminophen [Tylenol] 650 mg PO Q4 PRN MDD 3G 09/21/19 03/15/20 History ascorbic acid (vitamin C) [Vitamin 1,000 mg PO QAM 09/21/19 03/15/20 History C] atorvastatin [Lipitor] 80 mg PO HS 09/21/19 03/15/20 History cholecalciferol (vitamin D3) 25 mcg PO QAM 09/21/19 03/15/20 History [Vitamin D3] docusate sodium [Colace] 100 mg PO BID 09/21/19 03/15/20 History famotidine 10 mg PO 4XWK 09/21/19 03/15/20 History levothyroxine 100 mcg PO DAILY@0700 09/21/19 03/15/20 History nitroglycerin [Nitrostat] 0.4 mg SUBLINGUAL UD PRN 09/21/19 03/15/20 History oxymetazoline [Afrin Sinus 2 spray INTRANASAL Q8 PRN 09/21/19 03/15/20 History (oxymetazoline)] Basaglar KwikPen U-100 Insulin 18 unit SUBCUT Q12 10/04/19 03/15/20 History Eliquis 2.5 mg PO BID 11/16/19 03/15/20 History gabapentin 600 mg PO BID 11/16/19 03/15/20 History bisacodyl [Dulcolax (bisacodyl)] 10 mg [place] DIRECTED PRN 11/25/19 03/15/20 History pediatric multivitamin 1 tab PO QPM 11/25/19 03/15/20 History calcium acetate 667 mg PO UD 02/21/20 03/15/20 History escitalopram oxalate [Lexapro] 7.5 mg PO QAM 02/21/20 03/15/20 History metoprolol succinate 12.5 mg PO BID 02/21/20 03/15/20 History polyethylene glycol 3350 17 g PO DAILY PRN 02/21/20 03/15/20 History oxycodone 5 mg PO Q8H PRN #20 tab 02/23/20 03/15/20 Rx insulin aspart U-100 [Novolog 1 sliding scale dose SUBCUT ACHS 03/15/20 03/15/20 History PenFill U-100 Insulin] insulin aspart U-100 [Novolog 5 unit SUBCUT .3XW/UD 03/15/20 03/15/20 History U-100 Insulin aspart] Patient History Medical History Alzheimer's dementia Anemia in chronic kidney disease (CKD) Atrial fibrillation Coronary artery disease S/P CABG X 4 (~2002) Diabetes IDDM 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 Hemodialysis patient FISTULA LEFT ARM. receiving diaylsis Wednesday, & Wednesday @ [facility] History of kidney stones History of left bundle branch block (LBBB) HTN (hypertension) Hypercholesteremia Hypothyroidism Ischemic cardiomyopathy s/p insertion of pacer/icd 2013. Stable. EF 65-70% on 09/2019 echo. Lipoprotein deficiency half-way resident Obesity Permanent atrial fibrillation Asymptomatic per cardio 10/24/18. Rate controlled on BB, anticoagulated with Eliquis. Prostate cancer Secondary hyperparathyroidism Spinal stenosis Surgical History H/O four vessel coronary artery bypass graft CABG X 4 (~2002) H/O total knee replacement RIGHT Hematoma LEFT ARM FISTULA History of brachytherapy History of cardioversion unsuccessful History of surgical removal of pilonidal cyst Hx of hemorrhoidectomy Presence of implantable cardioverter-defibrillator (ICD) PPM/ICD IMPLANTED 2013; [employer] LAST PACER CHECK S/P arteriovenous (AV) fistula creation LUE S/P dialysis catheter insertion Family History Sister Kidney stones Son Kidney stones Mother Diabetes Hypertension Heart disease Aunt Colon cancer Denies family history of Ovarian cancer Prostate cancer Myocardial infarction Breast cancer Social History Smoking Status: Former smoker Second Hand Exposure: No; Hx Alcohol Use: No Hx Substance Use: No Preferred Language: Belarusian Communication Ability: Impaired Visual Impairment: Limited Hearing Ability: Normal Housing Property Manager Required: No Beliefs That Will Affect Care: None marital status: Current Living Situation: [facility] Current Living Situation Comment: [facility] current occupational status: retired Feels Safe at Home: Yes Safety Concerns: Feels Safe At This Time Assistive Devices: Denture - Upper Review of Systems Constitutional: + weakness; no fever Eyes: no problem reported Ear, Nose, Mouth, Throat: no problem reported Respiratory: no dyspnea Cardiovascular: no chest pain Gastrointestinal: no abdominal pain Neurologic: no dizziness Physical Exam Constitutional: + frail appearing; not in distress Eyes: PERRL, conjunctivae normal, anicteric sclerae ENMT: external ear and nose normal, oropharynx normal Neck: trachea midline, no thyromegaly Respiratory: normal respiratory effort, lungs clear to auscultation Cardiovascular: Rate/Rhythm: + irregularly irregular Gastrointestinal (Abdomen): normal bowel sounds, soft, nontender, no hepatosplenomegaly Musculoskeletal: Extremities: no cyanosis Skin: R heel ulcer w/ necrotic base Neurologic: awake (oriented to self only) Results & Data ([facility]) Vital Signs (Past 12 Hours) Vital Signs Temp Pulse Pulse Resp BP BP BP 03/16/20 11:55 36.8 C 80 20 119/72 03/16/20 06:20 82 105/63 03/16/20 03:02 36.8 C 21 121/74 Pulse Ox 03/16/20 11:55 99 03/16/20 06:20 03/16/20 03:02 98 Laboratory Tests 03/16/20 03/16/20 07:27 07:27 WBC 7.01 Hgb 9.4 L Hct 31.3 L Plt Count 172 Sodium 140 Potassium 3.5 Chloride 101 Carbon Dioxide 30 Glucose 135 H Calcium 8.9 Phosphorus 2.1 L Magnesium 2.3 PG Care Time/CCT Total # of Minutes Spent Total Time Spent with Patient: Total time spent is greater than 50% in coordination of care (as documented) at patient's floor/unit and/or counseling patient: Coding Level of Care Code 03970 Inpt Consult Level 5 Diagnoses ESRD (end stage renal disease) on dialysis N18.6; Z99.2 Complicated UTI (urinary tract infection) N39.0 Venous stasis ulcers of both lower extremities I83.019; I83.029; L97.919; L97.929 Atrial fibrillation I48.91 Atrial fibrillation type: unspecified Alzheimer's dementia G30.9; F02.80 (1) Atrial fibrillation Atrial fibrillation type: unspecified Qualified Code(s): I48.91 - Unspecified atrial fibrillation
[2020-03-16] MEDS ORDERED: OXYMETAZOLINE 0.05% 30 ML BTL PRN (14:58)
--- NOTE | 2020-03-16 15:16 | Hospitalist Progress Note ---
Date of Service March 16, 2020 Assessment & Plan (1) Acute metabolic encephalopathy: (2) Complicated UTI (urinary tract infection): Patient is an 85 Yr male with H/O ESRD on HD, IDDM, dementia, chronic atrial fibrillation, CAD and other medical problems as below who presents from [facility] with lethargy x 1 week with multidrug-resistant Klebsiella urinary tract infection. Acute metabolic encephalopathy Complicated UTI Foot Wounds/Ulcers Possible Sepsis-POA H/O MRSA Outpatient UTI with 03/11 culture growing multidrug-resistant Klebsiella pneumonia --CT Head: No acute intracranial abnormality. 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 --CXR: No acute cardiopulmonary findings. No change in appearance of the chest. Blood Culture: Pending Urine Culture: Pending Lactate levels normalized with IV fluids Received gentle IV fluids given ESRD/CHF Continue vancomycin, Avycaz Day #2 Consulted ID and Orthopedics Continue wound care Mental status slightly improved Hypophosphatemia Replete electrolytes as needed (3) Diabetic ulcer of left heel associated with diabetes mellitus due to underlying condition: Management as above (4) MRSA infection: Follows with wound care clinic for left heel ulcer H/O recent surgical debridement of Left heel ulcer by Dr. Galdamez on 02/21/20 Wound culture grew MRSA ID consulted Management as above (5) Diabetes mellitus type 2, insulin dependent: Continue Basal/bolus insulin while in-patient Monitor BSG AC HS (6) ESRD (end stage renal disease) on dialysis: HD MWF. Nephrology consulted to assist with dialysis (7) Atrial fibrillation: Continue metoprolol Continue Eliquis for anticoagulation (8) Hypothyroidism: Continue levothyroxine Dementia Unknown baseline No agitation DVT Px: Eliquis Code status: DNR/DNI PCP: at [facility] Disposition: Case management consulted to help with discharge plan Admission and Anticipated Discharge Date Admission Date: March 15, 2020 Subjective Patient is seen and examined at bedside More alert, awake today Oriented to person and place Follows simple commands Denies chest pain, shortness of breath, dizziness, nausea Poor historian Reports left leg pain Offers no other complaints Review of Systems Review of Systems: All systems reviewed & are unremarkable except as noted in HPI & below Physical Exam Physical Exam: Physical Exam: Vitals signs as noted above General Appearance:Moderately built and nourished, no apparent distress, Chronic ill appearing Head: normocephalic, Atraumatic Eyes: normal inspection, EOMI Neck: supple, Trachea midline Respiratory/Chest: Decreased breath sounds, CTA Cardiovascular: Paced rhythm, no murmur, +Pacemaker Abdomen/GI:Soft, Non tender, Bowel sounds present Extremities/Musculoskelatal:normal inspection, B/L LE Foot wounds Neurologic/Psych: Alert, awake, Moves all extremities Skin: normal color, warm, + Vertical well healed surgical scar Results & Data Results & Data ([facility]) Vital Signs (Past 12 Hours) Vital Signs Temp Pulse Pulse Resp BP BP BP 03/16/20 11:55 36.8 C 80 20 119/72 03/16/20 06:20 82 105/63 03/16/20 03:02 36.8 C 21 121/74 Pulse Ox 03/16/20 11:55 99 03/16/20 06:20 03/16/20 03:02 98 Laboratory Results Short CBC 03/15/20 03/16/20 Range/Units 16:00 07:27 WBC 7.91 7.01 (4.8-10.8) K/uL Hgb 9.4 L 9.4 L (14.0-18.0) g/dL Hct 32.5 L 31.3 L (42-52) % Plt Count 192 172 (130-400) K/uL BMP 03/15/20 03/16/20 16:00 07:27 Sodium 139 140 Potassium 3.5 3.5 Chloride 98 101 Carbon Dioxide 33 H 30 BUN 34 H 39 H Creatinine 5.10 H* 5.84 H* D Glucose 217 H 135 H Calcium 9.0 8.9 Cardiac Enzymes 03/15/20 Range/Units 16:00 Troponin I 0.034 (0-0.045) ng/ml Liver Function 03/15/20 Range/Units 16:00 Total Bilirubin 0.5 (0.2-1) mg/dl AST 109 H (15-37) U/L ALT 27 (12-78) U/L Alkaline Phosphatase 202 H (45-117) U/L Albumin 1.8 L (3.4-5.0) gm/dl Urine 03/16/20 Range/Units 06:20 Urine Color Brown Urine Appearance Turbid A (Clear) Urine pH 7.0 (4.5-7.5) Ur Specific Waldron 1.020 (1.000-1.030) Urine Protein 3+ H (Negative) Urine Glucose (UA) Negative (Negative) (1) Diabetic ulcer of left heel associated with diabetes mellitus due to underlying condition Non-pressure ulcer stage: unspecified non-pressure ulcer stage Qualified Code(s): E08.621 - Diabetes mellitus due to underlying condition with foot ulcer; L97.429 - Non-pressure chronic ulcer of left heel and midfoot with unspecified severity (2) Atrial fibrillation Atrial fibrillation type: unspecified Qualified Code(s): I48.91 - Unspecified atrial fibrillation
[2020-03-16] MEDS: CEFTAZIDIME AVIBACTAM IV SCH (17:52)
[2020-03-16] MEDS: SODIUM CHLORIDE 0.9% IV SCH (17:52)
[2020-03-16] MEDS: METOPROLOL SUCC 25MG EXT REL TAB PO SCH (21:11)
[2020-03-16] MEDS: ATORVASTATIN 40 MG TAB PO SCH (21:13)
[2020-03-16] MEDS: DOCUSATE SODIUM 100 MG CAP PO SCH (21:15)
--- NOTE | 2020-03-17 00:53 | Consultation Report ---
DATE OF CONSULTATION: 03/16/2020 PERTINENT HISTORY: This is an 85-year-old gentleman seen at the request of Dr. Charles Soto regarding bilateral heel ulcerations. The patient is well known to the orthopedic service and has had previous debridement and application of TheraSkin split thickness skin graft on 02/23/2020. The patient was doing fairly well with recovery; however, then developed an acute metabolic encephalopathy and complicated urinary tract infections and admitted to the hospital on the medicine service. He was seen in consultation today at the request of the medicine service. The patient was seen and examined. I visited with the patient in his hospital room. He has no complaints of pain; however, he does note that he has some drainage in the left heel. He is neuropathic. PAST MEDICAL HISTORY: Diabetes mellitus type 2, diabetic chronic ulcerations of left heel with MRSA infection, ESRD on renal dialysis, atrial fibrillation, hypothyroidism. Please note the complicated medical history in the medical record. PAST SURGICAL HISTORY: Recent bilateral heel debridements with application of skin graft, four-vessel CABG, total knee replacement on the right, hematoma on the left arm fistula, history of brachytherapy, cardioversion, surgical removal of pilonidal cyst, hemorrhoidectomy, implantable cardioverter defibrillator, AV fistula creation, left upper extremity dialysis catheter insertion. ALLERGIES: CLINDAMYCIN WITH NAUSEA. MEDICATIONS: Please note the extensive list in the medical record. SOCIAL HISTORY: The patient denies current tobacco, alcohol, or drug use. He is a former smoker. He lives at [facility]. He is . He is retired. PHYSICAL EXAMINATION: This is an 85-year-old gentleman lying supine in his hospital room bed. He is seen with his nurse present. Examination of the bilateral lower extremities demonstrates chronic venous stasis changes, weak pedal pulses. Feet are warm. Dressings intact. Dressings were removed from bilateral heels noting an 8 x 8 x 0.4 cm heel ulceration with drainage on the left. No acute foul odor. On the right, also noted is an 8 x 8 x 0.4 cm heel ulceration with scant discharge and drainage. TheraSkin is intact with skin argelia, bilateral heels and at the right base of the fifth metatarsal, which measures 1.5 x 1.5 x 0.5 cm. The left heel has granulation tissue present, however, significant drainage. The patient has pressure on bilateral heels despite orders for nonweightbearing bilateral heels with elevated heels. LABORATORIES AND IMAGING DATA: Reviewed. IMPRESSION: Bilateral chronic heel ulcerations, left side 8 x 8 x 0.4 cm, right side 8 x 8 x 0.4 cm, and right base of fifth metatarsal 1.5 x 1.5 x 0.5 cm with TheraSkin and skin argelia present. Significant drainage in the left heel. History of osteomyelitis and MRSA. RECOMMENDATIONS: Maintain strict nonweightbearing, bilateral heels, waffle boots while in the hospital. Dry dressing changes every shift. Continue IV antibiotics for his complicated urinary tract infection. We will reassess. May need to have repeat irrigation and debridement on the left heel. The patient is at high risk of calcanectomy on the left, possible amputation, left lower leg, if osteomyelitis persists or worsens. Continue IV antibiotics. Thank you for the opportunity to consult in the care of this patient.
[2020-03-17] MEDS: LEVOTHYROXINE SODIUM 100 MCG TABLET PO SCH (06:08)
[2020-03-17 07:37] LABS: Hematocrit (blood only) 31.8 % (42-52); Hemoglobin 9.4 g/dL (14.0-18.0); Mean Corpuscular Hemoglobin 30.5 pg (25-34); Mean Corpuscular Hgb Conc 29.6 g/dL (32-36); Mean Corpuscular Volume 103.2 fL (80-100); Mean Platelet Volume 9.6 fL (7.4-10.4); Platelet Count 222 K/uL (130-400); RDW Standard Deviation 60.3 fL (36.4-46.3); Red Blood Count 3.08 M/uL (4.7-6.1); White Blood Count 8.77 K/uL (4.8-10.8)
[2020-03-17] MEDS: FAMOTIDINE 10 MG TABLET PO SCH (08:02)
[2020-03-17] MEDS: DOCUSATE SODIUM 100 MG CAP PO SCH ×2 (08:03→21:15)
[2020-03-17] MEDS: APIXABAN 2.5 MG TAB PO SCH ×2 (08:04→21:15)
[2020-03-17 08:06] LABS: BUN Creatinine Ratio 7.6 (10-20); Calcium 8.8 mg/dl (8.5-10.1); Creatinine Clr Calc Pharmacy 9.5 ml/min; Est GFR (African American) 7.7; Est GFR (Non-African American) 6.6; Phosphorus 2.7 mg/dl (2.5-4.9); Potassium 3.3 mmol/L (3.5-5.1)
[2020-03-17] MEDS: METOPROLOL SUCC 25MG EXT REL TAB PO SCH ×2 (08:07→21:16)
[2020-03-17] MEDS: INSULIN ASPART 100 UNITS/ML 3 ML PEN SC SCH ×4 (08:10→21:14)
--- NOTE | 2020-03-17 08:24 | Electrocardiogram Report ---
Test Reason : Blood Pressure : / mmHG Vent. Rate : 089 BPM Atrial Rate : 084 BPM P-R Int : 000 ms QRS Dur : 136 ms QT Int : 414 ms P-R-T Axes : 000 073 244 degrees QTc Int : 503 ms Atrial fibrillation with a demand pacemaker Fusion complexes Abnormal ECG When compared with ECG of 24-NOV-2019 23:47, No significant change Confirmed by Jesse Snowden ([id number]) on 03/17/2020 8:24:02 AM Referred By: Cari waters [facility] Confirmed By:Jesse Snowden
--- NOTE | 2020-03-17 10:09 | Orthopedic Progress Note ---
Date of Service March 17, 2020 Assessment & Plan (1) Decubitus ulcer of heel, bilateral: B/L heel ulcers. Continue daily dressing changes, waffle boots. IV antibiotics, complicated UTI Will be starting Dialysis Poss I&D, pos amputation as per Dr. Galdamez. As per primary team for multiple medical issues. Admission and Anticipated Discharge Date Admission Date: March 15, 2020 Subjective Follow up B/L heel ulcers. Patient confused so interview compromised. Physical Exam Physical Exam: Patient appears comfortable. He is wake and alert. Confused. Unable to hold conversation. Waffle boots in place. Dressings B/L heels c/d/i. Patient able to move feet as simple command. Results & Data ([facility]) Vital Signs (Past 12 Hours) Vital Signs Temp Pulse Resp BP Pulse Ox 03/17/20 08:13 103/62 03/17/20 07:51 36.4 C L 77 16 84/52 L 98 03/17/20 02:41 37.1 C 77 17 100/64 98 03/16/20 23:15 37.0 C 79 19 106/59 L 99
[2020-03-17] MEDS: INSULIN GLARGINE SOLOSTAR 100 UNITS/ML 3 ML PEN SC SCH ×2 (10:51→21:13)
[2020-03-17] MEDS: ESCITALOPRAM OXALATE ORAL SOLN 5 MG/5 ML PO SCH (10:53)
[2020-03-17] MEDS ORDERED: POTASSIUM CHLORIDE 20 MEQ/15 ML UDC PO ONE (11:00)
--- NOTE | 2020-03-17 11:03 | Nephrology Progress Note ---
Date of Service March 17, 2020 Assessment & Plan (1) ESRD (end stage renal disease) on dialysis: * ESRD due to diabetic nephropathy. Dialyzes at [facility] TTS 4hr, 2K 2Ca HCO3 32 Na 140 temp 37, F-180NR, EDW 99 * Patient appears clinically volume contracted and very weak. Electrolyte balance is acceptable. Will schedule next HD for am * AVF + bruit (2) Complicated UTI (urinary tract infection): * h/o ESBL Klebsiella UTI 01/07 * Await results of follow up cx (3) Venous stasis ulcers of both lower extremities: * Consider consultation w/ Ortho for further debridement * MRSA - given 2g IV Vanco while in ED 03/15/20 (4) Atrial fibrillation: * On Metoprolol & Apixaban (5) Alzheimer's dementia: * I had spoken w/ patient's 12/08 about his clinical decline. She indicated that she did not want to actively stop HD. Patient however was made DNR/DNI Admission and Anticipated Discharge Date Admission Date: March 15, 2020 Subjective Mr. Holder was seen & examined in his hospital room this morning. He is more alert this morning. He currently denies fever, angina, dyspnea Review of Systems Constitutional: + weakness; no fever Eyes: no problem reported Ear, Nose, Mouth, Throat: no problem reported Respiratory: no dyspnea Cardiovascular: no chest pain Gastrointestinal: no abdominal pain and no diarrhea/loose stools Musculoskeletal: no back pain Integumentary: no rash Neurologic: no dizziness Physical Exam Constitutional: + frail appearing; not in distress Eyes: PERRL, conjunctivae normal, anicteric sclerae ENMT: external ear and nose normal, oropharynx normal Neck: trachea midline, no thyromegaly Respiratory: normal respiratory effort, lungs clear to auscultation Cardiovascular: Rate/Rhythm: + irregularly irregular Gastrointestinal (Abdomen): normal bowel sounds, soft, nontender, no hepatosplenomegaly Musculoskeletal: Extremities: no cyanosis Neurologic: awake (oriented to self only) Results & Data ([facility]) Vital Signs (Past 12 Hours) Vital Signs Temp Pulse Resp BP Pulse Ox 03/17/20 08:13 103/62 03/17/20 07:51 36.4 C L 77 16 84/52 L 98 03/17/20 02:41 37.1 C 77 17 100/64 98 03/16/20 23:15 37.0 C 79 19 106/59 L 99 Laboratory Results Laboratory Tests 03/17/20 03/17/20 07:21 07:21 WBC 8.77 Hgb 9.4 L Hct 31.8 L Plt Count 222 Sodium 140 Potassium 3.3 L Chloride 100 Carbon Dioxide 30 BUN 54 H Creatinine 6.93 H* D Glucose 126 H PG Care Time/CCT Total # of Minutes Spent Total Time Spent with Patient: Total time spent is greater than 50% in coordination of care (as documented) at patient's floor/unit and/or counseling patient: Coding Level of Care Code 94212 Subseq Hosp Care Lvl 3 Diagnoses ESRD (end stage renal disease) on dialysis N18.6; Z99.2 Complicated UTI (urinary tract infection) N39.0 Venous stasis ulcers of both lower extremities I83.019; I83.029; L97.919; L97.929 Atrial fibrillation I48.91 Atrial fibrillation type: unspecified Alzheimer's dementia G30.9; F02.80 (1) Atrial fibrillation Atrial fibrillation type: unspecified Qualified Code(s): I48.91 - Unspecified atrial fibrillation
[2020-03-17] MEDS: CEFTAZIDIME AVIBACTAM IV SCH (17:52)
[2020-03-17] MEDS: SODIUM CHLORIDE 0.9% IV SCH (17:52)
--- NOTE | 2020-03-17 18:18 | Hospitalist Progress Note ---
Date of Service March 17, 2020 Assessment & Plan (1) Acute metabolic encephalopathy: (2) Complicated UTI (urinary tract infection): Patient is an 85 Yr male with H/O ESRD on HD, IDDM, dementia, chronic atrial fibrillation, CAD and other medical problems as below who presents from [facility] with lethargy x 1 week with multidrug-resistant Klebsiella urinary tract infection. Acute metabolic encephalopathy Complicated UTI Foot Wounds/Ulcers Possible Sepsis-POA H/O MRSA Outpatient UTI with 03/11 culture growing multidrug-resistant Klebsiella pneumonia --CT Head: No acute intracranial abnormality. 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 --CXR: No acute cardiopulmonary findings. No change in appearance of the chest. Blood Culture: No growth to date Urine Culture: Gram-negative bacilli Lactate levels normalized with IV fluids Received gentle IV fluids given ESRD/CHF Continue vancomycin, Avycaz Day #3 Consulted ID--pending Appreciate orthopedics input Continue wound care Mental status continues to improve May need surgical procedure on heel ulcers Hypokalemia Hypophosphatemia Normal magnesium level Replete electrolytes as needed (3) Diabetic ulcer of left heel associated with diabetes mellitus due to underlying condition: Management as above (4) MRSA infection: Follows with wound care clinic for left heel ulcer H/O recent surgical debridement of Left heel ulcer by Dr. Galdamez on 02/21/20 Wound culture grew MRSA ID consulted Management as above (5) Diabetes mellitus type 2, insulin dependent: Continue Basal/bolus insulin while in-patient Monitor BSG AC HS (6) ESRD (end stage renal disease) on dialysis: on HD Nephrology consulted to assist with dialysis Plan for hemodialysis tomorrow (7) Atrial fibrillation: Continue metoprolol Continue Eliquis for anticoagulation (8) Hypothyroidism: Continue levothyroxine Dementia Unknown baseline No agitation DVT Px: Eliquis Code status: DNR/DNI PCP: at [facility] Disposition: Case management consulted to help with discharge plan Admission and Anticipated Discharge Date Admission Date: March 15, 2020 Subjective Patient is seen and examined at bedside No specific complaints today No significant foot/heel pain Discussed with patient's over phone in detail Mental status slowly improving History is limited secondary to dementia Plan for hemodialysis tomorrow Urine culture growing gram-negative bacilli Denies chest pain, shortness of breath, dizziness, nausea Review of Systems Review of Systems: All systems reviewed & are unremarkable except as noted in HPI & below Physical Exam Physical Exam: Physical Exam: Vitals signs as noted above General Appearance:Moderately built and nourished, no apparent distress, Chronic ill appearing Head: normocephalic, Atraumatic Eyes: normal inspection, EOMI Neck: supple, Trachea midline Respiratory/Chest: Decreased breath sounds, CTA Cardiovascular: Paced rhythm, no murmur, +Pacemaker Abdomen/GI:Soft, Non tender, Bowel sounds present Extremities/Musculoskelatal:normal inspection, B/L LE Foot/Heel wounds/Ulcers Neurologic/Psych: Alert, awake, Moves all extremities Skin: normal color, warm, + Vertical well healed surgical scar Results & Data Results & Data ([facility]) Vital Signs (Past 12 Hours) Vital Signs Temp Pulse Resp BP Pulse Ox 03/17/20 15:30 36.5 C 80 20 88/52 L 92 03/17/20 11:15 36.3 C L 80 20 91/59 L 92 03/17/20 08:13 103/62 03/17/20 07:51 36.4 C L 77 16 84/52 L 98 Laboratory Results Short CBC 03/17/20 Range/Units 07:21 WBC 8.77 (4.8-10.8) K/uL Hgb 9.4 L (14.0-18.0) g/dL Hct 31.8 L (42-52) % Plt Count 222 (130-400) K/uL BMP 03/17/20 07:21 Sodium 140 Potassium 3.3 L Chloride 100 Carbon Dioxide 30 BUN 54 H Creatinine 6.93 H* D Glucose 126 H Calcium 8.8 (1) Diabetic ulcer of left heel associated with diabetes mellitus due to underlying condition Non-pressure ulcer stage: unspecified non-pressure ulcer stage Qualified Code(s): E08.621 - Diabetes mellitus due to underlying condition with foot ulcer; L97.429 - Non-pressure chronic ulcer of left heel and midfoot with unspecified severity (2) Atrial fibrillation Atrial fibrillation type: unspecified Qualified Code(s): I48.91 - Unspecified atrial fibrillation
[2020-03-17] MEDS: ATORVASTATIN 40 MG TAB PO SCH (21:16)
[2020-03-18] MEDS: LEVOTHYROXINE SODIUM 100 MCG TABLET PO SCH (05:22)
--- NOTE | 2020-03-18 05:53 | Communication Note ---
Date of Service: March 18, 2020 Patient noted to have hematuria. Not complaining of pain as per RN due to baseline confusion. AP Hematuria Ongoing Rx for complicated UTI NOAC tx A.m. labs now CT abdomen pelvis RE hematuria Appropriate to hold Eliquis for now. May need Urology eval pending work-up results. Will relay to AM provider.
[2020-03-18 06:26] LABS: Basophils # (auto) 0.02 K/uL (0-0.2); Basophils % (auto) 0.2 %; Eosinophils # (auto) 0.17 K/uL (0-0.5); Eosinophils % (auto) 2.1 %; Hematocrit (blood only) 28.3 % (42-52); Hemoglobin 8.8 g/dL (14.0-18.0); Immature Granulocytes # (auto) 0.21 K/uL (0.00-0.02); Immature Granulocytes % (auto) 2.6 %; Lymphocytes # (auto) 1.01 K/uL (1.2-3.4); Lymphocytes % (auto) 12.4 %; Mean Corpuscular Hemoglobin 31.5 pg (25-34); Mean Corpuscular Hgb Conc 31.1 g/dL (32-36); Mean Corpuscular Volume 101.4 fL (80-100); Monocytes # (auto) 0.81 K/uL (0.11-0.59); Monocytes % (auto) 9.9 %; Neutrophils # (auto) 5.95 K/uL (1.4-6.5); Neutrophils % (auto) 72.8 %; Platelet Count 232 K/uL (130-400); RDW Standard Deviation 59.1 fL (36.4-46.3); Red Blood Count 2.79 M/uL (4.7-6.1); White Blood Count 8.17 K/uL (4.8-10.8)
[2020-03-18] MEDS ORDERED: SODIUM CHLORIDE 0.9% 1000ML 1,000 ML IV PRN (07:00)
[2020-03-18 07:15] LABS: BUN Creatinine Ratio 8.7 (10-20); Calcium 8.7 mg/dl (8.5-10.1); Creatinine Clr Calc Pharmacy 8.5 ml/min; Est GFR (African American) 6.6; Est GFR (Non-African American) 5.7; Magnesium 2.4 mg/dl (1.8-2.4); Phosphorus 2.5 mg/dl (2.5-4.9); Potassium 3.4 mmol/L (3.5-5.1)
--- NOTE | 2020-03-18 08:29 | CT Scan Report ---
CT OF THE ABDOMEN AND PELVIS WITHOUT CONTRAST CLINICAL HISTORY: Hematuria. COMPARISON STUDY: Renal ultrasound June 16, 2018. TECHNIQUE: Axial images of the abdomen and pelvis were obtained without IV contrast. Images were revi ewed in the axial, sagittal, and coronal planes. Automated exposure control was utilized for the toby dy. A dose lowering technique was utilized adhering to the principles of ALARA. FINDINGS: Lung bases are unremarkable. Pacer leads are partially imaged. There is moderate cardiomega ly. There is bilateral gynecomastia. No renal, ureteral or bladder calculi are identified. There is n o hydronephrosis or hydroureter. Moderate distention of the bladder is noted. A small diverticulum ar ising from the left posterolateral aspect the bladder is noted. Sensitivity for detection of urotheli al lesions is diminished on this unenhanced examination. Water attenuation bilateral renal lesions ar e suboptimally assessed on this unenhanced exam but favor cysts. There is hyperdense material within the gallbladder with a few suspected stones. Unenhanced images of the liver, spleen, adrenal glands a nd pancreas are unremarkable. There is a moderate amount of stool within the colon and rectum. There is minimal perirectal/presacral infiltration. No pneumatosis, free air or portal venous gas is presen t. This colonic diverticulosis without evidence for acute diverticulitis. There are brachytherapy see ds within the prostate. There are no suspicious osseous lesions. No enlarged abdominal or pelvic lymp h nodes are noted. The appendix is normal. Nonspecific left forearm soft tissue swelling, partially i bruon on this exam. IMPRESSION: 1. No urinary calculi or hydronephrosis. Moderate distention of the bladder. 2. Moderate amount stool within the colon and rectum. Mild presacral/perirectal infiltration. No tutu l obstruction. 3. Hyperdense material within the gallbladder with a few suspected small stones. No convincing eviden ce for acute cholecystitis. 4. Partially imaged left upper extremity soft tissue swelling. ACT 112: Negative or not required by law. Electronically signed by: Neto Aguilar M.D. 03/18/2020 8:27 AM
[2020-03-18] MEDS ORDERED: LEVOTHYROXINE SODIUM 50 MCG in SYRINGE 0 ML IV SCH (09:00)
--- NOTE | 2020-03-18 09:03 | Pharmacy Report ---
Pharmacy Abx Dose Short Note - Date of Service March 18, 2020 - Assessment & Plan Assessment * 85 year old M receiving Avycaz and vancomycin for treatment of UTI and lower extremity ulcers * Hx MDRO - MRSA in skin cultures and Klebsiella pneumoniae in urine S to amikacin only. ESBL documented by our lab, but I also suspect KPC (which we do not specifically test for here). * Cultures - GNR identified from urine. Identification and sensitivities pending * ID consulted - awaiting recs. Regimen appropriate for now. * ESRD on HD as outpatient. No HD since admission, but planned for today per nephro note yesterday Vancomycin * Random AM levels x2 last two days both in goal range. Suspect some clearance without HD based on slight decrease over 24 hours (without HD) from 19.8 to 17.0 mcg/mL from 03/16 to 03/17. Level will therefore be below 17.0 mcg/mL today, likely 14-15 mcg/mL * HD planned today - will give small supplemental dose HD today and re-check random level in AM Plan * Vancomycin 750 mg IV x1 after HD today * Random vancomycin level with AM labs tomorrow * Continue Avycaz 0.94 g IV q24h - remains appropriate for renal function and culture results/history Pharmacy will continue to follow and will adjust dose/frequency as necessary. Thank you.
[2020-03-18] MEDS: INSULIN GLARGINE SOLOSTAR 100 UNITS/ML 3 ML PEN SC SCH ×2 (09:04→21:06)
[2020-03-18] MEDS: INSULIN ASPART 100 UNITS/ML 3 ML PEN SC SCH ×4 (09:04→21:07)
--- NOTE | 2020-03-18 09:45 | Nephrology Progress Note ---
Date of Service March 18, 2020 Assessment & Plan (1) ESRD (end stage renal disease) on dialysis: * ESRD due to diabetic nephropathy. Dialyzes at [facility] TTS 4hr, 2K 2Ca HCO3 32 Na 140 temp 37, F-180NR, EDW 99 * Admitted over weekend for evaluation of lethargy. Diagnosed w/ UTI and bilateral ankle ulcers. HD held over weekend due to clinical volume contraction and weakness * HD today. Will attempt 1 L UF. No heparin since patient is on Apixaban * AVF w/ soft bruit. L arm has become swollen. Will order US of AVF and ask for evaluation of venous system to the SVC (2) Anemia in chronic kidney disease (CKD): * Hgb 8.8 * Will provide DERRICK w/ HD today (3) Complicated UTI (urinary tract infection): * h/o ESBL Klebsiella UTI 01/07 * Await results of follow up cx (4) Venous stasis ulcers of both lower extremities: * Ortho managing. They are considering further debridement * MRSA - given 2g IV Vanco while in ED 03/15/20 (5) Atrial fibrillation: * On Metoprolol & Apixaban (6) Alzheimer's dementia: * I spoke w/ patient's in November about his clinical decline and poor functional status. She voiced understanding and requested DNR/DNI status for her . She wanted to continue medical support including HD Admission and Anticipated Discharge Date Admission Date: March 15, 2020 Subjective Mr. Holder was seen & examined in his hospital room this morning. He was alert but oriented to self only. He became agitated when discussing dialysis or his foot ulcers. Review of Systems Constitutional: + weakness; no fever Eyes: no problem reported Ear, Nose, Mouth, Throat: no problem reported Respiratory: no dyspnea Cardiovascular: no chest pain Gastrointestinal: no abdominal pain and no diarrhea/loose stools Musculoskeletal: no back pain Integumentary: no rash Neurologic: no dizziness Physical Exam Constitutional: + frail appearing; not in distress Eyes: PERRL, conjunctivae normal, anicteric sclerae ENMT: external ear and nose normal, oropharynx normal Neck: trachea midline, no thyromegaly Respiratory: normal respiratory effort, lungs clear to auscultation Cardiovascular: Rate/Rhythm: + irregularly irregular Gastrointestinal (Abdomen): normal bowel sounds, soft, nontender, no hepatosplenomegaly Musculoskeletal: Extremities: no cyanosis Neurologic: awake (oriented to self only) Results & Data ([facility]) Vital Signs (Past 12 Hours) Vital Signs Temp Pulse Pulse Resp BP Pulse Ox 03/18/20 07:29 36.8 C 72 20 105/61 94 03/18/20 02:56 36.5 C 68 20 95/56 L 95 03/18/20 01:13 65 03/17/20 23:16 36.5 C 63 20 92/60 L 98 Laboratory Results Laboratory Tests 03/18/20 03/18/20 06:08 06:08 WBC 8.17 Hgb 8.8 L Hct 28.3 L Plt Count 232 Sodium 138 Potassium 3.4 L Chloride 102 Carbon Dioxide 28 BUN 68 H Creatinine 7.82 H* D Glucose 84 PG Care Time/CCT Total # of Minutes Spent Total Time Spent with Patient: Total time spent is greater than 50% in coordi nation of care (as documented) at patient's floor/unit and/or counseling patient: Coding Level of Care Code 42936 Subseq Hosp Care Lvl 3 Diagnoses ESRD (end stage renal disease) on dialysis N18.6; Z99.2 Anemia in chronic kidney disease (CKD) N18.9; D63.1 Complicated UTI (urinary tract infection) N39.0 Venous stasis ulcers of both lower extremities I83.019; I83.029; L97.919; L97.929 Atrial fibrillation I48.91 Atrial fibrillation type: unspecified Alzheimer's dementia G30.9; F02.80 (1) Atrial fibrillation Atrial fibrillation type: unspecified Qualified Code(s): I48.91 - Unspecified atrial fibrillation
[2020-03-18] MEDS ORDERED: EPOETIN ALFA 10,000 UNITS/ML VIAL IV ONE (10:00)
--- NOTE | 2020-03-18 10:17 | Orthopedic Progress Note ---
Date of Service March 18, 2020 Assessment & Plan (1) Decubitus ulcer of heel, bilateral: B/L heel ulcers. Continue daily dressing changes, waffle boots. IV antibiotics, complicated UTI Will be starting Dialysis Will need continued supportive care. Uncertain if repeat I & D will benefit the patient. Will discuss any other tx with Dr. Galdamez. Options include wound care, repeat I & D, partial calcanectomy, and amputation. Will continue to monitor the wound throughout the week. Admission and Anticipated Discharge Date Admission Date: March 15, 2020 Subjective No hx today. Confused. Patient was alert but unable to provide any other hx. Physical Exam Constitutional: no acute distress Musculoskeletal: Bilateral feet: New dressings placed today so the wraps were moved to visualize the ulcerations. Bilateral heel ulcers. Right foot--stable ulceration with argelia in place at the edges. There is some improvement in the ulcer from previous exams post Theraskin graft. Left foot: Argelia in place at the heel ulcer. There is a darkened eschar at the ulcerated area. No significant drainage today. Psychiatric: Orientation: alert Results & Data ([facility]) Vital Signs (Past 12 Hours) Vital Signs Temp Pulse Pulse Resp BP Pulse Ox 03/18/20 07:29 36.8 C 72 20 105/61 94 03/18/20 02:56 36.5 C 68 20 95/56 L 95 03/18/20 01:13 65 03/17/20 23:16 36.5 C 63 20 92/60 L 98
[2020-03-18] MEDS ORDERED: POTASSIUM CHLORIDE 20 MEQ TABCR PO ONE (10:30)
[2020-03-18] MEDS ORDERED: VANCOMYCIN HCL 750 MG in SODIUM CHLORIDE 0.9% 250 ML IV SCH (13:00)
[2020-03-18 16:06] LABS: Hematocrit (blood only) 29.5 % (42-52)
[2020-03-18] MEDS: METOPROLOL SUCC 25MG EXT REL TAB PO SCH ×2 (16:56→21:08)
[2020-03-18] MEDS: DOCUSATE SODIUM 100 MG CAP PO SCH ×2 (16:57→21:05)
[2020-03-18] MEDS: ESCITALOPRAM OXALATE ORAL SOLN 5 MG/5 ML PO SCH ×2 (16:57→17:56)
[2020-03-18] MEDS: FAMOTIDINE 10 MG TABLET PO SCH ×2 (16:57→17:55)
[2020-03-18] MEDS ORDERED: SODIUM CHLORIDE 0.9% 1000ML 250 ML IV ONE ×2 (17:10→17:41)
--- NOTE | 2020-03-18 17:52 | Hospitalist Progress Note ---
Date of Service March 18, 2020 Assessment & Plan (1) Acute metabolic encephalopathy: (2) Complicated UTI (urinary tract infection): Patient is an 85 Yr male with H/O ESRD on HD, IDDM, dementia, chronic atrial fibrillation, CAD and other medical problems as below who presents from [facility] with lethargy x 1 week with multidrug-resistant Klebsiella urinary tract infection. Acute metabolic encephalopathy Complicated UTI Foot Wounds/Ulcers Possible Sepsis-POA H/O MRSA Outpatient UTI with 03/11 culture growing multidrug-resistant Klebsiella pneumonia --CT Head: No acute intracranial abnormality. 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 --CXR: No acute cardiopulmonary findings. No change in appearance of the chest. Blood Culture: No growth to date Urine Culture: Gram-negative bacilli Lactate levels normalized with IV fluids Continue vancomycin, Avycaz Day #4 Consulted ID--pending Appreciate orthopedics input Continue wound care May need surgical procedure on heel ulcers Blood pressure low today and patient more lethargic Give IV fluids Check lactate level Clinically seems to be deteriorating Low threshold to transfer to ICU for pressors Discussed with --Appreciate Input Updated Patient's over phone in detail Consider broadening IV antibiotics Transient hematuria noted--Eliquis held Palliative care consulted to address goals of care Hypokalemia Hypophosphatemia Normal magnesium level Replete electrolytes as needed (3) Diabetic ulcer of left heel associated with diabetes mellitus due to underlying condition: Management as above (4) MRSA infection: Follows with wound care clinic for left heel ulcer H/O recent surgical debridement of Left heel ulcer by Dr. Galdamez on 02/21/20 Wound culture grew MRSA ID consulted Management as above (5) Diabetes mellitus type 2, insulin dependent: Continue Basal/bolus insulin while in-patient Monitor BSG AC HS Insulin adjusted due to hypoglycemic episodes (6) ESRD (end stage renal disease) on dialysis: on HD Nephrology consulted to assist with dialysis Could not tolerate hemodialysis secondary to low blood pressure today (7) Atrial fibrillation: Continue metoprolol Eliquis held due to hematuria (8) Hypothyroidism: Continue levothyroxine Dementia Unknown baseline No agitation DVT Px: Eliquis--held due to hematuria Code status: DNR/DNI PCP: at [facility] Disposition: Case management consulted to help with discharge plan Admission and Anticipated Discharge Date Admission Date: March 15, 2020 Subjective Patient is seen and examined at bedside Very lethargic today Unable to provide any meaningful history Did not tolerate hemodialysis due to low blood pressure Blood culture no growth to date Afebrile Saturating well on room air Urine culture pending Updated patient's in detail over the phone Discussed with casket inspector Dr. Candelario Denies chest pain, SOB-- ? reliability Transient hematuria noted overnight Very poor oral intake Review of Systems Review of Systems: Unobtainable due to reduced consciousness Physical Exam Physical Exam: Physical Exam: Vitals signs as noted above General Appearance:Moderately built and nourished, no apparent distress, Chronic ill appearing, Drowsy Head: normocephalic, Atraumatic Eyes: normal inspection, EOMI Neck: supple, Trachea midline Respiratory/Chest: Decreased breath sounds, CTA Cardiovascular: Paced rhythm, no murmur, +Pacemaker Abdomen/GI:Soft, Non tender, Bowel sounds present Extremities/Musculoskelatal:normal inspection, B/L LE Foot/Heel wounds/Ulcers Neurologic/Psych: Lethargic, Moves all extremities Skin: normal color, warm, + Vertical well healed surgical scar Results & Data Results & Data ([facility]) Vital Signs (Past 12 Hours) Vital Signs Temp Pulse Pulse Pulse Resp BP BP 03/18/20 15:54 36.4 C L 66 19 63/38 L 03/18/20 15:28 79 03/18/20 15:20 36.4 C L 60 80/45 L 03/18/20 15:10 79 79/50 L 03/18/20 15:06 79 60/28 L 03/18/20 15:03 79 52/32 L 03/18/20 15:00 79 65/38 L 03/18/20 14:40 79 82/49 L 03/18/20 14:25 36.4 C L 66 79 03/18/20 12:03 36.8 C 71 22 91/51 L 03/18/20 07:29 36.8 C 72 20 BP Pulse Ox 03/18/20 15:54 98 03/18/20 15:28 03/18/20 15:20 03/18/20 15:10 03/18/20 15:06 03/18/20 15:03 03/18/20 15:00 03/18/20 14:40 03/18/20 14:25 03/18/20 12:03 99 03/18/20 07:29 105/61 94 (1) Diabetic ulcer of left heel associated with diabetes mellitus due to underlying condition Non-pressure ulcer stage: unspecified non-pressure ulcer stage Qualified Code(s): E08.621 - Diabetes mellitus due to underlying condition with foot ulcer; L97.429 - Non-pressure chronic ulcer of left heel and midfoot with unspecified severity (2) Atrial fibrillation Atrial fibrillation type: unspecified Qualified Code(s): I48.91 - Unspecified atrial fibrillation
[2020-03-18] MEDS: CEFTAZIDIME AVIBACTAM IV SCH (18:58)
[2020-03-18] MEDS: SODIUM CHLORIDE 0.9% IV SCH (18:58)
[2020-03-18] MEDS: ATORVASTATIN 40 MG TAB PO SCH (21:07)
[2020-03-19] MEDS: LEVOTHYROXINE SODIUM 100 MCG TABLET PO SCH (06:35)
[2020-03-19 07:36] LABS: Hematocrit (blood only) 27.9 % (42-52); Hemoglobin 8.6 g/dL (14.0-18.0); Mean Corpuscular Hemoglobin 31.3 pg (25-34); Mean Corpuscular Hgb Conc 30.8 g/dL (32-36); Mean Corpuscular Volume 101.5 fL (80-100); Mean Platelet Volume 9.7 fL (7.4-10.4); Platelet Count 219 K/uL (130-400); RDW Coefficient of Variation 15.9 % (11.5-14.5); RDW Standard Deviation 58.7 fL (36.4-46.3); Red Blood Count 2.75 M/uL (4.7-6.1); White Blood Count 8.04 K/uL (4.8-10.8)
--- NOTE | 2020-03-19 07:37 | Ultrasound Report ---
US hemodialysis access CLINICAL HISTORY: swollen L arm - assess AV fistula back to SVC COMPARISON STUDY: Ultrasound hemodialysis access 10/04/2019.. FINDINGS: Real-time sonographic imaging of the left upper extremity was performed with surgical device sales representative images submitted. The patient's AV fistula appears patent. No fluid collections are masses identifie d. IMPRESSION: The patient's left AV fistula is patent. ACT 112: Negative or not required by law. Electronically signed by: Alek Dennis M.D. 03/19/2020 7:35 AM
[2020-03-19 08:26] LABS: BUN Creatinine Ratio 8.3 (10-20); Calcium 8.8 mg/dl (8.5-10.1); Creatinine Clr Calc Pharmacy 8.6 ml/min; Est GFR (African American) 6.7; Est GFR (Non-African American) 5.8; Potassium 3.5 mmol/L (3.5-5.1)
[2020-03-19] MEDS: INSULIN ASPART 100 UNITS/ML 3 ML PEN SC SCH ×4 (09:24→21:01)
[2020-03-19] MEDS: DOCUSATE SODIUM 100 MG CAP PO SCH ×2 (09:24→20:33)
[2020-03-19] MEDS: METOPROLOL SUCC 25MG EXT REL TAB PO SCH (09:25)
[2020-03-19] MEDS: ESCITALOPRAM OXALATE ORAL SOLN 5 MG/5 ML PO SCH (09:25)
[2020-03-19] MEDS ORDERED: SODIUM CHLORIDE 0.9% 1000ML 1,000 ML IV PRN (09:58)
--- NOTE | 2020-03-19 10:54 | Nephrology Progress Note ---
Date of Service March 19, 2020 Assessment & Plan (1) ESRD (end stage renal disease) on dialysis: * ESRD due to diabetic nephropathy. Dialyzes at [facility] TTS 4hr, 2K 2Ca HCO3 32 Na 140 temp 37, F-180NR, EDW 99 * L arm doppler reveals patent dialysis access. Discussed arm swelling w/ Dr. Acosta this am. Patient has HeRO graft in place. He required [employer] 03/06/20. Edema is expected to improve with time * Initially planned to dialyze today for 2 hours for urea clearance. No heparin as patient is on Apixaban. This afternoon patient's condition has deteriorated. SBP now in the 60's. Primary service has transferred patient to the ICU. I have placed a stop order on HD today due to hemodynamic instability and notified the HD RN. Will reassess clinical condition in am (2) Anemia in chronic kidney disease (CKD): * Hgb 8.8 * Will provide DERRICK w/ next HD (3) Complicated UTI (urinary tract infection): * Urine cx + MDR Klebsiella * On Avycaz IV * Await ID consult (4) Venous stasis ulcers of both lower extremities: * Ortho managing. They are considering further debridement * MRSA - given 2g IV Vanco while in ED 03/15/20 (5) Atrial fibrillation: * On Metoprolol & Apixaban (6) Alzheimer's dementia: * I spoke w/ patient's in November 2019 about his clinical decline and poor functional status. She voiced understanding and requested DNR/DNI status for her . She wanted to continue medical support including HD Admission and Anticipated Discharge Date Admission Date: March 15, 2020 Subjective Mr. Holder was seen & examined in his hospital room this morning. He is lethargic but will awaken to voice. He is oriented to self only. HD terminated after one hour yesterday due to relative hypotension Review of Systems Review of Systems: Unobtainable due to cognitive status Physical Exam Constitutional: + frail appearing; not in distress Eyes: PERRL, conjunctivae normal, anicteric sclerae ENMT: external ear and nose normal, oropharynx normal Neck: trachea midline, no thyromegaly Respiratory: normal respiratory effort, lungs clear to auscultation Cardiovascular: Rate/Rhythm: + irregularly irregular Gastrointestinal (Abdomen): normal bowel sounds, soft, nontender, no hepatosplenomegaly Musculoskeletal: L heel wrapped Neurologic: awake (oriented to self only) Results & Data ([facility]) Vital Signs (Past 12 Hours) Vital Signs Temp Pulse Pulse Resp BP Pulse Ox 03/19/20 08:46 106/67 03/19/20 07:16 36.3 C L 64 18 89/47 L 94 03/19/20 03:25 36.2 C L 63 17 91/55 L 98 03/18/20 23:59 63 03/18/20 23:19 36.8 C 64 16 95/56 L 98 Laboratory Results Laboratory Tests 03/19/20 03/19/20 07:11 07:11 WBC 8.04 Hgb 8.6 L Hct 27.9 L Plt Count 219 Sodium 138 Potassium 3.5 Chloride 103 Carbon Dioxide 26 BUN 64 H Creatinine 7.75 H* Glucose 66 L PG Care Time/CCT Total # of Minutes Spent Total Time Spent with Patient: Total time spent is greater than 50% in coordination of care (as documented) at patient's floor/unit and/or counseling patient: Coding Level of Care Code 76950 Subseq Hosp Care Lvl 3 Diagnoses ESRD (end stage renal disease) on dialysis N18.6; Z99.2 Anemia in chronic kidney disease (CKD) N18.9; D63.1 Complicated UTI (urinary tract infection) N39.0 Venous stasis ulcers of both lower extremities I83.019; I83.029; L97.919; L97.929 Atrial fibrillation I48.91 Atrial fibrillation type: unspecified Alzheimer's dementia G30.9; F02.80 (1) Atrial fibrillation Atrial fibrillation type: unspecified Qualified Code(s): I48.91 - Unspecified atrial fibrillation
--- NOTE | 2020-03-19 14:23 | Pharmacy Report ---
Pharmacy Abx Dose Short Note - Date of Service March 19, 2020 - Assessment & Plan Assessment * 85 year old M receiving Avycaz and vancomycin for treatment of UTI and lower extremity ulcers * Hx MDRO - MRSA in skin cultures and Klebsiella pneumoniae in urine S to amikacin only. ESBL documented by our lab, but I also suspect KPC * Current urine culture with KPC (MDR Klebsiella pneumoniae) - Avycaz remains appropriate although we do not report sensitivities for this at this time * ESRD on HD as outpatient. No HD since admission, but planned for today per nephro note yesterday Vancomycin * Suspect some clearance without HD based on slight decrease over 24 hours ( without HD) from 19.8 to 17.0 mcg/mL from 03/16 to 03/17. * Patient only tolerated 45 minutes of HD yesterday. Despite that, vancomycin level was not supratherapeutic this AM. * An additional 2 hours planned today per nephrology - will give supplemental vancomycin post-HD. However, added * HD planned today - will give small supplemental dose HD today and re-check random level in AM Plan * Vancomycin 750 mg IV x1. Label comments: "Give immediately AFTER hemodialysis. HOLD if patient is *not* dialyzed today or if he is dialyzed for LESS THAN 2 hours (OK to give if he tolerates full 2 hour session or more)" * Random vancomycin level with AM labs tomorrow * Continue Avycaz 0.94 g IV q24h - remains appropriate for renal function and culture results Pharmacy will continue to follow and will adjust dose/frequency as necessary. Thank you.
[2020-03-19] MEDS ORDERED: VANCOMYCIN HCL 750 MG in SODIUM CHLORIDE 0.9% 250 ML IV SCH (15:00)
--- NOTE | 2020-03-19 15:04 | Palliative Care Consultation ---
Date of Consultation March 19, 2020 Assessment & Plan (1) Goals of care, counseling/discussion: Patient is an 85-year-old male with a past medical history significant for CKD stage V-on HD, CHF, A. fib, CAD-status post CABG, ICM O-status post pacemaker/AICD 2013, hypertension, diabetes-A1c 6.1 in September, GERD, dementia, depression, hypothyroidism, chronic venous insufficiency with bilateral heel ulcers, obesity/MILE who was sent to [facility] from [facility] on 03/15 for continued lethargy of 1 week duration and new onset hematuria. Admission evaluation included a CT scan that was negative for any acute findings, urine positive for multidrug-resistant Klebsiella patient with chronic bilateral heel wounds- underwent debridement on 02/22, biopsy positive for osteomyelitis. Patient currently on IV vancomycin as well as Avycaz. Patient's dialysis was held on 03/16 due to increased weakness and volume contraction-he did undergo HD on 03/18 and is planned for HD today. Patient has remained lethargic and minimally responsive yesterday and today. Patient's creatinine on admission was 5.1-was 7.75 today, hemoglobin on admission was 9.4, 8.6 today. Patient underwent angioplasty for a nonfunctioning left upper extremity AV fistula on 03/06. -Patient seen and examined in room 261-patient did not respond to voice or touch, appeared comfortable at rest. Patient sitting upright in bed-bed in chair position. -Patient only taking sips orally. -Spoke to patient's at length by phone regarding goals of care given patient's advanced dementia, multidrug-resistant UTI as well as nonhealing bilateral foot wounds. Patient's current CODE STATUS is DNR. voiced understanding that he is not doing well but stated she "did not want to give up on him yet". -Patient and have been for cysts over 60 years, they have 2 children a daughter and a son that both live locally. did not want me to contact the daughter or the son at this time, her son is on vacation and plans to return sometime tomorrow. -Suggested to patient's that she come in and see him along with her children to assess his current condition compared to the last time I saw him. reports she is not sure that he always recognizes her but did report he did seem to recognize the son recently during the window visit at [facility]. We will plan to follow-up with the and have further discussions with patient's family regarding goals of care including possible transition to comfort care. -Patient has been at [facility] since 05/30/2019. states she is unable to care for him herself at home. -PPS 30% (2) ESRD (end stage renal disease) on dialysis: Creatinine continues to rise, was 7.75 today (3) Alzheimer's dementia: Unable to determine FAST score due to being minimally responsive (4) Complicated UTI (urinary tract infection): Multidrug-resistant Klebsiella-on IV Avycaz (5) Decubitus ulcer of heel, bilateral: Status post debridement on 02/22, biopsies positive for osteomyelitis, history of MRSA-on IV vancomycin (6) Anemia in chronic kidney disease (CKD): Hemoglobin 8.6 (7) Diabetes mellitus type 2, insulin dependent: Continue insulin for blood sugar control (8) CHF (congestive heart failure), NYHA class III: On Eliquis and metoprolol History of Present Illness Reason for Consultation: Address goals of care Requesting Physician: Dr France Attending Physician: Chandu Hernandez MD History of Present Illness Chart reviewed, patient seen and examined, no family at bedside. Spoke with patient's Sonja by phone, Patient is an 85-year-old male with a past medical history significant for CKD stage V-on HD, CHF, A. fib, CAD-status post CABG, ICM O-status post pacemaker/AICD 2013, hypertension, diabetes-A1c 6.1 in September, GERD, dementia, depression, hypothyroidism, chronic venous insufficiency with bilateral heel ulcers, obesity/MILE who was sent to [facility] from [facility] on 03/15 for continued lethargy of 1 week duration and new onset hematuria. Admission evaluation included a CT scan that was negative for any acute findings, urine positive for multidrug-resistant Klebsiella patient with chronic bilateral heel wounds- underwent debridement on 02/22, biopsy positive for osteomyelitis. Patient currently on IV vancomycin as well as Avycaz. Patient's dialysis was held on 03/16 due to increased weakness and volume contraction-he did undergo HD on 03/18 and is planned for HD today. Patient has remained lethargic and minimally responsive yesterday and today. Patient's creatinine on admission was 5.1-was 7.75 today, hemoglobin on admission was 9.4, 8.6 today. Patient underwent angioplasty for a nonfunctioning left upper extremity AV fistula on 03/06. -Patient seen and examined in room 261-patient did not respond to voice or touch, appeared comfortable at rest. Patient sitting upright in bed-bed in chair position. -Patient only taking sips orally. -Spoke to patient's at length by phone regarding goals of care given patient's advanced dementia, multidrug-resistant UTI as well as nonhealing bilateral foot wounds. Patient's current CODE STATUS is DNR. voiced understanding that he is not doing well but stated she "did not want to give up on him yet". -Patient and have been for cysts over 60 years, they have 2 children a daughter and a son that both live locally. did not want me to contact the daughter or the son at this time, her son is on vacation and plans to return sometime tomorrow. -Suggested to patient's that she come in and see him along with her children to assess his current condition compared to the last time I saw him. reports she is not sure that he always recognizes her but did report he did seem to recognize the son recently during the window visit at [facility]. We will plan to follow-up with the and have further discussions with patient's family regarding goals of care including possible transition to comfort care. -Patient has been at [facility] since 05/30/2019. states she is unable to care for him herself at home. -PPS 30% Allergies Allergy/AdvReac Type Severity Reaction Status Date / Time clindamycin AdvReac Mild Nausea Verified 03/15/20 17:40 Home Medications Home Medications Medication Instructions Recorded Confirmed Type Calcium 600 + D(3) 1 cap PO QAM 09/21/19 03/15/20 History acetaminophen [Tylenol Extra 1,000 mg PO Q8 PRN 09/21/19 03/15/20 History Strength] acetaminophen [Tylenol] 650 mg PO Q4 PRN MDD 3G 09/21/19 03/15/20 History ascorbic acid (vitamin C) [Vitamin 1,000 mg PO QAM 09/21/19 03/15/20 History C] atorvastatin [Lipitor] 80 mg PO HS 09/21/19 03/15/20 History cholecalciferol (vitamin D3) 25 mcg PO QAM 09/21/19 03/15/20 History [Vitamin D3] docusate sodium [Colace] 100 mg PO BID 09/21/19 03/15/20 History famotidine 10 mg PO 4XWK 09/21/19 03/15/20 History levothyroxine 100 mcg PO DAILY@0700 09/21/19 03/15/20 History nitroglycerin [Nitrostat] 0.4 mg SUBLINGUAL UD PRN 09/21/19 03/15/20 History oxymetazoline [Afrin Sinus 2 spray INTRANASAL Q8 PRN 09/21/19 03/15/20 History (oxymetazoline)] Basaglar KwikPen U-100 Insulin 18 unit SUBCUT Q12 10/04/19 03/15/20 History Eliquis 2.5 mg PO BID 11/16/19 03/15/20 History gabapentin 600 mg PO BID 11/16/19 03/15/20 History bisacodyl [Dulcolax (bisacodyl)] 10 mg [place] DIRECTED PRN 11/25/19 03/15/20 History pediatric multivitamin 1 tab PO QPM 11/25/19 03/15/20 History calcium acetate 667 mg PO UD 02/21/20 03/15/20 History escitalopram oxalate [Lexapro] 7.5 mg PO QAM 02/21/20 03/15/20 History metoprolol succinate 12.5 mg PO BID 02/21/20 03/15/20 History polyethylene glycol 3350 17 g PO DAILY PRN 02/21/20 03/15/20 History oxycodone 5 mg PO Q8H PRN #20 tab 02/23/20 03/15/20 Rx insulin aspart U-100 [Novolog 1 sliding scale dose SUBCUT ACHS 03/15/20 03/15/20 History PenFill U-100 Insulin] insulin aspart U-100 [Novolog 5 unit SUBCUT .3XW/UD 03/15/20 03/15/20 History U-100 Insulin aspart] Patient History Medical History Alzheimer's dementia Anemia in chronic kidney disease (CKD) Atrial fibrillation Coronary artery disease S/P CABG X 4 (~2002) Diabetes IDDM 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 Hemodialysis patient FISTULA LEFT ARM. receiving diaylsis Wednesday, & Wednesday @ [facility] History of kidney stones History of left bundle branch block (LBBB) HTN (hypertension) Hypercholesteremia Hypothyroidism Ischemic cardiomyopathy s/p insertion of pacer/icd 2013. Stable. EF 65-70% on 09/2019 echo. 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 Rate controlled on BB, anticoagulated with Eliquis. Prostate cancer Secondary hyperparathyroidism Spinal stenosis Surgical History H/O four vessel coronary artery bypass graft CABG X 4 (~2002) H/O total knee replacement RIGHT Hematoma LEFT ARM FISTULA History of brachytherapy History of cardioversion unsuccessful History of surgical removal of pilonidal cyst Hx of hemorrhoidectomy Presence of implantable cardioverter-defibrillator (ICD) PPM/ICD IMPLANTED 2013; [employer] LAST PACER CHECK S/P arteriovenous (AV) fistula creation LUE S/P dialysis catheter insertion Family History Sister Kidney stones Son Kidney stones Mother Diabetes Hypertension Heart disease Aunt Colon cancer Denies family history of Ovarian cancer Prostate cancer Myocardial infarction Breast cancer Social History Smoking Status: Former smoker Second Hand Exposure: No; Hx Alcohol Use: No Hx Substance Use: No Preferred Language: Arabic Communication Ability: Impaired Visual Impairment: Limited Hearing Ability: Normal Early Childhood Services Coordinator Required: No Beliefs That Will Affect Care: None marital status: Current Living Situation: Half-Way Current Living Situation Comment: [facility] current occupational status: retired Feels Safe at Home: Yes Safety Concerns: Feels Safe At This Time Assistive Devices: None Review of Systems Review of Systems: Unobtainable due to reduced consciousness Physical Exam Physical Exam: PE: Patient in bed-bed in chair position, no acute distress at rest Patient did not arouse to voice or touch HEENT: Moist mucous membranes, positive drooling Respirations: Diminished breath sounds due to poor inspiratory effort CV: Irregular, rate controlled, trace to 1+ lower extremity edema Abdomen: Soft, no grimace on palpation Extremities: Positive swelling left upper extremity Neuro: Unresponsive to voice or touch Results & Data ([facility]) Vital Signs (Past 12 Hours) Vital Signs Temp Pulse Pulse Pulse Resp BP Pulse Ox 03/19/20 14:52 94.3 F L 03/19/20 12:07 86/53 L 03/19/20 12:06 60 16 96/53 L 100 03/19/20 08:46 106/67 03/19/20 07:30 61 03/19/20 07:16 97.3 F L 64 18 89/47 L 94 03/19/20 03:25 97.2 F L 63 17 91/55 L 98 PG Care Time/CCT Total # of Minutes Spent Total Time Spent with Patient: Total time spent 70 minutes with greater than 50% of the time at bedside and counseling by phone on the unit, collaborated with attending physician. Coding Level of Care Code 32600 Inpt Consult Level 3 Diagnoses Goals of care, counseling/discussion Z71.89 ESRD (end stage renal disease) on dialysis N18.6; Z99.2 Alzheimer's dementia G30.9; F02.80 Complicated UTI (urinary tract infection) N39.0 Decubitus ulcer of heel, bilateral L89.619; L89.629 Anemia in chronic kidney disease (CKD) N18.9; D63.1 Diabetes mellitus type 2, insulin dependent E11.9; Z79.4 CHF (congestive heart failure), NYHA class III I50.9 Time Spent (min) 70
--- NOTE | 2020-03-19 15:27 | Hospitalist Progress Note ---
Date of Service March 19, 2020 Assessment & Plan (1) Complicated UTI (urinary tract infection): Patient is an 85 Yr male with H/O ESRD on HD, IDDM, dementia, chronic atrial fibrillation, CAD and other medical problems as below who presents from [facility] with lethargy x 1 week with multidrug-resistant Klebsiella urinary tract infection. Acute metabolic encephalopathy likely multifactorial due to ongoing infection and is complicated by end-stage renal disease and Alzheimer's dementia Foot Wounds/Ulcers Possible Sepsis-POA H/O MRSA Outpatient UTI with 03/11 culture growing multidrug-resistant Klebsiella pneumonia --CT Head: No acute intracranial abnormality. 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 --CXR: No acute cardiopulmonary findings. No change in appearance of the chest. Blood Culture: No growth to date Urine Culture: Gram-negative bacilli-ESBL and is resistant to multiple antibiotics Continue vancomycin, Avycaz Day #4 Consulted ID--pending Appreciate orthopedics input Continue wound care Hypotension Blood pressure low today and patient more lethargic Give IV fluids rest for now Clinically deteriorating Low threshold to transfer to ICU for pressors Discussed with --Appreciate Input Updated Patient's over phone in detail Consider broadening IV antibiotics Appreciate palliative care input and recommendation Overall prognosis remains very poor Will discuss with for further action from here Hypokalemia Hypophosphatemia Normal magnesium level Replete electrolytes as needed (2) Acute metabolic encephalopathy: As above (3) Diabetic ulcer of left heel associated with diabetes mellitus due to underlying condition: Management as above With input and recommendation Needed for any surgery at this time (4) MRSA infection: Follows with wound care clinic for left heel ulcer H/O recent surgical debridement of Left heel ulcer by Dr. Galdamez on 02/21/20 Wound culture grew MRSA ID consulted Management as above (5) Diabetes mellitus type 2, insulin dependent: Continue Basal/bolus insulin while in-patient Monitor BSG AC HS Insulin adjusted due to hypoglycemic episodes (6) ESRD (end stage renal disease) on dialysis: on HD Nephrology consulted to assist with dialysis Could not tolerate hemodialysis secondary to low blood pressure today Dialysis has been possible due to low blood pressure (7) Atrial fibrillation: Continue metoprolol Eliquis held due to hematuria (8) Hypothyroidism: Continue levothyroxine Dementia Unknown baseline No agitation DVT Px: Eliquis--held due to hematuria Code status: DNR/DNI PCP: at [facility] Disposition: Case management consulted to help with discharge plan Admission and Anticipated Discharge Date Admission Date: March 15, 2020 Subjective 03/19/2020 The patient was seen and examined in medical telemetry unit He has been severe lethargic since last evening and has not been communicating during examination this morning He could hardly open his eyes on commands but otherwise did not communicate with me Patient went into Septic Shock this afternoon. Discussed with the Special Needs Teacher and he was transferred to ICU Plan to maintain BP for now and decide for further management plan after discussing with the in person. Review of Systems Review of Systems: Unobtainable due to reduced consciousness Physical Exam Physical Exam: Lying in bed without any acute distress but remained profoundly ill and lethargic Constitutional: well developed, well nourished, + ill appearing and + obese Eyes: Closed ENMT: external ear and nose normal, oropharynx normal Neck: trachea midline, no thyromegaly Respiratory: normal respiratory effort; no respiratory distress Auscultation: + diminished lung sounds (Bilaterally with minimal crackles at the base) Cardiovascular: Rate/Rhythm: + abnormal rate and + abnormal rhythm Heart Sounds: + murmur (2/6 ESM over precordium) Extremities: + edema Gastrointestinal (Abdomen): Inspection/Auscultation: abdomen normal to inspection and normal bowel sounds; abdomen not distended Musculoskeletal: Has severe osteoarthritis without any acute arthritis in any joints Skin: Chronic skin changes in lower extremities. Bilateral foot ulceration Neurologic: Remains minimally responsive Lymphatic: no cervical or axillary lymphadenopathy Results & Data Results & Data ([facility]) Vital Signs (Past 12 Hours) Vital Signs Temp Pulse Pulse Pulse Resp BP Pulse Ox 03/19/20 15:05 61 16 70/38 L 96 03/19/20 14:52 34.6 C L 03/19/20 12:07 86/53 L 03/19/20 12:06 60 16 96/53 L 100 03/19/20 08:46 106/67 03/19/20 07:30 61 03/19/20 07:16 36.3 C L 64 18 89/47 L 94 03/19/20 03:25 36.2 C L 63 17 91/55 L 98 Laboratory Results Short CBC 03/18/20 03/19/20 Range/Units 15:50 07:11 WBC 8.04 (4.8-10.8) K/uL Hgb 9.0 L 8.6 L (14.0-18.0) g/dL Hct 29.5 L 27.9 L (42-52) % Plt Count 219 (130-400) K/uL [facility] 03/19/20 07:11 Sodium 138 Potassium 3.5 Chloride 103 Carbon Dioxide 26 BUN 64 H Creatinine 7.75 H* Glucose 66 L Calcium 8.8 Medications Administered Current Inpatient Medications Acetaminophen (Acetaminophen 325 Mg Tab) 650 mg PO Q4H PRN PRN Reason: Pain or Fever Stop: 04/14/20 19:48 Apixaban (Apixaban 2.5 Mg Tab) 2.5 mg PO BID [facility] Stop: 04/15/20 09:29 Last Admin: 03/17/20 21:15 Dose: 2.5 mg Documented by: Atorvastatin Calcium (Atorvastatin 40 Mg Tab) 80 mg PO HS [facility] Stop: 04/15/20 20:59 Last Admin: 03/18/20 21:07 Dose: 80 mg Documented by: Dextrose (Dextrose 50% 50 Ml Syringe) 25 - 50 ml IV UD PRN; Protocol PRN Reason: Hypoglycemia Protocol Stop: 04/14/20 19:48 Docusate Sodium (Docusate Sodium 100 Mg Cap) 100 mg PO BID [facility] Stop: 04/15/20 20:59 Last Admin: 03/19/20 09:24 Dose: Not Given Documented by: Escitalopram Oxalate (Escitalopram Oxalate Oral Soln 5 Mg/5 Ml) 7.5 mg PO QAM [facility] Stop: 04/15/20 09:29 Last Admin: 03/19/20 09:25 Dose: Not Given Documented by: Famotidine (Famotidine 10 Mg Tablet) 10 mg PO SuMoWeFr@0800 DANA Stop: 04/16/20 07:59 Last Admin: 03/18/20 17:55 Dose: 10 mg Documented by: Glucagon (Glucagon For Inj 1 Mg Vial) 1 mg SQ UD PRN; Protocol PRN Reason: Hypoglycemia Protocol Stop: 04/14/20 19:48 Glucose (Glucose 10 Tabs/Tube) 4 - 8 tabs PO UD PRN; Protocol PRN Reason: Hypoglycemia Protocol Stop: 04/14/20 19:48 Glucose (Glucose 40% Gel 15 Gm Tube) 15 - 30 gm PO UD PRN; Protocol PRN Reason: Hypoglycemia Protocol Stop: 04/14/20 19:48 Ceftazidime/Avibactam 0.94 gm/ (Sodium Chloride) 54.512 mls @ 28 mls/hr IV Q24H [facility]; Protocol Stop: 03/26/20 17:59 Last Infusion: 03/18/20 21:01 Dose: Infused Documented by: Sodium Chloride (Nss 1000ml) 1,000 mls @ 0 mls/hr IV .Q0M PRN PRN Reason: For Hemodialysis Use ONLY Stop: 03/19/20 15:57 Vancomycin HCl 750 mg/ Sodium (Chloride) 265 mls @ 125 mls/hr IV TODAY@1500 [facility] Stop: 03/19/20 22:00 Last Admin: 03/19/20 14:53 Dose: 125 mls/hr Documented by: Insulin Aspart (Insulin Aspart 100 Units/Ml 3 Ml Pen) 0 units SC ACHS [facility] Stop: 04/15/20 11:29 Last Admin: 03/19/20 12:19 Dose: Not Given Documented by: Insulin Glargine (Insulin Glargine Solostar 100 Units/Ml 3 Ml Pen) 5 units SC BID [facility] Stop: 04/18/20 20:59 Levothyroxine Sodium (Levothyroxine Sodium 100 Mcg Tablet) 100 mcg PO DAILY@0700 [facility] Stop: 04/16/20 06:59 Last Admin: 03/19/20 06:35 Dose: Not Given Documented by: Metoprolol Succinate (Metoprolol Succ 25mg Ext Rel Tab) 12.5 mg PO BID [facility] Stop: 04/15/20 20:59 Last Admin: 03/19/20 09:25 Dose: Not Given Documented by: Miscellaneous (Carbohydrates For Hypoglycemia ) 15 - 30 gm PO UD PRN PRN Reason: Hypoglycemia Protocol Stop: 04/14/20 19:48 Last Admin: 03/18/20 11:34 Dose: 15 gm Documented by: Miscellaneous Information (Consult Pharmacy) 1 ea N/A UD PRN PRN Reason: Consult Stop: 04/14/20 20:14 Miscellaneous Information (Vancomycin Consult Active) 1 ea N/A UD PRN PRN Reason: Consult Stop: 04/15/20 08:14 Oxymetazoline HCl (Oxymetazoline 0.05% 30 Ml Btl) 2 sprays NA Q8 PRN PRN Reason: Nasal Congestion Stop: 04/15/20 14:57 Polyethylene Glycol (Polyethylene (Miralax) 17 Gm Pack) 17 gm PO DAILY PRN PRN Reason: Constipation Stop: 04/14/20 19:48 (1) Atrial fibrillation Atrial fibrillation type: unspecified Qualified Code(s): I48.91 - Unspecified atrial fibrillation (2) Diabetic ulcer of left heel associated with diabetes mellitus due to underlying condition Non-pressure ulcer stage: unspecified non-pressure ulcer stage Qualified Code(s): E08.621 - Diabetes mellitus due to underlying condition with foot ulcer; L97.429 - Non-pressure chronic ulcer of left heel and midfoot with unspecified severity
[2020-03-19] MEDS ORDERED: SODIUM CHLORIDE 0.9% 500 ML IV SCH (15:30)
[2020-03-19] MEDS ORDERED: STAT IV Infusion **Titration per Protocol STA (16:15)
--- NOTE | 2020-03-19 16:41 | Orthopedic Progress Note ---
Date of Service March 19, 2020 Assessment & Plan (1) Decubitus ulcer of heel, bilateral: Patient is apparently being moved for possible sepsis and comfort care. No further surgeries planned at this time. B/L heel ulcers. Continue daily dressing changes, waffle boots. IV antibiotics, complicated UTI Will need continued supportive care. Uncertain if repeat I & D will benefit the patient. Will discuss any other tx with Dr. Galdamez. Options include wound care, repeat I & D, partial calcanectomy, and amputation. Will continue to monitor the wound throughout the week. Admission and Anticipated Discharge Date Admission Date: March 15, 2020 Subjective Patient seen earlier this morning. Not conversant. Not answering questions but did not appear to be in pain. Nursing staff helped with dressing changes. And just speaking with Dr. Hernandez, patient is being moved to a monitored bed for possible sepsis and comfort care. Physical Exam Physical Exam: No overall changes noted on exam of the bilateral heel wounds when comparing them to the photos taken by wound care team yesterday. Left dressing had mild to moderate drainage noted on it. Mild odor at best. Necrotic heel area with argelia noted from previous surgery. Right heel ulcer/necrotic area appears stable. No overt drainage noted. No odor. Wound's redressed. Results & Data ([facility]) Vital Signs (Past 12 Hours) Vital Signs Temp Pulse Pulse Pulse Resp BP Pulse Ox 03/19/20 16:04 60 16 64/33 L 03/19/20 15:40 86 03/19/20 15:05 61 16 70/38 L 96 03/19/20 14:52 34.6 C L 03/19/20 12:07 86/53 L 03/19/20 12:06 60 16 96/53 L 100 03/19/20 08:46 106/67 03/19/20 07:30 61 03/19/20 07:16 36.3 C L 64 18 89/47 L 94
[2020-03-19] MEDS: NOREPINEPHRINE BIT INJ 8 MG in DEXTROSE 5% 500 ML IV SCH (17:05)
--- NOTE | 2020-03-19 17:34 | Critical Care Consultation ---
Date of Consultation March 19, 2020 Assessment & Plan (1) Hypotension: Reason Critically Ill: 85M presenting with Hypotension, Hypothermia, CKD Stage V requiring dialysis, multidrug resistant klebsiella pneumonia UTI and osteomyelitis of L heel. NEURO: -Relatively unresponsive during exam, does not follow commands -Poor mental status likely secondary to acute metabolic encephalopathy alongside worsening Alzheimer's dementia -CT head without acute intracranial abnormality -Continue to monitor for worsening mental status CARDIAC: -Hx Afib, rate controlled -S/P PM placement -Not currently on anticoagulation secondary to hematuria -Fairly significant hypotension, received IVF on the floor with minimal improvement -Currently on Levophed gtt -Prognosis poor, palliative was consulted -Continue atorvastatin -Hold metoprolol RESPIRATORY: -No O2 requirements at this time GI: -DM 2, minced and moist diet -Continue Pepcid RENAL/LYTES: -Plan for dialysis today once blood pressure improves on pressors, Cr 7.75 -Continue to monitor lytes and replete PRN : -Hematuria -Hold on anticoagulation at this time. ENDO: -SSI and basal bolus -Continue levothyroxine HEME: -Anemia at hgb 8.6, continue to monitor ID: -Multidrug resistant Klebsiella UTI on urine culture -MRSA infection of L heel ulcer -Continue treatment with Avycaz and Vancomycin LINES/IV ACCESS: R hand periph CODE STATUS: DNR/DNI DVT PROPHYLAXIS: Held at this time due to hematuria Thank you for allowing us to participate in the care of this patient. Please refer to my attending physician's documentation for any further recommendations. (2) Alzheimer's dementia: (3) ESRD (end stage renal disease) on dialysis: (4) Hypothyroidism: (5) Complicated UTI (urinary tract infection): (6) Acute metabolic encephalopathy: (7) Atrial fibrillation: (8) Diabetes mellitus type 2, insulin dependent: Supervising Physician Co-Signing Physician Notes Dr. Marcelino was resident physician during care of patient. I separately evaluated patient for harris portions of the history and the exam. I was present during the critical portion of medical decision making, and I discussed the case with the resident. I generally agree with the findings and plan. I had a discussion with the patient's and daughter. Patient is DNR/DNI in event of arrest, does not want to "give up on him" his son is returning from a vacation tomorrow. We discussed advanced vascular access as well as his current condition with multiple acute and chronic end-stage medical conditions. Patient would benefit from vasoactive medications, we will administer these through peripheral IV as in discussing advanced vascular access felt the risks outweighed the benefits. Certainly advanced vascular access would not be a single intervention which would have profound certainty to correct his condition especially in the setting of end-stage kidney disease on dialysis which the patient would not be able to undergo given his hypoperfusion. Essentially we have reached a point of no escalation of care and the focus is really optimizing the patient's time in order for his son to see the patient. Patient is critically ill I have personally spent 45 minutes of critical care time in the direct management of this patient. This is a life/limb threatening event. This includes time spent evaluating patient, direct bedside care, chart review, placing orders, interpretation of diagnostic studies, discussion with consultants, patient, and/or family members regarding treatment decisions, as well as other required patient management activities. This time is exclusive of all separately billable procedures, and teaching time and separate from and in addition to any other critical care service time. History of Present Illness Reason for Consultation: Hypotension Attending Physician: Chandu Hernandez MD History of Present Illness Patient is an 85 year old male with PMHx CKD Stage V on hemodialysis, CHF, Afib, CAD s/p CABG, s/p PM, HTN, who had presented after 1 week of continued lethargy and new onset hematuria. His urine was found positive for multi-drug resistant Klebsiella and he was started on appropriate antibiotics. Patient was to have hemodialysis, however, was fairly hypotensive on the floor. Patient transferred to ICU for pressors prior to dialysis. Patient currently minimally responsive and unable to provide any history or description of current situation. Allergies Allergy/AdvReac Type Severity Reaction Status Date / Time clindamycin AdvReac Mild Nausea Verified 03/15/20 17:40 Home Medications Home Medications Medication Instructions Recorded Confirmed Type Calcium 600 + D(3) 1 cap PO QAM 09/21/19 03/15/20 History acetaminophen [Tylenol Extra 1,000 mg PO Q8 PRN 09/21/19 03/15/20 History Strength] acetaminophen [Tylenol] 650 mg PO Q4 PRN MDD 3G 09/21/19 03/15/20 History ascorbic acid (vitamin C) [Vitamin 1,000 mg PO QAM 09/21/19 03/15/20 History C] atorvastatin [Lipitor] 80 mg PO HS 09/21/19 03/15/20 History cholecalciferol (vitamin D3) 25 mcg PO QAM 09/21/19 03/15/20 History [Vitamin D3] docusate sodium [Colace] 100 mg PO BID 09/21/19 03/15/20 History famotidine 10 mg PO 4XWK 09/21/19 03/15/20 History levothyroxine 100 mcg PO DAILY@0700 09/21/19 03/15/20 History nitroglycerin [Nitrostat] 0.4 mg SUBLINGUAL UD PRN 09/21/19 03/15/20 History oxymetazoline [Afrin Sinus 2 spray INTRANASAL Q8 PRN 09/21/19 03/15/20 History (oxymetazoline)] Basaglar KwikPen U-100 Insulin 18 unit SUBCUT Q12 10/04/19 03/15/20 History Eliquis 2.5 mg PO BID 11/16/19 03/15/20 History gabapentin 600 mg PO BID 11/16/19 03/15/20 History bisacodyl [Dulcolax (bisacodyl)] 10 mg WI DIRECTED PRN 11/25/19 03/15/20 History pediatric multivitamin 1 tab PO QPM 11/25/19 03/15/20 History calcium acetate 667 mg PO UD 02/21/20 03/15/20 History escitalopram oxalate [Lexapro] 7.5 mg PO QAM 02/21/20 03/15/20 History metoprolol succinate 12.5 mg PO BID 02/21/20 03/15/20 History polyethylene glycol 3350 17 g PO DAILY PRN 02/21/20 03/15/20 History oxycodone 5 mg PO Q8H PRN #20 tab 02/23/20 03/15/20 Rx insulin aspart U-100 [Novolog 1 sliding scale dose SUBCUT ACHS 03/15/20 03/15/20 History PenFill U-100 Insulin] insulin aspart U-100 [Novolog 5 unit SUBCUT .3XW/UD 03/15/20 03/15/20 History U-100 Insulin aspart] Patient History Medical History Alzheimer's dementia Anemia in chronic kidney disease (CKD) Atrial fibrillation Coronary artery disease S/P CABG X 4 (~2002) Diabetes IDDM 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 Hemodialysis patient FISTULA LEFT ARM. receiving diaylsis Wednesday, & Wednesday @ [facility] History of kidney stones History of left bundle branch block (LBBB) HTN (hypertension) Hypercholesteremia Hypothyroidism Ischemic cardiomyopathy s/p insertion of pacer/icd 2013. Stable. EF 65-70% on 09/2019 echo. Lipoprotein deficiency long term resident Obesity Permanent atrial fibrillation Asymptomatic per cardio 10/24/18. Rate controlled on BB, anticoagulated with Eliquis. Prostate cancer Secondary hyperparathyroidism Spinal stenosis Surgical History H/O four vessel coronary artery bypass graft CABG X 4 (~2002) H/O total knee replacement RIGHT Hematoma LEFT ARM FISTULA History of brachytherapy History of cardioversion unsuccessful History of surgical removal of pilonidal cyst Hx of hemorrhoidectomy Presence of implantable cardioverter-defibrillator (ICD) PPM/ICD IMPLANTED 2013; [employer] LAST PACER CHECK S/P arteriovenous (AV) fistula creation LUE S/P dialysis catheter insertion Family History Sister Kidney stones Son Kidney stones Mother Diabetes Hypertension Heart disease Aunt Colon cancer Denies family history of Ovarian cancer Prostate cancer Myocardial infarction Breast cancer Social History Smoking Status: Former smoker Second Hand Exposure: No; Hx Alcohol Use: No Hx Substance Use: No Preferred Language: Macedonian Communication Ability: Impaired Visual Impairment: Limited Hearing Ability: Normal [employer] Supervisor Required: No Beliefs That Will Affect Care: None marital status: Current Living Situation: Retirement Current Living Situation Comment: [facility] current occupational status: retired Feels Safe at Home: Yes Safety Concerns: Feels Safe At This Time Assistive Devices: None Review of Systems Review of Systems: Unobtainable due to cognitive status and Unobtainable due to reduced consciousness Physical Exam Constitutional: well developed, well nourished, + ill appearing and + obese Eyes: Eyes closed, upon lifting eyelids rapidly return to a closed position. ?Scleral icterus vs scleral edema. Pupils reflexive to light bilaterally ENMT: external ear and nose normal, oropharynx normal Respiratory: normal respiratory effort; no respiratory distress Auscultation: + diminished lung sounds (Bilaterally ) and + crackles (minimal at bases ) Cardiovascular: Rate/Rhythm: + abnormal rate (irr-irr) and + abnormal rhythm Heart Sounds: + murmur (2/6 SE) Extremities: + edema Gastrointestinal (Abdomen): Inspection/Auscultation: abdomen normal to inspection and normal bowel sounds; abdomen not distended Percussion/Palpation: abdomen soft Skin: Chronic skin changes in lower extremities. Bilateral foot dressings, CDI Neurologic: Remains minimally responsive Results & Data Results & [facility] ([facility]) Vital Signs (Past 12 Hours) Vital Signs Temp Pulse Pulse Pulse Resp BP Pulse Ox 03/19/20 16:04 60 16 64/33 L 03/19/20 15:40 86 03/19/20 15:05 61 16 70/38 L 96 03/19/20 14:52 34.6 C L 03/19/20 12:07 86/53 L 03/19/20 12:06 60 16 96/53 L 100 03/19/20 08:46 106/67 03/19/20 07:30 61 03/19/20 07:16 36.3 C L 64 18 89/47 L 94 Resident Activity Tracking Resident Involvement: Resident Care Provided Care Provided: Adult Hospital Medicine (1) Atrial fibrillation Atrial fibrillation type: unspecified Qualified Code(s): I48.91 - Unspecified atrial fibrillation
[2020-03-19] MEDS: CEFTAZIDIME AVIBACTAM IV SCH (18:00)
[2020-03-19] MEDS: SODIUM CHLORIDE 0.9% IV SCH (18:00)
[2020-03-19] MEDS: ATORVASTATIN 40 MG TAB PO SCH (20:33)
[2020-03-19] MEDS ORDERED: INSULIN GLARGINE SOLOSTAR 100 UNITS/ML 3 ML PEN SC SCH (21:00)
[2020-03-20 05:11] LABS: Basophils # (auto) 0.05 K/uL (0-0.2); Basophils % (auto) 0.4 %; Eosinophils # (auto) 0.13 K/uL (0-0.5); Eosinophils % (auto) 1.1 %; Hematocrit (blood only) 32.4 % (42-52); Hemoglobin 9.9 g/dL (14.0-18.0); Immature Granulocytes # (auto) 0.46 K/uL (0.00-0.02); Immature Granulocytes % (auto) 3.8 %; Lymphocytes # (auto) 0.83 K/uL (1.2-3.4); Lymphocytes % (auto) 6.9 %; Mean Corpuscular Hemoglobin 30.8 pg (25-34); Mean Corpuscular Hgb Conc 30.6 g/dL (32-36); Mean Corpuscular Volume 100.9 fL (80-100); Monocytes # (auto) 0.63 K/uL (0.11-0.59); Monocytes % (auto) 5.2 %; Neutrophils # (auto) 9.91 K/uL (1.4-6.5); Neutrophils % (auto) 82.6 %; Nucleated RBC # (auto) 0.03 K/uL (0-0); Nucleated RBC % (auto) 0.3 %; Platelet Count 308 K/uL (130-400); RDW Coefficient of Variation 15.9 % (11.5-14.5); RDW Standard Deviation 58.9 fL (36.4-46.3); Red Blood Count 3.21 M/uL (4.7-6.1); White Blood Count 12.01 K/uL (4.8-10.8)
[2020-03-20 05:47] LABS: BUN Creatinine Ratio 8.1 (10-20); Calcium 8.4 mg/dl (8.5-10.1); Creatinine Clr Calc Pharmacy 7.9 ml/min; Est GFR (African American) 6.1; Est GFR (Non-African American) 5.3; Magnesium 2.2 mg/dl (1.8-2.4); Phosphorus 3.4 mg/dl (2.5-4.9)
--- NOTE | 2020-03-20 05:55 | Critical Care Progress Note ---
Date of Service March 20, 2020 Assessment & Plan (1) Hypotension: Reason Critically Ill: 85M presenting with Hypotension, Hypothermia, CKD Stage V requiring dialysis, multidrug resistant klebsiella pneumonia UTI and osteomyelitis of L heel. NEURO: -Relatively unresponsive during exam, does not follow commands -Poor mental status likely secondary to acute metabolic encephalopathy alongside worsening Alzheimer's dementia -CT head without acute intracranial abnormality -Prognosis poor, palliative consulted -Discussed again with over the phone about patients status, she would like to see him this afternoon before making any final decisions. CARDIAC: -Hx Afib, rate controlled -S/P PM placement -Not currently on anticoagulation secondary to hematuria -Fairly significant hypotension, received IVF on the floor with minimal improvement -Currently on Levophed gtt -Prognosis poor, palliative was consulted -Continue atorvastatin -Hold metoprolol RESPIRATORY: -New requirement of 10L by [employer] GI: -DM 2, minced and moist diet -Continue Pepcid RENAL/LYTES: -Plan for dialysis today once blood pressure improves on pressors, Cr 7.75 -Continue to monitor lytes and replete PRN -Dialysis today : -Hematuria -Hold on anticoagulation at this time. ENDO: -SSI and basal bolus -Continue levothyroxine HEME: -Anemia at hgb 8.6, continue to monitor -- improved to 9.9 ID: -Multidrug resistant Klebsiella UTI on urine culture -MRSA infection of L heel ulcer -Continue treatment with Avycaz and Vancomycin LINES/IV ACCESS: R hand periph CODE STATUS: DNR/DNI DVT PROPHYLAXIS: Held at this time due to hematuria Thank you for allowing us to participate in the care of this patient. Please refer to my attending physician's documentation for any further recommendations. (2) Alzheimer's dementia: (3) ESRD (end stage renal disease) on dialysis: (4) Hypothyroidism: (5) Complicated UTI (urinary tract infection): (6) Acute metabolic encephalopathy: (7) Atrial fibrillation: (8) Diabetes mellitus type 2, insulin dependent: Admission and Anticipated Discharge Date Admission Date: March 15, 2020 Supervising Physician Co-Signing Physician Notes Dr. Marcelino was resident physician during care of patient. I separately evaluated patient for harris portions of the history and the exam. I was present during the critical portion of medical decision making, and I discussed the case with the resident. I generally agree with the findings and plan. Patient was discussed in multidisciplinary rounds. I was able to discuss with the patient's son who presented at the bedside. They have decided against proceeding with dialysis today. At this time we are continuing vasoactive medications but anticipate discontinuation when his arrives at approximately 4 PM this evening. In my discussion with yesterday we appeared to be moving towards comfort measures and the goal of care was to sustain the patient to be seen by his son today. His son states he has been in significant decline for the last 6 months to a year and does not anticipate a recovery from this event. Subjective Patient examined this AM at the bedside. Patient unarousable at this time, but visibly breathing. Review of Systems Review of Systems: Unobtainable due to reduced consciousness Physical Exam Constitutional: + ill appearing and + obese ENMT: external ear and nose normal, oropharynx normal Respiratory: normal respiratory effort; no respiratory distress Auscultation: + diminished lung sounds (Bilaterally ) and + crackles (bases ) Cardiovascular: Rate/Rhythm: + abnormal rate (irr-irr) and + abnormal rhythm Heart Sounds: + murmur (2/6 SE) Extremities: + edema Gastrointestinal (Abdomen): Inspection/Auscultation: abdomen normal to inspection and normal bowel sounds; abdomen not distended Percussion/Palpation: abdomen soft Neurologic: + obtunded; + not awake Psychiatric: Orientation: + not alert Results & Data Results & Data ([facility]) Vital Signs (Past 12 Hours) Vital Signs Temp Pulse Resp BP Pulse Ox 03/20/20 03:00 38.2 C H 105 H 23 89 L 03/20/20 02:54 38.2 C H 102 H 22 106/48 L 89 L 03/20/20 02:39 38.2 C H 101 H 22 109/53 L 88 L 03/20/20 02:24 38.2 C H 100 H 24 101/52 L 87 L 03/20/20 02:09 38.2 C H 91 H 21 109/47 L 89 L 03/20/20 02:00 38.2 C H 89 22 93 03/20/20 01:54 38.2 C H 90 25 H 106/55 L 94 03/20/20 01:39 38.2 C H 84 21 107/45 L 94 03/20/20 01:24 38.2 C H 90 22 112/51 L 94 03/20/20 01:09 38.1 C H 87 21 97/58 L 96 03/20/20 01:00 38.1 C H 88 24 109/50 L 95 03/20/20 00:00 37.9 C H 81 20 106/48 L 96 03/19/20 23:00 37.6 C H 79 16 91/60 L 97 03/19/20 21:00 36.1 C L 64 16 101/45 L 99 03/19/20 20:54 36.0 C L 66 14 92/40 L 98 03/19/20 20:39 35.9 C L 68 17 103/45 L 99 03/19/20 20:23 35.7 C L 72 19 110/50 L 100 03/19/20 20:09 35.6 C L 76 14 90/44 L 98 03/19/20 20:00 36.0 C L 69 20 99 03/19/20 19:53 35.4 C L 71 22 93/52 L 98 03/19/20 19:38 35.3 C L 66 17 94/56 L 98 03/19/20 19:23 35.2 C L 62 14 108/52 L 99 03/19/20 19:08 35.1 C L 76 14 101/55 L 97 03/19/20 19:00 35.1 C L 75 17 97 03/19/20 18:23 35.0 C L 62 14 103/47 L 99 03/19/20 18:15 35.0 C L 59 L 14 98 03/19/20 18:08 35.0 C L 60 11 L 94/49 L 98 03/19/20 18:00 34.9 C L 59 L 16 95 Critical Care Time Critical Care Time: Yes Total Critical Care Time: 60 I have personally spent 60 minutes of critical care time in the direct management of this patient. This is a life/limb threatening event. This includes time spent evaluating patient, direct bedside care, chart review, placing orders, interpretation of diagnostic studies, discussion with consultants, patient, and/or family members regarding treatment decisions, as well as other required patient management activities. This time is exclusive of all separately billable procedures, and teaching time and separate from and in addition to any other critical care service time. Resident Activity Tracking Resident Involvement: Resident Care Provided Care Provided: Adult [facility] Medicine (1) Atrial fibrillation Atrial fibrillation type: unspecified Qualified Code(s): I48.91 - Unspecified atrial fibrillation
[2020-03-20] MEDS: LEVOTHYROXINE SODIUM 100 MCG TABLET PO SCH (07:02)
[2020-03-20] MEDS: FAMOTIDINE 10 MG TABLET PO SCH (07:34)
[2020-03-20] MEDS: ESCITALOPRAM OXALATE ORAL SOLN 5 MG/5 ML PO SCH (07:34)
[2020-03-20] MEDS: DOCUSATE SODIUM 100 MG CAP PO SCH (07:34)
[2020-03-20] MEDS: INSULIN ASPART 100 UNITS/ML 3 ML PEN SC SCH ×3 (07:41→11:44)
[2020-03-20] MEDS ORDERED: Nursing to Pharmacy Communication SCH (07:45)
[2020-03-20] MEDS ORDERED: INSULIN GLARGINE SOLOSTAR 100 UNITS/ML 3 ML PEN SC SCH (09:00)
--- NOTE | 2020-03-20 09:01 | Billing Data ---
Date of Service March 19, 2020 Coding Level of Care Code Critical Care mins
--- NOTE | 2020-03-20 09:05 | Billing Data ---
Date of Service March 20, 2020 Coding Level of Care Code Critical Care mins
[2020-03-20] MEDS ORDERED: SODIUM CHLORIDE 0.9% 1000ML 1,000 ML IV PRN (09:19)
--- NOTE | 2020-03-20 09:47 | Hospitalist Progress Note ---
Date of Service March 20, 2020 Assessment & Plan (1) Complicated UTI (urinary tract infection): Patient is an 85 Yr male with H/O ESRD on HD, IDDM, dementia, chronic atrial fibrillation, CAD and other medical problems as below who presents from [facility] with lethargy x 1 week with multidrug-resistant Klebsiella urinary tract infection. Acute metabolic encephalopathy likely multifactorial due to ongoing infection and is complicated by end-stage renal disease and Alzheimer's dementia Foot Wounds/Ulcers Possible Sepsis-POA H/O MRSA Outpatient UTI with 03/11 culture growing multidrug-resistant Klebsiella pneumonia --CT Head: No acute intracranial abnormality. 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 --CXR: No acute cardiopulmonary findings. No change in appearance of the chest. Blood Culture: No growth to date Urine Culture: Gram-negative bacilli-ESBL and is resistant to multiple antibiotics Continue vancomycin, Avycaz Day #4 Consulted ID--pending Appreciate orthopedics input -not a good candidate for surgery Continue wound care and current management with antibiotic Hypotension Blood pressure low today and patient more lethargic Give IV fluids rest for now Clinically deteriorating Low threshold to transfer to ICU for pressors Discussed with --Appreciate Input Updated Patient's over phone in detail Consider broadening IV antibiotics Appreciate palliative care input and recommendation Overall prognosis remains very poor Discussed with the last evening and updated his current deteriorating condition He was transferred to ICU to start a pressor agent to sustain blood pressure before she can come and see him in person Will discuss about possible comfort care with the when she arrives Hypokalemia Hypophosphatemia Normal magnesium level Replete electrolytes as needed (2) Acute metabolic encephalopathy: As above Poorly responsive (3) Diabetic ulcer of left heel associated with diabetes mellitus due to underlying condition: Management as above With input and recommendation Not a very good candidate for surgery given his current situation (4) MRSA infection: Follows with wound care clinic for left heel ulcer H/O recent surgical debridement of Left heel ulcer by Dr. Galdamez on 02/21/20 Wound culture grew MRSA ID consulted-awaiting update from ID Patient general condition has been deteriorating and if he goes for comfort care will cancel ID consult Management as above (5) Diabetes mellitus type 2, insulin dependent: Continue Basal/bolus insulin while in-patient Monitor BSG AC HS Insulin adjusted due to hypoglycemic episodes (6) ESRD (end stage renal disease) on dialysis: on HD Nephrology consulted to assist with dialysis Could not tolerate hemodialysis secondary to low blood pressure today Dialysis has been possible due to low blood pressure Has volume overload and may need dialysis -await nephrology evaluation today (7) Atrial fibrillation: Continue metoprolol Eliquis held due to hematuria (8) Hypothyroidism: Continue levothyroxine Dementia Unknown baseline No agitation DVT Px: Eliquis--held due to hematuria Code status: DNR/DNI PCP: at [facility] Disposition: Case management consulted to help with discharge plan Will discuss with the and are other family members for possible comfort care from here Overall prognosis remains very poor Admission and Anticipated Discharge Date Admission Date: March 15, 2020 Subjective 03/19/2020 The patient was seen and examined in medical telemetry unit He has been severe lethargic since last evening and has not been communicating during examination this morning He could hardly open his eyes on commands but otherwise did not communicate with me Patient went into Septic Shock this afternoon. Discussed with the Scrub Technician and he was transferred to ICU Plan to maintain BP for now and decide for further management plan after discussing with the in person. 03/20/2020 The patient was seen and examined in ICU His condition deteriorated and remains semi-responsive Minimal shortness of breath at rest Opens eyes on command and unresponsive to any other commands Review of Systems Review of Systems: Unobtainable due to reduced consciousness Physical Exam Physical Exam: Lying in bed without any acute distress but remained profoundly ill and lethargic Constitutional: well developed, well nourished, + ill appearing and + obese ENMT: external ear and nose normal, oropharynx normal Neck: trachea midline, no thyromegaly Respiratory: + respiratory distress (Minimal respiratory distress at rest) Auscultation: + diminished lung sounds (Transmitted sounds from trachea and bibasilar crackles) Cardiovascular: Rate/Rhythm: + abnormal rate and + abnormal rhythm Heart Sounds: + murmur (2/6 ESM over precordium) Extremities: + edema Gastrointestinal (Abdomen): Inspection/Auscultation: abdomen normal to inspection and normal bowel sounds; abdomen not distended Neurologic: Opens eyes with command but no other response when asking questions Lymphatic: no cervical or axillary lymphadenopathy Results & Data Results & Data ([facility]) Vital Signs (Past 12 Hours) Vital Signs Temp Pulse Resp BP Pulse Ox 03/20/20 09:09 36.9 C 103 H 21 102/71 95 03/20/20 09:00 37.0 C 109 H 27 H 96 03/20/20 08:54 37.0 C 128 H 25 H 108/75 95 03/20/20 08:39 37.1 C 110 H 25 H 109/62 94 03/20/20 08:30 37.2 C 117 H 25 H 94 03/20/20 08:24 37.2 C 113 H 26 H 121/54 L 94 03/20/20 08:09 37.3 C 108 H 25 H 115/57 L 93 03/20/20 08:00 37.3 C 115 H 31 H 90 03/20/20 07:54 37.3 C 91 H 28 H 109/56 L 92 03/20/20 07:39 37.4 C 113 H 24 101/47 L 91 03/20/20 07:30 37.4 C 105 H 25 H 87 L 03/20/20 07:24 37.4 C 110 H 23 105/54 L 88 L 03/20/20 07:09 37.5 C 126 H 23 89/55 L 88 L 03/20/20 07:00 37.5 C 111 H 29 H 88 L 03/20/20 06:54 37.5 C 117 H 21 99/49 L 88 L 03/20/20 06:45 37.5 C 108 H 22 88 L 03/20/20 06:00 37.7 C H 109 H 24 89 L 03/20/20 05:54 37.7 C H 109 H 25 H 100/49 L 88 L 03/20/20 05:39 37.8 C H 104 H 21 93/43 L 89 L 03/20/20 05:24 38.0 C H 108 H 22 93/37 L 90 03/20/20 05:09 38.0 C H 136/60 89 L 03/20/20 05:00 38.0 C H 100 H 23 89 L 03/20/20 04:39 38.1 C H 99 H 24 105/49 L 90 03/20/20 04:24 38.1 C H 108 H 24 106/48 L 90 03/20/20 04:09 38.1 C H 101 H 22 106/46 L 89 L 03/20/20 04:00 38.1 C H 99 H 22 89 L 03/20/20 03:00 38.2 C H 105 H 23 89 L 03/20/20 02:54 38.2 C H 102 H 22 106/48 L 89 L 03/20/20 02:39 38.2 C H 101 H 22 109/53 L 88 L 03/20/20 02:24 38.2 C H 100 H 24 101/52 L 87 L 03/20/20 02:09 38.2 C H 91 H 21 109/47 L 89 L 03/20/20 02:00 38.2 C H 89 22 93 03/20/20 01:54 38.2 C H 90 25 H 106/55 L 94 03/20/20 01:39 38.2 C H 84 21 107/45 L 94 03/20/20 01:24 38.2 C H 90 22 112/51 L 94 03/20/20 01:09 38.1 C H 87 21 97/58 L 96 03/20/20 01:00 38.1 C H 88 24 109/50 L 95 03/20/20 00:00 37.9 C H 81 20 106/48 L 96 03/19/20 23:00 37.6 C H 79 16 91/60 L 97 Laboratory Results Short CBC 03/20/20 Range/Units 04:46 WBC 12.01 H (4.8-10.8) K/uL Hgb 9.9 L (14.0-18.0) g/dL Hct 32.4 L (42-52) % Plt Count 308 (130-400) K/uL BMP 03/20/20 04:46 Sodium 138 Potassium 4.0 Chloride 102 Carbon Dioxide 24 BUN 68 H Creatinine 8.40 H* D Glucose 93 Calcium 8.4 L Medications Administered Current Inpatient Medications Acetaminophen (Acetaminophen 325 Mg Tab) 650 mg PO Q4H PRN PRN Reason: Pain or Fever Stop: 04/14/20 19:48 Apixaban (Apixaban 2.5 Mg Tab) 2.5 mg PO BID DANA Stop: 04/15/20 09:29 Last Admin: 03/17/20 21:15 Dose: 2.5 mg Documented by: Atorvastatin Calcium (Atorvastatin 40 Mg Tab) 80 mg PO HS DANA Stop: 04/15/20 20:59 Last Admin: 03/19/20 20:33 Dose: Not Given Documented by: Dextrose (Dextrose 50% 50 Ml Syringe) 25 - 50 ml IV UD PRN; Protocol PRN Reason: Hypoglycemia Protocol Stop: 04/14/20 19:48 Last Admin: 03/19/20 17:02 Dose: 25 ml Documented by: Docusate Sodium (Docusate Sodium 100 Mg Cap) 100 mg PO BID [facility] Stop: 04/15/20 20:59 Last Admin: 03/20/20 07:34 Dose: Not Given Documented by: Escitalopram Oxalate (Escitalopram Oxalate Oral Soln 5 Mg/5 Ml) 7.5 mg PO QAM DANA Stop: 04/15/20 09:29 Last Admin: 03/20/20 07:34 Dose: Not Given Documented by: Famotidine (Famotidine 10 Mg Tablet) 10 mg PO SuMoWeFr@0800 [facility] Stop: 04/16/20 07:59 Last Admin: 03/20/20 07:34 Dose: Not Given Documented by: Glucagon (Glucagon For Inj 1 Mg Vial) 1 mg SQ UD PRN; Protocol PRN Reason: Hypoglycemia Protocol Stop: 04/14/20 19:48 Glucose (Glucose 10 Tabs/Tube) 4 - 8 tabs PO UD PRN; Protocol PRN Reason: Hypoglycemia Protocol Stop: 04/14/20 19:48 Glucose (Glucose 40% Gel 15 Gm Tube) 15 - 30 gm PO UD PRN; Protocol PRN Reason: Hypoglycemia Protocol Stop: 04/14/20 19:48 Ceftazidime/Avibactam 0.94 gm/ (Sodium Chloride) 54.512 mls @ 28 mls/hr IV Q24H DANA; Protocol Stop: 03/26/20 17:59 Last Infusion: 03/19/20 19:57 Dose: Infused Documented by: Norepinephrine Bitartrate 8 mg (/ Dextrose) 508 mls @ 20.003 mls/hr IV .Q24H DANA; Protocol Stop: 04/18/20 16:44 Last Titration: 03/20/20 06:55 Dose: 0.05 mcg/kg/min, 20 mls/hr Documented by: Sodium Chloride (Nss 1000ml) 1,000 mls @ 0 mls/hr IV .Q0M PRN PRN Reason: For Hemodialysis Use ONLY Stop: 03/20/20 15:18 Insulin Aspart (Insulin Aspart 100 Units/Ml 3 Ml Pen) 0 units SC Q6 DANA Stop: 04/19/20 07:29 Last Admin: 03/20/20 07:49 Dose: Not Given Documented by: Insulin Glargine (Insulin Glargine Solostar 100 Units/Ml 3 Ml Pen) 5 units SC DAILY [facility] Stop: 04/19/20 08:59 Last Admin: 03/20/20 07:50 Dose: 5 units Documented by: Levothyroxine Sodium (Levothyroxine Sodium 100 Mcg Tablet) 100 mcg PO DAILY@0700 [facility] Stop: 04/16/20 06:59 Last Admin: 03/20/20 07:02 Dose: Not Given Documented by: Metoprolol Succinate (Metoprolol Succ 25mg Ext Rel Tab) 12.5 mg PO BID [facility] Stop: 04/15/20 20:59 Last Admin: 03/19/20 09:25 Dose: Not Given Documented by: Miscellaneous (Carbohydrates For Hypoglycemia ) 15 - 30 gm PO UD PRN PRN Reason: Hypoglycemia Protocol Stop: 04/14/20 19:48 Last Admin: 03/18/20 11:34 Dose: 15 gm Documented by: Miscellaneous Information (Consult Pharmacy) 1 ea N/A UD PRN PRN Reason: Consult Stop: 04/14/20 20:14 Miscellaneous Information (Vancomycin Consult Active) 1 ea N/A UD PRN PRN Reason: Consult Stop: 04/15/20 08:14 Oxymetazoline HCl (Oxymetazoline 0.05% 30 Ml Btl) 2 sprays NA Q8 PRN PRN Reason: Nasal Congestion Stop: 04/15/20 14:57 Polyethylene Glycol (Polyethylene (Miralax) 17 Gm Pack) 17 gm PO DAILY PRN PRN Reason: Constipation Stop: 04/14/20 19:48 (1) Diabetic ulcer of left heel associated with diabetes mellitus due to underlying condition Non-pressure ulcer stage: unspecified non-pressure ulcer stage Qualified Code(s): E08.621 - Diabetes mellitus due to underlying condition with foot ulcer; L97.429 - Non-pressure chronic ulcer of left heel and midfoot with unspecified severity (2) Atrial fibrillation Atrial fibrillation type: unspecified Qualified Code(s): I48.91 - Unspecified atrial fibrillation
--- NOTE | 2020-03-20 11:20 | Nephrology Progress Note ---
Date of Service March 20, 2020 Assessment & Plan (1) ESRD (end stage renal disease) on dialysis: * ESRD due to diabetic nephropathy. Dialyzes at [facility] TTS 4hr, 2K 2Ca HCO3 32 Na 140 temp 37, F-180NR, EDW 99 * L arm doppler reveals patent dialysis access. Discussed arm swelling w/ Dr. Acosta: Patient has HeRO graft in place. He required ATM MECHANIC 03/06/20. Edema is expected to improve with time * Will provide 2 hours heparin free HD today w/ 0 UF. HD being performed for urea clearance. CANCER REGISTRAR will titrate levophed gtt if needed to maintatin SBP ~ 100 mmHg (2) Anemia in chronic kidney disease (CKD): * Hgb 8.8 * Will provide DERRICK w/ HD (3) Complicated UTI (urinary tract infection): * Urine cx + MDR Klebsiella * On Avycaz IV * Await ID consult (4) Venous stasis ulcers of both lower extremities: * Ortho managing. They are considering further debridement * MRSA - given 2g IV Vanco while in ED 03/15/20 (5) Atrial fibrillation: * On Metoprolol & Apixaban (6) Debilitated patient: * Clinical condition appears to be worsening due to UTI, possible sepsis from foot ulcers. staffing operations manager reports that family plans visit today Admission and Anticipated Discharge Date Admission Date: March 15, 2020 Subjective Mr. Holder was transferred to the ICU yesterday due to hypotension. He is currently on low dose Levophed gtt w/ SBP ~ 100 mmHg. Mr. Holder remains lethargic but will open his eyes to tactile stimulus and speak his name Review of Systems Review of Systems: Unobtainable due to reduced consciousness Physical Exam Constitutional: + frail appearing Eyes: PERRL, conjunctivae normal, anicteric sclerae ENMT: external ear and nose normal, oropharynx normal Neck: trachea midline, no thyromegaly Respiratory: normal respiratory effort, lungs clear to auscultation Cardiovascular: Rate/Rhythm: + irregularly irregular Gastrointestinal (Abdomen): normal bowel sounds, soft, nontender, no hepatosplenomegaly Musculoskeletal: Extremities: no cyanosis Neurologic: lethargic Results & Data ([facility]) Vital Signs (Past 12 Hours) Vital Signs Temp Pulse Resp BP Pulse Ox 03/20/20 09:09 36.9 C 103 H 21 102/71 95 03/20/20 09:00 37.0 C 109 H 27 H 96 03/20/20 08:54 37.0 C 128 H 25 H 108/75 95 03/20/20 08:39 37.1 C 110 H 25 H 109/62 94 03/20/20 08:30 37.2 C 117 H 25 H 94 03/20/20 08:24 37.2 C 113 H 26 H 121/54 L 94 03/20/20 08:09 37.3 C 108 H 25 H 115/57 L 93 03/20/20 08:00 37.3 C 115 H 31 H 90 03/20/20 07:54 37.3 C 91 H 28 H 109/56 L 92 03/20/20 07:39 37.4 C 113 H 24 101/47 L 91 03/20/20 07:30 37.4 C 105 H 25 H 87 L 03/20/20 07:24 37.4 C 110 H 23 105/54 L 88 L 03/20/20 07:09 37.5 C 126 H 23 89/55 L 88 L 03/20/20 07:00 37.5 C 111 H 29 H 88 L 03/20/20 06:54 37.5 C 117 H 21 99/49 L 88 L 03/20/20 06:45 37.5 C 108 H 22 88 L 03/20/20 06:00 37.7 C H 109 H 24 89 L 03/20/20 05:54 37.7 C H 109 H 25 H 100/49 L 88 L 03/20/20 05:39 37.8 C H 104 H 21 93/43 L 89 L 03/20/20 05:24 38.0 C H 108 H 22 93/37 L 90 03/20/20 05:09 38.0 C H 136/60 89 L 03/20/20 05:00 38.0 C H 100 H 23 89 L 03/20/20 04:39 38.1 C H 99 H 24 105/49 L 90 03/20/20 04:24 38.1 C H 108 H 24 106/48 L 90 03/20/20 04:09 38.1 C H 101 H 22 106/46 L 89 L 03/20/20 04:00 38.1 C H 99 H 22 89 L 03/20/20 03:00 38.2 C H 105 H 23 89 L 03/20/20 02:54 38.2 C H 102 H 22 106/48 L 89 L 03/20/20 02:39 38.2 C H 101 H 22 109/53 L 88 L 03/20/20 02:24 38.2 C H 100 H 24 101/52 L 87 L 03/20/20 02:09 38.2 C H 91 H 21 109/47 L 89 L 03/20/20 02:00 38.2 C H 89 22 93 03/20/20 01:54 38.2 C H 90 25 H 106/55 L 94 03/20/20 01:39 38.2 C H 84 21 107/45 L 94 03/20/20 01:24 38.2 C H 90 22 112/51 L 94 03/20/20 01:09 38.1 C H 87 21 97/58 L 96 03/20/20 01:00 38.1 C H 88 24 109/50 L 95 03/20/20 00:00 37.9 C H 81 20 106/48 L 96 Laboratory Tests 03/20/20 03/20/20 04:46 04:46 WBC 12.01 H Hgb 9.9 L Hct 32.4 L Plt Count 308 Sodium 138 Potassium 4.0 Chloride 102 Carbon Dioxide 24 BUN 68 H Creatinine 8.40 H* D Calcium 8.4 L Phosphorus 3.4 Magnesium 2.2 PG Care Time/CCT Total # of Minutes Spent Total Time Spent with Patient: Total time spent is greater than 50% in coordination of care (as documented) at patient's floor/unit and/or counseling patient: Coding Level of Care Code 40825 Subseq Hosp Care Lvl 3 Diagnoses ESRD (end stage renal disease) on dialysis N18.6; Z99.2 Anemia in chronic kidney disease (CKD) N18.9; D63.1 Complicated UTI (urinary tract infection) N39.0 Venous stasis ulcers of both lower extremities I83.019; I83.029; L97.919; L97.929 Atrial fibrillation I48.91 Atrial fibrillation type: unspecified Debilitated patient R53.81 (1) Atrial fibrillation Atrial fibrillation type: unspecified Qualified Code(s): I48.91 - Unspecified atrial fibrillation
--- NOTE | 2020-03-20 11:22 | Pharmacy Report ---
Pharmacy Abx Dose Short Note - Date of Service March 20, 2020 - Assessment & Plan Assessment 85 year old M receiving Vancomycin and avycaz for treatment of osteomyelitis and KPC/ESBL Klebsiella UTI. Vancomycin dose was administered yesterday despite no HD. Will not redose at all today even with planned HD given random level this morning was 28. Will reassess random level with AM labs Plan Vancomycin * Random level is 28.6 mcg/mL * No supplemental dose ordered for today * Random level ordered for: 03/21/20 with AM labs Continue Avycaz 0.94 g IV q24h - remains appropriate for renal function and culture results Pharmacy will continue to follow and will adjust dose/frequency as necessary. Thank you.
[2020-03-20] MEDS ORDERED: MoRPHine SULFATE 2 MG/ML CARP IV PRN (12:29)
[2020-03-20] MEDS: NOREPINEPHRINE BIT INJ 8 MG in DEXTROSE 5% 500 ML IV SCH ×2 (14:18→17:25)
[2020-03-20] MEDS ORDERED: LORazepam 0.5 MG/1 ML VIAL IV PRN (17:11)
[2020-03-20] MEDS ORDERED: ACETAMINOPHEN 650 MG SUPP PR PRN (17:11)
[2020-03-20] MEDS ORDERED: ONDANSETRON INJ 2 MG/ML 2 ML VIAL IV PRN (17:11)
--- NOTE | 2020-03-21 08:23 | Nephrology Progress Note ---
Date of Service March 21, 2020 Assessment & Plan (1) ESRD (end stage renal disease) on dialysis: Chart review completed this morning. RN notes indicate that Mr. Holder was visited by his family yesterday. They understand his poor prognosis and have chosen to stop dialysis, stop lab testing, stop pressors and transition to comfort measures. No further Nephrology evaluation indicated at this time. Will sign off. Please call if further assistance is needed. Admission and Anticipated Discharge Date Admission Date: March 15, 2020 Results & Data ([facility]) Vital Signs (Past 12 Hours) Vital Signs Temp Pulse Resp BP Pulse Ox 03/21/20 08:17 36.5 C 78 18 125/62 95 PG Care Time/CCT Total # of Minutes Spent Total Time Spent with Patient: Total time spent is greater than 50% in coordination of care (as documented) at patient's floor/unit and/or counseling patient: Coding Level of Care Code 30933 Subseq Hosp Care Lvl 1 Diagnoses ESRD (end stage renal disease) on dialysis N18.6; Z99.2
[2020-03-21] MEDS: MoRPHine SULFATE 2 MG/ML CARP IV PRN ×2 (11:28→15:32)
--- NOTE | 2020-03-21 11:30 | Palliative Care Progress Note ---
Date of Service March 21, 2020 Assessment & Plan (1) Goals of care, counseling/discussion: -Patient seen and examined. -Patient opened his eyes slightly on exam, unable to follow commands. -Patient with furrowed brow. -Discussed with nursing, would administer Morphine. -Appears patient is declining. -Call to patients and left message, would be supportive of transition to full comfort measures. -Patient likely has days to a week or two of life expectancy -PPS: 20% (2) ESRD (end stage renal disease) on dialysis: Creatinine continues to rise, was 7.75 today (3) Alzheimer's dementia: Unable to determine FAST score due to being minimally responsive (4) Complicated UTI (urinary tract infection): Multidrug-resistant Klebsiella-on IV Avycaz (5) Decubitus ulcer of heel, bilateral: Status post debridement on 02/22, biopsies positive for osteomyelitis, history of MRSA-on IV vancomycin (6) Anemia in chronic kidney disease (CKD): Hemoglobin 8.6 (7) Diabetes mellitus type 2, insulin dependent: Continue insulin for blood sugar control (8) CHF (congestive heart failure), NYHA class III: On Eliquis and metoprolol Admission and Anticipated Discharge Date Admission Date: March 15, 2020 Subjective pt arousable to voice, but really lethargic pt has furrowed brow on assessment please see a/p for further details Review of Systems Review of Systems: Unobtainable due to reduced consciousness Physical Exam Constitutional: + ill appearing and + lethargic Respiratory: Auscultation: + diminished lung sounds Cardiovascular: Rate/Rhythm: + tachycardic Gastrointestinal (Abdomen): normal bowel sounds, soft, nontender, no hepatosplenomegaly Skin: + mottling and + pallor Psychiatric: A+Ox3, euthymic affect Results & Data ([facility]) Vital Signs (Past 12 Hours) Vital Signs Temp Pulse Resp BP Pulse Ox 03/21/20 08:17 36.5 C 78 18 125/62 95 PG Care Time/CCT Total # of Minutes Spent Total Time Spent with Patient: Total time spent is greater than 50% in coordination of care (as documented) at patient's floor/unit and/or counseling patient: 35 Coding Level of Care Code 17825 Subseq Hosp Care Lvl 3 Diagnoses Goals of care, counseling/discussion Z71.89 ESRD (end stage renal disease) on dialysis N18.6; Z99.2 Alzheimer's dementia G30.9; F02.80 Complicated UTI (urinary tract infection) N39.0 Decubitus ulcer of heel, bilateral L89.619; L89.629 Anemia in chronic kidney disease (CKD) N18.9; D63.1 Diabetes mellitus type 2, insulin dependent E11.9; Z79.4 CHF (congestive heart failure), NYHA class III I50.9 Time Spent (min) 35 Time Spent Midlevel Total time spent 35 minutes with > 50% of that time spent assessing the patient & discussing symptom management with IDT
--- NOTE | 2020-03-21 16:29 | Hospitalist Progress Note ---
Date of Service March 21, 2020 Assessment & Plan (1) Complicated UTI (urinary tract infection): Comfort care only Patient has been on comfort care only since last evening After long discussion with the and palliative care provider the decision of comfort care was taken Patient remains critical but comfortable We will continue current supportive measures Below is the progress note for current hospitalization. Patient is an 85 Yr male with H/O ESRD on HD, IDDM, dementia, chronic atrial fibrillation, CAD and other medical problems as below who presents from [facility] with lethargy x 1 week with multidrug-resistant Klebsiella urinary tract infection. Acute metabolic encephalopathy likely multifactorial due to ongoing infection and is complicated by end-stage renal disease and Alzheimer's dementia Foot Wounds/Ulcers Possible Sepsis-POA H/O MRSA Outpatient UTI with 03/11 culture growing multidrug-resistant Klebsiella pneumonia --CT Head: No acute intracranial abnormality. 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 --CXR: No acute cardiopulmonary findings. No change in appearance of the chest. Blood Culture: No growth to date Urine Culture: Gram-negative bacilli-ESBL and is resistant to multiple antibiotics Continue vancomycin, Avycaz Day #4 Consulted ID--pending Appreciate orthopedics input -not a good candidate for surgery Continue wound care and current management with antibiotic Hypotension Blood pressure low today and patient more lethargic Give IV fluids rest for now Clinically deteriorating Low threshold to transfer to ICU for pressors Discussed with --Appreciate Input Updated Patient's over phone in detail Consider broadening IV antibiotics Appreciate palliative care input and recommendation Overall prognosis remains very poor Discussed with the last evening and updated his current deteriorating condition He was transferred to ICU to start a pressor agent to sustain blood pressure before she can come and see him in person Will discuss about possible comfort care with the when she arrives Hypokalemia Hypophosphatemia Normal magnesium level Replete electrolytes as needed (2) Acute metabolic encephalopathy: As above Poorly responsive (3) Diabetic ulcer of left heel associated with diabetes mellitus due to underlying condition: Management as above With input and recommendation Not a very good candidate for surgery given his current situation (4) MRSA infection: Follows with wound care clinic for left heel ulcer H/O recent surgical debridement of Left heel ulcer by Dr. Galdamez on 02/21/20 Wound culture grew MRSA ID consulted-awaiting update from ID Patient general condition has been deteriorating and if he goes for comfort care will cancel ID consult Management as above (5) Diabetes mellitus type 2, insulin dependent: Continue Basal/bolus insulin while in-patient Monitor BSG AC HS Insulin adjusted due to hypoglycemic episodes (6) ESRD (end stage renal disease) on dialysis: on HD Nephrology consulted to assist with dialysis Could not tolerate hemodialysis secondary to low blood pressure today Dialysis has been possible due to low blood pressure Has volume overload and may need dialysis -await nephrology evaluation today (7) Atrial fibrillation: Continue metoprolol Eliquis held due to hematuria (8) Hypothyroidism: Continue levothyroxine Dementia Unknown baseline No agitation DVT Px: Eliquis--held due to hematuria Code status: DNR/DNI PCP: at [facility] Disposition: Case management consulted to help with discharge plan Will discuss with the and are other family members for possible comfort care from here Overall prognosis remains very poor Admission and Anticipated Discharge Date Admission Date: March 15, 2020 Subjective 03/19/2020 The patient was seen and examined in medical telemetry unit He has been severe lethargic since last evening and has not been communicating during examination this morning He could hardly open his eyes on commands but otherwise did not communicate with me Patient went into Septic Shock this afternoon. Discussed with the Group Work Program Aide and he was transferred to ICU Plan to maintain BP for now and decide for further management plan after discussing with the in person. 03/20/2020 The patient was seen and examined in ICU His condition deteriorated and remains semi-responsive Minimal shortness of breath at rest Opens eyes on command and unresponsive to any other commands 03/21/2020 He has been put on comfort care only Has had a long discussion with the family members especially the prior to this He remains critical but comfortable Physical Exam Physical Exam: Remains comfortable. Semiconscious. Opens his eyes only with command. No acute distress. Results & Data Results & Data ([facility]) Vital Signs (Past 12 Hours) Vital Signs Temp Pulse Resp BP Pulse Ox 03/21/20 08:17 36.5 C 78 18 125/62 95 (1) Diabetic ulcer of left heel associated with diabetes mellitus due to unde rlying condition Non-pressure ulcer stage: unspecified non-pressure ulcer stage Qualified Code(s): E08.621 - Diabetes mellitus due to underlying condition with foot ulcer; L97.429 - Non-pressure chronic ulcer of left heel and midfoot with unspecified severity (2) Atrial fibrillation Atrial fibrillation type: unspecified Qualified Code(s): I48.91 - Unspecified atrial fibrillation
--- NOTE | 2020-03-22 13:57 | Palliative Care Progress Note ---
Date of Service March 22, 2020 Assessment & Plan (1) Goals of care, counseling/discussion: Patient is an 85-year-old male with a past medical history significant for CKD stage V-on HD, CHF, A. fib, CAD-status post CABG, ICM O-status post pacemaker/AICD 2013, hypertension, diabetes-A1c 6.1 in September, GERD, dementia, depression, hypothyroidism, chronic venous insufficiency with bilateral heel ulcers, obesity/MILE who was sent to [facility] from [facility] on 03/15 for continued lethargy of 1 week duration and new onset hematuria. Admission evaluation included a CT scan that was negative for any acute findings, urine positive for multidrug-resistant Klebsiella patient with chronic bilateral heel wounds- underwent debridement on 02/22, biopsy positive for osteomyelitis. Patient currently on IV vancomycin as well as Avycaz. Patient's dialysis was held on 03/16 due to increased weakness and volume contraction-he did undergo HD on 03/18 and is planned for HD today. Patient has remained lethargic and minimally responsive yesterday and today. Patient's creatinine on admission was 5.1-was 7.75 today, hemoglobin on admission was 9.4, 8.6 today. Patient underwent angioplasty for a nonfunctioning left upper extremity AV fistula on 03/06. -Patient seen and examined in room 359 , no family at bedside-patient opened eyes briefly in response to voice. Appeared comfortable at rest. Patient on comfort measures only -No urine output -Patient no longer able to take sips orally. -Patient has been at [facility] since 05/30/2019. stated she is unable to care for him herself at home. -Patient's prognosis is a few days -PPS 10% (2) ESRD (end stage renal disease) on dialysis: Creatinine continues to rise, was 8.4 on 03/20 -no further blood draws, patient on comfort measures only (3) Alzheimer's dementia: Unable to determine FAST score due to being minimally responsive (4) Complicated UTI (urinary tract infection): Multidrug-resistant Klebsiella-IV antibiotics stopped-comfort measures only (5) Decubitus ulcer of heel, bilateral: Status post debridement on 02/22, biopsies positive for osteomyelitis, history of MRSA- IV vancomycin (6) Anemia in chronic kidney disease (CKD): Hemoglobin 8.6 (7) Diabetes mellitus type 2, insulin dependent: No further blood sugar checks, comfort measures only (8) CHF (congestive heart failure), NYHA class III: Eliquis and metoprolol discontinued, heart rate within acceptable limits Admission and Anticipated Discharge Date Admission Date: March 15, 2020 Subjective Patient seen and examined in room 359-no family at bedside, collaborated with nursing. Attempted to reach at home-no answer, unable to leave a voice message. Patient will open his eyes briefly, does not attempt to speak or nod yes or no to simple questions. Nursing reports patient is not taking even sips by mouth anymore. Patient did require 2 doses of morphine overnight, no Ativan or Zofran required. Patient is on comfort measures only, appears to continue to decline-prognosis is a few days -PPS 10% Review of Systems Review of Systems: Unobtainable due to cognitive status Physical Exam Physical Exam: PE: Patient will open his eyes briefly in response to voice, does not attempt to speak or answer simple questions by nodding yes or no HEENT: Dry mucous membranes Respirations: Unlabored, coarse breath sounds with upper airway secretions CV: Regular rate, edema decreasing Abdomen: Soft, no grimace on palpation Neuro: Minimally responsive PG Care Time/CCT Total # of Minutes Spent Total Time Spent with Patient: Total time spent is 35 min with greater than 50% of the time spent at bedside assessing patient's level of comfort and collaborating with floor nurse. Coding Level of Care Code 46762 Subseq Hosp Care Lvl 3 Diagnoses Goals of care, counseling/discussion Z71.89 ESRD (end stage renal disease) on dialysis N18.6; Z99.2 Alzheimer's dementia G30.9; F02.80 Complicated UTI (urinary tract infection) N39.0 Decubitus ulcer of heel, bilateral L89.619; L89.629 Anemia in chronic kidney disease (CKD) N18.9; D63.1 Diabetes mellitus type 2, insulin dependent E11.9; Z79.4 CHF (congestive heart failure), NYHA class III I50.9 Time Spent (min) 35
[2020-03-22] MEDS: ATROPINE SULFATE 1% OP SOLN 2 ML BTL SL PRN (15:34)
--- NOTE | 2020-03-22 15:45 | Hospitalist Progress Note ---
Date of Service March 22, 2020 Assessment & Plan (1) Complicated UTI (urinary tract infection): Comfort care only Patient has been on comfort care only since last evening After long discussion with the and palliative care provider the decision of comfort care was taken Patient remains critical but comfortable We will continue current supportive measures Remains comfortable-we will continue comfort care Has had a long discussion with the and the daughter yesterday 03/21/2020 Below is the progress note for current hospitalization. Patient is an 85 Yr male with H/O ESRD on HD, IDDM, dementia, chronic atrial fibrillation, CAD and other medical problems as below who presents from [facility] with lethargy x 1 week with multidrug-resistant Klebsiella urinary tract infection. Acute metabolic encephalopathy likely multifactorial due to ongoing infection and is complicated by end-stage renal disease and Alzheimer's dementia Foot Wounds/Ulcers Possible Sepsis-POA H/O MRSA Outpatient UTI with 03/11 culture growing multidrug-resistant Klebsiella pneumonia --CT Head: No acute intracranial abnormality. 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 --CXR: No acute cardiopulmonary findings. No change in appearance of the chest. Blood Culture: No growth to date Urine Culture: Gram-negative bacilli-ESBL and is resistant to multiple antibiotics Continue vancomycin, Avycaz Day #4 Consulted ID--pending Appreciate orthopedics input -not a good candidate for surgery Continue wound care and current management with antibiotic Hypotension Blood pressure low today and patient more lethargic Give IV fluids rest for now Clinically deteriorating Low threshold to transfer to ICU for pressors Discussed with --Appreciate Input Updated Patient's over phone in detail Consider broadening IV antibiotics Appreciate palliative care input and recommendation Overall prognosis remains very poor Discussed with the last evening and updated his current deteriorating condition He was transferred to ICU to start a pressor agent to sustain blood pressure before she can come and see him in person Will discuss about possible comfort care with the when she arrives Hypokalemia Hypophosphatemia Normal magnesium level Replete electrolytes as needed (2) Acute metabolic encephalopathy: As above Poorly responsive (3) Diabetic ulcer of left heel associated with diabetes mellitus due to underlying condition: Management as above With input and recommendation Not a very good candidate for surgery given his current situation (4) MRSA infection: Follows with wound care clinic for left heel ulcer H/O recent surgical debridement of Left heel ulcer by Dr. Galdamez on 02/21/20 Wound culture grew MRSA ID consulted-awaiting update from ID Patient general condition has been deteriorating and if he goes for comfort care will cancel ID consult Management as above (5) Diabetes mellitus type 2, insulin dependent: Continue Basal/bolus insulin while in-patient Monitor BSG AC HS Insulin adjusted due to hypoglycemic episodes (6) ESRD (end stage renal disease) on dialysis: on HD Nephrology consulted to assist with dialysis Could not tolerate hemodialysis secondary to low blood pressure today Dialysis has been possible due to low blood pressure Has volume overload and may need dialysis -await nephrology evaluation today (7) Atrial fibrillation: Continue metoprolol Eliquis held due to hematuria (8) Hypothyroidism: Continue levothyroxine Dementia Unknown baseline No agitation DVT Px: Eliquis--held due to hematuria Code status: DNR/DNI PCP: at [facility] Disposition: Case management consulted to help with discharge plan Will discuss with the and are other family members for possible comfort care from here Overall prognosis remains very poor Admission and Anticipated Discharge Date Admission Date: March 15, 2020 Subjective 03/19/2020 The patient was seen and examined in medical telemetry unit He has been severe lethargic since last evening and has not been communicating during examination this morning He could hardly open his eyes on commands but otherwise did not communicate with me Patient went into Septic Shock this afternoon. Discussed with the Pastrycook and he was transferred to ICU Plan to maintain BP for now and decide for further management plan after discussing with the in person. 03/20/2020 The patient was seen and examined in ICU His condition deteriorated and remains semi-responsive Minimal shortness of breath at rest Opens eyes on command and unresponsive to any other commands 03/21/2020 He has been put on comfort care only Has had a long discussion with the family members especially the prior to this He remains critical but comfortable 03/22/2020 The patient was seen and examined in medical floor He remains comfortable Opens his eyes with commands and looks a little brighter than yesterday Physical Exam Physical Exam: Lying in bed comfortably Constitutional: well developed, well nourished, + ill appearing and + obese Remains on comfort care and does not have any acute distress on examination (1) Diabetic ulcer of left heel associated with diabetes mellitus due to underlying condition Non-pressure ulcer stage: unspecified non-pressure ulcer stage Qualified Code(s): E08.621 - Diabetes mellitus due to underlying condition with foot ulcer; L97.429 - Non-pressure chronic ulcer of left heel and midfoot with unspecified severity (2) Atrial fibrillation Atrial fibrillation type: unspecified Qualified Code(s): I48.91 - Unspecified atrial fibrillation
--- NOTE | 2020-03-23 15:50 | Hospitalist Progress Note ---
Date of Service March 23, 2020 Assessment & Plan (1) Complicated UTI (urinary tract infection): Comfort care only Patient has been on comfort care only since last evening After long discussion with the and palliative care provider the decision of comfort care was taken Patient remains critical but comfortable We will continue current supportive measures Remains comfortable-we will continue comfort care Has had a long discussion with the and the daughter yesterday 03/21/2020 Critical but stable-continue comfort care only Below is the progress note for current hospitalization. Patient is an 85 Yr male with H/O ESRD on HD, IDDM, dementia, chronic atrial fibrillation, CAD and other medical problems as below who presents from [facility] with lethargy x 1 week with multidrug-resistant Klebsiella urinary tract infection. Acute metabolic encephalopathy likely multifactorial due to ongoing infection and is complicated by end-stage renal disease and Alzheimer's dementia Foot Wounds/Ulcers Possible Sepsis-POA H/O MRSA Outpatient UTI with 03/11 culture growing multidrug-resistant Klebsiella pneumonia --CT Head: No acute intracranial abnormality. 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 --CXR: No acute cardiopulmonary findings. No change in appearance of the chest. Blood Culture: No growth to date Urine Culture: Gram-negative bacilli-ESBL and is resistant to multiple antibiotics Continue vancomycin, Avycaz Day #4 Consulted ID--pending Appreciate orthopedics input -not a good candidate for surgery Continue wound care and current management with antibiotic Hypotension Blood pressure low today and patient more lethargic Give IV fluids rest for now Clinically deteriorating Low threshold to transfer to ICU for pressors Discussed with --Appreciate Input Updated Patient's over phone in detail Consider broadening IV antibiotics Appreciate palliative care input and recommendation Overall prognosis remains very poor Discussed with the last evening and updated his current deteriorating condition He was transferred to ICU to start a pressor agent to sustain blood pressure before she can come and see him in person Will discuss about possible comfort care with the when she arrives Hypokalemia Hypophosphatemia Normal magnesium level Replete electrolytes as needed (2) Acute metabolic encephalopathy: As above Poorly responsive (3) Diabetic ulcer of left heel associated with diabetes mellitus due to underlying condition: Management as above With input and recommendation Not a very good candidate for surgery given his current situation (4) MRSA infection: Follows with wound care clinic for left heel ulcer H/O recent surgical debridement of Left heel ulcer by Dr. Galdamez on 02/21/20 Wound culture grew MRSA ID consulted-awaiting update from ID Patient general condition has been deteriorating and if he goes for comfort care will cancel ID consult Management as above (5) Diabetes mellitus type 2, insulin dependent: Continue Basal/bolus insulin while in-patient Monitor BSG AC HS Insulin adjusted due to hypoglycemic episodes (6) ESRD (end stage renal disease) on dialysis: on HD Nephrology consulted to assist with dialysis Could not tolerate hemodialysis secondary to low blood pressure today Dialysis has been possible due to low blood pressure Has volume overload and may need dialysis -await nephrology evaluation today (7) Atrial fibrillation: Continue metoprolol Eliquis held due to hematuria (8) Hypothyroidism: Continue levothyroxine Dementia Unknown baseline No agitation DVT Px: Eliquis--held due to hematuria Code status: DNR/DNI PCP: at [facility] Disposition: Case management consulted to help with discharge plan Will discuss with the and are other family members for possible comfort care from here Overall prognosis remains very poor Admission and Anticipated Discharge Date Admission Date: March 15, 2020 Subjective 03/19/2020 The patient was seen and examined in medical telemetry unit He has been severe lethargic since last evening and has not been communicating during examination this morning He could hardly open his eyes on commands but otherwise did not communicate with me Patient went into Septic Shock this afternoon. Discussed with the [facility] Director and he was transferred to ICU Plan to maintain BP for now and decide for further management plan after discussing with the in person. 03/20/2020 The patient was seen and examined in ICU His condition deteriorated and remains semi-responsive Minimal shortness of breath at rest Opens eyes on command and unresponsive to any other commands 03/21/2020 He has been put on comfort care only Has had a long discussion with the family members especially the prior to this He remains critical but comfortable 03/22/2020 The patient was seen and examined in medical floor He remains comfortable Opens his eyes with commands and looks a little brighter than yesterday 03/23/2020 The patient was seen and examined in medical floor He remains comfortable and has been trying to communicate Physical Exam Physical Exam: Lying in bed comfortably Constitutional: + ill appearing and + obese; no acute distress Neurologic: Remains semi-responsive (1) Diabetic ulcer of left heel associated with diabetes mellitus due to underlying condition Non-pressure ulcer stage: unspecified non-pressure ulcer stage Qualified Code(s): E08.621 - Diabetes mellitus due to underlying condition with foot ulcer; L97.429 - Non-pressure chronic ulcer of left heel and midfoot with unspecified severity (2) Atrial fibrillation Atrial fibrillation type: unspecified Qualified Code(s): I48.91 - Unspecified atrial fibrillation
[2020-03-24] MEDS: ATROPINE SULFATE 1% OP SOLN 2 ML BTL SL PRN (02:16)
--- NOTE | 2020-03-24 14:25 | Hospitalist Progress Note ---
Date of Service March 24, 2020 Assessment & Plan (1) Complicated UTI (urinary tract infection): Comfort care only Patient has been on comfort care only since last evening After long discussion with the and palliative care provider the decision of comfort care was taken Patient remains critical but comfortable We will continue current supportive measures Remains comfortable-we will continue comfort care Has had a long discussion with the and the daughter yesterday 03/21/2020 Critical but stable-continue comfort care only Remains stable but critical Below is the progress note for current hospitalization. Patient is an 85 Yr male with H/O ESRD on HD, IDDM, dementia, chronic atrial fibrillation, CAD and other medical problems as below who presents from [facility] with lethargy x 1 week with multidrug-resistant Klebsiella urinary tract infection. Acute metabolic encephalopathy likely multifactorial due to ongoing infection and is complicated by end-stage renal disease and Alzheimer's dementia Foot Wounds/Ulcers Possible Sepsis-POA H/O MRSA Outpatient UTI with 03/11 culture growing multidrug-resistant Klebsiella pneumonia --CT Head: No acute intracranial abnormality. 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 --CXR: No acute cardiopulmonary findings. No change in appearance of the chest. Blood Culture: No growth to date Urine Culture: Gram-negative bacilli-ESBL and is resistant to multiple antibiotics Continue vancomycin, Avycaz Day #4 Consulted ID--pending Appreciate orthopedics input -not a good candidate for surgery Continue wound care and current management with antibiotic Hypotension Blood pressure low today and patient more lethargic Give IV fluids rest for now Clinically deteriorating Low threshold to transfer to ICU for pressors Discussed with --Appreciate Input Updated Patient's over phone in detail Consider broadening IV antibiotics Appreciate palliative care input and recommendation Overall prognosis remains very poor Discussed with the last evening and updated his current deteriorating condition He was transferred to ICU to start a pressor agent to sustain blood pressure before she can come and see him in person Will discuss about possible comfort care with the when she arrives Hypokalemia Hypophosphatemia Normal magnesium level Replete electrolytes as needed (2) Acute metabolic encephalopathy: As above Poorly responsive (3) Diabetic ulcer of left heel associated with diabetes mellitus due to underlying condition: Management as above With input and recommendation Not a very good candidate for surgery given his current situation (4) MRSA infection: Follows with wound care clinic for left heel ulcer H/O recent surgical debridement of Left heel ulcer by Dr. Galdamez on 02/21/20 Wound culture grew MRSA ID consulted-awaiting update from ID Patient general condition has been deteriorating and if he goes for comfort care will cancel ID consult Management as above (5) Diabetes mellitus type 2, insulin dependent: Continue Basal/bolus insulin while in-patient Monitor BSG AC HS Insulin adjusted due to hypoglycemic episodes (6) ESRD (end stage renal disease) on dialysis: on HD Nephrology consulted to assist with dialysis Could not tolerate hemodialysis secondary to low blood pressure today Dialysis has been possible due to low blood pressure Has volume overload and may need dialysis -await nephrology evaluation today (7) Atrial fibrillation: Continue metoprolol Eliquis held due to hematuria (8) Hypothyroidism: Continue levothyroxine Dementia Unknown baseline No agitation DVT Px: Eliquis--held due to hematuria Code status: DNR/DNI PCP: at [facility] Disposition: Case management consulted to help with discharge plan Will discuss with the and are other family members for possible comfort care from here Overall prognosis remains very poor Admission and Anticipated Discharge Date Admission Date: March 15, 2020 Subjective 03/19/2020 The patient was seen and examined in medical telemetry unit He has been severe lethargic since last evening and has not been communicating during examination this morning He could hardly open his eyes on commands but otherwise did not communicate with me Patient went into Septic Shock this afternoon. Discussed with the Ross Carrier Driver and he was transferred to ICU Plan to maintain BP for now and decide for further management plan after discussing with the in person. 03/20/2020 The patient was seen and examined in ICU His condition deteriorated and remains semi-responsive Minimal shortness of breath at rest Opens eyes on command and unresponsive to any other commands 03/21/2020 He has been put on comfort care only Has had a long discussion with the family members especially the prior to this He remains critical but comfortable 03/22/2020 The patient was seen and examined in medical floor He remains comfortable Opens his eyes with commands and looks a little brighter than yesterday 03/23/2020 The patient was seen and examined in medical floor He remains comfortable and has been trying to communicate 03/24/2020 The patient remains stable without any acute distress Communicating minimally Review of Systems Review of Systems: Unobtainable due to reduced consciousness Physical Exam Physical Exam: Lying in bed comfortably Constitutional: well developed, well nourished, + ill appearing and + obese; no acute distress Eyes: Closed ENMT: external ear and nose normal, oropharynx normal Neck: trachea midline, no thyromegaly Respiratory: Auscultation: + diminished lung sounds (Transmitted sounds from trachea and bibasilar crackles) Cardiovascular: Rate/Rhythm: + abnormal rate and + abnormal rhythm Heart Sounds: + murmur (2/6 ESM over precordium) Extremities: + edema Gastrointestinal (Abdomen): Inspection/Auscultation: abdomen normal to inspection and normal bowel sounds; abdomen not distended Neurologic: Remains semi-conscious Lymphatic: no cervical or axillary lymphadenopathy (1) Diabetic ulcer of left heel associated with diabetes mellitus due to underlying condition Non-pressure ulcer stage: unspecified non-pressure ulcer stage Qualified Code(s): E08.621 - Diabetes mellitus due to underlying condition with foot ulcer; L97.429 - Non-pressure chronic ulcer of left heel and midfoot with unspecified severity (2) Atrial fibrillation Atrial fibrillation type: unspecified Qualified Code(s): I48.91 - Unspecified atrial fibrillation
--- NOTE | 2020-03-25 12:32 | Palliative Care Progress Note ---
Date of Service March 25, 2020 Assessment & Plan (1) Goals of care, counseling/discussion: Patient is an 85-year-old male with a past medical history significant for CKD stage V-on HD, CHF, A. fib, CAD-status post CABG, ICM O-status post pacemaker/AICD 2013, hypertension, diabetes-A1c 6.1 in September, GERD, dementia, depression, hypothyroidism, chronic venous insufficiency with bilateral heel ulcers, obesity/MILE who was sent to [facility] from [facility] on 03/15 for continued lethargy of 1 week duration and new onset hematuria. Admission evaluation included a CT scan that was negative for any acute findings, urine positive for multidrug-resistant Klebsiella patient with chronic bilateral heel wounds- underwent debridement on 02/22, biopsy positive for osteomyelitis. Patient currently on IV vancomycin as well as Avycaz. Patient's dialysis was held on 03/16 due to increased weakness and volume contraction-he did undergo HD on 03/18 and is planned for HD today. Patient has remained lethargic and minimally responsive yesterday and today. Patient's creatinine on admission was 5.1-was 7.75 on 03/19, hemoglobin on admission was 9.4, 8.6 on 03/19. Patient underwent angioplasty for a nonfunctioning left upper extremity AV fistula on 03/06. -Patient seen and examined in room 359-patient opened eyes and attempted to speak in response to voice -Patient only taking sips orally. -Spoke to patient's by phone-patient is on comfort measures only, his last HD was on 03/20, making his first missed HD as 03/22-patient's prognosis is 7 days or less -Patient has been at [facility] since 05/30/2019. states she is unable to care for him herself at home. Patient is currently on a bed hold-as of exam today he is medically stable for transfer her back to [facility] with hospice care -PPS 30% (2) ESRD (end stage renal disease) on dialysis: No further HD planned, last HD was on 03/20 -comfort care only (3) Alzheimer's dementia: Unable to determine FAST score due to being minimally responsive (4) Anemia in chronic kidney disease (CKD): Hemoglobin 8.6 (5) Diabetes mellitus type 2, insulin dependent: On comfort meds only (6) CHF (congestive heart failure), NYHA class III: On comfort meds only Admission and Anticipated Discharge Date Admission Date: March 15, 2020 Subjective Patient seen and examined, no family at bedside. Spoke with patient's , Sonja, at [phone] plans to be in to see patient early this afternoon. Collaborated with attending physician as well as case management. Patient did not require any PRN comfort meds overnight, no acute issues per nursing. Based on exam this a.m., patient is medically stable for transfer back to [facility] under hospice care for end-of-life care. Review of Systems Review of Systems: Unobtainable due to cognitive status Physical Exam Physical Exam: PE: Patient awake, alert, speech mumbled and difficult to understand. Unable to answer simple questions HEENT: EOMI, moist mucous membranes Respiratory: Unlabored, upper airway secretions noted CV: Regular rate, decreased lower extremity edema Abdomen: Soft, nontender to palpation Extremities: Generalized weakness Neuro: Unable to assess PG Care Time/CCT Total # of Minutes Spent Total Time Spent with Patient: Total time spent 35 minutes with greater than 50% of the time spent at bedside assessing patient's level of comfort as well as discussing goals and plan of care with , collaborated with attending physician as well as case management. Coding Level of Care Code 55719 Subseq Hosp Care Lvl 3 Diagnoses Goals of care, counseling/discussion Z71.89 Time Spent (min) 35
--- NOTE | 2020-03-25 15:38 | Hospitalist Progress Note ---
Date of Service March 25, 2020 Assessment & Plan (1) Complicated UTI (urinary tract infection): Comfort care only Patient has been on comfort care only since last evening After long discussion with the and palliative care provider the decision of comfort care was taken Patient remains critical but comfortable We will continue current supportive measures Remains comfortable-we will continue comfort care Has had a long discussion with the and the daughter yesterday 03/21/2020 Remains stable and has been more responsive and responding appropriately to commands Has been eating and drinking reasonably Discussed with the family members and the [facility]. Prognosis remains poor Below is the progress note for current hospitalization. Patient is an 85 Yr male with H/O ESRD on HD, IDDM, dementia, chronic atrial fi brillation, CAD and other medical problems as below who presents from [facility] with lethargy x 1 week with multidrug-resistant Klebsiella urinary tract infection. Acute metabolic encephalopathy likely multifactorial due to ongoing infection and is complicated by end-stage renal disease and Alzheimer's dementia Foot Wounds/Ulcers Possible Sepsis-POA H/O MRSA Outpatient UTI with 03/11 culture growing multidrug-resistant Klebsiella pneumonia --CT Head: No acute intracranial abnormality. 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 --CXR: No acute cardiopulmonary findings. No change in appearance of the chest. Blood Culture: No growth to date Urine Culture: Gram-negative bacilli-ESBL and is resistant to multiple antibiotics Continue vancomycin, Avycaz Day #4 Consulted ID--pending Appreciate orthopedics input -not a good candidate for surgery Continue wound care and current management with antibiotic Hypotension Blood pressure low today and patient more lethargic Give IV fluids rest for now Clinically deteriorating Low threshold to transfer to ICU for pressors Discussed with --Appreciate Input Updated Patient's over phone in detail Consider broadening IV antibiotics Appreciate palliative care input and recommendation Overall prognosis remains very poor Discussed with the last evening and updated his current deteriorating condition He was transferred to ICU to start a pressor agent to sustain blood pressure before she can come and see him in person Will discuss about possible comfort care with the when she arrives Hypokalemia Hypophosphatemia Normal magnesium level Replete electrolytes as needed (2) Acute metabolic encephalopathy: As above Poorly responsive (3) Diabetic ulcer of left heel associated with diabetes mellitus due to underlying condition: Management as above With input and recommendation Not a very good candidate for surgery given his current situation (4) MRSA infection: Follows with wound care clinic for left heel ulcer H/O recent surgical debridement of Left heel ulcer by Dr. Galdamez on 02/21/20 Wound culture grew MRSA ID consulted-awaiting update from ID Patient general condition has been deteriorating and if he goes for comfort care will cancel ID consult Management as above (5) Diabetes mellitus type 2, insulin dependent: Continue Basal/bolus insulin while in-patient Monitor BSG AC HS Insulin adjusted due to hypoglycemic episodes (6) ESRD (end stage renal disease) on dialysis: on HD Nephrology consulted to assist with dialysis Could not tolerate hemodialysis secondary to low blood pressure today Dialysis has been possible due to low blood pressure Has volume overload and may need dialysis -await nephrology evaluation today (7) Atrial fibrillation: Continue metoprolol Eliquis held due to hematuria (8) Hypothyroidism: Continue levothyroxine Dementia Unknown baseline No agitation DVT Px: Eliquis--held due to hematuria Code status: DNR/DNI PCP: at [facility] Disposition: Case management consulted to help with discharge plan Will discuss with the and are other family members for possible comfort care from here Overall prognosis remains very poor Admission and Anticipated Discharge Date Admission Date: March 15, 2020 Subjective 03/19/2020 The patient was seen and examined in medical telemetry unit He has been severe lethargic since last evening and has not been communicating during examination this morning He could hardly open his eyes on commands but otherwise did not communicate with me Patient went into Septic Shock this afternoon. Discussed with the Volleyball Assembler and he was transferred to ICU Plan to maintain BP for now and decide for further management plan after discussing with the in person. 03/20/2020 The patient was seen and examined in ICU His condition deteriorated and remains semi-responsive Minimal shortness of breath at rest Opens eyes on command and unresponsive to any other commands 03/21/2020 He has been put on comfort care only Has had a long discussion with the family members especially the prior to this He remains critical but comfortable 03/22/2020 The patient was seen and examined in medical floor He remains comfortable Opens his eyes with commands and looks a little brighter than yesterday 03/23/2020 The patient was seen and examined in medical floor He remains comfortable and has been trying to communicate 03/24/2020 The patient remains stable without any acute distress Communicating minimally 03/25/2020 The patient was seen and examined in medical floor He has been much better today and alert, awake and responding appropriately to commands He has been eating reasonably and is free from any acute distress He seems to be stable given his critical condition and this was discussed with the family members [facility] Physical Exam Physical Exam: Lying in bed comfortably Constitutional: well developed, well nourished, + ill appearing and + obese; no acute distress ENMT: external ear and nose normal, oropharynx normal Neck: trachea midline, no thyromegaly Respiratory: + respiratory distress (Minimal respiratory distress at rest) Auscultation: + diminished lung sounds (Transmitted sounds from trachea and bibasilar crackles) Cardiovascular: Rate/Rhythm: + abnormal rate and + abnormal rhythm Heart Sounds: + murmur (2/6 ESM over precordium) Extremities: + edema Gastrointestinal (Abdomen): Inspection/Auscultation: abdomen normal to inspection and normal bowel sounds; abdomen not distended Neurologic: Alert and awake today. Responding appropriately to commands. Lymphatic: no cervical or axillary lymphadenopathy (1) Diabetic ulcer of left heel associated with diabetes mellitus due to underlying condition Non-pressure ulcer stage: unspecified non-pressure ulcer stage Qualified Code(s): E08.621 - Diabetes mellitus due to underlying condition with foot ulcer; L97.429 - Non-pressure chronic ulcer of left heel and midfoot with unspecified severity (2) Atrial fibrillation Atrial fibrillation type: unspecified Qualified Code(s): I48.91 - Unspecified atrial fibrillation
--- NOTE | 2020-03-26 12:47 | Hospitalist Progress Note ---
Date of Service March 26, 2020 Assessment & Plan (1) Complicated UTI (urinary tract infection): Comfort care only Patient has been on comfort care only since last evening After long discussion with the and palliative care provider the decision of comfort care was taken Patient remains critical but comfortable We will continue current supportive measures Remains comfortable-we will continue comfort care Has had a long discussion with the and the daughter yesterday 03/21/2020 Remains stable and has been more responsive and responding appropriately to commands Has been eating and drinking reasonably Discussed with the family members and the patient will be transferred to [facility] with hospice, likely tomorrow. Prognosis remains poor He will be transferred to [facility] this afternoon with hospice care He will have diet as tolerated and medications will be given as needed basis. COVID-19 test has been sent Below is the progress note for current hospitalization. Patient is an 85 Yr male with H/O ESRD on HD, IDDM, dementia, chronic atrial fibrillation, CAD and other medical problems as below who presents from [facility] with lethargy x 1 week with multidrug-resistant Klebsiella urinary tract infection. Acute metabolic encephalopathy likely multifactorial due to ongoing infection and is complicated by end-stage renal disease and Alzheimer's dementia Foot Wounds/Ulcers Possible Sepsis-POA H/O MRSA Outpatient UTI with 03/11 culture growing multidrug-resistant Klebsiella pneumonia --CT Head: No acute intracranial abnormality. 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 --CXR: No acute cardiopulmonary findings. No change in appearance of the chest. Blood Culture: No growth to date Urine Culture: Gram-negative bacilli-ESBL and is resistant to multiple antibiotics Continue vancomycin, Avycaz Day #4 Consulted,--pending Appreciate orthopedics input -not a good candidate for surgery Continue wound care and current management with antibiotic Hypotension Blood pressure low today and patient more lethargic Give IV fluids rest for now Clinically deteriorating Low threshold to transfer to ICU for pressors Discussed with --Appreciate Input Updated Patient's over phone in detail Consider broadening IV antibiotics Appreciate palliative care input and recommendation Overall prognosis remains very poor Discussed with the last evening and updated his current deteriorating condition He was transferred to ICU to start a pressor agent to sustain blood pressure before she can come and see him in person Will discuss about possible comfort care with the when she arrives Hypokalemia Hypophosphatemia Normal magnesium level Replete electrolytes as needed (2) Acute metabolic encephalopathy: As above Poorly responsive (3) Diabetic ulcer of left heel associated with diabetes mellitus due to underlying condition: Management as above With input and recommendation Not a very good candidate for surgery given his current situation (4) MRSA infection: Follows with wound care clinic for left heel ulcer H/O recent surgical debridement of Left heel ulcer by Dr. Galdamez on 02/21/20 Wound culture grew MRSA ID consulted-awaiting update from ID Patient general condition has been deteriorating and if he goes for comfort care will cancel ID consult Management as above (5) Diabetes mellitus type 2, insulin dependent: Continue Basal/bolus insulin while in-patient Monitor BSG AC HS Insulin adjusted due to hypoglycemic episodes (6) ESRD (end stage renal disease) on dialysis: on HD Nephrology consulted to assist with dialysis Could not tolerate hemodialysis secondary to low blood pressure today Dialysis has been possible due to low blood pressure Has volume overload and may need dialysis -await nephrology evaluation today (7) Atrial fibrillation: Continue metoprolol Eliquis held due to hematuria (8) Hypothyroidism: Continue levothyroxine Dementia Unknown baseline No agitation DVT Px: Eliquis--held due to hematuria Code status: DNR/DNI PCP: at [facility] Disposition: Case management consulted to help with discharge plan Will discuss with the and are other family members for possible comfort care from here Overall prognosis remains very poor Discussed with the family members concerned Admission and Anticipated Discharge Date Admission Date: March 15, 2020 Subjective 03/19/2020 The patient was seen and examined in medical telemetry unit He has been severe lethargic since last evening and has not been communicating during examination this morning He could hardly open his eyes on commands but otherwise did not communicate with me Patient went into Septic Shock this afternoon. Discussed with the Telephone Advice Nurse and he was transferred to ICU Plan to maintain BP for now and decide for further management plan after discussing with the in person. 03/20/2020 The patient was seen and examined in ICU His condition deteriorated and remains semi-responsive Minimal shortness of breath at rest Opens eyes on command and unresponsive to any other commands 03/21/2020 He has been put on comfort care only Has had a long discussion with the family members especially the prior to this He remains critical but comfortable 03/22/2020 The patient was seen and examined in medical floor He remains comfortable Opens his eyes with commands and looks a little brighter than yesterday 03/23/2020 The patient was seen and examined in medical floor He remains comfortable and has been trying to communicate 03/24/2020 The patient remains stable without any acute distress Communicating minimally 03/25/2020 The patient was seen and examined in medical floor He has been much better today and alert, awake and responding appropriately to commands He has been eating reasonably and is free from any acute distress He seems to be stable given his critical condition and this was discussed with the family members He will be transferred to [facility] with hospice, if possible tomorrow 03/26/2020 The patient was seen and examined in medical floor in presence of the daughter He remains stable and has been communicating reasonably with me Denies any significant pain and/or shortness of breath Physical Exam Physical Exam: Lying in bed comfortably Constitutional: well developed, well nourished, + ill appearing and + obese; no acute distress ENMT: external ear and nose normal, oropharynx normal Neck: trachea midline, no thyromegaly Respiratory: + respiratory distress (Minimal respiratory distress at rest) Auscultation: + diminished lung sounds (Transmitted sounds from trachea and bibasilar crackles) Cardiovascular: Rate/Rhythm: + abnormal rate and + abnormal rhythm Heart Sounds: + murmur (2/6 ESM over precordium) Extremities: + edema Gastrointestinal (Abdomen): Inspection/Auscultation: abdomen normal to inspection and normal bowel sounds; abdomen not distended Neurologic: Very weak and lethargic. Communicating almost normally. Lymphatic: no cervical or axillary lymphadenopathy (1) Diabetic ulcer of left heel associated with diabetes mellitus due to underlying condition Non-pressure ulcer stage: unspecified non-pressure ulcer stage Qualified Code(s): E08.621 - Diabetes mellitus due to underlying condition with foot ulcer; L97.429 - Non-pressure chronic ulcer of left heel and midfoot with unspecified severity (2) Atrial fibrillation Atrial fibrillation type: unspecified Qualified Code(s): I48.91 - Unspecified atrial fibrillation
--- NOTE | 2020-03-26 14:24 | Palliative Care Progress Note ---
Date of Service March 26, 2020 Assessment & Plan (1) Goals of care, counseling/discussion: Patient is an 85-year-old male with a past medical history significant for CKD stage V-on HD, CHF, A. fib, CAD-status post CABG, ICM O-status post pacemaker/AICD 2013, hypertension, diabetes-A1c 6.1 in September, GERD, dementia, depression, hypothyroidism, chronic venous insufficiency with bilateral heel ulcers, obesity/MILE who was sent to [facility] from [facility] on 03/15 for continued lethargy of 1 week duration and new onset hematuria. Admission evaluation included a CT scan that was negative for any acute findings, urine positive for multidrug-resistant Klebsiella patient with chronic bilateral heel wounds- underwent debridement on 02/22, biopsy positive for osteomyelitis. Patient currently on IV vancomycin as well as Avycaz. Patient's dialysis was held on 03/16 due to increased weakness and volume contraction-he did undergo HD on 03/18 and is planned for HD today. Patient has remained lethargic and minimally responsive yesterday and today. Patient's creatinine on admission was 5.1-was 7.75 on 03/19, hemoglobin on admission was 9.4, 8.6 on 03/19. Patient underwent angioplasty for a nonfunctioning left upper extremity AV fistula on 03/06. -Patient seen and examined in room 359-patient opened eyes and attempted to speak in response to voice -Patient only taking sips orally. -Spoke to patient's by phone-patient is on comfort measures only, his last HD was on 03/20, making his first missed HD as 03/22-patient's prognosis is 7 days or less -Patient has been at [facility] since 05/30/2019. states she is unable to care for him herself at home. Patient is currently on a bed hold-as of exam today he is medically stable for transfer her back to [facility] with hospice care -PPS 30% (2) ESRD (end stage renal disease) on dialysis: No further HD planned, last HD was on 03/20 -comfort care only (3) Alzheimer's dementia: Unable to determine FAST score due to being minimally responsive (4) Anemia in chronic kidney disease (CKD): Hemoglobin 8.6 (5) Diabetes mellitus type 2, insulin dependent: On comfort meds only (6) CHF (congestive heart failure), NYHA class III: On comfort meds only Admission and Anticipated Discharge Date Admission Date: March 15, 2020 Subjective Patient seen and examined in room 359, no friends or family at bedside. Patient was awake and alert, slightly more confused than on exam yesterday, was able to answer simple questions with a few words, stated he was comfortable. Patient is planned for return to [facility] under hospice care with [facility]. Review of Systems Review of Systems: Patient denied pain, fever, chills, chest pain, shortness of breath, or abdominal pain. Physical Exam Physical Exam: PE: Patient awake, alert, slightly more confused than exam yesterday HEENT: EOMI, dry mucous membranes Respirations: Unlabored, decreased at bases due to poor inspiratory effort CV: Regular rate, lower extremity edema decreasing Abdomen: Soft, nontender Extremities: Generalized weakness Neuro: Oriented to person, increasing confusion. PG Care Time/CCT Total # of Minutes Spent Total Time Spent with Patient: Total time spent 35 minutes with greater than 50% of the time spent at bedside assessing patient's stability for transfer as well as comfort level. Collaborated with attending physician Coding Level of Care Code 04514 Subseq Hosp Care Lvl 3 Diagnoses Goals of care, counseling/discussion Z71.89 Time Spent (min) 35
--- NOTE | 2020-03-27 10:57 | Discharge Summary ---
Date of Service March 27, 2020 Admission HPI Per Admitting Provider This is an 85yo M with a PMH of ESRD on HD, IDDM, dementia, chronic atrial fibrillation, CAD and other medical problems as below who presents from [facility] with lethargy x 1 week following surgical debridement of L heel ulcer. Has also developed gross hematuria over the past 5 days, per long-term documentation. UA grossly positive for potential UTI with 03/11 culture growing multidrug-resistant Klebsiella pneumonia, carbon pending maze producing organism. Has very limited urine output due to end-stage renal disease. Per outpatient note, no fever, chills, vomiting or diarrhea but has had some lower abdominal pain for the past few days. Refused all medications this morning. BP low at baseline, 90s/50s. Unable to obtain ROS beyond that due to significant dementia. Was evaluated by Dr. Wood of infectious disease via [facility] for assistance on multi drug resistant Klebsiella UTI. Patient also known to ID service due to history of MRSA in left lower extremity. Recommendation made for ER and further treatment with IV antibiotics. Admission Exam Per Admitting Provider Vitals signs as noted above General Appearance:Moderately built and nourished, no apparent distress, Chronic ill appearing Head: normocephalic, Atraumatic Eyes: normal inspection, EOMI, PERRL Neck: supple, Trachea midline Respiratory/Chest: Decreased breath sounds, Scattered crackles Cardiovascular: Paced rhythm, no murmur, +Pacemaker Abdomen/GI:Soft, Non tender, Bowel sounds present Extremities/Musculoskelatal:normal inspection, B/L LE wounds Neurologic/Psych: Decreased responsiveness, unable to perform complete neurological exam Skin: normal color, warm, + Vertical well healed surgical scar Principal Diagnosis End-stage renal failure, complicated UTI, metabolic encephalopathy, hypotension, atrial fibrillation, comfort care now Discharge Exam Constitutional well developed, well nourished, + ill appearing and + obese; no acute distress ENMT external ear and nose normal, oropharynx normal Neck trachea midline, no thyromegaly Respiratory + respiratory distress (Minimal respiratory distress at rest) Auscultation: + diminished lung sounds (Transmitted sounds from trachea and bibasilar crackles) Cardiovascular Rate/Rhythm: + abnormal rate and + abnormal rhythm Heart Sounds: + murmur (2/6 ESM over precordium) Extremities: + edema Gastrointestinal (Abdomen) Inspection/Auscultation: abdomen normal to inspection and normal bowel sounds; abdomen not distended Lymphatic no cervical or axillary lymphadenopathy Discharge Data Allergies Allergy/AdvReac Type Severity Reaction Status Date / Time clindamycin AdvReac Mild Nausea Verified 03/15/20 17:40 Consultations 03/15/20 18:11 ED Decision to Admit Stat 03/15/20 19:49 Consult Case Management - Discharge Planning Routine Consult Infectious Diseases Routine 03/16/20 11:23 Consult Orthopedic Surgery Routine 03/18/20 15:32 Consult Palliative Care Routine 03/19/20 16:19 Consult Veterans Service Representative Routine 03/20/20 17:11 Consult Case Management - Discharge Planning Routine Ordered Studies 03/15/20 16:12 CT head/brain wo con Stat 03/18/20 06:04 CT abd pelvis wo con Urgent 03/18/20 13:00 hemodialysis access Urgent Hospital Course (1) Complicated UTI (urinary tract infection): Comfort care only Patient has been on comfort care only since last evening After long discussion with the and palliative care provider the decision of comfort care was taken Patient remains critical but comfortable We will continue current supportive measures Remains comfortable-we will continue comfort care Has had a long discussion with the and the daughter yesterday 03/21/2020 Remains stable and has been more responsive and responding appropriately to commands Has been eating and drinking reasonably Discussed with the family members and the patient will be transferred to [facility] with hospice, likely tomorrow. Prognosis remains poor He will be transferred to [facility] this afternoon with hospice care He will have diet as tolerated and medications will be given as needed basis. COVID-19 test has been sent Below is the progress note for current hospitalization. Patient is an 85 Yr male with H/O ESRD on HD, IDDM, dementia, chronic atrial fibrillation, CAD and other medical problems as below who presents from [facility] with lethargy x 1 week with multidrug-resistant Klebsiella urinary tract infection. Acute metabolic encephalopathy likely multifactorial due to ongoing infection and is complicated by end-stage renal disease and Alzheimer's dementia Foot Wounds/Ulcers Possible Sepsis-POA H/O MRSA Outpatient UTI with 03/11 culture growing multidrug-resistant Klebsiella pneumonia --CT Head: No acute intracranial abnormality. 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 --CXR: No acute cardiopulmonary findings. No change in appearance of the chest. Blood Culture: No growth to date Urine Culture: Gram-negative bacilli-ESBL and is resistant to multiple antibiotics Continue vancomycin, Avycaz Day #4 Consulted,--pending Appreciate orthopedics input -not a good candidate for surgery Continue wound care and current management with antibiotic Hypotension Blood pressure low today and patient more lethargic Give IV fluids rest for now Clinically deteriorating Low threshold to transfer to ICU for pressors Discussed with --Appreciate Input Updated Patient's over phone in detail Consider broadening IV antibiotics Appreciate palliative care input and recommendation Overall prognosis remains very poor Discussed with the last evening and updated his current deteriorating condition He was transferred to ICU to start a pressor agent to sustain blood pressure before she can come and see him in person Will discuss about possible comfort care with the when she arrives Hypokalemia Hypophosphatemia Normal magnesium level Replete electrolytes as needed (2) Acute metabolic encephalopathy: As above Poorly responsive (3) Diabetic ulcer of left heel associated with diabetes mellitus due to underlying condition: Management as above With input and recommendation Not a very good candidate for surgery given his current situation (4) MRSA infection: Follows with wound care clinic for left heel ulcer H/O recent surgical debridement of Left heel ulcer by Dr. Galdamez on 02/21/20 Wound culture grew MRSA ID consulted-awaiting update from ID Patient general condition has been deteriorating and if he goes for comfort care will cancel ID consult Management as above (5) Diabetes mellitus type 2, insulin dependent: Continue Basal/bolus insulin while in-patient Monitor BSG AC HS Insulin adjusted due to hypoglycemic episodes (6) ESRD (end stage renal disease) on dialysis: on HD Nephrology consulted to assist with dialysis Could not tolerate hemodialysis secondary to low blood pressure today Dialysis has been possible due to low blood pressure Has volume overload and may need dialysis -await nephrology evaluation today (7) Atrial fibrillation: Continue metoprolol Eliquis held due to hematuria (8) Hypothyroidism: Continue levothyroxine Dementia Unknown baseline No agitation DVT Px: Eliquis--held due to hematuria Code status: DNR/DNI PCP: at [facility] Disposition: Case management consulted to help with discharge plan Will discuss with the and are other family members for possible comfort care from here Overall prognosis remains very poor Discussed with the family members concerned Total Time Total Time Spent Total Time Spent (In Minutes): 40 minutes Total Time Includes: Examination of the Patient, Discharge Planning, Medication Reconciliation and Communication With Other Providers Discharge Plan Discharge Items Patient Disposition: Hospice - Medical Facility Reason For Visit: MDR KLEBSIELLA UTI, L FOOT MRSA Discharge Diagnosis: End-stage renal failure, complicated UTI, metabolic encephalopathy, hypotension, atrial fibrillation, comfort care now Condition on Discharge: Critical Activity: As commented below Activity Comment: Continue comfort care Non-emergency contact: Primary Care Provider Call non-emergency contact if: your pain is concerning for you Follow-up/Referrals: Cari Brewer at [place] [Primary Care Provider] - Diet: Regular Diet Texture: Easy to Chew Diet Comment: Diet as tolerated Addtl Attending Provider Instructions: Please keep him comfortable Medications as needed Pending Studies at Discharge: Yes Studies:: COVID-19 test Stand-Alone Forms: My [employer] Skilled Items Patient informed of condition?: Yes DNR: Yes Discharge Level of Care: Other Communicable Disease: No Discharge Prognosis: Stable Lines: None Urinary Catheter: No Medications and DC Order Prescriptions: New atropine 1 % Drops 4 drp sublingual Q1H PRN (Reason: secretions) Qty: 2 RF: 0 oxycodone 20 mg/mL concentrate 5 mg PO Q6H PRN (Reason: pain) Qty: 30 RF: 0 lorazepam [Ativan] 0.5 mg tablet 0.5 mg PO Q6H PRN (Reason: anxiety) Qty: 14 RF: 0 Continued Basaglar KwikPen U-100 Insulin 100 unit/mL (3 mL) insulin pen 18 unit SUBCUT Q12 RF: 0 pediatric multivitamin Tablet,Chewable 1 tab PO QPM RF: 0 ascorbic acid (vitamin C) [Vitamin C] 1,000 mg Tablet 1,000 mg PO QAM RF: 0 acetaminophen [Tylenol] 325 mg Tablet 650 mg PO Q4 MDD 3G PRN (Reason: ALL LEVELS OF PAIN/TEMP>100) RF: 0 levothyroxine 100 mcg tablet 100 mcg PO DAILY@0700 RF: 0 cholecalciferol (vitamin D3) [Vitamin D3] 25 mcg (1,000 unit) Tablet 25 mcg PO QAM RF: 0 insulin aspart U-100 [Novolog PenFill U-100 Insulin] 100 unit/mL Cartridge 1 sliding scale dose SUBCUT ACHS RF: 0 insulin aspart U-100 [Novolog U-100 Insulin aspart] 100 unit/mL Solution 5 unit SUBCUT .3XW/UD RF: 0 Discontinued bisacodyl [Dulcolax (bisacodyl)] 10 mg Suppository 10 mg MS DIRECTED PRN (Reason: Constipation) RF: 0 polyethylene glycol 3350 17 gram Powder In Packet 17 g PO DAILY PRN (Reason: Constipation) RF: 0 metoprolol succinate 25 mg Tablet Extended Release 24 Hr 12.5 mg PO BID RF: 0 escitalopram oxalate [Lexapro] 5 mg Tablet 7.5 mg PO QAM RF: 0 calcium acetate 667 mg Tablet 667 mg PO UD RF: 0 oxycodone 5 mg tablet 5 mg PO Q8H PRN (Reason: pain) Qty: 20 RF: 0 atorvastatin [Lipitor] 80 mg tablet 80 mg PO HS RF: 0 famotidine 10 mg Tablet 10 mg PO 4XWK RF: 0 nitroglycerin [Nitrostat] 0.4 mg Tablet, Sublingual 0.4 mg sublingual UD PRN (Reason: Chest Pain) RF: 0 docusate sodium [Colace] 100 mg Capsule 100 mg PO BID RF: 0 oxymetazoline [Afrin Sinus (oxymetazoline)] 0.05 % Roy,Non-Aerosol 2 spray INTRANASAL Q8 PRN (Reason: Nasal Congestion) RF: 0 Calcium 600 + D(3) 600 mg calcium- 200 unit Capsule 1 cap PO QAM RF: 0 acetaminophen [Tylenol Extra Strength] 500 mg Tablet 1,000 mg PO Q8 PRN (Reason: Pain) RF: 0 gabapentin 300 mg Capsule 600 mg PO BID RF: 0 Eliquis 2.5 mg tablet 2.5 mg PO BID RF: 0 Discharge Orders: Discharge Order (Routine); Ordered 03/26/20 Ordered By: Chandu Hernandez Admission Data Admit Date/Time: 03/15/20 18:14 Attending Provider: Chandu Hernandez Admit Provider: Charles Soto Primary Care Provider: Cari Brewer [facility] Other Providers: Cari Brewer [facility] ; Charles Soto ; Cristian Fowler ; Antoine Zacarias ; Derick Garcia I. ; Allen Herrmann II ; Roxana Haynes ; Raymond Poole ; Darrius Galdamezger,Serena H ; Shamir Gunderson Other Interventions: Discharge Summary Assessment (RN) Last Done: 03/26/20 14:40
== END 2020-03-26 16:36 | disposition hospice, inpatient (51) | DRG 871 ==
LOC: ED 15:31 → SUATTDRO 18:14 → 2W 18:14 → 1E 03-19 16:41 → 3W 03-20 18:11